=== PATIENT | female | born 1945 | race Caucasian/White ===

== ENCOUNTER 2019-12-22 17:52 | Emergency (ER) | payer MEDICARE, SELFPAY ==
--- NOTE | 2019-12-22 | ECG_ITS ---
Test Reason : SOB Blood Pressure : / mmHG Vent. Rate : 068 BPM Atrial Rate : 068 BPM P-R Int : 146 ms QRS Dur : 086 ms QT Int : 492 ms P-R-T Axes : 029 037 057 degrees QTc Int : 523 ms Sinus rhythm with frequent Premature ventricular complexes in a pattern of bigeminy Moderate voltage criteria for LVH, may be normal variant Prolonged QT Abnormal ECG When compared with ECG of 07-MAY-2019 19:09, Premature ventricular complexes are now Present Non-specific change in ST segment in Inferior leads Nonspecific T wave abnormality, improved in Inferior leads T wave inversion no longer evident in Lateral leads QT has lengthened Referred By: James Marsh Electronically Signed By:MAURICIO DE LA VEGA
--- NOTE | 2019-12-22 | XR_ITS ---
EXAMINATION: XR CHEST CLINICAL INFORMATION: Cough, wheezing, dyspnea, concern for pneumonia. COMPARISON: CTA chest 05/07/2019 TECHNIQUE: Frontal view of the chest was obtained. FINDINGS: Status post median sternotomy. Cardiomediastinal silhouette is normal in size. Status post CABG. Mild bronchial wall thickening without consolidation. No pleural effusion or pneumothorax. IMPRESSION: Mild bronchial wall thickening suggests small airways disease. No consolidation.
[2019-12-22 18:05] VITALS: BP 161/72; PULSE 74; RESP 14; TEMP 37.3; O2SAT 99; BMI 21.9
[2019-12-22] MEDS: Albuterol/Iprat 2.5/0.5MG 3 ML AMPUL.NEB INHALE (18:46)
--- NOTE | 2019-12-22 19:13 | ED.SOB ---
HPI - SOB/Dyspnea General Chief Complaint: Dyspnea <JESS Varma Last Filed: 12/23/19 02:04> Stated Complaint: cough,sob <JESS Varma Last Filed: 12/23/19 02:04> Time Seen by Provider: 12/22/19 18:41 <JESS Varma Last Filed: 12/23/19 02:04> History of Present Illness HPI Narrative: Patient presents to ED for coughing and shortness of breath for the past 2 days. Patient states white phlegm when coughing. Patient states no chest pain. Patient denies any swelling of lower extremities. Patient states no recent long travel or recent surgery. Patient does states history of asthma and no relief with albuterol. Patient denies anyone else at home having COVID like symptoms. Patient denies any chest pain on inspiration, swelling of lower extremity,calf pain, recent long travel, or recent surgery. patient denies coughing up blood <JESS Varma Last Filed: 12/23/19 02:04> MD elicited complaint: shortness of breath and asthma attack <JESS Varma Last Filed: 12/23/19 02:04> Pertinent past history: asthma <JESS Vrama Last Filed: 12/23/19 02:04> Onset (ago): day(s) ( Two days) <JESS Varma Last Filed: 12/23/19 02:04> Exacerbating factors: coughing <JESS Varma Last Filed: 12/23/19 02:04> Known history of: asthma <JESS Varma Last Filed: 12/23/19 02:04> Associated symptoms: cough, wheezing and sputum production (white) <JESS Varma Last Filed: 12/23/19 02:04> Treatment prior to arrival: bronchodilator <JESS Varma Last Filed: 12/23/19 02:04> Related Data Home oxygen amount: none <JESS Varma Last Filed: 12/23/19 02:04> Home Medications: Home Medications Medication Instructions Recorded Confirmed atorvastatin 40 mg tablet mg PO 12/17/19 blood sugar diagnostic #10 ea 12/17/19 calcium carbonate 600 mg (1,500 1 tab PO QAM 12/17/19 mg)-vitamin D3 400 unit tablet carvedilol 3.125 mg tablet 3.125 mg PO BID 12/17/19 donepezil 10 mg tablet 10 mg PO BEDTIME 12/17/19 fluoxetine 10 mg capsule 10 mg PO QAM 12/17/19 fluticasone 500 mcg-salmeterol 50 1 ea INHALATION BID 12/17/19 mcg/dose blistr powdr for inhalation fluticasone propionate 50 2 spray INTRANASAL DAILY 12/17/19 mcg/actuation nasal spray,suspension furosemide 20 mg tablet 20 mg PO QAM 12/17/19 gabapentin 300 mg capsule 300 mg PO BEDTIME 12/17/19 hydralazine 50 mg tablet 50 mg PO BID 12/17/19 insulin glargine 100 unit/mL (3 12 unit SUBCUT BEDTIME 12/17/19 mL) subcutaneous pen lancets 33 gauge #100 ea 12/17/19 losartan 25 mg tablet 25 mg PO DAILY 12/17/19 pen needle, diabetic 31 gauge x #1200 ea 12/17/19 5/16 trazodone 50 mg tablet 25 mg PO BEDTIME 12/17/19 umeclidinium 62.5 mcg/actuation 0 inh INHALATION 12/17/19 blister powder for inhalation Previous Rx's Medication Instructions Recorded albuterol sulfate 2 puff INHALATION Q6H PRN #18 g 12/23/19 benzonatate [Tessalon Perles] 100 mg PO TID #15 cap 12/23/19 prednisone 40 mg PO DAILY #10 tab 12/23/19 <JESS Varma - Last Filed: 12/23/19 02:04> Allergies/Adverse Reactions: Allergies Allergy/AdvReac Type Severity Reaction Status Date / Time No Known Allergies Allergy Unverified 12/04/19 18:29 [No Known Allergies*] <JESS Varma - Last Filed: 12/23/19 02:04> Review of Systems Review of Systems: Negative for any swelling of lower extremities, calf pain, fever, chills, night sweats, or increased use of pill at night. <JESS Varma - Last Filed: 12/23/19 02:04> Yes all other systems are reviewed and are negative <JESS Varma - Last Filed: 12/23/19 02:04> Constitutional: Constitutional: Reports no additional constitutional complaints and Denies snoring <JESS Varma - Last Filed: 12/23/19 02:04> Cardiovascular: Cardiovascular: Denies chest pain, Denies chest pain at rest, Denies chest pain with activity, Denies rapid heart rate, Denies pedal edema, Reports dyspnea, Denies dyspnea on exertion, Denies orthopnea and Denies paroxysmal nocturnal dyspnea <JESS Varma - Last Filed: 12/23/19 02:04> Respiratory: Respiratory: Reports cough, Denies hemoptysis, Denies pain on inspiration, Reports pain with cough, Reports dyspnea, Denies dyspnea on exertion, Denies snoring, Denies stridor and Reports wheezing <JESS Varma - Last Filed: 12/23/19 02:04> Gastrointestinal: Gastrointestinal: Reports no additional gastrointestinal complaints, Denies abdominal pain, Denies melena, Denies hematochezia and Denies change in bowel habits <JESS Varma - Last Filed: 12/23/19 02:04> Allergic/Immunologic: Allergic/Immunologic: Reports wheezing <JESS Varma - Last Filed: 12/23/19 02:04> [facility] Past Medical History Medical History: Medical History (Updated 12/23/19 @ 00:24 by JESS Varma) Asthma Diabetes Hypertension <JESS Varma - Last Filed: 12/23/19 02:04> Social History Social History: Social History Alcohol intake: never Smoking Status: Never smoker Use of substances other than those prescribed or required for medical reasons: No Advance Directives: No Advance Directives Information Provided: Yes <JESS Varma - Last Filed: 12/23/19 02:04> Physical Exam Vital Signs and I&O and Narrative: Vital Signs and I&O: Vital Signs Temp 97.9 F 12/22/19 22:00 Pulse 55 12/22/19 22:00 Resp 18 12/22/19 22:00 BP 166/73 H 12/22/19 22:00 Pulse Ox 99 12/22/19 22:00 Intake & Output 12/22/19 12/22/19 12/23/19 06:59 18:59 06:59 Intake Total 13.333 / 13.333 Balance 13.333 13.333 Weight 54.431 kg Intake: Intake, IV Amoun t 13. / 13.333 Magnesium Sulf ate/H2O 2 gm In 13.333 / 13.333 50 ml @ 50 mls /hr IV ONCE ONE Rx#:[id number] Body Mass Index 21.9 <JESS Varma Last Filed: 12/23/19 02:04> Vital Signs and I&O: Vital Signs Temp 97.9 F 12/22/19 22:00 Pulse 55 12/22/19 22:00 Resp 18 12/22/19 22:00 BP 166/73 H 12/22/19 22:00 Pulse Ox 99 12/22/19 22:00 Intake & Output 12/22/19 12/22/19 12/23/19 06:59 18:59 06:59 Intake Total 13.333 / 13.333 Balance 13. / 13.333 Weight 54.431 kg Intake: Intake, IV Amoun t 13. / .333 Magnesium Sulf ate/H2O 2 gm In 13. / .333 50 ml @ 50 mls /hr IV ONCE ONE Rx#:[id number] Body Mass Index 21.9 <Michael Mcpherson DO - Last Filed: 12/23/19 02:28> Const: General: healthy appearing and comfortable <JESS Varma Last Filed: 12/23/19 02:04> Orientation/consciousness: oriented to person, oriented to place, oriented to time and patient oriented x3 <JESS Varma Last Filed: 12/23/19 02:04> Chest: Chest palpation & inspection: normal inspection of the chest, normal palpation of entire chest wall, no crepitus and no localized rib tenderness <JESS Varma Last Filed: 12/23/19 02:04> Resp: Effort & Inspection: normal respiratory effort, able to speak in complete sentences, no pursed lip breathing, no respiratory distress, no stridor, not tachypneic, no tracheal deviation, no tripod positioning and No prolonged expiratory phase <JESS Varma Last Filed: 12/23/19 02:04> Auscultation: wheezes <JESS Varma Last Filed: 12/23/19 02:04> Cardio: Jugular venous distension: no JVD <JESS Varma Last Filed: 12/23/19 02:04> GI: Inspection: Yes normal to inspection, No Abdominal wall edema, No distended and No visible herniation <JESS Varma Last Filed: 12/23/19 02:04> Palpation (GI): nontender, no guarding and not rigid <JESS Varma Last Filed: 12/23/19 02:04> Neuro: General: oriented to person, oriented to place, oriented to time, patient oriented x3 and gait normal <JESS Varma Last Filed: 12/23/19 02:04> Extrem: General: Yes normal to inspection, Yes full ROM, Yes no pedal edema, Yes no calf tenderness and No edema <JESS Varma Last Filed: 12/23/19 02:04> Course Course Course Narrative: Patient 3 physical exam indicates asthma exacerbation, but due to history of DC patient will at least have a EKG and troponin done. Patient will be given hypertrophic BM, magnesium, and Solu-Medrol. Chest x-ray will also be ordered. History physical exam does not indicate PE <JESS Varma Last Filed: 12/23/19 02:04> Reevaluation(s) Reevaluation #1: history physical exam indicate asthma exacerbation. Patient feeling better. Patient's wheezing improved. 02 Saturation on room air is 99%. Patient's chest x-ray negative for pneumonia. BNP negative. Troponin less than 5 after 2 days of coughing with shortness of breath. History physical exam does not indicate CHF exacerbation, DC, or pneumonia. Patient is swabbed for COVID-19. Patient will be discharged <JESS Varma Last Filed: 12/23/19 02:04> Time: 23:57 <JESS Varma Last Filed: 12/23/19 02:04> MDM - SOB/Dyspnea Lab Data Result diagrams: : 12/22/19 22:20 12/22/19 21:57 <JESS Varma Last Filed: 12/23/19 02:04> Labs: Lab Results 10/05/20 10/05/20 10/05/20 Range/Units 20:58 20:58 20:58 WBC (4.8-10.8) X10*3/uL RBC (4.20-5.50) X10*6/uL Hgb (12.0-16.0) g/dl Hct (37-47) % MCV (80-98) fL MCH (27.0-33.0) pg MCHC (31.0-35.0) g/dl RDW (11.0-16.0) % Plt Count (160-400) X10*3/uL MPV (9.4-12.3) fL Immature Gran % (Auto) (0.0-0.4) % Neut % (Auto) (45-73) % Lymph % (Auto) (20-40) % [place] % (Auto) (2-11) % Eos % (Auto) (0-4) % Baso % (Auto) (0-2) % Neut # (Auto) (2.0-8.3) X10*3/uL Lymph # (Auto) (1.2-4.9) X10*3/uL [place] # (Auto) (0.1-1.2) X10*3/uL Eos # (Auto) (0.0-0.4) X10*3/uL Baso # (Auto) (0.0-0.2) X10*3/uL Abs Immat Gran (auto) (0.00-0.03) X10*3/uL Absolute Nucleated RBC (0.0-0.012) X10*3/uL Nucleated RBC % (auto) (0.0-0.2) /100WBC Smear Tech's Comments PT 12.1 (10.8-13.0) SEC INR 1.0 (0.9-1.1) APTT 30.0 (24.1-38.0) SEC Sodium (135-145) mmol/L Potassium (3.3-5.1) mmol/l Chloride (96-108) mmol/L Carbon Dioxide (22-29) mmol/L Anion Gap (12-20) BUN (9-16) mg/dL Creatinine (0.5-1.4) mg/dL Estim Creat Clear Calc Estimated GFR Random Glucose (60-115) mg/dL Calcium (8.4-10.2) mg/dL Magnesium (1.6-2.6) mg/dL Troponin I High Sens 4.1 (<3.5-17.0) ng/L B-Natriuretic Peptide 124 H (<100) pg/mL 12/22/19 12/22/19 12/22/19 Range/Units 21:57 21:57 22:20 WBC 9.3 (4.8-10.8) X10*3/uL RBC 3.83 L (4.20-5.50) X10*6/uL Hgb 11.3 L (12.0-16.0) g/dl Hct 36.7 L (37-47) % MCV 95.8 (80-98) fL MCH 29.5 (27.0-33.0) pg MCHC 30.8 L (31.0-35.0) g/dl RDW 12.5 (11.0-16.0) % Plt Count 218 (160-400) X10*3/uL MPV 11.3 (9.4-12.3) fL Immature Gran % (Auto) 0.1 (0.0-0.4) % Neut % (Auto) 32.5 L (45-73) % Lymph % (Auto) 41.6 H (20-40) % [place] % (Auto) 17.1 H (2-11) % Eos % (Auto) 8.1 H (0-4) % Baso % (Auto) 0.6 (0-2) % Neut # (Auto) 3.0 (2.0-8.3) X10*3/uL Lymph # (Auto) 3.9 (1.2-4.9) X10*3/uL [place] # (Auto) 1.6 H (0.1-1.2) X10*3/uL Eos # (Auto) 0.8 H (0.0-0.4) X10*3/uL Baso # (Auto) 0.1 (0.0-0.2) X10*3/uL Abs Immat Gran (auto) 0.01 (0.00-0.03) X10*3/uL Absolute Nucleated RBC 0.000 (0.0-0.012) X10*3/uL Nucleated RBC % (auto) 0.0 (0.0-0.2) /100WBC Smear Tech's Comments VERIFIED PT (10.8-13.0) SEC INR (0.9-1.1) APTT (24.1-38.0) SEC Sodium 142 (135-145) mmol/L Potassium 4.3 (3.3-5.1) mmol/l Chloride 107 (96-108) mmol/L Carbon Dioxide 26 (22-29) mmol/L Anion Gap 13 (12-20) BUN 16 (9-16) mg/dL Creatinine 0.98 (0.5-1.4) mg/dL Estim Creat Clear Calc 39.8 Estimated GFR 55 Random Glucose 98 (60-115) mg/dL Calcium 8.7 (8.4-10.2) mg/dL Magnesium 2.1 (1.6-2.6) mg/dL Troponin I High Sens (<3.5-17.0) ng/L B-Natriuretic Peptide (<100) pg/mL <JESS Varma - Last Filed: 12/23/19 02:04> Lab Results 12/22/19 12/22/19 12/22/19 Range/Units 20:58 20:58 20:58 WBC (4.8-10.8) X10*3/uL RBC (4.20-5.50) X10*6/uL Hgb (12.0-16.0) g/dl Hct (37-47) % MCV (80-98) fL MCH (27.0-33.0) pg MCHC (31.0-35.0) g/dl RDW (11.0-16.0) % Plt Count (160-400) X10*3/uL MPV (9.4-12.3) fL Immature Gran % (Auto) (0.0-0.4) % Neut % (Auto) (45-73) % Lymph % (Auto) (20-40) % [place] % (Auto) (2-11) % Eos % (Auto) (0-4) % Baso % (Auto) (0-2) % Neut # (Auto) (2.0-8.3) X10*3/uL Lymph # (Auto) (1.2-4.9) X10*3/uL [place] # (Auto) (0.1-1.2) X10*3/uL Eos # (Auto) (0.0-0.4) X10*3/uL Baso # (Auto) (0.0-0.2) X10*3/uL Abs Immat Gran (auto) (0.00-0.03) X10*3/uL Absolute Nucleated RBC (0.0-0.012) X10*3/uL Nucleated RBC % (auto) (0.0-0.2) /100WBC Smear Tech's Comments PT 12.1 (10.8-13.0) SEC INR 1.0 (0.9-1.1) APTT 30.0 (24.1-38.0) SEC Sodium (135-145) mmol/L Potassium (3.3-5.1) mmol/l Chloride (96-108) mmol/L Carbon Dioxide (22-29) mmol/L Anion Gap (12-20) BUN (9-16) mg/dL Creatinine (0.5-1.4) mg/dL Estim Creat Clear Calc Estimated GFR Random Glucose (60-115) mg/dL Calcium (8.4-10.2) mg/dL Magnesium (1.6-2.6) mg/dL Troponin I High Sens 4.1 (<3.5-17.0) ng/L B-Natriuretic Peptide 124 H (<100) pg/mL 12/22/19 12/22/19 12/22/19 Range/Units 21:57 21:57 22:20 WBC 9.3 (4.8-10.8) X10*3/uL RBC 3.83 L (4.20-5.50) X10*6/uL Hgb 11.3 L (12.0-16.0) g/dl Hct 36.7 L (37-47) % MCV 95.8 (80-98) fL MCH 29.5 (27.0-33.0) pg MCHC 30.8 L (31.0-35.0) g/dl RDW 12.5 (11.0-16.0) % Plt Count 218 (160-400) X10*3/uL MPV 11.3 (9.4-12.3) fL Immature Gran % (Auto) 0.1 (0.0-0.4) % Neut % (Auto) 32.5 L (45-73) % Lymph % (Auto) 41.6 H (20-40) % [place] % (Auto) 17.1 H (2-11) % Eos % (Auto) 8.1 H (0-4) % Baso % (Auto) 0.6 (0-2) % Neut # (Auto) 3.0 (2.0-8.3) X10*3/uL Lymph # (Auto) 3.9 (1.2-4.9) X10*3/uL [place] # (Auto) 1.6 H (0.1-1.2) X10*3/uL Eos # (Auto) 0.8 H (0.0-0.4) X10*3/uL Baso # (Auto) 0.1 (0.0-0.2) X10*3/uL Abs Immat Gran (auto) 0.01 (0.00-0.03) X10*3/uL Absolute Nucleated RBC 0.000 (0.0-0.012) X10*3/uL Nucleated RBC % (auto) 0.0 (0.0-0.2) /100WBC Smear Tech's Comments VERIFIED PT (10.8-13.0) SEC INR (0.9-1.1) APTT (24.1-38.0) SEC Sodium 142 (135-145) mmol/L Potassium 4.3 (3.3-5.1) mmol/l Chloride 107 (96-108) mmol/L Carbon Dioxide 26 (22-29) mmol/L Anion Gap 13 (12-20) BUN 16 (9-16) mg/dL Creatinine 0.98 (0.5-1.4) mg/dL Estim Creat Clear Calc 39.8 Estimated GFR 55 Random Glucose 98 (60-115) mg/dL Calcium 8.7 (8.4-10.2) mg/dL Magnesium 2.1 (1.6-2.6) mg/dL Troponin I High Sens (<3.5-17.0) ng/L B-Natriuretic Peptide (<100) pg/mL <Michael Mcpherson DO - Last Filed: 12/23/19 02:28> ECG Data Interpretation: sinus rhythm with PVCs bigeminy. Ventricular rate 68 beats per minute. Pr interval 146 MS <JESS Varma Last Filed: 12/23/19 02:04> Discharge Plan Discharge Clinical Impression: Asthma with exacerbation Qualifiers: Asthma severity: mild Asthma persistence: unspecified Qualified Code(s): J45.901 - Unspecified asthma with (acute) exacerbation <JESS Varma Last Filed: 12/23/19 02:04> Patient Disposition: Home, Self-Care <JESS Varma Last Filed: 12/23/19 02:04> Instructions: Asthma (ED) <JESS Varma Last Filed: 12/23/19 02:04> Additional Instructions: return to ED for any swelling of lower extremities, shortness of breath, chest pain, coughing up blood, calf pain, fever, chills, weakness, or any other concerning symptoms. If COVID test come back positive recommend 14 days self-isolation. <JESS Varma Last Filed: 12/23/19 02:04> Prescriptions: New albuterol sulfate 90 mcg/actuation HFA aerosol inhaler 2 puff inhalation Q6H PRN (Reason: shortness of breath or wheezing) Qty: 18 RF: 0 prednisone 20 mg tablet 40 mg PO DAILY Qty: 10 RF: 0 benzonatate [Tessalon Perles] 100 mg capsule 100 mg PO TID Qty: 15 RF: 0 <JESS Varma Last Filed: 12/23/19 02:04> Referrals: Physician,Unknown [Primary Care Provider] - 2 days ( please follow-up with the PCP for asthma exacerbation. Patient discharged with steroids, cough medication, and albuterol inhaler. Patient is swabbed for the COVID-19 virus.) <JESS Varma Last Filed: 12/23/19 02:04> Interventions: ED Discharge Assessment Last Done: 12/23/19 00:34 <JESS Varma Last Filed: 12/23/19 02:04> Discharge Date/Time: 12/23/19 00:49 <JESS Varma Last Filed: 12/23/19 02:04> Print Language: Ukrainian <JESS Varma Last Filed: 12/23/19 02:04>
[2019-12-22 20:00] VITALS: BP 168/62; PULSE 56; RESP 22; TEMP 36.6; O2SAT 100
[2019-12-22 21:39] LABS: B Type Natriuretic Peptide 124 pg/mL (<100); Troponin-I High Sensitivity 4.1 ng/L (<3.5-17.0)
[2019-12-22 21:48] LABS: Prothrombin Time 12.1 SEC (10.8-13.0)
[2019-12-22 22:00] VITALS: BP 166/73; PULSE 55; RESP 18; TEMP 36.6; O2SAT 99
[2019-12-22] MEDS: Magnesium Sulfate/H2O 2 GM/50 ML PIGGYBACK IV (22:04)
[2019-12-22] MEDS: methylPREDNISolone Sod Succ/PF 125 MG/2 ML VIAL IVPUSH (22:04)
--- NOTE | 2019-12-22 22:16 | PC.NURSE ---
pt a&ox3, in/wx wheezing, rll fine crackles, pt vss, pt medicated per order, will continue to monitor.
[2019-12-22 22:27] LABS: Basophils Absolute Auto 0.1 X10*3/uL (0.0-0.2); Basophils Percent Auto 0.6 % (0-2); Eosinophils Absolute Auto 0.8 X10*3/uL (0.0-0.4); Eosinophils Percent Auto 8.1 % (0-4); Hematocrit 36.7 % (37-47); Hemoglobin 11.3 g/dl (12.0-16.0); Imm Gran Abs Auto 0.01 X10*3/uL (0.00-0.03); Imm Gran Pct Auto 0.1 % (0.0-0.4); Lymphocytes Absolute Auto 3.9 X10*3/uL (1.2-4.9); Lymphocytes Percent Auto 41.6 % (20-40); MANUAL DIFF FLAG SCAN; Mean Corpuscular HGB Conc 30.8 g/dl (31.0-35.0); Mean Corpuscular Hemoglobin 29.5 pg (27.0-33.0); Mean Corpuscular Volume 95.8 fL (80-98); Mean Platelet Volume 11.3 fL (9.4-12.3); Monocytes Absolute Auto 1.6 X10*3/uL (0.1-1.2); Monocytes Percent Auto 17.1 % (2-11); Neutrophils Percent Auto 32.5 % (45-73); Platelet Count 218 X10*3/uL (160-400); Red Blood Count 3.83 X10*6/uL (4.20-5.50); Red Cell Distribution Width 12.5 % (11.0-16.0); SCAN SMEAR FLAG 1; White Blood Count 9.3 X10*3/uL (4.8-10.8)
[2019-12-22 22:32] LABS: Anion Gap 13 (12-20); Blood Urea Nitrogen 16 mg/dL (9-16); Calcium 8.7 mg/dL (8.4-10.2); Carbon Dioxide 26 mmol/L (22-29); Chloride 107 mmol/L (96-108); Creatinine Clr Calc Pharmacy 39.8; Estimated Glomerular Filt Rate 55; Glucose Random 98 mg/dL (60-115); Potassium 4.3 mmol/l (3.3-5.1); Sodium 142 mmol/L (135-145)
[2019-12-22 22:33] LABS: Magnesium 2.1 mg/dL (1.6-2.6)
--- NOTE | 2019-12-22 22:40 | PC.NURSE ---
PER LESIA ROSALES [phone], CONTACT WITH UPDATES/STATUS CHANGE.
[2019-12-22 22:47] LABS: SLIDE REVIEW VERIFIED
== END 2019-12-23 00:49 | disposition home or self-care (01) ==
PROVIDERS: Physician Assistant; Emergency Provider Emergency Medicine
DX: J45.901 Unspecified asthma with (acute) exacerbation (principal); Z20.828 Contact with and (suspected) exposure to other viral communicable diseases; I10 Essential (primary) hypertension; Z79.899 Other long term (current) drug therapy
CPT/HCPCS: 36415; 71045; 80048; 83735; 83880; 84484; 85025; 85610; 85730; 87635; 93005; 93010; 96365; 96375; 99284

== ENCOUNTER 2020-02-11 12:53 | Outpatient (REF) | payer MEDICARE, SELFPAY ==
--- NOTE | 2020-02-11 13:03 | MM_ITS ---
EXAMINATION: MM SCREENING DIGITAL BREAST TOMOSYNTHESIS, BILATERAL CLINICAL INFORMATION: Screening. Asymptomatic. The lifetime risk of breast cancer based on the Tyrer-Cuzick Model is 2%. COMPARISON: Mammography: 08/27/2018, 07/10/2017 TECHNIQUE: Digital breast tomosynthesis is performed in both the craniocaudal and mediolateral oblique views along with computer-aided detection (CAD). Synthesized 2D images are generated from the tomosynthesis. Additional bilateral MLO views are provided. FINDINGS: There are scattered areas of fibroglandular density (ACR BI-RADS breast composition Category b). There are no significant masses, abnormal calcifications, or other abnormalities. The axilla and skin contours are unremarkable. MM/MM tomosynthesis screening BI IMPRESSION: No mammographic evidence of malignancy. ASSESSMENT: BI-RADS 1: Negative RECOMMENDATION: Routine annual mammography screening. This patient's information was entered into a reminder system with a target due date for their next mammogram.
== END 2020-02-11 12:54 | disposition home or self-care (01) ==
LOC: HO.MAMMO 12:53
PROVIDERS: PCP Internal Medicine; Visit Provider Internal Medicine
DX: Z12.31 Encounter for screening mammogram for malignant neoplasm of breast (principal)
CPT/HCPCS: 77063; 77067

== ENCOUNTER → 2020-03-02 15:48 | Outpatient (BNVA) | payer MEDICARE, SELFPAY | PROVIDERS: PCP Internal Medicine; Visit Provider Internal Medicine | DX: J44.1 Chronic obstructive pulmonary disease with (acute) exacerbation (principal); Z79.899 Other long term (current) drug therapy | CPT/HCPCS: 99212 ==

== ENCOUNTER 2020-04-23 16:39 | Outpatient (REF) | payer MEDICARE, SELFPAY | END 2020-04-23 16:40 | disposition home or self-care (01) | LOC: HO.LAB 16:39 | PROVIDERS: Visit Provider Internal Medicine | DX: Z20.822 Contact with and (suspected) exposure to COVID-19 (principal) | CPT/HCPCS: 36415; C9803; U0003; U0005 ==

== ENCOUNTER → 2020-05-31 11:43 | Outpatient (BNVA) | payer MEDICARE, SELFPAY | PROVIDERS: PCP Internal Medicine; Visit Provider Internal Medicine | DX: J44.1 Chronic obstructive pulmonary disease with (acute) exacerbation (principal); J30.9 Allergic rhinitis, unspecified; Z79.51 Long term (current) use of inhaled steroids | CPT/HCPCS: 99212 ==

== ENCOUNTER 2020-09-15 07:43 | Outpatient (REF) | payer MEDICARE, SELFPAY | END 2020-09-15 07:44 | disposition home or self-care (01) | LOC: HO.HOSX 07:43 | PROVIDERS: Visit Provider Physician Assistant | DX: Z13.89 Encounter for screening for other disorder (principal) ==

== ENCOUNTER 2020-09-30 11:49 | Outpatient (REF) | payer MEDICARE, SELFPAY ==
--- NOTE | ~2020-09-30 | XR_ITS ---
EXAMINATION: XR SHOULDER, RIGHT XR SHOULDER, LEFT CLINICAL INFORMATION: Bilateral shoulder pain. COMPARISON: Right and left shoulder radiographs dated 04/13/2014. TECHNIQUE: AP, Grashey, scapular Y views of the right and left shoulder. FINDINGS: Right Shoulder: No acute fracture or dislocation. Moderate acromioclavicular marginal osteophytes. Small glenohumeral marginal osteophytes. Large subacromial spurs. Minimal supraspinatus calcific tendinitis. No osseous erosion. Left Shoulder: No acute fracture or dislocation. Moderate acromioclavicular marginal osteophytes with prominent subchondral spurring. Small glenohumeral marginal osteophytes. No osseous erosion. 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 New minimal supraspinatus calcific tendinitis. LEFT SHOULDER: Moderate acromioclavicular and mild glenohumeral osteoarthritis, unchanged.
--- NOTE | ~2020-09-30 | XR_ITS ---
EXAMINATION: XR SHOULDER, RIGHT XR SHOULDER, LEFT CLINICAL INFORMATION: Bilateral shoulder pain. COMPARISON: Right and left shoulder radiographs dated 04/13/2014. TECHNIQUE: AP, Grashey, scapular Y views of the right and left shoulder. FINDINGS: Right Shoulder: No acute fracture or dislocation. Moderate acromioclavicular marginal osteophytes. Small glenohumeral marginal osteophytes. Large subacromial spurs. Minimal supraspinatus calcific tendinitis. No osseous erosion. Left Shoulder: No acute fracture or dislocation. Moderate acromioclavicular marginal osteophytes with prominent subchondral spurring. Small glenohumeral marginal osteophytes. No osseous erosion. 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 New minimal supraspinatus calcific tendinitis. LEFT SHOULDER: Moderate acromioclavicular and mild glenohumeral osteoarthritis, unchanged.
[2020-09-30 13:11] LABS: MANUAL DIFF FLAG NO
[2020-09-30 13:19] LABS: Basophils Absolute Auto 0.1 X10*3/uL (0.0-0.2); Basophils Percent Auto 0.7 % (0-2); Eosinophils Absolute Auto 1.4 X10*3/uL (0.0-0.4); Eosinophils Percent Auto 13.9 % (0-4); Hematocrit 37.5 % (37-47); Hemoglobin 11.5 g/dl (12.0-16.0); Imm Gran Abs Auto 0.02 X10*3/uL (0.00-0.03); Imm Gran Pct Auto 0.2 % (0.0-0.4); Lymphocytes Absolute Auto 3.2 X10*3/uL (1.2-4.9); Lymphocytes Percent Auto 32.5 % (20-40); Mean Corpuscular HGB Conc 30.7 g/dl (31.0-35.0); Mean Corpuscular Hemoglobin 28.7 pg (27.0-33.0); Mean Corpuscular Volume 93.5 fL (80-98); Mean Platelet Volume 11.4 fL (9.4-12.3); Monocytes Percent Auto 9.9 % (2-11); Neutrophils Absolute Auto 4.2 X10*3/uL (2.0-8.3); Neutrophils Percent Auto 42.8 % (45-73); Platelet Count 284 X10*3/uL (160-400); Red Blood Count 4.01 X10*6/uL (4.20-5.50); Red Cell Distribution Width 12.5 % (11.0-16.0); White Blood Count 9.8 X10*3/uL (4.8-10.8)
[2020-09-30 13:36] LABS: Alanine Aminotransferase 16 U/L (0-31); Alkaline Phosphatase 100 U/L (39-117); Anion Gap 13 (12-20); Aspartate Amino Transferase 17 U/L (5-31); Bilirubin Total 0.6 mg/dL (0.0-1.0); Blood Urea Nitrogen 16 mg/dL (9-16); Calcium 9.1 mg/dL (8.4-10.2); Carbon Dioxide 27 mmol/L (22-29); Chloride 109 mmol/L (96-108); Cholesterol 144 mg/dL; Estimated Glomerular Filt Rate 54; Glucose Random 167 mg/dL (60-115); HDL Cholesterol 58 mg/dL; LDL Cholesterol Calculated 69 mg/dl; Potassium 4.8 mmol/L (3.3-5.1); Sodium 144 mmol/L (135-145); Total Protein 7.4 g/dL (6.5-8.0); Triglycerides 89 mg/dL
[2020-09-30 13:48] LABS: Vitamin D 25-OH Total 37.7 ng/mL (>30)
[2020-09-30 14:03] LABS: Folate 17.8 ng/mL (> or = 4.0); Vitamin B12 394 pg/mL (200-900)
[2020-09-30 14:08] LABS: Creatinine Urine 207.72 mg/dL; Microalbum/Creatinine Ratio Ur 8.6 ug/mg cr
== END 2020-09-30 11:50 | disposition home or self-care (01) ==
LOC: HO.XRAY 11:49
PROVIDERS: PCP Internal Medicine; Visit Provider Internal Medicine
DX: I10 Essential (primary) hypertension (principal); G30.9 Alzheimer's disease, unspecified; M25.511 Pain in right shoulder; M25.512 Pain in left shoulder
CPT/HCPCS: 36415; 73030; 80053; 80061; 82043; 82306; 82607; 82746; 85025

== ENCOUNTER 2020-12-03 18:20 | Emergency (ER) | payer MEDICARE, SELFPAY ==
--- NOTE | ~2020-12-03 | XR_ITS ---
EXAMINATION: XR CHEST CLINICAL INFORMATION: Shortness of breath COMPARISON: 12/22/2019 TECHNIQUE: Frontal view of the chest was obtained. FINDINGS: Evidence of previous cardiac surgery. Stable changes of likely nonspecific bronchitis or peribronchial thickening and increased perihilar markings. No focal consolidation or pleural disease. Heart size remains mildly enlarged. XR/XR chest 1V IMPRESSION: Changes of nonspecific bronchitis suspected as above.
[2020-12-03 18:27] VITALS: BP 129/58; BP 146/82; PULSE 84; PULSE 86; RESP 20; TEMP 37.2; O2SAT 92; O2SAT 95; BMI 31.3
--- NOTE | 2020-12-03 18:58 | ECG_ITS ---
Test Reason : SOB Blood Pressure : / mmHG Vent. Rate : 077 BPM Atrial Rate : 288 BPM P-R Int : 000 ms QRS Dur : 084 ms QT Int : 316 ms P-R-T Axes : 013 033 101 degrees QTc Int : 357 ms Normal sinus rhythm with Premature ventricular complexes Nonspecific T wave abnormality Abnormal ECG When compared with ECG of 22-DEC-2019 20:26, Nonspecific T wave abnormality, worse in Inferior leads Nonspecific T wave abnormality, worse in Lateral leads QT has shortened Referred By: Ammon Spence Electronically Signed By:MAURICIO DE LA VEGA
--- NOTE | 2020-12-03 19:16 | ED_ITS ---
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 This is a 74-year-old female with history of asthma came in for evaluation of shortness of breath that is been worsening over the past few days, patient is vaccinated for COVID-19, patient ran out of her asthma medication for the past month. Patient declined chest pain. Related Data Home Medications Medication Instructions Recorded Confirmed atorvastatin 40 mg tablet mg PO 12/17/19 blood sugar diagnostic #10 ea 12/17/19 calcium carbonate 600 mg (1,500 1 tab PO QAM 12/17/19 mg)-vitamin D3 400 unit tablet carvedilol 3.125 mg tablet 3.125 mg PO BID 12/17/19 donepezil 10 mg tablet 10 mg PO BEDTIME 12/17/19 fluoxetine 10 mg capsule 10 mg PO QAM 12/17/19 fluticasone 500 mcg-salmeterol 50 1 ea INHALATION BID 12/17/19 mcg/dose blistr powdr for inhalation fluticasone propionate 50 2 spray INTRANASAL DAILY 12/17/19 mcg/actuation nasal spray,suspension furosemide 20 mg tablet 20 mg PO QAM 12/17/19 gabapentin 300 mg capsule 300 mg PO BEDTIME 12/17/19 hydralazine 50 mg tablet 50 mg PO BID 12/17/19 insulin glargine 100 unit/mL (3 12 unit SUBCUT BEDTIME 12/17/19 mL) subcutaneous pen lancets 33 gauge #100 ea 12/17/19 losartan 25 mg tablet 25 mg PO DAILY 12/17/19 pen needle, diabetic 31 gauge x #1200 ea 12/17/19 5/16 trazodone 50 mg tablet 25 mg PO BEDTIME 12/17/19 aspirin 81 mg tablet,delayed 81 mg PO BEDTIME 01/07/20 release docusate sodium 100 mg capsule 100 mg PO BID 01/07/20 ipratropium 0.5 mg-albuterol 3 mg ml INHALATION 01/07/20 (2.5 mg base)/3 mL nebulization soln metformin 500 mg tablet 500 mg PO BEDTIME 01/07/20 quetiapine 25 mg tablet 25 mg PO BEDTIME 01/07/20 sennosides 8.6 mg tablet 17.2 mg PO DAILY 01/07/20 Previous Rx's Medication Instructions Recorded umeclidinium 62.5 mcg/actuation 1 inh INHALATION DAILY #30 cap 11/11/20 blister powder for inhalation (Incruse Ellipta) albuterol sulfate 90 mcg/actuation 1 inh INHALATION QID PRN #8.5 g 12/03/20 aerosol inhaler (ProAir HFA) azithromycin 250 mg tablet See Rx Instructions .ROUTE 12/03/20 (Zithromax Z-Rick) .COMPLEX #6 tab prednisone 20 mg tablet 20 mg PO BID #10 tab 12/03/20 Allergies Allergy/AdvReac Type Severity Reaction Status Date / Time No Known Allergies Allergy Verified 03/02/20 16:07 [No Known Allergies*] Review of Systems Review of Systems: All other systems are reviewed and are negative Constitutional: Reports as per HPI and Reports no additional constitutional complaints Eyes: Reports as per HPI and Reports no additional eye complaints Reports system reviewed and no additional complaints, except as documented Cardiovascular: Reports as per HPI and Reports no additional cardiovascular complaints Respiratory: Reports as per HPI and Reports no additional respiratory complaints Gastrointestinal: Reports as per HPI and Reports no additional gastrointestinal complaints Genitourinary: Reports no additional female genitourinary complaints Musculoskeletal: Reports no additional musculoskeletal complaints Skin/Breast: Reports system reviewed and no additional complaints, except as docu Psychiatric: Reports no additional psychiatric complaints Endocrine: Reports no additional endocrine complaints Hematologic/Lymphatic: Reports no additional hematologic/lymphatic complaints Allergic/Immunologic: Reports no additional allergic/immunologic complaints Reports system reviewed and no additional complaints, except as documented and Reports Abnormal speech present [facility] Past Medical History Medical History Allergic rhinitis Asthma COPD (chronic obstructive pulmonary disease) COPD exacerbation Cough Diabetes Hypertension Social History Social History Alcohol intake: never Smoked in Last 30 Days: No Use of substances other than those prescribed or required for medical reasons: No Advance Directives: No Advance Directives Information Provided: No Physical Exam Vital Signs: Vital Signs: Last Vital Signs Temp 99.0 F 12/03/20 18:27 Pulse 92 12/03/20 21:57 Resp 41 H 12/03/20 21:57 BP 145/69 H 12/03/20 21:57 Pulse Ox 96 12/03/20 21:57 Body Mass Index 31.3 Vital signs have been reviewed as appeared to be correct. Blood pressure normal. Heart rate normal. Respiration rate normal. Temperature normal. Oxygen saturation normal. Appearance: Alert. Oriented X3. No acute distress. Head: Normal external exam. Normocephalic. Atraumatic. No Ken signs noted. No raccoon eyes noted Eyes: PERRLA. EOMI. Conjunctiva and sclera normal. Eyelids normal. ENT: TM's Normal. Pharynx normal. Uvula midline. Moist mucous membranes. No tr ismus noted. No drooling noted. No muffled voice noted. Neck: Normal inspection. Neck supple. FROM. No adenopathy. Thyroid Normal. No meningeal signs. No neck mass noted. CVS: Normal heart rate and rhythm. Heart sound normal. No murmurs noted. Pulses normal throughout. Respiratory: No respiratory distress. Painless inspiration. Breath sounds normal. Diffuse mild expiratory wheezing, with prolonged expiration Chest nontender. No accessory muscle usage noted or decreased air movement noted. Abdomen: Soft and nontender. Bowel sounds normal in all 4 quadrants. No distention noted. No organomegaly noted. No visible injury noted. Back: No CVA tenderness. Full range of motion noted. Skin: Skin warm and dry. Normal skin color. Normal skin turgor. No rashes/lesions/lacerations noted. Extremities: No lower extremity edema. Extremities exhibit normal range of motion. Extremities nontender. Neuro: Oriented X 3. Cranial nerve exam: II-XII are grossly intact No motor deficit. No sensory deficit. Reflexes normal. Course Course Course Narrative: Assessment and plan. 74-year-old female with history of asthma came in with acute asthma exacerbation, patient has unremarkable workup in the emergency room negative for respiratory viral panel including COVID-19, chest x-ray was remarkable for bronchitis. Patient was reassessed symptoms improved no chest pain or shortness of breath. Will discharge the patient on bronchodilator/prednisone. Patient is scheduled to see a market research executive next month patient was instructed to keep the appointment with the market research executive. MDM - SOB/Dyspnea Lab Data Attestation: I reviewed the patient's lab results. Result diagrams: 12/03/20 19:25 12/03/20 19:25 Labs: Lab Results 12/03/20 12/03/20 12/03/20 Range/Units 19:25 19:25 19:25 WBC 14.9 H (4.8-10.8) X10*3/uL RBC 4.04 L (4.20-5.50) X10*6/uL Hgb 11.7 L (12.0-16.0) g/dl Hct 36.4 L (37-47) % MCV 90.1 (80-98) fL MCH 29.0 (27.0-33.0) pg MCHC 32.1 (31.0-35.0) g/dl RDW 12.5 (11.0-16.0) % Plt Count 269 (160-400) X10*3/uL MPV 11.4 (9.4-12.3) fL Immature Gran % (Auto) 0.3 (0.0-0.4) % Neut % (Auto) 87.0 H (45-73) % Lymph % (Auto) 9.8 L (20-40) % Luce % (Auto) 2.7 (2-11) % Eos % (Auto) 0.1 (0-4) % Baso % (Auto) 0.1 (0-2) % Lymph # (Auto) 1.5 (1.2-4.9) X10*3/uL Luce # (Auto) 0.4 (0.1-1.2) X10*3/uL Eos # (Auto) 0.0 (0.0-0.4) X10*3/uL Baso # (Auto) 0.0 (0.0-0.2) X10*3/uL Abs Immat Gran (auto) 0.05 H (0.00-0.03) X10*3/uL Absolute Neuts (auto) 12.9 H (2.0-8.3) X10*3/uL Absolute Nucleated RBC 0.000 (0.0-0.012) X10*3/uL Nucleated RBC % (auto) 0.0 (0.0-0.2) /100WBC Sodium 141 (135-145) mmol/L Potassium 4.6 (3.3-5.1) mmol/L Chloride 107 (96-108) mmol/L Carbon Dioxide 25 (22-29) mmol/L Anion Gap 14 (12-20) BUN 21 H (9-16) mg/dL Creatinine 0.99 (0.5-1.4) mg/dL Estim Creat Clear Calc 42.5 Estimated GFR 55 Random Glucose 210 H (60-115) mg/dL Calcium 9.3 (8.4-10.2) mg/dL Troponin I High Sens 7.3 (<3.5-17.0) ng/L B-Natriuretic Peptide 270 H (<100) pg/mL Lipase 65 (8-78) U/L Urine Color Urine Appearance Urine pH (5.0-8.0) Ur Specific [place] (1.005-1.025) Urine Protein (NEG-TRACE) MG/DL Urine Glucose (UA) (NEG) MG/DL Urine Ketones (NEG) MG/DL Urine Blood (NEG) Urine Nitrite (NEG) Ur Leukocyte Esterase (NEG) Urine RBC (0) /HPF Urine WBC (0-4) /HPF Ur Squamous Epith Cells /LPF Urine Bacteria /LPF Hyaline Casts /LPF Urine Yeast /HPF Coronavirus (PCR) (Negative) Influenza Type A (PCR) (Negative) Influenza Type B (PCR) (Negative) RSV RNA Qual (PCR) (Negative) 12/03/20 12/03/20 Range/Units 20:49 20:49 WBC (4.8-10.8) X10*3/uL RBC (4.20-5.50) X10*6/uL Hgb (12.0-16.0) g/dl Hct (37-47) % MCV (80-98) fL MCH (27.0-33.0) pg MCHC (31.0-35.0) g/dl RDW (11.0-16.0) % Plt Count (160-400) X10*3/uL MPV (9.4-12.3) fL Immature Gran % (Auto) (0.0-0.4) % Neut % (Auto) (45-73) % Lymph % (Auto) (20-40) % Luce % (Auto) (2-11) % Eos % (Auto) (0-4) % Baso % (Auto) (0-2) % Lymph # (Auto) (1.2-4.9) X10*3/uL Luce # (Auto) (0.1-1.2) X10*3/uL Eos # (Auto) (0.0-0.4) X10*3/uL Baso # (Auto) (0.0-0.2) X10*3/uL Abs Immat Gran (auto) (0.00-0.03) X10*3/uL Absolute Neuts (auto) (2.0-8.3) X10*3/uL Absolute Nucleated RBC (0.0-0.012) X10*3/uL Nucleated RBC % (auto) (0.0-0.2) /100WBC Sodium (135-145) mmol/L Potassium (3.3-5.1) mmol/L Chloride (96-108) mmol/L Carbon Dioxide (22-29) mmol/L Anion Gap (12-20) BUN (9-16) mg/dL Creatinine (0.5-1.4) mg/dL Estim Creat Clear Calc Estimated GFR Random Glucose (60-115) mg/dL Calcium (8.4-10.2) mg/dL Troponin I High Sens (<3.5-17.0) ng/L B-Natriuretic Peptide (<100) pg/mL Lipase (8-78) U/L Urine Color YELLOW Urine Appearance CLEAR Urine pH 6.0 (5.0-8.0) Ur Specific [place] 1.015 (1.005-1.025) Urine Protein NEG (NEG-TRACE) MG/DL Urine Glucose (UA) 100 H (NEG) MG/DL Urine Ketones NEG (NEG) MG/DL Urine Blood NEG (NEG) Urine Nitrite NEG (NEG) Ur Leukocyte Esterase TRACE H (NEG) Urine RBC 0-2 (0) /HPF Urine WBC 1-4 (0-4) /HPF Ur Squamous Epith Cells TRACE /LPF Urine Bacteria TRACE /LPF Hyaline Casts 1-4 /LPF Urine Yeast TRACE /HPF Coronavirus (PCR) NEGATIVE (Negative) Influenza Type A (PCR) NEGATIVE (Negative) Influenza Type B (PCR) NEGATIVE (Negative) RSV RNA Qual (PCR) NEGATIVE (Negative) Imaging Data Chest x-ray: Radiologist's impression: Nonspecific change for bronchitis. ECG Data Interpretation: Regular rhythm at 77 beats per minute with artifact likely sinus rhythm, normal axis deviation, PVCs. Discharge Plan Discharge Clinical Impression: Asthma with exacerbation Qualifiers: Asthma severity: mild Asthma persistence: unspecified Qualified Code(s): J45.901 - Unspecified asthma with (acute) exacerbation Patient Disposition: Home, Self-Care Instructions: Acute Bronchitis (ED) Prescriptions: New albuterol sulfate [ProAir HFA] 90 mcg/actuation HFA aerosol inhaler 1 inh inhalation QID PRN (Reason: shortness of breath or wheezing) Qty: 8.5 RF: 0 prednisone 20 mg tablet 20 mg PO BID Qty: 10 RF: 0 azithromycin [Zithromax Z-Rick] 250 mg tablet See Rx Instructions .ROUTE .COMPLEX Qty: 6 RF: 0 No Action Incruse Ellipta 62.5 mcg/actuation blister with device 1 inh inhalation DAILY Qty: 30 RF: 3 (DME) lancets 33 gauge misc See Rx Instructions ea Not Applicable TID Qty: 100 RF: 0 calcium carbonate-vitamin D3 600 mg(1,500mg) -400 unit tablet 1 tab PO QAM RF: 0 fluticasone propionate 50 mcg/actuation spray,suspension 2 spray intranasal DAILY RF: 0 furosemide 20 mg tablet 20 mg PO QAM RF: 0 hydralazine 50 mg tablet 50 mg PO BID RF: 0 gabapentin 300 mg capsule 300 mg PO BEDTIME RF: 0 losartan 25 mg tablet 25 mg PO DAILY RF: 0 fluticasone propion-salmeterol 500-50 mcg/dose blister with device 1 ea inhalation BID RF: 0 carvedilol 3.125 mg tablet 3.125 mg PO BID RF: 0 (DME) FreeStyle Lite Strips Strip See Rx Instructions ea Not Applicable TID Qty: 10 RF: 0 donepezil 10 mg tablet 10 mg PO BEDTIME RF: 0 atorvastatin 40 mg tablet PO RF: 0 Lantus Solostar U-100 Insulin 100 unit/mL (3 mL) insulin pen 12 unit subcut BEDTIME RF: 0 (DME) pen needle, diabetic 31 gauge x 5/16 needle See Rx Instructions ea .ROUTE .MEDSUPPLY Qty: 1200 RF: 0 fluoxetine 10 mg capsule 10 mg PO QAM RF: 0 trazodone 50 mg tablet 25 mg PO BEDTIME RF: 0 ipratropium-albuterol 0.5 mg-3 mg(2.5 mg base)/3 mL solution for nebulization inhalation RF: 0 aspirin 81 mg tablet,delayed release (DR/EC) 81 mg PO BEDTIME RF: 0 metformin 500 mg tablet 500 mg PO BEDTIME RF: 0 sennosides 8.6 mg tablet 17.2 mg PO DAILY RF: 0 quetiapine 25 mg tablet 25 mg PO BEDTIME RF: 0 docusate sodium 100 mg capsule 100 mg PO BID RF: 0 Referrals: Cash Arevalo MD [Primary Care Provider] - 2 days
[2020-12-03 19:27] VITALS: PULSE 83; O2SAT 96
[2020-12-03] MEDS: Albuterol/Iprat 2.5/0.5MG 3 ML AMPUL.NEB INHALE (19:27)
[2020-12-03] MEDS: Albuterol Sulfate (0.083%) 2.5 MG/3 ML VIAL.NEB 5 MG INHALE (19:27)
[2020-12-03 19:31] LABS: MANUAL DIFF FLAG NO
[2020-12-03] MEDS: Magnesium Sulfate/H2O 2 GM/50 ML PIGGYBACK IV (19:34)
[2020-12-03] MEDS: methylPREDNISolone Sod Succ 125 MG/2 ML VIAL IVPUSH (19:35)
[2020-12-03 19:36] LABS: Basophils Percent Auto 0.1 % (0-2); Eosinophils Percent Auto 0.1 % (0-4); Hematocrit 36.4 % (37-47); Hemoglobin 11.7 g/dl (12.0-16.0); Imm Gran Abs Auto 0.05 X10*3/uL (0.00-0.03); Imm Gran Pct Auto 0.3 % (0.0-0.4); Lymphocytes Absolute Auto 1.5 X10*3/uL (1.2-4.9); Lymphocytes Percent Auto 9.8 % (20-40); Mean Corpuscular HGB Conc 32.1 g/dl (31.0-35.0); Mean Corpuscular Volume 90.1 fL (80-98); Mean Platelet Volume 11.4 fL (9.4-12.3); Monocytes Absolute Auto 0.4 X10*3/uL (0.1-1.2); Monocytes Percent Auto 2.7 % (2-11); Neutrophils Absolute Auto 12.9 X10*3/uL (2.0-8.3); Platelet Count 269 X10*3/uL (160-400); Red Blood Count 4.04 X10*6/uL (4.20-5.50); Red Cell Distribution Width 12.5 % (11.0-16.0); White Blood Count 14.9 X10*3/uL (4.8-10.8)
[2020-12-03 19:47] LABS: Anion Gap 14 (12-20); Blood Urea Nitrogen 21 mg/dL (9-16); Calcium 9.3 mg/dL (8.4-10.2); Carbon Dioxide 25 mmol/L (22-29); Chloride 107 mmol/L (96-108); Creatinine Clr Calc Pharmacy 42.5; Estimated Glomerular Filt Rate 55; Glucose Random 210 mg/dL (60-115); Lipase 65 U/L (8-78); Potassium 4.6 mmol/L (3.3-5.1); Sodium 141 mmol/L (135-145)
[2020-12-03 19:54] LABS: B Type Natriuretic Peptide 270 pg/mL (<100); Troponin-I High Sensitivity 7.3 ng/L (<3.5-17.0)
[2020-12-03 20:27] VITALS: BP 130/39; PULSE 92; RESP 21
[2020-12-03 21:01] LABS: Appearance Urine CLEAR; Color Urine YELLOW; Glucose Urine UA 100 MG/DL (NEG); Leukocyte Esterase Urine TRACE (NEG); Nitrite Urine NEG (NEG); Specific Gravity - Urine 1.015 (1.005-1.025); UACC Culture Trigger YES; Urine Blood NEG (NEG); Urine Ketones NEG (NEG); Urine Protein NEG (NEG-TRACE)
[2020-12-03 21:28] LABS: RBC Urine 0-2 /HPF (0); Squamous Epithelial Cell Urine TRACE /LPF
[2020-12-03 21:29] LABS: Bacteria Urine TRACE /LPF
[2020-12-03 21:38] LABS: Influenza A PCR NEGATIVE (Negative); Influenza B PCR NEGATIVE (Negative); Resp Syncy Virus RNA Qual PCR NEGATIVE (Negative); SARS COV2 PCR INHOUSE NEGATIVE (Negative)
[2020-12-03 21:57] VITALS: BP 145/69; PULSE 92; RESP 41; O2SAT 96
== END 2020-12-03 23:39 | disposition home or self-care (01) ==
PROVIDERS: Emergency Provider Emergency Medicine; PCP Internal Medicine
DX: J45.901 Unspecified asthma with (acute) exacerbation (principal); R06.02 Shortness of breath; Z79.899 Other long term (current) drug therapy; Z20.822 Contact with and (suspected) exposure to COVID-19
CPT/HCPCS: 0241U; 36415; 71045; 80048; 81001; 81003; 83690; 83880; 84484; 85025; 87086; 93005; 94640; 94644; 96365; 96366; 96375; 99284; J2930; J3475

== ENCOUNTER → 2020-12-07 11:05 | Outpatient (BNVA) | payer MEDICARE, SELFPAY | PROVIDERS: PCP Internal Medicine; Visit Provider Internal Medicine | DX: J44.1 Chronic obstructive pulmonary disease with (acute) exacerbation (principal); J30.9 Allergic rhinitis, unspecified | CPT/HCPCS: 99212 ==

== ENCOUNTER → 2020-12-20 10:58 | Outpatient (BNVA) | payer MEDICARE, SELFPAY | PROVIDERS: PCP Internal Medicine; Visit Provider Internal Medicine | DX: J30.9 Allergic rhinitis, unspecified (principal); J44.1 Chronic obstructive pulmonary disease with (acute) exacerbation; R05.9 Cough, unspecified | CPT/HCPCS: 99212 ==

== ENCOUNTER → 2021-03-07 13:50 | Outpatient (BNVA) | payer MEDICARE, SELFPAY | PROVIDERS: PCP Internal Medicine; Visit Provider Internal Medicine | DX: J44.9 Chronic obstructive pulmonary disease, unspecified (principal); J45.909 Unspecified asthma, uncomplicated; R05.9 Cough, unspecified | CPT/HCPCS: 99212 ==

== ENCOUNTER 2021-04-18 | Outpatient (REF) | payer MEDICARE, SELFPAY | END 2021-04-18 00:01 | LOC: CF | PROVIDERS: PCP Internal Medicine; Visit Provider Internal Medicine | DX: J44.9 Chronic obstructive pulmonary disease, unspecified (principal); R05.9 Cough, unspecified; J45.909 Unspecified asthma, uncomplicated | CPT/HCPCS: 99212 ==

== ENCOUNTER 2021-07-14 10:39 | Inpatient (IN) | payer MEDICARE, SELFPAY ==
[2021-07-14] VITALS (11 sets, daily range): BP systolic 127–180; BP diastolic 52–84; PULSE 59–84; RESP 14–24; TEMP 36.3–37.1; O2SAT 95–99; BMI 42.7
--- NOTE | ~2021-07-14 | CT_ITS ---
EXAMINATION: CT HEAD WITHOUT CONTRAST (STROKE PROTOCOL) CLINICAL INFORMATION: Stroke protocol. Dizziness and weakness. COMPARISON: None TECHNIQUE: Contiguous axial imaging was performed from the skull base to vertex without intravenous administration of contrast. This CT examination was performed using dose optimization techniques as appropriate, variously including the following: *Automated exposure control *Adjustment of mA and/or kV according to patient size (this includes techniques or standardized protocols for targeted exams where dose is matched to indication/reason for exam; i.e. extremities or head) *Use of iterative reconstruction technique DLP: 525 mGy-cm FINDINGS: There is no intracranial hemorrhage, hematoma, or extra-axial fluid collection. 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 The lateral ventricles are symmetrical but enlarged with mild periventricular hypodensity in both cerebral hemispheres but no mass effect or edema. The garcia-white matter differentiation appears symmetric. There is no acute infarct or mass lesion. The calvarium appears intact. There is no pneumocephalus or orbital emphysema. The visualized sinuses and middle ears and mastoid air cells show no significant mucosal thickening. There are no air-fluid levels. CT/CT head for stroke IMPRESSION: No acute intracranial process seen. No major change from the last CT exam 07/17/2018. This critical result was discussed with Quinn Franks at 11:48 A.M on 07/14/2021. It was ascertained that the content and urgency of the report was understood at the time of direct communication.
--- NOTE | ~2021-07-14 | MR_ITS ---
EXAMINATION: MR BRAIN WITHOUT CONTRAST CLINICAL INFORMATION: Dizziness. Slurred speech. Stroke. COMPARISON: CT head from 07/14/2021. TECHNIQUE: MRI of the brain was obtained using routine sequences without contrast. FINDINGS: No focal restricted diffusion is demonstrated to suggest acute or subacute cerebral ischemia. No evidence of acute hemorrhagic products on heme-sensitive imaging. Chronic cystic encephalomalacia of the parasagittal aspect of the right occipital lobe with mild hemosiderin staining. Scattered periventricular, deep white matter, and brainstem T2 FLAIR hyperintensities consistent with moderate underlying microangiopathy. Proportional prominence of the ventricles and sulcal spaces without evidence of obstructive hydrocephalus. No abnormal mass effect. No midline shift. The sella turcica is mildly expanded with flattening of the pituitary gland. Normal positioning of the cerebellar tonsils. Normal arterial and venous vascular flow voids are present. Normal, homogeneous marrow signal. Mild mucosal thickening of the paranasal sinuses. Atelectasis of the bilateral maxillary sinuses. No signal abnormalities within the mastoids. Bilateral lens extractions. MR/MR head/brain wo con IMPRESSION: 1. No acute intracranial abnormalities. 2. Chronic encephalomalacia of the right occipital lobe. Moderate underlying microangiopathy and generalized cerebral volume loss.
--- NOTE | ~2021-07-14 | XR_ITS ---
EXAMINATION: XR CHEST CLINICAL INFORMATION: Shortness of breath COMPARISON: December 03, 2020 TECHNIQUE: AP portable view of the chest was obtained. FINDINGS: The cardiopericardial silhouette is enlarged. Status post median sternotomy and CABG. No pneumothorax or significant pleural effusion identified. No confluent parenchymal disease is identified. No evidence of pulmonary edema. XR/XR chest 1V IMPRESSION: Cardiomegaly without significant acute disease identified.
--- NOTE | 2021-07-14 10:59 | ED.NAVMDI ---
HPI - Nausea/Vomiting/Diarrhea General Chief complaint: Nausea/Vomiting/Diarrhea Stated complaint: NAUSEA NAD VOMITING ALL MORNING Time Seen by Provider: 07/14/21 10:59 Source: patient and family Mode of arrival: EMS Limitations: no limitations History of Present Illness HPI Narrative: 75-year-old female past medical history significant for obesity, asthma, COPD , diabetes, hypertension presenting to the emergency department with sudden onset dizziness, nausea, vomiting and dizziness equilibrium at approximately 8/830 this morning. According to patient she describes the dizziness as the room spinning, she tells me she is usually able to ambulate with a walker however today she is falling over to the sides. She reports nausea and vomiting that is worse with movement and worse with positional changes. According to family member patient has appeared weak, and she has noticed some changes in speech since this morning. Family member tells me patient is usually able to ambulate steadily with out any difficulties and she is not usually falling over to the side however today patient was falling over to the side. Family also reports that patient's voice appears to be slightly mumbled. According to family members patient was fine last night in all the symptoms started this morning. Patient is Taking 81 mg baby aspirin daily. She denies chest pain, shortness of breath, vision changes, neck pain, abdominal pain , fevers and chills. At this time a stroke alert has been initiated. MD elicited complaint: nausea and vomiting Associated nausea: Yes Associated abdominal pain: No Location of pain: none Pain consistency: constant Associated symptoms: other ( dizziness) Related Data Home Medications Medication Instructions Recorded Confirmed atorvastatin 40 mg tablet mg PO 12/17/19 03/07/21 blood sugar diagnostic #10 ea 12/17/19 03/07/21 calcium carbonate 600 mg-vitamin 1 tab PO QAM 12/17/19 03/07/21 D3 10 mcg (400 unit) tablet carvedilol 3.125 mg tablet 3.125 mg PO BID 12/17/19 03/07/21 donepezil 10 mg tablet 10 mg PO BEDTIME 12/17/19 03/07/21 fluoxetine 10 mg capsule 10 mg PO QAM 12/17/19 03/07/21 fluticasone propionate 50 2 spray INTRANASAL DAILY 12/17/19 03/07/21 mcg/actuation nasal spray,suspension furosemide 20 mg tablet 20 mg PO QAM 12/17/19 03/07/21 gabapentin 300 mg capsule 300 mg PO BEDTIME 12/17/19 03/07/21 hydralazine 50 mg tablet 50 mg PO BID 12/17/19 03/07/21 insulin glargine 100 unit/mL (3 12 unit SUBCUT BEDTIME 12/17/19 03/07/21 mL) subcutaneous pen lancets 33 gauge #100 ea 12/17/19 losartan 25 mg tablet 25 mg PO DAILY 12/17/19 pen needle, diabetic 31 gauge x #1200 ea 12/17/1908/01 trazodone 50 mg tablet 25 mg PO BEDTIME 12/17/19 aspirin 81 mg tablet,delayed 81 mg PO BEDTIME 01/07/20 03/07/21 release docusate sodium 100 mg capsule 100 mg PO BID 01/07/20 03/07/21 ipratropium 0.5 mg-albuterol 3 mg ml INHALATION 01/07/20 03/07/21 (2.5 mg base)/3 mL nebulization soln metformin 500 mg tablet 500 mg PO BEDTIME 01/07/20 quetiapine 25 mg tablet 25 mg PO BEDTIME 01/07/20 sennosides 8.6 mg tablet 17.2 mg PO DAILY 01/07/20 Previous Rx's Medication Instructions Recorded albuterol sulfate 90 mcg/actuation 1 inh INHALATION QID PRN #8.5 g 12/03/20 aerosol inhaler (ProAir HFA) cefuroxime axetil 500 mg tablet 500 mg PO BID 7 Days #14 tab 12/07/20 Incruse Ellipta 62.5 mcg/actuation 1 inh INHALATION DAILY #30 ea NS 05/31/21 powder for inhalation (umeclidinium) fluticasone 500 mcg-salmeterol 50 1 ea PO BID #60 ea 05/31/21 mcg/dose blistr powdr for inhalation Allergies Allergy/AdvReac Type Severity Reaction Status Date / Time No Known Allergies Allergy Verified 04/18/21 14:39 [No Known Allergies*] Review of Systems Review of Systems: Constitutional : No Weight loss, No Fever, No Chills, No Fatigue, No Malaise ENT/Mouth : No sore throat, No Rhinorrhea Eyes: No Eye Pain, No Swelling, No Redness Cardiovascular : No Chest Pain, No SOB, No Dyspnea on Exertion, No Orthopnea, No Edema, No Palpitations Respiratory : No Cough, No Sputum, No Wheezing Gastrointestinal : + Nausea, + Vomiting, No Diarrhea, No Constipation, No abdominal Pain, No Hematochezia, No Melena Genitourinary : No Dysuria, No Urinary Frequency, No Hematuria, Musculoskeletal : No joint pain, No Myalgias, No Joint Swelling Skin : No Skin Lesions, No rash Neuro : + Weakness, No Numbness, + Dizziness, No Headache All other systems reviewed and are negative Yes all other systems are reviewed and are negative Gastrointestinal: Gastrointestinal: Reports nausea PMFSH Past Medical History Attestation statement: The following information was validated with the patient. Source: old records reviewed and nursing notes reviewed Medical History Allergic rhinitis Asthma Asthma COPD (chronic obstructive pulmonary disease) COPD exacerbation Cough Diabetes Hypertension Social History Social History Alcohol intake: never Advance Directives: No Advance Directives Information Provided: Yes Physical Exam Vital Signs: Vital Signs: Last Vital Signs Temp 97.4 F 07/14/21 14:32 Pulse 75 07/14/21 14:32 Resp 24 H 07/14/21 14:32 BP 148/76 H 07/14/21 14:32 Pulse Ox 97 07/14/21 14:32 BMI result Body Mass Index 42.7 VSS Appearance: Alert.? Oriented X3.? No acute distress.? Mild aphasia noted. Head: Normocephalic, atraumatic, no step-offs or deformities Eyes: Pupils equal, round and reactive to light.? ENT: Pharynx normal.? Neck: Normal inspection.? Neck supple.? CVS: Normal heart rate and rhythm.? Pulses normal.? Respiratory: No respiratory distress.? Breath sounds normal.? Abdomen: Soft and nontender.? Skin: Skin warm and dry.? Normal skin color.? Normal skin turgor.? Extremities: No lower extremity edema.? No calf ttp. Global weakness worse on the right side. Back: No midline tenderness, no C-spine tenderness, full range of motion, no CVA tenderness bilaterally Neuro: Oriented X 3.? No motor deficit.? No sensory deficit. CN 2-12 intact . + Slight drift to the right upper extremity. Slightly abnormal [id number]. Patient unable to ambulate due to dizziness at this time. Course Reevaluation(s) Reevaluation #1: Unclear of the time frame last known well last night at midnight. Will wait on MRI as patient is extremely nauseous and unable to tolerate at this time. Neurology will consult this patient as patient will likely be admitted. Time: 12:17 Reevaluation #2: Patient tells me her dizziness has slightly improved at rest. However she is still experiencing it with movement. At this time patient will be admitted to the hospitalist team. Time: 16:10 MDM - Nausea/Vomiting/Diarrhea MDM Narrative Medical decision making narrative: 1104 75-year-old female presents with Sudden onset nausea, vomiting, dizziness, disequilibrium and weakness since 08:00/ 0830this morning. Denies sick contacts. NIH stroke scale of 2, [id number] aphasia and some drift to the right hand. Upon physical examination there is global weakness noted however there is notable weakness to the right upper extremity. Mild aphasia is noted with patient's speech. Face is symmetric. Two point extinction intact. Slightly altered [id number]. Patient unable to ambulate due to dizziness. Patient reports dizziness with positional changes. Regular rate and rhythm. Lungs clear. Abdomen soft nontender nondistended. No meningeal signs. Plan at this time is MRI head and brain without contrast, CT of the head and brain, PT INR, point of care,basic labs, fluids, Zofran, urine. Based off patient history and physical examination I do not suspect acute abdomen, appendicitis, cholecystitis or pancreatitis. Will rule out posterior infarct as patient has cerebellar function appears to be affected and patient is having changes in speech per family and patient. Will also rule out stroke ICH. Immediately upon my examination of patient a stroke protocol was initiated Medical Records Attestation: I reviewed the patient's medical records. Lab Data Attestation: I reviewed the patient's lab results. Result diagrams: 07/14/21 11:25 07/14/21 11:25 Labs: Lab Results 07/14/21 07/14/21 07/14/21 Range/Units 11:25 11:25 11:25 WBC 13.8 H (4.8-10.8) X10*3/uL RBC 3.99 L (4.20-5.50) X10*6/uL Hgb 11.4 L (12.0-16.0) g/dl Hct 35.9 L (37.0-47.0) % MCV 90.0 (80.0-98.0) fL MCH 28.6 (27.0-33.0) pg MCHC 31.8 (31.0-35.0) g/dl RDW 12.8 (11.0-16.0) % Plt Count 292 (160-400) X10*3/uL MPV 11.1 (9.4-12.3) fL Immature Gran % (Auto) 0.3 (0.0-0.4) % Neut % (Auto) 77.9 H (45-73) % Lymph % (Auto) 13.6 L (20-40) % [place] % (Auto) 8.0 (2-11) % Eos % (Auto) 0.0 (0-4) % Baso % (Auto) 0.2 (0-2) % Lymph # (Auto) 1.9 (1.2-4.9) X10*3/uL [place] # (Auto) 1.1 (0.1-1.2) X10*3/uL Eos # (Auto) 0.0 (0.0-0.4) X10*3/uL Baso # (Auto) 0.0 (0.0-0.2) X10*3/uL Abs Immat Gran (auto) 0.04 H (0.00-0.03) X10*3/uL Absolute Neuts (auto) 10.8 H (2.0-8.3) x10*3/uL Absolute Nucleated RBC 0.000 (0.0-0.012) X10*3/uL Nucleated RBC % (auto) 0.0 (0.0-0.2) /100WBC PT (9.9-13.0) SEC INR (0.9-1.1) Sodium 139 (135-145) mmol/L Potassium 4.6 (3.3-5.1) mmol/L Chloride 105 (96-108) mmol/L Carbon Dioxide 25 (22-29) mmol/L Anion Gap 14 (12-20) BUN 19 H (9-16) mg/dL Creatinine 1.04 (0.5-1.4) mg/dL Estim Creat Clear Calc 26.6 Estimated GFR 52 POC Glucose (60-115) mg/dL Random Glucose 334 H (60-115) mg/dL Calcium 9.2 (8.4-10.2) mg/dL Magnesium 2.1 (1.6-2.6) mg/dL Total Bilirubin 0.4 (0.0-1.0) mg/dL AST 16 (5-31) U/L ALT 14 (0-31) U/L Alkaline Phosphatase 94 (39-117) U/L B-Natriuretic Peptide (<100) pg/mL Total Protein 7.2 (6.5-8.0) g/dL Albumin 3.9 (3.5-5.0) g/dL Lipase 34 (8-78) U/L Urine Color Urine Appearance Urine pH (5.0-8.0) Ur Specific [place] (1.005-1.025) Urine Protein (NEG-TRACE) MG/DL Urine Glucose (UA) (NEG) MG/DL Urine Ketones (NEG) MG/DL Urine Blood (NEG) Urine Nitrite (NEG) Ur Leukocyte Esterase (NEG) Urine RBC (0) /HPF Urine WBC (0-4) /HPF Ur Squamous Epith Cells /LPF Urine Bacteria /LPF Hyaline Casts /LPF Urine Mucus /LPF COVID-19 ([facility]) Negative (Negative) COVID-19 Clin Com See Note 07/14/21 07/14/21 07/14/21 Range/Units 11:25 11:25 11:28 WBC (4.8-10.8) X10*3/uL RBC (4.20-5.50) X10*6/uL Hgb (12.0-16.0) g/dl Hct (37.0-47.0) % MCV (80.0-98.0) fL MCH (27.0-33.0) pg MCHC (31.0-35.0) g/dl RDW (11.0-16.0) % Plt Count (160-400) X10*3/uL MPV (9.4-12.3) fL Immature Gran % (Auto) (0.0-0.4) % Neut % (Auto) (45-73) % Lymph % (Auto) (20-40) % [place] % (Auto) (2-11) % Eos % (Auto) (0-4) % Baso % (Auto) (0-2) % Lymph # (Auto) (1.2-4.9) X10*3/uL [place] # (Auto) (0.1-1.2) X10*3/uL Eos # (Auto) (0.0-0.4) X10*3/uL Baso # (Auto) (0.0-0.2) X10*3/uL Abs Immat Gran (auto) (0.00-0.03) X10*3/uL Absolute Neuts (auto) (2.0-8.3) x10*3/uL Absolute Nucleated RBC (0.0-0.012) X10*3/uL Nucleated RBC % (auto) (0.0-0.2) /100WBC PT 11.7 (9.9-13.0) SEC INR 1.0 (0.9-1.1) Sodium (135-145) mmol/L Potassium (3.3-5.1) mmol/L Chloride (96-108) mmol/L Carbon Dioxide (22-29) mmol/L Anion Gap (12-20) BUN (9-16) mg/dL Creatinine (0.5-1.4) mg/dL Estim Creat Clear Calc Estimated GFR POC Glucose 294 H (60-115) mg/dL Random Glucose (60-115) mg/dL Calcium (8.4-10.2) mg/dL Magnesium (1.6-2.6) mg/dL Total Bilirubin (0.0-1.0) mg/dL AST (5-31) U/L ALT (0-31) U/L Alkaline Phosphatase (39-117) U/L B-Natriuretic Peptide 164 H (<100) pg/mL Total Protein (6.5-8.0) g/dL Albumin (3.5-5.0) g/dL Lipase (8-78) U/L Urine Color Urine Appearance Urine pH (5.0-8.0) Ur Specific [place] (1.005-1.025) Urine Protein (NEG-TRACE) MG/DL Urine Glucose (UA) (NEG) MG/DL Urine Ketones (NEG) MG/DL Urine Blood (NEG) Urine Nitrite (NEG) Ur Leukocyte Esterase (NEG) Urine RBC (0) /HPF Urine WBC (0-4) /HPF Ur Squamous Epith Cells /LPF Urine Bacteria /LPF Hyaline Casts /LPF Urine Mucus /LPF COVID-19 ([facility]) (Negative) COVID-19 Clin Com 07/14/21 Range/Units 14:34 WBC (4.8-10.8) X10*3/uL RBC (4.20-5.50) X10*6/uL Hgb (12.0-16.0) g/dl Hct (37.0-47.0) % MCV (80.0-98.0) fL MCH (27.0-33.0) pg MCHC (31.0-35.0) g/dl RDW (11.0-16.0) % Plt Count (160-400) X10*3/uL MPV (9.4-12.3) fL Immature Gran % (Auto) (0.0-0.4) % Neut % (Auto) (45-73) % Lymph % (Auto) (20-40) % [place] % (Auto) (2-11) % Eos % (Auto) (0-4) % Baso % (Auto) (0-2) % Lymph # (Auto) (1.2-4.9) X10*3/uL [place] # (Auto) (0.1-1.2) X10*3/uL Eos # (Auto) (0.0-0.4) X10*3/uL Baso # (Auto) (0.0-0.2) X10*3/uL Abs Immat Gran (auto) (0.00-0.03) X10*3/uL Absolute Neuts (auto) (2.0-8.3) x10*3/uL Absolute Nucleated RBC (0.0-0.012) X10*3/uL Nucleated RBC % (auto) (0.0-0.2) /100WBC PT (9.9-13.0) SEC INR (0.9-1.1) Sodium (135-145) mmol/L Potassium (3.3-5.1) mmol/L Chloride (96-108) mmol/L Carbon Dioxide (22-29) mmol/L Anion Gap (12-20) BUN (9-16) mg/dL Creatinine (0.5-1.4) mg/dL Estim Creat Clear Calc Estimated GFR POC Glucose (60-115) mg/dL Random Glucose (60-115) mg/dL Calcium (8.4-10.2) mg/dL Magnesium (1.6-2.6) mg/dL Total Bilirubin (0.0-1.0) mg/dL AST (5-31) U/L ALT (0-31) U/L Alkaline Phosphatase (39-117) U/L B-Natriuretic Peptide (<100) pg/mL Total Protein (6.5-8.0) g/dL Albumin (3.5-5.0) g/dL Lipase (8-78) U/L Urine Color YELLOW Urine Appearance CLEAR Urine pH 6.5 (5.0-8.0) Ur Specific [place] 1.010 (1.005-1.025) Urine Protein NEG (NEG-TRACE) MG/DL Urine Glucose (UA) >=1000 H (NEG) MG/DL Urine Ketones NEG (NEG) MG/DL Urine Blood NEG (NEG) Urine Nitrite NEG (NEG) Ur Leukocyte Esterase NEG (NEG) Urine RBC 0-2 (0) /HPF Urine WBC 0-2 (0-4) /HPF Ur Squamous Epith Cells TRACE /LPF Urine Bacteria NONE /LPF Hyaline Casts 0-2 /LPF Urine Mucus TRACE /LPF COVID-19 ([facility]) (Negative) COVID-19 Clin Com Critical Care Time Critical Care Time Critical Care Time: No Discharge Plan Discharge Clinical Impression: Nausea & vomiting, Dizziness, Weakness Patient Disposition: Admitted As Inpatient Prescriptions: No Action Incruse Ellipta 62.5 mcg/actuation blister with device 1 inh inhalation DAILY Qty: 30 5RF fluticasone propion-salmeterol 500-50 mcg/dose blister with device 1 ea PO BID Qty: 60 5RF albuterol sulfate [ProAir HFA] 90 mcg/actuation HFA aerosol inhaler 1 inh inhalation QID PRN (Reason: shortness of breath or wheezing) Qty: 8.5 0RF cefuroxime axetil 500 mg tablet 500 mg PO BID 7 Days Qty: 14 0RF (DME) lancets 33 gauge misc See Rx Instructions ea Not Applicable TID Qty: 100 0RF Rx Instructions: As directed calcium carbonate-vitamin D3 600 mg(1,500mg) -400 unit tablet 1 tab PO QAM 0RF fluticasone propionate 50 mcg/actuation spray,suspension 2 spray intranasal DAILY 0RF furosemide 20 mg tablet 20 mg PO QAM 0RF hydralazine 50 mg tablet 50 mg PO BID 0RF gabapentin 300 mg capsule 300 mg PO BEDTIME 0RF losartan 25 mg tablet 25 mg PO DAILY 0RF carvedilol 3.125 mg tablet 3.125 mg PO BID 0RF (DME) FreeStyle Lite Strips Strip See Rx Instructions ea Not Applicable TID Qty: 10 0RF Rx Instructions: As directed donepezil 10 mg tablet 10 mg PO BEDTIME 0RF atorvastatin 40 mg tablet PO 0RF Lantus Solostar U-100 Insulin 100 unit/mL (3 mL) insulin pen 12 unit subcut BEDTIME 0RF (DME) pen needle, diabetic 31 gauge x 5/16 needle See Rx Instructions ea .ROUTE .MEDSUPPLY Qty: 1200 0RF Rx Instructions: As directed fluoxetine 10 mg capsule 10 mg PO QAM 0RF trazodone 50 mg tablet 25 mg PO BEDTIME 0RF ipratropium-albuterol 0.5 mg-3 mg(2.5 mg base)/3 mL solution for nebulization inhalation 0RF aspirin 81 mg tablet,delayed release (DR/EC) 81 mg PO BEDTIME 0RF metformin 500 mg tablet 500 mg PO BEDTIME 0RF sennosides 8.6 mg tablet 17.2 mg PO DAILY 0RF quetiapine 25 mg tablet 25 mg PO BEDTIME 0RF docusate sodium 100 mg capsule 100 mg PO BID 0RF
[2021-07-14 11:31] LABS: Glucose, Whole Blood 294 mg/dL (60-115)
--- NOTE | 2021-07-14 11:34 | PC.NURSE ---
Iv inserted blood and poc obtained. MRI screening form completed with supportability engineer and family member. Pt brought to CT at this time.
[2021-07-14 11:47] LABS: Basophils Percent Auto 0.2 % (0-2); Hematocrit 35.9 % (37.0-47.0); Hemoglobin 11.4 g/dl (12.0-16.0); Imm Gran Abs Auto 0.04 X10*3/uL (0.00-0.03); Imm Gran Pct Auto 0.3 % (0.0-0.4); Lymphocytes Absolute Auto 1.9 X10*3/uL (1.2-4.9); Lymphocytes Percent Auto 13.6 % (20-40); MANUAL DIFF FLAG NO; Mean Corpuscular HGB Conc 31.8 g/dl (31.0-35.0); Mean Corpuscular Hemoglobin 28.6 pg (27.0-33.0); Mean Platelet Volume 11.1 fL (9.4-12.3); Monocytes Absolute Auto 1.1 X10*3/uL (0.1-1.2); Neutrophils Absolute Auto 10.8 x10*3/uL (2.0-8.3); Neutrophils Percent Auto 77.9 % (45-73); Platelet Count 292 X10*3/uL (160-400); Prothrombin Time 11.7 SEC (9.9-13.0); Red Blood Count 3.99 X10*6/uL (4.20-5.50); Red Cell Distribution Width 12.8 % (11.0-16.0); White Blood Count 13.8 X10*3/uL (4.8-10.8)
[2021-07-14 11:55] LABS: COVID-19 Test Negative (Negative)
[2021-07-14] MEDS: 0.9 % Sodium Chloride 1,000 ML 999 ML IV (12:05)
[2021-07-14] MEDS: ondansetron HCL 4 MG/2 ML VIAL IVPUSH (12:06)
[2021-07-14 12:10] LABS: Alanine Aminotransferase 14 U/L (0-31); Albumin Level 3.9 g/dL (3.5-5.0); Alkaline Phosphatase 94 U/L (39-117); Anion Gap 14 (12-20); Aspartate Amino Transferase 16 U/L (5-31); Bilirubin Total 0.4 mg/dL (0.0-1.0); Blood Urea Nitrogen 19 mg/dL (9-16); Calcium 9.2 mg/dL (8.4-10.2); Carbon Dioxide 25 mmol/L (22-29); Chloride 105 mmol/L (96-108); Creatinine Clr Calc Pharmacy 26.6; Estimated Glomerular Filt Rate 52; Glucose Random 334 mg/dL (60-115); Lipase 34 U/L (8-78); Magnesium 2.1 mg/dL (1.6-2.6); Potassium 4.6 mmol/L (3.3-5.1); Sodium 139 mmol/L (135-145); Total Protein 7.2 g/dL (6.5-8.0)
[2021-07-14 12:20] LABS: B Type Natriuretic Peptide 164 pg/mL (<100)
--- NOTE | 2021-07-14 12:31 | MHC.STROKE ---
EMS PRE-NOTIFIED AT 1035 N/V, DIZZY. NO STROKE ALERT. ARRIVED AT 1039. NOTIFIED OF ACTIVATION OF STROKE PROTOCOL BY PA. 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 TODAY SHE PRESENTS WITH N/V, DIZZINESS WHEN SHE CLOSES HER EYES. SHE HAS A HARD TIME LYING FLAT. LKW 07/14/21 0000 MIDNIGHT, WOKE AROUND 0800 AND C/O THESE SYMPTOMS. FINGER TO NOSE OK. OVERALL WEAKNESS AND SHE WAS UNABLE TO HELP HERSELF SIT ON THE EDGE OF THE BED OR AMBULATE. STILL C/O DIZZINESS NIHSS = 0, EXCLUDED FROM TPA-ALTEPLASE BASED ON LKW TIME. SHE IS UNABLE TO LAY FLAT FOR MRI, SPOKE WITH DR. RODRIGUEZ AND I GAVE HIM THE ABOVE FINDINGS AND THE MRI CAN WAIT. SHE DID TOLERATE THE CT HEAD BUT IT WAS DIFFICULT FOR HER TO STAY SUPINE. 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 CAME TO [facility] IN 2012. CAD, CHF, COPD, ASTHMA,JAYY, CPAP AT HOME (FOLLOWED BY DR PARRA), HTN, HLD, DM, DEMENTIA, NEUROPATHY, TARDIVE DYSKINESIA, OBESITY. SHE PASSED BEDSIDE SWALLOW SCREEN AND FOLLOWED INSTRUCTIONS. I PROVIDED STROKE EDUCATION TO HER GRANDDAUGHTER AND THE PATIENT. WE REVIEWED THE PLAN OF CARE. THE GRANDDAUGHTER SAID SHE MAY BE RELUCTANT TO STAY IN THE HOSPITAL AND MAY NEED SOMEONE TO STAY WITH HER. I WILL CONTINUE TO FOLLOW.
[2021-07-14] MEDS: Meclizine HCl 25 MG TABLET PO (13:04)
[2021-07-14] MEDS: Insulin Lispro 100 UNIT/ML 3 ML VIAL SUBCUT ×2 (13:05→21:25)
--- NOTE | 2021-07-14 13:31 | PC.NURSE ---
VSS pt appears comfortable at this time
--- NOTE | 2021-07-14 14:32 | PC.NURSE ---
Straight cath performed for urine sample
[2021-07-14 14:49] LABS: Appearance Urine CLEAR; Color Urine YELLOW; Glucose Urine UA >=1000 MG/DL (NEG); Leukocyte Esterase Urine NEG (NEG); Nitrite Urine NEG (NEG); PH 6.5 (5.0-8.0); Urine Blood NEG (NEG); Urine Ketones NEG (NEG); Urine Protein NEG (NEG-TRACE)
[2021-07-14 15:13] LABS: Hyaline Casts Urine 0-2 /LPF; Mucus Urine TRACE /LPF; RBC Urine 0-2 /HPF (0); Squamous Epithelial Cell Urine TRACE /LPF; WBC Urine 0-2 /HPF (0-4)
--- NOTE | 2021-07-14 15:38 | ECG_ITS ---
Test Reason : NAUSEA/ VOMITING Blood Pressure : / mmHG Vent. Rate : 106 BPM Atrial Rate : 106 BPM P-R Int : 192 ms QRS Dur : 094 ms QT Int : 358 ms P-R-T Axes : 000 041 248 degrees QTc Int : [address] & T wave abnormality, consider inferolateral ischemia Abnormal ECG When compared with ECG of 03-DEC-2020 19:20, Premature ventricular complexes are no longer Present Inverted T waves have replaced nonspecific T wave abnormality in Inferior leads Inverted T waves have replaced nonspecific T wave abnormality in Lateral leads QT has lengthened Referred By: Quinn Franks Electronically Signed By:LAURA BROWN
[2021-07-14] MEDS: Albuterol/Iprat 2.5/0.5MG 3 ML AMPUL.NEB INHALE ×2 (16:43→19:31)
--- NOTE | 2021-07-14 17:05 | P.HPHOSP_ITS ---
History of Present Illness Date of Service: 07/14/21 Attending physician on admission: [facility] Chief Complaint: dizziness this is a 75-year-old Citizen [place]-speaking female who presents to the emergency department with dizziness. History was obtained with the use of a data software engineer. Patient was feeling okay yesterday and denies any dizziness. She went to bed around 02:00 and when she woke up at 08:00 this morning she immediately felt dizzy. Her dizziness felt like the room spinning. It was made worse with movement and improved with rest. She had associated laxmi sea and vomiting x1. She also reported slurred speech which has improved but has not resolved. She was unable to stand up due to the severity of her dizziness as well as weakness in bilateral lower extremities. She was brought to the emergency department for evaluation. Initially she received a dose of meclizine. brain CT was negative for any acute intracranial abnormalities. her dizziness persisted the decision was made to admit her for further management. Given concern for stroke her case was discussed with neurologist but she was out of the window for tPA and she will be admitted for further workup. The patient states that she has had shortness of breath intermittently past 6-7 months. She does report feeling short of breath yesterday, she still has some shortness of breath however she reports that is improved today. She denies any associated fever or chills. She has had some dry cough. Chest x-ray showed no evidence of pneumonia. Review of Systems Review of Systems: Yes all other systems are reviewed and are negative Constitutional: Constitutional: Denies chills and Denies fever(s) Cardiovascular: Cardiovascular: Denies chest pain, Denies palpitations and Reports dyspnea Respiratory: Respiratory: Reports cough and Reports dyspnea Gastrointestinal: Gastrointestinal: Denies abdominal pain, Reports nausea and Reports vomiting Neurologic: Reports Abnormal speech present Endocrine: Endocrine: Denies palpitations [facility] Medical History (Updated 07/14/21 @ 17:10 by JESS Tapia) Allergic rhinitis Asthma Asthma CAD (coronary artery disease) COPD (chronic obstructive pulmonary disease) COPD exacerbation Cough Diabetes Hypertension Functional capacity: uses cane/walker Pertinent family history: + for HTN Surgical History (Updated 07/14/21 @ 17:10 by JESS Tapia) History of hysterectomy Hx of CABG Social History (Updated 07/14/21 @ 17:10 by JESS Tapia) Alcohol intake: never Patient Tobacco Use Status: Never used Tobacco Use of substances other than those prescribed or required for medical reasons: No Advance Directives: No Advance Directives Information Provided: Yes Meds Allergies Allergy/AdvReac Type Severity Reaction Status Date / Time No Known Allergies Allergy Verified 04/18/21 14:39 [No Known Allergies*] Active Medications: Current Medications Acetaminophen (Acetaminophen 325 Mg Tablet) 650 mg PO Q6H PRN PRN Reason: Pain, Mild (Pain Scale 1-3) Albuterol Sulfate (Albuterol Sulfate 90 Mcg 8 Gm Inhaler) 1 puff INHALE QID PRN PRN Reason: shortness of breath or wheezing Albuterol/Ipratropium (Albuterol/Iprat 2.5/0.5mg 3 Ml Ampul.Neb) 3 ml INHALE RQ6H WHILE AWAKE [facility] Last Admin: 07/14/21 16:43 Dose: 3 ml Documented by: Aspirin (Aspirin Enteric Coated 81 Mg Tablet.Dr) 81 mg PO BEDTIME [facility] Atorvastatin Calcium (Atorvastatin Calcium 40 Mg Tablet) 40 mg PO BEDTIME [facility] Calcium Carbonate/Cholecalciferol (Calcium + Vitamin D 250 Mg Tablet) 500 mg PO DAILY [facility] Carvedilol (Carvedilol 3.125 Mg Tablet) 3.125 mg PO BID [facility]; Protocol Docusate Sodium (Docusate Sodium 100 Mg Capsule) 100 mg PO DAILY PRN PRN Reason: Constipation Docusate Sodium (Docusate Sodium 100 Mg Capsule) 100 mg PO BID [facility] Fluoxetine HCl (Fluoxetine Hcl 10 Mg Capsule) 10 mg PO DAILY [facility] Fluticasone Propionate (Fluticasone Propionate Nasal 16 Gm [place]) 2 spray NOSTRIL-B DAILY [facility] Fluticasone/Vilanterol (Fluticasone/Vilanterol 100/25 Blst.W.Dev) 1 puff INHALE RDAILY [facility] Furosemide (Furosemide 20 Mg Tablet) 20 mg PO DAILY [facility]; Protocol Gabapentin (Gabapentin 300 Mg Capsule) 300 mg PO BEDTIME [facility] Heparin Sodium (Porcine) (Heparin Sodium,Porcine 5,000 Unit/Ml Vial) 5,000 unit SUBCUT Q12H [facility] Ondansetron HCl (Ondansetron Hcl 4 Mg/2 Ml Vial) 4 mg IVPUSH Q8H PRN PRN Reason: Nausea and Vomiting Pharmacy Consult (Consult Rx Perform Med Rec) 1 each MISCELLANE ONCE PRN PRN Reason: Consult order Senna (Sennosides 8.6 Mg Tablet) 17.2 mg PO DAILY [facility] Sodium Chloride (0.9 % Sodium Chloride Flush 3 Ml Syringe) 3 ml IVFLUSH QSHIFT [facility] Tiotropium [place] (Tiotropium [place] 18 Mcg Cap.W.Dev) 1 puff INHALE RDAILY [facility] Home Medications Medication Instructions Recorded Confirmed Last Taken Type atorvastatin 40 mg tablet 40 mg PO BEDTIME 12/17/19 07/14/21 Unknown History blood sugar diagnostic #10 ea 12/17/19 03/07/21 Unknown History calcium carbonate 600 mg-vitamin 1 tab PO QAM 12/17/19 07/14/21 Unknown History D3 10 mcg (400 unit) tablet carvedilol 3.125 mg tablet 3.125 mg PO BID 12/17/19 07/14/21 Unknown History fluoxetine 10 mg capsule 10 mg PO QAM 12/17/19 07/14/21 Unknown History fluticasone propionate 50 2 spray INTRANASAL DAILY 12/17/19 07/14/21 Unknown History mcg/actuation nasal spray,suspension furosemide 20 mg tablet 20 mg PO QAM 12/17/19 07/14/21 Unknown History gabapentin 300 mg capsule 300 mg PO BEDTIME 12/17/19 07/14/21 Unknown History hydralazine 50 mg tablet 50 mg PO BID 12/17/19 07/14/21 Unknown History insulin glargine 100 unit/mL (3 10 unit SUBCUT BEDTIME 12/17/19 03/07/21 Unknown History mL) subcutaneous pen lancets 33 gauge #100 12/17/19 Unknown History losartan 25 mg tablet 25 mg PO DAILY 12/17/19 07/14/21 Unknown History pen needle, diabetic 31 gauge x #1200 12/17/19 Unknown History 5/16 aspirin 81 mg tablet,delayed 81 mg PO BEDTIME 01/07/20 07/14/21 Unknown History release docusate sodium 100 mg capsule 100 mg PO BID 01/07/20 07/14/21 Unknown History sennosides 8.6 mg tablet 17.2 mg PO DAILY 01/07/20 07/14/21 Unknown History fluticasone 500 mcg-salmeterol 50 1 inh PO BID 07/14/21 07/14/21 Unknown History mcg/dose blistr powdr for inhalation Physical Exam Vital Signs and Narrative: Vital Signs: Last Vital Signs Temp 97.4 F 07/14/21 14:32 Pulse 65 07/14/21 16:43 Resp 18 07/14/21 16:43 BP 157/84 H 07/14/21 16:11 Pulse Ox 99 07/14/21 16:11 BMI result Body Mass Index 42.7 Const: General: cooperative, alert and awake Nutritional Appearance: overweight Orientation/consciousness: patient oriented x3 HEENT: Other: repetitive tongue movements Eyes: Pupils: Equal, round and reactive pupils present EOM: EOMs intact bilaterally Resp: Other: diminished lung sounds, prolonged expiratory phase, scatterd wheezing Effort & Inspection: able to speak in complete sentences and Actively coughing Auscultation: diminished lung sounds Cardio: Rate: regular rate Heart sounds: S1 normal heart sound present and S2 normal heart sound present GI: Inspection: No distended Palpation (GI): Soft to palpation and nontender Neuro: General: patient oriented x3 and Unable to assess gait Cranial nerves: Yes Equal, round and reactive pupils present, Yes Bilaterally intact EOM present, Yes Nystagmus not present, Yes Normal facial strength present and Yes Midline tongue present Speech: Abnormal speech present slurred Gait exam (Neuro): Unable to assess gait Motor exam (neuro): Pronator motor function not present and no tremor noted Coordination: [id number] test normal and Normal rapid alternating movements of the distal upper extremity present (Neuro) (more clumsy on right side) Extrem: General: Yes no pedal edema Results Labs CBC and Chem 7: 07/14/21 11:25 07/14/21 11:25 Labs: Laboratory Results - last 24 hr 07/14/21 07/14/21 07/14/21 11:25 11:25 11:25 MCV 90.0 MCH 28.6 MCHC 31.8 RDW 12.8 Plt Count 292 MPV 11.1 Immature Gran % (Auto) 0.3 Neut % (Auto) 77.9 H Lymph % (Auto) 13.6 L Petroleum % (Auto) 8.0 Eos % (Auto) 0.0 Baso % (Auto) 0.2 Lymph # (Auto) 1.9 Petroleum # (Auto) 1.1 Eos # (Auto) 0.0 Baso # (Auto) 0.0 Abs Immat Gran (auto) 0.04 H Absolute Neuts (auto) 10.8 H Absolute Nucleated RBC 0.000 Nucleated RBC % (auto) 0.0 PT INR Anion Gap 14 Estim Creat Clear Calc 26.6 Estimated GFR 52 POC Glucose Random Glucose 334 H Calcium 9.2 Magnesium 2.1 Total Bilirubin 0.4 AST 16 ALT 14 Alkaline Phosphatase 94 B-Natriuretic Peptide Total Protein 7.2 Albumin 3.9 Lipase 34 Urine Color Urine Appearance Urine pH Ur Specific [place] Urine Protein Urine Glucose (UA) Urine Ketones Urine Blood Urine Nitrite Ur Leukocyte Esterase Urine RBC Urine WBC Ur Squamous Epith Cells Urine Bacteria Hyaline Casts Urine Mucus COVID-19 ([facility]) Negative COVID-19 Clin Com See Note 07/14/21 07/14/21 07/14/21 11:25 11:25 11:28 MCV MCH MCHC RDW Plt Count MPV Immature Gran % (Auto) Neut % (Auto) Lymph % (Auto) Petroleum % (Auto) Eos % (Auto) Baso % (Auto) Lymph # (Auto) Petroleum # (Auto) Eos # (Auto) Baso # (Auto) Abs Immat Gran (auto) Absolute Neuts (auto) Absolute Nucleated RBC Nucleated RBC % (auto) PT 11.7 INR 1.0 Anion Gap Estim Creat Clear Calc Estimated GFR POC Glucose 294 H Random Glucose Calcium Magnesium Total Bilirubin AST ALT Alkaline Phosphatase B-Natriuretic Peptide 164 H Total Protein Albumin Lipase Urine Color Urine Appearance Urine pH Ur Specific [place] Urine Protein Urine Glucose (UA) Urine Ketones Urine Blood Urine Nitrite Ur Leukocyte Esterase Urine RBC Urine WBC Ur Squamous Epith Cells Urine Bacteria Hyaline Casts Urine Mucus COVID-19 ([facility]) COVID-19 Clin Com 07/14/21 14:34 MCV MCH MCHC RDW Plt Count MPV Immature Gran % (Auto) Neut % (Auto) Lymph % (Auto) Petroleum % (Auto) Eos % (Auto) Baso % (Auto) Lymph # (Auto) Petroleum # (Auto) Eos # (Auto) Baso # (Auto) Abs Immat Gran (auto) Absolute Neuts (auto) Absolute Nucleated RBC Nucleated RBC % (auto) PT INR Anion Gap Estim Creat Clear Calc Estimated GFR POC Glucose Random Glucose Calcium Magnesium Total Bilirubin AST ALT Alkaline Phosphatase B-Natriuretic Peptide Total Protein Albumin Lipase Urine Color YELLOW Urine Appearance CLEAR Urine pH 6.5 Ur Specific [place] 1.010 Urine Protein NEG Urine Glucose (UA) >=1000 H Urine Ketones NEG Urine Blood NEG Urine Nitrite NEG Ur Leukocyte Esterase NEG Urine RBC 0-2 Urine WBC 0-2 Ur Squamous Epith Cells TRACE Urine Bacteria NONE Hyaline Casts 0-2 Urine Mucus TRACE COVID-19 ([facility]) COVID-19 Clin Com Imaging Radiologist's Impressions: Impressions Head CT 07/14/21 11:35 IMPRESSION: No acute intracranial process seen. No major change from the last CT exam 07/17/2018. This critical result was discussed with Quinn Franks at 11:48 A.M on 07/14/2021. It was ascertained that the content and urgency of the report was understood at the time of direct communication. Chest X-Ray 07/14/21 12:02 IMPRESSION: Cardiomegaly without significant acute disease identified. Assessment and Plan (1) Dizziness: Status: Acute Plan This is a 75-year-old Citizen [place]-speaking female with history of CAD s/p CABG, HTN, DM, COPD/asthma who presents to the ED with dizziness Dizziness associated with slurred speech concern for CVA, brain CT negative. Last known well time 2am, out of the window for TPA will admit to tele for close monitoring and neuro checks continue home ASA, statin will hold BP meds to allow for permissive HTN speech eval PT, OT eval neuro consult Asthma/COPD pt reports frequent sob, frequent treatment with steroids scheduled breathing treatments continue home inhalers twave inversions on EKG new compared to previous no chest pain echo will check trop, if elevated will get cardiology consult DM with neuropathy SSI, POCs unclear dose of lantus, will follow up with phamacy continue gabapentin for neuropathy HFpEF continue home dose of lasix HTN continue coreg to prevent tachycardia, but will hold hydralazine, losartan to allow for permissive HTN in setting of possible stroke monitor BP closely HLD continue statin Mood continue fluoxetine CAD s/p CABG 2010, no chest pain DVT ppx - heparin code status - DNR/DNI Attending: dr. Conley due to patient's dizziness and need for workup and to rule out stroke, eval for abnormal EKG patient will likely need 2 midnight stay in the hospital. Quality Stroke Does the patient have a stroke diagnosis?: No VTE Prior VTE?: No VTE Risk Level:: Medical - moderate - high VTE Device Contraindication: N/A - Device Ordered VTE Drug Contraindication: N/A - Med Ordered
[2021-07-14 18:58] LABS: Troponin-I High Sensitivity 5.2 ng/L (<3.5-17.0)
--- NOTE | 2021-07-14 20:58 | PC.NURSE ---
patient came over from the main ed to overflow ,patient vitals and orthostatics vitals was taken ,patient got settle into bed ,patient now resting comfortable in bed .
[2021-07-14] MEDS: Gabapentin 300 MG CAPSULE PO (21:23)
[2021-07-14] MEDS: Aspirin Enteric Coated 81 MG TABLET.DR PO (21:23)
[2021-07-14] MEDS: carvediloL 3.125 MG TABLET PO (21:23)
[2021-07-14] MEDS: Docusate Sodium 100 MG CAPSULE PO (21:24)
[2021-07-14] MEDS: Atorvastatin Calcium 40 MG TABLET PO (21:24)
[2021-07-14] MEDS: Insulin Glargine,Hum.rec.anlog 100 UNIT/ML 10 ML VIAL 10 UNIT SUBCUT (21:25)
[2021-07-14 21:56] LABS: Glucose, Whole Blood 161 mg/dL (60-115)
[2021-07-14] MEDS: 0.9 % Sodium Chloride Flush 3 ML SYRINGE IVFLUSH (23:20)
[2021-07-15] VITALS (10 sets, daily range): BP systolic 119–178; BP diastolic 55–79; PULSE 57–83; RESP 15–18; TEMP 36.1–36.8; O2SAT 93–98
--- NOTE | 2021-07-15 02:47 | PC.NURSE ---
Addendum entered by Myesha Simmons RN 07/15/21 06:11: Pt c/o unable to urinate, no urine all night and said that her last void is yesterday morning, bladder scan done= 525, DComfort Benavidez was made aware, straight cath ordered, pt was informed and compied, straight cath done aseptically and obtained 600ml clear yellow urine. Original Note: Assumed care at 2039, came from main ED on a stretcher, alert and oriented, soft spoken, no c/o pain anddizziness but endorse weakness, VSS, SR in tele, nuero checks done and WNL, needs met, instructed to use callbell.
[2021-07-15] MEDS: Heparin Sodium,Porcine 5,000 UNIT/ML VIAL 5000 UNIT SUBCUT ×2 (05:29→18:07)
[2021-07-15 07:23] LABS: Glucose, Whole Blood 102 mg/dL (60-115)
[2021-07-15 07:52] LABS: Hematocrit 33.3 % (37.0-47.0); Hemoglobin 10.4 g/dl (12.0-16.0); Mean Corpuscular HGB Conc 31.2 g/dl (31.0-35.0); Mean Corpuscular Hemoglobin 28.5 pg (27.0-33.0); Mean Corpuscular Volume 91.2 fL (80.0-98.0); Mean Platelet Volume 11.1 fL (9.4-12.3); Platelet Count 257 X10*3/uL (160-400); Red Blood Count 3.65 X10*6/uL (4.20-5.50); White Blood Count 12.7 X10*3/uL (4.8-10.8)
[2021-07-15] MEDS: Fluticasone/Vilanterol 100/25 BLST.W.DEV 1 PUFF INHALE (07:59)
[2021-07-15] MEDS: Albuterol/Iprat 2.5/0.5MG 3 ML AMPUL.NEB INHALE ×3 (07:59→18:53)
[2021-07-15 08:26] LABS: Anion Gap 8 (12-20); Blood Urea Nitrogen 15 mg/dL (9-16); Carbon Dioxide 30 mmol/L (22-29); Chloride 109 mmol/L (96-108); Cholesterol 126 mg/dL; Creatinine Clr Calc Pharmacy 27.7; Estimated Glomerular Filt Rate 54; Glucose Random 113 mg/dL (60-115); HDL Cholesterol 52 mg/dL; LDL Cholesterol Calculated 60 mg/dl; Potassium 4.9 mmol/L (3.3-5.1); Sodium 142 mmol/L (135-145); Triglycerides 70 mg/dL
[2021-07-15 08:32] LABS: Calcium 8.6 mg/dL (8.4-10.2)
[2021-07-15] MEDS: Fluticasone Propionate Nasal 16 GM SPRAY 2 SPRAY NOSTRIL-B (08:48)
[2021-07-15] MEDS: Calcium + Vitamin D 250 MG TABLET 500 MG PO (08:49)
[2021-07-15] MEDS: Sennosides 8.6 MG TABLET 17.2 MG PO (08:49)
[2021-07-15] MEDS: Docusate Sodium 100 MG CAPSULE PO ×2 (08:50→21:00)
[2021-07-15] MEDS: Furosemide 20 MG TABLET PO (08:50)
[2021-07-15] MEDS: carvediloL 3.125 MG TABLET PO ×2 (08:50→21:00)
[2021-07-15] MEDS: FLUoxetine HCl 10 MG CAPSULE PO (08:50)
--- NOTE | 2021-07-15 09:26 | PC.NURSE ---
Pt is A/O. Family at bedside. Neuros intact. VSS. Pt is resting in hospital bed offering no complaints. PT worked with pt this AM. Medicated per MAY. Callbell and belongings within reach.
--- NOTE | 2021-07-15 09:53 | MHC.SL.SWA ---
Speech Pathologist Impression: Mild oral phase dysphagia Risk of Aspiration Due to: Neurological Condition- Stroke Protocol Dysphasia Diet Status: Downgrade Liquid Consistency and Strategies for Safe Swallow: Liquid Intake Recommendation: Thin Liquid Intake Strategies: Small Sips Solid Food Consistency: Dietary Recommendations: Chopped/Advanced (NDD3) Additional Modifications to Solid Foods: Mild oral phase dysphagia secondary to edentulous state, patient is without dentures. Patient displayed no clinical signs of aspiration with PO trials. Recommend CHOPPED/ADVANCED (NDD3) solids with sauce/gravy for ease of mastication and THIN liquids, pills WHOLE with PUREE. Patient is able to self feed. Recommend intermittent supervision with aspiration precautions. PODIATRY PROFESSOR to f/u 1x time. Oral Medication Intake: Whole with Puree Please contact the pharmacy regarding appropriate crushable or liquid drug formulations that are available whenever modified delivery is recommended. Compensatory Strategies and Precautions to be Taken for Safe Swallow: Sitting Upright (90 deg) Small Bites and Sips Alternate Liquids/Solids Rate of Ingestion Change Avoid Specific Foods Supervision While Eating and Drinking for Safe Swallow: Intermittent Supervision Foods to Avoid: Tough, difficult to chew solids Swallowing Recommended Treatments: Compens. Strategy Educat. Recommendation for Speech: Inpatient Speech Therapy Comment: 1 f/u Doctor Assistant Clinican/Clinical Fellow: No Supervisory Statement: I have reviewed and agree with the student/clinical fellow's documentation: N/A Speech Language Pathologist: Tara Crowley M.A., [facility]PODIATRY PROFESSOR
[2021-07-15] MEDS: methylPREDNISolone Sod Succ 40 MG/ML VIAL IVPUSH ×2 (10:59→20:59)
--- NOTE | 2021-07-15 12:26 | P.CNNE_ITS ---
History of Present Illness Data of Consult Service Date: 07/15/21 Primary Care Provider: Cash Arevalo MD [facility] Reason for consult: Dizziness 75 years old woman came to hospital with new onset of dizziness that was reported as sense of motion or spinning associated with nausea and vomiting. There was no reporting of any recent cold or flu-like illness or fever. Her systolic blood pressure was 145 on admission. No obvious etiology was noted and she was admitted for further evaluation and had an MRI of brain done. Now she was feeling much better without any problems Review of Systems Review of Systems: No recent cold or flu-like illness headache or double vision PMFSH Past Medical History Medical History Allergic rhinitis Asthma Asthma CAD (coronary artery disease) COPD (chronic obstructive pulmonary disease) COPD exacerbation Cough Diabetes Hypertension Functional capacity: uses cane/walker Surgical History Surgical History History of hysterectomy Hx of CABG Social History Social History (Updated 07/14/21 @ 17:10 by JESS Tapia) Alcohol intake: never Patient Tobacco Use Status: Never used Tobacco Use of substances other than those prescribed or required for medical reasons: No Advance Directives: No Advance Directives Information Provided: Yes Meds Allergies Allergy/AdvReac Type Severity Reaction Status Date / Time No Known Allergies Allergy Verified 04/18/21 14:39 [No Known Allergies*] Active Medications: Current Medications Acetaminophen (Acetaminophen 325 Mg Tablet) 650 mg PO Q6H PRN PRN Reason: Pain, Mild (Pain Scale 1-3) Albuterol Sulfate (Albuterol Sulfate 90 Mcg 8 Gm Inhaler) 1 puff INHALE QID PRN PRN Reason: shortness of breath or wheezing Albuterol/Ipratropium (Albuterol/Iprat 2.5/0.5mg 3 Ml Ampul.Neb) 3 ml INHALE RQ6H WHILE AWAKE [facility] Last Admin: 07/15/21 07:59 Dose: 3 ml Documented by: Aspirin (Aspirin Enteric Coated 81 Mg Tablet.) 81 mg PO BEDTIME [facility] Last Admin: 07/14/21 21:23 Dose: 81 mg Documented by: Atorvastatin Calcium (Atorvastatin Calcium 40 Mg Tablet) 40 mg PO BEDTIME [facility] Last Admin: 07/14/21 21:24 Dose: 40 mg Documented by: Calcium Carbonate/Cholecalciferol (Calcium + Vitamin D 250 Mg Tablet) 500 mg PO DAILY [facility] Last Admin: 07/15/21 08:49 Dose: 500 mg Documented by: Carvedilol (Carvedilol 3.125 Mg Tablet) 3.125 mg PO BID [facility]; Protocol Last Admin: 07/15/21 08:50 Dose: 3.125 mg Documented by: Dextrose (Dextrose 50 % 25 Gm/50 Ml Syringe) 25 gm IVPUSH Q15M PRN; Protocol PRN Reason: per Hypoglycemia Standing Ord. Docusate Sodium (Docusate Sodium 100 Mg Capsule) 100 mg PO DAILY PRN PRN Reason: Constipation Docusate Sodium (Docusate Sodium 100 Mg Capsule) 100 mg PO BID [facility] Last Admin: 07/15/21 08:50 Dose: 100 mg Documented by: Fluoxetine HCl (Fluoxetine Hcl 10 Mg Capsule) 10 mg PO DAILY [facility] Last Admin: 07/15/21 08:50 Dose: 10 mg Documented by: Fluticasone Propionate (Fluticasone Propionate Nasal 16 Gm [place]) 2 spray NOSTRIL-B DAILY [facility] Last Admin: 07/15/21 08:48 Dose: 2 spray Documented by: Fluticasone/Vilanterol (Fluticasone/Vilanterol 100/25 Blst.W.Dev) 1 puff INHALE RDAILY [facility] Last Admin: 07/15/21 07:59 Dose: 1 puff Documented by: Furosemide (Furosemide 20 Mg Tablet) 20 mg PO DAILY [facility]; Protocol Last Admin: 07/15/21 08:50 Dose: 20 mg Documented by: Gabapentin (Gabapentin 300 Mg Capsule) 300 mg PO BEDTIME [facility] Last Admin: 07/14/21 21:23 Dose: 300 mg Documented by: Glucose (Glucose Gel 15 Gm Gel..Gram.) 15 gm PO Q15M PRN; Protocol PRN Reason: per Hypoglycemia Standing Ord. Heparin Sodium (Porcine) (Heparin Sodium,Porcine 5,000 Unit/Ml Vial) 5,000 unit SUBCUT Q12H [facility] Last Admin: 07/15/21 07:57 Dose: Not Given Documented by: Insulin Glargine (Insulin Glargine,Hum.Rec.Anlog 100 Unit/Ml 10 Ml Vial) 10 unit SUBCUT BEDTIME [facility] Last Admin: 07/14/21 21:25 Dose: 10 unit Documented by: Insulin Human Lispro (Insulin Lispro 100 Unit/Ml 3 Ml Vial) 0 unit SUBCUT QIDACHS [facility]; Protocol Last Admin: 07/15/21 07:57 Dose: Not Given Documented by: Methylprednisolone Sodium Succinate (Methylprednisolone Sod Succ 40 Mg/Ml Vial) 40 mg IVPUSH Q12H [facility] Last Admin: 07/15/21 10:59 Dose: 40 mg Documented by: Ondansetron HCl (Ondansetron Hcl 4 Mg/2 Ml Vial) 4 mg IVPUSH Q8H PRN PRN Reason: Nausea and Vomiting Pharmacy Consult (Consult Rx Perform Med Rec) 1 each MISCELLANE ONCE PRN PRN Reason: Consult order Senna (Sennosides 8.6 Mg Tablet) 17.2 mg PO DAILY [facility] Last Admin: 07/15/21 08:49 Dose: 17.2 mg Documented by: Sodium Chloride (0.9 % Sodium Chloride Flush 3 Ml Syringe) 3 ml IVFLUSH QSHIFT [facility] Last Admin: 07/15/21 08:57 Dose: Not Given Documented by: Tiotropium [place] (Tiotropium [place] 18 Mcg Cap.W.Dev) 1 puff INHALE RDAILY [facility] Last Admin: 07/15/21 07:59 Dose: 1 puff Documented by: Home Medications Medication Instructions Recorded Confirmed Last Taken Type atorvastatin 40 mg tablet 40 mg PO BEDTIME 12/17/19 07/14/21 Unknown History blood sugar diagnostic #10 ea 12/17/19 03/07/21 Unknown History calcium carbonate 600 mg-vitamin 1 tab PO QA 12/17/19 07/14/21 Unknown History D3 10 mcg (400 unit) tablet carvedilol 3.125 mg tablet 3.125 mg PO BID 12/17/19 07/14/21 Unknown History fluoxetine 10 mg capsule 10 mg [facility] 12/17/19 07/14/21 Unknown History fluticasone propionate 50 2 spray INTRANASAL DAILY 12/17/19 07/14/21 Unknown History mcg/actuation nasal spray,suspension furosemide 20 mg tablet 20 mg PO QAM 12/17/19 07/14/21 Unknown History gabapentin 300 mg capsule 300 mg PO BEDTIME 12/17/19 07/14/21 Unknown History hydralazine 50 mg tablet 50 mg PO BID 12/17/19 07/14/21 Unknown History insulin glargine 100 unit/mL (3 10 unit SUBCUT BEDTIME 12/17/19 07/14/21 Unknown History mL) subcutaneous pen lancets 33 gauge #100 ea 12/17/19 Unknown History losartan 25 mg tablet 25 mg PO DAILY 12/17/19 07/14/21 Unknown History pen needle, diabetic 31 gauge x #1200 ea 12/17/19 Unknown History 5/16 aspirin 81 mg tablet,delayed 81 mg PO BEDTIME 01/07/20 07/14/21 Unknown History release docusate sodium 100 mg capsule 100 mg PO BID 01/07/20 07/14/21 Unknown History sennosides 8.6 mg tablet 17.2 mg PO DAILY 01/07/20 07/14/21 Unknown History fluticasone 500 mcg-salmeterol 50 1 inh PO BID 07/14/21 07/14/21 Unknown History mcg/dose blistr powdr for inhalation Physical Exam Vital Signs: Vital Signs: Last Vital Signs Temp 97.7 F 07/15/21 08:00 Pulse 72 07/15/21 08:42 Resp 18 07/15/21 08:00 BP 132/56 L 07/15/21 08:42 Pulse Ox 97 07/15/21 08:42 BMI result Body Mass Index 42.7 Neuro: Other: He was alert and awake with normal spontaneity of speech fluency comprehension and affect. She mostly spoke in Urdu. She was able to comprehend Armenian commands and follows some. Extraocular muscles were intact. Visual burrell are full. Face was symmetrical. Teeth were missing. Tagipn-kg-qdcy testing was normal. Plantars were flexor. There was no focal weakness. Results Labs CBC & Chem 7: 07/15/21 07:27 07/15/21 07:27 Labs: Short CBC 07/15/21 Range/Units 07:27 WBC 12.7 H (4.8-10.8) X10*3/uL Hgb 10.4 L (12.0-16.0) g/dl Hct 33.3 L (37.0-47.0) % Plt Count 257 (160-400) X10*3/uL BMP 07/15/21 07:27 Sodium 142 Potassium 4.9 Chloride 109 H Carbon Dioxide 30 H BUN 15 Creatinine 1.00 Calcium 8.6 D Urine 07/14/21 Range/Units 14:34 Urine Color YELLOW Urine Appearance CLEAR Urine pH 6.5 (5.0-8.0) Ur Specific [place] 1.010 (1.005-1.025) Urine Protein NEG (NEG-TRACE) MG/DL Urine Glucose (UA) >=1000 H (NEG) MG/DL Noncontrast MRI of brain revealed moderate chronic ischemic lesions. One deep right parietal was probably subacute to chronic. Assessment and Plan (1) Dizziness: Status: Acute 75 years old woman with acute vertigo associated with nausea and vomiting without any other focal brainstem symptom. No symptoms were much better. MRI of brain has not reveal any explanation. There was no obvious metabolic abn ormality. Blood pressure was not too high. All these features were suggestive of a peripheral vestibular disorder. It is treated with p.r.n. meclizine and reassurance and education Procedures Date of Service Date of Service: 07/15/21
[2021-07-15 13:16] LABS: Glucose, Whole Blood 124 mg/dL (60-115)
--- NOTE | 2021-07-15 14:00 | CA_ITS ---
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 The visually estimated ejection fraction is between 55-60%. - No obvious valvular pathology seen on this study. - Mild pulmonary hypertension is present. Findings Left Ventricle Normal left ventricular cavity size. There is normal left ventricular wall thickness. The left ventricular systolic function is normal. The visually estimated ejection fraction is between 55-60%. There is no evidence of regional wall motion abnormalities. Diastolic function is normal for age. Wall motion assessment is suboptimal, but grossly no major abnormality. Right Ventricle Normal right ventricular cavity size and systolic function. Atria Both atria are normal in size. Aortic Valve The aortic valve was not well visualized. There is no aortic valve stenosis. There is no aortic valve regurgitation. Mitral Valve The mitral valve appears normal. There is trace mitral valve regurgitation. There is no mitral valve stenosis. Pulmonic Valve The pulmonic valve was not well visualized. Tricuspid Valve The tricuspid valve was not well visualized. There is trace tricuspid valve regurgitation. The right ventricular systolic pressure is 39 mmHg. Mild pulmonary hypertension is present. Great Vessels The aorta was not well visualized. The sinuses of valsalva and aortic arch are normal in size. Venous The inferior vena cava is mildly dilated and collapses less than 50% with inspiration. Pericardium/Pleural There is no evidence of pericardial effusion. Prior Study Comparison No significant change compared to prior study dated: 09/01/2017. Recommendations, Care & Conclusions No obvious valvular pathology seen on this study. Measurements 2D Linear Measurements IVSd: 0.85 0.6-0.9/0.6-1.0 cm LVIDd: 4.75 3.9-5.3/4.2-5.9 cm LVIDd Index: 2.97 2.4-3.2/2.2-3.1 cm/m2 LVIDs: 3.22 2.0-3.6 cm LVPWd: 0.83 0.7-1.1 cm LA Diam: 3.00 2.7-3.8/3.0-4.0 cm LAIDs Index: 1.88 1.5-2.3 cm/m2 LV Mass: 164.51 67-162/88-224 g LV Mass Index: 102.82 43-95/49-115 g/m2 LVOT Diam: 2.00 3.0+(-)1.3 cm Mitral Valve MV Pk E: 0.59 MV PK A: 0.68 MV Decel Time: 192.00 E/A: 0.90 E'Lateral: 9.57 E'Medial: 7.72 E/E' Med: 7.70 E/E' Lat: 6.20 PHT: 56.00 MVA PHT: 3.93 Decel [place]: 3.09 Aortic Valve AoV Pk Abel: 0.90 AoV Mn Abel: 0.63 AoV VTI: 0.22 AoV Pk Grad: 3.00 Aov Mn Grad: 2.00 OMER Cont.VTI: 1.97 LVOT LVOT Pk Abel: 0.59 LVOT Mn Abel: 0.38 LVOT VTI: 0.14 LVOT Pk Grad: 1.00 LVOT Mn Grad: 1.00 LVOT Diam: 2.00 LVOT Area: 3.14 Diastolic Function MV Pk E: 0.59 MV Pk A: 0.68 E/A: 0.90 E'Medial: 7.72 E/E' Med: 7.70 E' Laterial: 9.57 E/E' Lat: 6.20 Right Ventricle TAPSE (mm): 20.00 TVS' Abel: 12.00 Tricuspid Valve TR Pk Abel: 2.44 TR Pk Grad: 24.00 RA Press: 15.00 RVSP: 39.00 Great Vessels Aorta Sinus of Valsalva: 3.48 2.0-3.5 cm Ao Arch: 2.80 Updated in Other Vendor System with Status of Final Matthew Forrest MD electronically signed on 07/15/2021 5:20:54 PM with status of Final
--- NOTE | 2021-07-15 14:07 | P.PNIM_ITS ---
Subjective Subjective Date of Service: 07/15/21 Interval History: seen and examined this morning follow up for dizziness, sob dizziness resolved, speech has returned to normal still feeling short of breath, no significant cough, fever or chills Review of Systems Review of Systems: Yes all other systems are reviewed and are negative Constitutional Constitutional: Denies chills and Denies fever(s) Cardiovascular Cardiovascular: Denies chest pain and Denies palpitations Gastrointestinal Gastrointestinal: Denies nausea and Denies vomiting Endocrine Endocrine: Denies palpitations Physical Exam Vital Signs: Vital Signs: Last Vital Signs Temp 97.9 F 07/15/21 12:00 Pulse 58 07/15/21 12:00 Resp 15 07/15/21 12:00 BP 153/62 H 07/15/21 12:00 Pulse Ox 97 07/15/21 12:00 BMI result Body Mass Index 42.7 Const: General: cooperative, alert and awake Nutritional Appearance: overweight Orientation/consciousness: patient oriented x3 HEENT: Other: repetitive tongue movements Eyes: Pupils: Equal, round and reactive pupils present EOM: EOMs intact bilaterally Resp: Other: diminished lung sounds, prolonged expiratory phase, scatterd wheezing Effort & Inspection: able to speak in complete sentences Auscultation: diminished lung sounds Cardio: Rate: regular rate Heart sounds: S1 normal heart sound present and S2 normal heart sound present GI: Inspection: No distended Palpation (GI): Soft to palpation and nontender Neuro: General: patient oriented x3 and Unable to assess gait Cranial nerves: Yes Equal, round and reactive pupils present, Yes Bilaterally intact EOM present, Yes Nystagmus not present, Yes Normal facial strength present and Yes Midline tongue present Gait exam (Neuro): Unable to assess gait Motor exam (neuro): no tremor noted Coordination: [id number] test normal Extrem: General: Yes no pedal edema Objective Data Active Medications Acetaminophen (Acetaminophen 325 Mg Tablet) 650 mg PO Q6H PRN PRN Reason: Pain, Mild (Pain Scale 1-3) Albuterol Sulfate (Albuterol Sulfate 90 Mcg 8 Gm Inhaler) 1 puff INHALE QID PRN PRN Reason: shortness of breath or wheezing Albuterol/Ipratropium (Albuterol/Iprat 2.5/0.5mg 3 Ml Ampul.Neb) 3 ml INHALE RQ6H WHILE AWAKE [facility] Last Admin: 07/15/21 07:59 Dose: 3 ml Documented by: KATY Aspirin (Aspirin Enteric Coated 81 Mg Tablet.Dr) 81 mg PO BEDTIME [facility] Last Admin: 07/14/21 21:23 Dose: 81 mg Documented by: NIKO Atorvastatin Calcium (Atorvastatin Calcium 40 Mg Tablet) 40 mg PO BEDTIME [facility] Last Admin: 07/14/21 21:24 Dose: 40 mg Documented by: NIKO Calcium Carbonate/Cholecalciferol (Calcium + Vitamin D 250 Mg Tablet) 500 mg PO DAILY [facility] Last Admin: 07/15/21 08:49 Dose: 500 mg Documented by: NARCISO Carvedilol (Carvedilol 3.125 Mg Tablet) 3.125 mg PO BID [facility]; Protocol Last Admin: 07/15/21 08:50 Dose: 3.125 mg Documented by: NARCISO Dextrose (Dextrose 50 % 25 Gm/50 Ml Syringe) 25 gm IVPUSH Q15M PRN; Protocol PRN Reason: per Hypoglycemia Standing Ord. Docusate Sodium (Docusate Sodium 100 Mg Capsule) 100 mg PO DAILY PRN PRN Reason: Constipation Docusate Sodium (Docusate Sodium 100 Mg Capsule) 100 mg PO BID [facility] Last Admin: 07/15/21 08:50 Dose: 100 mg Documented by: NARCISO Fluoxetine HCl (Fluoxetine Hcl 10 Mg Capsule) 10 mg PO DAILY [facility] Last Admin: 07/15/21 08:50 Dose: 10 mg Documented by: NARCISO Fluticasone Propionate (Fluticasone Propionate Nasal 16 Gm [place]) 2 spray NOSTRIL-B DAILY [facility] Last Admin: 07/15/21 08:48 Dose: 2 spray Documented by: NARCISO Fluticasone/Vilanterol (Fluticasone/Vilanterol 100/25 Blst.W.Dev) 1 puff INHALE RDAILY [facility] Last Admin: 07/15/21 07:59 Dose: 1 puff Documented by: KATY Furosemide (Furosemide 20 Mg Tablet) 20 mg PO DAILY [facility]; Protocol Last Admin: 07/15/21 08:50 Dose: 20 mg Documented by: NARCISO Gabapentin (Gabapentin 300 Mg Capsule) 300 mg PO BEDTIME [facility] Last Admin: 07/14/21 21:23 Dose: 300 mg Documented by: NIKO Glucose (Glucose Gel 15 Gm Gel..Gram.) 15 gm PO Q15M PRN; Protocol PRN Reason: per Hypoglycemia Standing Ord. Heparin Sodium (Porcine) (Heparin Sodium,Porcine 5,000 Unit/Ml Vial) 5,000 unit SUBCUT Q12H [facility] Last Admin: 07/15/21 05:29 Dose: 5,000 unit Documented by: NIKO Insulin Glargine (Insulin Glargine,Hum.Rec.Anlog 100 Unit/Ml 10 Ml Vial) 10 unit SUBCUT BEDTIME [facility] Last Admin: 07/14/21 21:25 Dose: 10 unit Documented by: NIKO Insulin Human Lispro (Insulin Lispro 100 Unit/Ml 3 Ml Vial) 0 unit SUBCUT QIDACHS [facility]; Protocol Last Admin: 07/15/21 13:16 Dose: Not Given Documented by: NARCISO Non-Admin Reason: No Insulin Coverage Comments: POC 124 Methylprednisolone Sodium Succinate (Methylprednisolone Sod Succ 40 Mg/Ml Vial) 40 mg IVPUSH Q12H [facility] Last Admin: 07/15/21 10:59 Dose: 40 mg Documented by: NARCISO Ondansetron HCl (Ondansetron Hcl 4 Mg/2 Ml Vial) 4 mg IVPUSH Q8H PRN PRN Reason: Nausea and Vomiting Pharmacy Consult (Consult Rx Perform Med Rec) 1 each MISCELLANE ONCE PRN PRN Reason: Consult order Senna (Sennosides 8.6 Mg Tablet) 17.2 mg PO DAILY [facility] Last Admin: 07/15/21 08:49 Dose: 17.2 mg Documented by: NARCISO Sodium Chloride (0.9 % Sodium Chloride Flush 3 Ml Syringe) 3 ml IVFLUSH QSHIFT [facility] Last Admin: 07/15/21 08:57 Dose: Not Given Documented by: NARCISO Non-Admin Reason: Med Not Available Tiotropium [place] (Tiotropium [place] 18 Mcg Cap.W.Dev) 1 puff INHALE RDAILY [facility] Last Admin: 07/15/21 07:59 Dose: 1 puff Documented by: KATY Labs CBC & Chem 7: 07/15/21 07:27 07/15/21 07:27 Labs: Laboratory Results - last 24 hr 07/14/21 07/14/21 07/14/21 14:34 18:15 20:57 MCV MCH MCHC RDW Plt Count MPV Absolute Nucleated RBC Nucleated RBC % (auto) Anion Gap Estim Creat Clear Calc Estimated GFR POC Glucose 161 H Random Glucose Calcium Troponin I High Sens 5.2 Triglycerides Cholesterol LDL Cholesterol, Calc HDL Cholesterol Urine Color YELLOW Urine Appearance CLEAR Urine pH 6.5 Ur Specific [place] 1.010 Urine Protein NEG Urine Glucose (UA) >=1000 H Urine Ketones NEG Urine Blood NEG Urine Nitrite NEG Ur Leukocyte Esterase NEG Urine RBC 0-2 Urine WBC 0-2 Ur Squamous Epith Cells TRACE Urine Bacteria NONE Hyaline Casts 0-2 Urine Mucus TRACE 07/15/21 07/15/21 07/15/21 07:19 07:27 07:27 MCV 91.2 MCH 28.5 MCHC 31.2 RDW 13.0 Plt Count 257 MPV 11.1 Absolute Nucleated RBC 0.000 Nucleated RBC % (auto) 0.0 Anion Gap 8 L Estim Creat Clear Calc 27.7 Estimated GFR 54 POC Glucose 102 Random Glucose 113 Calcium 8.6 D Troponin I High Sens Triglycerides 70 Cholesterol 126 LDL Cholesterol, Calc 60 HDL Cholesterol 52 Urine Color Urine Appearance Urine pH Ur Specific [place] Urine Protein Urine Glucose (UA) Urine Ketones Urine Blood Urine Nitrite Ur Leukocyte Esterase Urine RBC Urine WBC Ur Squamous Epith Cells Urine Bacteria Hyaline Casts Urine Mucus 07/15/21 13:07 MCV MCH MCHC RDW Plt Count MPV Absolute Nucleated RBC Nucleated RBC % (auto) Anion Gap Estim Creat Clear Calc Estimated GFR POC Glucose 124 H Random Glucose Calcium Troponin I High Sens Triglycerides Cholesterol LDL Cholesterol, Calc HDL Cholesterol Urine Color Urine Appearance Urine pH Ur Specific [place] Urine Protein Urine Glucose (UA) Urine Ketones Urine Blood Urine Nitrite Ur Leukocyte Esterase Urine RBC Urine WBC Ur Squamous Epith Cells Urine Bacteria Hyaline Casts Urine Mucus Assessment and Plan (1) Dizziness: Status: Acute (2) Asthma with exacerbation: Status: Acute Plan This is a 75-year-old Albanian-speaking female with history of CAD s/p CABG, HTN, DM, COPD/asthma who presents to the ED with dizziness Dizziness Resolved brain MRI showing chronic right occipital lobe infarct continue home ASA, statin seen by neuro - recommend prn meclizine for recurrent dizziness PT rec home with services seen by speech rec NDD3 diet as pt is edentulous/has no dentures Dyspnea seems most likely r/t Acute exacerbation of Asthma/COPD pt reports frequent episodes of sob and frequent treatment with steroids scheduled breathing treatments, systemic steroids continue home inhalers BNP 164, echo to eval for chf h/o CAD s/p CABG in 2010 twave inversions on EKG new compared to previous no chest pain. trop negative echo pending DM with neuropathy SSI, POCs continue lantus continue gabapentin for neuropathy HFpEF continue home dose of lasix HTN resume hydralazine, losartan continue coreg monitor BP closely HLD continue statin Mood continue fluoxetine DVT ppx - heparin code status - DNR/DNI Attending: dr. Conley due to patient's dizziness and need for workup and treatment for dyspnea and to obtain echocardiogram Quality Stroke Does the patient have a stroke diagnosis?: No VTE Prior VTE?: No VTE Risk Level:: Medical - moderate - high VTE Device Contraindication: N/A - Device Ordered VTE Drug Contraindication: N/A - Med Ordered
--- NOTE | 2021-07-15 16:21 | PC.NURSE ---
pts HR dropped to 32. pt offering no complaints. Provider Dulce Eid made aware.
[2021-07-15 17:09] LABS: Glucose, Whole Blood 223 mg/dL (60-115)
[2021-07-15] MEDS: Insulin Lispro 100 UNIT/ML 3 ML VIAL SUBCUT ×2 (18:06→21:00)
[2021-07-15] MEDS: 0.9 % Sodium Chloride Flush 3 ML SYRINGE IVFLUSH ×2 (18:07→20:59)
[2021-07-15 20:18] LABS: Glucose, Whole Blood 327 mg/dL (60-115)
[2021-07-15] MEDS: hydrALAZINE HCl 50 MG TABLET PO (21:00)
[2021-07-15] MEDS: Insulin Glargine,Hum.rec.anlog 100 UNIT/ML 10 ML VIAL 10 UNIT SUBCUT (21:00)
[2021-07-15] MEDS: Atorvastatin Calcium 40 MG TABLET PO (21:00)
[2021-07-15] MEDS: Aspirin Enteric Coated 81 MG TABLET.DR PO (21:00)
[2021-07-15] MEDS: Gabapentin 300 MG CAPSULE PO (21:00)
[2021-07-16 03:16] VITALS: BP 151/66; PULSE 62; RESP 19; TEMP 36.5; O2SAT 95
[2021-07-16] MEDS: Heparin Sodium,Porcine 5,000 UNIT/ML VIAL 5000 UNIT SUBCUT (04:14)
[2021-07-16 07:13] VITALS: BP 161/77; PULSE 60; RESP 20; TEMP 36.6; O2SAT 94
[2021-07-16] MEDS: Fluticasone/Vilanterol 100/25 BLST.W.DEV 1 PUFF INHALE (07:18)
[2021-07-16] MEDS: Albuterol/Iprat 2.5/0.5MG 3 ML AMPUL.NEB INHALE ×2 (07:18→11:10)
[2021-07-16 07:19] VITALS: PULSE 60; RESP 18; O2SAT 96
[2021-07-16 07:41] LABS: Glucose, Whole Blood 127 mg/dL (60-115)
[2021-07-16] MEDS: methylPREDNISolone Sod Succ 40 MG/ML VIAL IVPUSH (09:38)
[2021-07-16] MEDS: FLUoxetine HCl 10 MG CAPSULE PO (09:40)
[2021-07-16] MEDS: Sennosides 8.6 MG TABLET 17.2 MG PO (09:40)
[2021-07-16] MEDS: carvediloL 3.125 MG TABLET PO (09:40)
[2021-07-16] MEDS: 0.9 % Sodium Chloride Flush 3 ML SYRINGE IVFLUSH (09:40)
[2021-07-16] MEDS: Docusate Sodium 100 MG CAPSULE PO (09:40)
[2021-07-16] MEDS: Furosemide 20 MG TABLET PO (09:40)
[2021-07-16] MEDS: Losartan Potassium 25 MG TABLET PO (09:40)
[2021-07-16] MEDS: Calcium + Vitamin D 250 MG TABLET 500 MG PO (09:40)
[2021-07-16] MEDS: hydrALAZINE HCl 50 MG TABLET PO (09:41)
[2021-07-16] MEDS: Fluticasone Propionate Nasal 16 GM SPRAY 2 SPRAY NOSTRIL-B (09:42)
--- NOTE | 2021-07-16 10:16 | P.DS_ITS ---
DS: Providers Provider Date of Service: 07/16/21 Date of admission: 07/14/21 16:23 Primary care physician: Cash Arevalo MD Consults: 07/14/21 16:27 Consult to Neurology Routine Consulting Provider: [facility] Reason for consultation: dizziness Has provider been notified: No Attending physician on discharge: Jose Manuel Juarez Discharging clinician: Michelle Headley DS: Diagnosis Discharge Diagnosis (1) Dizziness: Status: Acute (2) Asthma with exacerbation: Status: Acute DS: Summary Hospital Course Hospital Course: HP as per admitting provider this is a 75-year-old Syriac-speaking female who presents to the emergency department with dizziness.? History was obtained with the use of a head transfer clerk.? Patient was feeling okay yesterday and denies any dizziness.? She went to bed around 02:00 and when she woke up at 08:00 this morning she immediately felt dizzy.? Her dizziness felt like the room spinning.? It was made worse with movement and improved with rest.? She had associated nausea and vomiting x1.? She also reported slurred speech which has improved but has not resolved.? She was unable to stand up due to the severity of her dizziness as well as weakness in bilateral lower extremities.? She was brought to the emergency department for evaluation.? In itially she received a dose of meclizine.? brain CT was negative for any acute intracranial abnormalities.? her dizziness persisted the decision was made to admit her for further management.? Given concern for stroke her case was discussed with neurologist but she was out of the window for tPA and she will be admitted for further workup. ? The patient states that she has had shortness of breath intermittently past 6-7 months.? She does report feeling short of breath yesterday, she still has some shortness of breath however she reports that is improved today.? She denies any associated fever or chills.? She has had some dry cough.? Chest x-ray showed no evidence of pneumonia . Dizziness Resolved brain MRI showing chronic right occipital lobe infarct, nothing acute continue home ASA, statin seen by neuro - recommend prn meclizine for recurrent dizziness if needed May have been related to recent steroid taper and dehydration. Dyspnea seems most likely r/t Acute exacerbation of Asthma/COPD pt reports frequent episodes of sob and frequent treatment with steroids treated with scheduled breathing treatments, systemic steroids continue home inhalers h/o CAD s/p CABG in 2011 twave inversions on EKG new compared to previous no chest pain. trop negative normal echo with EF 55-60% and no rwma DM with neuropathy continue lantus continue gabapentin for neuropathy HFpEF continue home dose of lasix HTN hydralazine, losartan, coreg HLD continue statin Mood continue fluoxetine Time Spent with Patient Time attestation: Total time spent providing and/or coordinating discharge services: Discharge coordination time: Greater than 30 minutes Quality: Safe Use of Opioids Does Pt have an Active Cancer Diagnosis on the Problem List?: No Quality: Stroke Does the patient have a stroke diagnosis?: No Physical Exam Vital Signs: Vital Signs: Last Vital Signs Temp 97.9 F 07/16/21 07:13 Pulse 60 07/16/21 07:19 Resp 18 07/16/21 07:19 BP 161/77 H 07/16/21 07:13 Pulse Ox 94 07/16/21 07:13 BMI result Body Mass Index 42.7 Appearing in no acute distress head is normocephalic atraumatic eyes pupils are PERRLA sclera is anicteric mouth throat mucous membranes are intact and moist neck is supple no lymphadenopathy, no JVD noted lung sounds are clear to auscultation heart regular rate rhythm, clear S1, S2 positive bowel sounds, abdomen is soft, nontender neuro patient is alert x3, no focal deficits DS: Data Data Completed and Pending Labs on day of discharge: Laboratory Results - last 24 hr 07/15/21 07/15/21 07/15/21 13:07 17:05 20:02 POC Glucose 124 H 223 H 327 H 07/16/21 07:13 POC Glucose 127 H Discharge Plan Discharge Anticipated Discharge Date/Time: 07/16/21 10:00 Patient Disposition: Home, Self-Care Discharge Diagnosis: Dizziness Slurred speech Referrals: Cash Arevalo MD [Primary Care Provider] - 1 Week Discharge Medications: Continued Incruse Ellipta 62.5 mcg/actuation blister with device 1 inh inhalation DAILY Qty: 30 5RF albuterol sulfate [ProAir HFA] 90 mcg/actuation HFA aerosol inhaler 1 inh inhalation QID PRN (Reason: shortness of breath or wheezing) Qty: 8.5 0RF fluticasone propion-salmeterol 500-50 mcg/dose blister with device 1 inh PO BID 0RF (DME) lancets 33 gauge misc See Rx Instructions ea Not Applicable TID Qty: 100 0RF Rx Instructions: As directed calcium carbonate-vitamin D3 600 mg(1,500mg) -400 unit tablet 1 tab PO QAM 0RF fluticasone propionate 50 mcg/actuation spray,suspension 2 spray intranasal DAILY 0RF furosemide 20 mg tablet 20 mg PO QAM 0RF hydralazine 50 mg tablet 50 mg PO BID 0RF gabapentin 300 mg capsule 300 mg PO BEDTIME 0RF losartan 25 mg tablet 25 mg PO DAILY 0RF carvedilol 3.125 mg tablet 3.125 mg PO BID 0RF (DME) blood sugar diagnostic Strip See Rx Instructions ea Not Applicable TID Qty: 10 0RF Rx Instructions: As directed atorvastatin 40 mg tablet 40 mg PO BEDTIME 0RF insulin glargine 100 unit/mL (3 mL) insulin pen 10 unit subcut BEDTIME 0RF (DME) pen needle, diabetic 31 gauge x 5/16 needle See Rx Instructions ea .ROUTE .MEDSUPPLY Qty: 1200 0RF Rx Instructions: As directed fluoxetine 10 mg capsule 10 mg PO QAM 0RF aspirin 81 mg tablet,delayed release (DR/EC) 81 mg PO BEDTIME 0RF sennosides 8.6 mg tablet 17.2 mg PO DAILY 0RF docusate sodium 100 mg capsule 100 mg PO BID 0RF Discharge Orders: Discharge Order (Routine); Ordered 07/16/21 Ordered By: Michelle Headley Diet: advance to usual diet Activity on Discharge: As tolerated Stand Alone Forms: Patient Portal Discharge page Care Plan Goals: Resolution of symptoms Health Concerns: Dizziness slurred speech Plan of Treatment: Follow up with primary care provider as needed Take all medications as prescribed Assessment: See discharge summary
[2021-07-16 11:09] LABS: Glucose, Whole Blood 204 mg/dL (60-115)
[2021-07-16 11:13] VITALS: RESP 18; O2SAT 97
[2021-07-16] MEDS: Insulin Lispro 100 UNIT/ML 3 ML VIAL SUBCUT (11:40)
--- NOTE | 2021-07-16 14:47 | MHC.CM.PN ---
CM MET WITH PT AND DAUGHTER WHO WAS AT BEDSIDE PT'S GRAND DAUGHTER LIVES WITH HER AND PT HAS DAILY HOSPICE PATIENT CARE SECRETARY HOURS PT ALSO HAS A [facility] RN CM THAT CHECKS IN PERIODICALLY PT HAS A HCP ON FILE PCP: MONI HENDERSON IMM DELIVERED PT WILL DC HOME TODAY WITH RESUMPTION OF HOSPICE PATIENT CARE SECRETARY SERVICES DAUGHTER WILL TRANSPORT
== END 2021-07-16 12:13 | disposition home or self-care (01) | DRG 202 ==
LOC: HO.ED 16:12 → HO.EDOVER 16:39 → HO.IMC 07-15 14:35
PROVIDERS: Physician Assistant; Admitting Provider Physician Assistant Medical; Emergency Provider Emergency Medicine; PCP Internal Medicine; Visit Provider Nurse Practitioner Acute Care
DX: J45.901 Unspecified asthma with (acute) exacerbation (principal); R47.01 Aphasia; I50.32 Chronic diastolic (congestive) heart failure; J44.1 Chronic obstructive pulmonary disease with (acute) exacerbation; Z66 Do not resuscitate; I25.10 Atherosclerotic heart disease of native coronary artery without angina pectoris; R42 Dizziness and giddiness; E11.40 Type 2 diabetes mellitus with diabetic neuropathy, unspecified; I11.0 Hypertensive heart disease with heart failure; F39 Unspecified mood [affective] disorder; Z20.822 Contact with and (suspected) exposure to COVID-19; Z95.1 Presence of aortocoronary bypass graft; Z79.4 Long term (current) use of insulin; Z79.51 Long term (current) use of inhaled steroids; Z79.82 Long term (current) use of aspirin; Z79.899 Other long term (current) drug therapy
CPT/HCPCS: 36415; 70450; 70551; 71045; 80048; 80053; 80061; 81001; 82947; 83690; 83735; 83880; 84484; 85025; 85027; 85610; 87635; 92610; 93005; 93306; 94640; 96361; 96374; 97162; 97166; 99285; J2405; J2920

== ENCOUNTER 2021-07-29 11:47 | Inpatient (IN) | payer MEDICARE, SELFPAY ==
--- NOTE | ~2021-07-29 | XR_ITS ---
EXAMINATION: XR CHEST CLINICAL INFORMATION: Dyspnea. COMPARISON: None TECHNIQUE: Frontal view of the chest was obtained. FINDINGS: The lungs are well-expanded without any acute pneumonic process. The heart size and pulmonary vascularity is normal. There are median sternotomy sutures and mediastinal ismael from previous intervention. No gross bony abnormality seen. XR/XR chest 1V IMPRESSION: Unremarkable chest exam.
--- NOTE | 2021-07-29 11:56 | ECG_ITS ---
Test Reason : DYSPENA Blood Pressure : / mmHG Vent. Rate : 067 BPM Atrial Rate : 067 BPM P-R Int : 136 ms QRS Dur : 084 ms QT Int : 462 ms P-R-T Axes : 050 033 009 degrees QTc Int : 488 ms Normal sinus rhythm Nonspecific ST and T wave abnormality Abnormal ECG When compared with ECG of 14-JUL-2021 17:07, Vent. rate has decreased BY 39 BPM Nonspecific T wave abnormality has replaced inverted T waves in Inferior leads Nonspecific T wave abnormality has replaced inverted T waves in Lateral leads Referred By: Andreia Ferrari Electronically Signed By:CARLOS GOODE MD
[2021-07-29] MEDS: Albuterol Sulfate (0.083%) 2.5 MG/3 ML VIAL.NEB 10 MG INHALE (12:00)
[2021-07-29 12:01] VITALS: PULSE 68; RESP 20; O2SAT 100
[2021-07-29 12:04] VITALS: BP 135/86; PULSE 90; RESP 25; TEMP 36.6; O2SAT 99; BMI 26.0
--- NOTE | 2021-07-29 12:05 | ED.ASTHMA ---
HPI - Asthma General Chief Complaint: Dyspnea Stated Complaint: breathing difficulty Time Seen by Provider: 07/29/21 11:56 Source: patient and old records reviewed Mode of arrival: EMS Limitations: no limitations History of Present Illness HPI Narrative: c/o asthma exacerbation x 1 day - 88% at clinic placed on 2L NC not on steroids at home, no treatment en route up to 100% on arrival with supplemental O2 MD complaint: asthma attack , shortness of breath and wheezing Onset (ago): day(s) (yesterday ) Severity: moderate Context: recent URI Associated symptoms: dry cough and fever Asthma History: childhood onset Related Data Home Medications Medication Instructions Recorded Confirmed atorvastatin 40 mg tablet 40 mg PO BEDTIME 12/17/19 07/14/21 blood sugar diagnostic #10 ea 12/17/19 03/07/21 calcium carbonate 600 mg-vitamin 1 tab PO QAM 12/17/19 07/14/21 D3 10 mcg (400 unit) tablet carvedilol 3.125 mg tablet 3.125 mg PO BID 12/17/19 07/14/21 fluoxetine 10 mg capsule 10 mg PO QAM 12/17/19 07/14/21 fluticasone propionate 50 2 spray INTRANASAL DAILY 12/17/19 07/14/21 mcg/actuation nasal spray,suspension furosemide 20 mg tablet 20 mg PO QAM 12/17/19 07/14/21 gabapentin 300 mg capsule 300 mg PO BEDTIME 12/17/19 07/14/21 hydralazine 50 mg tablet 50 mg PO BID 12/17/19 07/14/21 insulin glargine 100 unit/mL (3 10 unit SUBCUT BEDTIME 12/17/19 07/14/21 mL) subcutaneous pen lancets 33 gauge #100 12/17/19 losartan 25 mg tablet 25 mg PO DAILY 12/17/19 07/14/21 pen needle, diabetic 31 gauge x #1200 12/17/1908/01 aspirin 81 mg tablet,delayed 81 mg PO BEDTIME 01/07/20 07/14/21 release docusate sodium 100 mg capsule 100 mg PO BID 01/07/20 07/14/21 sennosides 8.6 mg tablet 17.2 mg PO DAILY 01/07/20 07/14/21 fluticasone 500 mcg-salmeterol 50 1 inh PO BID 07/14/21 07/14/21 mcg/dose blistr powdr for inhalation Previous Rx's Medication Instructions Recorded albuterol sulfate 90 mcg/actuation 1 inh INHALATION QID PRN #8.5 g 12/03/20 aerosol inhaler (ProAir HFA) Incruse Ellipta 62.5 mcg/actuation 1 inh INHALATION DAILY #30 ea NS 05/31/21 powder for inhalation (umeclidinium) Allergies Allergy/AdvReac Type Severity Reaction Status Date / Time No Known Allergies Allergy Verified 07/29/21 12:07 [No Known Allergies*] Review of Systems Review of Systems: Constitutional : pos Fever, No Chills ENT/Mouth : No Hoarseness, No sore throat, No Rhinorrhea Eyes: No Redness, No Discharge, No Vision Changes Cardiovascular : No Chest Pain, positive SOB, positive Dyspnea on Exertion, No Edema Respiratory : positive Cough, No Sputum, positive Wheezing, Gastrointestinal : No Nausea, No Vomiting, No Diarrhea, No abdominal Pain Genitourinary : No Dysuria, No Hematuria Musculoskeletal : No joint pain, No Myalgias Skin : No rash Neuro : No Weakness, No Numbness, No Headache Psych : No anxiety, depression Heme/Lymph: No Bruising, No Bleeding Endocrine : No Polyuria, No Polydipsia All other systems reviewed and are negative [facility] Past Medical History Medical History Allergic rhinitis Asthma Asthma CAD (coronary artery disease) COPD (chronic obstructive pulmonary disease) COPD exacerbation Cough Diabetes Hypertension Surgical History History of hysterectomy Hx of CABG Social History Social History Household Members: Family Housing: Assisted Living Facility Do you presently have visiting nurse or other home services: Yes ([facility] and [employer]) Alcohol intake: never Patient Tobacco Use Status: Never used Tobacco Advance Directives: No Advance Directives Information Provided: Yes service: No Current occupational status: unemployed Physical Exam Vital Signs: Vital Signs: Last Vital Signs Temp 97.8 F 07/29/21 12:04 Pulse 90 07/29/21 12:04 Resp 25 H 07/29/21 12:04 BP 135/86 07/29/21 12:04 Pulse Ox 99 07/29/21 12:04 Oxygen Flow Rate 2 07/29/21 12:04 BMI result Body Mass Index 26.0 Appearance: Alert. Oriented X3. Mild acute distress. Eyes: Pupils equal, round and reactive to light. ENT: Pharynx normal. Neck: Normal inspection. Neck supple. CVS: Normal heart rate and rhythm. Pulses normal. Respiratory: Mild respiratory distress tachypnea and retractions. Breath sounds decreased with exp wheezes throughout Abdomen: Soft and nontender. Skin: Skin warm and dry. Normal skin color. Normal skin turgor. Extremities: No lower extremity edema. No calf ttp Neuro: Oriented X 3. No motor deficit. No sensory deficit. Course Course Course Narrative: repeat 5mg neb, still on O2 will need admission given tachypnea and need for O2 MDM - Asthma MDM Narrative Medical decision making narrative: 75 yo female with hx of asthma, COPD, CAD, HTN, DM reports asthma attack and wheezing since yesterday found to be 88% on RA at [facility] - at this time will need hour long neb 10mg albuterol, IV steroids, IV magnesium, labs, CXR - dispo per results clinical improvement suspect asthma exacerbation she does mention some fevers at home - CXR for pneumonia/COVID and flu swab ordered at this time. Lab Data Result diagrams: 07/29/21 12:28 07/29/21 12:28 Labs: Lab Results 07/29/21 07/29/21 07/29/21 Range/Units 12:27 12:28 12:28 WBC 11.3 H (4.8-10.8) X10*3/uL RBC 4.17 L (4.20-5.50) X10*6/uL Hgb 11.8 L (12.0-16.0) g/dl Hct 38.1 (37.0-47.0) % MCV 91.4 (80.0-98.0) fL MCH 28.3 (27.0-33.0) pg MCHC 31.0 (31.0-35.0) g/dl RDW 13.6 (11.0-16.0) % Plt Count 221 (160-400) X10*3/uL MPV 11.7 (9.4-12.3) fL Immature Gran % (Auto) 0.4 (0.0-0.4) % Neut % (Auto) 63.4 (45-73) % Lymph % (Auto) 16.4 L (20-40) % [place] % (Auto) 12.3 H (2-11) % Eos % (Auto) 7.1 H (0-4) % Baso % (Auto) 0.4 (0-2) % Lymph # (Auto) 1.9 (1.2-4.9) X10*3/uL [place] # (Auto) 1.4 H (0.1-1.2) X10*3/uL Eos # (Auto) 0.8 H (0.0-0.4) X10*3/uL Baso # (Auto) 0.0 (0.0-0.2) X10*3/uL Abs Immat Gran (auto) 0.04 H (0.00-0.03) X10*3/uL Absolute Neuts (auto) 7.2 (2.0-8.3) x10*3/uL Absolute Nucleated RBC 0.000 (0.0-0.012) X10*3/uL Nucleated RBC % (auto) 0.0 (0.0-0.2) /100WBC PT (9.9-13.0) SEC INR (0.9-1.1) VBG pH (7.32-7.43) VBG pCO2 mmHg VBG pO2 mmHg VBG HCO3 (22-26) mmol/L VBG O2 Saturation % VBG Base Excess mmol/L Sodium 139 (135-145) mmol/L Potassium 4.6 (3.3-5.1) mmol/L Chloride 103 (96-108) mmol/L Carbon Dioxide 25 (22-29) mmol/L Anion Gap 16 (12-20) BUN 14 (9-16) mg/dL Creatinine 1.06 (0.5-1.4) mg/dL Estim Creat Clear Calc 43.6 Estimated GFR 51 Random Glucose 188 H (60-115) mg/dL Lactic Acid (0.5-2.0) mmol/L Calcium 9.3 D (8.4-10.2) mg/dL Magnesium 1.9 (1.6-2.6) mg/dL Total Bilirubin 0.6 (0.0-1.0) mg/dL Direct Bilirubin 0.2 (0.0-0.5) mg/dL AST 26 D (5-31) U/L ALT 26 (0-31) U/L Alkaline Phosphatase 96 (39-117) U/L Troponin I High Sens 6.9 (<3.5-17.0) ng/L Total Protein 6.9 (6.5-8.0) g/dL Albumin 3.8 (3.5-5.0) g/dL COVID-19 (OLIVIA) (Negative) COVID-19 Clin Com Influenza Type A (JULITA) (Negative) Influenza Type B (JULITA) (Negative) Influenza A & B Note 07/29/21 07/29/21 07/29/21 Range/Units 12:28 12:28 12:29 WBC (4.8-10.8) X10*3/uL RBC (4.20-5.50) X10*6/uL Hgb (12.0-16.0) g/dl Hct (37.0-47.0) % MCV (80.0-98.0) fL MCH (27.0-33.0) pg MCHC (31.0-35.0) g/dl RDW (11.0-16.0) % Plt Count (160-400) X10*3/uL MPV (9.4-12.3) fL Immature Gran % (Auto) (0.0-0.4) % Neut % (Auto) (45-73) % Lymph % (Auto) (20-40) % [place] % (Auto) (2-11) % Eos % (Auto) (0-4) % Baso % (Auto) (0-2) % Lymph # (Auto) (1.2-4.9) X10*3/uL [place] # (Auto) (0.1-1.2) X10*3/uL Eos # (Auto) (0.0-0.4) X10*3/uL Baso # (Auto) (0.0-0.2) X10*3/uL Abs Immat Gran (auto) (0.00-0.03) X10*3/uL Absolute Neuts (auto) (2.0-8.3) x10*3/uL Absolute Nucleated RBC (0.0-0.012) X10*3/uL Nucleated RBC % (auto) (0.0-0.2) /100WBC PT 11.1 (9.9-13.0) SEC INR 1.0 (0.9-1.1) VBG pH 7.43 (7.32-7.43) VBG pCO2 42 mmHg VBG pO2 36 mmHg VBG HCO3 28 H (22-26) mmol/L VBG O2 Saturation 55.0 % VBG Base Excess 3.6 mmol/L Sodium (135-145) mmol/L Potassium (3.3-5.1) mmol/L Chloride (96-108) mmol/L Carbon Dioxide (22-29) mmol/L Anion Gap (12-20) BUN (9-16) mg/dL Creatinine (0.5-1.4) mg/dL Estim Creat Clear Calc Estimated GFR Random Glucose (60-115) mg/dL Lactic Acid 1.0 (0.5-2.0) mmol/L Calcium (8.4-10.2) mg/dL Magnesium (1.6-2.6) mg/dL Total Bilirubin (0.0-1.0) mg/dL Direct Bilirubin (0.0-0.5) mg/dL AST (5-31) U/L ALT (0-31) U/L Alkaline Phosphatase (39-117) U/L Troponin I High Sens (<3.5-17.0) ng/L Total Protein (6.5-8.0) g/dL Albumin (3.5-5.0) g/dL COVID-19 (OLIVIA) (Negative) COVID-19 Clin Com Influenza Type A (JULITA) (Negative) Influenza Type B (JULITA) (Negative) Influenza A & B Note 07/29/21 07/29/21 Range/Units 12:36 12:39 WBC (4.8-10.8) X10*3/uL RBC (4.20-5.50) X10*6/uL Hgb (12.0-16.0) g/dl Hct (37.0-47.0) % MCV (80.0-98.0) fL MCH (27.0-33.0) pg MCHC (31.0-35.0) g/dl RDW (11.0-16.0) % Plt Count (160-400) X10*3/uL MPV (9.4-12.3) fL Immature Gran % (Auto) (0.0-0.4) % Neut % (Auto) (45-73) % Lymph % (Auto) (20-40) % [place] % (Auto) (2-11) % Eos % (Auto) (0-4) % Baso % (Auto) (0-2) % Lymph # (Auto) (1.2-4.9) X10*3/uL [place] # (Auto) (0.1-1.2) X10*3/uL Eos # (Auto) (0.0-0.4) X10*3/uL Baso # (Auto) (0.0-0.2) X10*3/uL Abs Immat Gran (auto) (0.00-0.03) X10*3/uL Absolute Neuts (auto) (2.0-8.3) x10*3/uL Absolute Nucleated RBC (0.0-0.012) X10*3/uL Nucleated RBC % (auto) (0.0-0.2) /100WBC PT (9.9-13.0) SEC INR (0.9-1.1) VBG pH (7.32-7.43) VBG pCO2 mmHg VBG pO2 mmHg VBG HCO3 (22-26) mmol/L VBG O2 Saturation % VBG Base Excess mmol/L Sodium (135-145) mmol/L Potassium (3.3-5.1) mmol/L Chloride (96-108) mmol/L Carbon Dioxide (22-29) mmol/L Anion Gap (12-20) BUN (9-16) mg/dL Creatinine (0.5-1.4) mg/dL Estim Creat Clear Calc Estimated GFR Random Glucose (60-115) mg/dL Lactic Acid (0.5-2.0) mmol/L Calcium (8.4-10.2) mg/dL Magnesium (1.6-2.6) mg/dL Total Bilirubin (0.0-1.0) mg/dL Direct Bilirubin (0.0-0.5) mg/dL AST (5-31) U/L ALT (0-31) U/L Alkaline Phosphatase (39-117) U/L Troponin I High Sens (<3.5-17.0) ng/L Total Protein (6.5-8.0) g/dL Albumin (3.5-5.0) g/dL COVID-19 (OLIVIA) Negative (Negative) COVID-19 Clin Com See Note Influenza Type A (JULITA) Negative (Negative) Influenza Type B (JULITA) Negative (Negative) Influenza A & B Note See Note ECG Data Attestation: I personally reviewed and interpreted this ECG as follows: ECG interpretation date: 07/29/21 ECG interpretation time: 12:17 Interpretation: Rate: 67 Rhythm: NSR Harbert: normal Normal P waves. Normal NANCY. Normal QRS complex. ST T wave : non-specific no [place] qTC: normal prior studies: no acute ischemia The study has been interpreted contemporaneously by me. Critical Care Time Critical Care Time Critical Care Time: Yes Total Critical Care Time: 45 Attestation: repeat hour long neb, IV steroids, IV magnesium I attest to this time spent taking care of the patient Discharge Plan Discharge Clinical Impression: Asthma Patient Disposition: Admitted As Inpatient Prescriptions: No Action Incruse Ellipta 62.5 mcg/actuation blister with device 1 inh inhalation DAILY Qty: 30 5RF albuterol sulfate [ProAir HFA] 90 mcg/actuation HFA aerosol inhaler 1 inh inhalation QID PRN (Reason: shortness of breath or wheezing) Qty: 8.5 0RF fluticasone propion-salmeterol 500-50 mcg/dose blister with device 1 inh PO BID 0RF (DME) lancets 33 gauge misc See Rx Instructions ea Not Applicable TID Qty: 100 0RF Rx Instructions: As directed calcium carbonate-vitamin D3 600 mg(1,500mg) -400 unit tablet 1 tab PO QAM 0RF fluticasone propionate 50 mcg/actuation spray,suspension 2 spray intranasal DAILY 0RF furosemide 20 mg tablet 20 mg PO QAM 0RF hydralazine 50 mg tablet 50 mg PO BID 0RF gabapentin 300 mg capsule 300 mg PO BEDTIME 0RF losartan 25 mg tablet 25 mg PO DAILY 0RF carvedilol 3.125 mg tablet 3.125 mg PO BID 0RF (DME) blood sugar diagnostic Strip See Rx Instructions ea Not Applicable TID Qty: 10 0RF Rx Instructions: As directed atorvastatin 40 mg tablet 40 mg PO BEDTIME 0RF insulin glargine 100 unit/mL (3 mL) insulin pen 10 unit subcut BEDTIME 0RF (DME) pen needle, diabetic 31 gauge x 5/16 needle See Rx Instructions ea .ROUTE .MEDSUPPLY Qty: 1200 0RF Rx Instructions: As directed fluoxetine 10 mg capsule 10 mg PO QAM 0RF aspirin 81 mg tablet,delayed release (DR/EC) 81 mg PO BEDTIME 0RF sennosides 8.6 mg tablet 17.2 mg PO DAILY 0RF docusate sodium 100 mg capsule 100 mg PO BID 0RF
[2021-07-29] MEDS: methylPREDNISolone Sod Succ 125 MG/2 ML VIAL IVPUSH (12:30)
[2021-07-29] MEDS: Magnesium Sulfate/H2O 2 GM/50 ML PIGGYBACK IV (12:30)
[2021-07-29 12:33] LABS: MANUAL DIFF FLAG NO
[2021-07-29 12:35] LABS: Basophils Percent Auto 0.4 % (0-2); Eosinophils Absolute Auto 0.8 X10*3/uL (0.0-0.4); Eosinophils Percent Auto 7.1 % (0-4); Hematocrit 38.1 % (37.0-47.0); Hemoglobin 11.8 g/dl (12.0-16.0); Imm Gran Abs Auto 0.04 X10*3/uL (0.00-0.03); Imm Gran Pct Auto 0.4 % (0.0-0.4); Lymphocytes Absolute Auto 1.9 X10*3/uL (1.2-4.9); Lymphocytes Percent Auto 16.4 % (20-40); Mean Corpuscular Hemoglobin 28.3 pg (27.0-33.0); Mean Corpuscular Volume 91.4 fL (80.0-98.0); Mean Platelet Volume 11.7 fL (9.4-12.3); Monocytes Absolute Auto 1.4 X10*3/uL (0.1-1.2); Monocytes Percent Auto 12.3 % (2-11); Neutrophils Absolute Auto 7.2 x10*3/uL (2.0-8.3); Neutrophils Percent Auto 63.4 % (45-73); Platelet Count 221 X10*3/uL (160-400); Red Blood Count 4.17 X10*6/uL (4.20-5.50); Red Cell Distribution Width 13.6 % (11.0-16.0); White Blood Count 11.3 X10*3/uL (4.8-10.8)
[2021-07-29 12:38] LABS: VBG Base Excess 3.6 mmol/L; VBG HCO3 28 mmol/L (22-26); VBG pCO2 42 mmHg; VBG pH 7.43 (7.32-7.43); VBG pO2 36 mmHg
[2021-07-29 12:40] LABS: Venous Blood Gas Refer to POC result
[2021-07-29 12:46] LABS: Prothrombin Time 11.1 SEC (9.9-13.0)
[2021-07-29 12:59] LABS: Alanine Aminotransferase 26 U/L (0-31); Albumin Level 3.8 g/dL (3.5-5.0); Alkaline Phosphatase 96 U/L (39-117); Anion Gap 16 (12-20); Aspartate Amino Transferase 26 U/L (5-31); Bilirubin Direct 0.2 mg/dL (0.0-0.5); Bilirubin Total 0.6 mg/dL (0.0-1.0); Blood Urea Nitrogen 14 mg/dL (9-16); Calcium 9.3 mg/dL (8.4-10.2); Carbon Dioxide 25 mmol/L (22-29); Chloride 103 mmol/L (96-108); Creatinine Clr Calc Pharmacy 43.6; Estimated Glomerular Filt Rate 51; Glucose Random 188 mg/dL (60-115); Magnesium 1.9 mg/dL (1.6-2.6); Potassium 4.6 mmol/L (3.3-5.1); Sodium 139 mmol/L (135-145); Total Protein 6.9 g/dL (6.5-8.0)
[2021-07-29 13:02] LABS: Troponin-I High Sensitivity 6.9 ng/L (<3.5-17.0)
[2021-07-29 13:08] LABS: IDNOW Serial# 16C4AD1C; Influenza A Negative (Negative); Influenza B2 Negative (Negative)
[2021-07-29 13:08] LABS: COVID-19 Test Negative (Negative)
[2021-07-29 13:19] VITALS: PULSE 72; RESP 18; O2SAT 97
[2021-07-29] MEDS: Albuterol Sulfate (0.083%) 2.5 MG/3 ML VIAL.NEB 5 MG INHALE (13:19)
--- NOTE | 2021-07-29 14:00 | PM.IMHP ---
History of Present Illness Date of Service: 07/29/21 Chief Complaint: sob 75f presented with sob. Patient was recently discharged 07/15/2021 after hospitalization for dizziness complicated by asthma exacerbation. Patient states she was feeling well on day of discharge, but then several days later started having progressive shortness of breath. Worse on exertion, associated with subjective fevers, she states that her daughter has a viral illness. Shortness of breath continued to worsen to the point on day of admission she came to the hospital. In ED patient was very wheezy and found to be hypoxic, 88% on room air. chest x-ray was unremarkable. Review of Systems Review of Systems: Constitutional:subjective fever Eyes: denies blurry vision ENT: denies sore throat CVS: denies chest pain Respiratory: dyspnea GI: no abdominal pain : denies dysuria MSK: denies neck pain Skin: denies rash Neuro: denies specific motor weakness Psych: denies suicidal ideation Endocrine: denies heat/cold intolerance Hematologic: denies easy bleeding Allergy: denies hives [facility] Medical History Allergic rhinitis Asthma Asthma CAD (coronary artery disease) COPD (chronic obstructive pulmonary disease) COPD exacerbation Cough Diabetes Hypertension Surgical History History of hysterectomy Hx of CABG Social History Household Members: Family Housing: Assisted Living Facility Do you presently have visiting nurse or other home services: Yes ([facility] and [facility]) Alcohol intake: never Patient Tobacco Use Status: Never used Tobacco Advance Directives: No Advance Directives Information Provided: Yes service: No Current occupational status: unemployed Meds Allergies Allergy/AdvReac Type Severity Reaction Status Date / Time No Known Allergies Allergy Verified 07/29/21 12:07 [No Known Allergies*] Active Medications: Current Medications Acetaminophen (Acetaminophen 325 Mg Tablet) 650 mg PO Q6H PRN PRN Reason: Pain, Mild (Pain Scale 1-3) Albuterol/Ipratropium (Albuterol/Iprat 2.5/0.5mg 3 Ml Ampul.Neb) 3 ml INHALE RQ4H WHILE AWAKE [facility] Dextrose (Dextrose 50 % 25 Gm/50 Ml Syringe) 25 gm IVPUSH Q15M PRN; Protocol PRN Reason: per Hypoglycemia Standing Ord. Enoxaparin Sodium (Enoxaparin Sodium 40 Mg/0.4 Ml Syringe) 40 mg SUBCUT Q24H [facility] Glucose (Glucose Gel 15 Gm Gel..Gram.) 15 gm PO Q15M PRN; Protocol PRN Reason: per Hypoglycemia Standing Ord. Insulin Human Lispro (Insulin Lispro 100 Unit/Ml 3 Ml Vial) 0 unit SUBCUT QIDACHS [facility]; Protocol Methylprednisolone Sodium Succinate (Methylprednisolone Sod Succ 125 Mg/2 Ml Vial) 60 mg IVPUSH Q12H [facility] Pharmacy Consult (Consult Rx Perform Med Rec) 1 each MISCELLANE ONCE PRN PRN Reason: Consult order Sodium Chloride (0.9 % Sodium Chloride Flush 3 Ml Syringe) 3 ml IVFLUSH QSHIFT [facility] Home Medications Medication Instructions Recorded Confirmed Last Taken Type atorvastatin 40 mg tablet 40 mg PO BEDTIME 12/17/19 07/29/21 07/29/21 History blood sugar diagnostic #10 ea 12/17/19 03/07/21 Unknown History calcium carbonate 600 mg-vitamin 1 tab PO DAILY 12/17/19 07/29/21 07/29/21 History D3 10 mcg (400 unit) tablet carvedilol 3.125 mg tablet 3.125 mg PO BID 12/17/19 07/29/21 07/29/21 History fluoxetine 10 mg capsule 10 mg PO DAILY 12/17/19 07/29/21 07/29/21 History fluticasone propionate 50 2 spray INTRANASAL DAILY 12/17/19 07/29/21 07/29/21 History mcg/actuation nasal spray,suspension furosemide 20 mg tablet 20 mg PO DAILY 12/17/19 07/29/21 07/29/21 History gabapentin 300 mg capsule 300 mg PO BEDTIME 12/17/19 07/29/21 07/29/21 History hydralazine 50 mg tablet 50 mg PO TID 12/17/19 07/29/21 07/29/21 History insulin glargine 100 unit/mL (3 10 unit SUBCUT BEDTIME 12/17/19 07/29/21 07/29/21 History mL) subcutaneous pen lancets 33 gauge #100 ea 12/17/19 07/29/21 History losartan 25 mg tablet 25 mg PO DAILY 12/17/19 07/29/21 07/29/21 History pen needle, diabetic 31 gauge x #1200 ea 12/17/19 07/29/21 History 5/16 aspirin 81 mg tablet,delayed 81 mg PO BEDTIME 01/07/20 07/29/21 07/29/21 History release docusate sodium 100 mg capsule 100 mg PO BID 01/07/20 07/29/21 07/29/21 History sennosides 8.6 mg tablet 17.2 mg PO DAILY PRN 01/07/20 07/29/21 07/29/21 History fluticasone 500 mcg-salmeterol 50 1 inh PO BID 07/14/21 07/29/21 07/29/21 History mcg/dose blistr powdr for inhalation albuterol sulfate 1 amp INHALATION TID PRN 07/29/21 07/29/21 07/29/21 History albuterol sulfate 90 mcg/actuation 2 puff INHALATION Q4H PRN 07/29/21 07/29/21 07/29/21 History aerosol inhaler (Ventolin HFA) Physical Exam Vital Signs and Narrative: Vital Signs: Last Vital Signs Temp 97.8 F 07/29/21 12:04 Pulse 72 07/29/21 13:19 Resp 18 07/29/21 13:19 BP 135/86 07/29/21 12:04 Pulse Ox 99 07/29/21 12:04 Oxygen Flow Rate 2 07/29/21 12:04 BMI result Body Mass Index 26.0 General: Dyspnea, tachypneic, unable to talk full sentences HEENT: atraumatic Neck: normal to visual inspection CVS: S1, S2, RRR Resp: wheezing bilaterally, using accessory muscles Chest: non tender GI: soft, non tender, non distended : no CVA tenderness Skin: no rashes Extremities: no edema Neuro: Oriented X3, grossly intact Psych: cooperative Results Labs CBC and Chem 7: 07/29/21 12:28 07/29/21 12:28 Labs: Laboratory Results - last 24 hr 07/29/21 07/29/21 07/29/21 12:27 12:28 12:28 MCV 91.4 MCH 28.3 MCHC 31.0 RDW 13.6 Plt Count 221 MPV 11.7 Immature Gran % (Auto) 0.4 Neut % (Auto) 63.4 Lymph % (Auto) 16.4 L [place] % (Auto) 12.3 H Eos % (Auto) 7.1 H Baso % (Auto) 0.4 Lymph # (Auto) 1.9 [place] # (Auto) 1.4 H Eos # (Auto) 0.8 H Baso # (Auto) 0.0 Abs Immat Gran (auto) 0.04 H Absolute Neuts (auto) 7.2 Absolute Nucleated RBC 0.000 Nucleated RBC % (auto) 0.0 PT INR VBG pH VBG pCO2 VBG pO2 VBG HCO3 VBG O2 Saturation VBG Base Excess Anion Gap 16 Estim Creat Clear Calc 43.6 Estimated GFR 51 Random Glucose 188 H Lactic Acid Calcium 9.3 D Magnesium 1.9 Total Bilirubin 0.6 Direct Bilirubin 0.2 AST 26 D ALT 26 Alkaline Phosphatase 96 Troponin I High Sens 6.9 Total Protein 6.9 Albumin 3.8 COVID-19 (OLIVIA) COVID-19 Clin Com Influenza Type A (JULITA) Influenza Type B (JULITA) Influenza A & B Note 07/29/21 07/29/21 07/29/21 12:28 12:28 12:29 MCV MCH MCHC RDW Plt Count MPV Immature Gran % (Auto) Neut % (Auto) Lymph % (Auto) [place] % (Auto) Eos % (Auto) Baso % (Auto) Lymph # (Auto) [place] # (Auto) Eos # (Auto) Baso # (Auto) Abs Immat Gran (auto) Absolute Neuts (auto) Absolute Nucleated RBC Nucleated RBC % (auto) PT 11.1 INR 1.0 VBG pH 7.43 VBG pCO2 42 VBG pO2 36 VBG HCO3 28 H VBG O2 Saturation 55.0 VBG Base Excess 3.6 Anion Gap Estim Creat Clear Calc Estimated GFR Random Glucose Lactic Acid 1.0 Calcium Magnesium Total Bilirubin Direct Bilirubin AST ALT Alkaline Phosphatase Troponin I High Sens Total Protein Albumin COVID-19 (OLIVIA) COVID-19 Clin Com Influenza Type A (JULITA) Influenza Type B (JULITA) Influenza A & B Note 07/29/21 07/29/21 12:36 12:39 MCV MCH MCHC RDW Plt Count MPV Immature Gran % (Auto) Neut % (Auto) Lymph % (Auto) [place] % (Auto) Eos % (Auto) Baso % (Auto) Lymph # (Auto) [place] # (Auto) Eos # (Auto) Baso # (Auto) Abs Immat Gran (auto) Absolute Neuts (auto) Absolute Nucleated RBC Nucleated RBC % (auto) PT INR VBG pH VBG pCO2 VBG pO2 VBG HCO3 VBG O2 Saturation VBG Base Excess Anion Gap Estim Creat Clear Calc Estimated GFR Random Glucose Lactic Acid Calcium Magnesium Total Bilirubin Direct Bilirubin AST ALT Alkaline Phosphatase Troponin I High Sens Total Protein Albumin COVID-19 (OLIVIA) Negative COVID-19 Clin Com See Note Influenza Type A (JULITA) Negative Influenza Type B (JULITA) Negative Influenza A & B Note See Note Imaging Radiologist's Impressions: Impressions Chest X-Ray 07/29/21 12:47 IMPRESSION: Unremarkable chest exam. Assessment and Plan (1) Asthma: Qualifiers: Asthma complication type: with acute exacerbation Asthma persistence: persistent Asthma severity: moderate Qualified Code(s): J45.41 - Moderate persistent asthma with (acute) exacerbation Status: Acute Plan 75F presented with sob acute hypoxic respiratory failure secondary to moderate persistent asthma and COPD with acute decompensation wean O2 as tolerated IV Solu-Medrol DuoNebs chronic diastolic CHF/pulmonary hypertension does not appear to be fluid overloaded, continue maintenance Lasix p.o. history of CVA aspirin statin diabetes basal bolus insulin, monitor point of cares hypertension continue losartan, hydralazine, carvedilol mood disorder continue fluoxetine coronary disease status post CABG in 2010 continue aspirin and statin DVT prophylaxis with Lovenox full code patient with hypoxia, visibly dyspneic and risk factors of diabetes, COPD, coronary disease, therefore likely to require at least 2 midnights in the hospital. Quality Stroke Does the patient have a stroke diagnosis?: No VTE Prior VTE?: No VTE Risk Level:: Medical - moderate - high VTE Device Contraindication: Treatment Not Indicated VTE Drug Contraindication: N/A - Med Ordered
[2021-07-29] MEDS: Enoxaparin Sodium 40 MG/0.4 ML SYRINGE SUBCUT (14:39)
[2021-07-29] MEDS: FLUoxetine HCl 10 MG CAPSULE PO (14:39)
[2021-07-29] MEDS: hydrALAZINE HCl 50 MG TABLET PO ×2 (14:39→22:12)
[2021-07-29 15:34] VITALS: BP 119/57; PULSE 80; RESP 16; TEMP 37.2; O2SAT 98
[2021-07-29 16:36] LABS: Glucose, Whole Blood 317 mg/dL (60-115)
[2021-07-29] MEDS: Insulin Lispro 100 UNIT/ML 3 ML VIAL SUBCUT ×2 (16:41→22:13)
[2021-07-29 17:47] LABS: Glucose, Whole Blood 326 mg/dL (60-115)
[2021-07-29 19:50] VITALS: PULSE 84; RESP 16; O2SAT 97
[2021-07-29] MEDS: Albuterol/Iprat 2.5/0.5MG 3 ML AMPUL.NEB INHALE (19:50)
--- NOTE | 2021-07-29 21:18 | PC.NURSE ---
This RN did not see this PT, This RN in RM 4 with Cardiac Arrest.
[2021-07-29 21:41] LABS: Glucose, Whole Blood 398 mg/dL (60-115)
[2021-07-29] MEDS: methylPREDNISolone Sod Succ 125 MG/2 ML VIAL 60 MG IVPUSH (22:10)
[2021-07-29] MEDS: Aspirin Enteric Coated 81 MG TABLET.DR PO (22:12)
[2021-07-29] MEDS: carvediloL 3.125 MG TABLET PO (22:12)
[2021-07-29] MEDS: Gabapentin 300 MG CAPSULE PO (22:12)
[2021-07-29] MEDS: Atorvastatin Calcium 40 MG TABLET PO (22:12)
[2021-07-29] MEDS: Docusate Sodium 100 MG CAPSULE PO (22:12)
[2021-07-29] MEDS: Insulin Glargine,Hum.rec.anlog 100 UNIT/ML 10 ML VIAL 10 UNIT SUBCUT (22:13)
[2021-07-29] MEDS: 0.9 % Sodium Chloride Flush 3 ML SYRINGE IVFLUSH (22:20)
[2021-07-30] VITALS (11 sets, daily range): BP systolic 112–124; BP diastolic 55–65; PULSE 70–84; RESP 16–20; TEMP 35.9–36.8; O2SAT 95–99
[2021-07-30 06:22] LABS: Hematocrit 35.8 % (37.0-47.0); Hemoglobin 11.3 g/dl (12.0-16.0); Mean Corpuscular HGB Conc 31.6 g/dl (31.0-35.0); Mean Corpuscular Hemoglobin 28.3 pg (27.0-33.0); Mean Corpuscular Volume 89.7 fL (80.0-98.0); Mean Platelet Volume 11.7 fL (9.4-12.3); Platelet Count 219 X10*3/uL (160-400); Red Blood Count 3.99 X10*6/uL (4.20-5.50); Red Cell Distribution Width 13.3 % (11.0-16.0); White Blood Count 12.9 X10*3/uL (4.8-10.8)
[2021-07-30 06:39] LABS: Anion Gap 13 (12-20); Blood Urea Nitrogen 23 mg/dL (9-16); Calcium 8.8 mg/dL (8.4-10.2); Carbon Dioxide 25 mmol/L (22-29); Chloride 103 mmol/L (96-108); Estimated Glomerular Filt Rate 47; Glucose Fasting 344 mg/dL (60-99); Sodium 136 mmol/L (135-145)
[2021-07-30 07:35] LABS: Glucose, Whole Blood 299 mg/dL (60-115)
[2021-07-30] MEDS: Insulin Lispro 100 UNIT/ML 3 ML VIAL SUBCUT ×4 (08:07→20:42)
[2021-07-30] MEDS: Docusate Sodium 100 MG CAPSULE PO ×2 (08:07→20:42)
[2021-07-30] MEDS: FLUoxetine HCl 10 MG CAPSULE PO (08:07)
[2021-07-30] MEDS: Furosemide 20 MG TABLET PO (08:07)
[2021-07-30] MEDS: carvediloL 3.125 MG TABLET PO ×2 (08:07→20:42)
[2021-07-30] MEDS: hydrALAZINE HCl 50 MG TABLET PO ×3 (08:07→20:41)
[2021-07-30] MEDS: Calcium + Vitamin D 250 MG TABLET 500 MG PO (08:07)
[2021-07-30] MEDS: Losartan Potassium 25 MG TABLET PO (08:07)
[2021-07-30] MEDS: 0.9 % Sodium Chloride Flush 3 ML SYRINGE IVFLUSH ×2 (08:08→15:13)
[2021-07-30] MEDS: Albuterol/Iprat 2.5/0.5MG 3 ML AMPUL.NEB INHALE ×4 (08:37→19:32)
[2021-07-30] MEDS: Fluticasone/Vilanterol 200/25 BLST.W.DEV 1 PUFF INHALE (08:55)
--- NOTE | 2021-07-30 10:00 | P.PNIM_ITS ---
Subjective Subjective Date of Service: 07/30/21 Interval History: cc: sob interval history: still sob Cardiovascular Cardiovascular: Reports no additional cardiovascular complaints Gastrointestinal Gastrointestinal: Reports no additional gastrointestinal complaints Physical Exam Vital Signs: Vital Signs: Last Vital Signs Temp 97.5 F 07/30/21 07:53 Pulse 76 07/30/21 08:39 Resp 20 07/30/21 08:39 BP 123/58 L 07/30/21 07:53 Pulse Ox 95 07/30/21 07:53 Oxygen Flow Rate 2 07/29/21 12:04 BMI result Body Mass Index 26.0 General: AO X 3, no acute distress Resp: wheezes bilateral, no accessory muscles used CVS: S1,S2,RRR GI: soft, non tender, non distended Neuro: motor grossly intact, alert Psych: appropriate affect, appropriate insight Objective Data Active Medications Acetaminophen (Acetaminophen 325 Mg Tablet) 650 mg PO Q6H PRN PRN Reason: Pain, Mild (Pain Scale 1-3) Albuterol/Ipratropium (Albuterol/Iprat 2.5/0.5mg 3 Ml Ampul.Neb) 3 ml INHALE RQ4H WHILE AWAKE [facility] Last Admin: 07/30/21 08:37 Dose: 3 ml Documented by: KASH Aspirin (Aspirin Enteric Coated 81 Mg Tablet.) 81 mg PO BEDTIME [facility] Last Admin: 07/29/21 22:12 Dose: 81 mg Documented by: JIMENEZ Atorvastatin Calcium (Atorvastatin Calcium 40 Mg Tablet) 40 mg PO BEDTIME [facility] Last Admin: 07/29/21 22:12 Dose: 40 mg Documented by: JIMENEZ Calcium Carbonate/Cholecalciferol (Calcium + Vitamin D 250 Mg Tablet) 500 mg PO DAILY [facility] Last Admin: 07/30/21 08:07 Dose: 500 mg Documented by: ALEXIA Carvedilol (Carvedilol 3.125 Mg Tablet) 3.125 mg PO BID [facility]; Protocol Last Admin: 07/30/21 08:07 Dose: 3.125 mg Documented by: ALEXIA Dextrose (Dextrose 50 % 25 Gm/50 Ml Syringe) 25 gm IVPUSH Q15M PRN; Protocol PRN Reason: per Hypoglycemia Standing Ord. Docusate Sodium (Docusate Sodium 100 Mg Capsule) 100 mg PO BID [facility] Last Admin: 07/30/21 08:07 Dose: 100 mg Documented by: ALEXIA Enoxaparin Sodium (Enoxaparin Sodium 40 Mg/0.4 Ml Syringe) 40 mg SUBCUT Q24H [facility] Last Admin: 07/29/21 14:39 Dose: 40 mg Documented by: LALITHA Fluoxetine HCl (Fluoxetine Hcl 10 Mg Capsule) 10 mg PO DAILY [facility] Last Admin: 07/30/21 08:07 Dose: 10 mg Documented by: ALEXIA Fluticasone Propionate (Fluticasone Propionate Nasal 16 Gm [place]) 2 spray NOSTRIL-B DAILY [facility] Fluticasone/Vilanterol (Fluticasone/Vilanterol 200/25 Blst.W.Dev) 1 puff INHALE RDAILY [facility] Last Admin: 07/30/21 08:55 Dose: 1 puff Documented by: KASH Furosemide (Furosemide 20 Mg Tablet) 20 mg PO DAILY [facility]; Protocol Last Admin: 07/30/21 08:07 Dose: 20 mg Documented by: ALEXIA Gabapentin (Gabapentin 300 Mg Capsule) 300 mg PO BEDTIME [facility] Last Admin: 07/29/21 22:12 Dose: 300 mg Documented by: JIMENEZ Glucose (Glucose Gel 15 Gm Gel..Gram.) 15 gm PO Q15M PRN; Protocol PRN Reason: per Hypoglycemia Standing Ord. Hydralazine HCl (Hydralazine Hcl 50 Mg Tablet) 50 mg PO TID [facility]; Protocol Last Admin: 07/30/21 08:07 Dose: 50 mg Documented by: ALEXIA Insulin Glargine (Insulin Glargine,Hum.Rec.Anlog 100 Unit/Ml 10 Ml Vial) 10 unit SUBCUT BEDTIME [facility] Last Admin: 07/29/21 22:13 Dose: 10 unit Documented by: JIMENEZ Insulin Human Lispro (Insulin Lispro 100 Unit/Ml 3 Ml Vial) 0 unit SUBCUT QIDACHS [facility]; Protocol Last Admin: 07/30/21 08:07 Dose: 6 unit Documented by: ALEXIA Losartan Potassium (Losartan Potassium 25 Mg Tablet) 25 mg PO DAILY [facility]; Protocol Last Admin: 07/30/21 08:07 Dose: 25 mg Documented by: ALEXIA Methylprednisolone Sodium Succinate (Methylprednisolone Sod Succ 125 Mg/2 Ml Vial) 60 mg IVPUSH Q12H [facility] Last Admin: 07/29/21 22:10 Dose: 60 mg Documented by: JIMENEZ Non-Formulary Medication (Umeclidinium [Incruse Ellipta]) 1 inhalation INHALE DAILY [facility] Pharmacy Consult (Consult Rx Perform Med Rec) 1 each MISCELLANE ONCE PRN PRN Reason: Consult order Senna (Sennosides 8.6 Mg Tablet) 17.2 mg PO DAILY PRN PRN Reason: Constipation Sodium Chloride (0.9 % Sodium Chloride Flush 3 Ml Syringe) 3 ml IVFLUSH QSHIFT [facility] Last Admin: 07/30/21 08:08 Dose: 3 ml Documented by: ALEXIA Labs CBC & Chem 7: 07/30/21 05:54 07/30/21 05:54 Labs: Laboratory Results - last 24 hr 07/29/21 07/29/21 07/29/21 12:27 12:28 12:28 MCV 91.4 MCH 28.3 MCHC 31.0 RDW 13.6 Plt Count 221 MPV 11.7 Immature Gran % (Auto) 0.4 Neut % (Auto) 63.4 Lymph % (Auto) 16.4 L [place] % (Auto) 12.3 H Eos % (Auto) 7.1 H Baso % (Auto) 0.4 Lymph # (Auto) 1.9 [place] # (Auto) 1.4 H Eos # (Auto) 0.8 H Baso # (Auto) 0.0 Abs Immat Gran (auto) 0.04 H Absolute Neuts (auto) 7.2 Absolute Nucleated RBC 0.000 Nucleated RBC % (auto) 0.0 PT INR VBG pH VBG pCO2 VBG pO2 VBG HCO3 VBG O2 Saturation VBG Base Excess Anion Gap 16 Estim Creat Clear Calc 43.6 Estimated GFR 51 POC Glucose Random Glucose 188 H Fasting Glucose Lactic Acid Calcium 9.3 D Magnesium 1.9 Total Bilirubin 0.6 Direct Bilirubin 0.2 AST 26 D ALT 26 Alkaline Phosphatase 96 Troponin I High Sens 6.9 Total Protein 6.9 Albumin 3.8 COVID-19 (OLIVIA) COVID-19 Clin Com Influenza Type A (JULITA) Influenza Type B (JULITA) Influenza A & B Note 07/29/21 07/29/21 07/29/21 12:28 12:28 12:29 MCV MCH MCHC RDW Plt Count MPV Immature Gran % (Auto) Neut % (Auto) Lymph % (Auto) [place] % (Auto) Eos % (Auto) Baso % (Auto) Lymph # (Auto) [place] # (Auto) Eos # (Auto) Baso # (Auto) Abs Immat Gran (auto) Absolute Neuts (auto) Absolute Nucleated RBC Nucleated RBC % (auto) PT 11.1 INR 1.0 VBG pH 7.43 VBG pCO2 42 VBG pO2 36 VBG HCO3 28 H VBG O2 Saturation 55.0 VBG Base Excess 3.6 Anion Gap Estim Creat Clear Calc Estimated GFR POC Glucose Random Glucose Fasting Glucose Lactic Acid 1.0 Calcium Magnesium Total Bilirubin Direct Bilirubin AST ALT Alkaline Phosphatase Troponin I High Sens Total Protein Albumin COVID-19 (OLIVIA) COVID-19 Clin Com Influenza Type A (JULITA) Influenza Type B (JULITA) Influenza A & B Note 07/29/21 07/29/21 07/29/21 12:36 12:39 16:32 MCV MCH MCHC RDW Plt Count MPV Immature Gran % (Auto) Neut % (Auto) Lymph % (Auto) [place] % (Auto) Eos % (Auto) Baso % (Auto) Lymph # (Auto) [place] # (Auto) Eos # (Auto) Baso # (Auto) Abs Immat Gran (auto) Absolute Neuts (auto) Absolute Nucleated RBC Nucleated RBC % (auto) PT INR VBG pH VBG pCO2 VBG pO2 VBG HCO3 VBG O2 Saturation VBG Base Excess Anion Gap Estim Creat Clear Calc Estimated GFR POC Glucose 317 H Random Glucose Fasting Glucose Lactic Acid Calcium Magnesium Total Bilirubin Direct Bilirubin AST ALT Alkaline Phosphatase Troponin I High Sens Total Protein Albumin COVID-19 (OLIVIA) Negative COVID-19 Clin Com See Note Influenza Type A (JULITA) Negative Influenza Type B (JULITA) Negative Influenza A & B Note See Note 07/29/21 07/29/21 07/30/21 17:40 21:35 05:54 MCV 89.7 MCH 28.3 MCHC 31.6 RDW 13.3 Plt Count 219 MPV 11.7 Immature Gran % (Auto) Neut % (Auto) Lymph % (Auto) [place] % (Auto) Eos % (Auto) Baso % (Auto) Lymph # (Auto) [place] # (Auto) Eos # (Auto) Baso # (Auto) Abs Immat Gran (auto) Absolute Neuts (auto) Absolute Nucleated RBC 0.000 Nucleated RBC % (auto) 0.0 PT INR VBG pH VBG pCO2 VBG pO2 VBG HCO3 VBG O2 Saturation VBG Base Excess Anion Gap Estim Creat Clear Calc Estimated GFR POC Glucose 326 H 398 H* Random Glucose Fasting Glucose Lactic Acid Calcium Magnesium Total Bilirubin Direct Bilirubin AST ALT Alkaline Phosphatase Troponin I High Sens Total Protein Albumin COVID-19 (OLIVIA) COVID-19 Clin Com Influenza Type A (JULITA) Influenza Type B (JULITA) Influenza A & B Note 07/30/21 07/30/21 05:54 07:27 MCV MCH MCHC RDW Plt Count MPV Immature Gran % (Auto) Neut % (Auto) Lymph % (Auto) [place] % (Auto) Eos % (Auto) Baso % (Auto) Lymph # (Auto) [place] # (Auto) Eos # (Auto) Baso # (Auto) Abs Immat Gran (auto) Absolute Neuts (auto) Absolute Nucleated RBC Nucleated RBC % (auto) PT INR VBG pH VBG pCO2 VBG pO2 VBG HCO3 VBG O2 Saturation VBG Base Excess Anion Gap 13 Estim Creat Clear Calc 41.0 Estimated GFR 47 POC Glucose 299 H Random Glucose Fasting Glucose 344 H Lactic Acid Calcium 8.8 Magnesium Total Bilirubin Direct Bilirubin AST ALT Alkaline Phosphatase Troponin I High Sens Total Protein Albumin COVID-19 (OLIVIA) COVID-19 Clin Com Influenza Type A (JULITA) Influenza Type B (JULITA) Influenza A & B Note Assessment and Plan (1) Dizziness: Status: Resolved (2) Asthma with exacerbation: Status: Resolved Plan 75F presented with sob ?acute hypoxic respiratory failure secondary to moderate persistent asthma and COPD with acute? decompensation ?still sob but improved continue to wean O2 as tolerated ?IV Solu-Medrol ?DuoNebs ?chronic diastolic CHF/pulmonary hypertension ?does not appear to be fluid overloaded, continue maintenance Lasix p.o. ?history of CVA ?aspirin statin ?diabetes ?basal bolus insulin, monitor point of cares ?hypertension ?continue losartan, hydralazine, carvedilol ?mood disorder ?continue fluoxetine ?coronary disease ?status post CABG in 2010 ?continue aspirin and statin ?DVT prophylaxis with Lovenox ?full code reason for continued hospitalization:still sob, still weaning o2 Quality Stroke Does the patient have a stroke diagnosis?: No VTE Prior VTE?: No VTE Risk Level:: Medical - moderate - high VTE Device Contraindication: Treatment Not Indicated VTE Drug Contraindication: N/A - Med Ordered
[2021-07-30] MEDS: methylPREDNISolone Sod Succ 125 MG/2 ML VIAL 60 MG IVPUSH ×2 (11:13→20:45)
[2021-07-30 11:41] LABS: Glucose, Whole Blood 332 mg/dL (60-115)
[2021-07-30] MEDS: Enoxaparin Sodium 40 MG/0.4 ML SYRINGE SUBCUT (15:10)
[2021-07-30 16:23] LABS: Glucose, Whole Blood 161 mg/dL (60-115)
[2021-07-30 20:07] LABS: Glucose, Whole Blood 271 mg/dL (60-115)
[2021-07-30] MEDS: Atorvastatin Calcium 40 MG TABLET PO (20:42)
[2021-07-30] MEDS: Aspirin Enteric Coated 81 MG TABLET.DR PO (20:42)
[2021-07-30] MEDS: Gabapentin 300 MG CAPSULE PO (20:42)
[2021-07-30] MEDS: Insulin Glargine,Hum.rec.anlog 100 UNIT/ML 10 ML VIAL 10 UNIT SUBCUT (20:44)
[2021-07-31] VITALS (11 sets, daily range): BP systolic 109–141; BP diastolic 56–73; PULSE 62–93; RESP 16–24; TEMP 36.1–36.8; O2SAT 94–99
[2021-07-31] MEDS: 0.9 % Sodium Chloride Flush 3 ML SYRINGE IVFLUSH ×3 (01:54→17:57)
[2021-07-31 06:08] LABS: Hematocrit 34.9 % (37.0-47.0); Hemoglobin 11.1 g/dl (12.0-16.0); Mean Corpuscular HGB Conc 31.8 g/dl (31.0-35.0); Mean Corpuscular Hemoglobin 28.7 pg (27.0-33.0); Mean Corpuscular Volume 90.2 fL (80.0-98.0); Mean Platelet Volume 11.9 fL (9.4-12.3); Platelet Count 232 X10*3/uL (160-400); Red Blood Count 3.87 X10*6/uL (4.20-5.50); Red Cell Distribution Width 13.4 % (11.0-16.0); White Blood Count 22.8 X10*3/uL (4.8-10.8)
[2021-07-31 06:23] LABS: Anion Gap 12 (12-20); Blood Urea Nitrogen 30 mg/dL (9-16); Calcium 8.9 mg/dL (8.4-10.2); Carbon Dioxide 30 mmol/L (22-29); Chloride 101 mmol/L (96-108); Creatinine Clr Calc Pharmacy 39.2; Estimated Glomerular Filt Rate 45; Glucose Fasting 274 mg/dL (60-99); Sodium 138 mmol/L (135-145)
[2021-07-31] MEDS: Albuterol/Iprat 2.5/0.5MG 3 ML AMPUL.NEB INHALE ×4 (07:41→20:07)
[2021-07-31] MEDS: Fluticasone/Vilanterol 200/25 BLST.W.DEV 1 PUFF INHALE (07:41)
[2021-07-31 07:48] LABS: Glucose, Whole Blood 251 mg/dL (60-115)
[2021-07-31] MEDS: methylPREDNISolone Sod Succ 125 MG/2 ML VIAL 60 MG IVPUSH ×2 (08:15→21:53)
[2021-07-31] MEDS: Insulin Lispro 100 UNIT/ML 3 ML VIAL SUBCUT ×4 (08:15→21:53)
[2021-07-31] MEDS: FLUoxetine HCl 10 MG CAPSULE PO (08:16)
[2021-07-31] MEDS: Calcium + Vitamin D 250 MG TABLET 500 MG PO (08:16)
[2021-07-31] MEDS: Docusate Sodium 100 MG CAPSULE PO ×2 (08:16→21:54)
[2021-07-31] MEDS: carvediloL 3.125 MG TABLET PO ×2 (08:17→21:54)
[2021-07-31] MEDS: hydrALAZINE HCl 50 MG TABLET PO ×3 (08:17→21:54)
[2021-07-31] MEDS: Furosemide 20 MG TABLET PO (08:17)
[2021-07-31] MEDS: Losartan Potassium 25 MG TABLET PO (08:17)
--- NOTE | 2021-07-31 09:15 | P.PNIM_ITS ---
Subjective Subjective Date of Service: 07/31/21 Interval History: cc: sob interval history: still sob Cardiovascular Cardiovascular: Reports no additional cardiovascular complaints Respiratory Respiratory: Reports no additional respiratory complaints Physical Exam Vital Signs: Vital Signs: Last Vital Signs Temp 97.5 F 07/31/21 08:00 Pulse 73 07/31/21 08:00 Resp 17 07/31/21 08:00 BP 141/73 H 07/31/21 08:00 Pulse Ox 99 07/31/21 08:00 Oxygen Flow Rate 2 07/29/21 12:04 BMI result Body Mass Index 26.0 General: AO X 3, no acute distress Resp:? wheezes bilateral, no accessory muscles used CVS: S1,S2,RRR GI: soft, non tender, non distended Neuro:? motor grossly intact, alert Psych: appropriate affect, appropriate insight? Objective Data Active Medications Acetaminophen (Acetaminophen 325 Mg Tablet) 650 mg PO Q6H PRN PRN Reason: Pain, Mild (Pain Scale 1-3) Albuterol/Ipratropium (Albuterol/Iprat 2.5/0.5mg 3 Ml Ampul.Neb) 3 ml INHALE RQ4H WHILE AWAKE [facility] Last Admin: 07/31/21 07:41 Dose: 3 ml Documented by: KASH Aspirin (Aspirin Enteric Coated 81 Mg Tablet.) 81 mg PO BEDTIME [facility] Last Admin: 07/30/21 20:42 Dose: 81 mg Documented by: SUDEEP Atorvastatin Calcium (Atorvastatin Calcium 40 Mg Tablet) 40 mg PO BEDTIME [facility] Last Admin: 07/30/21 20:42 Dose: 40 mg Documented by: SUDEEP Calcium Carbonate/Cholecalciferol (Calcium + Vitamin D 250 Mg Tablet) 500 mg PO DAILY [facility] Last Admin: 07/31/21 08:16 Dose: 500 mg Documented by: ALEXIA Carvedilol (Carvedilol 3.125 Mg Tablet) 3.125 mg PO BID [facility]; Protocol Last Admin: 07/31/21 08:17 Dose: 3.125 mg Documented by: ALEXIA Dextrose (Dextrose 50 % 25 Gm/50 Ml Syringe) 25 gm IVPUSH Q15M PRN; Protocol PRN Reason: per Hypoglycemia Standing Ord. Docusate Sodium (Docusate Sodium 100 Mg Capsule) 100 mg PO BID [facility] Last Admin: 07/31/21 08:16 Dose: 100 mg Documented by: ALEXIA Enoxaparin Sodium (Enoxaparin Sodium 40 Mg/0.4 Ml Syringe) 40 mg SUBCUT Q24H [facility] Last Admin: 07/30/21 15:10 Dose: 40 mg Documented by: ALEXIA Fluoxetine HCl (Fluoxetine Hcl 10 Mg Capsule) 10 mg PO DAILY [facility] Last Admin: 07/31/21 08:16 Dose: 10 mg Documented by: ALEXIA Fluticasone Propionate (Fluticasone Propionate Nasal 16 Gm [place]) 2 spray NOSTRIL-B DAILY [facility] Last Admin: 07/31/21 08:19 Dose: Not Given Documented by: ALEXIA Non-Admin Reason: Med Not Available Fluticasone/Vilanterol (Fluticasone/Vilanterol 200/25 Blst.W.Dev) 1 puff INHALE RDAILY [facility] Last Admin: 07/31/21 07:41 Dose: 1 puff Documented by: KASH Furosemide (Furosemide 20 Mg Tablet) 20 mg PO DAILY [facility]; Protocol Last Admin: 07/31/21 08:17 Dose: 20 mg Documented by: ALEXIA Gabapentin (Gabapentin 300 Mg Capsule) 300 mg PO BEDTIME [facility] Last Admin: 07/30/21 20:42 Dose: 300 mg Documented by: SUDEEP Glucose (Glucose Gel 15 Gm Gel..Gram.) 15 gm PO Q15M PRN; Protocol PRN Reason: per Hypoglycemia Standing Ord. Hydralazine HCl (Hydralazine Hcl 50 Mg Tablet) 50 mg PO TID [facility]; Protocol Last Admin: 07/31/21 08:17 Dose: 50 mg Documented by: ALEXIA Insulin Glargine (Insulin Glargine,Hum.Rec.Anlog 100 Unit/Ml 10 Ml Vial) 10 unit SUBCUT BEDTIME [facility] Last Admin: 07/30/21 20:44 Dose: 10 unit Documented by: SUDEEP Insulin Human Lispro (Insulin Lispro 100 Unit/Ml 3 Ml Vial) 0 unit SUBCUT QIDACHS [facility]; Protocol Last Admin: 07/31/21 08:15 Dose: 6 unit Documented by: ALEXIA Losartan Potassium (Losartan Potassium 25 Mg Tablet) 25 mg PO DAILY [facility]; Protocol Last Admin: 07/31/21 08:17 Dose: 25 mg Documented by: ALEXIA Methylprednisolone Sodium Succinate (Methylprednisolone Sod Succ 125 Mg/2 Ml Vial) 60 mg IVPUSH Q12H [facility] Last Admin: 07/31/21 08:15 Dose: 60 mg Documented by: ALEXIA Non-Formulary Medication (Umeclidinium [Incruse Ellipta]) 1 inhalation INHALE DAILY [facility] Pharmacy Consult (Consult Rx Perform Med Rec) 1 each MISCELLANE ONCE PRN PRN Reason: Consult order Senna (Sennosides 8.6 Mg Tablet) 17.2 mg PO DAILY PRN PRN Reason: Constipation Sodium Chloride (0.9 % Sodium Chloride Flush 3 Ml Syringe) 3 ml IVFLUSH QSHIFT [facility] Last Admin: 07/31/21 08:16 Dose: 3 ml Documented by: ALEXIA Labs CBC & Chem 7: 07/31/21 05:34 07/31/21 05:34 Labs: Laboratory Results - last 24 hr 07/30/21 07/30/21 07/30/21 11:35 15:16 19:21 MCV MCH MCHC RDW Plt Count MPV Absolute Nucleated RBC Nucleated RBC % (auto) Anion Gap Estim Creat Clear Calc Estimated GFR POC Glucose 332 H 161 H 271 H Fasting Glucose Calcium 07/31/21 07/31/21 07/31/21 05:34 05:34 07:34 MCV 90.2 MCH 28.7 MCHC 31.8 RDW 13.4 Plt Count 232 MPV 11.9 Absolute Nucleated RBC 0.000 Nucleated RBC % (auto) 0.0 Anion Gap 12 Estim Creat Clear Calc 39.2 Estimated GFR 45 POC Glucose 251 H Fasting Glucose 274 H Calcium 8.9 Microbiology Microbiology Results: Microbiology 07/29/21 12:39 Blood Culture - Preliminary Blood - Venous No growth after 24 hours. 07/29/21 12:39 Blood Culture - Preliminary Blood - Venous No growth after 24 hours. Assessment and Plan (1) Dizziness: Status: Resolved (2) Asthma with exacerbation: Status: Resolved Plan 75F presented with sob ?acute hypoxic respiratory failure secondary to moderate persistent asthma and COPD with acute? decompensation ?still sob but improved continue to wean O2 as tolerated, ?IV Solu-Medrol today, will transition to po tomorrow ?DuoNebs ?chronic diastolic CHF/pulmonary hypertension ?does not appear to be fluid overloaded, continue maintenance Lasix p.o. ?history of CVA ?continue aspirin statin ?diabetes ?basal bolus insulin, monitor point of cares ?hypertension ?continue losartan, hydralazine, carvedilol ?mood disorder ?continue fluoxetine ?coronary disease ?status post CABG in 2010 ?continue aspirin and statin ?DVT prophylaxis with Lovenox ?full code reason for continued hospitalization:still sob, still weaning o2 Quality Stroke Does the patient have a stroke diagnosis?: No VTE Prior VTE?: No VTE Risk Level:: Medical - moderate - high VTE Device Contraindication: Treatment Not Indicated VTE Drug Contraindication: N/A - Med Ordered
[2021-07-31] MEDS: Furosemide 40 MG/4 ML VIAL IVPUSH (12:03)
[2021-07-31 12:13] LABS: Glucose, Whole Blood 373 mg/dL (60-115)
[2021-07-31] MEDS: Enoxaparin Sodium 40 MG/0.4 ML SYRINGE SUBCUT (14:28)
--- NOTE | 2021-07-31 16:11 | MHC.CM.PN ---
Addendum entered by Cecilia Addison 07/31/21 16:13: PT IS COVID-19 VACCINATED X 2 WITH PFIZER Original Note: PT LIVES AT HOME WITH HER GRAND DAUGHTER PT HAS DAILY [facility] AND NO OTHER SERVICES PT HAS A HPC ON FILE NAMING HER DAUGHTER, PORTIA [phone] HER PRIMARY AGENT PCP: MONI HENDERSON CURRENT DC PLAN IS HOME WITH RESUMPTION OF [facility] FAMILY TO TRANSPORT
[2021-07-31 17:03] LABS: Glucose, Whole Blood 235 mg/dL (60-115)
[2021-07-31 20:22] LABS: Glucose, Whole Blood 223 mg/dL (60-115)
[2021-07-31] MEDS: Insulin Glargine,Hum.rec.anlog 100 UNIT/ML 10 ML VIAL 10 UNIT SUBCUT (21:53)
[2021-07-31] MEDS: Gabapentin 300 MG CAPSULE PO (21:54)
[2021-07-31] MEDS: Aspirin Enteric Coated 81 MG TABLET.DR PO (21:54)
[2021-07-31] MEDS: Atorvastatin Calcium 40 MG TABLET PO (21:54)
[2021-08-01] VITALS (10 sets, daily range): BP systolic 129–153; BP diastolic 45–69; PULSE 62–87; RESP 16–20; TEMP 36–36.9; O2SAT 91–99
[2021-08-01] MEDS: 0.9 % Sodium Chloride Flush 3 ML SYRINGE IVFLUSH ×3 (00:26→16:48)
[2021-08-01 05:50] LABS: Hematocrit 35.9 % (37.0-47.0); Hemoglobin 11.4 g/dl (12.0-16.0); Mean Corpuscular HGB Conc 31.8 g/dl (31.0-35.0); Mean Corpuscular Hemoglobin 28.4 pg (27.0-33.0); Mean Corpuscular Volume 89.3 fL (80.0-98.0); Mean Platelet Volume 11.8 fL (9.4-12.3); Platelet Count 250 X10*3/uL (160-400); Red Blood Count 4.02 X10*6/uL (4.20-5.50); Red Cell Distribution Width 13.3 % (11.0-16.0); White Blood Count 23.1 X10*3/uL (4.8-10.8)
[2021-08-01 06:07] LABS: Anion Gap 12 (12-20); Blood Urea Nitrogen 35 mg/dL (9-16); Calcium 8.8 mg/dL (8.4-10.2); Carbon Dioxide 33 mmol/L (22-29); Chloride 98 mmol/L (96-108); Creatinine Clr Calc Pharmacy 39.5; Estimated Glomerular Filt Rate 45; Glucose Fasting 196 mg/dL (60-99); Potassium 4.6 mmol/L (3.3-5.1); Sodium 138 mmol/L (135-145)
[2021-08-01] MEDS: Fluticasone/Vilanterol 200/25 BLST.W.DEV 1 PUFF INHALE (07:32)
[2021-08-01] MEDS: Albuterol/Iprat 2.5/0.5MG 3 ML AMPUL.NEB INHALE ×4 (07:32→20:33)
[2021-08-01 07:58] LABS: Glucose, Whole Blood 213 mg/dL (60-115)
[2021-08-01] MEDS: carvediloL 3.125 MG TABLET PO ×2 (08:17→20:47)
[2021-08-01] MEDS: FLUoxetine HCl 10 MG CAPSULE PO (08:18)
[2021-08-01] MEDS: Furosemide 20 MG TABLET PO (08:18)
[2021-08-01] MEDS: Docusate Sodium 100 MG CAPSULE PO ×2 (08:18→20:46)
[2021-08-01] MEDS: Insulin Lispro 100 UNIT/ML 3 ML VIAL SUBCUT ×4 (08:18→20:47)
[2021-08-01] MEDS: hydrALAZINE HCl 50 MG TABLET PO ×3 (08:18→20:47)
[2021-08-01] MEDS: Calcium + Vitamin D 250 MG TABLET 500 MG PO (08:18)
[2021-08-01] MEDS: Losartan Potassium 25 MG TABLET PO (08:26)
[2021-08-01 11:42] LABS: Glucose, Whole Blood 265 mg/dL (60-115)
[2021-08-01] MEDS: methylPREDNISolone Sod Succ 125 MG/2 ML VIAL 60 MG IVPUSH ×2 (11:47→20:45)
--- NOTE | 2021-08-01 12:39 | MHC.CM.PN ---
EMR REVIEWED, PT O2 NEEDS HAVE INCREASED AND PT NOW ON 3L NC, NO PLAN FOR D/C TODAY, PLAN REMAINS HOME W/RESUMP OF [employer] HRS AT THIS TIME. CM WILL CONT TO FOLLOW D/C NEEDS.
[2021-08-01 16:19] LABS: Glucose, Whole Blood 327 mg/dL (60-115)
[2021-08-01] MEDS: Enoxaparin Sodium 40 MG/0.4 ML SYRINGE SUBCUT (16:47)
[2021-08-01 20:26] LABS: Glucose, Whole Blood 262 mg/dL (60-115)
[2021-08-01] MEDS: Atorvastatin Calcium 40 MG TABLET PO (20:46)
[2021-08-01] MEDS: Aspirin Enteric Coated 81 MG TABLET.DR PO (20:46)
[2021-08-01] MEDS: Gabapentin 300 MG CAPSULE PO (20:46)
[2021-08-01] MEDS: Insulin Glargine,Hum.rec.anlog 100 UNIT/ML 10 ML VIAL 10 UNIT SUBCUT (20:48)
[2021-08-02] VITALS (10 sets, daily range): BP systolic 114–157; BP diastolic 57–69; PULSE 62–92; RESP 16–20; TEMP 35.6–37.1; O2SAT 90–100
[2021-08-02] MEDS: 0.9 % Sodium Chloride Flush 3 ML SYRINGE IVFLUSH ×4 (00:40→21:57)
[2021-08-02 05:04] LABS: Hematocrit 36.4 % (37.0-47.0); Hemoglobin 11.5 g/dl (12.0-16.0); Mean Corpuscular HGB Conc 31.6 g/dl (31.0-35.0); Mean Corpuscular Hemoglobin 28.4 pg (27.0-33.0); Mean Corpuscular Volume 89.9 fL (80.0-98.0); Mean Platelet Volume 11.9 fL (9.4-12.3); Platelet Count 223 X10*3/uL (160-400); Red Blood Count 4.05 X10*6/uL (4.20-5.50); Red Cell Distribution Width 13.3 % (11.0-16.0); White Blood Count 17.8 X10*3/uL (4.8-10.8)
[2021-08-02 05:18] LABS: Anion Gap 13 (12-20); Blood Urea Nitrogen 35 mg/dL (9-16); Calcium 8.7 mg/dL (8.4-10.2); Carbon Dioxide 28 mmol/L (22-29); Chloride 100 mmol/L (96-108); Creatinine Clr Calc Pharmacy 43.6; Estimated Glomerular Filt Rate 51; Glucose Fasting 260 mg/dL (60-99); Potassium 4.3 mmol/L (3.3-5.1); Sodium 137 mmol/L (135-145)
[2021-08-02] MEDS: Albuterol/Iprat 2.5/0.5MG 3 ML AMPUL.NEB INHALE ×4 (07:38→19:49)
[2021-08-02] MEDS: Fluticasone/Vilanterol 200/25 BLST.W.DEV 1 PUFF INHALE (07:38)
[2021-08-02 07:41] LABS: Glucose, Whole Blood 235 mg/dL (60-115)
[2021-08-02] MEDS: Fluticasone Propionate Nasal 16 GM SPRAY 2 SPRAY NOSTRIL-B (08:06)
[2021-08-02] MEDS: Calcium + Vitamin D 250 MG TABLET 500 MG PO (08:06)
[2021-08-02] MEDS: Insulin Lispro 100 UNIT/ML 3 ML VIAL SUBCUT ×4 (08:06→21:57)
[2021-08-02] MEDS: FLUoxetine HCl 10 MG CAPSULE PO (08:06)
[2021-08-02] MEDS: Losartan Potassium 25 MG TABLET PO (08:06)
[2021-08-02] MEDS: Docusate Sodium 100 MG CAPSULE PO ×2 (08:06→21:56)
[2021-08-02] MEDS: hydrALAZINE HCl 50 MG TABLET PO ×3 (08:07→21:56)
[2021-08-02] MEDS: Furosemide 20 MG TABLET PO (08:07)
[2021-08-02] MEDS: methylPREDNISolone Sod Succ 125 MG/2 ML VIAL 60 MG IVPUSH (08:07)
[2021-08-02] MEDS: carvediloL 3.125 MG TABLET PO ×2 (08:07→21:56)
--- NOTE | 2021-08-02 08:32 | MHC.CM.PN ---
[facility] REFERRAL PLACED NO PREFERRED SNF'S HAVE OFFERED PT A BED, CM WILL DISCUSS W/FAMILY ONCE BED OFFER IS RECEIVED.
--- NOTE | 2021-08-02 08:50 | HO.PM.IMPN ---
Subjective Subjective Date of Service: 08/02/21 Interval History: cc: sob interval history:improved, but still very wheezy and sob on exertion Cardiovascular Cardiovascular: Reports no additional cardiovascular complaints Respiratory Respiratory: Reports no additional respiratory complaints Physical Exam Vital Signs: Vital Signs: Last Vital Signs Temp 96.8 F 08/02/21 07:15 Pulse 81 08/02/21 07:41 Resp 20 08/02/21 07:41 BP 135/69 08/02/21 07:15 Pulse Ox 94 08/02/21 07:15 Oxygen Flow Rate 2 07/29/21 12:04 BMI result Body Mass Index 26.0 General: AO X 3, no acute distress Resp:? wheezes bilateral, no accessory muscles used CVS: S1,S2,RRR GI: soft, non tender, non distended Neuro:? motor grossly intact, alert Psych: appropriate affect, appropriate insight? Objective Data Active Medications Acetaminophen (Acetaminophen 325 Mg Tablet) 650 mg PO Q6H PRN PRN Reason: Pain, Mild (Pain Scale 1-3) Albuterol/Ipratropium (Albuterol/Iprat 2.5/0.5mg 3 Ml Ampul.Neb) 3 ml INHALE RQ4H WHILE AWAKE [facility] Last Admin: 08/02/21 07:38 Dose: 3 ml Documented by: KASH Aspirin (Aspirin Enteric Coated 81 Mg Tablet.) 81 mg PO BEDTIME [facility] Last Admin: 08/01/21 20:46 Dose: 81 mg Documented by: VARINDER Atorvastatin Calcium (Atorvastatin Calcium 40 Mg Tablet) 40 mg PO BEDTIME [facility] Last Admin: 08/01/21 20:46 Dose: 40 mg Documented by: VARINDER Calcium Carbonate/Cholecalciferol (Calcium + Vitamin D 250 Mg Tablet) 500 mg PO DAILY [facility] Last Admin: 08/02/21 08:06 Dose: 500 mg Documented by: CRISTINA Carvedilol (Carvedilol 3.125 Mg Tablet) 3.125 mg PO BID [facility]; Protocol Last Admin: 08/02/21 08:07 Dose: 3.125 mg Documented by: CRISTINA Dextrose (Dextrose 50 % 25 Gm/50 Ml Syringe) 25 gm IVPUSH Q15M PRN; Protocol PRN Reason: per Hypoglycemia Standing Ord. Docusate Sodium (Docusate Sodium 100 Mg Capsule) 100 mg PO BID [facility] Last Admin: 08/02/21 08:06 Dose: 100 mg Documented by: CRISTINA Enoxaparin Sodium (Enoxaparin Sodium 40 Mg/0.4 Ml Syringe) 40 mg SUBCUT Q24H [facility] Last Admin: 08/01/21 16:47 Dose: 40 mg Documented by: VARINDER Fluoxetine HCl (Fluoxetine Hcl 10 Mg Capsule) 10 mg PO DAILY [facility] Last Admin: 08/02/21 08:06 Dose: 10 mg Documented by: CRISTINA Fluticasone Propionate (Fluticasone Propionate Nasal 16 Gm [place]) 2 spray NOSTRIL-B DAILY [facility] Last Admin: 08/02/21 08:06 Dose: 2 spray Documented by: CRISTINA Fluticasone/Vilanterol (Fluticasone/Vilanterol 200/25 Blst.W.Dev) 1 puff INHALE RDAILY [facility] Last Admin: 08/02/21 07:38 Dose: 1 puff Documented by: KASH Furosemide (Furosemide 20 Mg Tablet) 20 mg PO DAILY [facility]; Protocol Last Admin: 08/02/21 08:07 Dose: 20 mg Documented by: CRISTINA Gabapentin (Gabapentin 300 Mg Capsule) 300 mg PO BEDTIME [facility] Last Admin: 08/01/21 20:46 Dose: 300 mg Documented by: VARINDER Glucose (Glucose Gel 15 Gm Gel..Gram.) 15 gm PO Q15M PRN; Protocol PRN Reason: per Hypoglycemia Standing Ord. Hydralazine HCl (Hydralazine Hcl 50 Mg Tablet) 50 mg PO TID [facility]; Protocol Last Admin: 08/02/21 08:07 Dose: 50 mg Documented by: CRISTINA Insulin Glargine (Insulin Glargine,Hum.Rec.Anlog 100 Unit/Ml 10 Ml Vial) 10 unit SUBCUT BEDTIME [facility] Last Admin: 08/01/21 20:48 Dose: 10 unit Documented by: VARINDER Insulin Human Lispro (Insulin Lispro 100 Unit/Ml 3 Ml Vial) 0 unit SUBCUT QIDACHS [facility]; Protocol Last Admin: 08/02/21 08:06 Dose: 4 unit Documented by: CRISTINA Losartan Potassium (Losartan Potassium 25 Mg Tablet) 25 mg PO DAILY [facility]; Protocol Last Admin: 08/02/21 08:06 Dose: 25 mg Documented by: CRISTINA Methylprednisolone Sodium Succinate (Methylprednisolone Sod Succ 125 Mg/2 Ml Vial) 60 mg IVPUSH Q12H [facility] Last Admin: 08/02/21 08:07 Dose: 60 mg Documented by: CRISTINA Pharmacy Consult (Consult Rx Perform Med Rec) 1 each MISCELLANE ONCE PRN PRN Reason: Consult order Senna (Sennosides 8.6 Mg Tablet) 17.2 mg PO DAILY PRN PRN Reason: Constipation Sodium Chloride (0.9 % Sodium Chloride Flush 3 Ml Syringe) 3 ml IVFLUSH QSHIFT [facility] Last Admin: 08/02/21 08:07 Dose: 3 ml Documented by: CRISTINA Tiotropium [place] (Tiotropium [place] 18 Mcg Cap.W.Dev) 1 puff INHALE RDAILY [facility] Last Admin: 08/02/21 07:38 Dose: 1 puff Documented by: KASH Labs CBC & Chem 7: 08/02/21 04:35 08/02/21 04:35 Labs: Laboratory Results - last 24 hr 08/01/21 08/01/21 08/01/21 11:34 15:52 19:50 MCV MCH MCHC RDW Plt Count MPV Absolute Nucleated RBC Nucleated RBC % (auto) Anion Gap Estim Creat Clear Calc Estimated GFR POC Glucose 265 H 327 H 262 H Fasting Glucose Calcium 08/02/21 08/02/21 08/02/21 04:35 04:35 07:17 MCV 89.9 MCH 28.4 MCHC 31.6 RDW 13.3 Plt Count 223 MPV 11.9 Absolute Nucleated RBC 0.000 Nucleated RBC % (auto) 0.0 Anion Gap 13 Estim Creat Clear Calc 43.6 Estimated GFR 51 POC Glucose 235 H Fasting Glucose 260 H Calcium 8.7 Assessment and Plan (1) Dizziness: Status: Resolved (2) Asthma with exacerbation: Status: Resolved Plan 75F presented with sob ?acute hypoxic respiratory failure secondary to moderate persistent asthma and COPD with acute? decompensation overall improved, now on room air, but still sob on exertion, and very wheezy will transition to po prednisone ?DuoNebs ?chronic diastolic CHF/pulmonary hypertension ?does not appear to be fluid overloaded, continue maintenance Lasix p.o. ?history of CVA ?continue aspirin statin ?diabetes ?basal bolus insulin, monitor point of cares ?hypertension ?continue losartan, hydralazine, carvedilol ?mood disorder ?continue fluoxetine ?coronary disease ?status post CABG in 2011 ?continue aspirin and statin ?DVT prophylaxis with Lovenox ?full code reason for continued hospitalization:still sob, still wheezing Quality Stroke Does the patient have a stroke diagnosis?: No VTE Prior VTE?: No VTE Risk Level:: Medical - moderate - high VTE Device Contraindication: Treatment Not Indicated VTE Drug Contraindication: N/A - Med Ordered
[2021-08-02] MEDS: predniSONE 20 MG TABLET 40 MG PO (10:48)
[2021-08-02 11:44] LABS: Glucose, Whole Blood 272 mg/dL (60-115)
[2021-08-02] MEDS: Enoxaparin Sodium 40 MG/0.4 ML SYRINGE SUBCUT (15:35)
[2021-08-02 16:20] LABS: Glucose, Whole Blood 246 mg/dL (60-115)
[2021-08-02 20:47] LABS: Glucose, Whole Blood 285 mg/dL (60-115)
[2021-08-02] MEDS: Aspirin Enteric Coated 81 MG TABLET.DR PO (21:56)
[2021-08-02] MEDS: Atorvastatin Calcium 40 MG TABLET PO (21:56)
[2021-08-02] MEDS: Gabapentin 300 MG CAPSULE PO (21:56)
[2021-08-02] MEDS: Insulin Glargine,Hum.rec.anlog 100 UNIT/ML 10 ML VIAL 10 UNIT SUBCUT (21:57)
[2021-08-03 03:16] VITALS: BP 122/58; PULSE 84; RESP 16; TEMP 36.1; O2SAT 91
[2021-08-03 06:58] LABS: Hemoglobin 11.9 g/dl (12.0-16.0); Mean Corpuscular HGB Conc 32.2 g/dl (31.0-35.0); Mean Corpuscular Hemoglobin 29.2 pg (27.0-33.0); Mean Corpuscular Volume 90.7 fL (80.0-98.0); Mean Platelet Volume 11.7 fL (9.4-12.3); Platelet Count 254 X10*3/uL (160-400); Red Blood Count 4.08 X10*6/uL (4.20-5.50); Red Cell Distribution Width 13.2 % (11.0-16.0); White Blood Count 16.7 X10*3/uL (4.8-10.8)
[2021-08-03 06:59] VITALS: BP 126/69; PULSE 68; RESP 18; TEMP 37.4; O2SAT 95
[2021-08-03 07:08] LABS: Anion Gap 9 (12-20); Blood Urea Nitrogen 35 mg/dL (9-16); Calcium 8.3 mg/dL (8.4-10.2); Carbon Dioxide 35 mmol/L (22-29); Chloride 100 mmol/L (96-108); Creatinine Clr Calc Pharmacy 36.4; Estimated Glomerular Filt Rate 41; Glucose Fasting 254 mg/dL (60-99); Potassium 4.2 mmol/L (3.3-5.1); Sodium 140 mmol/L (135-145)
[2021-08-03] MEDS: Fluticasone/Vilanterol 200/25 BLST.W.DEV 1 PUFF INHALE (07:41)
[2021-08-03] MEDS: Albuterol/Iprat 2.5/0.5MG 3 ML AMPUL.NEB INHALE ×2 (07:41→11:42)
[2021-08-03 07:45] VITALS: PULSE 69; RESP 22; O2SAT 95
[2021-08-03 07:52] LABS: Glucose, Whole Blood 229 mg/dL (60-115)
[2021-08-03] MEDS: carvediloL 3.125 MG TABLET PO (09:21)
[2021-08-03] MEDS: 0.9 % Sodium Chloride Flush 3 ML SYRINGE IVFLUSH (09:21)
[2021-08-03] MEDS: Calcium + Vitamin D 250 MG TABLET 500 MG PO (09:21)
[2021-08-03] MEDS: predniSONE 20 MG TABLET 40 MG PO (09:21)
[2021-08-03] MEDS: Docusate Sodium 100 MG CAPSULE PO (09:21)
[2021-08-03] MEDS: Insulin Lispro 100 UNIT/ML 3 ML VIAL SUBCUT ×2 (09:22→11:51)
[2021-08-03] MEDS: Losartan Potassium 25 MG TABLET PO (09:22)
[2021-08-03] MEDS: hydrALAZINE HCl 50 MG TABLET PO (09:22)
[2021-08-03] MEDS: FLUoxetine HCl 10 MG CAPSULE PO (09:22)
[2021-08-03] MEDS: Furosemide 20 MG TABLET PO (09:22)
[2021-08-03 11:02] VITALS: BP 125/67; PULSE 70; RESP 18; TEMP 36.3; O2SAT 95
[2021-08-03 11:23] LABS: Glucose, Whole Blood 185 mg/dL (60-115)
[2021-08-03 11:42] VITALS: PULSE 71; RESP 20; O2SAT 96
[2021-08-03] MEDS: Fluticasone Propionate Nasal 16 GM SPRAY 2 SPRAY NOSTRIL-B (11:51)
--- NOTE | 2021-08-03 12:39 | PM.DS ---
DS: Providers Provider Date of Service: 08/03/21 Date of admission: 07/29/21 13:53 Primary care physician: [facility] DS: Diagnosis Discharge Diagnosis (1) Dizziness: Status: Resolved (2) Asthma with exacerbation: Status: Resolved (3) Asthma: Status: Acute (4) COPD exacerbation: Status: Acute (5) Acute respiratory failure with hypoxia: Status: Acute DS: Summary Hospital Course Hospital Course: admission note HPI 75f presented with sob. ? Patient was recently discharged 07/15/2021 after hospitalization for dizziness complicated by asthma exacerbation.? Patient states she was feeling well on day of discharge, but then several days later started having progressive shortness of breath.? Worse on exertion, associated with subjective fevers, she states that her daughter has a viral illness.? Shortness of breath continued to worsen to the point on day of admission she came to the hospital.? In ED patient was very wheezy and found to be hypoxic, 88% on room air.? chest x-ray was unremarkable. Hospital course The patient was admitted to the hospital for treatment of acute hypoxic respiratory failure secondary to asthma and COPD exacerbation. Treated with IV steroids and DuoNebs with good response over the course of hospital stay as she was weaned off the oxygen and her dyspnea and wheezes improved significantly. Other medical problems were fairly controlled. She was able to ambulate on room air with staff. Use duo nebs every 4-6 hours at home while awake For the next 3 days then as needed Continue prednisone for 3 more days continue physical therapy at home Time Spent with Patient Time attestation: Total time spent providing and/or coordinating discharge services: Discharge coordination time: Greater than 30 minutes Quality: Safe Use of Opioids Does Pt have an Active Cancer Diagnosis on the Problem List?: No Quality: Stroke Does the patient have a stroke diagnosis?: No Physical Exam Vital Signs: Vital Signs: Last Vital Signs Temp 97.3 F 08/03/21 11:02 Pulse 71 08/03/21 11:42 Resp 20 08/03/21 11:42 BP 125/67 08/03/21 11:02 Pulse Ox 95 08/03/21 11:02 Oxygen Flow Rate 2 07/29/21 12:04 BMI result Body Mass Index 26.0 Const: Other: Constitutional : Alert, interactive, not in distress Neck : Normal inspection, Supple Cardiovascular : RRR, no JVP, no lower extremity edema Respiratory : fair bilateral air entry, no crackles, Scattered bilateral wheezes , no rhonchi Gastrointestinal: soft, lax, Normal bowel sounds, Non tender Skin : Warm, Dry Neurological : Alert & oriented to self and place, No focal deficit , CN 2-12 within normal DS: Data Data Completed and Pending Labs on day of discharge: Laboratory Results - last 24 hr 08/02/21 08/02/21 08/03/21 16:15 20:00 06:32 WBC 16.7 H RBC 4.08 L Hgb 11.9 L Hct 37.0 MCV 90.7 MCH 29.2 MCHC 32.2 RDW 13.2 Plt Count 254 MPV 11.7 Absolute Nucleated RBC 0.000 Nucleated RBC % (auto) 0.0 Sodium Potassium Chloride Carbon Dioxide Anion Gap BUN Creatinine Estim Creat Clear Calc Estimated GFR POC Glucose 246 H 285 H Fasting Glucose Calcium 08/03/21 08/03/21 08/03/21 06:32 07:03 11:06 WBC RBC Hgb Hct MCV MCH MCHC RDW Plt Count MPV Absolute Nucleated RBC Nucleated RBC % (auto) Sodium 140 Potassium 4.2 Chloride 100 Carbon Dioxide 35 H Anion Gap 9 L BUN 35 H Creatinine 1.27 Estim Creat Clear Calc 36.4 Estimated GFR 41 POC Glucose 229 H 185 H Fasting Glucose 254 H Calcium 8.3 L Preliminary micro results at discharge 07/29/21 12:39 Blood Culture - Preliminary Blood - Venous No growth after 48 hours. 07/29/21 12:39 Blood Culture - Preliminary Blood - Venous No growth after 48 hours. Discharge Plan Discharge Patient Disposition: Home Health Service Discharge Diagnosis: Asthma /COPD exacerbation Referrals: [facility] [Primary Care Provider] - 1 Week Discharge Medications: New prednisone 20 mg Tablet 40 mg PO DAILY 3 Days Qty: 6 0RF Continued Incruse Ellipta 62.5 mcg/actuation blister with device 1 inh inhalation DAILY Qty: 30 5RF fluticasone propion-salmeterol 500-50 mcg/dose blister with device 1 inh PO BID 0RF albuterol sulfate [Ventolin HFA] 90 mcg/actuation HFA aerosol inhaler 2 puff inhalation Q4H PRN (Reason: Shortness Of Breath) 0RF albuterol sulfate 2.5 mg /3 mL (0.083 %) solution for nebulization 1 amp inhalation TID PRN (Reason: Shortness Of Breath) Qty: 90 2RF (DME) lancets 33 gauge misc See Rx Instructions ea Not Applicable TID Qty: 100 0RF Rx Instructions: As directed calcium carbonate-vitamin D3 600 mg(1,500mg) -400 unit tablet 1 tab PO DAILY 0RF fluticasone propionate 50 mcg/actuation spray,suspension 2 spray intranasal DAILY 0RF furosemide 20 mg tablet 20 mg PO DAILY 0RF hydralazine 50 mg tablet 50 mg PO TID 0RF gabapentin 300 mg capsule 300 mg PO BEDTIME 0RF losartan 25 mg tablet 25 mg PO DAILY 0RF carvedilol 3.125 mg tablet 3.125 mg PO BID 0RF (DME) blood sugar diagnostic Strip See Rx Instructions ea Not Applicable TID Qty: 10 0RF Rx Instructions: As directed atorvastatin 40 mg tablet 40 mg PO BEDTIME 0RF insulin glargine 100 unit/mL (3 mL) insulin pen 10 unit subcut BEDTIME 0RF (DME) pen needle, diabetic 31 gauge x 5/16 needle See Rx Instructions ea .ROUTE .MEDSUPPLY Qty: 1200 0RF Rx Instructions: As directed fluoxetine 10 mg capsule 10 mg PO DAILY 0RF aspirin 81 mg tablet,delayed release (DR/EC) 81 mg PO BEDTIME 0RF sennosides 8.6 mg tablet 17.2 mg PO DAILY PRN (Reason: Constipation) 0RF docusate sodium 100 mg capsule 100 mg PO BID 0RF Discharge Orders: Discharge Order (Routine); Ordered 08/03/21 Ordered By: Sadi Carroll Diet: advance to usual diet and low salt diet Activity on Discharge: As tolerated Stand Alone Forms: Patient Portal Discharge page Care Plan Goals: Read below Health Concerns: Read below Plan of Treatment: Read below Assessment: you were admitted to the hospital for treatment of asthma/COPD exacerbation. Received treatment of nebulizers and steroids with good response over the course of hospital stay as you were weaned off the oxygen. Use duo nebs every 4-6 hours at home while awake For the next 3 days then as needed Continue prednisone for 3 more days continue physical therapy at home
--- NOTE | 2021-08-03 13:49 | MHC.CM.PN ---
PATIENT'S GRAND DAUGHTER (IN ROOM) HERE TO PROVIDE TRANSPORT HOME. [facility] RN DAVID ([phone]) AWARE THAT PATIENT COULD BENEFIT FROM HOME P.T. DAVID STATES THAT [facility] WILL PROVIDE THIS SERVICE. PATIENT, GRANDDAUGHTER, AND RN AWARE OF PLAN. IMM 08/03 IN CHART
== END 2021-08-03 14:14 | disposition home health service (06) | DRG 190 ==
LOC: HO.ED 13:13 → HO.EDOVER 14:07 → HO.S3 20:46
PROVIDERS: Admitting Provider Internal Medicine; Emergency Provider Emergency Medicine; Visit Provider Student in an Organized Health Care Education/Training Program
DX: J44.1 Chronic obstructive pulmonary disease with (acute) exacerbation (principal); J96.01 Acute respiratory failure with hypoxia; J45.41 Moderate persistent asthma with (acute) exacerbation; I50.32 Chronic diastolic (congestive) heart failure; I25.10 Atherosclerotic heart disease of native coronary artery without angina pectoris; E11.9 Type 2 diabetes mellitus without complications; I27.20 Pulmonary hypertension, unspecified; F39 Unspecified mood [affective] disorder; Z20.822 Contact with and (suspected) exposure to COVID-19; Z86.73 Personal history of transient ischemic attack (TIA), and cerebral infarction without residual deficits; Z95.1 Presence of aortocoronary bypass graft; Z79.4 Long term (current) use of insulin; Z79.51 Long term (current) use of inhaled steroids; Z79.82 Long term (current) use of aspirin; Z79.899 Other long term (current) drug therapy
CPT/HCPCS: 36415; 71045; 80048; 80076; 82803; 82947; 83605; 83735; 84484; 85025; 85027; 85610; 87040; 87502; 87635; 93005; 94640; 94644; 96365; 96366; 96375; 99285; 99291; J1650; J1940; J2930; J3475

== ENCOUNTER → 2021-09-20 11:30 | Outpatient (BNVA) | payer OTHER, SELFPAY | PROVIDERS: PCP Internal Medicine; Visit Provider Internal Medicine | DX: J44.9 Chronic obstructive pulmonary disease, unspecified (principal); J30.9 Allergic rhinitis, unspecified; R05.9 Cough, unspecified | CPT/HCPCS: 99212 ==

== ENCOUNTER 2021-11-04 09:17 | Outpatient (REF) | payer OTHER, SELFPAY ==
--- NOTE | 2021-11-04 17:32 | PFT_ITS ---
FLOWS: FEV1 63% of predicted at 1.04 L. FVC 60% of predicted at 1.33 L. FEV1 to FVC ratio of 0.78. No bronchodilator response. LUNG VOLUMES: Total lung capacity 63% of predicted at 2.71 L. Residual volume 67% of predicted at 1.40 L. Slow vital capacity 58% of predicted at 1.32 L. Expiratory reserve volume 42% of predicted at 0.17 L. Diffusion capacity is moderately decreased, diffusion capacity corrects to normal after adjustment for alveolar ventilation. IMPRESSION: Moderate restrictive ventilatory defect with no bronchodilator response. Decreased expiratory reserve volume suggests extrathoracic restriction likely secondary to abdominal obesity. Karthik Avitia MD AP/MODL / [id number]
== END 2021-11-04 09:18 | disposition home or self-care (01) ==
LOC: HO.RESP 09:17
PROVIDERS: PCP Internal Medicine; Visit Provider Internal Medicine
DX: J44.9 Chronic obstructive pulmonary disease, unspecified (principal); R05.9 Cough, unspecified
CPT/HCPCS: 94060; 94727; 94729

== ENCOUNTER 2021-12-22 11:18 | Outpatient (REF) | payer OTHER, SELFPAY ==
--- NOTE | ~2021-12-22 | XR_ITS ---
EXAMINATION: XR KNEE, RIGHT XR KNEE, LEFT CLINICAL INFORMATION: Pain bilateral knees COMPARISON: Standing AP knees and left knee 05/27/2014 and right knee 04/13/2014 TECHNIQUE: Right knee is imaged in 5 views and the left knee is imaged in 4 views. There are a total of 9 views. FINDINGS: Right: No fracture, dislocation, destructive process, or suprapatellar effusion. There is no joint narrowing or erosive change or chondrocalcinosis. There is spurring at the quadriceps insertion patella. No lateralization patella. Mild generalized osteopenia is suggested. No periostitis. 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 Left: No fracture, dislocation, destructive process, or suprapatellar effusion. There is no joint narrowing or erosive change or chondrocalcinosis. There is spurring at the quadriceps insertion patella. No lateralization patella. Mild generalized osteopenia is suggested. No periostitis. 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 XR/XR knee LT 4V IMPRESSION: -No focal joint narrowing or erosive change. No suprapatellar effusion. -Spurring at quadriceps insertion, right patella.
--- NOTE | ~2021-12-22 | XR_ITS ---
EXAMINATION: XR HAND, RIGHT XR HAND, LEFT CLINICAL INFORMATION: Pain bilateral hands. COMPARISON: None TECHNIQUE: Each hand is imaged in 3 views. There are a total of 6 views. FINDINGS: Right: There is mild generalized osteopenia. No periarticular demineralization. No acute or healing fracture, dislocation, or destructive process. The ulnar variance is neutral. No focal carpal joint narrowing or erosive change or chondrocalcinosis. The MCP and interphalangeal joints show no focal significant narrowing or erosive change. There are mild degenerative changes DIP joints with minor spurring bases distal phalanges. Left: There is mild generalized osteopenia. No periarticular demineralization. No acute or healing fracture, dislocation, or destructive process. The ulnar variance is neutral. No focal carpal joint narrowing or erosive change or chondrocalcinosis. The MCP and interphalangeal joints show no focal significant narrowing or erosive change. There are mild degenerative changes DIP joints with minor spurring bases distal phalanges. XR/XR hand LT min 3V IMPRESSION: -Mild generalized osteopenia. No fracture, dislocation, destructive process. -Mild degenerative changes bilateral DIP joints. No erosive changes.
--- NOTE | ~2021-12-22 | XR_ITS ---
EXAMINATION: XR HAND, RIGHT XR HAND, LEFT CLINICAL INFORMATION: Pain bilateral hands. COMPARISON: None TECHNIQUE: Each hand is imaged in 3 views. There are a total of 6 views. FINDINGS: Right: There is mild generalized osteopenia. No periarticular demineralization. No acute or healing fracture, dislocation, or destructive process. The ulnar variance is neutral. No focal carpal joint narrowing or erosive change or chondrocalcinosis. The MCP and interphalangeal joints show no focal significant narrowing or erosive change. There are mild degenerative changes DIP joints with minor spurring bases distal phalanges. Left: There is mild generalized osteopenia. No periarticular demineralization. No acute or healing fracture, dislocation, or destructive process. The ulnar variance is neutral. No focal carpal joint narrowing or erosive change or chondrocalcinosis. The MCP and interphalangeal joints show no focal significant narrowing or erosive change. There are mild degenerative changes DIP joints with minor spurring bases distal phalanges. XR/XR hand RT min 3V IMPRESSION: -Mild generalized osteopenia. No fracture, dislocation, destructive process. -Mild degenerative changes bilateral DIP joints. No erosive changes.
--- NOTE | ~2021-12-22 | XR_ITS ---
EXAMINATION: XR KNEE, RIGHT XR KNEE, LEFT CLINICAL INFORMATION: Pain bilateral knees COMPARISON: Standing AP knees and left knee 05/27/2014 and right knee 04/13/2014 TECHNIQUE: Right knee is imaged in 5 views and the left knee is imaged in 4 views. There are a total of 9 views. FINDINGS: Right: No fracture, dislocation, destructive process, or suprapatellar effusion. There is no joint narrowing or erosive change or chondrocalcinosis. There is spurring at the quadriceps insertion patella. No lateralization patella. Mild generalized osteopenia is suggested. No periostitis. 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 Left: No fracture, dislocation, destructive process, or suprapatellar effusion. There is no joint narrowing or erosive change or chondrocalcinosis. There is spurring at the quadriceps insertion patella. No lateralization patella. Mild generalized osteopenia is suggested. No periostitis. 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 XR/XR knee RT 4V IMPRESSION: -No focal joint narrowing or erosive change. No suprapatellar effusion. -Spurring at quadriceps insertion, right patella.
[2021-12-22 11:47] LABS: MANUAL DIFF FLAG NO
[2021-12-22 12:19] LABS: Basophils Absolute Auto 0.1 X10*3/uL (0.0-0.2); Basophils Percent Auto 0.6 % (0-2); Eosinophils Absolute Auto 0.9 X10*3/uL (0.0-0.4); Eosinophils Percent Auto 9.1 % (0-4); Hematocrit 36.9 % (37.0-47.0); Hemoglobin 11.6 g/dl (12.0-16.0); Imm Gran Abs Auto 0.03 X10*3/uL (0.00-0.03); Imm Gran Pct Auto 0.3 % (0.0-0.4); Lymphocytes Absolute Auto 2.7 X10*3/uL (1.2-4.9); Lymphocytes Percent Auto 27.5 % (20-40); Mean Corpuscular HGB Conc 31.4 g/dl (31.0-35.0); Mean Corpuscular Hemoglobin 28.9 pg (27.0-33.0); Mean Corpuscular Volume 91.8 fL (80.0-98.0); Mean Platelet Volume 11.7 fL (9.4-12.3); Monocytes Percent Auto 9.6 % (2-11); Neutrophils Absolute Auto 5.2 x10*3/uL (2.0-8.3); Neutrophils Percent Auto 52.9 % (45-73); Platelet Count 292 X10*3/uL (160-400); Red Blood Count 4.02 X10*6/uL (4.20-5.50); Red Cell Distribution Width 12.8 % (11.0-16.0); White Blood Count 9.9 X10*3/uL (4.8-10.8)
[2021-12-22 12:57] LABS: Alanine Aminotransferase 14 U/L (0-31); Alkaline Phosphatase 87 U/L (39-117); Anion Gap 16 (12-20); Aspartate Amino Transferase 22 U/L (5-31); Bilirubin Total 0.3 mg/dL (0.0-1.0); Blood Urea Nitrogen 15 mg/dL (9-16); C Reactive Protein 0.77 mg/dL (< or = 0.50); Carbon Dioxide 27 mmol/L (22-29); Chloride 104 mmol/L (96-108); Cholesterol 132 mg/dL; Estimated Glomerular Filt Rate 47; Glucose Random 267 mg/dL (60-115); HDL Cholesterol 48 mg/dL; LDL Cholesterol Calculated 56 mg/dl; Potassium 4.3 mmol/L (3.3-5.1); Sodium 143 mmol/L (135-145); Total Protein 7.2 g/dL (6.5-8.0); Triglycerides 140 mg/dL
[2021-12-22 13:03] LABS: Erythrocyte Sedimentation Rate 34 MM/HR (0-20)
[2021-12-22 13:11] LABS: Rheumatoid Factor 392.2 IU/mL (<15.0)
[2021-12-22 13:29] LABS: Vitamin B12 273 pg/mL (200-900)
[2021-12-22 14:21] LABS: Creatinine Urine 167.92 mg/dL; Microalbum/Creatinine Ratio Ur 6.5 ug/mg cr
[2021-12-24 06:52] LABS: LDL Cholesterol Direct 59 mg/dL (<100)
[2021-12-28 13:17] LABS: Anti Nuclear Antibody Screen POSITIVE (NEGATIVE)
== END 2021-12-22 11:19 | disposition home or self-care (01) ==
LOC: HO.LAB 11:18
PROVIDERS: PCP Internal Medicine; Visit Provider Internal Medicine
DX: M25.561 Pain in right knee (principal); M25.562 Pain in left knee; M79.641 Pain in right hand; M79.642 Pain in left hand; I10 Essential (primary) hypertension; I25.10 Atherosclerotic heart disease of native coronary artery without angina pectoris; I73.9 Peripheral vascular disease, unspecified; M06.9 Rheumatoid arthritis, unspecified
CPT/HCPCS: 36415; 73130; 73564; 80053; 80061; 82043; 82607; 83721; 85025; 85652; 86038; 86039; 86140; 86431

== ENCOUNTER → 2021-12-28 09:59 | Outpatient (BNVA) | payer OTHER, SELFPAY | PROVIDERS: PCP Internal Medicine; Visit Provider Internal Medicine | DX: J44.9 Chronic obstructive pulmonary disease, unspecified (principal); J30.9 Allergic rhinitis, unspecified; J98.4 Other disorders of lung | CPT/HCPCS: 99212 ==

== ENCOUNTER 2022-03-21 09:42 | Outpatient (REF) | payer OTHER, SELFPAY ==
[2022-03-21 10:56] LABS: Partial Thromboplastin Time 28.4 SEC (26.0-36.4)
[2022-03-21 11:22] LABS: B Type Natriuretic Peptide 156 pg/mL (<100)
[2022-03-21 11:25] LABS: Anion Gap 13 (12-20); Blood Urea Nitrogen 13 mg/dL (9-16); Carbon Dioxide 26 mmol/L (22-29); Chloride 107 mmol/L (96-108); Cholesterol 126 mg/dL; Estimated Glomerular Filt Rate > 60; Glucose Random 174 mg/dL (60-115); HDL Cholesterol 45 mg/dL; LDL Cholesterol Calculated 63 mg/dl; Potassium 3.9 mmol/L (3.3-5.1); Sodium 142 mmol/L (135-145); Triglycerides 91 mg/dL
== END 2022-03-21 09:43 | disposition home or self-care (01) ==
LOC: HO.LAB 09:42
PROVIDERS: Visit Provider Internal Medicine Cardiovascular Disease
DX: R06.02 Shortness of breath (principal)
CPT/HCPCS: 36415; 80048; 80061; 83880; 85730

== ENCOUNTER 2022-04-21 11:52 | Outpatient (REF) | payer OTHER, SELFPAY ==
[2022-04-21 13:13] LABS: MANUAL DIFF FLAG NO
[2022-04-21 13:47] LABS: Basophils Percent Auto 0.4 % (0-2); Eosinophils Absolute Auto 0.9 X10*3/uL (0.0-0.4); Hematocrit 37.5 % (37.0-47.0); Hemoglobin 11.6 g/dl (12.0-16.0); Imm Gran Abs Auto 0.04 X10*3/uL (0.00-0.03); Imm Gran Pct Auto 0.4 % (0.0-0.4); Lymphocytes Absolute Auto 3.5 X10*3/uL (1.2-4.9); Lymphocytes Percent Auto 31.1 % (20-40); Mean Corpuscular HGB Conc 30.9 g/dl (31.0-35.0); Mean Corpuscular Hemoglobin 28.5 pg (27.0-33.0); Mean Corpuscular Volume 92.1 fL (80.0-98.0); Monocytes Percent Auto 9.1 % (2-11); Neutrophils Absolute Auto 5.7 x10*3/uL (2.0-8.3); Platelet Count 325 X10*3/uL (160-400); Red Blood Count 4.07 X10*6/uL (4.20-5.50); Red Cell Distribution Width 13.2 % (11.0-16.0); White Blood Count 11.1 X10*3/uL (4.8-10.8)
[2022-04-21 14:04] LABS: Appearance Urine Cloudy; Color Urine Yellow; Glucose Urine UA Negative (Negative); Leukocyte Esterase Urine Moderate (2+) (Negative); Nitrite Urine Negative (Negative); Specific Gravity - Urine 1.015 (1.005-1.025); UMIC TRIGGER UA YES; Urine Blood Negative (Negative); Urine Ketones Negative (Negative); Urine Protein Negative (Neg-Trace)
[2022-04-21 14:06] LABS: Bacteria Urine 1+ (None Seen); Hyaline Casts Urine 0-2 /LPF (0-2); RBC Urine 0-2 /HPF (0-2); Squamous Epithelial Cell Urine >20 /HPF (0-2)
[2022-04-21 14:29] LABS: Erythrocyte Sedimentation Rate 17 MM/HR (0-20)
[2022-04-21 14:38] LABS: Creatinine Urine 102.71 mg/dL; Protein/Creatinine Ratio, Ur 0.09 (<0.2); Total Protein Urine Random 9 mg/dL (<12)
[2022-04-21 14:39] LABS: Estimated Average Glucose 186 mg/dL; Hemoglobin A1c % 8.1 %
[2022-04-21 14:40] LABS: Alanine Aminotransferase 21 U/L (0-31); Albumin Level 4.1 g/dL (3.5-5.0); Alkaline Phosphatase 104 U/L (39-117); Anion Gap 14 (12-20); Aspartate Amino Transferase 15 U/L (5-31); Bilirubin Total 0.4 mg/dL (0.0-1.0); Blood Urea Nitrogen 19 mg/dL (9-16); C Reactive Protein 0.25 mg/dL (< or = 0.50); Carbon Dioxide 29 mmol/L (22-29); Chloride 103 mmol/L (96-108); Estimated Glomerular Filt Rate 53; Glucose Random 181 mg/dL (60-115); Potassium 4.4 mmol/L (3.3-5.1); Sodium 142 mmol/L (135-145); Total Protein 7.1 g/dL (6.5-8.0)
[2022-04-24 08:28] LABS: HBS Num1 0.21 mIU/mL (0-7.99); HBc Num1 0.08 S/CO (0.00-0.79); HBsAGNum1 0.27 S/CO (0.00-0.99); Hepatitis B Core Antibody Nonreactive (Nonreactive); Hepatitis B Surface Antigen Negative (Negative); ~HepC Num1 0.08 S/CO (0.00-0.79); ~Hepatitis A Antibody IgM Nonreactive (Nonreactive); ~Hepatitis B Surface Antibody NONREACTIVE (Nonreactive); ~Hepatitis C Antibody Nonreactive (Nonreactive)
[2022-04-24 12:34] LABS: TS Negative Control Passed; TS Panel A 7; TS Panel B 7; TS Positive Control Passed; TSpotTB Borderline (Negative)
[2022-04-24 13:24] LABS: IgA 169 mg/dL (70-320); IgG 1389 mg/dL (600-1540); IgM 150 mg/dL (50-300)
[2022-04-24 18:38] LABS: Complement C3 123 mg/dL (83-193)
[2022-04-24 22:14] LABS: Beta-2 Glycoprotein IgA <2.0 U/mL (<20.0); Beta-2 Glycoprotein IgG <2.0 U/mL (<20.0); Beta-2 Glycoprotein IgM <2.0 U/mL (<20.0)
[2022-04-25 06:14] LABS: Prot Elec - Albumin 3.9 g/dL (3.8-4.8); Prot Elec - Alpha1 0.3 g/dL (0.2-0.3); Prot Elec - Beta 1 0.4 g/dL (0.4-0.6); Prot Elec - Beta 2 0.3 g/dL (0.2-0.5); Prot Elec - Gamma 1.3 g/dL (0.8-1.7); Prot Elec - Total Protein 7.1 g/dL (6.1-8.1)
[2022-04-25 18:53] LABS: Cyclic Citrullinated Peptide >250 UNITS
[2022-04-26 13:24] LABS: Anti DNA DS Antibody 1 IU/mL; Antibody to SS-A Antigen <1.0 NEG AI (<1.0 NEG); Antibody to SS-B Antigen <1.0 NEG AI (<1.0 NEG); SM/Ribonucleoprotein Ab <1.0 NEG AI (<1.0 NEG); Smith Protein <1.0 NEG AI (<1.0 NEG)
[2022-04-26 16:53] LABS: DNAds, Crithidia Antibody Negative (Negative)
[2022-04-27 13:28] LABS: Cardiolipin IgG Ab <2.0 GPL-U/mL; Cardiolipin IgM Ab <2.0 MPL-U/mL
[2022-04-28 16:13] LABS: PTT (LAC) Screen 29 sec (<=40)
== END 2022-04-21 11:53 | disposition home or self-care (01) ==
LOC: HO.LAB 11:52
PROVIDERS: PCP Internal Medicine; Visit Provider Student in an Organized Health Care Education/Training Program
DX: M32.9 Systemic lupus erythematosus, unspecified (principal); D68.61 Antiphospholipid syndrome; M05.79 Rheumatoid arthritis with rheumatoid factor of multiple sites without organ or systems involvement; J98.4 Other disorders of lung; Z79.899 Other long term (current) drug therapy
CPT/HCPCS: 36415; 80053; 81001; 82784; 83036; 84156; 84165; 85025; 85597; 85613; 85652; 85730; 86140; 86146; 86147; 86160; 86200; 86225; 86235; 86255; 86334; 86481; 86704; 86706; 86709; 86803; 87340; 99202

== ENCOUNTER → 2022-05-02 11:09 | Outpatient (BNVA) | payer OTHER, SELFPAY | PROVIDERS: PCP Internal Medicine; Visit Provider Internal Medicine | DX: J98.4 Other disorders of lung (principal); J30.9 Allergic rhinitis, unspecified; J44.9 Chronic obstructive pulmonary disease, unspecified | CPT/HCPCS: 99212 ==

== ENCOUNTER 2022-05-03 10:38 | Outpatient (REF) | payer OTHER, SELFPAY ==
--- NOTE | ~2022-05-03 | MM_ITS ---
EXAMINATION: BONE DENSITOMETRY CLINICAL INDICATION: Long-term (current) use of systemic steroids. COMPARISON: Baseline BD dated 09/24/2012. TECHNIQUE: Using a [employer] DXA System (software version: 13.1) manufactured by [employer], dual-energy x-ray absorptiometry was performed of the lumbar spine and left hip. The images are of good technical quality. Summary results are attached. FINDINGS: AP SPINE L1-L4: Current: BMD 0.938 g/cm2, Z-score -0.6, T-score -2.0, osteopenia, 8.8% decrease from baseline (<5% change is not significant). Baseline: BMD 1.029 g/cm2. LEFT FEMUR, NECK: Current: BMD 0.743 g/cm2, Z-score -0.4, T-score -2.1, osteopenia. Baseline: BMD 0.849 g/cm2. LEFT FEMUR, TOTAL: Current: BMD 0.746 g/cm2, Z-score -0.5, T-score -2.1, osteopenia, 18.0% decrease from baseline (<5% change is not significant). Baseline: BMD 0.910 g/cm2. IDENTIFIED RISK FACTORS: Dementia. Recurrent falls. Secondary osteoporosis (early menopause). Chronic glucocorticoids. Bilateral oophorectomy. HISTORY OF FRACTURE: None listed. MEDICATIONS: Calcium supplement and/or multivitamin. MM/XR DEXA axial skeleton IMPRESSION: 1. DIAGNOSIS: Osteopenia based on the lowest T-score value of -2.1 in the femoral neck and total femur applying World Health Organization criteria. 2. 10-YEAR FRACTURE RISK PREDICTION, FRAX: Major osteoporotic fracture (clinical spine, forearm, hip or shoulder) 12.8%. Hip fracture 3.9%. 3. Treatment Recommendations: NOF guidelines recommend consideration for treatment in postmenopausal women and men age 50 and older presenting with the following: -A hip or vertebral (clinical or morphometric) fracture. -T-score less than or equal to -2.5 at the femoral neck or spine after appropriate evaluation to exclude secondary causes. -Low bone mass at the hip or spine and a 10-year fracture probability by FRAX of greater than or equal to 3% for hip fracture or greater than or equal to 20% for major osteoporotic fracture based on the [place] adapted WHO algorithm. 4. Other Recommendations: All treatment decisions require clinical judgment and consideration of individual patient factors, including patient preferences, comorbidities, previous drug use, risk factors not captured in the FRAX model (e.g. frailty, falls, vitamin D deficiency, increased bone turnover, interval significant decline in bone density) and possible under or overestimation of fracture risk by FRAX. Additional medical evaluation for secondary cause of low bone mineral density may be appropriate. FUTURE SCAN RECOMMENDATION: People with diagnosed cases of osteoporosis or at high risk for fracture should have regular bone mineral density tests. For patients eligible for Medicare, routine testing is allowed once every 2 years. The testing frequency can be increased to one year for patients who have rapidly progressing disease, those who are receiving or discontinuing medical therapy to restore bone mass, or have additional risk factors.
== END 2022-05-03 10:39 | disposition home or self-care (01) ==
LOC: HO.MAMMO 10:38
PROVIDERS: Visit Provider Student in an Organized Health Care Education/Training Program
DX: Z13.820 Encounter for screening for osteoporosis (principal); Z79.52 Long term (current) use of systemic steroids; Z78.0 Asymptomatic menopausal state
CPT/HCPCS: 77080

== ENCOUNTER 2022-05-23 10:25 | Outpatient (REF) | payer OTHER, SELFPAY ==
--- NOTE | ~2022-05-23 | CT_ITS ---
EXAMINATION: CT CHEST WITHOUT CONTRAST CLINICAL INFORMATION: Restrictive lung disease. COMPARISON: Chest x-ray 07/29/2021 and CTA chest 05/07/2019. TECHNIQUE: 5 mm thin axial and reformatted 3 mm thin sagittal and coronal images of the chest were obtained without contrast. This CT examination was performed using dose optimization technique as appropriate, variously including the following: Automated exposure control Adjustment of MA and/or KV according to patient size(this includes techniques or standardized protocols for targeted exams where dose is matched to indication/reason for exam; extremities or head. Use of iterative reconstruction techniques. DLP: 109 mGy-cm FINDINGS: Limited lung exam due to patient's breathing motion. LUNGS: The lungs are well expanded and clear of acute pneumonic process. A 3 mm linear density is seen at the left lung apex (image 46/6), a subpleural linear density is seen at the left upper lobe laterally measuring 1.2 cm (axial image 65/6), nonspecific subpleural linear density in the right upper lobe (image 84/6). There is minimal interstitial prominence in both lung bases. No focal nodules are seen. There is some subpleural disease bilaterally in both lower lobes PLEURA: No pleural thickening, effusion or atelectasis. MEDIASTINUM: The central trachea and the bronchi are widely patent. Heart size and the great vessels are normal caliber. Moderate coronary artery calcification is seen. There is no pericardial effusion. No abnormal-sized mediastinal or hilar lymph nodes are seen. The thyroid lobes are somewhat symmetrical and normal. AXILLA: There are no abnormal-sized axillary lymph nodes seen. The chest wall is unremarkable. UPPER ABDOMEN: The visualized liver, spleen, and pancreas are unremarkable. There is dense linear calcification posterior to the stomach. OSSEOUS STRUCTURES: No aggressive lytic or sclerotic process is seen. There are mediastinal sutures from previous intervention. CT/CT chest wo con - High Res IMPRESSION: Scattered subpleural densities in both lungs, likely old inflammatory residual process. No active inflammatory consolidation or effusion is seen.
== END 2022-05-23 10:26 | disposition home or self-care (01) ==
LOC: HO.CT 10:25
PROVIDERS: Visit Provider Student in an Organized Health Care Education/Training Program
DX: J98.4 Other disorders of lung (principal)
CPT/HCPCS: 71250

== ENCOUNTER 2022-08-02 11:58 | Outpatient (REF) | payer OTHER, SELFPAY ==
[2022-08-02 13:17] LABS: MANUAL DIFF FLAG NO
[2022-08-02 14:28] LABS: Basophils Absolute Auto 0.1 X10*3/uL (0.0-0.2); Basophils Percent Auto 0.7 % (0-2); Eosinophils Absolute Auto 0.6 X10*3/uL (0.0-0.4); Eosinophils Percent Auto 6.6 % (0-4); Hematocrit 37.9 % (37.0-47.0); Hemoglobin 11.8 g/dl (12.0-16.0); Imm Gran Abs Auto 0.03 X10*3/uL (0.00-0.03); Imm Gran Pct Auto 0.3 % (0.0-0.4); Lymphocytes Absolute Auto 2.2 X10*3/uL (1.2-4.9); Lymphocytes Percent Auto 24.4 % (20-40); Mean Corpuscular HGB Conc 31.1 g/dl (31.0-35.0); Mean Corpuscular Hemoglobin 28.3 pg (27.0-33.0); Mean Corpuscular Volume 90.9 fL (80.0-98.0); Mean Platelet Volume 11.2 fL (9.4-12.3); Monocytes Absolute Auto 0.8 X10*3/uL (0.1-1.2); Monocytes Percent Auto 8.5 % (2-11); Neutrophils Absolute Auto 5.3 x10*3/uL (2.0-8.3); Neutrophils Percent Auto 59.5 % (45-73); Platelet Count 324 X10*3/uL (160-400); Red Blood Count 4.17 X10*6/uL (4.20-5.50); Red Cell Distribution Width 12.8 % (11.0-16.0); White Blood Count 8.9 X10*3/uL (4.8-10.8)
[2022-08-02 14:42] LABS: Alanine Aminotransferase 12 U/L (0-31); Albumin Level 3.9 g/dL (3.5-5.0); Alkaline Phosphatase 88 U/L (39-117); Anion Gap 14 (12-20); Aspartate Amino Transferase 17 U/L (5-31); Bilirubin Total 0.7 mg/dL (0.0-1.0); Blood Urea Nitrogen 12 mg/dL (9-16); C Reactive Protein 0.84 mg/dL (< or = 0.50); Calcium 9.1 mg/dL (8.4-10.2); Carbon Dioxide 28 mmol/L (22-29); Chloride 107 mmol/L (96-108); Estimated Glomerular Filt Rate 56; Glucose Random 299 mg/dL (60-115); Potassium 4.6 mmol/L (3.3-5.1); Sodium 144 mmol/L (135-145); Total Protein 7.1 g/dL (6.5-8.0)
[2022-08-02 15:16] LABS: Erythrocyte Sedimentation Rate 32 MM/HR (0-20)
[2022-08-04 14:53] LABS: TS Negative Control Passed; TS Panel A 12; TS Panel B 4; TS Positive Control Passed; TSpotTB Positive (Negative)
== END 2022-08-02 11:59 | disposition home or self-care (01) ==
LOC: HO.LAB 11:58
PROVIDERS: PCP Internal Medicine; Visit Provider Student in an Organized Health Care Education/Training Program
DX: Z11.7 Encounter for testing for latent tuberculosis infection (principal); M05.79 Rheumatoid arthritis with rheumatoid factor of multiple sites without organ or systems involvement; M85.89 Other specified disorders of bone density and structure, multiple sites
CPT/HCPCS: 36415; 80053; 85025; 85652; 86140; 86481; 99212

== ENCOUNTER → 2022-08-18 13:01 | Outpatient (BNVA) | payer OTHER, SELFPAY | PROVIDERS: PCP Internal Medicine; Visit Provider Internal Medicine | DX: Z22.7 Latent tuberculosis (principal) | CPT/HCPCS: 99202 ==

== ENCOUNTER → 2022-08-31 10:31 | Outpatient (BNVA) | payer OTHER, SELFPAY | PROVIDERS: PCP Internal Medicine; Visit Provider Internal Medicine | DX: J44.9 Chronic obstructive pulmonary disease, unspecified (principal); J98.4 Other disorders of lung; J30.9 Allergic rhinitis, unspecified; Z22.7 Latent tuberculosis | CPT/HCPCS: 99212 ==

== ENCOUNTER 2022-09-12 12:21 | Outpatient (REF) | payer OTHER, SELFPAY ==
[2022-09-12 12:32] LABS: MANUAL DIFF FLAG NO
[2022-09-12 13:05] LABS: Basophils Absolute Auto 0.1 X10*3/uL (0.0-0.2); Basophils Percent Auto 0.5 % (0-2); Eosinophils Absolute Auto 0.9 X10*3/uL (0.0-0.4); Eosinophils Percent Auto 7.9 % (0-4); Hematocrit 36.3 % (37.0-47.0); Hemoglobin 11.1 g/dl (12.0-16.0); Imm Gran Abs Auto 0.03 X10*3/uL (0.00-0.03); Imm Gran Pct Auto 0.3 % (0.0-0.4); Lymphocytes Absolute Auto 3.3 X10*3/uL (1.2-4.9); Lymphocytes Percent Auto 29.4 % (20-40); Mean Corpuscular HGB Conc 30.6 g/dl (31.0-35.0); Mean Corpuscular Hemoglobin 27.9 pg (27.0-33.0); Mean Corpuscular Volume 91.2 fL (80.0-98.0); Mean Platelet Volume 10.8 fL (9.4-12.3); Monocytes Percent Auto 8.8 % (2-11); Neutrophils Absolute Auto 5.9 x10*3/uL (2.0-8.3); Neutrophils Percent Auto 53.1 % (45-73); Platelet Count 325 X10*3/uL (160-400); Red Blood Count 3.98 X10*6/uL (4.20-5.50); Red Cell Distribution Width 12.6 % (11.0-16.0); White Blood Count 11.1 X10*3/uL (4.8-10.8)
[2022-09-12 13:45] LABS: Erythrocyte Sedimentation Rate 30 MM/HR (0-20)
[2022-09-12 13:48] LABS: Alanine Aminotransferase 18 U/L (0-31); Albumin Level 3.9 g/dL (3.5-5.0); Alkaline Phosphatase 90 U/L (39-117); Anion Gap 14 (12-20); Aspartate Amino Transferase 23 U/L (5-31); Bilirubin Direct 0.2 mg/dL (0.0-0.5); Bilirubin Total 0.6 mg/dL (0.0-1.0); Blood Urea Nitrogen 8 mg/dL (9-16); C Reactive Protein 0.24 mg/dL (< or = 0.50); Calcium 9.7 mg/dL (8.4-10.2); Carbon Dioxide 28 mmol/L (22-29); Chloride 107 mmol/L (96-108); Estimated Glomerular Filt Rate > 60; Glucose Random 194 mg/dL (60-115); Sodium 145 mmol/L (135-145); Total Protein 7.4 g/dL (6.5-8.0)
== END 2022-09-12 12:22 | disposition home or self-care (01) ==
LOC: HO.LAB 12:21
PROVIDERS: Absent Provider Internal Medicine; Visit Provider Student in an Organized Health Care Education/Training Program
DX: M06.9 Rheumatoid arthritis, unspecified (principal); Z22.7 Latent tuberculosis
CPT/HCPCS: 36415; 80053; 80076; 82248; 85025; 85652; 86140

== ENCOUNTER 2022-11-02 11:27 | Outpatient (AMB) | payer OTHER, SELFPAY ==
[2022-11-02 11:36] VITALS: BP 120/60; PULSE 60; O2SAT 96
--- NOTE | 2022-11-02 11:36 | A.OFFVIS_ITS ---
Intake Vital Signs 11/02/22 11:36 Height 4 ft 11 in BP 120/60 Blood Pressure Location Lt brachial Position Sitting Pulse 60 Pulse Source Pulse Oximeter Pulse Oximetry (%) 96 Oxygen Delivery Method Room Air Intake Visit Reasons: Asthma Intake Note: pt is here for follow up and states she is coughing and short of breath. Plaster Lather Required: No Allergies No Known Allergies [No Known Allergies*] Allergy (Verified 11/02/22 11:45) Medication List - Last Reconciled 11/02/22 by Glen Melendez MD albuterol sulfate 1 amp inhalation TID PRN albuterol sulfate 90 mcg/actuation (Ventolin HFA) 2 puffs inhalation Q4H PRN aspirin 81 mg PO BEDTIME atorvastatin 40 mg PO BEDTIME blood sugar diagnostic As directed calcium carbonate-vitamin D3 600 mg-10 mcg (400 unit) 1 tab PO DAILY carvedilol 3.125 mg PO BID cyanocobalamin (vitamin B-12) 1,000 mcg PO DAILY donepezil 10 mg PO DAILY fluoxetine 10 mg PO DAILY fluticasone propion-salmeterol 500-50 mcg/dose 1 ea PO BID fluticasone propionate 50 mcg/actuation 2 sprays intranasal DAILY furosemide 20 mg PO DAILY gabapentin 300 mg PO BEDTIME Incruse Ellipta 62.5 mcg/actuation (umeclidinium) 1 inh inhalation DAILY NS insulin glargine 10 units subcut BEDTIME lancets As directed losartan 25 mg PO DAILY methimazole 10 mg PO BID pen needle, diabetic As directed pyridoxine (vitamin B6) 50 mg PO DAILY 30 days Do you need a note to return to daycare/school/sports/work: No HPI Asthma HPI Details 76 years old female, with multiple medical problems including chronic obstructive and restrictive pulmonary disorder, is here for her r.outine follow-up Continues to have shortness of breath most of the time, even when she is sitting in the wheelchair, and has mild intermittent cough , also has mild nasal congestion. She is chronically weak and debilitated and comes in wheelchair. She has the memory loss . and is supervised by her daughter who is her EVENT SALES REPRESENTATIVE. There has been no significant change in her condition. claims that she continue to use all her meds, including the inhalers. [facility] Medical History Allergic rhinitis Asthma CAD (coronary artery disease) COPD (chronic obstructive pulmonary disease) COPD exacerbation Cough Diabetes Hypertension Latent tuberculosis Restrictive lung disease Surgical History History of hysterectomy Hx of CABG Family History Mother Acute arthritis Social History Household Members: Family Housing: Apartment Do you presently have visiting nurse or other home services: Yes ([facility] and EVENT SALES REPRESENTATIVE) Alcohol intake: never Patient Tobacco Use Status: Never used Tobacco e-Cigarette/Vaping Use: Never Used Second Hand Smoke Exposure: No service: No Current occupational status: unemployed Review of Systems Const All systems reviewed & are unremarkable except as noted in HPI and below Eyes Reports no additional complaints ENT Reports nasal congestion (Mild off and) Card Denies chest pain and Reports dyspnea on exertion Resp Reports as per HPI and Reports dyspnea on exertion GI Reports no additional complaints Reports no additional complaints Musc Reports back pain Skin/Breast Reports system reviewed and no additional complaints, except as documented Neuro Reports no additional complaints Psych Reports anxiety Endo Reports no additional complaints Uche/Lymph Reports no additional complaints Physical Exam Vital Signs: Last Vital Signs Pulse 60 11/02/22 11:36 BP 120/60 11/02/22 11:36 Pulse Ox 96 11/02/22 11:36 Oxygen Delivery Method Room Air 11/02/22 11:36 Const General: comfortable (But short of breath during conversation), no acute distress, alert and awake Orientation/consciousness: patient oriented x3 HEENT Head: Yes normal to inspection General nose exam: No nasal polyps present and No nasal discharge present Face and sinus: Yes sinuses nontender Mouth: oropharynx normal Throat: Yes posterior oropharynx normal Eyes General: appearance normal, both eyes and all related structures Neck Neck: Yes normal visual inspection, Yes no lymphadenopathy, Yes trachea midline and Yes no JVD Thyroid: Thyroid normal Chest Chest palpation & inspection: abnormal inspection of the chest (Midline sternal scar from previous cardiac surgery), normal palpation of entire chest wall and no tenderness Resp Other: Percussion note is resonant, breath sounds are distant with prolonged, expiratory phase No active wheezes or crepitations are heard today. Cardio Palpation: normal PMI Rate: regular rate Rhythm: regular rhythm Heart sounds: no gallops and no murmurs GI Palpation (GI): Soft to palpation, nontender, No hepatosplenomegaly present and no masses Auscultation: normal bowel sounds Back/Spine/Pelvis Thoracic/Lumbar Spine: thoracic and lumbar spine normal to inspection Skin General skin exam: no rashes or lesions noted Neuro General: patient oriented x3 and no focal motor deficits Cranial nerves: Yes CN's II-XII intact bilaterally Extrem General: Yes normal to inspection, Yes no clubbing, cyanosis or edema and Yes no calf tenderness Psych Appearance: grossly normal Speech and movement: Normal speech and movement present Affect: Anxious affect present Assessment & Plan Assessment & Plan (1) COPD (chronic obstructive pulmonary disease): Comment: This patient has long-standing history of chronic obstructive pulmonary disease. She appears to be fairly stable at this time. Pulmonary function test showed mostly restrictive pulmonary disorder. But the obstructive component cannot be ruled out. She is doing well with the following inhalers. [place] : . ADVAIR 250-50 1 INHALATION B.I.D., INCRUSE ELLIPTA 1 INHALATION DAILY, DUONEB UPDRAFT Q 4-6 HOURS P.R.N../ Ventolin 2 puufs q 6 hrs PRN Code(s): J44.9 - Chronic obstructive pulmonary disease, unspecified (2) Allergic rhinitis: Comment: This is chronic , seems well controlled . Continue to use Flonase 2 sprays in each nostril daily . Code(s): J30.9 - Allergic rhinitis, unspecified (3) Restrictive lung disease: Comment: This patient has had previous chest surgery, has a long mid sternal scar. Pulmonary function test has shown moderately severe restrictive pulmonary disorder. This is mainly the reason for her shortness of breath on exertion. She has been advised to keep on doing deep breathing exercises at least 3 times a day. Code(s): J98.4 - Other disorders of lung (4) Latent tuberculosis: Comment: FOR HER RHEUMATOID ARTHRITIS BEING CONSIDERED FOR BIOLOGIC TREATMENT. SHE HAD SCREENING FOR LATENT TB. T SPOT TEST WAS POSITIVE. PATIENT HAS BEEN SEEN BY Keyanna AVILA, ID SPECIALIST, WHO IS TREATING HER WITH : INH 300 MG A DAY ALONG WITH PYRIDOXINE( B6) FOR 6 MINUTES. Code(s): Z22.7 - Latent tuberculosis Coding Level of Care Code Est Pt Level 4 (72602) Diagnoses COPD (chronic obstructive pulmonary disease) J44.9 Allergic rhinitis J30.9 Restrictive lung disease J98.4 Latent tuberculosis Z22.7
== END 2022-11-02 12:01 | disposition home or self-care (01) ==
PROVIDERS: PCP Internal Medicine; Visit Provider Internal Medicine
DX: J44.9 Chronic obstructive pulmonary disease, unspecified (principal); J30.9 Allergic rhinitis, unspecified; J98.4 Other disorders of lung; Z22.7 Latent tuberculosis
CPT/HCPCS: 99214

== ENCOUNTER → 2022-11-02 11:27 | Outpatient (BNVA) | payer OTHER, SELFPAY | PROVIDERS: PCP Internal Medicine; Visit Provider Internal Medicine | DX: J44.9 Chronic obstructive pulmonary disease, unspecified (principal); J30.9 Allergic rhinitis, unspecified; J98.4 Other disorders of lung; Z22.7 Latent tuberculosis | CPT/HCPCS: 99212 ==

== ENCOUNTER 2022-11-02 14:24 | Outpatient (REF) | payer OTHER, SELFPAY ==
[2022-11-02 16:50] LABS: Alanine Aminotransferase 31 U/L (0-31); Albumin Level 3.7 g/dL (3.5-5.0); Alkaline Phosphatase 118 U/L (39-117); Aspartate Amino Transferase 32 U/L (5-31); Bilirubin Direct 0.2 mg/dL (0.0-0.5); Bilirubin Total 0.4 mg/dL (0.0-1.0); Total Protein 7.6 g/dL (6.5-8.0)
[2022-11-02 17:08] LABS: TSH reflex Free T4 < 0.01 uIU/mL (0.32-4.0)
[2022-11-02 17:52] LABS: Free T4 (Free Thyroxine) 1.72 ng/dL (0.71-1.85)
[2022-11-04 16:34] LABS: TS Negative Control Passed; TS Panel A 16; TS Panel B 23; TS Positive Control Passed; TSpotTB Positive (Negative)
== END 2022-11-02 14:25 | disposition home or self-care (01) ==
LOC: HO.HHCL 14:24
PROVIDERS: Visit Provider Registered Nurse
DX: Z11.1 Encounter for screening for respiratory tuberculosis (principal); E05.90 Thyrotoxicosis, unspecified without thyrotoxic crisis or storm; J44.9 Chronic obstructive pulmonary disease, unspecified; J30.9 Allergic rhinitis, unspecified; J98.4 Other disorders of lung; Z22.7 Latent tuberculosis
CPT/HCPCS: 36415; 80076; 84439; 84443; 86481

== ENCOUNTER 2023-03-20 12:56 | Outpatient (REF) | payer OTHER, SELFPAY ==
[2023-03-20 13:54] LABS: Hematocrit 38.3 % (37.0-47.0); Mean Corpuscular HGB Conc 31.3 g/dl (31.0-35.0); Mean Corpuscular Hemoglobin 28.6 pg (27.0-33.0); Mean Corpuscular Volume 91.4 fL (80.0-98.0); Mean Platelet Volume 11.5 fL (9.4-12.3); Platelet Count 314 X10*3/uL (160-400); Red Blood Count 4.19 X10*6/uL (4.20-5.50)
[2023-03-20 14:02] LABS: Estimated Average Glucose 143 mg/dL; Hemoglobin A1c % 6.6 % (<6.0)
[2023-03-20 14:33] LABS: Alanine Aminotransferase 42 U/L (0-31); Albumin Level 4.2 g/dL (3.5-5.0); Alkaline Phosphatase 151 U/L (39-117); Anion Gap 13 (12-20); Aspartate Amino Transferase 36 U/L (5-31); Bilirubin Total 0.5 mg/dL (0.0-1.0); Blood Urea Nitrogen 16 mg/dL (9-16); Calcium 9.3 mg/dL (8.4-10.2); Carbon Dioxide 28 mmol/L (22-29); Chloride 108 mmol/L (96-108); Cholesterol 153 mg/dL (<200); Estimated Glomerular Filt Rate > 60; Glucose Random 136 mg/dL (60-115); HDL Cholesterol 68 mg/dL (>40); LDL Cholesterol Calculated 71 mg/dL (<100); Potassium 4.1 mmol/L (3.3-5.1); Sodium 145 mmol/L (135-145); Triglycerides 71 mg/dL (<150)
[2023-03-20 14:48] LABS: Free T4 (Free Thyroxine) 0.81 ng/dL (0.71-1.85); Thyroid Stimulating Hormone 1.41 uIU/mL (0.32-4.0)
[2023-03-20 15:01] LABS: Folate 6.5 ng/mL (> or = 4.0); Vitamin B12 > 2000 pg/mL (200-900)
[2023-03-21 04:35] LABS: Syphilis Screen Nonreactive (Nonreactive)
[2023-03-21 05:01] LABS: HBS Num1 0.19 mIU/mL (0-7.99); HBc Num1 0.08 S/CO (0.00-0.79); HBsAGNum1 0.31 S/CO (0.00-0.99); HIV AB/AG Nonreactive (Nonreactive); HIV Num 1 0.08 S/CO (0.00-0.99); Hepatitis B Core Antibody Nonreactive (Nonreactive); Hepatitis B Surface Antigen Negative (Negative); ~HepC Num1 0.11 S/CO (0.00-0.79); ~Hepatitis B Surface Antibody NONREACTIVE (Nonreactive); ~Hepatitis C Antibody Nonreactive (Nonreactive)
[2023-03-21 05:56] LABS: CT PCR NOT DETECTED (Not Detect.); NG PCR NOT DETECTED (Not Detect.)
[2023-03-24 19:08] LABS: Alkaline Phosphatase Bone 19.5 mcg/L (see note)
== END 2023-03-20 12:57 | disposition home or self-care (01) ==
LOC: HO.LAB 12:56
PROVIDERS: PCP Student in an Organized Health Care Education/Training Program; Visit Provider Student in an Organized Health Care Education/Training Program
DX: Z00.00 Encounter for general adult medical examination without abnormal findings (principal); G89.29 Other chronic pain; M25.511 Pain in right shoulder; M25.512 Pain in left shoulder; Z11.59 Encounter for screening for other viral diseases; Z72.89 Other problems related to lifestyle
CPT/HCPCS: 0353U; 36415; 73030; 80053; 80061; 82607; 82746; 83036; 84075; 84439; 84443; 85027; 86704; 86706; 86780; 86803; 87340; 87389

== ENCOUNTER 2023-04-19 10:22 | Outpatient (AMB) | payer OTHER, SELFPAY ==
--- NOTE | 2023-04-19 10:27 | A.OFFVIS_ITS ---
Intake Vital Signs 04/19/23 10:28 Height 4 ft 11 in Weight 126 lb 12.253 oz BMI 25.6 BP 120/58 L Blood Pressure Location Lt brachial Position Sitting Pulse 71 Pulse Source Pulse Oximeter Pulse Oximetry (%) 95 Oxygen Delivery Method Room Air Intake Visit Reasons: asthma Intake Note: pt is here for follow up and states she is doing okay Esol Instructor Required: No Allergies No Known Allergies [No Known Allergies*] Allergy (Verified 04/19/23 10:31) Medication List - Last Reconciled 04/19/23 by Glen Melendez MD albuterol sulfate 1 amp inhalation TID PRN albuterol sulfate 90 mcg/actuation (Ventolin HFA) 2 puffs inhalation Q4H PRN aspirin 81 mg PO BEDTIME atorvastatin 40 mg PO BEDTIME blood sugar diagnostic As directed calcium carbonate-vitamin D3 600 mg-10 mcg (400 unit) 1 tab PO DAILY carvedilol 3.125 mg PO BID cyanocobalamin (vitamin B-12) 1,000 mcg PO DAILY donepezil 10 mg PO DAILY fluoxetine 10 mg PO DAILY fluticasone propion-salmeterol 500-50 mcg/dose 1 ea PO BID fluticasone propionate 50 mcg/actuation 2 sprays intranasal DAILY furosemide 20 mg PO DAILY gabapentin 300 mg PO BEDTIME Incruse Ellipta 62.5 mcg/actuation (umeclidinium) 1 inh inhalation DAILY NS insulin glargine 10 units subcut BEDTIME lancets As directed losartan 25 mg PO DAILY methimazole 10 mg PO BID pen needle, diabetic As directed pyridoxine (vitamin B6) 50 mg PO DAILY 30 days Do you need a note to return to daycare/school/sports/work: No HPI asthma HPI Details 77 YEARS OLD FEMALE IS HERE FOR 6 MONTHS FOLLOW-UP FOR HER COPD. SHE HAS STAYED VERY STABLE DURING THE PAST 6 MONTHS, SHE HAS HAD NO ACUTE EXACERBATION. SHE IS USING HER INHALERS REGULARLY. FOR NASAL CONGESTION SHE USES FLONASE REGULARLY. SHE WAS FOUND TO HAVE LATENT TB. AND HAS BEEN ON INH PLUS PYRIDOXINE FOR THE LAST 6 MONTHS. SHE WILL BE SEEING DR. AVILA NEXT WEEK FOR FOLLOW-UP. FROM RESPIRATORY POINT OF VIEW SHE HAS BEEN HOLDING VERY STABLE. [facility] Medical History Latent tuberculosis Restrictive lung disease CAD (coronary artery disease) Asthma Allergic rhinitis COPD exacerbation COPD (chronic obstructive pulmonary disease) Cough Hypertension Diabetes Surgical History History of hysterectomy Hx of CABG Family History Mother Acute arthritis Social History Household Members: Family Housing: Apartment Do you presently have visiting nurse or other home services: Yes ([facility] and INSURANCE FOLLOW UP REPRESENTATIVE) Alcohol intake: never Patient Tobacco Use Status: Never used Tobacco e-Cigarette/Vaping Use: Never Used Second Hand Smoke Exposure: No service: No Current occupational status: unemployed Review of Systems Const All systems reviewed & are unremarkable except as noted in HPI and below Eyes Reports no additional complaints ENT Reports nasal congestion (Mild off and) Card Denies chest pain and Reports dyspnea on exertion Resp Reports as per HPI and Reports dyspnea on exertion GI Reports no additional complaints Reports no additional complaints Musc Reports back pain Skin/Breast Reports system reviewed and no additional complaints, except as documented Neuro Reports no additional complaints Psych Reports anxiety Endo Reports no additional complaints Uche/Lymph Reports no additional complaints Physical Exam Const General: comfortable (But short of breath during conversation), no acute distress, alert and awake Orientation/consciousness: patient oriented x3 HEENT Head: Yes normal to inspection General nose exam: No nasal polyps present and No nasal discharge present Face and sinus: Yes sinuses nontender Mouth: oropharynx normal Throat: Yes posterior oropharynx normal Eyes General: appearance normal, both eyes and all related structures Neck Neck: Yes normal visual inspection, Yes no lymphadenopathy, Yes trachea midline and Yes no JVD Thyroid: Thyroid normal Chest Chest palpation & inspection: abnormal inspection of the chest (Midline sternal scar from previous cardiac surgery), normal palpation of entire chest wall and no tenderness Resp Other: Percussion note is resonant, breath sounds are distant with prolonged, expiratory phase No active wheezes or crepitations are heard today. Cardio Palpation: normal PMI Rate: regular rate Rhythm: regular rhythm Heart sounds: no gallops and no murmurs GI Palpation (GI): Soft to palpation, nontender, No hepatosplenomegaly present and no masses Auscultation: normal bowel sounds Back/Spine/Pelvis Thoracic/Lumbar Spine: thoracic and lumbar spine normal to inspection Skin General skin exam: no rashes or lesions noted Neuro General: patient oriented x3 and no focal motor deficits Cranial nerves: Yes CN's II-XII intact bilaterally Extrem General: Yes normal to inspection, Yes no clubbing, cyanosis or edema and Yes no calf tenderness Psych Appearance: grossly normal Speech and movement: Normal speech and movement present Affect: Anxious affect present Assessment & Plan Assessment & Plan (1) COPD (chronic obstructive pulmonary disease): Comment: This patient has long-standing history of chronic obstructive pulmonary disease. She appears to be fairly stable at this time. Pulmonary function test showed mostly restrictive pulmonary disorder. But the obstructive component cannot be ruled out. She is doing well with the following inhalers. Code(s): J44.9 - Chronic obstructive pulmonary disease, unspecified Plan: TX : . ADVAIR 250-50 1 INHALATION B.I.D., INCRUSE ELLIPTA 1 INHALATION DAILY, DUONEB UPDRAFT Q 4-6 HOURS P.R.N../ Ventolin 2 puufs q 6 hrs PRN (2) Allergic rhinitis: Comment: This is chronic , seems well controlled . Code(s): J30.9 - Allergic rhinitis, unspecified Plan: Continue to use Flonase 2 sprays in each nostril daily . (3) Restrictive lung disease: Comment: This patient has had previous chest surgery, has a long mid sternal scar. Pulmonary function test has shown moderately severe restrictive pulmonary disorder. This is mainly the reason for her shortness of breath on exertion. Code(s): J98.4 - Other disorders of lung Plan: PATIENT HAS BEEN ADVISED TO DO DEEP BREATHING EXERCISES 2 OR 3 TIMES A DAY, HOWEVER SHE DOES HAVE POOR UNDERSTANDING. (4) Latent tuberculosis: Comment: FOR HER RHEUMATOID ARTHRITIS BEING CONSIDERED FOR BIOLOGIC TREATMENT. SHE HAD SCREENING FOR LATENT TB. T SPOT TEST WAS POSITIVE. PATIENT HAS BEEN SEEN BY E DR. AVILA, ID SPECIALIST, WHO IS TREATING HER WITH : INH 300 MG A DAY ALONG WITH PYRIDOXINE( B6) FOR 6 MINUTES. SHE HAS COMPLETED THAT COURSE, ON EVENT FULLY. Code(s): Z22.7 - Latent tuberculosis Plan: ABOVE Coding Level of Care Code Est Pt Level 3 (80172) Diagnoses COPD (chronic obstructive pulmonary disease) J44.9 Allergic rhinitis J30.9 Restrictive lung disease J98.4 Latent tuberculosis Z22.7
[2023-04-19 10:28] VITALS: BP 120/58; PULSE 71; O2SAT 95; BMI 25.6
== END 2023-04-19 10:39 | disposition home or self-care (01) ==
PROVIDERS: PCP Internal Medicine; Visit Provider Internal Medicine
DX: J44.9 Chronic obstructive pulmonary disease, unspecified (principal); J30.9 Allergic rhinitis, unspecified; J98.4 Other disorders of lung; Z22.7 Latent tuberculosis
CPT/HCPCS: 99213

== ENCOUNTER → 2023-04-19 10:22 | Outpatient (BNVA) | payer OTHER, SELFPAY | PROVIDERS: PCP Internal Medicine; Visit Provider Internal Medicine | DX: J44.9 Chronic obstructive pulmonary disease, unspecified (principal); J30.9 Allergic rhinitis, unspecified; J98.4 Other disorders of lung; Z22.7 Latent tuberculosis | CPT/HCPCS: 99212 ==

== ENCOUNTER 2023-04-23 11:48 | Outpatient (AMB) | payer OTHER, SELFPAY ==
--- NOTE | 2023-04-23 11:46 | MHC.OFFVIS ---
Intake Vital Signs 04/23/23 11:47 Height 4 ft 11 in Weight 128 lb BMI 25.9 BP 149/70 H Blood Pressure Location Lt brachial Position Sitting Pulse 55 Pulse Oximetry (%) 98 Oxygen Delivery Method Room Air Intake Visit Reasons: f/u,tuberculosisi no labs needed per Beverage Manager Required: Yes Beverage Manager Name: Christopher Headley CMA Information Interpreted: clinical only Allergies No Known Allergies [No Known Allergies*] Allergy (Verified 04/23/23 11:55) HPI f/u,tuberculosisi no labs needed per HPI Details She says completed six month course of INH and B6. She has no respiratory complaints and does not appear to be on biologics either. She denies hemoptysis or lymphadenopathy. [facility] Medical History Latent tuberculosis Restrictive lung disease CAD (coronary artery disease) Asthma Allergic rhinitis COPD exacerbation COPD (chronic obstructive pulmonary disease) Cough Hypertension Diabetes Surgical History History of hysterectomy Hx of CABG Family History Mother Acute arthritis Social History Household Members: Family Housing: Apartment Do you presently have visiting nurse or other home services: Yes ([facility] and [facility]) Alcohol intake: never Patient Tobacco Use Status: Never used Tobacco e-Cigarette/Vaping Use: Never Used Second Hand Smoke Exposure: No service: No Current occupational status: unemployed Review of Systems Const All systems reviewed & are unremarkable except as noted in HPI and below Physical Exam Vital Signs: Last Vital Signs Pulse 55 04/23/23 11:47 BP 149/70 H 04/23/23 11:47 Pulse Ox 98 04/23/23 11:47 Oxygen Delivery Method Room Air 04/23/23 11:47 BMI result Body Mass Index 25.9 Const General: cooperative Orientation/consciousness: patient oriented x3 HEENT Head: Yes normal to inspection Mouth: Normal oral and palatal mucosa present Eyes General: appearance normal, both eyes and all related structures Pupils: Equal, round and reactive pupils present Resp Effort & Inspection: normal respiratory effort Cardio Rate: regular rate Rhythm: regular rhythm GI Palpation (GI): Soft to palpation and nontender General: Yes no CVA tenderness Back/Spine/Pelvis Back: no CVA tenderness Skin General skin exam: no rashes or lesions noted Neuro General: patient oriented x3 Cranial nerves: Yes CN's II-XII intact bilaterally and Yes Equal, round and reactive pupils present Extrem General: Yes normal to inspection Psych Appearance: grossly normal Assessment & Plan Assessment & Plan (1) Latent tuberculosis: Comment: She is doing well Code(s): Z22.7 - Latent tuberculosis Plan: No further appointments Can take biologics Coding Level of Care Code Est Pt Level 3 (61479) Diagnoses Latent tuberculosis Z22.7
[2023-04-23 11:47] VITALS: BP 149/70; PULSE 55; O2SAT 98; BMI 25.9
== END 2023-04-23 12:57 | disposition home or self-care (01) ==
PROVIDERS: PCP Student in an Organized Health Care Education/Training Program; Visit Provider Internal Medicine
DX: Z22.7 Latent tuberculosis (principal)
CPT/HCPCS: 99213

== ENCOUNTER → 2023-04-23 11:48 | Outpatient (BNVA) | payer OTHER, SELFPAY | PROVIDERS: PCP Student in an Organized Health Care Education/Training Program; Visit Provider Internal Medicine | DX: Z22.7 Latent tuberculosis (principal) | CPT/HCPCS: 99212 ==

== ENCOUNTER 2023-05-30 11:02 | Outpatient (AMB) | payer OTHER, SELFPAY ==
[2023-05-30 11:04] VITALS: BP 148/62; PULSE 77; O2SAT 99; BMI 25.6
--- NOTE | 2023-05-30 11:04 | MHC.OFFVIS ---
Intake Vital Signs 05/30/23 11:04 Height 4 ft 11 in Weight 126 lb 8.725 oz BMI 25.6 BP 148/62 H Blood Pressure Location Rt brachial Position Sitting Pulse 77 Pulse Source Pulse Oximeter Pulse Oximetry (%) 99 Oxygen Delivery Method Room Air Intake Visit Reasons: RA Intake Note: Patient last seen 08/02/22 presents today for follow up and test results. Freight Brake Operator Required: Yes Freight Brake Operator Language: Center Customer Service Associate Name: [email or web address] Accompanied by: Daughter Allergies No Known Allergies [No Known Allergies*] Allergy (Verified 05/30/23 11:11) Medication List - Last Reconciled 05/30/23 by Sarah Anderson MD alendronate 70 mg PO QWEEK aspirin 81 mg PO BEDTIME atorvastatin 40 mg PO BEDTIME blood sugar diagnostic As directed calcium carbonate-vitamin D3 600 mg-10 mcg (400 unit) 1 tab PO DAILY carvedilol 3.125 mg PO BID celecoxib 200 mg PO DAILY cyanocobalamin (vitamin B-12) 1,000 mcg PO DAILY donepezil 10 mg PO DAILY fluoxetine 10 mg PO DAILY fluticasone propion-salmeterol 500-50 mcg/dose 1 ea PO BID fluticasone propionate 50 mcg/actuation 2 sprays intranasal DAILY furosemide 20 mg PO DAILY gabapentin 300 mg PO BEDTIME lancets As directed losartan 25 mg PO DAILY methimazole 10 mg PO BID pen needle, diabetic As directed pyridoxine (vitamin B6) 50 mg PO DAILY 30 days HPI HPI Comments History of Present Illness Details 77-year-old female with seropositive RA returns for follow-up. She completed 6 months latent TB treatment with INH and pyridoxine. She over the last 1-2 weeks she has been having an upper respiratory tract infection, she has been having increased cough productive of green sputum. She does not recall having any fevers. She continues to have diffuse pain everywhere especially in her hands and feet. She was started on alendronate by her PCP 2 weeks ago Initial history: This is a 76-year-old female with a past medical history of asthma, COPD, rheumatoid arthritis, diabetes mellitus, presents for evaluation of rheumatoid arthritis. Patient apparently has history of dementia and is not a good historian. She is here with her granddaughter. Patient mentions she was diagnosed with rheumatoid arthritis many years ago in [place] and she not specify whether she used to see a cigarette package examiner and whether she was on medications for RA. Patient states she takes Tylenol and sometimes prednisone for her joint pain. She has severe joint pain and swelling in her wrists, knuckles, fingers, knees, ankles. 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) Alcohol intake: never Patient Tobacco Use Status: Never used Tobacco e-Cigarette/Vaping Use: Never Used Second Hand Smoke Exposure: No service: No Current occupational status: unemployed Review of Systems Card Reports dyspnea Resp Reports change in phlegm color, Reports cough, Reports excessive phlegm production and Reports dyspnea Musc Reports deformity, Reports arthralgias and Reports joint swelling Physical Exam Vital Signs: Last Vital Signs Pulse 77 05/30/23 11:04 BP 148/62 H 05/30/23 11:04 Pulse Ox 99 05/30/23 11:04 Oxygen Delivery Method Room Air 05/30/23 11:04 BMI result Body Mass Index 25.6 Const General: cooperative Nutritional Appearance: overweight Limitations: no limitations HEENT Head: Yes normocephalic and Yes atraumatic Mouth: moist mucous membranes Resp Other: Appears short of breath Distant breath sounds Rhonchi Effort & Inspection: prolonged expiratory phase Cardio Rate: regular rate Rhythm: regular rhythm GI Inspection: No distended Palpation (GI): Soft to palpation and nontender Extrem Other: Diffuse synovitis affecting her wrists, MCPs, PIPs Multiple tender MTPs bilaterally Significantly limited range of motion of both shoulders Normal nailfold capillaroscopy Assessment & Plan Assessment & Plan (1) Rheumatoid arthritis: Comment: ++RF+++CCP dx many years ago. Unknown previous DMARDs SSZ started 08/08 stopped due to transaminitis Code(s): M06.9 - Rheumatoid arthritis, unspecified Qualifiers: Rheumatoid arthritis location: multiple sites Rheumatoid factor presence: with rheumatoid factor Qualified Code(s): M05.79 - Rheumatoid arthritis with rheumatoid factor of multiple sites without organ or systems involvement Plan: This is a 77-year-old female with seropositive RA who returns for follow-up. She has not on DMARDs. She continues to have active synovitis. Patient had transaminitis with sulfasalazine (might have been related to INH as well) Patient seems to be having an upper respiratory tract infection. Advised patient to seek evaluation by her PCP or facilities director soon as she can. Would avoid biologic DMARDs at this point. Will consider hydroxychloroquine. Check an EKG to evaluate QTC interval Labs before next visit in 10 weeks Patient has restrictive lung disease, there are no significant signs of RA ILD D on CT chest (2) Osteopenia: Code(s): M85.80 - Other specified disorders of bone density and structure, unspecified site Qualifiers: Osteopenia location: multiple sites Qualified Code(s): M85.89 - Other specified disorders of bone density and structure, multiple sites Plan: DEXA shows osteopenia but with a high FRAX score a, started on liquid alendronate by PCP 2 weeks ago Plan I spent 23 minutes reviewing patient's chart, evaluating patient, ordering diagnostic workup, counseling patient and documenting in the chart Orders: Orders ECG 12 lead EKG Today Z51.81 - Encounter for therapeutic drug level monitoring Comprehensive Met. Panel 10 Weeks M06.9 - Rheumatoid arthritis, unspecified C Reactive Protein 10 Weeks M06.9 - Rheumatoid arthritis, unspecified Erythrocyte Sedimentation Rate 10 Weeks M06.9 - Rheumatoid arthritis, unspecified Complete Blood Count Auto Diff 10 Weeks M06.9 - Rheumatoid arthritis, unspecified Coding Level of Care Code Est Pt Level 4 (28226) Diagnoses Rheumatoid arthritis involving multiple sites with positive rheumatoid factor M05.79 Rheumatoid arthritis location: multiple sites Rheumatoid factor presence: with rheumatoid factor Osteopenia of multiple sites M85.89 Osteopenia location: multiple sites
== END 2023-05-30 11:36 | disposition home or self-care (01) ==
PROVIDERS: PCP Student in an Organized Health Care Education/Training Program; Visit Provider Student in an Organized Health Care Education/Training Program
DX: M05.79 Rheumatoid arthritis with rheumatoid factor of multiple sites without organ or systems involvement (principal); M85.89 Other specified disorders of bone density and structure, multiple sites
CPT/HCPCS: 99214

== ENCOUNTER → 2023-05-30 11:02 | Outpatient (BNVA) | payer OTHER, SELFPAY | PROVIDERS: PCP Student in an Organized Health Care Education/Training Program; Visit Provider Student in an Organized Health Care Education/Training Program | DX: M05.79 Rheumatoid arthritis with rheumatoid factor of multiple sites without organ or systems involvement (principal); M85.89 Other specified disorders of bone density and structure, multiple sites; Z79.899 Other long term (current) drug therapy | CPT/HCPCS: 99212 ==

== ENCOUNTER 2023-06-12 12:35 | Outpatient (REF) | payer OTHER, SELFPAY | END 2023-06-12 12:36 | disposition home or self-care (01) | LOC: HO.MAMMO 12:35 | PROVIDERS: PCP Student in an Organized Health Care Education/Training Program; Visit Provider Student in an Organized Health Care Education/Training Program | DX: Z12.31 Encounter for screening mammogram for malignant neoplasm of breast (principal) | CPT/HCPCS: 77063; 77067 ==

== ENCOUNTER → 2023-06-12 12:45 | Outpatient (BNV) | payer OTHER, SELFPAY | PROVIDERS: PCP Student in an Organized Health Care Education/Training Program; Visit Provider Radiology Diagnostic Radiology | DX: Z12.31 Encounter for screening mammogram for malignant neoplasm of breast (principal) | CPT/HCPCS: 77063; 77067 ==

== ENCOUNTER 2023-06-25 10:00 | Outpatient (RCR) | payer OTHER, SELFPAY ==
[2023-05-31 11:43] VITALS: BP 155/71; PULSE 71; RESP 14; O2SAT 99
== END 2023-06-25 12:31 | disposition home or self-care (01) ==
LOC: HO.PT 10:00
PROVIDERS: PCP Student in an Organized Health Care Education/Training Program; Visit Provider Student in an Organized Health Care Education/Training Program
DX: M19.011 Primary osteoarthritis, right shoulder (principal); M19.012 Primary osteoarthritis, left shoulder
CPT/HCPCS: 97110; 97140; 97161; 97530

== ENCOUNTER 2023-07-31 09:52 | Outpatient (AMB) | payer OTHER, SELFPAY ==
[2023-07-31 10:09] VITALS: BP 187/83; PULSE 60; BMI 25.4
--- NOTE | 2023-07-31 10:09 | MHC.OFFVIS ---
Vital Signs 07/31/23 10:09 Height 4 ft 11 in Weight 125 lb 10.616 oz BMI 25.4 BP 187/83 H Blood Pressure Location Lt brachial Position Sitting Pulse 60 Intake Visit Reasons: Epigastric Pains Intake Note: Hue presents in the office as a new patient for epigastric pains. CC: Pains in the stomach and she has issues with diarrhea. She states that she is not having any blood when she has a BM. Stationary Boiler Fireman Required: Yes Stationary Boiler Fireman Name: Granddaughter Allergies No Known Allergies [No Known Allergies*] Allergy (Verified 07/31/23 10:12) HPI HPI Epigastric Pains: Details: 77-year-old female with past medical history of hypercholesteremia, diabetes, hypertension, GERD, nausea, arthritis, restrictive lung disease, COPD, hyperthyroidism is here today for initial consultation. Patient was sent to us by her PCP. Patient reports to have postprandial epigastric pain any time she is eating. Patient reports severe abdominal bloating all the time not just after eating. Patient denies any nausea or vomiting. Reports that she is not moving her bowels well. Occasional loose stools and constipation. Patient reports postprandial diarrhea. Granddaughter reports that patient has loose stools when coughing. Patient denies melena, hematochezia, unintentional weight loss or ribbon like stools. Patient reports dyspepsia and dysphagia without odynophagia PFSH Medical History Latent tuberculosis Restrictive lung disease CAD (coronary artery disease) Asthma Allergic rhinitis COPD exacerbation COPD (chronic obstructive pulmonary disease) Cough Hypertension Diabetes Surgical History History of hysterectomy Hx of CABG Family History Mother Acute arthritis Social History Household Members: Family Housing: Apartment Do you presently have visiting nurse or other home services: Yes ([facility]NA and PHLEBOTOMIST PRN) Alcohol intake: never Patient Tobacco Use Status: Never used Tobacco e-Cigarette/Vaping Use: Never Used Second Hand Smoke Exposure: No service: No Current occupational status: unemployed Review of Systems Const Denies weight gain and Denies weight loss ENT Reports no additional complaints, Reports dysphagia and Denies odynophagia Card Reports no additional complaints Resp Reports no additional complaints GI Reports abdominal pain (Epigastric), Denies belching, Denies melena, Reports bloating, Reports constipation, Reports dysphagia, Denies excessive flatus, Reports dyspepsia, Reports heartburn, Denies diarrhea, Reports loose stools, Denies nausea, Denies odynophagia and Denies vomiting Reports no additional complaints Musc Reports no additional complaints Neuro Reports no additional complaints Psych Reports no additional complaints Endo Reports no additional complaints Physical Exam Vital Signs: Last Vital Signs Pulse 60 07/31/23 10:09 BP 187/83 H 07/31/23 10:09 BMI result Body Mass Index 25.4 Const General: comfortable and no acute distress Nutritional Appearance: average body habitus Orientation/consciousness: patient oriented x3 Resp Effort & Inspection: normal respiratory effort, able to speak in complete sentences, no tracheal deviation and symmetric chest movement Auscultation: clear to auscultation bilaterally Cardio Rate: regular rate GI Inspection: Yes normal to inspection and No distended Palpation (GI): Soft to palpation, not firm, nontender and No hepatosplenomegaly present Auscultation: normal bowel sounds General: Yes no CVA tenderness Back/Spine/Pelvis Back: no CVA tenderness Skin General skin exam: elasticity normal, turgor normal and dry skin Neuro General: patient oriented x3 Psych Appearance: grossly normal Mental Status: mental status grossly normal Assessment & Plan Assessment & Plan (1) Postprandial epigastric pain: Code(s): R10.13 - Epigastric pain (2) Postprandial diarrhea: Code(s): K52.9 - Noninfective gastroenteritis and colitis, unspecified (3) GERD (gastroesophageal reflux disease): Code(s): K21.9 - Gastro-esophageal reflux disease without esophagitis Qualifiers: Esophagitis presence: esophagitis presence not specified Qualified Code(s): K21.9 - Gastro-esophageal reflux disease without esophagitis (4) Abdominal bloating: Code(s): R14.0 - Abdominal distension (gaseous) (5) Constipation: Code(s): K59.00 - Constipation, unspecified Qualifiers: Constipation type: slow transit constipation Qualified Code(s): K59.01 - Slow transit constipation Plan Will check thyroid study, vitamin B12, folate, vitamin-D level, rule out celiac, pancreatic insufficiency. Will check her lipase to rule out pancreatitis as well as will check her liver enzymes. Diarrhea for the past 4 months or so will check GI panel. Patient reports trouble swallowing, will order barium swallow. Will check for H pylori today in the office and treat empirically if positive. In the meantime patient will start taking pantoprazole in the morning and famotidine at bedtime. Discussed with patient avoiding dietary triggers and late night snacking. Staying upright for minimum 3 hours after meals discussed with patient. Patient will start taking Citrucel in the morning to help her bulk stools. Patient was encouraged to drink plenty fluids throughout the day. Patient will return in the office in 5-6 weeks, sooner on as needed basis. Both patient and her granddaughter are agreeable to plan of care and verbalizes understanding of instructions. They were given the opportunity to ask questions and all questions answered. Thank you for allowing me to participate in her care Orders: Orders TSH reflex Free T4 Today K59.00 - Constipation, unspecified Vitamin B12 and Folate Today R19.7 - Diarrhea, unspecified GI Panel Today R19.7 - Diarrhea, unspecified Vitamin D 25-OH (D2 and D3) Today E55.9 - Vitamin D deficiency, unspecified Liver Panel Today R74.01 - Elevation of levels of liver transaminase levels Pancreatic Elastase-1 Today R10.9 - Unspecified abdominal pain H Pylori Breath Test Today K21.9 - Gastro-esophageal reflux disease without esophagitis Transglutaminase Ab IgG Today R10.9 - Unspecified abdominal pain Transglutaminase IgA Today R10.9 - Unspecified abdominal pain Lipase Today R10.9 - Unspecified abdominal pain FL barium swallow Today R13.10 - Dysphagia, unspecified Medications: New famotidine 40 mg PO BEDTIME 30 tabs 3RF K21.9 - Gastro-esophageal reflux disease without esophagitis methylcellulose (laxative) (Citrucel) 500 mg PO DAILY 30 tabs 2RF K59.00 - Constipation, unspecified pantoprazole take one tablet half an hour before breakfast 40 mg PO DAILY 30 tabs 2RF K21.9 - Gastro-esophageal reflux disease without esophagitis Coding Level of Care Code New Pt Level 4 (08250) Diagnoses Postprandial epigastric pain R10.13 Postprandial diarrhea K52.9 Gastroesophageal reflux disease, unspecified whether esophagitis present K21.9 Esophagitis presence: esophagitis presence not specified Abdominal bloating R14.0 Slow transit constipation K59.01 Constipation type: slow transit constipation Time Spent (min) 45 Comment 30 minutes spent with patient and additional 10 minutes spent reviewing her records
== END 2023-07-31 11:00 | disposition home or self-care (01) ==
PROVIDERS: PCP Student in an Organized Health Care Education/Training Program; Visit Provider Nurse Practitioner Family
DX: R10.13 Epigastric pain (principal); K52.9 Noninfective gastroenteritis and colitis, unspecified; K21.9 Gastro-esophageal reflux disease without esophagitis; R14.0 Abdominal distension (gaseous); K59.01 Slow transit constipation
CPT/HCPCS: 99204

== ENCOUNTER 2023-07-31 09:52 | Outpatient (REF) | payer OTHER, SELFPAY ==
[2023-07-31 11:39] LABS: MANUAL DIFF FLAG NO
[2023-07-31 12:11] LABS: Basophils Absolute Auto 0.1 X10*3/uL (0.0-0.2); Basophils Percent Auto 0.6 % (0-2); Eosinophils Absolute Auto 0.9 X10*3/uL (0.0-0.4); Eosinophils Percent Auto 8.5 % (0-4); Hematocrit 36.9 % (37.0-47.0); Hemoglobin 11.5 g/dl (12.0-16.0); Imm Gran Abs Auto 0.03 X10*3/uL (0.00-0.03); Imm Gran Pct Auto 0.3 % (0.0-0.4); Lymphocytes Absolute Auto 3.1 X10*3/uL (1.2-4.9); Lymphocytes Percent Auto 28.3 % (20-40); Mean Corpuscular HGB Conc 31.2 g/dl (31.0-35.0); Mean Corpuscular Hemoglobin 28.7 pg (27.0-33.0); Mean Platelet Volume 11.2 fL (9.4-12.3); Monocytes Absolute Auto 1.1 X10*3/uL (0.1-1.2); Monocytes Percent Auto 10.1 % (2-11); Neutrophils Absolute Auto 5.7 x10*3/uL (2.0-8.3); Neutrophils Percent Auto 52.2 % (45-73); Platelet Count 299 X10*3/uL (160-400); Red Blood Count 4.01 X10*6/uL (4.20-5.50); Red Cell Distribution Width 13.2 % (11.0-16.0); White Blood Count 10.9 X10*3/uL (4.8-10.8)
[2023-07-31 12:53] LABS: Erythrocyte Sedimentation Rate 25 MM/HR (0-20)
[2023-07-31 12:57] LABS: Alanine Aminotransferase 28 U/L (0-31); Alkaline Phosphatase 119 U/L (39-117); Anion Gap 15 (12-20); Aspartate Amino Transferase 32 U/L (5-31); Bilirubin Direct 0.2 mg/dL (0.0-0.5); Bilirubin Total 0.5 mg/dL (0.0-1.0); Blood Urea Nitrogen 13 mg/dL (9-16); C Reactive Protein 0.54 mg/dL (< or = 0.50); Calcium 8.7 mg/dL (8.4-10.2); Carbon Dioxide 23 mmol/L (22-29); Chloride 109 mmol/L (96-108); Estimated Glomerular Filt Rate > 60; Glucose Random 176 mg/dL (60-115); Lipase 62 U/L (8-78); Sodium 143 mmol/L (135-145)
[2023-07-31 13:16] LABS: TSH reflex Free T4 0.27 uIU/mL (0.32-4.0)
[2023-07-31 13:21] LABS: Folate 8.1 ng/mL (> or = 4.0); Vitamin B12 1496 pg/mL (200-900)
[2023-07-31 14:00] LABS: Free T4 (Free Thyroxine) 1.04 ng/dL (0.71-1.85)
[2023-08-01 14:01] LABS: H Pylori Breath Test Negative (Negative)
[2023-08-02 08:08] LABS: Transglutaminase Ab IgG <1.0 U/mL; Transglutaminase IgA <1.0 U/mL
[2023-08-03 15:57] LABS: Vitamin D 25-OH, D2 <4 ng/mL; Vitamin D 25-OH, D3 39 ng/mL; Vitamin D 25-OH, Total 39 ng/mL (30-100)
== END 2023-07-31 09:53 | disposition home or self-care (01) ==
LOC: HO.LAB 09:52
PROVIDERS: Student in an Organized Health Care Education/Training Program; PCP Student in an Organized Health Care Education/Training Program; Visit Provider Nurse Practitioner Family
DX: K59.00 Constipation, unspecified (principal); R74.01 Elevation of levels of liver transaminase levels; R10.9 Unspecified abdominal pain; E55.9 Vitamin D deficiency, unspecified; M06.9 Rheumatoid arthritis, unspecified; R10.13 Epigastric pain; K52.9 Noninfective gastroenteritis and colitis, unspecified; K21.9 Gastro-esophageal reflux disease without esophagitis; K59.01 Slow transit constipation; R14.0 Abdominal distension (gaseous)
CPT/HCPCS: 36415; 80053; 80076; 82306; 82607; 82746; 83013; 83690; 84439; 84443; 85025; 85652; 86140; 86364; 99202

== ENCOUNTER 2023-08-07 11:38 | Outpatient (AMB) | payer OTHER, SELFPAY ==
[2023-08-07 11:40] VITALS: BP 132/64; BMI 26.0
--- NOTE | 2023-08-07 11:40 | A.OFFVIS_ITS ---
Vital Signs 08/07/23 11:40 Height 4 ft 11 in Weight 128 lb 11.999 oz BMI 26.0 BP 132/64 Blood Pressure Location Rt brachial Position Sitting Intake Visit Reasons: RA/lvm Intake Note: Patient last seen 05/30/23 presents today for follow up and test results. Reports lots of stomach pain, following with GI. Also reports pain and swelling bl hands worse on right; bl shoulders Employee Communications Manager Required: Yes Employee Communications Manager Language: Automotive Service Management Teacher Name: Melisa Andrade Accompanied by: Daughter Allergies No Known Allergies [No Known Allergies*] Allergy (Verified 08/07/23 11:41) Medication List - Last Reconciled 08/07/23 by Sarah Anderson MD alendronate 70 mg PO QWEEK aspirin 81 mg PO BEDTIME atorvastatin 40 mg PO BEDTIME blood sugar diagnostic As directed calcium carbonate-vitamin D3 600 mg-20 mcg (800 unit) tabs PO calcium polycarbophil (Fiber-Lax) mg PO carvedilol 3.125 mg PO BID celecoxib 200 mg PO DAILY cyanocobalamin (vitamin B-12) 1,000 mcg PO DAILY donepezil 10 mg PO DAILY famotidine 40 mg PO BEDTIME famotidine 20 mg PO DAILY fluoxetine 10 mg PO DAILY fluticasone propion-salmeterol 500-50 mcg/dose 1 ea PO BID fluticasone propionate 50 mcg/actuation 2 sprays intranasal DAILY furosemide 20 mg PO DAILY gabapentin 300 mg PO BEDTIME insulin glargine (Lantus Solostar U-100 Insulin) units subcut lancets As directed losartan 25 mg PO DAILY methimazole 10 mg PO BID methylcellulose (laxative) (Citrucel) 500 mg PO DAILY pantoprazole 40 mg PO DAILY pen needle, diabetic As directed pyridoxine (vitamin B6) 50 mg PO DAILY 30 days sitagliptin phosphate (Januvia) 50 mg PO DAILY umeclidinium 62.5 mcg/actuation (Incruse Ellipta) 1 inh inhalation DAILY HPI Comments Details: 77-year-old female with seropositive RA returns for follow-up. She states that she continues to have pain and swelling in her hands, wrists, shoulders. Initial history: This is a 76-year-old female with a past medical history of asthma, COPD, rheumatoid arthritis, diabetes mellitus, presents for evaluation of rheumatoid arthritis. Patient apparently has history of dementia and is not a good historian. She is here with her granddaughter. Patient mentions she was diagnosed with rheumatoid arthritis many years ago in [place] and she not specify whether she used to see a accounts adjustable clerk and whether she was on medications for RA. Patient states she takes Tylenol and sometimes prednisone for her joint pain. She has severe joint pain and swelling in her wrists, knuckles, fingers, knees, ankles. 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) Alcohol intake: never Patient Tobacco Use Status: Never used Tobacco e-Cigarette/Vaping Use: Never Used Second Hand Smoke Exposure: No service: No Current occupational status: unemployed Female Reproductive History Menstrual Total pregnancies: 5 Number of Living Children: 5 Review of Systems Musc Reports deformity, Reports arthralgias and Reports joint swelling Physical Exam Vital Signs: Last Vital Signs BP 132/64 08/07/23 11:40 BMI result Body Mass Index 26.0 Const General: cooperative Nutritional Appearance: overweight Limitations: no limitations HEENT Head: Yes normocephalic and Yes atraumatic Mouth: moist mucous membranes Resp Effort & Inspection: prolonged expiratory phase Cardio Rate: regular rate Rhythm: regular rhythm GI Inspection: No distended Palpation (GI): Soft to palpation and nontender Extrem Other: Diffuse synovitis affecting her wrists, MCPs, PIPs Multiple tender MTPs bilaterally Significantly limited range of motion of both shoulders Normal nailfold capillaroscopy Assessment & Plan Assessment & Plan (1) Rheumatoid arthritis: Comment: ++RF+++CCP dx many years ago. Unknown previous DMARDs SSZ started 08/08 stopped due to transaminitis Code(s): M06.9 - Rheumatoid arthritis, unspecified Category: Medical Qualifiers: Rheumatoid arthritis location: multiple sites Rheumatoid factor presence: with rheumatoid factor Qualified Code(s): M05.79 - Rheumatoid arthritis with rheumatoid factor of multiple sites without organ or systems involvement Plan: This is a 77-year-old female with seropositive RA who returns for follow-up. She has not on DMARDs. She continues to have active synovitis. Patient had transaminitis with sulfasalazine (might have been related to INH as well) Need to restart DMARDs. Discussed risks and benefits of hydroxychloroquine. Patient agreed to proceed. Start hydroxychloroquine 300 mg daily Patient has restrictive lung disease, there are no significant signs of RA ILD D on CT chest Follow-up in 3 months (2) Osteopenia: Code(s): M85.80 - Other specified disorders of bone density and structure, unspecified site Category: Medical Qualifiers: Osteopenia location: multiple sites Qualified Code(s): M85.89 - Other specified disorders of bone density and structure, multiple sites Plan: DEXA shows osteopenia but with a high FRAX score a, started on liquid alendronate by PCP a few months ago (3) Long-term use of hydroxychloroquine: Code(s): Z79.899 - Other assisted (current) drug therapy Category: Medical Plan: Possible prolongation of QTC interval as patient is also on donepezil. Will check baseline EKG today. Launch hydroxychloroquine and repeat EKG 2-3 weeks later Discussed risk of retinopathy associated with hydroxychloroquine. Advised patient to make an appointment with her coining press operator Plan I spent 23 minutes reviewing patient's chart, evaluating patient, ordering diagnostic workup, counseling patient and documenting in the chart Orders: Orders ECG 12 lead EKG Today Z79.899 - Other buttermilk drier operator (current) drug therapy ECG 12 lead EKG 2 Weeks Z79.899 - Other assisted (current) drug therapy Medications: New hydroxychloroquine 300 mg (1.5 x 200 mg) PO DAILY 45 tabs 2RF M05.79 - Rheumatoid arthritis with rheumatoid factor of multiple sites without organ or systems involvement Coding Level of Care Code Est Pt Level 4 (43252) Diagnoses Rheumatoid arthritis involving multiple sites with positive rheumatoid factor M05.79 Rheumatoid arthritis location: multiple sites Rheumatoid factor presence: with rheumatoid factor Osteopenia of multiple sites M85.89 Osteopenia location: multiple sites Long-term use of hydroxychloroquine Z79.899
== END 2023-08-07 12:08 | disposition home or self-care (01) ==
PROVIDERS: PCP Student in an Organized Health Care Education/Training Program; Visit Provider Student in an Organized Health Care Education/Training Program
DX: M05.79 Rheumatoid arthritis with rheumatoid factor of multiple sites without organ or systems involvement (principal); M85.89 Other specified disorders of bone density and structure, multiple sites; Z79.899 Other long term (current) drug therapy
CPT/HCPCS: 99214

== ENCOUNTER → 2023-08-07 11:38 | Outpatient (REF) | payer OTHER, SELFPAY ==
--- NOTE | 2023-08-07 12:32 | ECG_ITS ---
Test Reason : [facility] Blood Pressure : / mmHG Vent. Rate : 064 BPM Atrial Rate : 064 BPM P-R Int : 140 ms QRS Dur : 092 ms QT Int : 432 ms P-R-T Axes : 053 047 038 degrees QTc Int : 445 ms Normal sinus rhythm Minimal voltage criteria for LVH, may be normal variant ( Sokolow-Frias ) Nonspecific T wave abnormality Abnormal ECG When compared with ECG of 29-JUL-2021 12:06, Nonspecific T wave abnormality, improved in Anterior leads Nonspecific T wave abnormality, worse in Lateral leads Referred By: Sarah Anderson Electronically Signed By:CARLOS GOODE MD
== END ==
LOC: HO.CARD 11:38
PROVIDERS: PCP Student in an Organized Health Care Education/Training Program; Visit Provider Student in an Organized Health Care Education/Training Program
DX: M05.79 Rheumatoid arthritis with rheumatoid factor of multiple sites without organ or systems involvement (principal); M85.89 Other specified disorders of bone density and structure, multiple sites; Z79.899 Other long term (current) drug therapy
CPT/HCPCS: 93005; 99212

== ENCOUNTER → 2023-08-07 12:32 | Outpatient (BNV) | payer OTHER, SELFPAY | PROVIDERS: PCP Student in an Organized Health Care Education/Training Program; Visit Provider Internal Medicine Cardiovascular Disease | DX: R94.31 Abnormal electrocardiogram [ECG] [EKG] (principal) | CPT/HCPCS: 93010 ==

== ENCOUNTER 2023-08-16 12:38 | Outpatient (REF) | payer OTHER, SELFPAY ==
--- NOTE | ~2023-08-16 | XR_ITS ---
EXAMINATION: XR CHEST CLINICAL INFORMATION: Chronic cough COMPARISON: 07/29/2021 TECHNIQUE: 2 views of the chest were obtained. FINDINGS: Lungs are grossly clear. No pleural effusions. Heart size normal normal caliber pulmonary vessels. There is spondylitic change in the thoracic spine. There is an old compression deformity at L1. Sternal wires are present. XR/XR chest 2V IMPRESSION: No active disease.
== END 2023-08-16 12:39 | disposition home or self-care (01) ==
LOC: HO.HHCX 12:38
PROVIDERS: Visit Provider Student in an Organized Health Care Education/Training Program
DX: R05.9 Cough, unspecified (principal)
CPT/HCPCS: 71046

== ENCOUNTER 2023-08-20 09:35 | Outpatient (AMB) | payer OTHER, SELFPAY ==
[2023-08-20 09:39] VITALS: BP 120/64; PULSE 75; O2SAT 97; BMI 25.6
--- NOTE | 2023-08-20 09:39 | MHC.OFFVIS ---
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: No Allergies No Known Allergies [No Known Allergies*] Allergy (Verified 08/20/23 09:49) Medication List - Last Reconciled 08/20/23 by Glen Melendez MD alendronate 70 mg PO QWEEK aspirin 81 mg PO BEDTIME atorvastatin 40 mg PO BEDTIME blood sugar diagnostic As directed calcium carbonate-vitamin D3 600 mg-20 mcg (800 unit) tabs PO calcium polycarbophil (Fiber-Lax) mg PO carvedilol 3.125 mg PO BID celecoxib 200 mg PO DAILY cyanocobalamin (vitamin B-12) 1,000 mcg PO DAILY donepezil 10 mg PO DAILY famotidine 40 mg PO BEDTIME famotidine 20 mg PO DAILY fluoxetine 10 mg PO DAILY fluticasone propion-salmeterol 500-50 mcg/dose 1 ea PO BID fluticasone propionate 50 mcg/actuation 2 sprays intranasal DAILY furosemide 20 mg PO DAILY gabapentin 300 mg PO BEDTIME hydroxychloroquine 300 mg (1.5 x 200 mg) PO DAILY insulin glargine (Lantus Solostar U-100 Insulin) units subcut lancets As directed losartan 25 mg PO DAILY methimazole 10 mg PO BID methylcellulose (laxative) (Citrucel) 500 mg PO DAILY pantoprazole 40 mg PO DAILY pen needle, diabetic As directed pyridoxine (vitamin B6) 50 mg PO DAILY 30 days sitagliptin phosphate (Januvia) 50 mg PO DAILY umeclidinium 62.5 mcg/actuation (Incruse Ellipta) 1 inh inhalation DAILY Do you need a note to return to daycare/school/sports/work: No HPI HPI COPD: Details: Hue is 77 years old very pleasant, Nauruan-speaking female, who is here for her 6 months follow-up. In addition to her coronary artery disease and previous CABG surgery, which gives her restrictive pulmonary disorder, she also has advanced chronic obstructive pulmonary disease. She is regularly using Advair and Incruse Ellipta, along with Ventolin only as needed. She has remained very stable in the last 6 months without any acute exacerbation. She has completed treatment for latent tuberculosis. She is being treated for rheumatoid arthritis and is on hydrochloroquine. She has had mild eosinophilia all along, but denies any active allergy symptoms. [facility] Medical History Latent tuberculosis Restrictive lung disease CAD (coronary artery disease) Asthma Allergic rhinitis COPD exacerbation COPD (chronic obstructive pulmonary disease) Cough Hypertension Diabetes Surgical History History of hysterectomy Hx of CABG Family History Mother Acute arthritis Social History Household Members: Family Housing: Apartment Do you presently have visiting nurse or other home services: Yes ([facility] and [employer]) Alcohol intake: never Patient Tobacco Use Status: Never used Tobacco e-Cigarette/Vaping Use: Never Used Second Hand Smoke Exposure: No service: No Current occupational status: unemployed Review of Systems Const All systems reviewed & are unremarkable except as noted in HPI and below Eyes Reports no additional complaints ENT Reports nasal congestion (Mild off and) Card Denies chest pain and Reports dyspnea on exertion Resp Reports as per HPI and Reports dyspnea on exertion GI Reports no additional complaints Reports no additional complaints Musc Reports back pain Skin/Breast Reports system reviewed and no additional complaints, except as documented Neuro Reports no additional complaints Psych Reports anxiety Endo Reports no additional complaints Uche/Lymph Reports no additional complaints Physical Exam Vital Signs: Last Vital Signs Pulse 75 08/20/23 09:39 BP 120/64 08/20/23 09:39 Pulse Ox 97 08/20/23 09:39 Oxygen Delivery Method Room Air 08/20/23 09:39 BMI result Body Mass Index 25.6 Const General: comfortable (But short of breath during conversation), no acute distress, alert and awake Orientation/consciousness: patient oriented x3 HEENT Head: Yes normal to inspection General nose exam: No nasal polyps present and No nasal discharge present Face and sinus: Yes sinuses nontender Mouth: oropharynx normal Throat: Yes posterior oropharynx normal Eyes General: appearance normal, both eyes and all related structures Neck Neck: Yes normal visual inspection, Yes no lymphadenopathy, Yes trachea midline and Yes no JVD Thyroid: Thyroid normal Chest Chest palpation & inspection: abnormal inspection of the chest (Midline sternal scar from previous cardiac surgery), normal palpation of entire chest wall and no tenderness Resp Other: Percussion note is resonant, breath sounds are distant with prolonged, expiratory phase No active wheezes or crepitations are heard today. Cardio Palpation: normal PMI Rate: regular rate Rhythm: regular rhythm Heart sounds: no gallops and no murmurs GI Palpation (GI): Soft to palpation, nontender, No hepatosplenomegaly present and no masses Auscultation: normal bowel sounds Back/Spine/Pelvis Thoracic/Lumbar Spine: thoracic and lumbar spine normal to inspection Skin General skin exam: no rashes or lesions noted Neuro General: patient oriented x3 and no focal motor deficits Cranial nerves: Yes CN's II-XII intact bilaterally Extrem General: Yes normal to inspection, Yes no clubbing, cyanosis or edema and Yes no calf tenderness Psych Appearance: grossly normal Speech and movement: Normal speech and movement present Affect: Anxious affect present Results Reviewed Results Reviewed: SPIROMETRY tried but could not perform , as she starts having cough with any deep breaths. Assessment & Plan Assessment & Plan (1) COPD (chronic obstructive pulmonary disease): Comment: This patient has long-standing history of chronic obstructive pulmonary disease. She appears to be fairly stable at this time. Pulmonary function test in 2021 showed mostly restrictive pulmonary disorder. But the obstructive component cannot be ruled out. She is doing well on her current Regimen . Code(s): J44.9 - Chronic obstructive pulmonary disease, unspecified Category: Medical Plan: Advair 250-51 inhalation b.i.d. ( does adjusted ) Incruse Ellipta. 1 inhalation daily Ventolin HFA 2 puffs Q 6 hours p.r.n.. (2) Allergic rhinitis: Comment: This is chronic , seems well controlled . Code(s): J30.9 - Allergic rhinitis, unspecified Category: Medical Plan: Use fluticasone -50 2 spray each nostril daily (3) Restrictive lung disease: Comment: This patient has had previous chest surgery, has a long mid sternal scar. Pulmonary function test has shown moderately severe restrictive pulmonary disorder. This is mainly the reason for her shortness of breath on exertion. Code(s): J98.4 - Other disorders of lung Category: Medical Plan: as above (4) Cough: Comment: Cough is secondary to her chronic restrictive and obstructive pulmonary disease, and IS DOWN TO MINIMAL AND AT BASELINE AT PRESENT. Code(s): R05 - Cough Category: Medical Plan: Hue has chronic cough especially related to any exertion deep inspiration. This is secondary to combination of restrictive pulmonary disorder, COPD and hypersensitive airways. Plan Talked to her through her daughter and explained about this. Coding Level of Care Code Est Pt Level 3 (45861) Diagnoses COPD (chronic obstructive pulmonary disease) J44.9 Allergic rhinitis J30.9 Restrictive lung disease J98.4 Cough R05
== END 2023-08-20 10:12 | disposition home or self-care (01) ==
PROVIDERS: PCP Student in an Organized Health Care Education/Training Program; Visit Provider Internal Medicine
DX: J44.9 Chronic obstructive pulmonary disease, unspecified (principal); J30.9 Allergic rhinitis, unspecified; J98.4 Other disorders of lung; R05.9 Cough, unspecified
CPT/HCPCS: 99213

== ENCOUNTER → 2023-08-20 09:35 | Outpatient (BNVA) | payer OTHER, SELFPAY | PROVIDERS: PCP Student in an Organized Health Care Education/Training Program; Visit Provider Internal Medicine | DX: J44.9 Chronic obstructive pulmonary disease, unspecified (principal); J98.4 Other disorders of lung; J30.9 Allergic rhinitis, unspecified; R05.9 Cough, unspecified | CPT/HCPCS: 99212 ==

== ENCOUNTER 2023-10-04 08:25 | Outpatient (REF) | payer OTHER, SELFPAY ==
--- NOTE | ~2023-10-04 | FL_ITS ---
EXAMINATION: XR FLUOROSCOPY UPPER GI WITH AIR CLINICAL INFORMATION: Dysphagia COMPARISON: None TECHNIQUE: Fluoroscopic air contrast upper GI examination was performed utilizing standard techniques with thin and thick barium and effervescent granules. Numerous spot images were obtained. FINDINGS: Lateral cine images of the oropharynx and hypopharynx demonstrate normal swallow mechanism with normal epiglottic inversion and soft palate elevation. No tracheal penetration, glottic or subglottic aspiration identified. No nasopharyngeal reflux present. Hypopharyngeal structures appear normal without evidence of mass or diverticulum. There is mild posterior indentation of the cervical esophagus at level C5-C6 due to an anterior bridging osteophyte. There is ballooning of the hypopharynx with mild cricopharyngeal achalasia present. Median sternotomy wires are present. Dual and single contrast images of the esophagus demonstrate mild patulous caliber, normal contour and mucosal pattern. No evidence of stricture, mass, or ulcerations identified. There is to and fro motion of the barium column with nonpropulsive tertiary contractions noted throughout the esophagus. A very small type I hiatal hernia is present. No significant gastroesophageal reflux was seen during the course of the examination and on reflux views. GE junction is grossly otherwise normal. Dual contrast and single contrast images of the stomach demonstrated a normal contour. There are multiple focal areas of contrast pooling in the body and fundus of stomach that may represent small superficial aphthous ulcers. No masses are present. Contrast freely passed into the gastric antrum and duodenal bulb without delay. Single and air-contrast images of the duodenal bulb demonstrate no abnormality. The duodenal sweep has a normal appearance, course, and mucosal fold appearance. There is a small to moderate sized diverticulum noted in the second portion of the duodenum. The imaged proximal jejunum has a normal fold pattern and caliber. FLUOROSCOPY TIME: 4 minutes 51 seconds Number of Spot Images: 12 Number of Cine: 15 DOSE AREA PRODUCT: 2462 uGy-m2 (microgray-meter squared) FL/FL barium swallow IMPRESSION: 1. There is mild posterior indentation of the cervical esophagus at the level C5-C6 due to an anterior bridging osteophyte. This is likely clinically insignificant. 2. There is ballooning of the hypopharynx with associated mild cricopharyngeal achalasia. 3. Mildly patulous esophagus with associated dysmotility. No mucosal abnormalities. 4. Very small type I hiatal hernia. 5. Multiple focal areas of contrast pooling in the body and fundus the stomach that may present small superficial aphthous ulcers. Recommend correlation with EGD. 6. Small to moderate-sized diverticulum in the second portion the duodenum. This procedure was performed by Arjun Pérez PA-C, and supervised by Dr. Galindo
== END 2023-10-04 08:26 | disposition home or self-care (01) ==
LOC: HO.XRAY 08:25
PROVIDERS: Visit Provider Nurse Practitioner Family
DX: R13.10 Dysphagia, unspecified (principal)
CPT/HCPCS: 74220

== ENCOUNTER → 2023-10-04 08:27 | Outpatient (BNV) | payer OTHER, SELFPAY | PROVIDERS: Visit Provider Physician Assistant Surgical | DX: R13.10 Dysphagia, unspecified (principal) | CPT/HCPCS: 74246 ==

== ENCOUNTER 2023-10-29 11:07 | Outpatient (AMB) | payer OTHER, SELFPAY ==
--- NOTE | 2023-10-29 11:10 | MHC.OFFVIS ---
Vital Signs 10/29/23 11:12 Height 4 ft 11 in Weight 125 lb BMI 25.2 BP 134/61 Blood Pressure Location Lt brachial Position Sitting Pulse 70 Intake Visit Reasons: 5 week follow up Intake Note: Patient 5 weeks follow up for abdominal bloating Patient cc: Abdominal pain/bloating, loose stool, difficulty swallowing, and poor appetite. 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 Will check her lipase to rule out pancreatitis as well as will check her liver enzymes. Diarrhea for the past 4 months or so will check GI panel. Patient reports trouble swallowing, will order barium swallow. Will check for H pylori today in the office and treat empirically if positive. In the meantime patient will start taking pantoprazole in the morning and famotidine at bedtime. Discussed with patient avoiding dietary triggers and late night snacking. Staying upright for minimum 3 hours after meals discussed with patient. Patient will start taking Citrucel in the morning to help her bulk stools. Patient was encouraged to drink plenty fluids throughout the day. Patient will return in the office in 5-6 weeks, sooner on as needed basis. Both patient and her granddaughter are agreeable to plan of care and verbalizes understanding of instructions. They were given the opportunity to ask questions and all questions answered. ? Thank you for allowing me to participate in her care Orders Orders TSH reflex Free T4 Today K59.00 Vitamin B12 and Folate Today R19.7 GI Panel Today R19.7 Vitamin D 25-OH (D2 and D3) Today E55.9 Liver Panel Today R74.01 Pancreatic Elastase-1 Today R10.9 H Pylori Breath Test Today K21.9 Transglutaminase Ab IgG Today R10.9 Transglutaminase IgA Today R10.9 Lipase Today R10.9 FL barium swallow Today R13.10 Medications New famotidine 40 mg PO BEDTIME 30 tabs 3RF K21.9 methylcellulose (laxative) (Citrucel) 500 mg PO DAILY 30 tabs 2RF K59.00 pantoprazole take one tablet half an hour before breakfast 40 mg PO DAILY 30 tabs 2RF K21.9 TODAY'S VISIT: Patient is here today for follow-up. Patient is accompanied by her granddaughter. Patient continues to have similar symptoms. She continues to have epigastric pain and difficulty swallowing what has been going on for quite some time. No episodes of choking reported. [facility] [place] used during the whole visit. All lab work done and no adverse findings except for low TSH. Patient's TSH level low, normal free T4. Patient denies any diarrhea or constipation. Patient reports occasional epigastric pain and abdominal bloating postprandially. Patient has no heat and is unable to chew well. Mostly patient eats soft food or shakes. Patient's granddaughter reports that she is not taking pantoprazole or famotidine. Patient states that the pharmacy has never gave it to them. Patient brought her medication list from pharmacy and neither pantoprazole or famotidine was there. No change in patient's diet. No change in her appetite. 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) Alcohol intake: never Patient Tobacco Use Status: Never used Tobacco e-Cigarette/Vaping Use: Never Used Second Hand Smoke Exposure: No service: No Current occupational status: unemployed Review of Systems Const Denies weight gain and Denies weight loss ENT Reports no additional complaints, Reports dysphagia and Denies odynophagia Card Reports no additional complaints Resp Reports no additional complaints GI Reports abdominal pain (Epigastric), Denies belching, Denies melena, Reports bloating, Reports constipation, Reports dysphagia, Denies excessive flatus, Reports dyspepsia, Reports heartburn, Denies diarrhea, Reports loose stools, Denies nausea, Denies odynophagia and Denies vomiting Reports no additional complaints Musc Reports no additional complaints Neuro Reports no additional complaints Psych Reports no additional complaints Endo Reports no additional complaints Physical Exam Vital Signs: Last Vital Signs Pulse 70 10/29/23 11:12 BP 134/61 10/29/23 11:12 BMI result Body Mass Index 25.2 Const General: comfortable and no acute distress Nutritional Appearance: average body habitus Orientation/consciousness: patient oriented x3 Resp Effort & Inspection: normal respiratory effort, able to speak in complete sentences, no tracheal deviation and symmetric chest movement Auscultation: clear to auscultation bilaterally Cardio Rate: regular rate GI Inspection: Yes normal to inspection and No distended Palpation (GI): Soft to palpation, not firm, nontender and No hepatosplenomegaly present Auscultation: normal bowel sounds General: Yes no CVA tenderness Back/Spine/Pelvis Back: no CVA tenderness Skin General skin exam: elasticity normal, turgor normal and dry skin Neuro General: patient oriented x3 Psych Appearance: grossly normal Mental Status: mental status grossly normal Results Reviewed Results Reviewed: Laboratory Tests 07/31/23 07/31/23 10:58 11:37 Hgb 11.5 L Hct 36.9 L Direct Bilirubin 0.2 AST 32 H ALT 28 Alkaline Phosphatase 119 H C-Reactive Protein 0.54 H Albumin 4.0 Lipase 62 Vitamin B12 1496 H 25-OH Vitamin D Total 39 Folate 8.1 TSH 0.27 L Free T4 1.04 Tiss Transglutamin IgG <1.0 Tiss Transglutamin IgA <1.0 H. pylori Breath Test Negative Assessment & Plan Assessment & Plan (1) Postprandial epigastric pain: Code(s): R10.13 - Epigastric pain (2) Postprandial diarrhea: Code(s): K52.9 - Noninfective gastroenteritis and colitis, unspecified (3) GERD (gastroesophageal reflux disease): Code(s): K21.9 - Gastro-esophageal reflux disease without esophagitis Qualifiers: Esophagitis presence: esophagitis presence not specified Qualified Code(s): K21.9 - Gastro-esophageal reflux disease without esophagitis (4) Abdominal bloating: Code(s): R14.0 - Abdominal distension (gaseous) (5) Constipation: Code(s): K59.00 - Constipation, unspecified Qualifiers: Constipation type: slow transit constipation Qualified Code(s): K59.01 - Slow transit constipation Plan Barium swallow report not read yet. Pending results will be sending patient for upper endoscopy. Patient will start taking pantoprazole in the morning and famotidine at bedtime. Patient's granddaughter to inquire with pharmacy and if there is a trouble with refilling due to insurance she is to call the office. Follow-up in 2 months, sooner on as needed basis. Patient is agreeable to this plan and verbalizes understanding of instructions. She was given the opportunity to ask questions and all questions answered. Thank you for allowing me to participate in her care Medications: Refilled famotidine 40 mg PO BEDTIME 30 tabs 3RF K21.9 - Gastro-esophageal reflux disease without esophagitis pantoprazole take one tablet half an hour before breakfast 40 mg PO DAILY 30 tabs 2RF K21.9 - Gastro-esophageal reflux disease without esophagitis Coding Level of Care Code Est Pt Level 4 (29950) Diagnoses Postprandial epigastric pain R10.13 Postprandial diarrhea K52.9 Gastroesophageal reflux disease, unspecified whether esophagitis present K21.9 Esophagitis presence: esophagitis presence not specified Abdominal bloating R14.0 Slow transit constipation K59.01 Constipation type: slow transit constipation Time Spent (min) 45 Comment 20 minutes spent with patient and additional 15 minutes spent reviewing her records
[2023-10-29 11:12] VITALS: BP 134/61; PULSE 70; BMI 25.2
== END 2023-10-29 12:05 | disposition home or self-care (01) ==
PROVIDERS: PCP Student in an Organized Health Care Education/Training Program; Visit Provider Nurse Practitioner Family
DX: R10.13 Epigastric pain (principal); K52.9 Noninfective gastroenteritis and colitis, unspecified; K21.9 Gastro-esophageal reflux disease without esophagitis; R14.0 Abdominal distension (gaseous); K59.01 Slow transit constipation
CPT/HCPCS: 99214

== ENCOUNTER → 2023-10-29 11:07 | Outpatient (BNVA) | payer OTHER, SELFPAY | PROVIDERS: PCP Student in an Organized Health Care Education/Training Program; Visit Provider Nurse Practitioner Family | DX: K59.01 Slow transit constipation (principal); K52.9 Noninfective gastroenteritis and colitis, unspecified; K21.9 Gastro-esophageal reflux disease without esophagitis; R10.13 Epigastric pain; R14.0 Abdominal distension (gaseous) | CPT/HCPCS: 99212 ==

== ENCOUNTER 2023-10-31 10:14 | Outpatient (AMB) | payer OTHER, SELFPAY ==
[2023-10-31 10:35] VITALS: BP 132/78; PULSE 72; O2SAT 99; BMI 25.7
--- NOTE | 2023-10-31 10:35 | MHC.OFFVIS ---
Vital Signs 10/31/23 10:35 Height 4 ft 11 in Weight 127 lb 3.307 oz BMI 25.7 BP 132/78 Blood Pressure Location Rt brachial Position Sitting Pulse 72 Pulse Source Pulse Oximeter Pulse Oximetry (%) 99 Oxygen Delivery Method Room Air Intake Visit Reasons: RA/MELANIA Process Coach Name: Alisha Pacheco Accompanied by: Grand Child Allergies No Known Allergies [No Known Allergies*] Allergy (Verified 10/31/23 10:39) Medication List - Last Reconciled 10/31/23 by Sarah Anderson MD albuterol sulfate 90 mcg/actuation (Ventolin HFA) 2 puffs inhalation Q4-6H PRN 30 days alendronate 70 mg PO QWEEK aspirin 81 mg PO BEDTIME atorvastatin 40 mg PO BEDTIME blood sugar diagnostic As directed calcium carbonate-vitamin D3 600 mg-20 mcg (800 unit) tabs PO calcium polycarbophil (Fiber-Lax) mg PO carvedilol 3.125 mg PO BID celecoxib 200 mg PO DAILY cyanocobalamin (vitamin B-12) 1,000 mcg PO DAILY donepezil 10 mg PO DAILY famotidine 40 mg PO BEDTIME fluoxetine 10 mg PO DAILY fluticasone propion-salmeterol 250-50 mcg/dose (Advair Diskus) 1 inh inhalation BID 30 days fluticasone propion-salmeterol 500-50 mcg/dose 1 ea PO BID fluticasone propionate 50 mcg/actuation 2 sprays intranasal DAILY furosemide 20 mg PO DAILY gabapentin 300 mg PO BEDTIME insulin glargine (Lantus Solostar U-100 Insulin) units subcut lancets As directed lidocaine 5% 1 patch topical DAILY losartan 25 mg PO DAILY methimazole 10 mg PO BID methylcellulose (laxative) (Citrucel) 500 mg PO DAILY pantoprazole 40 mg PO DAILY pen needle, diabetic As directed pyridoxine (vitamin B6) 50 mg PO DAILY 30 days sitagliptin phosphate (Januvia) 50 mg PO DAILY umeclidinium 62.5 mcg/actuation (Incruse Ellipta) 1 inh inhalation DAILY HPI Comments Details: 77-year-old female with seropositive RA returns for follow-up. She states that she continues to have pain and swelling in her hands, wrists, shoulders. She has been taking hydroxychloroquine 200 mg daily for the last 2-3 months without improvement. She has noted some palpitations, but she was reassured by her director of perioperative services Initial history: This is a 76-year-old female with a past medical history of asthma, COPD, rheumatoid arthritis, diabetes mellitus, presents for evaluation of rheumatoid arthritis. Patient apparently has history of dementia and is not a good historian. She is here with her granddaughter. Patient mentions she was diagnosed with rheumatoid arthritis many years ago in [place] and she not specify whether she used to see a waste management engineer and whether she was on medications for RA. Patient states she takes Tylenol and sometimes prednisone for her joint pain. She has severe joint pain and swelling in her wrists, knuckles, fingers, knees, ankles. 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) Alcohol intake: never Patient Tobacco Use Status: Never used Tobacco e-Cigarette/Vaping Use: Never Used Second Hand Smoke Exposure: No service: No Current occupational status: unemployed Female Reproductive History Menstrual Total pregnancies: 5 Number of Living Children: 5 Review of Systems Musc Reports deformity, Reports arthralgias and Reports joint swelling Physical Exam Vital Signs: Last Vital Signs Pulse 72 10/31/23 10:35 BP 132/78 10/31/23 10:35 Pulse Ox 99 10/31/23 10:35 Oxygen Delivery Method Room Air 10/31/23 10:35 BMI result Body Mass Index 25.7 Const General: cooperative Nutritional Appearance: overweight Limitations: no limitations HEENT Head: Yes normocephalic and Yes atraumatic Mouth: moist mucous membranes Resp Effort & Inspection: prolonged expiratory phase Cardio Rate: regular rate Rhythm: regular rhythm GI Inspection: No distended Palpation (GI): Soft to palpation and nontender Extrem Other: Diffuse synovitis affecting her wrists, MCPs, PIPs Multiple tender MTPs bilaterally Significantly limited range of motion of both shoulders Normal nailfold capillaroscopy Assessment & Plan Assessment & Plan (1) Rheumatoid arthritis: Comment: ++RF+++CCP dx many years ago. Unknown previous DMARDs SSZ started 08/08 stopped due to transaminitis HCQ 07/2023 DC 10/2023 ineffective Code(s): M06.9 - Rheumatoid arthritis, unspecified Category: Medical Qualifiers: Rheumatoid arthritis location: multiple sites Rheumatoid factor presence: with rheumatoid factor Qualified Code(s): M05.79 - Rheumatoid arthritis with rheumatoid factor of multiple sites without organ or systems involvement Plan: This is a 77-year-old female with seropositive RA who returns for follow-up. She has been taking hydroxychloroquine 300 mg regularly for the last 3 months without improvement. Continues to have active synovitis. Will need to switch DMARDs. At this time patient can not take methotrexate due to intermittent transaminitis as well as her history of significant COPD. Hydroxychloroquine was ineffective. Sulfasalazine was associated with transaminitis Discussed risks and benefits of TNF inhibitors. I provided patient and her granddaughter with a gout of patient information about Enbrel. They will let me know whether they want to proceed. If they agree I will start prior authorization for Enbrel Patient has restrictive lung disease, there are no significant signs of RA ILD on CT chest Labs before next visit in 3 months (2) Osteopenia: Code(s): M85.80 - Other specified disorders of bone density and structure, unspecified site Category: Medical Qualifiers: Osteopenia location: multiple sites Qualified Code(s): M85.89 - Other specified disorders of bone density and structure, multiple sites Plan: DEXA shows osteopenia but with a high FRAX score a, started on liquid alendronate by PCP in 2022 (3) Latent tuberculosis: Code(s): Z22.7 - Latent tuberculosis Category: Medical Plan: Was evaluated by Infectious Disease and received INH treatment. Is cleared by Infectious Disease to start biologic Plan I spent 23 minutes reviewing patient's chart, evaluating patient, ordering diagnostic workup, counseling patient and documenting in the chart Orders: Orders Comprehensive Met. Panel 3 Months M05.79 - Rheumatoid arthritis with rheumatoid factor of multiple sites without organ or systems involvement, Z22.7 - Latent tuberculosis C Reactive Protein 3 Months M05. - Rheumatoid arthritis with rheumatoid factor of multiple sites without organ or systems involvement, Z22.7 - Latent tuberculosis Complete Blood Count Auto Diff 3 Months M05. - Rheumatoid arthritis with rheumatoid factor of multiple sites without organ or systems involvement, Z22.7 - Latent tuberculosis Erythrocyte Sedimentation Rate 3 Months M0. - Rheumatoid arthritis with rheumatoid factor of multiple sites without organ or systems involvement, Z22.7 - Latent tuberculosis Coding Level of Care Code Est Pt Level 4 (89959) Diagnoses Rheumatoid arthritis involving multiple sites with positive rheumatoid factor M0. Rheumatoid arthritis location: multiple sites Rheumatoid factor presence: with rheumatoid factor Osteopenia of multiple sites M85.89 Osteopenia location: multiple sites Latent tuberculosis Z22.7
== END 2023-10-31 10:58 | disposition home or self-care (01) ==
PROVIDERS: PCP Student in an Organized Health Care Education/Training Program; Visit Provider Student in an Organized Health Care Education/Training Program
DX: M05.79 Rheumatoid arthritis with rheumatoid factor of multiple sites without organ or systems involvement (principal); M85.89 Other specified disorders of bone density and structure, multiple sites; Z22.7 Latent tuberculosis
CPT/HCPCS: 99214

== ENCOUNTER → 2023-10-31 10:14 | Outpatient (BNVA) | payer OTHER, SELFPAY | PROVIDERS: PCP Student in an Organized Health Care Education/Training Program; Visit Provider Student in an Organized Health Care Education/Training Program | DX: M05.79 Rheumatoid arthritis with rheumatoid factor of multiple sites without organ or systems involvement (principal); M85.89 Other specified disorders of bone density and structure, multiple sites; Z22.7 Latent tuberculosis | CPT/HCPCS: 99212 ==

== ENCOUNTER 2023-12-12 09:33 | Outpatient (REF) | payer OTHER, SELFPAY ==
--- NOTE | ~2023-12-12 | US_ITS ---
EXAMINATION: US ABDOMEN COMPLETE CLINICAL INFORMATION: Epigastric pain. Elevated alkaline phosphatase and LFTs. COMPARISON: None available. TECHNIQUE: Real-time imaging of the abdominal viscera. FINDINGS: PANCREAS: The pancreas appears unremarkable, without masses or ductal dilatation, with the exception of the tail which is obscured by bowel gas. ABDOMINAL AORTA: The proximal, mid, and distal segments are normal in caliber. INFERIOR VENA CAVA: Visualized portions are normal. LIVER: Normal. The liver is normal in size. The liver contour is normal. Parenchymal echogenicity is normal. No focal hepatic lesion. There is no intrahepatic biliary duct dilatation seen. GALLBLADDER: The gallbladder is physiologically distended. Small layering mobile gallstones are present. No evidence of gallbladder wall thickening or pericholecystic fluid. COMMON BILE DUCT: Normal in caliber measuring 0.27 cm in diameter. RIGHT KIDNEY: Normal. No hydronephrosis. No renal calculi or focal parenchymal lesions. The kidney measures 9.2 cm in maximum dimension. LEFT KIDNEY: Normal. No hydronephrosis. No renal calculi or focal parenchymal lesions. The kidney measures 8.5 cm in maximum dimension. SPLEEN: Normal. The spleen measures 7.2 cm in maximum dimension. FREE FLUID: None. US/US abdomen complete IMPRESSION: Cholelithiasis without evidence of cholecystitis. Electronically signed by: Twan Burleson MD 01/31/2024 12:43 PM EST
== END 2023-12-12 09:34 | disposition home or self-care (01) ==
LOC: HO.US 09:33
PROVIDERS: PCP Student in an Organized Health Care Education/Training Program; Visit Provider Student in an Organized Health Care Education/Training Program
DX: R10.13 Epigastric pain (principal)
CPT/HCPCS: 76700

== ENCOUNTER 2024-02-05 10:31 | Outpatient (REF) | payer OTHER, SELFPAY ==
[2024-02-05 13:14] LABS: MANUAL DIFF FLAG NO
[2024-02-05 13:50] LABS: Basophils Absolute Auto 0.1 X10*3/uL (0.0-0.2); Basophils Percent Auto 0.4 % (0-2); Eosinophils Absolute Auto 0.8 X10*3/uL (0.0-0.4); Eosinophils Percent Auto 6.9 % (0-4); Hematocrit 36.6 % (37.0-47.0); Hemoglobin 11.6 g/dl (12.0-16.0); Imm Gran Abs Auto 0.05 X10*3/uL (0.00-0.03); Imm Gran Pct Auto 0.4 % (0.0-0.4); Mean Corpuscular HGB Conc 31.7 g/dl (31.0-35.0); Mean Corpuscular Hemoglobin 28.5 pg (27.0-33.0); Mean Corpuscular Volume 89.9 fL (80.0-98.0); Mean Platelet Volume 11.4 fL (9.4-12.3); Monocytes Absolute Auto 1.1 X10*3/uL (0.1-1.2); Monocytes Percent Auto 9.2 % (2-11); Neutrophils Absolute Auto 6.6 x10*3/uL (2.0-8.3); Neutrophils Percent Auto 57.1 % (45-73); Platelet Count 296 X10*3/uL (160-400); Red Blood Count 4.07 X10*6/uL (4.20-5.50); Red Cell Distribution Width 12.9 % (11.0-16.0); White Blood Count 11.6 X10*3/uL (4.8-10.8)
[2024-02-05 14:10] LABS: Estimated Average Glucose 174 mg/dL; Hemoglobin A1C 179.7087 umol/L; Hemoglobin A1c % 7.7 % (<6.0); Total Hemoglobin (HGBA1C) 2957.4058 umol/L
[2024-02-05 14:18] LABS: Creatinine Urine 280.14 mg/dL; Microalbum/Creatinine Ratio Ur 9.9 ug/mg cr (<30)
[2024-02-05 14:42] LABS: Erythrocyte Sedimentation Rate 36 MM/HR (0-20)
[2024-02-05 14:48] LABS: Vitamin B12 1580 pg/mL (200-900)
[2024-02-05 14:50] LABS: Alanine Aminotransferase 69 U/L (0-31); Alkaline Phosphatase 115 U/L (39-117); Anion Gap 12 (12-20); Aspartate Amino Transferase 62 U/L (5-31); Bilirubin Total 0.4 mg/dL (0.0-1.0); Blood Urea Nitrogen 16 mg/dL (9-16); Calcium 9.5 mg/dL (8.4-10.2); Carbon Dioxide 27 mmol/L (22-29); Chloride 106 mmol/L (96-108); Cholesterol 164 mg/dL (<200); Estimated Glomerular Filt Rate 54; Ferritin 78 ng/mL (10-250); Glucose Random 224 mg/dL (60-115); HDL Cholesterol 70 mg/dL (>40); Iron 43 mcg/dL (30-160); LDL Cholesterol Calculated 82 mg/dL (<100); Percent Iron Saturation 17 % (15-50); Potassium 4.1 mmol/L (3.3-5.1); Sodium 141 mmol/L (135-145); Total Iron Binding Capacity 249 mcg/dL (228-428); Total Protein 7.9 g/dL (6.5-8.0); Triglycerides 60 mg/dL (<150); Unsaturated Iron Binding 206 ug/dL
[2024-02-05 15:20] LABS: Gamma Glutamyl Transpeptidase 89 U/L (7-33)
[2024-02-10 17:13] LABS: Strongyloides Antibody IgG NEGATIVE
== END 2024-02-05 10:32 | disposition home or self-care (01) ==
LOC: HO.HHCL 10:31
PROVIDERS: Student in an Organized Health Care Education/Training Program; Visit Provider Student in an Organized Health Care Education/Training Program
DX: E11.69 Type 2 diabetes mellitus with other specified complication (principal); Z79.4 Long term (current) use of insulin; R74.8 Abnormal levels of other serum enzymes; D72.10 Eosinophilia, unspecified; M05.79 Rheumatoid arthritis with rheumatoid factor of multiple sites without organ or systems involvement; Z22.7 Latent tuberculosis
CPT/HCPCS: 36415; 80053; 80061; 82043; 82570; 82607; 82728; 82746; 82977; 83036; 83540; 85025; 85027; 85652; 86140; 86682

== ENCOUNTER 2024-02-06 09:38 | Outpatient (AMB) | payer OTHER, SELFPAY ==
--- NOTE | 2024-02-06 09:40 | MHC.OFFVIS ---
Vital Signs 02/06/24 09:48 Height 4 ft 11 in Weight 130 lb 1.164 oz BMI 26.3 BP 132/70 Blood Pressure Location Rt brachial Position Sitting Respiration 16 Pulse 64 Pulse Source Pulse Oximeter Pulse Oximetry (%) 97 Oxygen Delivery Method Room Air Intake Visit Reasons: RA/CM APT Intake Note: Patient presents for RA. Patient c/o bilateral shoulders and bilateral knee pain. Prison Guard Supervisor Required: Yes Prison Guard Supervisor Language: Customs Import Specialist Services: Prison Guard Supervisor Present Prison Guard Supervisor Name: Bryan [phone] Information Interpreted: non-clinical & clinical Allergies No Known Allergies [No Known Allergies*] Allergy (Verified 02/06/24 09:46) Medication List - Last Reconciled 02/06/24 by Sarah Anderson MD albuterol sulfate 90 mcg/actuation (Ventolin HFA) 2 puffs inhalation Q4-6H PRN 30 days alendronate 70 mg PO QWEEK aspirin 81 mg PO BEDTIME atorvastatin 40 mg PO BEDTIME blood sugar diagnostic As directed calcium carbonate-vitamin D3 600 mg-20 mcg (800 unit) tabs PO calcium polycarbophil (Fiber-Lax) mg PO carvedilol 3.125 mg PO BID celecoxib 200 mg PO DAILY cyanocobalamin (vitamin B-12) 1,000 mcg PO DAILY donepezil 10 mg PO DAILY famotidine 40 mg PO BEDTIME fluoxetine 10 mg PO DAILY fluticasone propion-salmeterol 250-50 mcg/dose (Advair Diskus) 1 inh inhalation BID 30 days fluticasone propion-salmeterol 500-50 mcg/dose 1 ea PO BID fluticasone propionate 50 mcg/actuation 2 sprays intranasal DAILY furosemide 20 mg PO DAILY gabapentin 300 mg PO BEDTIME insulin glargine (Lantus Solostar U-100 Insulin) units subcut lancets As directed lidocaine 5% 1 patch topical DAILY losartan 25 mg PO DAILY methimazole 10 mg PO BID methylcellulose (laxative) (Citrucel) 500 mg PO DAILY pantoprazole 40 mg PO DAILY pen needle, diabetic As directed pyridoxine (vitamin B6) 50 mg PO DAILY 30 days sitagliptin phosphate (Januvia) 50 mg PO DAILY umeclidinium 62.5 mcg/actuation (Incruse Ellipta) 1 inh inhalation DAILY HPI Comments Details: 78-year-old female with seropositive RA returns for follow-up. She states that she continues to have pain and swelling in her hands, wrists, shoulders. She presents with her granddaughter. Granddaughter Erin states that patient has some form of dementia. Granddaughter and mother thought about the risks and benefits of Enbrel and they wish to proceed. Initial history: This is a 76-year-old female with a past medical history of asthma, COPD, rheumatoid arthritis, diabetes mellitus, presents for evaluation of rheumatoid arthritis. Patient apparently has history of dementia and is not a good historian. She is here with her granddaughter. Patient mentions she was diagnosed with rheumatoid arthritis many years ago in [place] and she not specify whether she used to see a record tester and whether she was on medications for RA. Patient states she takes Tylenol and sometimes prednisone for her joint pain. She has severe joint pain and swelling in her wrists, knuckles, fingers, knees, ankles. 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) Alcohol intake: never Patient Tobacco Use Status: Never used Tobacco e-Cigarette/Vaping Use: Never Used Second Hand Smoke Exposure: No service: No Current occupational status: unemployed Female Reproductive History Menstrual Total pregnancies: 5 Number of Living Children: 5 Review of Systems Musc Reports deformity, Reports arthralgias, Reports joint swelling and Reports limited range of motion Physical Exam Vital Signs: Last Vital Signs Pulse 64 02/06/24 09:48 Resp 16 02/06/24 09:48 BP 132/70 02/06/24 09:48 Pulse Ox 97 02/06/24 09:48 Oxygen Delivery Method Room Air 02/06/24 09:48 BMI result Body Mass Index 26.3 Const General: cooperative Nutritional Appearance: overweight Limitations: no limitations HEENT Head: Yes normocephalic and Yes atraumatic Mouth: moist mucous membranes Resp Effort & Inspection: prolonged expiratory phase Cardio Rate: regular rate Rhythm: regular rhythm GI Inspection: No distended Palpation (GI): Soft to palpation and nontender Extrem Other: Diffuse synovitis affecting her wrists, MCPs, PIPs Multiple tender MTPs bilaterally Significantly limited range of motion of both shoulders Normal nailfold capillaroscopy Assessment & Plan Assessment & Plan (1) Rheumatoid arthritis: Comment: ++RF+++CCP dx many years ago. Unknown previous DMARDs SSZ started 08/08 stopped due to transaminitis HCQ 07/2023 DC 10/2023 ineffective Code(s): M06.9 - Rheumatoid arthritis, unspecified Category: Medical Qualifiers: Rheumatoid arthritis location: multiple sites Rheumatoid factor presence: with rheumatoid factor Qualified Code(s): M05.79 - Rheumatoid arthritis with rheumatoid factor of multiple sites without organ or systems involvement Plan: This is a 78-year-old female with seropositive RA who returns for follow-up. Not on DMARDs. Continues to have active synovitis At this time patient can not take methotrexate due to intermittent transaminitis as well as her history of significant COPD. Hydroxychloroquine was ineffective. Sulfasalazine was associated with transaminitis Last visit Discussed risks and benefits of TNF inhibitors. I provided patient and her granddaughter with a printout of patient information about Enbrel. Per granddaughter, patient has some dementia. Per granddaughter, she discussed it with patient's daughter and they wish to proceed. Will start prior authorization for Enbrel Patient has restrictive lung disease, there are no significant signs of RA ILD on CT chest Labs before next visit in 3 months (2) Osteopenia: Code(s): M85.80 - Other specified disorders of bone density and structure, unspecified site Category: Medical Qualifiers: Osteopenia location: multiple sites Qualified Code(s): M85.89 - Other specified disorders of bone density and structure, multiple sites Plan: DEXA shows osteopenia but with a high FRAX score a, started on liquid alendronate by PCP in 2022. Repeat DEXA in 2024 (3) Latent tuberculosis: Code(s): Z22.7 - Latent tuberculosis Category: Medical Plan: Was evaluated by Infectious Disease and received INH treatment. 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 Patient fully aware. Advised patient to seek medical care [facility] if patient has an infection and advised patient to stop the medication until the infection is resolved. Plan I spent 23 minutes reviewing patient's chart, evaluating patient, ordering diagnostic workup, counseling patient and documenting in the chart Orders: Orders Comprehensive Met. Panel 3 Months M05.79 - Rheumatoid arthritis with rheumatoid factor of multiple sites without organ or systems involvement Erythrocyte Sedimentation Rate 3 Months M05.79 - Rheumatoid arthritis with rheumatoid factor of multiple sites without organ or systems involvement Complete Blood Count Auto Diff 3 Months M05.79 - Rheumatoid arthritis with rheumatoid factor of multiple sites without organ or systems involvement C Reactive Protein 3 Months M05.79 - Rheumatoid arthritis with rheumatoid factor of multiple sites without organ or systems involvement Coding Level of Care Code Est Pt Level 4 (79553) Complex EM visit Add On G2211 Diagnoses Rheumatoid arthritis involving multiple sites with positive rheumatoid factor M05.79 Rheumatoid arthritis location: multiple sites Rheumatoid factor presence: with rheumatoid factor Osteopenia of multiple sites M85.89 Osteopenia location: multiple sites Latent tuberculosis Z22.7 High risk medication use Z79.899
[2024-02-06 09:48] VITALS: BP 132/70; PULSE 64; RESP 16; O2SAT 97; BMI 26.3
== END 2024-02-06 10:20 | disposition home or self-care (01) ==
PROVIDERS: PCP Student in an Organized Health Care Education/Training Program; Visit Provider Student in an Organized Health Care Education/Training Program
DX: M05.79 Rheumatoid arthritis with rheumatoid factor of multiple sites without organ or systems involvement (principal); M85.89 Other specified disorders of bone density and structure, multiple sites; Z22.7 Latent tuberculosis; Z79.899 Other long term (current) drug therapy
CPT/HCPCS: 99214; G2211

== ENCOUNTER → 2024-02-06 09:38 | Outpatient (BNVA) | payer OTHER, SELFPAY | PROVIDERS: PCP Student in an Organized Health Care Education/Training Program; Visit Provider Student in an Organized Health Care Education/Training Program | DX: M05.79 Rheumatoid arthritis with rheumatoid factor of multiple sites without organ or systems involvement (principal); M85.89 Other specified disorders of bone density and structure, multiple sites; Z22.7 Latent tuberculosis; Z79.899 Other long term (current) drug therapy | CPT/HCPCS: 99212 ==

== ENCOUNTER 2024-03-04 15:12 | Outpatient (AMB) | payer OTHER, SELFPAY ==
--- NOTE | 2024-03-04 15:14 | A.OFFVIS_ITS ---
Vital Signs 03/04/24 15:35 Height 4 ft 11 in Weight 131 lb BMI 26.5 BP 134/62 Blood Pressure Location Lt brachial Position Sitting Pulse 86 Intake Visit Reasons: gallbladder Intake Note: Patient is seen in office for evaluation and treatment of the gallbladder. Pt c/o: was having swallowing issues, food gets stuck when eating and us was order, denies symptoms nausea, vomit, admits to diarrhea us abd:12/12/23 Home Mission Worker Required: Yes Home Mission Worker Language: Rotary Slicing Machine Operator Services: Home Mission Worker Present Home Mission Worker Name: Astrid Pineda Information Interpreted: non-clinical & clinical Accompanied by: Grand Child Allergies losartan Adverse Reaction (Mild, Verified 03/04/24 15:20) Cough Medication List - Last Reconciled 03/05/24 by Dano Canada MD albuterol sulfate 90 mcg/actuation (Ventolin HFA) 2 puffs inhalation Q4-6H PRN 30 days alendronate 70 mg PO QWEEK amlodipine 5 mg PO DAILY aspirin 81 mg PO BEDTIME atorvastatin 40 mg PO BEDTIME blood sugar diagnostic As directed calcium carbonate-vitamin D3 600 mg-20 mcg (800 unit) tabs PO carvedilol 3.125 mg PO BID cyanocobalamin (vitamin B-12) 1,000 mcg PO DAILY donepezil 10 mg PO DAILY Enbrel SureClick (etanercept) 50 mg subcut QWEEK NS famotidine 40 mg PO BEDTIME fluoxetine 10 mg PO DAILY fluticasone propion-salmeterol 250-50 mcg/dose (Advair Diskus) 1 inh inhalation BID 30 days fluticasone propion-salmeterol 500-50 mcg/dose 1 ea PO BID fluticasone propionate 50 mcg/actuation 2 sprays intranasal DAILY furosemide 20 mg PO DAILY gabapentin 300 mg PO BEDTIME insulin glargine (Lantus Solostar U-100 Insulin) units subcut lancets As directed lidocaine 5% 1 patch topical DAILY methimazole 10 mg PO BID pantoprazole 40 mg PO QAM pen needle, diabetic As directed pyridoxine (vitamin B6) 50 mg PO DAILY 30 days sitagliptin phosphate (Januvia) 50 mg PO DAILY HPI Comments Details: 77-year-old female patient presenting with her granddaughter for evaluation of abdominal pain and gallstones. Her past history is significant for hypercholesterolemia, diabetes, hypertension, GERD, arthritis, restrictive lung disease and COPD, hyperthyroidism with a history of nausea and epigastric pain after eating. The pain is occasionally associated with vomiting as well. There are no particular foods that seem to bother her more. She complains of loose stool as well but denies any bleeding. She was evaluated with an abdominal ultrasound on 12/12/2023 which revealed gallstones within the gallbladder but no secondary evidence of cholecystitis. Upper GI series performed on 10/03/2024 r evealed evidence of dysmotility, hiatal hernia, and gastric ulceration. She presents today to discuss management of her gallstones. 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) Alcohol intake: never Patient Tobacco Use Status: Never used Tobacco e-Cigarette/Vaping Use: Never Used Second Hand Smoke Exposure: No service: No Current occupational status: unemployed Review of Systems Const All systems reviewed & are unremarkable except as noted in HPI and below Denies chills, Denies fever(s), Denies headache(s), Denies poor appetite and Denies weakness ENT Denies headache(s) Card Denies chest pain, Denies irregular heart rhythm, Denies palpitations and Denies dyspnea Resp Denies cough, Denies excessive phlegm production and Denies dyspnea GI Reports abdominal pain, Denies bloating, Denies change in bowel habits, Denies constipation, Denies heartburn, Reports diarrhea, Reports nausea and Reports vomiting Denies urinary frequency Musc Denies back pain, Denies muscle weakness and Denies numbness Skin/Breast Denies changing lesions and Denies unusual bruising Neuro Denies headache(s), Denies numbness, Denies paresthesias and Denies weakness Psych Denies anxiety and Denies depression Endo Denies palpitations Uche/Lymph Denies lymphadenopathy Physical Exam Vital Signs: Last Vital Signs Pulse 86 03/04/24 15:35 BP 134/62 03/04/24 15:35 BMI result Body Mass Index 26.5 Const General: cooperative and no acute distress Nutritional Appearance: well nourished Orientation/consciousness: patient oriented x3 Limitations: no limitations HEENT Head: Yes normocephalic and Yes atraumatic Ears: hearing grossly normal bilaterally Resp Effort & Inspection: normal respiratory effort, no audible wheezes, no cough and no respiratory distress Cardio Jugular venous distension: no JVD GI Inspection: Yes normal to inspection Palpation (GI): Soft to palpation, Tenderness to palpation present (GI) in the RUQ; Trejo's sign negative, no guarding, not rigid and No hepatosplenomegaly present Skin Other: Warm, dry, no rash, normal color Neuro General: patient oriented x3 Extrem General: Yes no clubbing, cyanosis or edema Assessment & Plan Assessment & Plan (1) Abdominal pain, right upper quadrant: Code(s): R10.11 - Right upper quadrant pain Category: Medical Plan 78-year-old female patient with vague abdominal symptoms found to have gallst ones by CT. The patient's symptoms it may be due to her esophageal and gastric issues however some of the symptoms could be related to gallstone. I recommended further evaluation of the gallbladder with a HIDA scan. I have asked her to return following the study to review the results and discuss treatment options. Orders: Orders NM hepatobiliary w pharm 03/04/24 R10.11 - Right upper quadrant pain Coding Level of Care Code New Pt Level 4 (45768) Diagnoses Abdominal pain, right upper quadrant R10.11
[2024-03-04 15:35] VITALS: BP 134/62; PULSE 86; BMI 26.5
== END 2024-03-04 15:40 | disposition home or self-care (01) ==
PROVIDERS: PCP Student in an Organized Health Care Education/Training Program; Visit Provider Surgery
DX: R10.11 Right upper quadrant pain (principal)
CPT/HCPCS: 99204

== ENCOUNTER → 2024-03-04 15:12 | Outpatient (BNVA) | payer OTHER, SELFPAY | PROVIDERS: PCP Student in an Organized Health Care Education/Training Program; Visit Provider Surgery | DX: R10.11 Right upper quadrant pain (principal) | CPT/HCPCS: 99202 ==

== ENCOUNTER → 2024-03-25 09:09 | Outpatient (BNV) | payer OTHER, SELFPAY | PROVIDERS: PCP Student in an Organized Health Care Education/Training Program; Referring Provider Student in an Organized Health Care Education/Training Program; Visit Provider Internal Medicine Medical Oncology | DX: D72.829 Elevated white blood cell count, unspecified (principal) | CPT/HCPCS: 99204 ==

== ENCOUNTER 2024-03-25 10:41 | Outpatient (REF) | payer OTHER, SELFPAY ==
[2024-03-25 10:59] LABS: MANUAL DIFF FLAG NO
[2024-03-25 11:55] LABS: Basophils Absolute Auto 0.1 X10*3/uL (0.0-0.2); Basophils Percent Auto 0.7 % (0-2); Eosinophils Absolute Auto 0.9 X10*3/uL (0.0-0.4); Eosinophils Percent Auto 7.6 % (0-4); Hematocrit 35.1 % (37.0-47.0); Hemoglobin 11.2 g/dl (12.0-16.0); Imm Gran Abs Auto 0.04 X10*3/uL (0.00-0.03); Imm Gran Pct Auto 0.4 % (0.0-0.4); Lymphocytes Percent Auto 26.6 % (20-40); Mean Corpuscular HGB Conc 31.9 g/dl (31.0-35.0); Mean Corpuscular Volume 90.9 fL (80.0-98.0); Mean Platelet Volume 11.1 fL (9.4-12.3); Monocytes Absolute Auto 1.4 X10*3/uL (0.1-1.2); Monocytes Percent Auto 12.6 % (2-11); Neutrophils Absolute Auto 5.9 x10*3/uL (2.0-8.3); Neutrophils Percent Auto 52.1 % (45-73); Platelet Count 253 X10*3/uL (160-400); Red Blood Count 3.86 X10*6/uL (4.20-5.50); Red Cell Distribution Width 13.5 % (11.0-16.0); White Blood Count 11.3 X10*3/uL (4.8-10.8)
[2024-03-25 12:35] LABS: Erythrocyte Sedimentation Rate 39 MM/HR (0-20)
[2024-03-25 12:47] LABS: Alanine Aminotransferase 28 U/L (0-31); Albumin Level 4.1 g/dL (3.5-5.0); Alkaline Phosphatase 92 U/L (39-117); Anion Gap 10 (12-20); Aspartate Amino Transferase 30 U/L (5-31); Bilirubin Total 0.5 mg/dL (0.0-1.0); Blood Urea Nitrogen 20 mg/dL (9-16); C Reactive Protein 3.49 mg/dL (< or = 0.50); Calcium 9.1 mg/dL (8.4-10.2); Carbon Dioxide 26 mmol/L (22-29); Chloride 110 mmol/L (96-108); Estimated Glomerular Filt Rate 46; Glucose Random 169 mg/dL (60-115); Potassium 3.6 mmol/L (3.3-5.1); Sodium 142 mmol/L (135-145); Total Protein 8.1 g/dL (6.5-8.0)
== END 2024-03-25 10:42 | disposition home or self-care (01) ==
LOC: HO.LAB 10:41
PROVIDERS: PCP Student in an Organized Health Care Education/Training Program; Visit Provider Student in an Organized Health Care Education/Training Program
DX: M05.79 Rheumatoid arthritis with rheumatoid factor of multiple sites without organ or systems involvement (principal); Z22.7 Latent tuberculosis
CPT/HCPCS: 36415; 80053; 85025; 85652; 86140

== ENCOUNTER → 2024-04-04 10:22 | Outpatient (REF) | payer OTHER, SELFPAY ==
--- NOTE | ~2024-04-04 | NM_ITS ---
EXAMINATION: NM BILIARY TRACT CLINICAL INFORMATION: Right upper quadrant pain. Gallstones COMPARISON: Abdominal ultrasound 12/12/2023. TECHNIQUE: Following intravenous administration of 5 mCi of technetium 99m mebrofenin, imaging over the right upper quadrant was obtained up to 60 minutes. At 60 minutes 1.2 mcg of CCK was administered 30 minutes and imaging obtained up to 30 minutes. FINDINGS: There is normal hepatic uptake with no focal defects seen. CBD and small bowel is visualized at the same time by 10 minutes. Gallbladder is visualized by 30 minutes. Post-CCK the gallbladder ejection fraction at 10 minutes is 3%, at 20 minutes is 10% and and at 30 minutes is 11%. NM/NM hepatobiliary w pharm IMPRESSION: Dyskinetic gallbladder with the gallbladder ejection fraction of 11% at 30 minutes. Normal hepatic uptake. Patent cystic duct and patent CBD. Electronically signed by: Kojo Dewey MD 04/04/2024 02:14 PM [facility] [place]
== END ==
LOC: HO.NUCMED 10:22
PROVIDERS: PCP Student in an Organized Health Care Education/Training Program; Visit Provider Surgery
DX: R10.11 Right upper quadrant pain (principal)
CPT/HCPCS: 78227; A9537; J2805

== ENCOUNTER → 2024-04-04 10:26 | Outpatient (BNV) | payer OTHER, SELFPAY | PROVIDERS: PCP Student in an Organized Health Care Education/Training Program; Visit Provider Radiology Diagnostic Radiology | DX: K82.8 Other specified diseases of gallbladder (principal); K83.9 Disease of biliary tract, unspecified | CPT/HCPCS: 78227 ==

== ENCOUNTER 2024-04-09 13:38 | Outpatient (AMB) | payer OTHER, SELFPAY ==
[2024-04-09 13:57] VITALS: BP 124/64; PULSE 67; O2SAT 98; BMI 26.7
--- NOTE | 2024-04-09 13:57 | A.OFFVIS_ITS ---
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 Required: No Allergies losartan Adverse Reaction (Mild, Verified 04/09/24 14:14) Cough Medication List - Last Reconciled 04/09/24 by Glen Melendez MD albuterol sulfate 90 mcg/actuation (Ventolin HFA) 2 puffs inhalation Q4-6H PRN 30 days alendronate 70 mg PO QWEEK amlodipine 5 mg PO DAILY aspirin 81 mg PO BEDTIME atorvastatin 40 mg PO BEDTIME blood sugar diagnostic As directed calcium carbonate-vitamin D3 600 mg-20 mcg (800 unit) 600 tabs PO DAILY carvedilol 3.125 mg PO BID cyanocobalamin (vitamin B-12) 1,000 mcg PO DAILY donepezil 10 mg PO DAILY Enbrel SureClick (etanercept) 50 mg subcut QWEEK NS famotidine 40 mg PO BEDTIME fluoxetine 10 mg PO DAILY fluticasone propion-salmeterol 500-50 mcg/dose 1 ea PO BID fluticasone propionate 50 mcg/actuation 2 sprays intranasal DAILY furosemide 20 mg PO DAILY gabapentin 300 mg PO BEDTIME Incruse Ellipta 62.5 mcg/actuation (umeclidinium) 1 inh inhalation DAILY NS insulin glargine (Lantus Solostar U-100 Insulin) 100 units subcut DAILY lancets As directed lidocaine 5% 1 patch topical DAILY methimazole 10 mg PO BID pantoprazole 40 mg PO QAM pen needle, diabetic As directed pyridoxine (vitamin B6) 50 mg PO DAILY 30 days sitagliptin phosphate (Januvia) 50 mg PO DAILY Do you need a note to return to daycare/school/sports/work: No HPI HPI Asthma: Details: Hue is 78 years old female, Who is being followed for chronic obstructive pulmonary disease and restrictive lung disease for long time. She has had latent tuberculosis, but does not need any treatment at this time. She is always short of breath especially when she walks around. But has not needed O2. He is using Advair 500-50 twice a day and Incruse Ellipta once a day. She uses albuterol only once in a while. There has been no respiratory infection recently. She gets intermittent cough which is mostly due to nasal congestion . [facility]LY [facility] Medical History Latent tuberculosis Restrictive lung disease CAD (coronary artery disease) Asthma Allergic rhinitis COPD exacerbation COPD (chronic obstructive pulmonary disease) Cough Hypertension Diabetes Surgical History History of hysterectomy Hx of CABG Family History Mother Acute arthritis Social History Household Members: Family Housing: Apartment Do you presently have visiting nurse or other home services: Yes ([facility] and [employer]) Alcohol intake: never Patient Tobacco Use Status: Never used Tobacco e-Cigarette/Vaping Use: Never Used Second Hand Smoke Exposure: No service: No Current occupational status: unemployed Review of Systems Const All systems reviewed & are unremarkable except as noted in HPI and below Eyes Reports no additional complaints ENT Reports nasal congestion (Mild off and) Card Denies chest pain and Reports dyspnea on exertion Resp Reports as per HPI and Reports dyspnea on exertion GI Reports no additional complaints Reports no additional complaints Musc Reports back pain Skin/Breast Reports system reviewed and no additional complaints, except as documented Neuro Reports no additional complaints Psych Reports anxiety Endo Reports no additional complaints Uche/Lymph Reports no additional complaints Physical Exam Vital Signs: Last Vital Signs Pulse 67 04/09/24 13:57 BP 124/64 04/09/24 13:57 Pulse Ox 98 04/09/24 13:57 Oxygen Delivery Method Room Air 04/09/24 13:57 BMI result Body Mass Index 26.7 Const General: comfortable (But short of breath during conversation), no acute distress, alert and awake Orientation/consciousness: patient oriented x3 HEENT Head: Yes normal to inspection General nose exam: No nasal polyps present and No nasal discharge present Face and sinus: Yes sinuses nontender Mouth: oropharynx normal Throat: Yes posterior oropharynx normal Eyes General: appearance normal, both eyes and all related structures Neck Neck: Yes normal visual inspection, Yes no lymphadenopathy, Yes trachea midline and Yes no JVD Thyroid: Thyroid normal Chest Chest palpation & inspection: abnormal inspection of the chest (Midline sternal scar from previous cardiac surgery), normal palpation of entire chest wall and no tenderness Resp Other: Percussion note is resonant, breath sounds are distant with prolonged, expiratory phase No active wheezes or crepitations are heard today. Cardio Palpation: normal PMI Rate: regular rate Rhythm: regular rhythm Heart sounds: no gallops and no murmurs GI Palpation (GI): Soft to palpation, nontender, No hepatosplenomegaly present and no masses Auscultation: normal bowel sounds Back/Spine/Pelvis Thoracic/Lumbar Spine: thoracic and lumbar spine normal to inspection Skin General skin exam: no rashes or lesions noted Neuro General: patient oriented x3 and no focal motor deficits Cranial nerves: Yes CN's II-XII intact bilaterally Extrem General: Yes normal to inspection, Yes no clubbing, cyanosis or edema and Yes no calf tenderness Psych Appearance: grossly normal Speech and movement: Normal speech and movement present Affect: Anxious affect present Assessment & Plan Assessment & Plan (1) COPD (chronic obstructive pulmonary disease): Comment: This patient has long-standing history of chronic obstructive pulmonary disease. She appears to be fairly stable at this time. Pulmonary function test in 2021 showed mostly restrictive pulmonary disorder. But the obstructive component cannot be ruled out. She is doing well on her current Regimen . Code(s): J44.9 - Chronic obstructive pulmonary disease, unspecified Category: Medical Plan: Advair 500-51 inhalation b.i.d. Incruse Ellipta 1 inhalation daily Albuterol HFA 2 puffs Q 6 hours p.r.n.. (2) Restrictive lung disease: Comment: This patient has had previous chest surgery, has a long mid sternal scar. Pulmonary function test has shown moderately severe restrictive pulmonary disorder. This is mainly the reason for her shortness of breath on exertion. Code(s): J98.4 - Other disorders of lung Category: Medical Plan: Explained to the patient and her daughter. Advised to keep on doing deep breathing exercises as much as she can. (3) Allergic rhinitis: Comment: This is chronic , seems well controlled . Code(s): J30.9 - Allergic rhinitis, unspecified Category: Medical Plan: May use Flonase 2 sprays in each nostril daily but as needed Coding Level of Care Code Est Pt Level 3 (21634) Diagnoses COPD (chronic obstructive pulmonary disease) J44.9 Restrictive lung disease J98.4 Allergic rhinitis J30.9
== END 2024-04-09 14:20 | disposition home or self-care (01) ==
PROVIDERS: PCP Student in an Organized Health Care Education/Training Program; Visit Provider Internal Medicine
DX: J44.9 Chronic obstructive pulmonary disease, unspecified (principal); J98.4 Other disorders of lung; J30.9 Allergic rhinitis, unspecified
CPT/HCPCS: 99213

== ENCOUNTER → 2024-04-09 13:38 | Outpatient (BNVA) | payer OTHER, SELFPAY | PROVIDERS: PCP Student in an Organized Health Care Education/Training Program; Visit Provider Internal Medicine | DX: J44.9 Chronic obstructive pulmonary disease, unspecified (principal); J98.4 Other disorders of lung; J30.9 Allergic rhinitis, unspecified | CPT/HCPCS: 99212 ==

== ENCOUNTER 2024-04-22 10:27 | Outpatient (AMB) | payer OTHER, SELFPAY ==
--- NOTE | 2024-04-22 10:33 | MHC.OFFVIS ---
Vital Signs 04/22/24 10:35 Height 4 ft 11 in Weight 132 lb 4.438 oz BMI 26.7 Pulse 66 Intake Visit Reasons: HIDA scan results, following gallbladder Intake Note: Patient is seen in office for HIDA scan results, following abdominal pain, right upper quadrant. Pt c/o: continued pain, here for results HIDA:04/04/24 Excellence Manager Required: Yes Excellence Manager Language: Tax Expert Services: Excellence Manager Present Excellence Manager Name: Astrid REYNA Information Interpreted: non-clinical & clinical Network Architect: Network Architect Present Accompanied by: Family/Other Allergies losartan Adverse Reaction (Mild, Verified 04/22/24 10:33) Cough HPI Comments Details: 78-year-old female patient presenting with her granddaughter for evaluation of abdominal pain and gallstones. Her past history is significant for hypercholesterolemia, diabetes, hypertension, GERD, arthritis, restrictive lung disease and COPD, hyperthyroidism with a history of nausea and epigastric pain after eating. The pain is occasionally associated with vomiting as well. There are no particular foods that seem to bother her more. She complains of loose stool as well but denies any bleeding. She was evaluated with an abdominal ultrasound on 12/12/2023 which revealed gallstones within the gallbladder but no secondary evidence of cholecystitis. Upper GI series performed on 10/03/2024 revealed evidence of dysmotility, hiatal hernia, and gastric ulceration. She presents today to discuss management of her gallstones. She underwent a HIDA scan on 04/04/2024. This revealed normal hepatic uptake with filling of the gallbladder within 30 minutes. The common bile duct the small bowel was visualized within 10 minutes. Post CCK ejection fraction after 30 minutes was 11% suggestive of biliary dyskinesia/chronic cholecystitis. Patient returns today to discuss results of this testing. FOR[facility]LY [facility], LAT[facility] Medical History Latent tuberculosis Restrictive lung disease CAD (coronary artery disease) Asthma Allergic rhinitis COPD exacerbation COPD (chronic obstructive pulmonary disease) Cough Hypertension Diabetes Surgical History History of hysterectomy Hx of CABG Family History Mother Acute arthritis Social History Household Members: Family Housing: Apartment Do you presently have visiting nurse or other home services: Yes ([facility] and [employer]) Alcohol intake: never Patient Tobacco Use Status: Never used Tobacco e-Cigarette/Vaping Use: Never Used Second Hand Smoke Exposure: No service: No Current occupational status: unemployed Review of Systems Const All systems reviewed & are unremarkable except as noted in HPI and below Denies chills, Denies fever(s), Denies headache(s), Denies poor appetite and Denies weakness ENT Denies headache(s) Card Denies chest pain, Denies irregular heart rhythm, Denies palpitations and Denies dyspnea Resp Denies cough, Denies excessive phlegm production and Denies dyspnea GI Reports abdominal pain, Denies bloating, Denies change in bowel habits, Denies constipation, Denies heartburn, Reports diarrhea, Reports nausea and Reports vomiting Denies urinary frequency Musc Denies back pain, Denies muscle weakness and Denies numbness Skin/Breast Denies changing lesions and Denies unusual bruising Neuro Denies headache(s), Denies numbness, Denies paresthesias and Denies weakness Psych Denies anxiety and Denies depression Endo Denies palpitations Uche/Lymph Denies lymphadenopathy Physical Exam Vital Signs: Last Vital Signs Pulse 66 04/22/24 10:35 BMI result Body Mass Index 26.7 Const General: cooperative and no acute distress Nutritional Appearance: well nourished Orientation/consciousness: patient oriented x3 Limitations: no limitations HEENT Head: Yes normocephalic and Yes atraumatic Ears: hearing grossly normal bilaterally Resp Effort & Inspection: normal respiratory effort, no audible wheezes, no cough and no respiratory distress Cardio Jugular venous distension: no JVD GI Inspection: Yes normal to inspection Palpation (GI): Soft to palpation, Tenderness to palpation present (GI) in the RUQ; Trejo's sign negative, no guarding, not rigid and No hepatosplenomegaly present Skin Other: Warm, dry, no rash, normal color Neuro General: patient oriented x3 Extrem General: Yes no clubbing, cyanosis or edema Assessment & Plan Assessment & Plan (1) Biliary dyskinesia: Code(s): K82.8 - Other specified diseases of gallbladder Category: Medical Plan 78-year-old female patient returning following her recent HIDA scan evaluation. This revealed normal filling of the gallbladder however after CCK stimulation, the ejection fraction was only 11% after 30 minutes (normal 50%). This finding is suggestive of biliary dyskinesia and may indicate a benefit with cholecystectomy. The findings were discussed in detail with the patient and her granddaughter. The patient is not interested in surgery due to her multiple medical problems which is certainly reasonable. No surgical intervention is recommended at this time. She should follow up as needed. Coding Level of Care Code Est Pt Level 3 (47627) Diagnoses Biliary dyskinesia K82.8
[2024-04-22 10:35] VITALS: PULSE 66; BMI 26.7
--- OUTSIDE RECORDS SUMMARY | 2024-04-22 11:17 | XMS_ITS | Encounter Summary ---
Author Organization [employer] Address [address] [place] [address] Care Team Providers Care Body Design Checker Name Role Phone Cecy Gonzalez Primary Care Provider [phone] Hue Meza MD Primary Care Pro vider Encounter Details Date Type Department Care Team (Late st Contact Info) Description 10/31/2022 Telephone [facility] [address] [place] [address] Cecy Gonzalez FNP [address] [facility] Dept [place] [address] Social History Tobacco Use Types Packs/Day Years Used Date Smoking Tobacco: Never Assessed Depression Answer Date Recorded Patient Health Questionnaire-9 Score 12 10/16/2023 Patient Health Questionnaire-9 Score 12 10/16/2023 Last PHQ-9: Questionnaire Data Not on file 0 10/16/2023 Housing Stability Answer Date Recorded What is your housing situation today? I have arron bailey 11/30/[address] you li ve. Do you have problems with any of the following? None of the above 11/30/2023 Food Insecurity Answer Date Recorded Within the past 12 months, y ou worried that your food would run out before you got money to buy more: Never True 11/30/2023 Within the past 12 months,th e food you bought just didn't last and you didn't have enough money to get more: Never True Transportation Answer Date Recorded In the past 12 months, has l ack of transportation kept you from medical appts, meetings, work or from getting things needed for daily living? No 11/30/2023 Utilities Answer Date Recorded In the past 12 months, has t he electric, gas, oil or water company threatened to shut off services in your home? No 11/30/2023 Depression Answer Date Recorded Patient Health Questionnaire-2 Score 2 10/16/2023 Internet Access Answer Date Recorded Internet Access Q1 Yes 11/30/2023 Internet Access Q2 Not on file 11/30/2023 Comments Unknown Sex and Gender Information Value Date Recorded Sex Assigned at Female 01/16/2022 10:22 AM EDT Legal Sex Female 10:22 AM EDT Gender Identity Female 01/16/2022 10:22 AM EDT Sexual Orientation Straight 01/16/2022 10 :22 AM EDT documented as of this encounter Miscellaneous Notes * Telephone Encounter - Katherin Bonilla - 10/31/2022 2:10 PM EDT Tc from pt returning call. Please contact at [phone] Bengali documented in this encounter Plan of Treatment Upcoming Encounters Date Type Department Care Team (Late st Contact Info) Description 05/16/2024 11:00 AM EST Medication Management [facility] [address] [place] [address] Fely Bowens, PharmD [address] [place] [address] documented as of this encounter Goals Goal Patient Goal Type Associated Problems Recent Progress Patient-Stated? Author Blood Pressure < 140/90 Blood Pressure 138/74(2023 11:08 AM EST) No Boby Aannd Hemoglobin A1c < 8 Result Component 7.7( 10:33 AM EST) No Boby Anand documented as of this encounter Visit Diagnoses Not on filedocumented in this encounter Care Teams Body Design Checker Relationship Specialty Start Date End Date Cecy Gonzalez FNP PCP - General Family Medicine 08/22/22 12/21/22 Hue Meza MD [address] [place] [id number] PCP - General Internal Medicine 12/22/22 documented as of this encounter
--- OUTSIDE RECORDS SUMMARY | 2024-04-22 11:17 | XMS_ITS | Data Portability ---
Author Organization [facility], [place] - [facility] Address [address] [place] [id number] Care Team Providers Care Swahili Teacher Name Role Phone [facility] Referring Provider [phone] [facility] Referring Provider Assessment Encounter Date Assessment Date Assessment LastModified by Organization Details LastModified Time 07/13/2021 07/13/2021 I have reviewed and agree with the Assessment and Plan as documented by the Testing Machine Operator. I provided real -time medical direction via phone for this encounter, and was available for additional phone based assistance as needed. Patient given the opportunity to ask questions. [email or web address] Not available 07/13/2021 19:23:03 Plan of Treatment Reminders Order Date Submit Date Provider Last Modified By Organization Details Last Modified Time Details Appointments None recorded. Lab rapid flu (A+B) [email or web address] [facility], [address] [place] [address], [phone], 18:48:47 glucose, fingerstick , blood 2021 022 [email or web address], [phone], 18:48:46 rapid SARS CoV 2 Ag, QL IA, respiratory specimen 2021 022 [email or web address], [phone], 18:48:46 Referral None recorded. Procedures None recorded. Surgeries None recorded. Imaging None recorded. Medication Orders prednisone 20 mg tablet 2021 022 [email or web address] 0 Not available 18:48:46 prednisone [address] mg tablet [address] [facility], [address] [facility], [place], [place], [phone], 19:01:03 Patient TargetsNo targets recorded. Patient InstructionsNo instructions recorded. Reason for Referral None Reported. Results Created Date Observation Date Name Description Value Unit Range Abnormal Flag Note LastModifiedBy Organization Detail LastModifiedTime 07/14/19 22 07/13/2021 gluco se, finge rstic k, blood Blood Glucose: mg/dl 138 Not Available [facility] - [facility] [address] [place] [address], [phone], 07/13/2021 18:41:35 07/14/19 22 07/13/2021 rapid SARS CoV 2 Ag, QL IA, respi rator y speci men rapid SARS CoV 2 Ag, QL IA, respiratory specimen negati ve Not Available [facility] [address] [place] [address], [phone], 07/13/2021 18:41:44 07/14/19 22 07/13/2021 rapid flu (A+B) Flu negati ve Not Available [facility] [address] [place] [address], [phone], 07/13/2021 18:41:29 Result Notes None recorded. Medical Equipment None Reported. Allergies No known drug allergies Medications Name Sig Start Date Stop Date Status Note LastModified by Organization Details LastModified Time atorvastatin 40 mg tablet TAKE 1 TABLET BY MOUTH EVERY EVENING active Not Available Not Available No t Available albuterol sulfate 2.5 mg/3 mL (0.083 %) solution for nebulization INHALE 1 AMPULE USING A NEBULIZER THREE TIMES DAILY (for COPD) / FOR ASTHMA active Not Available Not Available No t Available azithromycin 250 mg tablet TAKE 2 TABLETS BY MOUTH ON DAY 1, THEN TAKE 1 TABLET DAILY ON DAYS 2-5 active Not Available Not Available No t Available donepezil 10 mg tablet TAKE 1 TABLET BY MOUTH AT BEDTIME active Not Available Not Available No t Available prednisone 20 mg tablet TAKE 2 TABLETS BY MOUTH DAILY FOR 3 DAYS active Not Available Not Available N ot Available prednisone 5 mg tablet TAKE 2 TABLETS BY MOUTH DAILY FOR 1 WEEK, THEN TAKE 1 TABLET BY MOUTH ONCE DAILY FOR 1 WEEK. active Not Available Not Available No t Available aspirin 81 mg tablet,delay ed release TAKE 1 TABLET BY MOUTH EVERY EVENING active Not Available Not Available No t Available doxycycline monohydrate 100 mg tablet TAKE 1 TABLET BY MOUTH TWICE DAILY FOR 7 DAYS active Not Available Not Available No t Available carvedilol 3.125 mg tablet TAKE 1 TABLET BY MOUTH TWICE DAILY IN THE MORNING AND IN THE EVENING WITH FOOD active Not Available Not Available No t Available fluticasone 500 mcg-salmeter ol 50 mcg/dose blistr powdr for inhalation INHALE 1 PUFF BY MOUTH TWICE DAILY. RINSE MOUTH AFTER USING.. active Not Available Not Available No t Available losartan 25 mg tablet TAKE 1 TABLET BY MOUTH EVERY MORNING active Not Available Not Available No t Available fluoxetine 10 mg capsule TAKE 1 CAPSULE BY MOUTH EVERY MORNING active Not Available Not Available No t Available gabapentin 300 mg capsule TAKE 1 CAPSULE BY MOUTH AT BEDTIME active Not Available Not Available No t Available hydralazine 50 mg tablet TAKE 1 TABLET BY MOUTH THREE TIMES DAILY IN THE MORNING, AT NOON, AND IN THE EVENING WITH FOOD active Not Available Not Available No t Available furosemide 20 mg tablet TAKE 1 TABLET BY MOUTH EVERY MORNING active Not Available Not Available No t Available cefuroxime axetil 500 mg tablet TAKE 1 TABLET BY MOUTH TWICE DAILY UNTIL FINISHED active Not Available Not Available No t Available fluticasone propionate 50 mcg/actuatio n nasal spray,suspen gricel INHALE 2 SPRAYS IN EACH NOSTRIL ONCE DAILY active Not Available Not Available N ot Available Ventolin HFA 90 mcg/actuatio n aerosol inhaler INHALE 2 PUFFS BY MOUTH EVERY 4 TO 6 HOURS NEEDED active Not Available Not Available No t Available mirtazapine 7.5 mg tablet TAKE 1 TABLET BY MOUTH AT BEDTIME active Not Available Not Available No t Available UltiCare Pen Needle 31 gauge x 16 USE DAILY active Not Available Not Available No t Available calcium 600 mg (as carbonate)-v itamin D3 10 mcg (400 unit) tablet TAKE 1 TABLET BY MOUTH EVERY MORNING active Not Available Not Available No t Available FreeStyle Lite Strips TEST BLOOD SUGAR 3 TIMES A DAY active Not Available Not Available Not Available Lantus Solostar U-100 Insulin 100 unit/mL (3 mL) subcutaneous pen INJECT 10 UNITS SUBCUTANEOU SLY AT BEDTIME DIRECTED active Not Available Not Available No t Available TRUEplus Lancets 33 gauge TEST BLOOD SUGAR THREE TIMES DAILY active Not Available Not Available Not Available Incruse Ellipta 62.5 mcg/actuatio n powder for inhalation INHALE 1 PUFF EVERY DAY AT THE SAME TIME active Not Available Not Available No t Available Vitals Date Recorded Body weight Provider Name an d Address Organization Details Last Updated DateTime 07/13/2021 24399.93 g Jagdish Clinton [address] [place] [address],[address], [place], [phone], [place] - [employer] 07/13/2021 19:21:29 Date Recorded Respiratory rate Heart rate Body temperature Oxygen saturation Oxygen saturation in Arterial blood by Pulse oximetry Body weight Body temperature Respiratory rate Oxygen saturation Oxygen saturation in Arterial blood by Pulse oximetry Heart rate Systolic blood pressure Diastolic blood pressure Systolic blood pressure Diastolic blood pressure Provider Name and Address Organization Details Last Updated DateTime 2 24 /min 72 /min 98.6 [degF] 97 % 97 % 83438.8 8 g 98.6 [degF] 24 /min 97 % 97 % 72 /min 113 mm[Hg] 74 mm[Hg] 113 mm[Hg] 74 mm[Hg] Not Available [facility] - production 19:10:34 Social History None recorded. Functional Status None recorded. Mental Status None recorded. Family History Nothing Reported. Medical History No medical history recorded. Gynecological HistoryNo gynecological history recorded. Obstetrics History GPAL:G 0 P 0 0 0 0 Past Encounters Encounter ID Performer Location Encounter Start Date Encounter Closed Date Diagnosis/Indication Diagnosis SNOMED-CT Code Diagnosis ICD10 Code Diagnosis Note [id number] Larisa Shaver MD Main - [employer] [address] [place] [phone] 07/13/2021 18:37:50 11/24/2021 18:09:23 Acute exacerbation of chronic obstructive pulmonary disease 967027664 J44.1 pat advised can use nebs (albuterol ) q 4 if sob not once daily. Gave herself her own neb when MIH present. BS good 138- takes lantus 10 units sc daily- does not always check BS regularly- Has no sliding scale/awar e prednisone could cause incr BS. W/ help of interprete r from language line expl to check bs ac 3 x per day while on prednisone - keep diary of same and call PCP if BS>299. Will hydrate po. Aware if develops CP/cyanosi s/ severe SOB to call 911. Will f/u with PCP within 48 hrs. Health Concerns Section Related Observation LastModified by Organization Detai ls LastModified Time None Recorded Concern Status LastModified by Organization Details LastModified Time None Recorded Advance Directives Directive None Recorded Payers Encounter Date Sequence Insurance Name Policy Number Policy Clark Covered Member ID Clark Member ID Guarantor Name 07/13/2021 1 [facility] - DOS PRIOR TO 2022 - DUAL ELIGIBLE (MEDICARE REPLACEMENT/ADV ANTAGE - HMO) Hue Russell [id number] Hue Russell Notes Date Note Type Note Provider Name and Address Organization Details Recorded Time 07/13/2021 text/html HPI: Patient reports having SOB on exertion, and wheezing. Using rescue inhaler and nebulizer more frequently. Also having very dry cough. Denies any fever, CP or NAVA. Pt has hx of COPD. Unable to come to our walk in for evaluation. Could hear some expiratory wheezing during call . Pt states SOB is worse than baseline. ..................... ..................... ..................... ..................... ..................... ..................... ............... Testing Machine Operator Note: Evaluated pt with assistance from auger machine offbearer, c/o sob/guillermo. Upon arrival, pt is awake and alert, airway open and patent, breathing tachypneic at 24/min. Pt speaking in nearly full sentences but has some sob. Pt states that she's been having sob/guillermo x several weeks now, has hx of COPD. Last hospitalization was 02/06 and resulted with 2 day admission and course of prednisone. Pt states she doesn't feel sick enough at this point to return to hospital. Skin is warm and dry with good turgor. Breath sounds reveal rhonchi bilaterally. Pt has slight, dry cough which presents as her clearing her throat. No JVD, no pedal edema. Pt's only other complaints are pain in multiple joints from OA which are no worse than normal. BGL 138. Rapid covid and rapid flu both negative, afebrile. Pt has nebulizer at home with albuterol but has not taken treatment since yesterday. Assisted pt with taking her own neb treatment and consulted [facility]. [facility] ordered q4 neb treatments, plenty of fluid intake, 40mg of PO prednisone to be dispensed now with a script to be sent to pharmacy. [facility] detailed treatment plan with request that pt f/u with pcp <48 hours. Went over red flags and no further questions or concerns at this time. ..................... ..................... ..................... ..................... ..................... ..................... ............... Disposition: Fulfilled Larisa Shaver MD [address] [facility],[address], [place], [phone], [employer] [facility] [employer] 07/13/2021 19:26:34 OBGyn Episode No OBEpisode recorded.
--- OUTSIDE RECORDS SUMMARY | 2024-04-22 11:17 | XMS_ITS | Encounter Summary ---
Author Organization [employer] Address [address] [place] [address] [address] [place] [address] Care Team Providers Care Die Maintenance Technician Name Role Phone Cecy Gonzalez Primary Care Provider [phone] Cecy Gonzalez BROOM HANDLE DIPPER Primary Care Provider [phone]- [phone] Hue Meza MD Primary Care Pro vider Encounter Details Date Type Department Care Team (Late st Contact Info) Description 05/15/2022 Orders Only [facility] MED & PEDS [address], [place] [phone] Lindsey Ascencoi LPN Social History Tobacco Use Types Packs/Day Years Used Date Smoking Tobacco: Never Assessed Comments Unknown Sex and Gender Information Value Date Recorded Sex Assigned at Female 01/16/2022 10:22 AM EDT Legal Sex Female 10:22 AM EDT Gender Identity Female 01/16/2022 10:22 AM EDT Sexual Orientation Straight 01/16/2022 10 :22 AM EDT documented as of this encounter Plan of Treatment Upcoming Encounters Date Type Department Care Team (Late st Contact Info) Description 05/16/2024 11:00 AM EST Medication Management [facility] MEDICINE [address] [place] [address] Fely Bowens, PharmD [address] [place] [address] documented as of this encounter Procedures Procedure Name Priority Date/Time Associated Diagnosis Comments T4, FREE Routine 11/02/2022 2:27 PM EDT documented in this encounter Results * T4, Free (11/02/2022 2:27 PM EDT) Free T4 (Free Thyroxine) 1.72 0.71 - 1.85 ng/dL [facility] 11/02/2022 2:27 PM EDT 11/02/2022 4:03 PM EDT Cecy [facility]ARR[facility] BLOOD ORDERABLES Final Result [facility] [address] [place] [address] [phone] documented in this encounter Visit Diagnoses Not on filedocumented in this encounter Care Teams Die Maintenance Technician Relationship Specialty Start Date End Date Cecy Gonzalez FNP PCP - General Family Medicine 03/24/22 08/21/22 Cecy Gonzalez FNP PCP - General Family Medicine 08/22/22 12/21/22 Hue Meza MD [address] [place] [address] PCP - General Internal Medicine 12/22/22 documented as of this encounter
--- OUTSIDE RECORDS SUMMARY | 2024-04-22 11:17 | XMS_ITS | Encounter Summary ---
Author Organization [employer] Address [address] [facility] [address] [place] [address] Care Team Providers Care Poleyard Supervisor Name Role Phone Hue Meza MD Primary Care Pro vider Reason for Visit * Reason Comments Med Refill Encounter Details Date Type Department Care Team (Late st Contact Info) Description 12/28/2022 Refill [facility] [address] [place] [address] Cecy Gonzalez FNP [address] [place] [address] Dept [place] [address] Dementia without behavioral disturbance, psychotic disturbance, mood disturbance, or anxiety, unspecified dementia severity, unspecified dementia type (CMS/HCC) Social History Tobacco Use Types Packs/Day Years Used Date Smoking Tobacco: Unknown Depression Answer Date Recorded Patient Health Questionnaire-9 Score 15 12/05/2022 Housing Stability Answer Date Recorded What is your housing situation today? I have arron bailey 12/26/[address] you li ve. Do you have problems with any of the following? None of the above 12/26/2022 Food Insecurity Answer Date Recorded Within the past 12 months, y ou worried that your food would run out before you got money to buy more: Sometimes True 2022 Within the past 12 months,th e food you bought just didn't last and you didn't have enough money to get more: Sometimes True 12/26/2022 Transportation Answer Date Recorded In the past 12 months, has l ack of transportation kept you from medical appts, meetings, work or from getting things needed for daily living? Yes, it has kept me from medical appointments or getting medications. 12/26/2022 Utilities Answer Date Recorded In the past 12 months, has t he electric, gas, oil or water company threatened to shut off services in your home? No 12/26/2022 Depression Answer Date Recorded Patient Health Questionnaire-2 Score 3 12/05/2022 Comments Unknown Sex and Gender Information Value [...] Description 05/16/2024 11:00 AM EST Medication Management [facility] [address] [place] [phone] Fely Bowens PharmD [address] [place] [phone] documented as of this encounter Goals Goal Patient Goal Type Associated Problems Recent Progress Patient-Stated? Author Blood Pressure < 140/90 Blood Pressure 138/74(2023 11:08 AM EST) No Boby Anand Hemoglobin A1c < 8 Result Component 7.7( 10:33 AM EST) No Boby Anand documented as of this encounter Visit Diagnoses Diagnosis Dementia without behavioral disturbance, psychotic disturbance, mood disturbance, or anxiety, unspecified dementia severity, unspecified dementia type (CMS/HCC) documented in this encounter Additional Health Concerns Assessment Noted Time PHQ-9 Depression Total Score: 15 023 1:49 PM EDT documented as of this encounter Care Teams Poleyard Supervisor Relationship Specialty Start Date End Date Hue Meza MD [address] [place] [address] [phone] PCP - General Internal Medicine 12/22/22 documented as of this encounter
--- OUTSIDE RECORDS SUMMARY | 2024-04-22 11:17 | XMS_ITS | Clinical Summary ---
Author Organization [employer] Address [address] [facility] [address] [place] [address] Care Team Providers Care Director Of Accounts Payable Name Role Phone Hue Meza MD Primary Care Pro vider Allergies Active Allergy Reactions Criticality Noted Date Comments Losartan Cough 10/17/2023 Medications methIMAzole (Tapazole) 10 MG tablet Take 1 tablet by mouth 3 times daily. 10/26/19 23 Active Fluticasone-Sourav meterol 500-50 MCG/ACT aerosol powder Take 1 Inhalation by mouth 2 times daily. 06/06/19 23 Active Incruse Ellipta 62.5 MCG/ACT aerosol powder Take 1 Inhalation by mouth Once daily. 06/06/19 23 Active donepezil (Aricept) 10 MG tabletIndicatio ns:Dementia without behavioral disturbance, psychotic disturbance, mood disturbance, or anxiety, unspecified dementia severity, unspecified dementia type (CMS/HCC) TAKE 1 TABLET BY MOUTH AT BEDTIME 28 tablet 3 12/29/19 23 Active Ventolin HFA 108 (90 Base) MCG/ACT inhaler INHALE 2 PUFFS BY MOUTH EVERY 4 TO 6 HOURS NEEDED 18 g 2 01/10/20 23 Active Blood Pressure Monitor kitIndications: Annual physical exam 1 kit in the morning. 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 08/01/19 24 Active alendronate (Fosamax) 70 MG tablet Take 1 tablet (70 mg) by mouth every 7 (seven) days. Take in the morning with a full glass of water, on an empty stomach, and do not take anything else by mouth or lie down for the next 30 min. 4 tablet 11 08/16/19 24 025 Active celecoxib (CeleBREX) 200 MG capsule Take 1 capsule (200 mg) by mouth if needed in the morning and at bedtime for mild pain. Please put outside box 60 capsule 08/16/19 24 Active Additional Information Patient not taking.Reported on 02/05/2024 glucose blood (FreeStyle Precision Feroz Test) test stripIndication s:Type 2 diabetes mellitus with other specified complication, with long-term current use of insulin ([facility]) Test blood sugar q 8 hours 100 each 12 10/16/19 24 Active Continuous Glucose Flat Polisher (FreeStyle Wilmar 3 [place]) device 1 each Once per day. 1 each 10/22/19 24 Active Calcium Carbonate-Vit D-Min (Calcium-Vitami n D-Minerals) 600-800 MG-UNIT chewable tablet Chew 1 tablet with breakfast and with evening meal. 180 tablet 3 10/29/19 24 Active FLUoxetine (PROzac) 10 MG capsule TAKE 1 CAPSULE BY MOUTH EVERY MORNING 90 capsule 1 11/22/19 24 Active furosemide (Lasix) 20 MG tabletIndicatio ns:Chronic diastolic (congestive) heart failure (CMS/HCC) TAKE 1 TABLET BY MOUTH EVERY MORNING 90 tablet 1 11/22/19 24 Active pyridoxine (Vitamin B-6) 50 MG tablet TAKE 1 TABLET BY MOUTH EVERY MORNING 90 tablet 1 11/22/19 24 Active gabapentin (Neurontin) 300 MG capsuleIndicati ons:Neuropathy TAKE 1 CAPSULE BY MOUTH AT BEDTIME 30 capsule 5 11/30/19 24 Active pantoprazole (ProtoNix) 40 MG EC tablet TAKE 1 TABLET BY MOUTH EVERY MORNING 30 MINUTES BEFORE BREAKFAST 10/29/19 24 Active SITagliptin (Januvia) 100 MG tabletIndicatio ns:Type 2 diabetes mellitus with diabetic polyneuropathy, with long-term current use of insulin ([facility]) Take 1 tablet (100 mg) by mouth Once per day. 90 tablet 3 12/24/19 24 025 Active Aspirin Low Dose 81 MG EC tabletIndicatio ns:Atherosclero sis of coronary artery of [place] heart, unspecified vessel or lesion type, unspecified whether angina present TAKE 1 TABLET BY MOUTH EVERY MORNING 90 tablet 1 01/02/20 24 Active atorvastatin (Lipitor) 40 MG tablet TAKE 1 TABLET BY MOUTH EVERY MORNING 90 tablet 1 01/02/20 24 Active amLODIPine (Norvasc) 5 MG tablet TAKE 1 TABLET BY MOUTH EVERY EVENING 90 tablet 01/29/20 24 Active lidocaine (Lidoderm) 5 % patchIndication s:Closed fracture dislocation of lumbar spine, sequela Apply 1 patch topically Once per day. Remove & discard patch within 12 hours or as directed by MD. 30 patch 2 02/05/20 24 Active Diclofenac Sodium (Voltaren) 1 % gel Apply 2 g topically if needed in the morning and at bedtime (muscle pain). 100 g 3 02/05/20 24 Active cyanocobalamin (Vitamin B-12) 500 MCG tablet Take 1 tablet (500 mcg) by mouth 3 (three) times a week. 90 tablet 02/11/20 24 Active insulin glargine (Lantus SoloStar) 100 UNIT/ML penIndications: Type 2 diabetes mellitus without complication, with long-term current use of insulin ([facility]) Inject 20 Units under the skin at bedtime. 15 mL 5 02/11/20 24 025 Active famotidine (Pepcid) 20 MG tablet TAKE 1 TABLET BY MOUTH EVERY MORNING 90 tablet 02/21/20 24 Active Continuous Glucose Sensor (FreeStyle Wilmar 3 Sensor) miscIndications :Type 2 diabetes mellitus with diabetic polyneuropathy, with long-term current use of insulin (CMS/HCC) USE DIRECTED TO TEST BLOOD SUGAR CHANGE EVERY 14 DAYS 2 each 3 02/25/20 24 Active TRUEplus Lancets 33G misc TEST BLOOD SUGAR THREE TIMES DAILY 100 each 11 02/27/20 24 Active Easy Touch Pen Harrison 31G X 8 MM misc USE ONCE DAILY WITH LANTUS 100 each 11 02/27/20 24 Active melatonin 5 MG tablet TAKE 1 TABLET BY MOUTH AT BEDTIME NEEDED FOR SLEEP 30 tablet 2 03/21/19 25 Active carvedilol (Coreg) 3.125 MG tabletIndicatio ns:Essential hypertension TAKE 1 TABLET BY MOUTH TWICE DAILY IN THE MORNING AND IN THE EVENING WITH FOOD 60 tablet 3 04/16/19 25 Active carvedilol (Coreg) 3.125 MG tabletIndicatio ns:Essential hypertension TAKE 1 TABLET BY MOUTH TWICE DAILY IN THE MORNING AND IN THE EVENING WITH FOOD 60 tablet 3 11/30/19 24 025 Discontinued Active Problems Problem Noted Date Diagnosed Date Chronic diarrhea 08/17/2023 Abdominal pain 08/17/2023 Abnormal EKG 08/17/2023 Elevated alkaline phosphatase level 05/22/2023 Rheumatoid arthritis 03/04/2023 Lumbar vertebral fracture 03/04/2023 Health care maintenance 03/04/2023 Graves disease 12/22/2022 Overview (12/22/2022): Endo appt 12/08/22: Thyrotropin receptor and TSI ab positive indicate Grave's Disease. Noted during hospital admission. Discharged on methimazole 10 mg BID. Thyroid labs still abnormal and pt experiencing tremors, weight loss, low appetite Increase methimazole 10 mg to 3 times a day, check labs in 6 weeks. 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 Reports she was not contacted yet for f/u by TB clinic [facility] Assessment & Plan (12/21/2022 11:17 AM EDT): Provider called [facility] TB during visit requesting status of appt. No answer Also gave family phone number to call [facility] TB directly RTC if cough worsens F/u PRN Mixed stress and urge urinary incontinence 11/16 Difficulty with speech 04/03/2018 Essential hypertension 04/03/2018 Overview (11/05/2023): Pharmacotherapy: Updated 11/05/23 - Amlodipine 5mg daily - Carvedilol 3.125mg BID History: Updated 11/05/23 S/P CABG, CHF, followed by cardiology. Losartan in past, stopped due to cough? And switched to amlodipine. At home BP is WNL less than 140/90. Assessment & Plan (11/05/2023 12:27 PM EDT): Assessment: - BP is at goal of less than 140/90 per JNC8 guidelines Plan/ Recommendations: - Continue with current therapy and monitoring Monitoring: Potassium (mmol/L) Date Value 07/31/2023 4.0 03/20/2023 4.1 BP Readings from Last 2 Encounters: 10/16/23 137/76 08/16/23 (!) 144/54 Assessment & Plan (12/21/2022 11:13 AM EDT): BP WNL today 141/72 Refill Carvedilol for medbox program F/u PRN Memory impairment 04/03/2018 Chronic diastolic heart failure 12/26/2017 Type 2 diabetes mellitus 12/22/2014 Overview (11/05/2023): Pharmacotherapy: Updated 10/29/23 - Lantus Solostar 15 units at bedtime - Januvia 50mg daily History: Updated 10/29/23 New CDTM patient 10/2023. Historically well controlled but jumped up to 7.8% in September 2023. Has other medical conditions that may affect A1c. Patient's at home meter was too old to download data. Interested in CGM, completed PA and approved Nov 09. Metformin in past 2019. Stopped due to suspected secondary lactic acidosis during hospital course? BG range between 80-150 mg/dl between 11/04 and 10/21. - On ASA: Y - On Statin: Y, Atorvastatin 40mg daily - Last Eye Exam: Nov 2022 - Last Dental Exam: N, referral sent to [facility] Dental 07/2023 Assessment & Plan (11/05/2023 12:20 PM EDT): Assessment: - NOT at goal of A1c less than 7% or fasting BG between 70-130 mg/dL per ADA guidelines. Plan/ Recommendations: - START using freestyle wilmar 3 today; demonstrated and applied during today's visit - RETURN in 1 month to monitor progress and adjust therapy as needed based on CGM readings Monitoring: Hemoglobin A1c (%) Date Value 03/20/2023 6.6 (H) Hemoglobin A1C (%) Date Value 10/16/2023 7.8 (A) 03/02/2023 6.9 (A) No results found for: LDLCHOL , HDLCHOL No results found for: B12 Assessment & Plan (10/29/2023 1:32 PM EDT): Assessment: - NOT at goal of A1c less than 7% or fasting BG between 70-130 mg/dL per ADA guidelines. Plan/ Recommendations: - Freestyle wilmar 3 prescribed, prescriber will complete PA; teaching scheduled for 11/04 - Continue with current therapy - Eduction provided on A1c and pre and post prandial glucose Monitoring: Hemoglobin A1c (%) Date Value 03/20/2023 6.6 (H) Hemoglobin A1C (%) Date Value 10/16/2023 7.8 (A) 03/02/2023 6.9 (A) No results found for: LDLCHOL , HDLCHOL No results found for: B12 Moderate chronic obstructive pulmonary disease 0 10/22/2014 Overview (12/05/2022): Cough is worsening Unknown next pulm appt Treating with Advair, Incruse Ellipta and SANTOS PRN per med list, unsure if it is accurate Assessment & Plan (12/21/2022 11:17 AM EDT): Rapid COVID, Flu negative Upcoming med rec 12/11/22 Encouraged pt to call for Pulm f/u Continue inhalers as prescribed 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 Reports she was not contacted yet for f/u by TB clinic [facility] Provider called [facility] TB during visit requesting status of appt. No answer Also gave family phone number to call [facility] TB directly RTC if cough worsens F/u PRN Assessment & Plan (11/02/2022 6:31 PM EDT): Wheezing noted exam Recommended SANTOS use PRN F/u PRN Obstructive sleep apnea syndrome 10/13/2014 Gastroparesis 12/10/2013 Osteopenia 09/24/2012 Hyperlipidemia 06/27/2012 Atherosclerosis of coronary artery of [place] heart with other form of angina pectoris, unspecified vessel or lesion type 06/18/2012 Assessment & Plan (12/21/2022 11:13 AM EDT): Refill aspirin for medbox program F/u PRN Diabetic polyneuropathy 06/18/2012 Resolved Problems Problem Noted Date Diagnosed Date Resolved Date Chronic cough 08/17/2023 10/17/2023 Encounters Date Type Department Care Team Description 04/16/2024 Refill [facility] [address] [place], [place] [id number] Hue Meza MD Essential hypertension 03/25/2024 Orders Only GENERIC EXTERNAL DATA DEPARTMENT Provider, Generic External Data 03/21/2024 Refill [facility] [address] [place] [address] Hue Meza MD 02/29/2024 Telephone [facility] [address] [place] [address] Hue Meza MD 02/27/2024 Refill [facility] [address] [place] [address] Hue Meza MD 02/23/2024 Refill [facility] [address] [place] [address] Racheal Mcclain, BessyD Type 2 diabetes mellitus with diabetic polyneuropathy, with long-term current use of insulin ([facility]) 02/21/2024 Refill [facility] [address] [place] [address] Hue Meza MD 02/11/2024 Orders Only [facility] [address] [place] [address] Hue Meza MD Obstructive sleep apnea syndrome (Primary Dx); Eosinophilia, unspecified type; Leukocytosis, unspecified type; Anemia, unspecified type 02/11/2024 Orders Only [facility] [address] [place] [address] Hue Meza MD Anemia, unspecified type (Primary Dx); Leukocytosis, unspecified type; Type 2 diabetes mellitus without complication, with long-term current use of insulin (CMS/HCC) 02/11/2024 Orders Only [facility] [address] [place] [address] Hue Meza MD Leukocytosis, unspecified type (Primary Dx) 02/06/2024 Telephone [facility] [address] [place] [address] Lorin Herrera RNhome energy inspector 02/05/2024 11:15 AM EST Office Visit [facility] [address] [place] [address] Hue Meza MD Essential hypertension (Primary Dx); Closed fracture dislocation of lumbar spine, sequela; Type 2 diabetes mellitus with other specified complication, with long-term current use of insulin (CMS/HCC); Health care maintenance; Rheumatoid arthritis, involving unspecified site, unspecified whether rheumatoid factor present (CMS/HCC) 02/05/2024 Telephone [facility] [address] [place] [address] Hue Meza MD 02/05/2024 Orders Only GENERIC EXTERNAL DATA DEPARTMENT Provider, Generic External Data 02/05/2024 Refill [facility] [address] [place] [address] Hue Meza MD Type 2 diabetes mellitus with diabetic polyneuropathy, with long-term current use of insulin (CMS/HCC) (Primary Dx) 02/05/2024 Travel 01/31/2024 Orders Only [facility] [address] [place] [address] Hue Meza MD Biliary calculus of other site without obstruction (Primary Dx) 01/29/2024 Refill [facility] [address] [place] [address] Hue Meza MD 01/29/2024 Refill [facility] [address] [place] [address] Hue Meza MD from Last 3 Months Immunizations Name Administration Dates Next Due Hep B, adult 03/15/2017,02/07/2017 Influenza injectable quadriv alent IIV4 with preservative 02/07/2017 Influenza injectable quadriv alent preservative free 03/02/2023 Influenza, High Dose Seasona l, Preservative Free 11/30/2023,11/28/2018 Influenza, IIV3, injectable 11/28/2018, 7,04/13/2014 Influenza, Split (incl. cecil fied surface antigen) 11/20/2012 Pfizer Covid-19 Vaccine 12+ 12/24/2023, Pneumococcal Conjugate PCV 13 08/14/2014 Pneumococcal Conjugate PCV 20 01/29/2023 Pneumococcal Polysaccharide PPSV23 11/20/2012 RSV Bivalent 12/24/2023 Tdap 01/29/2023,08/20/2012 Zoster, Recombinant 12/24/2023 Zoster, live 06/09/2013 Family History Medical History Relation Name Comments DM2, HTN Mother Pulmonary fibrosis Mother Relation Name Status Comments Mother Social History Tobacco Use Types Packs/Day Years Used Date Smoking Tobacco: Never Smokeless Tobacco: Never Tobacco Cessation:Counseling Given: Not Answered Alcohol Use Standard Drinks/Week Comments Never 0 (1 standard drink = 0.6 oz pur e alcohol) Depression Answer Date Recorded Patient Health Questionnaire-9 Score 12 10/16/2023 Patient Health Questionnaire-9 Score 12 10/16/2023 Last PHQ-9: Questionnaire Data Not on file 0 10/16/2023 Housing Stability Answer Date Recorded What is your housing situation today? I have arronjose l bailey 11/30/[address] you [...] Access Q2 Not on file 11/30/2023 Comments No Sex and Gender Information Value Date Recorded Sex Assigned at Female 01/16/2022 10:22 AM EDT Legal Sex Female 10:22 AM EDT Gender Identity Female 01/16/2022 10:22 AM EDT Sexual Orientation Straight 01/16/2022 10 :22 AM EDT Last Filed Vital Signs Vital Sign Reading Time Taken Comments Blood Pressure 138/74 02/05/2024 11:08 AM EST Pulse 94 02/05/2024 11:08 AM EST Temperature 36.3 ??C (97.4 ??F) 02/05/2024 11:[address] Respiratory Rate 24 02/05/2024 11:08 AM EST Oxygen Saturation 94% 02/05/2024 11:08 AM EST Inhaled Oxygen Concentration - - Weight 57.8 kg (127 lb 6.4 oz) 11/30/2023 11:13 AM EDT Height 149.9 cm (4' 11 ) 02/05/2024 11:08 AM EST Body Mass Index 25.73 11/30/2023 11:13 AM EDT Plan of Treatment Upcoming Encounters Date Type Department Care Team (Late st Contact Info) Description 05/16/2024 11:00 AM EST Medication Management [facility] [address] [place] [address] Fely Bowens, PharmD [address] [place] [address] Health Maintenance Due Date Last Done Comments Diabetes: Foot Exam 12/17/1955 Eye Exam 12/17/1955 Alcohol/Substance Use Screening 1957 Hepatitis B Vaccines (3 of 3 - 19+ 3-dose series) 08/07/2017 03/15/2017, 02/07/2017 Zoster Vaccines (3 of 3) 02/18/2024 12/24/2023, 05/18 Depression Monitoring (PHQ-9) 04/17/2024 10/16/2023, 10/16/2023 Diabetes: Hemoglobin A1C 05/07/2024 024, 10/16/2023, 03/20/2023, Additional history exists Depression Screening 10/15/2024 10/16/2023, 10/16/19 24 SDOH Screening 11/29/2024 11/30/2023 Tobacco Screening 12/23/2024 12/24/2023 Diabetes: Urine Protein Screening 02/04/2025 02/05/2024, 12/22/2021, 09/30/2020 Lipid Panel 02/04/2025 02/05/2024, 03/20/2023 DTaP/Tdap/Td Vaccines (3 - Td or Tdap) 01/29/2033 01/29/2023, 08/20/2012 Pneumococcal Vaccine: 50+ Years Completed 01/29/2023, 08/14/2014, 11/20/2012 Hepatitis C Screening Completed 03/20/2023 Influenza Vaccine Completed 11/30/2023, , 11/28/2018, Additional history exists COVID-19 Vaccine Completed 12/24/2023, , 01/31/2021, Additional history exists RSV Patients and Patients Aged 60 years or older Completed 12/24/2023 HIB Vaccines Aged Out No longer eligi ble based on patient's age to complete this topic HPV Vaccines Aged Out No longer eligi ble based on patient's age to complete this topic Hepatitis A Vaccines Aged Out No long er eligible based on patient's age to complete this topic IPV Vaccines Aged Out No longer eligi ble based on patient's age to complete this topic Meningococcal Vaccine Aged Out No michelle jaime eligible based on patient's age to complete this topic RSV under 20 months Aged Out No longe r eligible based on patient's age to complete this topic Rotavirus Vaccines Aged Out No longer eligible based on patient's age to complete this topic Goals Goal Patient Goal Type Associated Problems Recent Progress Patient-Stated? Author Blood Pressure < 140/90 Blood Pressure 138/74(2023 11:08 AM EST) No Sampognaro, Boby Hemoglobin A1c < 8 Result Component 7.7( 10:33 AM EST) No Boby Anand Procedures Procedure Name Priority Date/Time Associated Diagnosis Comments NM HEPATOBILIARY W PHARM Routine 04/04/2024 10:26 AM EST C-REACTIVE PROTEIN Routine 03/25/2024 10 :58 AM EST COMPREHENSIVE METABOLIC PANEL Routine 03/25/2024 10:58 AM EST SED RATE BY MODIFIED WESTERGREN Routine 03/25/2024 10:58 AM EST CBC WITH AUTO DIFFERENTIAL Routine 03/25/2024 10:58 AM EST C-REACTIVE PROTEIN Routine 02/05/2024 10 :33 AM EST SED RATE BY MODIFIED WESTERGREN Routine 02/05/2024 10:33 AM EST CBC WITH AUTO DIFFERENTIAL Routine 02/05/2024 10:33 AM EST STRONGYLOIDES AB IGG Routine 02/05/2024 10:33 AM EST Type 2 diabetes mellitus with other specified complication, with long-term current use of insulin (CMS/HCC) Eosinophilia, unspecified type GGT Routine 02/05/2024 10:33 AM EST Elevated alkaline phosphatase level CBC Routine 02/05/2024 10:33 AM EST Type 2 diabetes mellitus with other specified complication, with long-term current use of insulin (CMS/HCC) FERRITIN Routine 02/05/2024 10:33 AM EST Type 2 diabetes mellitus with other specified complication, with long-term current use of insulin (CMS/HCC) IRON AND TOTAL IRON BINDING CAPACITY Routine 02/05/2024 10:33 AM EST Type 2 diabetes mellitus with other specified complication, with long-term current use of insulin (CMS/HCC) VITAMIN B12/FOLATE, SERUM PANEL Routine 02/05/2024 10:33 AM EST Type 2 diabetes mellitus with other specified complication, with long-term current use of insulin (CMS/HCC) LIPID PANEL, STANDARD Routine 02/05/2024 10:33 AM EST Type 2 diabetes mellitus with other specified complication, with long-term current use of insulin (CMS/HCC) HEMOGLOBIN A1C Routine 02/05/2024 10:33 AM EST Type 2 diabetes mellitus with other specified complication, with long-term current use of insulin (CMS/HCC) COMPREHENSIVE METABOLIC PANEL Routine 02/05/2024 10:33 AM EST Type 2 diabetes mellitus with other specified complication, with long-term current use of insulin (CMS/HCC) ALBUMIN, RANDOM URINE W/CREATININE Routine 02/05/2024 10:33 AM EST Type 2 diabetes mellitus with other specified complication, with long-term current use of insulin (CMS/HCC) HEPATITIS C AB W/REFL TO HCV RNA, QN, PCR Routine 03/20/2023 1:23 PM EST Annual physical exam from Last 3 Months or Most Recently Relevant to Health Maintenance Results * NM Hepatobiliary w Pharm (04/04/2024 10:26 AM EST) Anatomical Region Laterality Modality Body Nuclear Medicine 04/04/2024 10:2 6 AM EST Narrative 04/04/2024 2:19 PM EST ? [facility] ?[address] ?[place] [address] ?Nuclear Medicine Report ? Signed ? Patient: Leigh Ann Russell,Hue Rodriguez ?MR#: ?? [id number] ? : 1945 ?Acct:[id number] ? Age/Sex: 78 / F ?ADM Date: 01/17/25 ? Loc: HO.NUCMED ? Attending Dr: Dano Canada MD ? Ordering Physician: Dano Canada MD ?? Date of Service: 04/04/24 ?? Procedure(s): NM hepatobiliary w pharm ?? Accession Number(s): [id number] ? cc: Dano Canada MD; Hue Meza MD ? EXAMINATION: ?? NM BILIARY TRACT ? CLINICAL INFORMATION: ?? Right upper quadrant pain. Gallstones ? COMPARISON: ?? Abdominal ultrasound 12/12/2023. ? TECHNIQUE: ?? Following intravenous administration of 5 mCi of technetium 99m ?? mebrofenin, imaging over the right upper quadrant was obtained up to 60 ?? minutes. At 60 minutes 1.2 mcg of CCK was administered 30 minutes and ?? imaging obtained up to 30 minutes. ? FINDINGS: ?? There is normal hepatic uptake with no focal defects seen. CBD and ?? small bowel is visualized at the same time by 10 minutes. Gallbladder ?? is visualized by 30 minutes. ? Post-CCK the gallbladder ejection fraction at 10 minutes is 3%, ? at 20 minutes is 10% and ? and at 30 minutes ??is 11%. ? NM/NM hepatobiliary w pharm ?? IMPRESSION: ?? Dyskinetic gallbladder with the gallbladder ejection fraction of 11% at ?? 30 minutes. ? Normal hepatic uptake. ? Patent cystic duct and patent CBD. ? Electronically signed by: ??Kojo Dewey MD ??04/04/2024 02:14 PM EST RP ? Dictated By: ?Kojo Dewey MD ? Signed By: ?<Electronically signed by Kojo Dewey MD in OV> ?04/04/24 1414 ? DD/ 1026 ? TD/TT: 04/04/24 1240 ? Bulb Grower: MSM ? Procedure Note Dorys, Image - 04/04/[address] [address] Nuclear Medicine Report Signed Patient: Hue Murphy DMR#: [id number] : 6Acct:[id number] Age/Sex: 78 / FADM Date: 04/04/24 Loc: [facility] Attending Dr: Dano Canada MD Ordering Physician: Dano Canada MD Date of Service: 04/04/24 Procedure(s): NM hepatobiliary w pharm Accession Number(s): [id number] cc: Dano Canada MD; Hue Meza MD EXAMINATION: FL BILIARY TRACT CLINICAL INFORMATION: Right upper quadrant pain. Gallstones COMPARISON: Abdominal ultrasound 12/12/2023. TECHNIQUE: Following intravenous administration of 5 mCi of technetium 99m mebrofenin, imaging over the right upper quadrant was obtained up to 60 minutes. At 60 minutes 1.2 mcg of CCK was administered 30 minutes and imaging obtained up to 30 minutes. FINDINGS: There is normal hepatic uptake with no focal defects seen. CBD and small bowel is visualized at the same time by 10 minutes. Gallbladder is visualized by 30 minutes. Post-CCK the gallbladder ejection fraction at 10 minutes is 3%, at 20 minutes is 10% and and at 30 minutes is 11%. NM/NM hepatobiliary w pharm IMPRESSION: Dyskinetic gallbladder with the gallbladder ejection fraction of 11% at 30 minutes. Normal hepatic uptake. Patent cystic duct and patent CBD. Electronically signed by: Kojo Dewey MD 04/04/2024 02:14 PM EST Dictated By: Kojo Dewey MD Signed By: <Electronically signed by Kojo Dewey MD in OV> 04/04/24 1414 DD/ 1026 TD/TT: 04/04/24 1240 Bulb Grower: SAEED [facility] External [facility] Edited Result - Final * (ABNORMAL) CBC auto differential (03/25/2024 10:58 AM EST) Only the most recent of2 resultswithin the time period is included. White Blood Count 11.3(H) 4.8 - 10.8 X10*3/uL [facility] Red Blood Count 3.86(L) 4.20 - 5.50 X10*6/uL [facility] Hemoglobin 11.2(L) 12.0 - 16.0 g/dl [facility] Hematocrit 35.1(L) 37.0 - 47.0 % [facility] Mean Corpuscular Volume 90.9 80.0 - 98.0 fL [facility] Mean Corpuscular Hemoglobin 29.0 27.0 - 33.0 pg [facility] Mean Corpuscular HGB Conc 31.9 31.0 - 35.0 g/dl [facility] Red Cell Distribution Width 13.5 11.0 - 16.0 % [facility] Platelet Count 253 160 - 400 X10*3/uL [facility] Mean Platelet Volume 11.1 9.4 - 12.3 fL [facility] Neutrophils Percent Auto 52.1 45 - 73 % [facility] Imm Gran Pct Auto 0.4 0.0 - 0.4 % [facility] Lymphocytes Percent Auto 26.6 20 - 40 % [facility] Monocytes Percent Auto 12.6(H) 2 - 11 % [facility] Eosinophils Percent Auto 7.6(H) 0 - 4 % [facility] Basophils Percent Auto 0.7 0 - 2 % [facility] NRBC Pct Auto 0.0 0.0 - 0.2 /100WBC [facility] Neutrophils Absolute Auto 5.9 2.0 - 8.3 x10*3/uL [facility] Imm Gran Abs Auto 0.04(H) 0.00 - 0.03 X10*3/uL [facility] Lymphocytes Absolute Auto 3.0 1.2 - 4.9 X10*3/uL [facility] Monocytes Absolute Auto 1.4(H) 0.1 - 1.2 X10*3/uL [facility] Eosinophils Absolute Auto 0.9(H) 0.0 - 0.4 X10*3/uL [facility] Basophils Absolute Auto 0.1 0.0 - 0.2 X10*3/uL [facility] NRBC Abs Auto 0.000 0.0 - 0.012 X10*3/uL [facility] 03/25/2024 10:5 8 AM EST 03/25/2024 10:58 AM EST us Generic External Data Provider LAB BLOOD ORDERAB LES Final Result Performing Organization Address [facility] de Phone Number [facility] [address] [place] [address] [phone] * (ABNORMAL) Sed Rate by Modified Daniloergren (03/25/2024 10:58 AM EST) Only the most recent of2 resultswithin the time period is included. Erythrocyte Sedimentation Rate 39(H) 0 - 20 MM/HR [facility] Comment:Patients with polycy themia and many hemoglobin abnormalitiesmay have depressed sed rates whereas patients with anemiamay have elevated sed rates. 03/25/2024 10:5 8 AM EST 03/25/2024 10:58 AM EST Generic External Data Provider LAB BLOOD ORDERAB LES Final Result Performing Organization Address [facility] Phone Number [facility] [address] [place] [phone] * (ABNORMAL) C-reactive Protein (03/25/2024 10:58 AM EST) Only the most recent of2 resultswithin the time period is included. Pathologist [facility] C Reactive Protein 3.49(H) < or = 0.50 mg/dL [facility] 03/25/2024 10:5 8 AM EST 03/25/2024 10:58 AM EST Generic External Data Provider LAB BLOOD ORDERAB LES Final Result Performing Organization Address [facility] de Phone Number [facility] [address] [place] [address] [phone] * (ABNORMAL) Comprehensive Metabolic Panel (03/25/2024 10:58 AM EST) Only the most recent of2 resultswithin the time period is included. Sodium 142 135 - 145 mmol/L [facility] Potassium 3.6 3.3 - 5.1 mmol/L [facility] Chloride 110(H) 96 - 108 mmol/L [facility] Carbon Dioxide 26 22 - 29 mmol/L [facility] Anion Gap 10(L) 12 - 20 [facility] Urea Nitrogen (BUN) 20(H) 9 - 16 mg/dL [facility] Creatinine, Serum 1.15 0.5 - 1.4 mg/dL [facility] Estimated Glomerular Filt Rate 46 [facility] Comment:Chronic Kidney Disea se: Estimated GFR < 60 mL/min/1.88s6Hkfpty Kidney Disease: Estimated GFR < 15 mL/min/1.73m2 Glucose 169(H) 60 - 115 mg/dL [facility] Calcium 9.1 8.4 - 10.2 mg/dL [facility] Bilirubin, Total 0.5 0.0 - 1.0 mg/dL [facility] Aspartate Amino Transferase 30 5 - 31 U/L [facility] Alanine Aminotransferase 28 0 - 31 U/L [facility] Total Protein 8.1(H) 6.5 - 8.0 g/dL [facility] Albumin Level 4.1 3.5 - 5.0 g/dL [facility] Alkaline Phosphatase 92 39 - 117 U/L [facility] 03/25/2024 10:5 8 AM EST 03/25/2024 10:58 AM EST us Generic External Data Provider LAB BLOOD ORDERAB LES Final Result Performing Organization Address City/State/[facility] [[email or web address]] Co de Phone Number [facility] [address] [place] [phone] * (ABNORMAL) Vitamin B12 (Cobalamin) and Folate Panel, Serum (02/05/2024 10:33 AM EST) Vitamin B12 1,580(H) 200 - 900 pg/mL [facility] Comment:NORMAL 200-900 PG/ML INDETERMINATE 160-199 PG/ML DEFICIENT < 160 PG/ML Folate 12.0 > or = 4.0 ng/mL [facility] Comment:Reference Values:> o r = 4.0 ng/mL< 4.0 ng/mL suggests folate deficiency Methotrexate, aminopterin and folinic acid(leucovorin) are chemotherapeutic agents whose molecularstructures are similar to folate; therefore, the Architectfolate assay cannot be used for patients using these drugs. Blood 02/05/2024 10:3 3 AM EST 02/05/2024 1:08 PM EST us Hue Lopez MD LAB BLOOD ORDERAB LES Final Result Performing Organization Address City/[facility]/ZIP Co de Phone Number [facility] [address] [place] [phone] * Strongyloides Antibody (IgG) (02/05/2024 10:33 AM EST) Strongyloides Antibody IgG NEGATIVE [facility] Comment:REFERENCE RANGE: NEG ATIVEStrongyloides stercoralis is a parasiticNematode found in tropical and subtropicalregions. Because of low larval densities infeces, stool examination is a relativelyinsensitive diagnostic test; antibody detectionoffers increased sensitivity. Patients withlatent infections who are immunosuppressed orreceiving immunosuppressive therapy are at riskof life- threatening hyperinfection. Significantcrossreactivity may be observed in otherhelminth infections.THIS TEST WAS PERFORMED AT:[employer] [id number] [facility] [place] [place] [address]FHVVDTHUY TEMPLE MD,PHD,JOCELYN Blood Venous blood specimen / Unknown 02/05/2024 10:33 AM EST 02/05/2024 1:08 PM EST us Hue Lopez MD LAB BLOOD ORDERAB LES Final Result Performing Organization Address [facility]/ZIP Co de Phone Number [facility] [address] [place] [phone] * Albumin, Random Urine W/Creatinine (02/05/2024 10:33 AM EST) Creatinine, Urine 280.14 mg/dL [facility] Microalbumin Urine 28.0 mg/L [facility] Microalbum Creatinine Ratio Ur 9.9 <30 ug/mg cr [facility] Comment:Albumin/Creatinine R atio Reference Ranges: Normal: < 30 ug/mg creatinine Microalbuminuria: 30 - 300 ug/mg creatinineClinical Albuminuria: > 300 ug/mg creatinine Urine (Urine, Random) 02/05/2024 10:33 AM EST 02/05/2024 1:08 PM EST us Hue Lopez MD LAB URINE ORDERAB LES Final Result Performing Organization Address [facility] [[email or web address]] Co de Phone Number [facility] [address] [place] [phone] * Iron And Total Iron Binding Capacity (02/05/2024 10:33 AM EST) Pathologist [facility] Iron 43 30 - 160 mcg/dL [facility] Total Iron Binding Capacity 249 228 - 428 mcg/dL [facility] Percent Iron Saturation 17 15 - 50 % [facility] Unsaturated Iron Binding 206 ug/dL [facility] Blood Venous blood specimen / Unknown 02/05/2024 10:33 AM EST 02/05/2024 1:08 PM EST us Hue Lopez MD LAB BLOOD ORDERAB LES Final Result Performing Organization Address [facility] [[email or web address]] Co de Phone Number [facility] [address] [place] [phone] * (ABNORMAL) CBC (02/05/2024 10:33 AM EST) White Blood Count 11.6(H) 4.8 - 10.8 X10*3/uL [facility] Red Blood Count 4.07(L) 4.20 - 5.50 X10*6/uL [facility] Hemoglobin 11.6(L) 12.0 - 16.0 g/dl [facility] Hematocrit 36.6(L) 37.0 - 47.0 % [facility] Mean Corpuscular Volume 89.9 80.0 - 98.0 fL [facility] Mean Corpuscular Hemoglobin 28.5 27.0 - 33.0 pg [facility] Mean Corpuscular HGB Conc 31.7 31.0 - 35.0 g/dl [facility] Red Cell Distribution Width 12.9 11.0 - 16.0 % [facility] Platelet Count 296 160 - 400 X10*3/uL [facility] Mean Platelet Volume 11.4 9.4 - 12.3 fL [facility] NRBC Pct Auto 0.0 0.0 - 0.2 /100WBC [facility] NRBC Abs Auto 0.000 0.0 - 0.012 X10*3/uL [facility] Blood Venous blood specimen / Unknown 02/05/2024 10:33 AM EST 02/05/2024 1:08 PM EST Hue Lopze MD LAB BLOOD ORDERAB LES Final Result [facility] [address] [place] [phone] * (ABNORMAL) Hemoglobin A1c (02/05/2024 10:33 AM EST) Hemoglobin A1c 7.7(H) <6.0 % [facility] Comment:Hemoglobin A1C Refer ence Range Adults: 4.8 - 6.0 % Non diabetic: < 6.0 % Goal: < 7.0 %Additional Action Suggested: > 8.0 %Note: Hemoglobin A1c results are invalid for patients with abnormal amounts of HbF. Blood transfusions may impact the HbA1c concentration in the patient sample. Estimated Average Glucose 174 mg/dL [facility] Comment:eAG = Estimated ave rage glucose which is %A1C expressed asaverage glucose, using the formula of the U2K-JpuudouCnlthhc Glucose study (ADAG), Diabetes Care, Vol.31,#8,2007 Blood Venous blood specimen / Unknown 02/05/2024 10:33 AM EST 02/05/2024 1:08 PM EST us Hue Lopez MD LAB BLOOD ORDERAB LES Final Result Performing Organization Address [facility]/ZIP Co de Phone Number [facility] [address] [place] [phone] * (ABNORMAL) Gamma Glutamyl Transferase (GGT) (02/05/2024 10:33 AM EST) Gamma Glutamyl Transpeptidase 89(H) 7 - 33 U/L [facility] Blood Venous blood specimen / Unknown 02/05/2024 10:33 AM EST 02/05/2024 1:08 PM EST us Hue Lopez MD LAB BLOOD ORDERAB LES Final Result Performing Organization Address [facility] [[email or web address]] Co de Phone Number [facility] [address] [place] [phone] * Ferritin (02/05/2024 10:33 AM EST) Ferritin 78 10 - 250 ng/mL [facility] Blood Venous blood specimen / Unknown 02/05/2024 10:33 AM EST 02/05/2024 1:08 PM EST us Hue Lopez MD LAB BLOOD ORDERAB LES Final Result Performing Organization Address [facility]/ZIP Co de Phone Number [facility] [address] [place] [phone] * Lipid Panel, Standard (02/05/2024 10:33 AM EST) Triglycerides 60 <150 mg/dL [facility] Comment:Desirable Triglyceri de: less than 150 mg/dLBorderline High Triglyceride 150-199 mg/dLHigh Triglyceride: 200-499 mg/dLVery High Triglyceride: greater than or equal to 5OO mg/dL Cholesterol 164 <200 mg/dL [facility] Comment:Desirable Cholestero l: less than 200 mg/dLBorderline High Cholesterol: 200-239 mg/dLHigh Cholesterol: greater than 239 mg/dL LDL Cholesterol Calculated 82 <100 mg/dL [facility] Comment:Desirable LDL: less than 100 mg/dLNear Optimal/Above Optimal LDL: 110- 129 mg/dLBorderline High LDL: 130-159 mg/dLHigh LDL: 160-189 mg/dLVery High LDL: greater than or equal to 190 mg/dL HDL Cholesterol 70 >40 mg/dL [facility] Comment:Desirable HDL: great er than 40 mg/dL Note: This HDL assay may give artificially low results in patients with liver disease. Blood Venous blood specimen / Unknown 02/05/2024 10:33 AM EST 02/05/2024 1:08 PM EST us Hue Lopez MD LAB BLOOD ORDERAB LES Final Result Performing Organization Address [facility]/ZIP Co de Phone Number [facility] [address] [place] [phone] * Hepatitis C Antibody with Reflex to HCV, RNA, Quantitative, Real-Time PCR (03/20/2023 1:23 PM EST) Hepatitis C Antibody Nonreactive Nonreactive [facility] Comment:Antibodies to HCV no t detected; does not exclude early acuteHCV infection. Blood Venous blood specimen / Unknown 03/20/2023 1:23 PM EST 03/20/2023 1:23 PM EST us Hue Lopez MD LAB BLOOD ORDERAB LES Final Result Performing Organization Address [facility]/ZIP Co de Phone Number [facility] [address] [place] [phone] from Last 3 Months or Most Recently [place] [address] [facility] Care Teams Director Of Accounts Payable Relationship Specialty Start Date End Date Hue Meza MD [address] [place] [phone] PCP - General Internal Medicine 12/22/22
--- OUTSIDE RECORDS SUMMARY | 2024-04-22 11:17 | XMS_ITS | Encounter Summary ---
Author Organization [employer] Address [address] [place] [address] [place] [address] Care Team Providers Care Instructional Systems Design Consultant Name Role Phone Cecy Gonzalez Primary Care Provider +1- [phone] Cecy Gonzalez Primary Care Provider +1- [phone] Hue Meza MD Primary Care Pro vider Reason for Visit * Reason Onset Date Comments Med Refill 05/03/2022 Appointment Request 05/03/2022 Patient has been assigned to Cecy Gonzalez. Needs a TP appt with provider. Placed on a recall list for a TP appt. Encounter Details Date Type Department Care Team ([facility] st Contact Info) Description 05/03/2022 Refill [facility] [address] [place] [address] Cecy Gonzalez FNP [address] [place] [address] Dept [place] [address] Neuropathy (Primary Dx) Social History Tobacco Use Types Packs/Day Years [...] the past 12 months, has t he [employer], gas, oil or water company threatened to [...] * Telephone Encounter - Katherin Bonilla - 05/03/2022 10:06 AM EST Tc from [facility] requesting a med refill on Gabapentin 300 mg documented in this encounter Plan of Treatment Upcoming Encounters Date Type Department Care Team (Late st Contact Info) Description 05/16/2024 11:00 AM EST Medication Management [facility] [address] [place] [address] Fely Bowens, PharmD [address] [place] [address] documented as of this encounter Goals Goal Patient Goal Type Associated Problems Recent Progress Patient-Stated? Author Blood Pressure < 140/90 Blood Pressure 138/74(2023 11:08 AM EST) No Boby Anand Hemoglobin A1c < 8 Result Component 7.7(11/19/202 4 10:33 AM EST) No Boby Anand documented as of this encounter Visit Diagnoses Diagnosis Neuropathy- Primary Mononeuritis of unspecified site documented in this encounter Care Teams Instructional Systems Design Consultant Relationship Specialty Start Date End Date Cecy Gonzalez FNP PCP - General Family Medicine 03/24/22 08/21/22 Cecy Gonzalez FNP PCP - General Family Medicine 08/22/22 12/21/22 Hue Meza MD [address] [place] [phone] PCP - General Internal Medicine 12/22/22 documented as of this encounter
--- OUTSIDE RECORDS SUMMARY | 2024-04-22 11:17 | XMS_ITS | Encounter Summary ---
Author Organization [employer] [facility] Address [address] [place] [address] 7t [place] [address] Care Team Providers Care Aba Therapist Name Role Phone Cash Arevalo MD Primary Care Provider Cecy Stephen [facility] Primary Care Provider +1- [phone] eCcy Gonzalez [facility] Primary Care Provider +1- [phone] Hue Meza MD Primary Care Pro vider Encounter Details Date Type Department Care Team (Late st Contact Info) Description 03/23/2022 Telephone [facility] MED[facility]INE [address] [place] [address] [phone] Cash Arevalo MD Social History Tobacco Use Types Packs/Day Years [...] Description 05/16/2024 11:00 AM EST Medication Management [facility] [address] [place], [place] [phone] Fely Bowens, BessyD [address] [place] [address] documented as of this encounter Visit Diagnoses Not on filedocumented in this encounter Care Teams Aba Therapist Relationship Specialty Start Date End Date Cash Arevalo MD PCP - General Family Medicine 01/29/19 03/23/22 Cecy Gonzalez FNP PCP - General Family Medicine 03/24/22 08/21/22 Cecy Gonzalez FNP PCP - General Family Medicine 08/22/22 12/21/22 Hue Meza MD [address] [place] [phone] PCP - General Internal Medicine 12/22/22 documented as of this encounter
--- OUTSIDE RECORDS SUMMARY | 2024-04-22 11:17 | XMS_ITS | Encounter Summary ---
Author Organization [employer] [facility] Address [address] [place] [address] 7t [place] [address] Care Team Providers Care Manager Night Name Role Phone Cash Arevalo MD Primary Care Provider Cecy Stephen [employer] Primary Care Provider [phone]- [phone] Cecy Gonzalez [facility] Primary Care Provider +1- [phone] Hue eMza MD Primary Care Pro vider Reason for Visit * Reason Onset Date Comments transfer pt appt 03/23/2022 Encounter Details Date Type Department Care Team (Late st Contact Info) Description 03/23/2022 Telephone [facility] MEDICINE [address] [place] [address] Cash Arevalo MD transfer pt appt Social History Tobacco Use Types Packs/Day Years Used Date Smoking Tobacco: Never Assessed Comments Unknown Sex and Gender Information Value Date Recorded Sex Assigned at Female 01/16/2022 10:22 AM EDT Legal Sex Female 10:22 AM EDT Gender Identity Female 01/16/2022 10:22 AM EDT Sexual Orientation Straight 01/16/2022 10 :22 AM EDT documented as of this encounter Miscellaneous Notes * Telephone Encounter - Blanca Vora - 03/23/2022 9:24 AM EST Tc from pt grandchild requesting a transfer pt appt . documented in this encounter Plan of Treatment Upcoming Encounters Date Type Department Care Team (Late st Contact Info) Description 05/16/2024 11:00 AM EST Medication Management [facility] MEDICINE [address] [place] [address] Fely Bowens, Jamie [address] [place] [address] documented as of this encounter Visit Diagnoses Not on filedocumented in this encounter Care Teams Manager Night Relationship Specialty Start Date End Date Cash Arevalo MD PCP - General Family Medicine 01/29/19 03/23/22 Cecy Gonzalez FNP PCP - General Family Medicine 03/24/22 08/21/22 Cecy Gonzalez FNP PCP - General Family Medicine 08/22/22 12/21/22 Hue Meza MD [address] [place] [address] PCP - General Internal Medicine 12/22/22 documented as of this encounter
--- OUTSIDE RECORDS SUMMARY | 2024-04-22 11:17 | XMS_ITS | Encounter Summary ---
Author Organization [employer] Address [address] [facility] 7t [place] [address] Care Team Providers Care Composite Bond Technician Name Role Phone Hue Meza MD Primary Care Pro vider Reason for Visit * Reason Comments Med Refill Encounter Details Date Type Department Care Team (Late st Contact Info) Description 01/24/2023 Refill [facility] [address] [place] [address] Hue Meza MD [address] [place], [place] [phone] Closed fracture dislocation of lumbar spine, sequela Social History Tobacco Use Types Packs/Day Years Used Date Smoking Tobacco: Unknown Depression Answer Date Recorded Patient Health Questionnaire-9 Score 15 12/05/2022 Housing Stability Answer Date Recorded What is your housing situation today? I have arron lynn 01/03/[address] you li ve. Do you have problems with any of the following? None of the above 01/03/2023 Food Insecurity Answer Date Recorded Within the past 12 months, y ou worried that your food would run out before you got money to buy more: Sometimes True 2022 Within the past 12 months,th e food you bought just didn't last and you didn't have enough money to get more: Sometimes True 01/03/2023 Transportation Answer Date Recorded In the past [...] shut off services in your home? No 01/03/2023 Depression Answer Date Recorded Patient Health Questionnaire-2 [...] Description 05/16/2024 11:00 AM EST Medication Management [facility] [address] [place] [address] Fely Bowens, PharmD [address] [place] [address] documented as of this encounter Goals Goal Patient Goal Type Associated Problems Recent Progress Patient-Stated? Author Blood Pressure < 140/90 Blood Pressure 138/74(2023 11:08 AM EST) No Boby Anand Hemoglobin A1c < 8 Result Component 7.7( 10:33 AM EST) No Boby Anand documented as of this encounter Visit Diagnoses Diagnosis Closed fracture dislocation of lumbar spine, sequela documented in this encounter Additional Health Concerns Assessment Noted Time PHQ-9 Depression Total Score: 15 023 1:49 PM EDT documented as of this encounter Care Teams Composite Bond Technician Relationship Specialty Start Date End Date Hue Meza MD [address] [place] [address] PCP - General Internal Medicine 12/22/22 documented as of this encounter
--- OUTSIDE RECORDS SUMMARY | 2024-04-22 11:17 | XMS_ITS | Encounter Summary ---
Author Organization [employer] Address [address] [place] [address] 7 [place] [address] Care Team Providers Care Policy Writer Sales Name Role Phone Cecy Gonzalez Primary Care Provider +1- [phone] Hue Meza MD Primary Care Pro vider Reason for Visit * Reason Onset Date Comments Hospital Follow-up 10/26/2022 Encounter Details Date Type Department Care Team (Late st Contact Info) Description 10/26/2022 Telephone [facility] [address] [place] [address] Cecy Gonzalez FNP [address] [place] [address] Dept [place] [address] Hospital Follow-up Social History Tobacco Use Types Packs/Day Years Used Date Smoking Tobacco: Never Assessed Comments Unknown Sex and Gender Information Value Date Recorded Sex Assigned at Female 01/16/2022 10:22 AM EDT Legal Sex Female 10:22 AM EDT Gender Identity Female 01/16/2022 10:22 AM EDT Sexual Orientation Straight 01/16/2022 10 :22 AM EDT documented as of this encounter Miscellaneous Notes * Telephone Encounter - Christina Van - 10/26/2022 12:16 PM EDT Tc from [facility] at [facility] Tc from pt requesting a [facility] appt. Pt was admitted at [facility] on 10/22/22 and discharged on 10/25/22. Pt wasdiagnosed with small fracture on the spine Please call pts granddaughter Irma at [phone] documented in this encounter Plan of Treatment Upcoming Encounters Date Type Department Care Team (Late st Contact Info) Description 05/16/2024 11:00 AM EST Medication Management [facility] [address] [place] [address] Fely Bowens, BessyD [address] [place], [place] [phone] documented as of this encounter Visit Diagnoses Not on filedocumented in this encounter Care Teams Policy Writer Sales Relationship Specialty Start Date End Date Cecy Gonzalez FNP PCP - General Family Medicine 08/22/22 12/21/22 Hue Meza MD [address] [place], [place] [phone] PCP - General Internal Medicine 12/22/22 documented as of this encounter
--- OUTSIDE RECORDS SUMMARY | 2024-04-22 11:17 | XMS_ITS | Encounter Summary ---
Author Organization [employer] [facility] Address [address] [place] [address] 7 [place] [address] Care Team Providers Care Humidifier Attendant Name Role Phone Cecy Gonzalez Primary Care Provider +1- [phone] Hue Meza MD Primary Care Pro vider Reason for Visit * Reason Comments Med Refill Encounter Details Date Type Department Care Team (Late Contact Info) Description 12/12/2022 Refill [facility] [address] [place] [address] Cecy Gonzalez FNP [address] [place] [address] Dept [place] [address] Primary hypertension Social History Tobacco Use Types Packs/Day Years Used Date Smoking Tobacco: Unknown Depression Answer Date Recorded Patient Health Questionnaire-9 Score 15 12/05/2022 Depression Answer Date Recorded Patient Health Questionnaire-2 [...] Encounters Date Type Department Care Team (Late Contact Info) Description 05/16/2024 11:00 AM EST Medication Management [facility] [address] [place], [place] [phone] Fely Bowens, Jamie [address] [place], [place] [phone] documented as of this encounter Goals Goal Patient Goal Type Associated Problems Recent Progress Patient-Stated? Author Blood Pressure < 140/90 Blood Pressure 138/74(2023 11:08 AM EST) No Boby Anand Hemoglobin A1c < 8 Result Component 7.7( 10:33 AM EST) No Boby Anand documented as of this encounter Visit Diagnoses Diagnosis Primary hypertension Unspecified essential hypertension documented in this encounter Additional Health Concerns Assessment Noted Time PHQ-9 Depression Total Score: 15 023 1:49 PM EDT documented as of this encounter Care Teams Humidifier Attendant Relationship Specialty Start Date End Date Cecy Gonzalez FNP PCP - General Family Medicine 08/22/22 12/21/22 Hue Meza MD [address] [place] [phone] PCP - General Internal Medicine 12/22/22 documented as of this encounter
--- OUTSIDE RECORDS SUMMARY | 2024-04-22 11:17 | XMS_ITS | Encounter Summary ---
Author Organization [employer] Address [address] [facility] 7t [place] [address] Care Team Providers Care Data Management Name Role Phone Hue Meza MD Primary Care Pro vider Reason for Visit * Reason Comments Med Refill Encounter Details Date Type Department Care Team (Late st Contact Info) Description 04/16/2024 Refill [facility] [address] [place], [place] [phone] Hue Meza MD [address] [place], [place] [phone] Essential hypertension Social History Tobacco Use Types Packs/Day Years Used Date Smoking Tobacco: Never Smokeless Tobacco: Never Alcohol Use Standard Drinks/Week Comments Never 0 (1 standard drink = 0.6 oz pur e alcohol) Depression Answer Date Recorded Patient Health Questionnaire-9 Score 12 10/16/2023 Patient Health Questionnaire-9 Score 12 10/16/2023 Last PHQ-9: Questionnaire Data Not on file 0 10/16/2023 Housing Stability Answer Date Recorded What is your housing situation today? I have arron sing 11/30/[address] you li [...] Description 05/16/2024 11:00 AM EST Medication Management [facility] [address] [place] [address] Fely Bowens, PharmD [address] [place] [address] documented as of this encounter Goals Goal Patient Goal Type Associated Problems Recent Progress Patient-Stated? Author Blood Pressure < 140/90 Blood Pressure 138/74(2023 11:08 AM EST) No Boby Anand Hemoglobin A1c < 8 Result Component 7.7( 10:33 AM EST) No Boby Anand documented as of this encounter Visit Diagnoses Diagnosis Essential hypertension Unspecified essential hypertension documented in this encounter Additional Health Concerns Assessment Noted Time PHQ-9 Depression Total Score: 12 024 11:37 AM EDT documented as of this encounter Care Teams Data Management Relationship Specialty Start Date End Date Hue Meza MD [address] [place] [address] PCP - General Internal Medicine 12/22/22 documented as of this encounter
--- OUTSIDE RECORDS SUMMARY | 2024-04-22 11:17 | XMS_ITS | Encounter Summary ---
Author Organization [employer] Address [address] 7[address] [place] [address] Care Team Providers Care Mission Assessment Specialist Name Role Phone Hue Meza MD Primary Care Pro vider Encounter Details Date Type Department Care Team (Late st Contact Info) Description 03/25/2024 Orders Only GENERIC EXTERNAL DATA DEPARTMENT Provider, Generic External Data Social History Tobacco Use Types Packs/Day Years [...] Description 05/16/2024 11:00 AM EST Medication Management [facility] [address] [place], [place] [phone] Fely Bowens, PharmD 230 [place] [address] documented as of this encounter Goals Goal Patient Goal Type Associated Problems Recent Progress Patient-Stated? Author Blood Pressure < 140/90 Blood Pressure 138/74(2023 11:08 AM EST) No Boby Anand Hemoglobin A1c < 8 Result Component 7.7( 10:33 AM EST) No Boby Anand documented as of this encounter Procedures Procedure Name Priority Date/Time Associated Diagnosis Comments NM HEPATOBILIARY W PHARM Routine 04/04/2024 10:26 AM EST CBC WITH AUTO DIFFERENTIAL Routine 03/25/2024 10:58 AM EST SED RATE BY MODIFIED WESTERGREN Routine 03/25/2024 10:58 AM EST C-REACTIVE PROTEIN Routine 03/25/2024 10 :58 AM EST COMPREHENSIVE METABOLIC PANEL Routine 03/25/2024 10:58 AM EST documented in this encounter Results * NM Hepatobiliary w Pharm (04/04/2024 10:26 AM EST) Anatomical Region Laterality Modality Body Nuclear Medicine 04/04/2024 10:2 6 AM EST Narrative 04/04/2024 2:19 PM EST ? [facility] ?[address] ?[place], [place] [address] ?Nuclear Medicine Report ? Signed ? Patient: Leigh Ann Russell,Gisell ?MR#: ?? [id number] ? : 1945 ?Acct:[id number] ? Age/Sex: 78 / F ?ADM Date: 04/04/24 ? Loc: HO.NUCMED ? Attending Dr: Dano Canada MD ? Ordering Physician: Dano Canada MD ?? Date of Service: 04/04/24 ?? Procedure(s): NM hepatobiliary w pharm ?? Accession Number(s): [id number] ? cc: Dano Canada MD; uHe Meza MD ? EXAMINATION: ?? NM BILIARY [...] 02:14 PM EST RP ? Dictated By: ?Zuleima,Kojo S MD ? Signed By: ?<Electronically signed by Kojo S MD Zuleima in OV> ?04/04/24 1414 ? DD/ 1026 ? TD/TT: 04/04/24 1240 ? Apartment Rental Clerk: MSM ? Procedure Note Donotuseinterpreter, Image - 04/04/[address] [address] Nuclear Medicine Report Signed Patient: Hue Murphy DMR#: [id number] : 6Acct:[id number] Age/Sex: 78 / FADM Date: 04/04/24 Loc: [facility] Attending Dr: Dano Canada MD Ordering Physician: Dano Canada MD Date of Service: 04/04/24 Procedure(s): NM hepatobiliary w pharm Accession Number(s): [id number] cc: Dano Canada MD; Hue Meza MD EXAMINATION: CO BILIARY TRACT CLINICAL INFORMATION: Right upper quadrant [...] by: Kojo Dewey MD 04/04/2024 02:14 PM [facility] Dictated By: Kojo Dewey MD Signed By: <Electronically signed by Kojo Dewey MD in OV> 04/04/24 1414 DD/ 1026 TD/TT: 04/04/24 1240 Apartment Rental Clerk: SAEED [facility] External Provider IMG NM PROCEDURES Edited Result - Final * (ABNORMAL) C-reactive Protein (03/25/2024 10:58 AM EST) C Reactive Protein 3.49(H) < or = 0.50 mg/dL [facility] 03/25/2024 10:5 8 AM EST 03/25/2024 10:58 AM EST us Generic External Data Provider LAB BLOOD ORDERAB LES Final Result [facility] [address] [place] [address] [phone] * (ABNORMAL) Comprehensive Metabolic Panel (03/25/2024 10:58 AM EST) Sodium 142 135 - 145 mmol/L [facility] Potassium 3.6 3.3 - 5.1 mmol/L [facility] Chloride 110(H) 96 - 108 mmol/L [facility] Carbon Dioxide 26 22 - 29 mmol/L [facility] Anion Gap 10(L) 12 - 20 [facility] Urea Nitrogen (BUN) 20(H) 9 - 16 mg/dL [facility] Creatinine, Serum 1.15 0.5 - 1.4 mg/dL [facility] Estimated Glomerular Filt Rate 46 [facility] Comment:Chronic Kidney Disea se: Estimated GFR < 60 mL/min/[id number] Kidney Disease: Estimated GFR < 15 mL/min/1.73m2 Glucose 169(H) 60 - 115 mg/dL [facility] Calcium 9.1 8.4 - 10.2 mg/dL [facility] Bilirubin, Total 0.5 0.0 - 1.0 mg/dL [facility] Aspartate Amino Transferase 30 5 - 31 U/L [facility] Alanine Aminotransferase 28 0 - 31 U/L [facility] Total Protein 8.1(H) 6.5 - 8.0 g/dL [facility] Albumin Level 4.1 3.5 - 5.0 g/dL [facility] Alkaline Phosphatase 92 39 - 117 U/L [facility] 03/25/2024 10:5 8 AM EST 03/25/2024 10:58 AM EST Generic External Data Provider LAB BLOOD ORDERAB LES Final Result Performing Organization Address [facility] Hospital/ZIP Co de Phone Number [facility] [address] [place] [address] [phone] * (ABNORMAL) Sed Rate by Modified Westergren (03/25/2024 10:58 AM EST) Erythrocyte Sedimentation Rate 39(H) 0 - 20 MM/HR [facility] Comment:Patients with polycy themia and many hemoglobin abnormalitiesmay have depressed sed rates whereas patients with anemiamay have elevated sed rates. 03/25/2024 10:5 8 AM EST 03/25/2024 10:58 AM EST Generic External Data Provider LAB BLOOD ORDERAB LES Final Result Performing Organization Address City/[facility] Hospital/ZIP Co de Phone Number [facility] [address] [place] [address] [phone] * (ABNORMAL) CBC auto differential (03/25/2024 10:58 AM EST) White Blood Count 11.3(H) 4.8 - 10.8 X10*3/uL [facility] Red Blood Count 3.86(L) 4.20 - 5.50 X10*6/uL [facility] Hemoglobin 11.2(L) 12.0 - 16.0 g/dl [facility] Hematocrit 35.1(L) 37.0 - 47.0 % [facility] Mean Corpuscular Volume 90.9 80.0 - 98.0 fL [facility] Mean Corpuscular Hemoglobin 29.0 27.0 - 33.0 pg [facility] Mean Corpuscular HGB Conc 31.9 31.0 - 35.0 g/dl [facility] Red Cell Distribution Width 13.5 11.0 - 16.0 % [facility] Platelet Count 253 160 - 400 X10*3/uL [facility] Mean Platelet Volume 11.1 9.4 - 12.3 fL [facility] Neutrophils Percent Auto 52.1 45 - 73 % [facility] Imm Gran Pct Auto 0.4 0.0 - 0.4 % [facility] Lymphocytes Percent Auto 26.6 20 - 40 % [facility] Monocytes Percent Auto 12.6(H) 2 - 11 % [facility] Eosinophils Percent Auto 7.6(H) 0 - 4 % [facility] Basophils Percent Auto 0.7 0 - 2 % [facility] NRBC Pct Auto 0.0 0.0 - 0.2 /100WBC [facility] Neutrophils Absolute Auto 5.9 2.0 - 8.3 x10*3/uL [facility] Imm Gran Abs Auto 0.04(H) 0.00 - 0.03 X10*3/uL [facility] Lymphocytes Absolute Auto 3.0 1.2 - 4.9 X10*3/uL [facility] Monocytes Absolute Auto 1.4(H) 0.1 - 1.2 X10*3/uL [facility] Eosinophils Absolute Auto 0.9(H) 0.0 - 0.4 X10*3/uL [facility] Basophils Absolute Auto 0.1 0.0 - 0.2 X10*3/uL [facility] NRBC Abs Auto 0.000 0.0 - 0.012 X10*3/uL [facility] 03/25/2024 10:5 8 AM EST 03/25/2024 10:58 AM EST us Generic External Data Provider LAB BLOOD ORDERAB LES Final Result [facility] [address] [place] [address] [phone] documented in this encounter Visit Diagnoses Not on filedocumented in this encounter Additional Health Concerns Assessment Noted Time PHQ-9 Depression Total Score: 12 024 11:37 AM EDT documented as of this encounter Care Teams Mission Assessment Specialist Relationship Specialty Start Date End Date Hue Meza MD [address] [place] [phone] PCP - General Internal Medicine 12/22/22 documented as of this encounter
--- OUTSIDE RECORDS SUMMARY | 2024-04-22 11:17 | XMS_ITS | Encounter Summary ---
Author Organization [employer] Address [address] [facility] 7t [place] [address] Care Team Providers Care Elevator Service Technician Name Role Phone Hue Meza MD Primary Care Pro vider Reason for Visit * Reason Comments Med Refill Encounter Details Date Type Department Care Team (Late st Contact Info) Description 12/06/2023 Refill [facility] [address] [place] [address] Racheal Mcclain, PharmD [address] [place] [address] Social History Tobacco Use Types Packs/Day Years [...] Description 05/16/2024 11:00 AM EST Medication Management [facility] [address] [place] [address] Fely Bowens, PharmD [address] [place] [address] documented as of this encounter Goals Goal [...] documented as of this encounter Care Teams Elevator Service Technician Relationship Specialty Start Date End Date Hue Meza MD [address] [place] [address] PCP - General Internal Medicine 12/22/22 documented as of this encounter
== END 2024-04-22 10:49 | disposition home or self-care (01) ==
PROVIDERS: PCP Student in an Organized Health Care Education/Training Program; Visit Provider Surgery
DX: K82.8 Other specified diseases of gallbladder (principal)
CPT/HCPCS: 99213

== ENCOUNTER → 2024-04-22 10:27 | Outpatient (BNVA) | payer OTHER, SELFPAY | PROVIDERS: PCP Student in an Organized Health Care Education/Training Program; Visit Provider Surgery | DX: K82.8 Other specified diseases of gallbladder (principal) | CPT/HCPCS: 99212 ==

== ENCOUNTER 2024-05-08 09:59 | Outpatient (AMB) | payer OTHER, SELFPAY ==
--- NOTE | 2024-05-08 10:04 | MHC.OFFVIS ---
Vital Signs 05/08/24 10:09 Height 4 ft 11 in Weight 134 lb 4.184 oz BMI 27.1 BP 124/64 Blood Pressure Location Rt brachial Position Sitting Pulse 72 Pulse Source Pulse Oximeter Pulse Oximetry (%) 98 Oxygen Delivery Method Room Air Intake Visit Reasons: RA Intake Note: Patient presents for RA. Emergency Room Registered Nurse Required: Yes Emergency Room Registered Nurse Language: Casing Worker Services: Emergency Room Registered Nurse Present Emergency Room Registered Nurse Name: Liliana [id number] Information Interpreted: non-clinical & clinical Allergies losartan Adverse Reaction (Mild, Verified 05/08/24 10:09) Cough Medication List - Last Reconciled 05/08/24 by Mima Black MD albuterol sulfate 90 mcg/actuation (Ventolin HFA) 2 puffs inhalation Q4-6H PRN 30 days alendronate 70 mg PO QWEEK amlodipine 5 mg PO DAILY aspirin 81 mg PO BEDTIME atorvastatin 40 mg PO BEDTIME blood sugar diagnostic As directed calcium carbonate-vitamin D3 600 mg-20 mcg (800 unit) 600 tabs PO DAILY carvedilol 3.125 mg PO BID cyanocobalamin (vitamin B-12) 1,000 mcg PO DAILY donepezil 10 mg PO DAILY Enbrel SureClick (etanercept) 50 mg subcut QWEEK NS famotidine 40 mg PO BEDTIME fluoxetine 10 mg PO DAILY fluticasone propion-salmeterol 500-50 mcg/dose 1 ea PO BID fluticasone propionate 50 mcg/actuation 2 sprays intranasal DAILY furosemide 20 mg PO DAILY gabapentin 300 mg PO BEDTIME Incruse Ellipta 62.5 mcg/actuation (umeclidinium) 1 inh inhalation DAILY NS insulin glargine (Lantus Solostar U-100 Insulin) 100 units subcut DAILY lancets As directed lidocaine 5% 1 patch topical DAILY methimazole 10 mg PO BID pantoprazole 40 mg PO QAM pen needle, diabetic As directed pyridoxine (vitamin B6) 50 mg PO DAILY 30 days sitagliptin phosphate (Januvia) 50 mg PO DAILY HPI Comments Details: Patient is a 78-year-old female with COPD, hypertension, hyperlipidemia, diabetes, osteopenia with a high FRAX score, and rheumatoid arthritis here today for follow up Interval History: Patient last seen 02/06/[address] Anderson. At that time she continued to have pain and swelling in her hands, wrists, shoulders. She was not on any DMARDs and based on the examination she had continued active synovitis. Risks and benefits of Enbrel was discussed with the daughter and granddaughter they opted to proceed. Since that visit she was able to start the medication 02/2024. This has been associated with improvement in the swelling of her hands. Today she complains of bilateral shoulder pain and neck pain Rheumatologic History: ++RF+++CCP dx many years ago. Unknown previous DMARDs SSZ started 08/08 stopped due to transaminitis HCQ 07/2023 DC 10/2023 ineffective Enbrel 01/2024 Current Rheumatology Medication(s): Enbrel 50mg SC weekly [facility] Medical History (Updated 05/08/24 @ 10:51 by Mima Black MD) Encounter for monitoring of adalimumab therapy Osteoarthritis of acromioclavicular joints, bilateral Latent tuberculosis Restrictive lung disease CAD (coronary artery disease) Asthma Allergic rhinitis COPD exacerbation COPD (chronic obstructive pulmonary disease) Cough Hypertension Diabetes Surgical History History of hysterectomy Hx of CABG Family History Mother Acute arthritis Social History Household Members: Family Housing: Apartment Do you presently have visiting nurse or other home services: Yes ([employer] and [employer]) Alcohol intake: never Patient Tobacco Use Status: Never used Tobacco e-Cigarette/Vaping Use: Never Used Second Hand Smoke Exposure: No service: No Current occupational status: unemployed Review of Systems Const Details: Review of Systems Constitutional: Denies fever, chills, weight loss ENT: Denies vision changes, eye pain or eye redness, dental caries, dry mouth GI: Denies nausea, vomiting, diarrhea, abdominal pain, change in BM Pulm: Denies SOB, JOYA, hemoptysis, wheezing Cards: Denies chest pain, palpitations Skin: Denies Raynaud's, rash, nail changes, photosensitivity, MATERIAL HANDLER LOADER: Denies headaches, weakness, paresthesias, recurrent falls MSK: as per HPI All other systems reviewed and are unremarkable except noted above Physical Exam Vital Signs: Last Vital Signs Pulse 72 05/08/24 10:09 BP 124/64 05/08/24 10:09 Pulse Ox 98 05/08/24 10:09 Oxygen Delivery Method Room Air 05/08/24 10:09 BMI result Body Mass Index 27.1 Vital signs reviewed Physical Examination CONSTITUITIONAL Elderly frail woman HEENT Conjunctiva and sclera clear. ?Pupils equal round and reactive to light. ?No lymphadenopathy. ? CHEST/RESPIRATORY SYSTEM Clear to auscultation bilaterally. ?End expiratory wheezes heard CARDIAC SYSTEM Regular rate and rhythm. ?S1 and S2 heard no murmurs. ?Radial pulses intact bilaterally MSK Hands: Able to make a fist. Tenderness to palpation of MCPs bilaterally 2nd-5th Wrists: ?Full range of motion however tenderness to palpation of bilateral wrists. Elbows: Full range of motion without pain. No tenderness, weakness, swelling, increased warmth or erythema. Shoulders: Decreased range of motion. Tenderness to palpation of the AC joints bilaterally. Knees: ?Full range of motion. ?No tenderness, swelling, increased warmth or erythema.?No effusion or crepitations SKIN Skin intact without rashes. Office Procedures AMB Joint Injection/Aspiration Joint Injection/Aspiration Details: Procedure was explained to the patient and consent was obtained. ? The area of interest was identified and confirmed with patient. ?This was subsequently cleaned with chlorhexidine x3. ? The area was then anesthetized using ethyl chloride spray. 40 mg Kenalog with 1 cc 1% lidocaine was injected without issue. ?Minimal to no bleeding. ?Patient tolerated procedure. Primary Site: right shoulder Prep: site was prepped using aseptic technique and ethochloride spray was applied Injected: 40 mg of, Kenalog, with 1 mL of and 1% plain lidocaine Approach Used: anterior Procedure: The patient tolerated the procedure well Coding 24976 - Medium joint Procedure code (CPT) selection complete AMB Joint Injection/Aspiration Joint Injection/Aspiration Details: Procedure was explained to the patient and consent was obtained. ? The area of interest was identified and confirmed with patient. ?This was subsequently cleaned with chlorhexidine x3. ? The area was then anesthetized using ethyl chloride spray. 40 mg Kenalog with 1 cc 1% lidocaine was injected without issue. ?Minimal to no bleeding. ?Patient tolerated procedure. Primary Site: left shoulder Prep: site was prepped using aseptic technique and ethochloride spray was applied Injected: 40 mg of, Kenalog, with 1 mL of and 1% plain lidocaine Approach Used: anterior Procedure: The patient tolerated the procedure well Coding 53166 - Medium joint Procedure code (CPT) selection complete Office Meds lidocaine (PF) 10 mg/mL (1 %) injection solution Performing Provider: Mima Black MD [place] [facility] [place] [facility] Administered by: Mima Black MD on 05/08/24 10:52 Dose Route Admin Location Dispensed Lot Number Expiration Date [facility] Flamer After Lasting 1 mL Infiltration right AC joint 2 mL [id number] 06/17/26 35018-023-68 [employer] Kenalog 40 mg/mL suspension for injection Performing Provider: Mima Black MD [place] [facility] [place] [facility] Administered by: Mima Black MD on 05/08/24 10:52 Dose Route Admin Location Dispensed Lot Number Expiration Date [facility] Flamer After Lasting 40 mg intra-articular right AC joint 1 mL [id number] 09/16/26 [address]-7 [employer] lidocaine (PF) 10 mg/mL (1 %) injection solution Performing Provider: Mima Black MD [place] [facility] [place] [facility] Administered by: Mima Black MD on 05/08/24 10:52 Dose Route Admin Location Dispensed Lot Number Expiration Date [facility] Flamer After Lasting 1 mL Infiltration left AC joint 2 mL [id number] 06/17/26 50925-764-71 [employer] Kenalog 40 mg/mL suspension for injection Performing Provider: Mima Black MD [place] [facility] [place] [facility] Administered by: Mima Black MD on 05/08/24 10:52 Dose Route Admin Location Dispensed Lot Number Expiration Date [facility] Flamer After Lasting 40 mg intra-articular left AC joint 1 mL [id number] 09/16/25 [address]-5 [employer] Results Reviewed Results Reviewed: Laboratory Tests 03/25/24 04/09/24 10:58 14:53 WBC 11.4 H RBC 4.04 L Hgb 11.6 L Hct 36.7 L Plt Count 347 D ESR 39 H Sodium 144 Potassium 4.2 Chloride 110 H Carbon Dioxide 29 BUN 17 H Creatinine 1.08 AST 30 35 H ALT 28 34 H C-Reactive Protein 3.49 H Total Protein 8.2 H Laboratory Tests 12/22/21 04/21/22 11:45 13:11 Rheumatoid Factor 392.2 H Cycl Citrul Peptide IgG >250 H DEXA 04/2022 FINDINGS: AP SPINE L1-L4: Current: BMD 0.938 g/cm2, Z-score -0.6, T-score -2.0, osteopenia, 8.8% decrease from baseline (<5% change is not significant). Baseline: BMD 1.029 g/cm2. LEFT FEMUR, NECK: Current: BMD 0.743 g/cm2, Z-score -0.4, T-score -2.1, osteopenia. Baseline: BMD 0.849 g/cm2. LEFT FEMUR, TOTAL: Current: BMD 0.746 g/cm2, Z-score -0.5, T-score -2.1, osteopenia, 18.0% decrease from baseline (<5% change is not significant). Baseline: BMD 0.910 g/cm2. FRAX: Major osteoporotic fracture (clinical spine, forearm, hip or shoulder) 12.8%. Hip fracture 3.9%. XR Bilateral Shoulders 03/2023 FINDINGS: Right Shoulder: [id number]-[id number] degenerative changes in the acromioclavicular joint with joint space narrowing and hypertrophic change. Degenerative changes with hypertrophic change along the glenoid. Bones are diffusely demineralized. Moderate soft tissue calcifications adjacent to the humeral head and acromion. Large spur along the inferior aspect of the acromion. Degenerative changes in the partially imaged upper thoracic spine with median sternotomy wires. Left Shoulder: Hhtnhshf-oo-ivhtze degenerative changes in the acromioclavicular joint with joint space narrowing and hypertrophic change. Degenerative changes with hypertrophic change along the glenoid. Bones are diffusely demineralized. Soft tissue calcifications along the inferior aspect of the glenohumeral space. Large spur along the inferior aspect of the acromion. Degenerative changes in the partially imaged upper thoracic spine with median sternotomy wires. IMPRESSION: [id number]-[id number] degenerative changes bilateral acromioclavicular joints. Soft tissue calcifications adjacent to the bilateral humeral heads and acromion, right greater than left. Assessment & Plan Assessment & Plan (1) Rheumatoid arthritis: Comment: ++RF+++CCP dx many years ago. Unknown previous DMARDs SSZ started 08/08 stopped due to transaminitis HCQ 07/2023 DC 10/2023 ineffective Code(s): M06.9 - Rheumatoid arthritis, unspecified Category: Medical Qualifiers: Rheumatoid arthritis location: multiple sites Rheumatoid factor presence: with rheumatoid factor Qualified Code(s): M05.79 - Rheumatoid arthritis with rheumatoid factor of multiple sites without organ or systems involvement Plan: #Seropositive RA Patient is a 78-year-old female with seropositive rheumatoid arthritis recently started on Enbrel. Enbrel is ineffective as evidenced by persistent tenderness to palpation of the MCPs and wrists. This is also supported by persistently elevated CRP. We will switch to Humira Plan - Stop Enbrel - Start Humira 40mg SC every other week - RTC 4 months - Labs before visit: CBC, CMP, ESR, CRP, hepatitis panel, T spot (2) Restrictive lung disease: Comment: This patient has had previous chest surgery, has a long mid sternal scar. Pulmonary function test has shown moderately severe restrictive pulmonary disorder. This is mainly the reason for her shortness of breath on exertion. Code(s): J98.4 - Other disorders of lung Category: Medical Plan: #Restrictive lung disease Patient with severe restrictive lung disease. CT scan with no evidence of ILD. Unlikely to be related to her rheumatoid arthritis (3) Osteopenia: Code(s): M85.80 - Other specified disorders of bone density and structure, unspecified site Category: Medical Qualifiers: Osteopenia location: multiple sites Qualified Code(s): M85.89 - Other specified disorders of bone density and structure, multiple sites Plan: #Osteopenia with high FRAX score On alendronate Check DEXA at next visit (4) Osteoarthritis of acromioclavicular joints, bilateral: Code(s): M19.011 - Primary osteoarthritis, right shoulder; M19.012 - Primary osteoarthritis, left shoulder Category: Medical Plan: #Bilateral AC joint OA Bilateral AC joint OA with pain to shoulders today. Status post bilateral steroid injection (5) Encounter for monitoring of adalimumab therapy: Code(s): Z51.81 - Encounter for therapeutic drug level monitoring; Z79.620 - moth exterminator (current) use of immunosuppressive biologic Category: Medical Plan: #Long-term Use of TNF Inhibitors: Humira Discussed with the patient the benefits and risks of TNF inhibitors for the management of the rheumatic condition Benefits include reduce pain, maintenance of remission and reduction of flares as well as ?progression of the disease Risks include injection sites/infusion reactions, serious infections (such as bacterial infections, opportunistic infections), malignancy, delaminating syndromes, autoimmune phenomena, CHF exacerbations, palmar plantar psoriasis and cytopenias Recommended rotating injection sites, and holding medication during and for up to 1 week after resolution of a febrile illness or open skin wound Plan I spent 35 minutes reviewing the record and labs, taking a history, examining the patient, discussing the treatment plan and documenting in the medical record Orders: Orders AMB Joint Injection/Aspiration Today M19.011 - Primary osteoarthritis, right shoulder, M19.012 - Primary osteoarthritis, left shoulder Vitamin D 25-OH Total 4 Months E55.9 - Vitamin D deficiency, unspecified AMB Joint Injection/Aspiration Today M19.011 - Primary osteoarthritis, right shoulder, M19.012 - Primary osteoarthritis, left shoulder Medications: New adalimumab (Humira(CF) Pen) 40 mg (0.4 mL) subcut Q2W 2 ea 5RF M05.79 - Rheumatoid arthritis with rheumatoid factor of multiple sites without organ or systems involvement Discontinued Enbrel SureClick (etanercept) Discontinued Reason: Doctor's Order 50 mg subcut QWEEK 4 mL 2RF NS M05.79 - Rheumatoid arthritis with rheumatoid factor of multiple sites without organ or systems involvement Coding Level of Care Code Est Pt Level 4 (35690) Complex EM visit Add On G2211 Diagnoses Rheumatoid arthritis involving multiple sites with positive rheumatoid factor M05.79 Rheumatoid arthritis location: multiple sites Rheumatoid factor presence: with rheumatoid factor Restrictive lung disease J98.4 Osteopenia of multiple sites M85.89 Osteopenia location: multiple sites Osteoarthritis of acromioclavicular joints, bilateral M19.011; M19.012 Encounter for monitoring of adalimumab therapy Z51.81; Z79.620 CPT Codes Coding - 15022 Medium joint: 39565 - Medium joint ([id number]) Coding - 72735 Medium joint: 49232 - Medium joint ([id number])
[2024-05-08 10:09] VITALS: BP 124/64; PULSE 72; O2SAT 98; BMI 27.1
--- OUTSIDE RECORDS SUMMARY | 2024-05-08 10:57 | XMS_ITS | Data Portability ---
Author Organization [facility] [place] [facility] Address [address] [place] [id number] Care Team Providers Care Tie Binder Name Role Phone [facility] Referring Provider [phone] [facility] Referring Provider Assessment Encounter Date Assessment Date Assessment LastModified by Organization Details LastModified Time 07/13/2021 07/13/2021 I have reviewed and agree with the Assessment and Plan as documented by the Aircraft Tool Maker. I provided real -time medical direction via phone for this encounter, and was available for additional phone based assistance as needed. Patient given the opportunity to ask questions. [email or web address] Not available 07/13/2021 19:23:03 Plan of Treatment Reminders Order Date Submit Date Provider Last Modified By Organization Details Last Modified Time Details Appointments None recorded. Lab rapid flu (A+B) 2021 022 [email or web address] 0 [facility], [address] [place] [address], [phone], 18:48:47 glucose, fingerstick , blood 2021 022 [email or web address] [address], [phone], 18:48:46 rapid SARS CoV 2 Ag, QL IA, respiratory specimen 2021 022 [email or web address] [address], [phone], 18:48:46 Referral None recorded. Procedures None recorded. Surgeries None recorded. Imaging None recorded. Medication Orders prednisone 20 mg tablet 2021 022 [email or web address] 0 Not available 18:48:46 prednisone 20 mg tablet 2021 022 [facility], [address] [facility], [place], [place], [phone], 19:01:03 Patient TargetsNo targets recorded. Patient InstructionsNo instructions recorded. Reason for Referral None Reported. Results Created Date Observation Date Name Description Value Unit Range Abnormal Flag Note LastModifiedBy Organization Detail LastModifiedTime 07/14/19 22 07/13/2021 gluco se, finge rstic k, blood Blood Glucose: mg/dl 138 Not Available [facility] - [facility] [address] [place] [address], [phone], 07/13/2021 18:41:35 07/14/19 22 07/13/2021 rapid SARS CoV 2 Ag, QL IA, respi rator y speci men rapid SARS CoV 2 Ag, QL IA, respiratory specimen negati ve Not Available [facility] - [facility] [address] [place] [address], [phone], 07/13/2021 18:41:44 07/14/19 22 07/13/2021 rapid flu (A+B) Flu negati ve Not Available [facility] - [facility] [address] [place] [address], [phone], 07/13/2021 18:41:29 Result Notes None recorded. Medical [...] Address Organization Details Last Updated DateTime 07/13/2021 77077.93 g Jagdish Clinton [address] [place] [address],[address], [place], [phone], [place] - [email or web address] 07/13/2021 19:21:29 Date Recorded Respiratory rate Heart [...] /min 98.6 [degF] 97 % 97 % 53070.8 8 g 98.6 [degF] 24 /min 97 [...] Note 1225 Larisa Shaver MD Main - [address] [place] [phone] 07/13/2021 18:37:50 11/24/2021 18:09:23 Acute exacerbation of chronic obstructive pulmonary disease [id number] J44.1 pat advised can use nebs (albuterol [...] Clark Member ID Guarantor Name 07/13/2021 1 [facility] - DOS PRIOR TO 2022 - DUAL ELIGIBLE (MEDICARE REPLACEMENT/ADV ANTAGE - HMO) Hue Russell [id number] Hue Russell Notes Date Note Type Note [...] ..................... ..................... ..................... ..................... ..................... ..................... ............... Aircraft Tool Maker Note: Evaluated pt with assistance from cloth baler, c/o sob/guillermo. Upon arrival, pt is awake [...] taking her own neb treatment and consulted [facility] ordered q4 neb treatments, plenty of fluid intake, 40mg of PO prednisone to be dispensed now with a script to be sent to pharmacy. [facility] detailed treatment plan with request that pt f/u with pcp <48 hours. Went over red flags and no further questions or concerns at this time. ..................... ..................... ..................... ..................... ..................... ..................... ............... Disposition: Fulfilled Larisa Shaver MD [address] [facility],[address], [place], [phone], [employer] - [email or web address] 07/13/2021 19:26:34 OBGyn Episode No OBEpisode recorded.
== END 2024-05-08 10:52 | disposition home or self-care (01) ==
PROVIDERS: PCP Student in an Organized Health Care Education/Training Program; Visit Provider Student in an Organized Health Care Education/Training Program
DX: M05.79 Rheumatoid arthritis with rheumatoid factor of multiple sites without organ or systems involvement (principal); J98.4 Other disorders of lung; M85.89 Other specified disorders of bone density and structure, multiple sites; M19.011 Primary osteoarthritis, right shoulder; M19.012 Primary osteoarthritis, left shoulder; Z51.81 Encounter for therapeutic drug level monitoring; Z79.620 Long term (current) use of immunosuppressive biologic
CPT/HCPCS: 20605; 99214

== ENCOUNTER → 2024-05-08 09:59 | Outpatient (BNVA) | payer OTHER, SELFPAY | PROVIDERS: PCP Student in an Organized Health Care Education/Training Program; Visit Provider Student in an Organized Health Care Education/Training Program | DX: M05.79 Rheumatoid arthritis with rheumatoid factor of multiple sites without organ or systems involvement (principal); M85.89 Other specified disorders of bone density and structure, multiple sites; M19.011 Primary osteoarthritis, right shoulder; M19.012 Primary osteoarthritis, left shoulder; J98.4 Other disorders of lung; Z51.81 Encounter for therapeutic drug level monitoring; Z79.620 Long term (current) use of immunosuppressive biologic | CPT/HCPCS: 20605; 20610; 99212; J3300 ==

== ENCOUNTER 2024-05-16 11:35 | Outpatient (AMB) | payer OTHER, SELFPAY ==
--- NOTE | 2024-05-16 11:39 | MHC.OFFVIS ---
Vital Signs 05/16/24 11:43 Height 4 ft 11 in Weight 132 lb 4.438 oz BMI 26.7 BP 136/66 Blood Pressure Location Rt brachial Position Sitting Pulse 62 Pulse Source Pulse Oximeter Pulse Oximetry (%) 99 Oxygen Delivery Method Room Air Intake Visit Reasons: 2 month follow up Intake Note: ESTABLISHED PATIENT for mgmt of reflux + abd bloating. [facility] Chief Complaint; C/O reflux w/o dysphagia. Pt states that she is still taking her medications as instructed w/o significant improvement. Pt also reporting epigastric pain w/o N+V. Constipation reported w/o concern for hemorrhoid per pt. Pt denies any other concern. Career Developer Required: Yes Career Developer Services: Career Developer Offered & Declined Career Developer Name: Granddaughter Information Interpreted: non-clinical & clinical Accompanied by: Grand Child Allergies losartan Adverse Reaction (Mild, Verified 05/16/24 11:41) Cough HPI HPI 2 month follow up: Details: LAST VISIT: Postprandial epigastric pain Postprandial diarrhea GERD (gastroesophageal reflux disease) Abdominal bloating Constipation Plan Barium swallow report not read yet. Pending results will be sending patient for upper endoscopy. Patient will start taking pantoprazole in the morning and famotidine at bedtime. Patient's granddaughter to inquire with pharmacy and if there is a trouble with refilling due to insurance she is to call the office. Follow-up in 2 months, sooner on as needed basis. Patient is agreeable to this plan and verbalizes understanding of instructions. She was given the opportunity to ask questions and all questions answered. ? Thank you for allowing me to participate in her care Medications Refilled famotidine 40 mg PO BEDTIME 30 tabs 3RF K21.9 pantoprazole take one tablet half an hour before breakfast 40 mg PO DAILY 30 tabs 2RF K21.9 TODAY'S VISIT Patient is here today for follow-up. Patient reports that she has been feeling better, however she still continues to have reflux. Patient reports that she she is not eating late at night. States that for the most part her symptoms are controlled. Patient had HIDA scan done by general surgeon and was found to have a biliary dyskinesia. EF 11% and normal should be 35-85%. Patient decided not to go for surgery. She rarely has any pain after eating. Patient denies any dyspepsia, dysphagia or odynophagia. Patient reports trouble with hemorrhoids, constipation and has to push she to have a bowel movement. Occasional blood after bowel movement when wiping. Patient denies any other GI concerning symptoms [facility] Medical History Encounter for monitoring of adalimumab therapy Osteoarthritis of acromioclavicular joints, bilateral Latent tuberculosis Restrictive lung disease CAD (coronary artery disease) Asthma Allergic rhinitis COPD exacerbation COPD (chronic obstructive pulmonary disease) Cough Hypertension Diabetes Surgical History History of hysterectomy Hx of CABG Family History Mother Acute arthritis Social History Household Members: Family Housing: Apartment Do you presently have visiting nurse or other home services: Yes ([facility] and NURSE EMERGENCY ROOM) Alcohol intake: never Patient Tobacco Use Status: Never used Tobacco e-Cigarette/Vaping Use: Never Used Second Hand Smoke Exposure: No Use of substances other than those prescribed or required for medical reasons: No Have you been hit, kicked, punched, or otherwise hurt by someone within the past year? If so, by whom?: No Do you feel safe in your current relationship?: Yes Do you have thoughts of harming others: None Do you have a plan to hurt others: No Plan Patient : No service: No Current occupational status: unemployed Review of Systems Const Denies weight gain and Denies weight loss ENT Reports no additional complaints, Denies dysphagia and Denies odynophagia Card Reports no additional complaints Resp Reports no additional complaints GI Reports abdominal pain (Epigastric, occasional), Denies belching, Denies melena, Reports bloating, Reports constipation, Denies dysphagia, Denies excessive flatus, Denies dyspepsia, Reports heartburn (Occasional), Denies diarrhea, Reports loose stools, Denies nausea, Denies odynophagia and Denies vomiting Reports no additional complaints Musc Reports no additional complaints Neuro Reports no additional complaints Psych Reports no additional complaints Endo Reports no additional complaints Physical Exam Vital Signs: Last Vital Signs Pulse 62 05/16/24 11:43 BP 136/66 05/16/24 11:43 Pulse Ox 99 05/16/24 11:43 Oxygen Delivery Method Room Air 05/16/24 11:43 BMI result Body Mass Index 26.7 Const General: comfortable and no acute distress Nutritional Appearance: average body habitus Orientation/consciousness: patient oriented x3 Resp Effort & Inspection: normal respiratory effort, able to speak in complete sentences, no tracheal deviation and symmetric chest movement Auscultation: clear to auscultation bilaterally Cardio Rate: regular rate GI Inspection: Yes normal to inspection and No distended Palpation (GI): Soft to palpation, not firm, nontender and No hepatosplenomegaly present Auscultation: normal bowel sounds General: Yes no CVA tenderness Back/Spine/Pelvis Back: no CVA tenderness Skin General skin exam: elasticity normal, turgor normal and dry skin Neuro General: patient oriented x3 Psych Appearance: grossly normal Mental Status: mental status grossly normal Results Reviewed Results Reviewed: HIDA SCAN FINDINGS: There is normal hepatic uptake with no focal defects seen. CBD and small bowel is visualized at the same time by 10 minutes. Gallbladder is visualized by 30 minutes. Post-CCK the gallbladder ejection fraction at 10 minutes is 3%, at 20 minutes is 10% and and at 30 minutes is 11%. NM/NM hepatobiliary w pharm IMPRESSION: Dyskinetic gallbladder with the gallbladder ejection fraction of 11% at 30 minutes. Normal hepatic uptake. Patent cystic duct and patent CBD. Assessment & Plan Assessment & Plan (1) Biliary dyskinesia: Code(s): K82.8 - Other specified diseases of gallbladder Category: Medical (2) Postprandial epigastric pain: Code(s): R10.13 - Epigastric pain (3) Postprandial diarrhea: Code(s): K52.9 - Noninfective gastroenteritis and colitis, unspecified (4) GERD (gastroesophageal reflux disease): Code(s): K21.9 - Gastro-esophageal reflux disease without esophagitis Qualifiers: Esophagitis presence: esophagitis presence not specified Qualified Code(s): K21.9 - Gastro-esophageal reflux disease without esophagitis (5) Abdominal bloating: Code(s): R14.0 - Abdominal distension (gaseous) (6) Constipation: Code(s): K59.00 - Constipation, unspecified Qualifiers: Constipation type: slow transit constipation Qualified Code(s): K59.01 - Slow transit constipation Plan Patient will continue taking pantoprazole in the morning half an hour before breakfast, famotidine at bedtime. Avoid dietary triggers in late night snacking. Staying upright for minimum 3 hours after meals discussed with patient. Patient was encouraged to avoid foods high in fat. Currently patient has no right upper quadrant pain postprandially. Patient decided to hold off on surgery. Right now she is feeling well and does not want to go under anesthesia to go for endoscopy. Patient reports that her symptoms of dysphagia went away. Feels like things are pretty well controlled for now. Patient however reports occasional constipation. Patient can start taking Senokot daily. Increase fluid intake and activity to promote better bowel motility. Follow-up in 3 months, sooner on as needed basis. She is agreeable to this plan and verbalizes understanding of instructions. Both patient and her granddaughter were given the opportunity to ask questions and all questions answered. Thank you for allowing me to participate in her care Medications: New sennosides (Natural Senna Laxative) 8.6 mg PO BEDTIME 90 tabs 3RF constipation K59.00 - Constipation, unspecified Coding Level of Care Code Est Pt Level 4 (74638) Complex EM visit Add On G2211 Diagnoses Biliary dyskinesia K82.8 Postprandial epigastric pain R10.13 Postprandial diarrhea K52.9 Gastroesophageal reflux disease, unspecified whether esophagitis present K21.9 Esophagitis presence: esophagitis presence not specified Abdominal bloating R14.0 Slow transit constipation K59.01 Constipation type: slow transit constipation Time Spent (min) 40 Comment 25 minutes spent with patient and additional 15 minutes spent reviewing her records
[2024-05-16 11:43] VITALS: BP 136/66; PULSE 62; O2SAT 99; BMI 26.7
--- OUTSIDE RECORDS SUMMARY | 2024-05-16 13:55 | XMS_ITS | Encounter Summary ---
Author Organization [employer] Address [address] [facility] [address] [place] [address] Care Team Providers Care Binding Machine Operator Name Role Phone Hue Meza MD Primary Care Pro vider Reason for Visit * Reason Comments Med Refill Encounter Details Date Type Department Care Team (Late st Contact Info) Description 12/28/2022 Refill [facility] [address] [place] [address] Cecy Gonzalez FNP [address] [place] [address] Dept [place] [address] Dementia without behavioral disturbance, psychotic disturbance, mood [...] Care Team (Late st Contact Info) Description 06/02/2024 11:00 AM EDT Medication Management [facility] [address] [place] [address] [phone] Fely Bowens PharmD [address] [place] [address] [phone] documented as of this encounter Goals Goal Patient Goal Type Associated Problems Recent Progress Patient-Stated? Author Blood Pressure < 140/90 Blood Pressure 138/74(2023 11:08 AM EST) No Bboy Anand Hemoglobin A1c < 8 Result Component [...] documented as of this encounter Care Teams Binding Machine Operator Relationship Specialty Start Date End Date Hue Meza MD [address] [place] [address] [phone] PCP - General Internal Medicine 12/22/22 documented as of this encounter
--- OUTSIDE RECORDS SUMMARY | 2024-05-16 13:55 | XMS_ITS | Encounter Summary ---
Author Organization [employer] Address [address] [facility] [address] [place] [address] Care Team Providers Care Store Person Name Role Phone Hue Meza MD Primary Care Pro vider Reason for Visit * Reason Comments Med Refill Encounter Details Date Type Department Care Team (Late st Contact Info) Description 01/24/2023 Refill [facility] [address] [place] [address] Hue Meza MD [address] [place], [place] [phone] Closed fracture dislocation of lumbar spine, sequela [...] Description 06/02/2024 11:00 AM EDT Medication Management [facility] [address] [place] [address] Fely Bowens, BessyD [address] [place] [address] documented as of this encounter Goals Goal [...] documented as of this encounter Care Teams Store Person Relationship Specialty Start Date End Date Hue Meza MD [address] [place] [address] PCP - General Internal Medicine 12/22/22 documented as of this encounter
--- OUTSIDE RECORDS SUMMARY | 2024-05-16 13:55 | XMS_ITS | Encounter Summary ---
Author Organization [facility] Address [address] [place] [address] [address] [place] [address] Care Team Providers Care Retoucher Name Role Phone Cash Arevalo MD Primary Care Provider Cecy Stephen [facility] Primary Care Provider [phone]- [phone] Cecy Gonzalez [facility] Primary Care Provider [phone]- [phone] Hue Meza MD Primary Care Pro vider Encounter Details Date Type Department Care Team (Late st Contact Info) Description 03/23/2022 Telephone [facility] [address] [place] [address] [phone] Cash Arevalo MD Social History Tobacco Use [...] Description 06/02/2024 11:00 AM EDT Medication Management [facility] [address] [place], [place] [phone] Fely Bowens, Jamie [address] [place] [address] documented as of this encounter Visit Diagnoses Not on filedocumented in this encounter Care Teams Retoucher Relationship Specialty Start Date End Date Cash Arevalo MD PCP - General Family Medicine 01/29/19 03/23/22 Cecy Gonzalez FNP PCP - General Family Medicine 03/24/22 08/21/22 Cecy Gonzalez FNP PCP - General Family Medicine 08/22/22 12/21/22 Hue Meza MD [address] [place] [id number] PCP - General Internal Medicine 12/22/22 documented as of this encounter
--- OUTSIDE RECORDS SUMMARY | 2024-05-16 13:55 | XMS_ITS | Clinical Summary ---
Author Organization [employer] Address [address] [facility] 7[address] [place] [address] Care Team Providers Care Barrel Washer Name Role Phone Hue Meza MD Primary Care Pro vider Allergies Active Allergy Reactions Criticality Noted Date Comments Losartan Cough 10/17/2023 Medications methIMAzole (Tapazole) 10 MG tablet Take 1 tablet by mouth 3 times daily. 3 Active Fluticasone-Salm eterol 500-50 MCG/ACT aerosol powder Take 1 Inhalation by mouth 2 times daily. 3 Active Incruse Ellipta 62.5 MCG/ACT aerosol powder Take 1 Inhalation by mouth Once daily. 3 Active donepezil (Aricept) 10 MG tabletIndication s:Dementia without behavioral disturbance, psychotic disturbance, mood disturbance, or anxiety, unspecified dementia severity, unspecified dementia type ([facility]) TAKE 1 TABLET BY MOUTH AT BEDTIME 28 tablet 3 3 Active Ventolin HFA 108 (90 Base) MCG/ACT inhaler INHALE 2 PUFFS BY MOUTH EVERY 4 TO 6 HOURS NEEDED 18 g 2 3 Active Blood Pressure Monitor kitIndications:A nnual physical exam 1 kit in the morning. 1 kit 3 Active glucose blood (FREESTYLE LITE) test stripIndications :Type 2 diabetes mellitus with other specified complication, unspecified whether chcf insulin use (CMS/HCC) TEST BLOOD SUGAR 3 TIMES A DAY 100 strip 11 4 Active Fiber-Lax 625 MG tablet Take 625 mg by mouth Once per day. 4 Active alendronate (Fosamax) 70 MG tablet Take 1 tablet (70 mg) by mouth every 7 (seven) days. Take in the morning with a full glass of water, on an empty stomach, and do not take anything else by mouth or lie down for the next 30 min. 4 tablet 11 4 08/16/19 25 Active celecoxib (CeleBREX) 200 MG capsule Take 1 capsule (200 mg) by mouth if needed in the morning and at bedtime for mild pain. Please put outside box 60 capsule 4 Active Additional Information Patient not taking.Reported on 02/05/2024 glucose blood (FreeStyle Precision Feroz Test) test stripIndications :Type 2 diabetes mellitus with other specified complication, with long-term current use of insulin ([facility]) Test blood sugar q 8 hours 100 each 12 4 Active Continuous Glucose Hand Box Coverer (FreeStyle Wilmar 3 Edroy) device 1 each Once per day. 1 each 4 Active Calcium Carbonate-Vit D-Min (Calcium-Vitamin D-Minerals) 600-800 MG-UNIT chewable tablet Chew 1 tablet with breakfast and with evening meal. 180 tablet 3 4 Active FLUoxetine (PROzac) 10 MG capsule TAKE 1 CAPSULE BY MOUTH EVERY MORNING 90 capsule 1 4 Active furosemide (Lasix) 20 MG tabletIndication s:Chronic diastolic (congestive) heart failure (CMS/HCC) TAKE 1 TABLET BY MOUTH EVERY MORNING 90 tablet 1 4 Active pyridoxine (Vitamin B-6) 50 MG tablet TAKE 1 TABLET BY MOUTH EVERY MORNING 90 tablet 1 4 Active gabapentin (Neurontin) 300 MG capsuleIndicatio ns:Neuropathy TAKE 1 CAPSULE BY MOUTH AT BEDTIME 30 capsule 5 4 Active pantoprazole (ProtoNix) 40 MG EC tablet TAKE 1 TABLET BY MOUTH EVERY MORNING 30 MINUTES BEFORE BREAKFAST 4 Active SITagliptin (Januvia) 100 MG tabletIndication s:Type 2 diabetes mellitus with diabetic polyneuropathy, with long-term current use of insulin ([facility]) Take 1 tablet (100 mg) by mouth Once per day. 90 tablet 3 4 12/24/19 25 Active Aspirin Low Dose 81 MG EC tabletIndication s:Atherosclerosi s of coronary artery of [place] heart, unspecified vessel or lesion type, unspecified whether angina present TAKE 1 TABLET BY MOUTH EVERY MORNING 90 tablet 1 4 Active atorvastatin (Lipitor) 40 MG tablet TAKE 1 TABLET BY MOUTH EVERY MORNING 90 tablet 1 4 Active amLODIPine (Norvasc) 5 MG tablet TAKE 1 TABLET BY MOUTH EVERY EVENING 90 tablet 4 Active lidocaine (Lidoderm) 5 % patchIndications :Closed fracture dislocation of lumbar spine, sequela Apply 1 patch topically Once per day. Remove & discard patch within 12 hours or as directed by MD. 30 patch 2 4 Active Diclofenac Sodium (Voltaren) 1 % gel Apply 2 g topically if needed in the morning and at bedtime (muscle pain). 100 g 3 4 Active cyanocobalamin (Vitamin B-12) 500 MCG tablet Take 1 tablet (500 mcg) by mouth 3 (three) times a week. 90 tablet 4 Active insulin glargine (Lantus SoloStar) 100 UNIT/ML penIndications:T ype 2 diabetes mellitus without complication, with long-term current use of insulin ([facility]) Inject 20 Units under the skin at bedtime. 15 mL 5 4 02/11/20 25 Active famotidine (Pepcid) 20 MG tablet TAKE 1 TABLET BY MOUTH EVERY MORNING 90 tablet 4 Active Continuous Glucose Sensor (FreeStyle Wilmar 3 Sensor) miscIndications: Type 2 diabetes mellitus with diabetic polyneuropathy, with long-term current use of insulin ([facility]) USE DIRECTED TO TEST BLOOD SUGAR CHANGE EVERY 14 DAYS 2 each 3 4 Active TRUEplus Lancets 33G misc TEST BLOOD SUGAR THREE TIMES DAILY 100 each 11 4 Active Easy Touch Pen [place] 31G X 8 MM misc USE ONCE DAILY WITH LANTUS 100 each 11 4 Active melatonin 5 MG tablet TAKE 1 TABLET BY MOUTH AT BEDTIME NEEDED FOR SLEEP 30 tablet 2 5 Active carvedilol (Coreg) 3.125 MG tabletIndication s:Essential hypertension TAKE 1 TABLET BY MOUTH TWICE DAILY IN THE MORNING AND IN THE EVENING WITH FOOD 60 tablet 3 5 Active Active Problems Problem Noted Date Diagnosed Date Biliary dyskinesia 04/22/2024 Overview (04/22/2024): S/p HIDA scan w/ gen surg. Diagnosed by general surgery Dr. Canada. May benefit from cholecystectomy, however per note from general surgery 04/22/2024 The patient is not interested in surgery due to her multiple medical problems which is certainly reasonable. No surgical intervention is recommended at this time. She should follow up as needed. Chronic diarrhea 08/17/2023 Abdominal pain 08/17/2023 Abnormal [...] contacted yet for f/u by TB clinic [facility] Assessment & Plan (12/21/2022 11:17 AM EDT): Provider called [facility] TB during visit requesting status of appt. No answer Also gave family phone number to call [facility] TB directly RTC if cough worsens F/u [...] Last Dental Exam: N, referral sent to [facility] Dental 07/2023 Assessment & Plan (11/05/2023 12:20 [...] contacted yet for f/u by TB clinic [facility] Provider called [facility] TB during visit requesting status of appt. No answer Also gave family phone number to call [facility] TB directly RTC if cough worsens F/u PRN Assessment & Plan (11/02/2022 6:31 PM EDT): Wheezing noted exam Recommended SANTOS use PRN F/u PRN Obstructive sleep apnea syndrome 10/13/2014 Gastroparesis 12/10/2013 Osteopenia 09/24/2012 Hyperlipidemia 06/27/2012 Atherosclerosis of coronary artery of [place] heart with other form of angina pectoris, unspecified vessel or lesion type 06/18/2012 Assessment & Plan (12/21/2022 11:13 AM EDT): Refill aspirin for medbox program F/u PRN Diabetic polyneuropathy 06/18/2012 Resolved Problems Problem Noted Date Diagnosed Date Resolved Date Chronic cough 08/17/2023 10/17/2023 Encounters Date Type Department Care Team Description 04/16/2024 Refill [facility] MED & PEDS [address] [place], [place] [phone] Hue Meza MD Essential hypertension 03/25/2024 Orders Only GENERIC EXTERNAL DATA DEPARTMENT Provider, Generic External Data 03/21/2024 Refill [facility] MEDICINE [address] [place] [address] Hue Meza MD 02/29/2024 Telephone [facility] [address] [place] [address] Hue Meza MD 02/27/2024 Refill [facility] [address] [place] [address] Hue Meza MD 02/23/2024 Refill [facility] [address] [place], [place] [phone] Racheal Mcclain, PharmD Type 2 diabetes mellitus with diabetic polyneuropathy, with long-term current use of insulin ([facility]) 02/21/2024 Refill [facility] [address] [place] [address] Hue Meza MD from Last 3 Months [...] Description 06/02/2024 11:00 AM EDT Medication Management [facility] [address] [place] [address] Fely Bowens, PharmD [address] [place] [address] Health Maintenance Due Date Last Done Comments [...] AUTO DIFFERENTIAL Routine 03/25/2024 10:58 AM EST ALBUMIN, RANDOM URINE W/CREATININE Routine 02/05/2024 10:33 [...] EST Narrative 04/04/2024 2:19 PM EST ? [facility] ?[address] ?[place] [address] ?Nuclear Medicine Report ? Signed ? Patient: Leigh Ann Russell,Gisell ?MR#: ?? [id number] ? : 1945 ?Acct:[id number] ? Age/Sex: 78 / F ?ADM Date: 01/17/25 ? Loc: HO.NUCMED ? Attending Dr: Dano Canada MD ? Ordering Physician: Dano Canada MD ?? Date of Service: 04/04/24 ?? Procedure(s): NM hepatobiliary w pharm ?? Accession Number(s): [id number] ? cc: Dano Canada MD; Hue Meza [...] DD/ 1026 ? TD/TT: 04/04/24 1240 ? Assistant Press Operator: MSM ? Procedure Note Byron Saul - 04/04/[address] [address] Nuclear Medicine Report Signed Patient: Hue Murphy DMR#: [id number] : 6Acct:[id number] Age/Sex: 78 / FADM Date: 04/04/24 Loc: [facility] Attending Dr: Dano Canada MD Ordering Physician: Dano Canada MD Date of Service: 04/04/24 Procedure(s): NM hepatobiliary w pharm Accession Number(s): [id number] cc: Dano Canada MD; Hue Meza MD EXAMINATION: ID BILIARY TRACT CLINICAL INFORMATION: Right upper quadrant [...] and and at 30 minutes is 11%. ID/ID hepatobiliary w pharm IMPRESSION: Dyskinetic gallbladder with the gallbladder ejection fraction of 11% at 30 minutes. Normal hepatic uptake. Patent cystic duct and patent CBD. Electronically signed by: Kojo Dewey MD 04/04/2024 02:14 PM EST Dictated By: Kojo Dewey MD Signed By: <Electronically signed by Kojo Dewey MD in OV> 04/04/24 1414 DD/ 1026 TD/TT: 04/04/24 1240 Assistant Press Operator: SAEED [facility] External Provider IMG NM PROCEDURES Edited Result - Final * (ABNORMAL) CBC auto differential (03/25/2024 10:58 AM EST) White Blood Count 11.3(H) 4.8 - 10.8 X10*3/uL [facility] Red Blood Count 3.86(L) 4.20 - 5.50 X10*6/uL [facility] Hemoglobin 11.2(L) 12.0 - 16.0 g/dl [facility] Hematocrit 35.1(L) 37.0 - 47.0 % [facility] Mean Corpuscular Volume 90.9 80.0 - 98.0 fL [facility] Mean Corpuscular Hemoglobin 29.0 27.0 - 33.0 pg [facility] Mean Corpuscular HGB Conc 31.9 31.0 - 35.0 g/dl [facility] Red Cell Distribution Width 13.5 11.0 - 16.0 % [facility] Platelet Count 253 160 - 400 X10*3/uL [facility] Mean Platelet Volume 11.1 9.4 - 12.3 fL [facility] Neutrophils Percent Auto 52.1 45 - 73 % [facility] Imm Gran Pct Auto 0.4 0.0 - 0.4 % [facility] Lymphocytes Percent Auto 26.6 20 - 40 % [facility] Monocytes Percent Auto 12.6(H) 2 - 11 % [facility] Eosinophils Percent Auto 7.6(H) 0 - 4 % [facility] Basophils Percent Auto 0.7 0 - 2 % [facility] NRBC Pct Auto 0.0 0.0 - 0.2 /100WBC [facility] Neutrophils Absolute Auto 5.9 2.0 - 8.3 x10*3/uL [facility] Imm Gran Abs Auto 0.04(H) 0.00 - 0.03 X10*3/uL [facility] Lymphocytes Absolute Auto 3.0 1.2 - 4.9 X10*3/uL [facility] Monocytes Absolute Auto 1.4(H) 0.1 - 1.2 X10*3/uL [facility] Eosinophils Absolute Auto 0.9(H) 0.0 - 0.4 X10*3/uL [facility] Basophils Absolute Auto 0.1 0.0 - 0.2 X10*3/uL [facility] NRBC Abs Auto 0.000 0.0 - 0.012 X10*3/uL [facility] 03/25/2024 10:5 8 AM EST 03/25/2024 10:58 AM EST Generic External Data Provider LAB BLOOD ORDERAB LES Final Result Performing Organization Address [facility] de Phone Number [facility] [address] [place] [phone] * (ABNORMAL) Sed Rate by Modified Daniloergren (03/25/2024 10:58 AM EST) Pathologist [facility] Erythrocyte Sedimentation Rate 39(H) 0 - 20 MM/HR [facility] Comment:Patients with polycy themia and many hemoglobin abnormalitiesmay have depressed sed rates whereas patients with anemiamay have elevated sed rates. 03/25/2024 10:5 8 AM EST 03/25/2024 10:58 AM EST Generic External Data Provider LAB BLOOD ORDERAB LES Final Result Performing Organization Address [facility] Phone Number [facility] [address] [place] [phone] * (ABNORMAL) C-reactive Protein (03/25/2024 10:58 AM EST) [facility] C Reactive Protein 3.49(H) < or = 0.50 mg/dL [facility] 03/25/2024 10:5 8 AM EST 03/25/2024 10:58 AM EST Generic External Data Provider LAB BLOOD ORDERAB LES Final Result Performing Organization Address [facility] de Phone Number [facility] [address] [place] [phone] * (ABNORMAL) Comprehensive Metabolic Panel (03/25/2024 10:58 AM EST) Pathologist [facility] Sodium 142 135 - 145 mmol/L [facility] Potassium 3.6 3.3 - 5.1 mmol/L [facility] Chloride 110(H) 96 - 108 mmol/L [facility] Carbon Dioxide 26 22 - 29 mmol/L [facility] Anion Gap 10(L) 12 - 20 [facility] Urea Nitrogen (BUN) 20(H) 9 - 16 mg/dL [facility] Creatinine, Serum 1.15 0.5 - 1.4 mg/dL [facility] Estimated Glomerular Filt Rate 46 [facility] Comment:Chronic Kidney Disea se: Estimated GFR < 60 mL/min/[id number] Kidney Disease: Estimated GFR < 15 mL/min/1.73m2 Glucose 169(H) 60 - 115 mg/dL [facility] Calcium 9.1 8.4 - 10.2 mg/dL [facility] Bilirubin, Total 0.5 0.0 - 1.0 mg/dL [facility] Aspartate Amino Transferase 30 5 - 31 U/L [facility] Alanine Aminotransferase 28 0 - 31 U/L [facility] Total Protein 8.1(H) 6.5 - 8.0 g/dL [facility] Albumin Level 4.1 3.5 - 5.0 g/dL [facility] Alkaline Phosphatase 92 39 - 117 U/L [facility] 03/25/2024 10:5 8 AM EST 03/25/2024 10:58 AM EST us Generic External Data Provider LAB BLOOD ORDERAB LES Final Result [facility] [address] [place] [phone] * Albumin, Random Urine W/Creatinine (02/05/2024 10:33 AM EST) Creatinine, Urine 280.14 mg/dL [facility] Microalbumin Urine 28.0 mg/L [facility] Microalbum Creatinine Ratio Ur 9.9 <30 ug/mg cr [facility] Comment:Albumin/Creatinine R atio Reference Ranges: Normal: < 30 ug/mg creatinine Microalbuminuria: 30 - 300 ug/mg creatinineClinical Albuminuria: > 300 ug/mg creatinine Urine (Urine, Random) 02/05/2024 10:33 AM EST 02/05/2024 1:08 PM EST us Hue Lopez MD LAB URINE ORDERAB LES Final Result Performing Organization Address [facility] Co de Phone Number [facility] [address] [place] [phone] * (ABNORMAL) Hemoglobin A1c (02/05/2024 10:33 AM EST) Hemoglobin A1c 7.7(H) <6.0 % [facility] Comment:Hemoglobin A1C Refer ence Range Adults: 4.8 - 6.0 % Non diabetic: < 6.0 % Goal: < 7.0 %Additional Action Suggested: > 8.0 %Note: Hemoglobin A1c results are invalid for patients with abnormal amounts of HbF. Blood transfusions may impact the HbA1c concentration in the patient sample. Estimated Average Glucose 174 mg/dL [facility] Comment:eAG = Estimated ave rage glucose which is %A1C expressed asaverage glucose, using the formula of the [id number]-NwlxkjeUkisnxd Glucose study (ADAG), Diabetes Care, Vol.31,#8,Oct. 2007 Blood Venous blood specimen / Unknown 02/05/2024 10:33 AM EST 02/05/2024 1:08 PM EST us Hue Lpoez MD LAB BLOOD ORDERAB LES Final Result Performing Organization Address City/[facility]/ZIP Co de Phone Number [facility] [address] [place] [phone] * Lipid Panel, Standard (02/05/2024 10:33 AM EST) Triglycerides 60 <150 mg/dL [facility] Comment:Desirable Triglyceri de: less than 150 mg/dLBorderline High Triglyceride 150-199 mg/dLHigh Triglyceride: 200-499 mg/dLVery High Triglyceride: greater than or equal to 5OO mg/dL Cholesterol 164 <200 mg/dL [facility] Comment:Desirable Cholestero l: less than 200 mg/dLBorderline High Cholesterol: 200-239 mg/dLHigh Cholesterol: greater than 239 mg/dL LDL Cholesterol Calculated 82 <100 mg/dL [facility] Comment:Desirable LDL: less than 100 mg/dLNear Optimal/Above Optimal LDL: 110- 129 mg/dLBorderline High LDL: 130-159 mg/dLHigh LDL: 160-189 mg/dLVery High LDL: greater than or equal to 190 mg/dL HDL Cholesterol 70 >40 mg/dL [facility] Comment:Desirable HDL: great er than 40 mg/dL Note: This HDL assay may give artificially low results in patients with liver disease. Blood Venous blood specimen / Unknown 02/05/2024 10:33 AM EST 02/05/2024 1:08 PM EST us Hue Lopez MD LAB BLOOD ORDERAB LES Final Result Performing Organization Address [facility] Co de Phone Number [facility] [address] [place] [phone] * Hepatitis C Antibody with Reflex to HCV, RNA, Quantitative, Real-Time PCR (03/20/2023 1:23 PM EST) Hepatitis C Antibody Nonreactive Nonreactive [facility] Comment:Antibodies to HCV no t detected; does not exclude early acuteHCV infection. Blood Venous blood specimen / Unknown 03/20/2023 1:23 PM EST 03/20/2023 1:23 PM EST us Hue Lopez MD LAB BLOOD ORDERAB LES Final Result Performing Organization Address [facility] Co de Phone Number [facility] [address] [place], [place] [phone] from Last 3 Months or Most Recently Relevant to Health Maintenance Insurance [facility] Care Teams Barrel Washer Relationship Specialty Start Date End Date Hue Meza MD [address] [place] [phone] PCP - General Internal Medicine 12/22/22
--- OUTSIDE RECORDS SUMMARY | 2024-05-16 13:55 | XMS_ITS | Encounter Summary ---
Author Organization [employer] Address [address] [facility] 7t [place] [address] Care Team Providers Care Electric Cutter Operator Name Role Phone Hue Meza MD Primary Care Pro vider Reason for Visit * Reason Comments Med Refill Encounter Details Date Type Department Care Team (Late st Contact Info) Description 12/06/2023 Refill [facility] MED[facility] [address] [place] [address] Racheal Mcclain, PharmD [address] [place] [address] Social History Tobacco Use Types Packs/Day Years [...] Description 06/02/2024 11:00 AM EDT Medication Management [facility] [address] [place] [address] Fely Bowens, PharmD [address] [place] [address] documented as of this encounter Goals Goal [...] documented as of this encounter Care Teams Electric Cutter Operator Relationship Specialty Start Date End Date Hue Meza MD [address] [place] [address] PCP - General Internal Medicine 12/22/22 documented as of this encounter
--- OUTSIDE RECORDS SUMMARY | 2024-05-16 13:55 | XMS_ITS | Encounter Summary ---
Author Organization [employer] Address [address] [place] [address] [address] [place] [address] Care Team Providers Care Professional Fighter Name Role Phone Cecy Gonzalez Primary Care Provider [phone] Cecy Gonzalez [employer] Primary Care Provider [phone] Hue Meza MD Primary Care Pro vider Encounter Details Date Type Department Care Team (Late st Contact Info) Description 05/15/2022 Orders Only [facility] MED & PEDS [address] [place], [place] [phone] Lindsey Ascencio LPN Social History Tobacco Use Types Packs/Day [...] Description 06/02/2024 11:00 AM EDT Medication Management [facility] MEDICINE [address] [place] [address] Fely Bowens, PharmD [address] [place] [address] documented as of this encounter Procedures Procedure Name Priority Date/Time Associated Diagnosis Comments T4, FREE Routine 11/02/2022 2:27 PM EDT documented in this encounter Results * T4, Free (11/02/2022 2:27 PM EDT) Free T4 (Free Thyroxine) 1.72 0.71 - 1.85 ng/dL [facility] 11/02/2022 2:27 PM EDT 11/02/2022 4:03 PM EDT Cecy ALBARRAN LAB BLOOD ORDERABLES Final Result [facility] [address] [place] [address] [phone] documented in this encounter Visit Diagnoses Not on filedocumented in this encounter Care Teams Professional Fighter Relationship Specialty Start Date End Date Cecy Gonzalez FNP PCP - General Family Medicine 03/24/22 08/21/22 Cecy Gonzalez FNP PCP - General Family Medicine 08/22/22 12/21/22 Hue Meza MD [address] [place] [address] PCP - General Internal Medicine 12/22/22 documented as of this encounter
--- OUTSIDE RECORDS SUMMARY | 2024-05-16 13:55 | XMS_ITS | Encounter Summary ---
Author Organization [employer] Address [address] [facility] 7t [place] [address] Care Team Providers Care Assembler 1St Shift Name Role Phone Hue Meza MD Primary Care Pro vider Reason for Visit * Reason Comments Med Refill Encounter Details Date Type Department Care Team (Late st Contact Info) Description 04/16/2024 Refill [facility] [address] [place], [place] [phone] Hue Meza MD [address] [place], [place] [phone] Essential hypertension Social History Tobacco Use Types [...] Description 06/02/2024 11:00 AM EDT Medication Management [facility] [address] [place] [address] Fely Bowens, PharmD [address] [place] [address] documented as of this encounter Goals Goal [...] documented as of this encounter Care Teams Assembler 1St Shift Relationship Specialty Start Date End Date Hue Meza MD [address] [place] [address] PCP - General Internal Medicine 12/22/22 documented as of this encounter
--- OUTSIDE RECORDS SUMMARY | 2024-05-16 13:55 | XMS_ITS | Data Portability ---
Author Organization [employer] [facility], [place] - [facility] Address [address] [place] [id number] Care Team Providers Care Trimming Department Blocker Name Role Phone [facility] Referring Provider [phone] [facility] Referring Provider Assessment Encounter Date Assessment Date Assessment LastModified by Organization Details LastModified Time 07/13/2021 07/13/2021 I have reviewed and agree with the Assessment and Plan as documented by the Clothing Room Supervisor. I provided real -time medical direction via phone for this encounter, and was available for additional phone based assistance as needed. Patient given the opportunity to ask questions. [email or web address] Not available 07/13/2021 19:23:03 Plan of Treatment Reminders Order Date Submit Date Provider Last Modified By Organization Details Last Modified Time Details Appointments None recorded. Lab rapid flu (A+B) 2021 022 [email or web address] 0 [facility], [address] [place] [address], [phone], 18:48:47 glucose, fingerstick , blood 2021 022 [email or web address], [phone], 18:48:46 rapid SARS CoV 2 Ag, QL [place], respiratory specimen 2021 022 [email or web address] [address], [phone], 18:48:46 Referral None recorded. Procedures None recorded. Surgeries None recorded. Imaging None recorded. Medication Orders prednisone 20 mg tablet 2021 022 [email or web address] 0 Not available 18:48:46 prednisone 20 mg tablet 2021 022 [facility], [address] [facility], [place], [place], [id number], 19:01:03 Patient TargetsNo targets recorded. Patient InstructionsNo instructions recorded. Reason for Referral None Reported. Results Created Date Observation Date Name Description Value Unit Range Abnormal Flag Note LastModifiedBy Organization Detail LastModifiedTime 07/14/19 22 07/13/2021 gluco se, finge rstic k, blood Blood Glucose: mg/dl 138 Not Available Main - [facility] [address] [place] [address], [id number], 07/13/2021 18:41:35 07/14/19 22 07/13/2021 rapid SARS CoV 2 Ag, QL IA, respi rator y speci men rapid SARS CoV 2 Ag, QL [place], respiratory specimen negati ve Not Available Main - [facility] [address] [place] [address], [phone], 07/13/2021 18:41:44 07/14/19 22 07/13/2021 rapid flu (A+B) Flu negati ve Not Available Main - [facility] [address] [place] [address], [phone], 07/13/2021 18:41:29 Result Notes None recorded. Medical [...] Address Organization Details Last Updated DateTime 07/13/2021 31623.93 g Jagdish Clinton [address] [place] [address],[address], [place], [address], [place] - [employer] 07/13/2021 19:21:29 Date Recorded Respiratory rate Heart [...] /min 98.6 [degF] 97 % 97 % 37240.8 8 g 98.6 [degF] 24 /min 97 [...] Note 1225 Larisa Shaver MD Main - [employer] [address] [place] [phone] 07/13/2021 18:37:50 11/24/2021 18:09:23 Acute exacerbation of chronic obstructive pulmonary disease [id number] J44.1 pat advised can use nebs (albuterol [...] Clark Member ID Guarantor Name 07/13/2021 1 [facility] - DOS PRIOR TO 2022 - DUAL ELIGIBLE (MEDICARE REPLACEMENT/ADV ANTAGE - HMO) Hue Russell [id number] Hue Russell Notes Date Note Type Note [...] ..................... ..................... ..................... ..................... ..................... ..................... ............... Clothing Room Supervisor Note: Evaluated pt with assistance from liner machine operator, c/o sob/guillermo. Upon arrival, pt is awake [...] taking her own neb treatment and consulted [facility]. [facility] ordered q4 neb treatments, plenty of fluid intake, 40mg of PO prednisone to be dispensed now with a script to be sent to pharmacy. [facility] detailed treatment plan with request that pt f/u with pcp <48 hours. Went over red flags and no further questions or concerns at this time. ..................... ..................... ..................... ..................... ..................... ..................... ............... Disposition: Fulfilled Larisa Shaver MD [address] [facility],[address], [place], [address], [place] - [employer] 07/13/2021 19:26:34 OBGyn Episode No OBEpisode recorded.
--- OUTSIDE RECORDS SUMMARY | 2024-05-16 13:55 | XMS_ITS | Encounter Summary ---
Author Organization [employer] Address [address] [place] [address] 7 [place] [address] Care Team Providers Care Movie Projectionist Name Role Phone Cecy Gonzalez Primary Care Provider +1- [phone] Hue Meza MD Primary Care Pro vider Reason for Visit * Reason Onset Date Comments Hospital Follow-up 10/26/2022 Encounter Details Date Type Department Care Team (Late st Contact Info) Description 10/26/2022 Telephone [facility] [address] [place] [address] Cecy Gonzalez FNP [address] [place] [address] Dept [place] [address] Hospital Follow-up Social History Tobacco Use Types [...] 12:16 PM EDT Tc from Hue at [facility] Tc from pt requesting a [facility] appt. Pt was admitted at [facility] on 10/22/22 and discharged on 10/25/22. Pt wasdiagnosed with small fracture on the spine Please call pts granddaughter Irma at [phone] documented in this encounter Plan of Treatment Upcoming Encounters Date Type Department Care Team (Late st Contact Info) Description 06/02/2024 11:00 AM EDT Medication Management [facility] [address] [place], [place] [phone] Fely Bowens, Jamie [address] [place], [place] [phone] documented as of this encounter Visit Diagnoses Not on filedocumented in this encounter Care Teams Movie Projectionist Relationship Specialty Start Date End Date Cecy Gonzalez FNP PCP - General Family Medicine 08/22/22 12/21/22 Hue Meza MD [address] [place], [place] [phone] PCP - General Internal Medicine 12/22/22 documented as of this encounter
--- OUTSIDE RECORDS SUMMARY | 2024-05-16 13:55 | XMS_ITS | Encounter Summary ---
Author Organization [employer] [facility] Address [address] [place] [address] 7 [place] [address] Care Team Providers Care Tear Down Man Name Role Phone Ceyc Gonzalez Primary Care Provider +1- [phone] Hue Meza MD Primary Care Pro vider Reason for Visit * Reason Comments Med Refill Encounter Details Date Type Department Care Team (Late Contact Info) Description 12/12/2022 Refill [facility] [address] [place] [address] Cecy Gonzalez FNP [address] [place] [address] Dept [place] [address] Primary hypertension Social History Tobacco Use Types [...] Department Care Team (Late Contact Info) Description 06/02/2024 11:00 AM EDT Medication Management [facility] [address] [place], [place] [phone] Fely Bowens, Jamie [address] [place], [place] [phone] documented as of this encounter Goals Goal [...] documented as of this encounter Care Teams Tear Down Man Relationship Specialty Start Date End Date Cecy Gonzalez FNP PCP - General Family Medicine 08/22/22 12/21/22 Hue Meza MD [address] [place] [address] PCP - General Internal Medicine 12/22/22 documented as of this encounter
--- OUTSIDE RECORDS SUMMARY | 2024-05-16 13:55 | XMS_ITS | Encounter Summary ---
Author Organization [employer] [facility] Address [address] [place] [address] 7t [place] [address] Care Team Providers Care Histopath Tech Name Role Phone Cash Arevalo MD Primary Care Provider Cecy Stephen [facility] Primary Care Provider +1- [phone] Cecy Gonzalez [facility] Primary Care Provider +1- [phone] Hue Meza MD Primary Care Pro vider Reason for Visit * Reason Onset Date Comments transfer pt appt 03/23/2022 Encounter Details Date Type Department Care Team (Late st Contact Info) Description 03/23/2022 Telephone [facility] [address] [place] [address] Cash Arevlao MD transfer pt appt Social History Tobacco [...] Description 06/02/2024 11:00 AM EDT Medication Management [facility] [address] [place] [address] Fely Bowens, Jamie [address] [place], [place] [phone] documented as of this encounter Visit Diagnoses Not on filedocumented in this encounter Care Teams Histopath Tech Relationship Specialty Start Date End Date Cash Arevalo MD PCP - General Family Medicine 01/29/19 03/23/22 Cecy Gonzalez FNP PCP - General Family Medicine 03/24/22 08/21/22 Cecy Gonzalez FNP PCP - General Family Medicine 08/22/22 12/21/22 Hue Meza MD [address] [place] [address] PCP - General Internal Medicine 12/22/22 documented as of this encounter
== END 2024-05-16 12:25 | disposition home or self-care (01) ==
PROVIDERS: PCP Student in an Organized Health Care Education/Training Program; Visit Provider Nurse Practitioner Family
DX: K82.8 Other specified diseases of gallbladder (principal); R10.13 Epigastric pain; K52.9 Noninfective gastroenteritis and colitis, unspecified; K21.9 Gastro-esophageal reflux disease without esophagitis; R14.0 Abdominal distension (gaseous); K59.01 Slow transit constipation
CPT/HCPCS: 99214; G2211

== ENCOUNTER → 2024-05-16 11:35 | Outpatient (BNVA) | payer OTHER, SELFPAY | PROVIDERS: PCP Student in an Organized Health Care Education/Training Program; Visit Provider Nurse Practitioner Family | DX: R14.0 Abdominal distension (gaseous) (principal); K21.9 Gastro-esophageal reflux disease without esophagitis; K82.8 Other specified diseases of gallbladder; R10.13 Epigastric pain; K52.9 Noninfective gastroenteritis and colitis, unspecified; K59.01 Slow transit constipation; Z79.899 Other long term (current) drug therapy | CPT/HCPCS: 99212 ==

== ENCOUNTER 2024-07-17 11:51 | Outpatient (AMB) | payer OTHER, SELFPAY ==
[2024-07-17 11:54] VITALS: BP 142/82; PULSE 72; O2SAT 100; BMI 27.4
--- NOTE | 2024-07-17 11:54 | MHC.OFFVIS ---
Vital Signs 07/17/24 11:54 Height 4 ft 11 in Weight 135 lb 9.349 oz BMI 27.4 BP 142/82 H Pulse 72 Pulse Source Pulse Oximeter Pulse Oximetry (%) 100 Oxygen Delivery Method Room Air Intake Visit Reasons: follow up Intake Note: Patient presents for follow up on RA today. Patient does not feel like Humira is working for her. Club Manager Name: [id number] D. Allergies losartan Adverse Reaction (Mild, Verified 07/17/24 12:02) Cough Medication List - Last Reconciled 07/17/24 by Mima Black MD adalimumab (Humira(CF) Pen) 40 mg (0.4 mL) subcut Q2W albuterol sulfate 90 mcg/actuation (Ventolin HFA) 2 puffs inhalation Q4-6H PRN 30 days alendronate mg PO amlodipine 5 mg PO DAILY aspirin 81 mg PO BEDTIME atorvastatin 40 mg PO BEDTIME blood sugar diagnostic As directed blood-glucose sensor ([employer] [place] 3 Sensor device) As directed calcium carbonate-vitamin D3 600 mg-20 mcg (800 unit) 600 tabs PO DAILY carvedilol 3.125 mg PO BID cyanocobalamin (vitamin B-12) 1,000 mcg PO DAILY donepezil 10 mg PO DAILY famotidine mg PO DAILY fluoxetine 10 mg PO DAILY fluticasone propion-salmeterol 500-50 mcg/dose 1 ea PO BID fluticasone propionate 50 mcg/actuation 2 sprays intranasal DAILY furosemide 20 mg PO DAILY gabapentin 300 mg PO BEDTIME Incruse Ellipta 62.5 mcg/actuation (umeclidinium) 1 inh inhalation DAILY NS insulin glargine (Lantus Solostar U-100 Insulin) 100 units subcut DAILY lancets As directed lidocaine 5% 1 patch topical DAILY melatonin 5 mg PO BEDTIME PRN methimazole 10 mg PO BID pantoprazole 40 mg PO QAM pen needle, diabetic As directed pyridoxine (vitamin B6) 50 mg PO DAILY 30 days sennosides (Natural Senna Laxative) 8.6 mg PO BEDTIME sitagliptin phosphate (Januvia) 50 mg PO DAILY HPI Comments Details: Patient is a 78-year-old female with COPD, latent Tb, hypertension, hyperlipidemia, diabetes, osteopenia with a high FRAX score, and rheumatoid arthritis here today for follow up Interval History: Patient last seen 05/08/2024 with me. Time she was following up for her rheumatoid arthritis. She had recently started Enbrel with improvement in her joints but still had persistent swelling and synovitis on exam. Complained of bilateral shoulder pain and neck pain and received bilateral AC joint injections. Enbrel change to Humira Today patient is here with her granddaughter The shoulder injection only helped for a few days Changing to the humira did not help her joint much Rheumatologic History: ++RF+++CCP dx many years ago. Unknown previous DMARDs SSZ started 08/08 stopped due to transaminitis HCQ 07/2023 DC 10/2023 ineffective Enbrel 01/2024-04/2024 ineffective Humira 04/2024 Current Rheumatology Medication(s): Humira 40mg SC every other week [facility] Medical History Encounter for monitoring of adalimumab therapy Osteoarthritis of acromioclavicular joints, bilateral Latent tuberculosis Restrictive lung disease CAD (coronary artery disease) Asthma Allergic rhinitis COPD exacerbation COPD (chronic obstructive pulmonary disease) Cough Hypertension Diabetes Surgical History History of hysterectomy Hx of CABG Family History Mother Acute arthritis Social History Household Members: Family Housing: Apartment Do you presently have visiting nurse or other home services: Yes ([facility] and LOGISTICS LEAD) Alcohol intake: never Patient Tobacco Use Status: Never used Tobacco e-Cigarette/Vaping Use: Never Used Second Hand Smoke Exposure: No service: No Current occupational status: unemployed Review of Systems Const Details: Review of Systems Constitutional: Denies fever, chills, weight loss ENT: Denies vision changes, eye pain or eye redness, dental caries, dry mouth GI: Denies nausea, vomiting, diarrhea, abdominal pain, change in BM Pulm: Denies SOB, JOYA, hemoptysis, wheezing Cards: Denies chest pain, palpitations Skin: Denies Raynaud's, rash, nail changes, photosensitivity, HOMEBOUND TEACHER: Denies headaches, weakness, paresthesias, recurrent falls MSK: as per HPI All other systems reviewed and are unremarkable except noted above Physical Exam Vital Signs: Last Vital Signs Pulse 72 07/17/24 11:54 BP 142/82 H 07/17/24 11:54 Pulse Ox 100 07/17/24 11:54 Oxygen Delivery Method Room Air 07/17/24 11:54 BMI result Body Mass Index 27.4 Vital signs reviewed Physical Examination CONSTITUITIONAL Elderly female, frail in a wheel chair No communicative Granddaughter communicates for her using diplomatic interpreter MSK Hands: ?Not able to make a fist. Hands swollen and tender to touch MCPs and PIPs Wrists: ?Decreased ROM 2/2 pain Shoulders: TTP of bilateral shoulders, swelling noted to the supraclavicular recess bilaterally with TTP Knees: TTP bilaterally Patient is sitting in the wheel chair groaning in pain Results Reviewed Results Reviewed: Laboratory Tests 03/25/24 05/26/24 10:58 11:38 WBC 12.4 H RBC 4.23 Hgb 12.3 Hct 38.7 Plt Count 278 Sodium 145 Potassium 5.6 H D Chloride 111 H Carbon Dioxide 29 BUN 16 Creatinine 1.05 Total Bilirubin 0.5 AST 29 ALT 34 H Alkaline Phosphatase 109 C-Reactive Protein 3.49 H Total Protein 7.9 Laboratory Tests 03/20/23 13:23 Hep Bs Antigen Negative Hep Bs Antibody NONREACTIVE Hep B Core Total Ab Nonreactive Hepatitis C Ab (EIA) Nonreactive HIV 1&2 Ab/P24 Ag 4thGn Nonreactive Assessment & Plan Assessment & Plan (1) Rheumatoid arthritis: Comment: ++RF+++CCP dx many years ago. Unknown previous DMARDs SSZ started 08/08 stopped due to transaminitis HCQ 07/2023 DC 10/2023 ineffective Code(s): M06.9 - Rheumatoid arthritis, unspecified Category: Medical Qualifiers: Rheumatoid arthritis location: multiple sites Rheumatoid factor presence: with rheumatoid factor Qualified Code(s): M05.79 - Rheumatoid arthritis with rheumatoid factor of multiple sites without organ or systems involvement Plan: #Seropositive RA Patient is a 78-year-old female with seropositive rheumatoid arthritis. Currently in a flare of her disease despite Humira. We will transitioned to Actemra. No history of diverticulitis. Plan - Stop Humira - Prednisone: 20 mg for 14 days then 15 mg for 14 days then 10 mg for 14 days then 5 mg for 14 days and stop - Start Actemra 162mg SC every other week - Labs today: CBC, CMP, ESR, CRP, hepatitis panel - RTC 4 months (2) Restrictive lung disease: Comment: This patient has had previous chest surgery, has a long mid sternal scar. Pulmonary function test has shown moderately severe restrictive pulmonary disorder. This is mainly the reason for her shortness of breath on exertion. Code(s): J98.4 - Other disorders of lung Category: Medical Plan: #Restrictive lung disease Patient with severe restrictive lung disease. CT scan with no evidence of ILD. Unlikely to be related to her rheumatoid arthritis (3) Osteopenia: Code(s): M85.80 - Other specified disorders of bone density and structure, unspecified site Category: Medical Qualifiers: Osteopenia location: multiple sites Qualified Code(s): M85.89 - Other specified disorders of bone density and structure, multiple sites Plan: #Osteopenia with high FRAX score On alendronate We will hold off on DEXA until we can get her RA under control (4) Encounter for monitoring tocilizumab therapy: Code(s): Z51.81 - Encounter for therapeutic drug level monitoring; Z79.620 - termination clerk (current) use of immunosuppressive biologic Plan: #Long-term Use of Tocilizumab Discussed the risks and benefits of tocilizumab with the management of this patient's rheumatic condition. ? Benefits include decreased pain, improved mortality, improved quality of life Risks include LFT abnormalities, elevated triglycerides, GI perforations Contraindicated in a patient with history of diverticulitis Monitoring: ?CBC, CMP, triglycerides Plan I spent 42 minutes reviewing the record and labs, taking a history, examining the patient, discussing the treatment plan and documenting in the medical record Orders: Orders Lipid Panel Today M05.79 - Rheumatoid arthritis with rheumatoid factor of multiple sites without organ or systems involvement Erythrocyte Sedimentation Rate Today M05.79 - Rheumatoid arthritis with rheumatoid factor of multiple sites without organ or systems involvement Complete Blood Count Auto Diff Today M05.79 - Rheumatoid arthritis with rheumatoid factor of multiple sites without organ or systems involvement Comprehensive Met. Panel Today M05.79 - Rheumatoid arthritis with rheumatoid factor of multiple sites without organ or systems involvement C Reactive Protein Today M05.79 - Rheumatoid arthritis with rheumatoid factor of multiple sites without organ or systems involvement Hepatitis A,B,C Profile Today M05.79 - Rheumatoid arthritis with rheumatoid factor of multiple sites without organ or systems involvement Medications: New prednisone Take 4 pills for 2 weeks then 3 pills for 2 weeks then 2 pills for 2 weeks then 1 pill for 2 weeks then stop 5 mg PO DIRECTED 140 tabs 0RF M05.79 - Rheumatoid arthritis with rheumatoid factor of multiple sites without organ or systems involvement, M06.9 - Rheumatoid arthritis, unspecified tocilizumab 162 mg (0.9 mL) subcut Q2W 1.8 mL 5RF M05.79 - Rheumatoid arthritis with rheumatoid factor of multiple sites without organ or systems involvement tocilizumab 162 mg (0.9 mL) subcut Q2W 1.8 mL 5RF M05.79 - Rheumatoid arthritis with rheumatoid factor of multiple sites without organ or systems involvement Discontinued adalimumab (Humira(CF) Pen) Discontinued Reason: Doctor's Order 40 mg (0.4 mL) subcut Q2W 2 ea 5RF M05.79 - Rheumatoid arthritis with rheumatoid factor of multiple sites without organ or systems involvement Coding Level of Care Code Est Pt Level 5 (77617) Complex EM visit Add On G2211 Diagnoses Rheumatoid arthritis involving multiple sites with positive rheumatoid factor M05.79 Rheumatoid arthritis location: multiple sites Rheumatoid factor presence: with rheumatoid factor Restrictive lung disease J98.4 Osteopenia of multiple sites M85.89 Osteopenia location: multiple sites Encounter for monitoring tocilizumab therapy Z51.81; Z79.620
== END 2024-07-17 12:29 | disposition home or self-care (01) ==
LOC: HO.RHE 11:52
PROVIDERS: PCP Student in an Organized Health Care Education/Training Program; Visit Provider Student in an Organized Health Care Education/Training Program
DX: M05.79 Rheumatoid arthritis with rheumatoid factor of multiple sites without organ or systems involvement (principal); J98.4 Other disorders of lung; M85.89 Other specified disorders of bone density and structure, multiple sites; Z51.81 Encounter for therapeutic drug level monitoring; Z79.620 Long term (current) use of immunosuppressive biologic
CPT/HCPCS: 99215; G2211

== ENCOUNTER 2024-07-17 12:32 | Outpatient (REF) | payer OTHER, SELFPAY ==
[2024-07-17 14:03] LABS: MANUAL DIFF FLAG NO
[2024-07-17 14:18] LABS: Basophils Absolute Auto 0.1 X10*3/uL (0.0-0.2); Basophils Percent Auto 0.6 % (0-2); Eosinophils Absolute Auto 0.6 X10*3/uL (0.0-0.4); Eosinophils Percent Auto 4.9 % (0-4); Hemoglobin 12.3 g/dl (12.0-16.0); Imm Gran Abs Auto 0.04 X10*3/uL (0.00-0.03); Imm Gran Pct Auto 0.3 % (0.0-0.4); Lymphocytes Absolute Auto 2.3 X10*3/uL (1.2-4.9); Lymphocytes Percent Auto 19.7 % (20-40); Mean Corpuscular HGB Conc 31.5 g/dl (31.0-35.0); Mean Corpuscular Hemoglobin 29.2 pg (27.0-33.0); Mean Corpuscular Volume 92.6 fL (80.0-98.0); Mean Platelet Volume 10.8 fL (9.4-12.3); Monocytes Absolute Auto 1.3 X10*3/uL (0.1-1.2); Monocytes Percent Auto 11.1 % (2-11); Neutrophils Absolute Auto 7.3 x10*3/uL (2.0-8.3); Neutrophils Percent Auto 63.4 % (45-73); Platelet Count 340 X10*3/uL (160-400); Red Blood Count 4.21 X10*6/uL (4.20-5.50); Red Cell Distribution Width 13.4 % (11.0-16.0); White Blood Count 11.5 X10*3/uL (4.8-10.8)
[2024-07-17 14:26] LABS: Alanine Aminotransferase 42 U/L (0-31); Albumin Level 3.8 g/dL (3.5-5.0); Alkaline Phosphatase 124 U/L (39-117); Anion Gap 12 (12-20); Aspartate Amino Transferase 33 U/L (5-31); Bilirubin Total 0.5 mg/dL (0.0-1.0); Blood Urea Nitrogen 17 mg/dL (9-16); C Reactive Protein 1.66 mg/dL (< or = 0.50); Carbon Dioxide 26 mmol/L (22-29); Chloride 106 mmol/L (96-108); Cholesterol 145 mg/dL (<200); Estimated Glomerular Filt Rate 58; Glucose Random 222 mg/dL (60-115); HDL Cholesterol 71 mg/dL (>40); LDL Cholesterol Calculated 60 mg/dL (<100); Potassium 3.9 mmol/L (3.3-5.1); Sodium 140 mmol/L (135-145); Total Protein 7.6 g/dL (6.5-8.0); Triglycerides 71 mg/dL (<150)
--- OUTSIDE RECORDS SUMMARY | 2024-07-17 14:44 | XMS_ITS | Encounter Summary ---
Author Organization [employer] [facility] Address [address] [place] [address] 7 [place] [address] Care Team Providers Care Metal Filer Name Role Phone Cash Arevalo MD Primary Care Provider Cecy Stephen [facility] Primary Care Provider +1- [phone] Cecy Gonzalez [facility] Primary Care Provider +1- [phone] Hue Meza MD Primary Care Pro vider Fely Bowens PharmD Unavailable [phone] Encounter Details Date Type Department Care Team (Late st Contact Info) Description 03/23/2022 Telephone [facility] [address] [place] [phone] Cash Arevalo MD Social History Tobacco Use [...] Department Care Team (Late Contact Info) Description 08/12/2024 10:15 AM EDT Office Visit [facility] [address] [place] [phone] Hue Meza MD [address] [place], [place] [phone] 10/02/2024 10:00 AM EDT Medication Management [facility] [address] [place] [address] Fely Bowens PharmD [address] [place] [address] documented as of this encounter Visit Diagnoses Not on filedocumented in this encounter Care Teams Metal Filer Relationship Specialty Start Date End Date Cash Arevalo MD PCP - General Family Medicine 01/29/19 03/23/22 Cecy Gonzalez FNP PCP - General Family Medicine 03/24/22 08/21/22 Cecy Gonzalez FNP PCP - General Family Medicine 08/22/22 12/21/22 Hue Meza MD [address] [place] [address] PCP - General Internal Medicine 12/22/22 Fely Bowens PharmD [address] [place] [address] Pharmacist Internal Medicine 06/02/24 documented as of this encounter
--- OUTSIDE RECORDS SUMMARY | 2024-07-17 14:44 | XMS_ITS | Encounter Summary ---
Author Organization [employer] Address [address] [facility] 7 [place] [address] Care Team Providers Care Guest Services Agent Name Role Phone Cecy Gonzalez Primary Care Provider +1- [phone] Hue Meza MD Primary Care Pro vider Fely Bowens PharmD Unavailable [phone] Reason for Visit * Reason Onset Date Comments Hospital Follow-up 10/26/2022 Encounter Details Date Type Department Care Team (Late st Contact Info) Description 10/26/2022 Telephone [facility] [address] [place] [address] Cecy Gonzalez FNP [address] [place] [address] Dept [place] [address] Hospital Follow-up Social History Tobacco Use Types [...] Miscellaneous Notes * Telephone Encounter - Christina Carrenonez - 10/26/2022 12:16 PM EDT Tc from Hue at [facility] Tc from pt requesting a [facility] appt. Pt was admitted at [facility] on 10/22/22 and discharged on 10/25/22. Pt wasdiagnosed with small fracture on the spine Please call pts granddaughter Irma at [phone] documented in this encounter Plan of Treatment Upcoming Encounters Date Type Department Care Team (Late st Contact Info) Description 08/12/2024 10:15 AM EDT Office Visit [facility] [address] [place] [address] Hue Meza MD [address] [place] [address] 10/02/2024 10:00 AM EDT Medication Management [address] [address] Fely Bowens PharmD [address] [place] [address] documented as of this encounter Visit Diagnoses Not on filedocumented in this encounter Care Teams Guest Services Agent Relationship Specialty Start Date End Date Cecy Gonzalez FNP PCP - General Family Medicine 08/22/22 12/21/22 Hue Meza MD [address] [place] [id number] PCP - General Internal Medicine 12/22/22 Fely Bowens PharmD [address] [place] [address] Pharmacist Internal Medicine 06/02/24 documented as of this encounter
--- OUTSIDE RECORDS SUMMARY | 2024-07-17 14:46 | XMS_ITS | Encounter Summary ---
Author Organization [employer] Address 75 [facility] 7t [place] [address] Care Team Providers Care Biochemistry Technician Name Role Phone Hue Meza MD Primary Care Pro vider Fely Bowens PharmD Unavailable [phone] Reason for Visit * Reason Comments Med Refill Encounter Details Date Type Department Care Team (Late st Contact Info) Description 12/28/2022 Refill [facility] [address] [place] [address] Cecy Gonzalez, AVIS [facility] Dept [place] [address] Dementia without behavioral disturbance, psychotic disturbance, mood [...] Description 08/12/2024 10:15 AM EDT Office Visit [facility] [address] [place] [phone] Hue Meza MD [address] [place] [phone] 10/02/2024 10:00 AM EDT Medication Management [facility] [address] [place] [address] Fely Bowens, PharmD [address] [place] [phone] documented as of this encounter Goals Goal Patient Goal Type Associated Problems Recent Progress Patient-Stated? Author Blood Pressure < 140/90 Blood Pressure 138/74(2023 11:08 AM EST) No Boby Anand Hemoglobin A1c < 8 Result Component 7.6( 12:12 PM EDT) No Boby Anand documented as of this encounter Visit Diagnoses Diagnosis Dementia without behavioral disturbance, psychotic disturbance, mood disturbance, or anxiety, unspecified dementia severity, unspecified dementia type (CMS/HCC) documented in this encounter Additional Health Concerns Assessment Noted Time PHQ-9 Depression Total Score: 15 023 1:49 PM EDT documented as of this encounter Care Teams Biochemistry Technician Relationship Specialty Start Date End Date Hue Meza MD [address] [place] [address] [phone] PCP - General Internal Medicine 12/22/22 Fely Bowens PharmD [address] [place] [address] [phone] Pharmacist Internal Medicine 06/02/24 documented as of this encounter
--- OUTSIDE RECORDS SUMMARY | 2024-07-17 14:46 | XMS_ITS | Clinical Summary ---
Author Organization [employer] Address 75 [facility] 7t [place] [address] Care Team Providers Care Clubhouse Manager Name Role Phone Hue Meza MD Primary Care Pro vider Fely Bowens PharmD Unavailable [phone] Allergies Active Allergy Reactions Criticality Noted Date Comments Losartan Cough 10/17/2023 Medications methIMAzole (Tapazole) 10 MG tablet Take 1 tablet by mouth 3 times daily. 023 Active Fluticasone-Sourav meterol 500-50 MCG/ACT aerosol powder Take 1 Inhalation by mouth 2 times daily. 023 Active Incruse Ellipta 62.5 MCG/ACT aerosol powder Take 1 Inhalation by mouth Once daily. 023 Active donepezil (Aricept) 10 MG tabletIndicatio ns:Dementia without behavioral disturbance, psychotic disturbance, mood disturbance, or anxiety, unspecified dementia severity, unspecified dementia type (CMS/HCC) TAKE 1 TABLET BY MOUTH AT BEDTIME 28 tablet 3 023 Active Ventolin HFA 108 (90 Base) MCG/ACT inhaler INHALE 2 PUFFS BY MOUTH EVERY 4 TO 6 HOURS NEEDED 18 g 2 023 Active Blood Pressure Monitor kitIndications: Annual physical exam 1 kit in the morning. 1 kit 023 Active glucose blood (FREESTYLE LITE) test stripIndication s:Type 2 diabetes mellitus with other specified complication, unspecified whether prison insulin use (CMS/HCC) TEST BLOOD SUGAR 3 TIMES A DAY 100 strip 11 01/29/2 024 Active Fiber-Lax 625 MG tablet Take 625 mg by mouth Once per day. Active alendronate (Fosamax) 70 MG tablet Take 1 tablet (70 mg) by mouth every 7 (seven) days. Take in the morning with a full glass of water, on an empty stomach, and do not take anything else by mouth or lie down for the next 30 min. 4 tablet 11 2024 Active celecoxib (CeleBREX) 200 MG capsule Take 1 capsule (200 mg) by mouth if needed in the morning and at bedtime for mild pain. Please put outside box 60 capsule Active Additional Information Patient not taking.Reported on 02/05/2024 glucose blood (FreeStyle Precision Feroz Test) test stripIndication s:Type 2 diabetes mellitus with other specified complication, with long-term current use of insulin ([facility]) Test blood sugar q 8 hours 100 each 12 Active Continuous Glucose Clinical Resource Director (FreeStyle [place] 3 [place]) device 1 each Once per day. 1 each Active Calcium Carbonate-Vit D-Min (Calcium-Vitami n D-Minerals) 600-800 MG-UNIT chewable tablet Chew 1 tablet with breakfast and with evening meal. 180 tablet 3 Active pantoprazole (ProtoNix) 40 MG EC tablet TAKE 1 TABLET BY MOUTH EVERY MORNING 30 MINUTES BEFORE BREAKFAST Active Aspirin Low Dose 81 MG EC tabletIndicatio ns:Atherosclero sis of coronary artery of [place] heart, unspecified vessel or lesion type, unspecified whether angina present TAKE 1 TABLET BY MOUTH EVERY MORNING 90 tablet 1 Active atorvastatin (Lipitor) 40 MG tablet TAKE 1 TABLET BY MOUTH EVERY MORNING 90 tablet 1 Active lidocaine (Lidoderm) 5 % patchIndication s:Closed fracture dislocation of lumbar spine, sequela Apply 1 patch topically Once per day. Remove & discard patch within 12 hours or as directed by MD. 30 patch 2 Active Diclofenac Sodium (Voltaren) 1 % gel Apply 2 g topically if needed in the morning and at bedtime (muscle pain). 100 g 3 Active insulin glargine (Lantus SoloStar) 100 UNIT/ML penIndications: Type 2 diabetes mellitus without complication, with long-term current use of insulin ([facility]) Inject 20 Units under the skin at bedtime. 15 mL 5 024 2024 Active TRUEplus Lancets 33G misc TEST BLOOD SUGAR THREE TIMES DAILY 100 each Active Easy Touch Pen [place] 31G X 8 MM misc USE ONCE DAILY WITH LANTUS 100 each Active melatonin 5 MG tablet TAKE 1 TABLET BY MOUTH AT BEDTIME NEEDED FOR SLEEP 30 tablet 2 Active carvedilol (Coreg) 3.125 MG tabletIndicatio ns:Essential hypertension TAKE 1 TABLET BY MOUTH TWICE DAILY IN THE MORNING AND IN THE EVENING WITH FOOD 60 tablet 3 Active cyanocobalamin (Vitamin B-12) 500 MCG tablet TAKE 1 TABLET BY MOUTH EVERY EVENING (SUNDAY, SUNDAY, SUNDAY) 90 tablet Active amLODIPine (Norvasc) 5 MG tablet TAKE 1 TABLET BY MOUTH EVERY EVENING 90 tablet 025 Active Acetaminophen Extra Strength 500 MG tablet Active Humira, 2 Pen, 40 MG/0.4ML Auto-injector Kit INJECT 0.4 ML SUBCUTANEOUSLY EVERY 2 WEEKS Active senna (Senokot) 8.6 MG tablet TAKE 1 TABLET BY MOUTH AT BEDTIME FOR CONSTIPATION 025 Active linaGLIPtin (Tradjenta) 5 MG tablet Take 1 tablet (5 mg) by mouth Once per day. 30 tablet 11 025 2025 Active FLUoxetine (PROzac) 10 MG capsule TAKE 1 CAPSULE BY MOUTH EVERY MORNING 90 capsule 025 Active furosemide (Lasix) 20 MG tabletIndicatio ns:Chronic diastolic (congestive) heart failure (CMS/[facility]) TAKE 1 TABLET BY MOUTH EVERY MORNING 90 tablet 025 Active pyridoxine (Vitamin B-6) 50 MG tablet TAKE 1 TABLET BY MOUTH EVERY MORNING 90 tablet 1 025 Active Continuous Glucose Sensor (FreeStyle Wilmar 3 Sensor) miscIndications :Type 2 diabetes mellitus with other specified complication, with long-term current use of insulin ([facility]) USE DIRECTED 2 each 3 025 Active gabapentin (Neurontin) 300 MG capsuleIndicati ons:Neuropathy TAKE 1 CAPSULE BY MOUTH AT BEDTIME 30 capsule 5 025 Active famotidine (Pepcid) 20 MG tablet TAKE 1 TABLET BY MOUTH EVERY MORNING 90 tablet 025 Active gabapentin (Neurontin) 300 MG capsuleIndicati ons:Neuropathy TAKE 1 CAPSULE BY MOUTH AT BEDTIME 30 capsule 5 024 2024 Discontinued famotidine (Pepcid) 20 MG tablet TAKE 1 TABLET BY MOUTH EVERY MORNING 90 tablet 024 2024 Discontinued Continuous Glucose Sensor (FreeStyle Wilmar 3 Plus Sensor) miscIndications :Type 2 diabetes mellitus with other specified complication, with long-term current use of insulin ([facility]) Apply 1 every 15 days as directed for CGM 2 each 11 025 2024 Discontinued Active Problems Problem Noted Date Diagnosed [...] contacted yet for f/u by TB clinic [facility] Assessment & Plan (12/21/2022 11:17 AM EDT): Provider called [facility] TB during visit requesting status of appt. No answer Also gave family phone number to call [facility] TB directly RTC if cough worsens [...] Last Dental Exam: N, referral sent to [facility] 07/2023 Assessment & Plan (11/05/2023 12:20 [...] contacted yet for f/u by TB clinic [facility] Provider called [facility] TB during visit requesting status of appt. No answer Also gave family phone number to call [facility] TB directly RTC if cough worsens F/u PRN Assessment & Plan (11/02/2022 6:31 PM EDT): Wheezing noted exam Recommended SANTOS use PRN F/u PRN Obstructive sleep apnea syndrome 10/13/2014 Gastroparesis 12/10/2013 Osteopenia 09/24/2012 Hyperlipidemia 06/27/2012 Atherosclerosis of coronary artery of [place] heart with other form of angina pectoris, unspecified vessel or lesion type 06/18/2012 Assessment & Plan (12/21/2022 11:13 AM EDT): Refill aspirin for medbox program F/u PRN Diabetic polyneuropathy 06/18/2012 Resolved Problems Problem Noted Date Diagnosed Date Resolved Date Chronic cough 08/17/2023 10/17/2023 Encounters Date Type Department Care Team Description 07/02/2024 Refill [facility] [address] [place] [address] Hue Meza MD Neuropathy 06/21/2024 Refill [facility] [address] [place] [address] Hue Meza MD Neuropathy 06/19/2024 Refill [facility] [address] [place] [address] Zoila Romero MD Type 2 diabetes mellitus with other specified complication, with long-term current use of insulin ([facility]) 06/15/2024 Refill [facility] [address] [place] [address] Hue Meza MD Chronic diastolic (congestive) heart failure ([facility]) 06/02/2024 Travel 05/29/2024 Refill [facility] [address] [place] [address] Hue Meza MD 05/20/2024 Refill [facility] [address] [place], [place] [phone] Hue Meza MD from Last 3 Months Immunizations Name Administration Dates Next Due Hep B, adult 06/02/2024,03/15/2017,02/07/2017 Influenza injectable quadriv alent IIV4 with preservative 02/07/2017 Influenza injectable quadriv alent preservative free 03/02/2023 Influenza, High Dose Seasona l, Preservative Free 11/30/2023,11/28/2018 Influenza, IIV3, injectable 11/28/2018, 7,04/13/2014 Influenza, Split (incl. cecil fied surface antigen) 11/20/2012 Pfizer Covid-19 Vaccine 12+ 12/24/2023, Pneumococcal Conjugate PCV 13 08/14/2014 Pneumococcal Conjugate PCV 20 01/29/2023 Pneumococcal Polysaccharide PPSV23 11/20/2012 RSV Bivalent 12/24/2023 Tdap 01/29/2023,08/20/2012 Zoster, Recombinant 06/02/2024,12/24/2023 Zoster, live 06/09/2013 Family History Medical History [...] Description 08/12/2024 10:15 AM EDT Office Visit [facility] [address] [place] [address] Hue Meza MD [address] [place], [place] [phone] 10/02/2024 10:00 AM EDT Medication Management [facility] [address] [place] [phone] Fely Bowens, PharmD [address] [place], [place] [phone] Health Maintenance Due Date Last Done Comments Diabetes: Foot Exam 12/17/1955 Eye Exam 12/17/1955 Alcohol/Substance Use Screening 1957 Depression Monitoring 04/17/2024 10/16/2023, 024 Diabetes: Hemoglobin A1C 09/02/2024 025, 02/05/2024, 10/16/2023, Additional history exists Depression Screening 10/15/2024 10/16/2023, [...] Aged 60 years or older Completed 12/24/2023 Hepatitis B Vaccines Completed 06/02/2024, 03/15/2017, 02/07/2017 Zoster Vaccines Completed 06/02/2024, 09/2023, 06/09/2013 HIB Vaccines Aged Out No longer eligi [...] 7.6( 12:12 PM EDT) No Boby Anand Procedures Procedure Name Priority Date/Time Associated Diagnosis Comments POCT GLYCATED HEMOGLOBIN, TOTAL Routine 06/02/2024 12:12 PM EDT Type 2 diabetes mellitus with other specified [...] Recently Relevant to Health Maintenance Results * (ABNORMAL) POCT A1C (06/02/2024 12:12 PM EDT) Hemoglobin A1C 7.6(A) 4.0 - 6.0 % QC Media Lot # [id number] Lot# Expiration Date Blood 06/02/2024 12:1 2 PM EDT us Malika Frey MD POINT OF CARE TEST ENTER/ED IT ORDERABLES Final Result * Albumin, Random Urine W/Creatinine (02/05/2024 10:33 AM EST) Creatinine, Urine 280.14 mg/dL [facility] Microalbumin Urine 28.0 mg/L [facility] Microalbum Creatinine Ratio Ur 9.9 <30 ug/mg cr [facility] Comment:Albumin/Creatinine R atio Reference Ranges: Normal: < 30 ug/mg creatinine Microalbuminuria: 30 - 300 ug/mg creatinineClinical Albuminuria: > 300 ug/mg creatinine Urine (Urine, Random) 02/05/2024 10:33 AM EST 02/05/2024 1:08 PM EST us Hue Lopez MD LAB URINE ORDERAB LES Final Result [facility] [address] [place] [address] [phone] * Lipid Panel, Standard (02/05/2024 10:33 AM EST) Triglycerides 60 <150 mg/dL [facility] Comment:Desirable Triglyceri de: less than 150 mg/dLBorderline High Triglyceride 150-199 mg/dLHigh Triglyceride: 200-499 mg/dLVery High Triglyceride: greater than or equal to 5OO mg/dL Cholesterol 164 <200 mg/dL [facility] Comment:Desirable Cholestero l: less than 200 mg/dLBorderline High Cholesterol: 200-239 mg/dLHigh Cholesterol: greater than 239 mg/dL LDL Cholesterol Calculated 82 <100 mg/dL [facility] Comment:Desirable LDL: less than 100 mg/dLNear Optimal/Above Optimal LDL: 110- 129 mg/dLBorderline High LDL: 130-159 mg/dLHigh LDL: 160-189 mg/dLVery High LDL: greater than or equal to 190 mg/dL HDL Cholesterol 70 >40 mg/dL [facility] Comment:Desirable HDL: great er than 40 mg/dL Note: This HDL assay may give artificially low results in patients with liver disease. Blood Venous blood specimen / Unknown 02/05/2024 10:33 AM EST 02/05/2024 1:08 PM EST us Hue Lopez MD LAB BLOOD ORDERAB LES Final Result Performing Organization Address [facility] Co de Phone Number [facility] [address] [place] [address] [phone] * Hepatitis C Antibody with Reflex to HCV, RNA, Quantitative, Real-Time PCR (03/20/2023 1:23 PM EST) Hepatitis C Antibody Nonreactive Nonreactive [facility] Comment:Antibodies to HCV no t detected; does not exclude early acuteHCV infection. Blood Venous blood specimen / Unknown 03/20/2023 1:23 PM EST 03/20/2023 1:23 PM EST us Hue Lopez MD LAB BLOOD ORDERAB LES Final Result [facility] [address] [place] [address] [phone] from Last 3 Months or Most Recently Relevant to Health Maintenance Insurance [employer] (HMO D-SNP) JESS SORENSEN [id number] Care Teams Clubhouse Manager Relationship Specialty Start Date End Date Hue Meza MD [address] [place] [address] PCP - General Internal Medicine 12/22/22 Fely Bowens PharmD [address] [place] [address] Pharmacist Internal Medicine 06/02/24
--- OUTSIDE RECORDS SUMMARY | 2024-07-17 14:46 | XMS_ITS | Encounter Summary ---
Author Organization [employer] Address [address] [place] [address] 7t [place] [address] Care Team Providers Care Asbestos Abatement Worker Name Role Phone Cash Arevalo MD Primary Care Provider Cecy Stephen BARREL LATHE OPERATOR Primary Care Provider [phone] Cecy Gonzalez BARREL LATHE OPERATOR Primary Care Provider [phone] Hue Meza MD Primary Care Pro vider Fely Bowens PharmD Unavailable [phone] Reason for Visit * Reason Onset Date Comments transfer pt appt 03/23/2022 Encounter Details Date Type Department Care Team (Late st Contact Info) Description 03/23/2022 Telephone [facility] [address] [place] [address] Cash Arevalo MD transfer pt appt Social [...] Description 08/12/2024 10:15 AM EDT Office Visit [address] [address] Hue Meza MD [address] [place] [address] 10/02/2024 10:00 AM EDT Medication Management [address] [phone] Fely Bowens PharmD [address] [place] [address] [phone] documented as of this encounter Visit Diagnoses Not on filedocumented in this encounter Care Teams Asbestos Abatement Worker Relationship Specialty Start Date End Date Cash Arevalo MD PCP - General Family Medicine 01/29/19 03/23/22 Cecy Gonzalez FNP PCP - General Family Medicine 03/24/22 08/21/22 Cecy Gonzalez FNP PCP - General Family Medicine 08/22/22 12/21/22 Hue Meza MD [address] [place] [address] [phone] PCP - General Internal Medicine 12/22/22 Fely Bowens PharmD [address] [place] [address] [phone] Pharmacist Internal Medicine 06/02/24 documented as of this encounter
--- OUTSIDE RECORDS SUMMARY | 2024-07-17 14:46 | XMS_ITS | Encounter Summary ---
Author Organization [employer] [facility] Address [address] [place] [address] [place] [address] Care Team Providers Care Supervisor Water Treatment Plant Name Role Phone Cecy Gonzalez Primary Care Provider [phone] Hue Meza MD Primary Care Pro vider Fely Bowens PharmD Unavailable [phone] Reason for Visit * Reason Comments Med Refill Encounter Details Date Type Department Care Team (Late st Contact Info) Description 12/12/[address] [facility] MEDICINE [address] [place] [address] Cecy Gonzalez FNP [address] [place] [address] Dept [place] [address] Primary hypertension Social History Tobacco Use Types [...] Description 08/12/2024 10:15 AM EDT Office Visit [facility]INE [address] [place] [address] Hue Meza MD [address] [place] [address] 10/02/2024 10:00 AM EDT Medication Management [facility] MED[facility] [address] [place], [place] [phone] Fely Bowens PharmD [address] [place] [address] documented as of this encounter Goals Goal [...] documented as of this encounter Care Teams Supervisor Water Treatment Plant Relationship Specialty Start Date End Date Cecy Gonzalez FNP PCP - General Family Medicine 08/22/22 12/21/22 Hue Meza MD [address] [place] [phone] PCP - General Internal Medicine 12/22/22 Fely Bowens PharmD [address] [place] [address] [phone] Pharmacist Internal Medicine 06/02/24 documented as of this encounter
--- OUTSIDE RECORDS SUMMARY | 2024-07-17 14:46 | XMS_ITS | Encounter Summary ---
Author Organization [employer] Address [address] [place] [address] 7t [place] [address] Care Team Providers Care Finish Production Manager Name Role Phone Cecy Gonzalez Primary Care Provider [phone] Cecy Gonzalez Primary Care Provider [phone] Hue Meza MD Primary Care Pro vider Fely Bowens PharmD Unavailable [phone] Encounter Details Date Type Department Care Team (Late st Contact Info) Description 05/15/2022 Orders Only [facility] [address] [place] [address] Lindsey Ascencio LPN Social History Tobacco Use [...] Description 08/12/2024 10:15 AM EDT Office Visit [facility] [address] [place] [address] [phone] Hue Meza MD [address] [place], [place] [phone] 10/02/2024 10:00 AM EDT Medication Management [facility] [address] [place] [address] Fely Bowens PharmD [address] [place] [address] documented as of this encounter Procedures Procedure Name Priority Date/Time Associated Diagnosis Comments T4, FREE Routine 11/02/2022 2:27 PM EDT documented in this encounter Results * T4, Free (11/02/2022 2:27 PM EDT) Free T4 (Free Thyroxine) 1.72 0.71 - 1.85 ng/dL [facility] 11/02/2022 2:27 PM EDT 11/02/2022 4:03 PM EDT Cecy ALBARRAN LAB BLOOD ORDERABLES Final Result [facility] [address] [place] [address] [phone] documented in this encounter Visit Diagnoses Not on filedocumented in this encounter Care Teams Finish Production Manager Relationship Specialty Start Date End Date Cecy Gonzalez FNP PCP - General Family Medicine 03/24/22 08/21/22 Cecy Gonzalez FNP PCP - General Family Medicine 08/22/22 12/21/22 Hue Meza MD [address] [place] [address] PCP - General Internal Medicine 12/22/22 Fely Bowens PharmD [address] [place] [phone] Pharmacist Internal Medicine 06/02/24 documented as of this encounter
--- OUTSIDE RECORDS SUMMARY | 2024-07-17 14:46 | XMS_ITS | Encounter Summary ---
Author Organization [employer] Address [address] [facility] 7t [place] [address] Care Team Providers Care Backshoe Person Name Role Phone Hue Meza MD Primary Care Pro vider Fely Bowens PharmD Unavailable [phone] Reason for Visit * Reason Comments Med Refill Encounter Details Date Type Department Care Team (Late st Contact Info) Description 06/21/2024 Refill [facility] [address] [place], [place] [phone] Hue Meza MD [address] [place], [place] [phone] Neuropathy Social History Tobacco Use Types Packs/Day Years [...] Description 08/12/2024 10:15 AM EDT Office Visit [facility] [address] [place] [address] Hue Meza MD [address] [place] [phone] 10/02/2024 10:00 AM EDT Medication Management [address] [address] Fely Bowens, Jamie [address] [place] [address] documented as of this encounter Goals Goal Patient Goal Type Associated Problems Recent Progress Patient-Stated? Author Blood Pressure < 140/90 Blood Pressure 138/74(2023 11:08 AM EST) No Boby Anand Hemoglobin A1c < 8 Result Component 7.6( 12:12 PM EDT) No Boby Anand documented as of this encounter Visit Diagnoses Diagnosis Neuropathy Mononeuritis of unspecified site documented in this encounter Additional Health Concerns Assessment Noted Time PHQ-9 Depression Total Score: 12 07/30/2 024 11:37 AM EDT documented as of this encounter Care Teams Backshoe Person Relationship Specialty Start Date End Date Hue Meza MD [address] [place] [address] [phone] PCP - General Internal Medicine 12/22/22 Fely Bowens PharmD [address] [place] [phone] Pharmacist Internal Medicine 06/02/24 documented as of this encounter
[2024-07-17 14:47] LABS: HBc Num1 0.06 S/CO (0.00-0.79); HBsAGNum1 0.23 S/CO (0.00-0.99); Hepatitis A Antibody IgM 0.27 Index (0-0.79); Hepatitis B Core Antibody Nonreactive (Nonreactive); Hepatitis B Surface Antigen Negative (Negative); ~HepC Num1 0.11 S/CO (0.00-0.79); ~Hepatitis A Antibody IgM Nonreactive (Nonreactive); ~Hepatitis B Surface Antibody NONREACTIVE (Nonreactive); ~Hepatitis C Antibody Nonreactive (Nonreactive)
--- OUTSIDE RECORDS SUMMARY | 2024-07-17 14:48 | XMS_ITS | Data Portability ---
Author Organization [employer] [facility], [place] in - [facility] Address [address] [place] [id number] Care Team Providers Care Information Operator Name Role Phone [facility] Referring Provider [facility] Referring Provider Assessment Encounter Date Assessment Date Assessment LastModified by Organization Details LastModified Time 07/13/2021 07/13/2021 I have reviewed and agree with the Assessment and Plan as documented by the Retail Key Holder. I provided real -time medical direction via phone for this encounter, and was available for additional phone based assistance as needed. Patient given the opportunity to ask questions. [email or web address] Not available 07/13/2021 19:23:03 Plan of Treatment Reminders Order Date Submit Date Provider Last Modified By Organization Details Last Modified Time Details Appointments None recorded. Lab rapid flu (A+B) 2021 [email or web address] 0 [facility], [address] [place] [address], [id number] 18:48:47 glucose, fingerstick , blood 2021 [email or web address] 0 [facility], [address] [place] [address], [id number] 18:48:46 rapid SARS CoV 2 Ag, QL IA, respiratory specimen 2021 [email or web address] 0 [facility], [address] [place] [address], [id number] 18:48:46 Referral None recorded. Procedures None recorded. Surgeries None recorded. Imaging None recorded. Medication Orders prednisone 20 mg tablet 2021 [email or web address] 0 Not available 18:48:46 prednisone 20 mg tablet 2021 [facility], [address] [place] [address], [id number], 19:01:03 Patient TargetsNo targets recorded. Patient InstructionsNo instructions recorded. Reason for Referral None Reported. Results Created Date Observation Date Name Description Value Unit Range Abnormal Flag Note LastModifiedBy Organization Detail LastModifiedTime 07/14/19 22 07/13/2021 gluco se, finge rstic k, blood Blood Glucose: mg/dl 138 Not Available [facility] [address] [place] [address], [id number] 07/13/2021 18:41:35 07/14/19 22 07/13/2021 rapid SARS CoV 2 Ag, QL IA, respi rator y speci men rapid SARS CoV 2 Ag, QL IA, respiratory specimen negati ve Not Available [facility] ed [address] [place] [address], [id number] 07/13/2021 18:41:44 07/14/19 22 07/13/2021 rapid flu (A+B) Flu negati ve Not Available [facility] ed [address] [place] [address], [id number] 07/13/2021 18:41:29 Result Notes None recorded. Medical [...] Available UltiCare Pen Needle 31 gauge x 5/16 USE DAILY active Not Available Not Available [...] Address Organization Details Last Updated DateTime 07/13/2021 11746.93 g Jagdish Clinton [address] [place] [address],[address], [place], [address], [place] - [employer] 07/13/2021 19:21:29 Date Recorded Respiratory rate Heart [...] /min 98.6 [degF] 97 % 97 % 94586.8 8 g 98.6 [degF] 24 /min 97 [...] Note 1225 [facility]isa [facility]aver [facility] [address] [place] [phone] 07/13/2021 18:37:50 11/24/2021 18:09:23 Acute exacerbation of chronic obstructive pulmonary disease [id number] J44.1 pat advised can use nebs (albuterol [...] Concerns Section Related Observation LastModified by Organization Chiki rowley LastModified Time None Recorded Concern Status LastModified by Organization Details LastModified Time None Recorded Advance Directives Directive None Recorded Payers Encounter Date Sequence Insurance Name Policy Number Policy Clark Covered Member ID Clark Member ID Guarantor Name 07/13/[address] [facility] - DOS PRIOR TO 2022 - DUAL ELIGIBLE (MEDICARE REPLACEMENT/ADV ANTAGE - HMO) Hue Russell [id number] Hue Russell Notes Date Note Type Note [...] ..................... ..................... ..................... ..................... ..................... ..................... ............... Retail Key Holder Note: Evaluated pt with assistance from beading machine operator, c/o sob/guillermo. Upon arrival, pt [...] taking her own neb treatment and consulted [facility]. [facility] ordered q4 neb treatments, plenty of fluid intake, 40mg of PO prednisone to be dispensed now with a script to be sent to pharmacy. [facility] detailed treatment plan with request that pt f/u with pcp <48 hours. Went over red flags and no further questions or concerns at this time. ..................... ..................... ..................... ..................... ..................... ..................... ............... Disposition: Fulfilled Larisa Shaver MD [address] [facility],[address], [place], [address], [employer] [facility] [employer] 07/13/2021 19:26:34 OBGyn Episode No OBEpisode recorded.
[2024-07-17 14:51] LABS: Erythrocyte Sedimentation Rate 44 MM/HR (0-20)
== END 2024-07-17 12:33 | disposition home or self-care (01) ==
LOC: HO.10HDL 12:32
PROVIDERS: Visit Provider Student in an Organized Health Care Education/Training Program
DX: M05.79 Rheumatoid arthritis with rheumatoid factor of multiple sites without organ or systems involvement (principal); J98.4 Other disorders of lung; M85.89 Other specified disorders of bone density and structure, multiple sites; Z51.81 Encounter for therapeutic drug level monitoring; Z79.620 Long term (current) use of immunosuppressive biologic; Z13.6 Encounter for screening for cardiovascular disorders
CPT/HCPCS: 36415; 80053; 80061; 85025; 85652; 86140; 86704; 86706; 86709; 86803; 87340; 99212

== ENCOUNTER 2024-08-12 12:40 | Outpatient (REF) | payer OTHER, SELFPAY ==
--- NOTE | ~2024-08-12 | XR_ITS ---
EXAMINATION: XR CHEST CLINICAL INFORMATION: pt with chronic dyspnea, crakles on lungs COMPARISON: 08/16/2023. TECHNIQUE: 2 views of the chest were obtained. FINDINGS: Prior median sternotomy. Probable CABG. The cardiac, hilar, and mediastinal contours are normal. Aortic mural calcification. The lungs are clear bilaterally. Mild pulmonary hyperaeration. There is no pneumothorax or pleural effusion. There is no focal osseous or soft tissue abnormality. There are mild spinal degenerative changes. XR/XR chest 2V IMPRESSION: 1. No active pulmonary disease. 2. Sternotomy and probable CABG. Electronically signed by: Nikita Galindo MD 08/12/2024 12:58 PM EDT
--- OUTSIDE RECORDS SUMMARY | 2024-08-12 12:43 | XMS_ITS | Encounter Summary ---
Author Organization [employer] Address [address] [place] [id number] Care Team Providers Care Authorization Nurse Name Role Phone Cecy Gonzalez Primary Care Provider [phone] Hue Meza MD Primary Care Pro vider Fely Bowens PharmD Unavailable [phone] Reason for Visit * Reason Onset Date Comments Hospital Follow-up 10/26/2022 Encounter Details Date Type Department Care Team (Late st Contact Info) Description 10/26/2022 Telephone [facility] MEDICINE [address] [place] [address] Cecy Gonzalez FNP [address] [place] [address] Dept [place] [address] Hospital Follow-up Social History Tobacco Use Types [...] 12:16 PM EDT Tc from Hue at [facility] Tc from pt requesting a [facility] appt. Pt was admitted at [facility] on 10/22/22 and discharged on 10/25/22. Pt wasdiagnosed with small fracture on the spine Please call pts granddaандрей Solis at [phone] documented in this encounter Plan of Treatment Upcoming Encounters Date Type Department Care Team (Late st Contact Info) Description 09/01/2024 11:00 AM EDT Clinical Support [address] [address] 10/02/2024 10:00 AM EDT Medication Management [address] [address] Fely Bowens PharmD [address] [place] [phone] 10/10/2024 9:30 AM EDT Office Visit [address] [phone] Hue Meza MD [address] [place] [phone] documented as of this encounter Visit Diagnoses Not on filedocumented in this encounter Care Teams Authorization Nurse Relationship Specialty Start Date End Date Cecy Gonzalez FNP PCP - General Family Medicine 08/22/22 12/21/22 Hue Meza MD [address] [place] [address] [phone] PCP - General Internal Medicine 12/22/22 Fely Bowens, Jamie [address] [place] [address] [phone] Pharmacist Internal Medicine 06/02/24 documented as of this encounter
== END 2024-08-12 12:41 | disposition home or self-care (01) ==
LOC: HO.HHCX 12:40
PROVIDERS: PCP Student in an Organized Health Care Education/Training Program; Visit Provider Student in an Organized Health Care Education/Training Program
DX: R06.00 Dyspnea, unspecified (principal)
CPT/HCPCS: 71046

== ENCOUNTER → 2024-08-12 12:42 | Outpatient (BNV) | payer OTHER, SELFPAY | PROVIDERS: PCP Student in an Organized Health Care Education/Training Program; Visit Provider Radiology Diagnostic Radiology | DX: R06.00 Dyspnea, unspecified (principal) | CPT/HCPCS: 71046 ==

== ENCOUNTER 2024-08-29 12:27 | Outpatient (REF) | payer OTHER, SELFPAY ==
--- OUTSIDE RECORDS SUMMARY | 2024-08-29 13:03 | XMS_ITS | Encounter Summary ---
Author Organization [employer] Address [address] [place] [address] [place] [address] Care Team Providers Care Senior Private Client Advisor Name Role Phone Cecy Gonzalez Primary Care Provider [phone] Hue Meza MD Primary Care Pro vider Fely Bowens PharmD Unavailable [phone] Reason for Visit * Reason Onset Date Comments Hospital Follow-up 10/26/2022 Encounter Details Date Type Department Care Team (Late st Contact Info) Description 10/26/2022 Telephone [facility] MEDICINE [address] [place] [address] Cecy Gonzalez FNP [address] [place] [address] Dept [place] [address] Hospital Follow-up Social History Tobacco Use Types [...] 12:16 PM EDT Tc from Hue at [facility] Tc from pt requesting a [facility] appt. Pt was admitted at [facility] on 10/22/22 and discharged on 10/25/22. Pt wasdiagnosed with small fracture on the spine Please call pts granddaughter Irma at [phone] documented in this encounter Plan of Treatment Upcoming Encounters Date Type Department Care Team (Late st Contact Info) Description 09/01/2024 11:00 AM EDT Clinical Support [address] [address] 09/01/2024 11:00 AM EDT Office Visit [address] [address] 10/02/2024 10:00 AM EDT Medication Management [address] [address] Fely Bowens PharmD [address] [place] [phone] 10/10/2024 9:30 AM EDT Office Visit [address] [address] Hue Meza MD [address] [place] [phone] documented as of this encounter Visit Diagnoses Not on filedocumented in this encounter Care Teams Senior Private Client Advisor Relationship Specialty Start Date End Date Cecy Gonzalez FNP PCP - General Family Medicine 08/22/22 12/21/22 Hue Meza MD [address] [place] [phone] PCP - General Internal Medicine 12/22/22 Fely Bowens PharmD [address] [place] [phone] Pharmacist Internal Medicine 06/02/24 documented as of this encounter
[2024-08-29 13:23] LABS: Hematocrit 38.6 % (37.0-47.0); Hemoglobin 12.4 g/dl (12.0-16.0); Mean Corpuscular HGB Conc 32.1 g/dl (31.0-35.0); Mean Corpuscular Hemoglobin 29.8 pg (27.0-33.0); Mean Corpuscular Volume 92.8 fL (80.0-98.0); Platelet Count 279 X10*3/uL (160-400); Red Blood Count 4.16 X10*6/uL (4.20-5.50); Red Cell Distribution Width 13.1 % (11.0-16.0); White Blood Count 14.5 X10*3/uL (4.8-10.8)
[2024-08-29 13:33] LABS: Estimated Average Glucose 223 mg/dL; Hemoglobin A1c % 9.4 % (<6.0)
[2024-08-29 13:44] LABS: B Type Natriuretic Peptide 97 pg/mL (<100)
[2024-08-29 14:17] LABS: Alanine Aminotransferase 38 U/L (0-31); Albumin Level 4.2 g/dL (3.5-5.0); Alkaline Phosphatase 121 U/L (39-117); Anion Gap 13 (12-20); Aspartate Amino Transferase 26 U/L (5-31); Bilirubin Total 0.5 mg/dL (0.0-1.0); Blood Urea Nitrogen 14 mg/dL (9-16); Calcium 9.8 mg/dL (8.4-10.2); Carbon Dioxide 32 mmol/L (22-29); Chloride 102 mmol/L (96-108); Cholesterol 226 mg/dL (<200); Estimated Glomerular Filt Rate 54; Gamma Glutamyl Transpeptidase 50 U/L (7-33); Glucose Random 176 mg/dL (60-115); HDL Cholesterol 130 mg/dL (>40); LDL Cholesterol Calculated 78 mg/dL (<100); Potassium 3.7 mmol/L (3.3-5.1); Sodium 143 mmol/L (135-145); Total Protein 7.1 g/dL (6.5-8.0); Triglycerides 92 mg/dL (<150)
[2024-08-29 14:18] LABS: Thyroid Stimulating Hormone 1.15 uIU/mL (0.32-4.0); Vitamin D 25-OH Total 39.1 ng/mL (>30)
[2024-08-29 14:28] LABS: Folate 7.4 ng/mL (> or = 4.0); Vitamin B12 1017 pg/mL (200-900)
[2024-09-01 04:38] LABS: HBsAGNum1 0.23 S/CO (0.00-0.99); Hepatitis B Surface Antigen Negative (Negative); ~HepC Num1 0.13 S/CO (0.00-0.79); ~Hepatitis C Antibody Nonreactive (Nonreactive)
== END 2024-08-29 12:28 | disposition home or self-care (01) ==
LOC: HO.HHCL 12:27
PROVIDERS: Visit Provider Student in an Organized Health Care Education/Training Program
DX: Z00.00 Encounter for general adult medical examination without abnormal findings (principal); R06.00 Dyspnea, unspecified; R74.8 Abnormal levels of other serum enzymes; Z13.1 Encounter for screening for diabetes mellitus
CPT/HCPCS: 36415; 80053; 80061; 82306; 82607; 82746; 82977; 83036; 83880; 84439; 84443; 85027; 86803; 87340

== ENCOUNTER 2024-09-02 11:43 | Outpatient (AMB) | payer OTHER, SELFPAY ==
--- NOTE | 2024-09-02 11:44 | MHC.OFFVIS ---
Vital Signs 09/02/24 11:51 Height 4 ft 11 in Weight 141 lb 8.588 oz BMI 28.6 BP 115/60 Blood Pressure Location Lt brachial Position Sitting Pulse 76 Pulse Source Pulse Oximeter Pulse Oximetry (%) 98 Oxygen Delivery Method Room Air Intake Visit Reasons: RA Intake Note: Patient present for RA follow up. Patient never took Tyenne injection and does not want to continue treatment. Patient c/o of lower back pain and would like an X-ray. Agricultural Aircraft Pilot Required: Yes Agricultural Aircraft Pilot Language: [employer] Services: Agricultural Aircraft Pilot Present Agricultural Aircraft Pilot Name: Chelita [id number] Information Interpreted: non-clinical & clinical Allergies losartan Adverse Reaction (Mild, Verified 09/02/24 11:51) Cough Medication List - Last Reconciled 09/02/24 by Mima Black MD albuterol sulfate 90 mcg/actuation (Ventolin HFA) 2 puffs inhalation Q4-6H PRN 30 days alendronate mg PO amlodipine 5 mg PO DAILY aspirin 81 mg PO BEDTIME atorvastatin 40 mg PO BEDTIME blood sugar diagnostic As directed blood-glucose sensor (Funsherpa Wilmar 3 Sensor device) As directed calcium carbonate-vitamin D3 600 mg-20 mcg (800 unit) 600 tabs PO DAILY carvedilol 3.125 mg PO BID cyanocobalamin (vitamin B-12) 1,000 mcg PO DAILY donepezil 10 mg PO DAILY famotidine mg PO DAILY fluoxetine 10 mg PO DAILY fluticasone propion-salmeterol 500-50 mcg/dose 1 ea PO BID fluticasone propionate 50 mcg/actuation 2 sprays intranasal DAILY furosemide 20 mg PO DAILY gabapentin 300 mg PO BEDTIME Incruse Ellipta 62.5 mcg/actuation (umeclidinium) 1 inh inhalation DAILY NS insulin glargine (Lantus Solostar U-100 Insulin) 100 units subcut DAILY lancets As directed lidocaine 5% 1 patch topical DAILY melatonin 5 mg PO BEDTIME PRN methimazole 10 mg PO BID pantoprazole 40 mg PO QAM pen needle, diabetic As directed prednisone 5 mg PO DIRECTED pyridoxine (vitamin B6) 50 mg PO DAILY 30 days sennosides (Natural Senna Laxative) 8.6 mg PO BEDTIME sitagliptin phosphate (Januvia) 50 mg PO DAILY tocilizumab-aazg (Tyenne Autoinjector) 162 mg (0.9 mL) subcut Q2W HPI Comments Details: Patient is a 78-year-old female with COPD, latent Tb, hypertension c/b stroke with residual aphasia, hyperlipidemia, diabetes, osteopenia with a high FRAX score, and rheumatoid arthritis here today for follow up Interval History: Patient last seen 07/17/24 with me. At that time she reported that the shoulder injection did not help for very long and the Humira did not help her joint pain. There was evidence of synovitis on examination with swelling and tender MCPs and PIPs. She was given prednisone and her medication was changed to Actemra Insurance denied Actemra Tyenne ordered Patient did not start the Tyenne, stating she does not want any further medications Joints improved on prednisone taper, currently on prednisone 5mg Complaining of low back pain Rheumatologic History: ++RF+++CCP dx many years ago. Unknown previous DMARDs SSZ started 08/08 stopped due to transaminitis HCQ 07/2023 DC 10/2023 ineffective Enbrel 01/2024-04/2024 ineffective Humira 04/2024 - 07/2024 Actemra 07/2024 (insurance denied) Tyenne 07/2024 - Current Rheumatology Medication(s): Tyenne 162mg SC every 2 weeks [facility] Medical History (Updated 09/02/24 @ 15:07 by Mima Black MD) Osteoarthritis of acromioclavicular joints, bilateral Latent tuberculosis Restrictive lung disease CAD (coronary artery disease) Asthma Allergic rhinitis COPD exacerbation COPD (chronic obstructive pulmonary disease) Cough Hypertension Diabetes Surgical History History of hysterectomy Hx of CABG Family History Mother Acute arthritis Social History Household Members: Family Housing: Apartment Do you presently have visiting nurse or other home services: Yes ([facility] and [employer]) Alcohol intake: never Patient Tobacco Use Status: Never used Tobacco e-Cigarette/Vaping Use: Never Used Second Hand Smoke Exposure: No service: No Current occupational status: unemployed Review of Systems Const Details: Review of Systems Constitutional: Denies fever, chills, weight loss ENT: Denies vision changes, eye pain or eye redness, dental caries, dry mouth GI: Denies nausea, vomiting, diarrhea, abdominal pain, change in BM Pulm: Denies SOB, JOYA, hemoptysis, wheezing Cards: Denies chest pain, palpitations Skin: Denies Raynaud's, rash, nail changes, photosensitivity, HYDRAULIC BILLET MAKER: Denies headaches, weakness, paresthesias, recurrent falls MSK: as per HPI All other systems reviewed and are unremarkable except noted above Physical Exam Vital Signs: Last Vital Signs Pulse 76 09/02/24 11:51 BP 115/60 09/02/24 11:51 Pulse Ox 98 09/02/24 11:51 Oxygen Delivery Method Room Air 09/02/24 11:51 BMI result Body Mass Index 28.6 Vital signs reviewed Physical Examination CONSTITUITIONAL Elderly female, frail. Examined in chair. Minimally communicative Granddaughter communicates for her using aerial photograph interpreter MSK Hands: ?Able to make a fist. Improved swelling to hands and no TTP of the MCPs and PIPs Wrists: ?Decreased ROM but no TTP of the pain Shoulders: TTP of bilateral shoulders with decreased passive ROM Knees: No TTP Results Reviewed Results Reviewed: Laboratory Tests 03/25/24 07/17/24 08/29/24 10:58 12:40 12:30 WBC 14.5 H RBC 4.16 L Hgb 12.4 Hct 38.6 Plt Count 279 ESR 39 H 44 H Sodium 143 Potassium 3.7 Chloride 102 Carbon Dioxide 32 H BUN 14 Creatinine 1.00 AST 26 ALT 38 H C-Reactive Protein 1.66 H Triglycerides 92 Cholesterol 226 H LDL Cholesterol, Calc 78 HDL Cholesterol 130 25-OH Vitamin D Total 39.1 Rheumatology labs 12/22/21 04/21/22 07/31/23 11:45 13:11 11:37 Rheumatoid Factor 392.2 H Cycl Citrul Peptide IgG >250 H ENMA Screen POSITIVE A ENMA Titer 1:320 H SS-A/Ro Antibody <1.0 NEG SS-B/La Antibody <1.0 NEG Sm (Denise) Antibody <1.0 NEG SM/HOOP MAKER HELPER MACHINE IgG Antibody <1.0 NEG Double Strand DNA Ab 1 Beta-2-GPI IgG Ab <2.0 Beta-2-GPI IgA Ab <2.0 Beta-2-GPI IgM Ab <2.0 Tiss Transglutamin IgG <1.0 Tiss Transglutamin IgA <1.0 Anti-Cardiolipin IgG Ab <2.0 Anti-Cardiolipin IgM Ab <2.0 Complement C3 123 Complement C4 17 Infectious serologies 07/17/24 12:40 Hepatitis A IgM Ab Nonreactive Hep Bs Antigen Negative Hep Bs Antibody NONREACTIVE Hep B Core Total Ab Nonreactive Hepatitis C Ab (EIA) Nonreactive XR L spine 08/2024 FINDINGS: Mild atherosclerotic ossification is visible in the abdominal aorta and common iliac arteries. Mild degenerative changes are present in the SI joints. Faint curvilinear calcification in the suprafoveal right femoral head articular cartilage is likely chondrocalcinosis. There is moderate wedging of the L2 vertebral body with sclerosis of the inferior endplate. L2-3: There is grade 1 retrolisthesis. There are endplate osteophytes. L3-4: There is subtle retrolisthesis, loss disc height, and anterior osteophytes. L4-5: There is mild disc space narrowing and facet sclerosis. L5-S1: There is facet sclerosis and osteophytes. There are anterior osteophytes. IMPRESSION: Age-indeterminate L2 vertebral body compression fracture with moderate loss of height, acute versus chronic. Correlate clinically. Multilevel degenerative disc disease and facet arthropathy. Atherosclerotic disease Suspected chondrocalcinosis involving the right femoral head. Assessment & Plan Assessment & Plan (1) Rheumatoid arthritis: Comment: ++RF+++CCP dx many years ago. Unknown previous DMARDs SSZ started 08/08 stopped due to transaminitis HCQ 07/2023 DC 10/2023 ineffective Enbrel 01/2024-04/2024 ineffective Humira 04/2024 - 07/2024 Actemra 07/2024 (insurance denied) [facility] 07/2024 - Code(s): M06.9 - Rheumatoid arthritis, unspecified Category: Medical Qualifiers: Rheumatoid arthritis location: multiple sites Rheumatoid factor presence: with rheumatoid factor Qualified Code(s): M05.79 - Rheumatoid arthritis with rheumatoid factor of multiple sites without organ or systems involvement Plan: #Seropositive RA Patient is a 78-year-old female with seropositive rheumatoid arthritis. Flare is resolved but patient not on DMARDs. Discussed with patient and daughter, using the aerial photograph interpreter, that she needs to be on a DMARD to control her RA. If she does not want any further medication then she will be discharged from my clinic. Daughter and patient understand and will start the Tyenne. Complete prednisone taper Plan - Tyenne 162mg SC every 2 weeks - Complete prednisone taper - RTC 4 months - Labs before visit: CBC, CMP, ESR, CRP (2) Back pain: Code(s): M54.9 - Dorsalgia, unspecified Qualifiers: Back pain location: low back pain Chronicity: chronic Back pain laterality: midline Sciatica presence: unspecified whether sciatica present Qualified Code(s): M54.50 - Low back pain, unspecified; G89.29 - Other chronic pain Plan: #Low back pain Patient complaining of low back pain XR L spine ordered and resulted showing compression fracture of undetermined age Will follow up with CT Plan - CT L spine (3) Restrictive lung disease: Comment: This patient has had previous chest surgery, has a long mid sternal scar. Pulmonary function test has shown moderately severe restrictive pulmonary disorder. This is mainly the reason for her shortness of breath on exertion. Code(s): J98.4 - Other disorders of lung Category: Medical Plan: #Restrictive lung disease Patient with severe restrictive lung disease. CT scan with no evidence of ILD. Unlikely to be related to her rheumatoid arthritis (4) Osteopenia: Comment: DEXA 04/2022: AP spine -2.0, Left femur neck -2.1, Left femur total -2.1. FRAX 12.8/3.9 Code(s): M85.80 - Other specified disorders of bone density and structure, unspecified site Category: Medical Qualifiers: Osteopenia location: multiple sites Qualified Code(s): M85.89 - Other specified disorders of bone density and structure, multiple sites Plan: #Osteopenia with elevated FRAX score On alendronate Given this new L spine compression fracture, we need to get an updated DEXA scan Vit D at goal (5) Encounter for monitoring tocilizumab therapy: Code(s): Z51.81 - Encounter for therapeutic drug level monitoring; Z79.620 - long-term (current) use of immunosuppressive biologic Plan: #Long-term Use of Tocilizumab Discussed the risks and benefits of tocilizumab with the management of this patient's rheumatic condition. ? Benefits include decreased pain, improved mortality, improved quality of life Risks include LFT abnormalities, elevated triglycerides, GI perforations Contraindicated in a patient with history of diverticulitis Monitoring: ?CBC, CMP, triglycerides (6) Encounter for ongoing osteoporosis therapy, bisphosphonates: Code(s): M81.0 - Age-related osteoporosis without current pathological fracture; Z79.83 - ocean transportation intermediary (current) use of bisphosphonates Plan: #Long-term Use of Bisphosphonates Risks and benefits of bisphosphonates in the management of osteoporosis Benefits include improved bone density, decreased fracture risk Risks include atypical femoral fractures, GI upset, esophageal strictures Contraindicated in patients with a creatinine clearance < 30 to 35 ml/min Keep vitamin-D at least 35 ng/mL Plan I spent 42 minutes reviewing the record and labs, taking a history, examining the patient, discussing the treatment plan and documenting in the medical record Orders: Orders XR lumbar spine 2-3V Today M54.50 - Low back pain, unspecified PT Evaluation and Treatment Today M54.50 - Low back pain, unspecified Comprehensive Met. Panel 4 Months .79 - Rheumatoid arthritis with rheumatoid factor of multiple sites without organ or systems involvement C Reactive Protein 4 Months .79 - Rheumatoid arthritis with rheumatoid factor of multiple sites without organ or systems involvement Erythrocyte Sedimentation Rate 4 Months M05.79 - Rheumatoid arthritis with rheumatoid factor of multiple sites without organ or systems involvement Lipid Panel 4 Months M05.79 - Rheumatoid arthritis with rheumatoid factor of multiple sites without organ or systems involvement XR DEXA axial skeleton Today M81.0 - Age-related osteoporosis without current pathological fracture Complete Blood Count Auto Diff 4 Months .79 - Rheumatoid arthritis with rheumatoid factor of multiple sites without organ or systems involvement Medications: Refilled tocilizumab-aazg (Tyenne Autoinjector) 162 mg (0.9 mL) subcut Q2W 1.8 mL 5RF 5.79 - Rheumatoid arthritis with rheumatoid factor of multiple sites without organ or systems involvement Discontinued prednisone Take 4 pills for 2 weeks then 3 pills for 2 weeks then 2 pills for 2 weeks then 1 pill for 2 weeks then stop Discontinued Reason: Patient Completed Course 5 mg PO DIRECTED 140 tabs 0RF 5.79 - Rheumatoid arthritis with rheumatoid factor of multiple sites without organ or systems involvement, M06.9 - Rheumatoid arthritis, unspecified Coding Level of Care Code Est Pt Level 4 (76533) Complex EM visit Add On G2211 Diagnoses Rheumatoid arthritis involving multiple sites with positive rheumatoid factor . Rheumatoid arthritis location: multiple sites Rheumatoid factor presence: with rheumatoid factor Chronic midline low back pain, unspecified whether sciatica present M54.50; G89.29 Back pain location: low back pain Chronicity: chronic Back pain laterality: midline Sciatica presence: unspecified whether sciatica present Restrictive lung disease J98.4 Osteopenia of multiple sites M85.89 Osteopenia location: multiple sites Encounter for monitoring tocilizumab therapy Z51.81; Z79.620 Encounter for ongoing osteoporosis therapy, bisphosphonates M81.0; Z79.83
[2024-09-02 11:51] VITALS: BP 115/60; PULSE 76; O2SAT 98; BMI 28.6
--- OUTSIDE RECORDS SUMMARY | 2024-09-02 13:23 | XMS_ITS | Encounter Summary ---
Author Organization [employer] Address [address] [place] [address] [place] [address] Care Team Providers Care Event Planning Manager Name Role Phone Cecy Gonzalez Primary Care Provider [phone] Hue Meza MD Primary Care Pro vider Fely Bowens PharmD Unavailable [phone] Reason for Visit * Reason Onset Date Comments Hospital Follow-up 10/26/2022 Encounter Details Date Type Department Care Team (Late st Contact Info) Description 10/26/2022 Telephone [facility] [address] [place] [address] Cecy Gonzalez FNP [address] [place] [address] Dept [place] [address] Hospital Follow-up Social History Tobacco Use Types [...] 12:16 PM EDT Tc from Hue at [facility] Tc from pt requesting a [facility] appt. Pt was admitted at [facility] on 10/22/22 and discharged on 10/25/22. Pt wasdiagnosed with small fracture on the spine Please call pts granddaандрей Solis at [phone] documented in this encounter Plan of Treatment Upcoming Encounters Date Type Department Care Team (Late st Contact Info) Description 09/02/2024 3:30 PM EDT Clinical Support [address] [address] 10/02/2024 10:00 AM EDT Medication Management [address] [address] Fely Bowens PharmD [address] [place] [phone] 10/10/2024 9:30 AM EDT Office Visit [address] [address] Hue Meza MD [address] [place] [phone] documented as of this encounter Visit Diagnoses Not on filedocumented in this encounter Care Teams Event Planning Manager Relationship Specialty Start Date End Date Cecy Gonzalez FNP PCP - General Family Medicine 08/22/22 12/21/22 Hue Meza MD [address] [place] [address] [phone] PCP - General Internal Medicine 12/22/22 Fely Bowens, Jamie [address] [place] [address] [phone] Pharmacist Internal Medicine 06/02/24 documented as of this encounter
== END 2024-09-02 12:16 | disposition home or self-care (01) ==
LOC: HO.RHE 11:43
PROVIDERS: PCP Student in an Organized Health Care Education/Training Program; Visit Provider Student in an Organized Health Care Education/Training Program
DX: M05.79 Rheumatoid arthritis with rheumatoid factor of multiple sites without organ or systems involvement (principal); M54.50 Low back pain, unspecified; G89.29 Other chronic pain; J98.4 Other disorders of lung; M85.89 Other specified disorders of bone density and structure, multiple sites; Z51.81 Encounter for therapeutic drug level monitoring; Z79.620 Long term (current) use of immunosuppressive biologic; M81.0 Age-related osteoporosis without current pathological fracture; Z79.83 Long term (current) use of bisphosphonates
CPT/HCPCS: 99214; G2211

== ENCOUNTER 2024-09-02 11:43 | Outpatient (REF) | payer OTHER, SELFPAY ==
--- NOTE | ~2024-09-02 | XR_ITS ---
EXAMINATION: XR LUMBOSACRAL SPINE CLINICAL INFORMATION: M54.50 - Low back pain, unspecified COMPARISON: None available. TECHNIQUE: Three views of the lumbosacral spine. FINDINGS: Mild atherosclerotic ossification is visible in the abdominal aorta and common iliac arteries. Mild degenerative changes are present in the SI joints. Faint curvilinear calcification in the suprafoveal right femoral head articular cartilage is likely chondrocalcinosis. There is moderate wedging of the L2 vertebral body with sclerosis of the inferior endplate. L2-3: There is grade 1 retrolisthesis. There are endplate osteophytes. L3-4: There is subtle retrolisthesis, loss disc height, and anterior osteophytes. L4-5: There is mild disc space narrowing and facet sclerosis. L5-S1: There is facet sclerosis and osteophytes. There are anterior osteophytes. XR/XR lumbar spine 2-3V IMPRESSION: Age-indeterminate L2 vertebral body compression fracture with moderate loss of height, acute versus chronic. Correlate clinically. Multilevel degenerative disc disease and facet arthropathy. Atherosclerotic disease Suspected chondrocalcinosis involving the right femoral head. Electronically signed by: Jon Miner MD 09/02/2024 01:20 PM EDT
[2024-09-02 17:48] LABS: Creatinine Urine 38.57 mg/dL; Microalbum/Creatinine Ratio Ur 12.9 ug/mg cr (<30)
== END 2024-09-02 11:44 | disposition home or self-care (01) ==
LOC: HO.XRAY 11:43
PROVIDERS: PCP Student in an Organized Health Care Education/Training Program; Visit Provider Student in an Organized Health Care Education/Training Program
DX: Z00.00 Encounter for general adult medical examination without abnormal findings (principal); M54.50 Low back pain, unspecified; M19.011 Primary osteoarthritis, right shoulder; M05.79 Rheumatoid arthritis with rheumatoid factor of multiple sites without organ or systems involvement; M19.012 Primary osteoarthritis, left shoulder; M81.0 Age-related osteoporosis without current pathological fracture; Z79.83 Long term (current) use of bisphosphonates; Z51.81 Encounter for therapeutic drug level monitoring; Z79.620 Long term (current) use of immunosuppressive biologic; M85.89 Other specified disorders of bone density and structure, multiple sites; J98.4 Other disorders of lung; G89.29 Other chronic pain
CPT/HCPCS: 72100; 82043; 82570; 99212

== ENCOUNTER → 2024-09-02 12:34 | Outpatient (BNV) | payer OTHER, SELFPAY | PROVIDERS: PCP Student in an Organized Health Care Education/Training Program; Visit Provider Radiology Diagnostic Radiology | DX: M43.16 Spondylolisthesis, lumbar region (principal) | CPT/HCPCS: 72100 ==

== ENCOUNTER 2024-10-07 10:10 | Outpatient (AMB) | payer OTHER, SELFPAY ==
--- NOTE | 2024-10-07 10:16 | A.OFFVIS_ITS ---
Vital Signs 10/07/24 10:17 Height 4 ft 11 in Weight 141 lb 1.533 oz BMI 28.5 BP 196/81 H Blood Pressure Location Lt brachial Position Sitting Pulse 40 L Pulse Source Pulse Oximeter Pulse Oximetry (%) 95 Oxygen Delivery Method Room Air Intake Visit Reasons: Asthma Intake Note: pt is here for follow up and has a lot of coughing with no production. cough is all day and all night. pt has only been on incruse and albuterol, for some reason Wixela is not at the pharmacy Panel Monitor Required: No Allergies losartan Adverse Reaction (Mild, Verified 10/07/24 10:40) Cough Medication List - Last Reconciled 10/07/24 by Glen Melendez MD albuterol sulfate 90 mcg/actuation (Ventolin HFA) 2 puffs inhalation Q4-6H PRN 30 days alendronate mg PO amlodipine 5 mg PO DAILY aspirin 81 mg PO BEDTIME atorvastatin 40 mg PO BEDTIME blood sugar diagnostic As directed blood-glucose sensor (Onavo Wilmar 3 Sensor device) As directed calcium carbonate-vitamin D3 600 mg-20 mcg (800 unit) 600 tabs PO DAILY carvedilol 3.125 mg PO BID cyanocobalamin (vitamin B-12) 1,000 mcg PO DAILY cyanocobalamin (vitamin B-12) 1,000 mcg PO DAILY donepezil 10 mg PO DAILY famotidine mg PO DAILY fluoxetine 10 mg PO DAILY fluticasone propion-salmeterol 250-50 mcg/dose (Advair Diskus) 1 inh inhalation BID 30 days fluticasone propionate 50 mcg/actuation 2 sprays intranasal DAILY furosemide 20 mg PO DAILY gabapentin 300 mg PO BEDTIME Incruse Ellipta 62.5 mcg/actuation (umeclidinium) 1 inh inhalation DAILY NS insulin glargine (Lantus Solostar U-100 Insulin) 100 units subcut DAILY lancets As directed lidocaine 5% 1 patch topical DAILY melatonin 5 mg PO BEDTIME PRN methimazole 10 mg PO BID pantoprazole 40 mg PO QAM pen needle, diabetic As directed pyridoxine (vitamin B6) 50 mg PO DAILY 30 days sennosides (Natural Senna Laxative) 8.6 mg PO BEDTIME sitagliptin phosphate (Januvia) 50 mg PO DAILY tocilizumab-aazg (Tyenne Autoinjector) 162 mg (0.9 mL) subcut Q2W HPI HPI Asthma: Details: This 78 years old female comes for her 6 months follow-up, accompanied by her granddaughter. She complains of increased shortness of breath on minimal walking and also increased amount of cough. Her cough is daily and worse in the morning and evening, she is using Delsym syrup . With only temporary relief According to the granddaughter cough is worse since she has been out of Advair, which she was using along with Incruse Ellipta. She has had no recent respiratory infections. She is nonsmoker. [facility] Medical History Insomnia Gout Osteoarthritis of acromioclavicular joints, bilateral Latent tuberculosis Restrictive lung disease CAD (coronary artery disease) Asthma Allergic rhinitis COPD exacerbation COPD (chronic obstructive pulmonary disease) Cough Hypertension Diabetes Surgical History History of hysterectomy Hx of CABG Family History Mother Acute arthritis Social History Household Members: Family Housing: Apartment Do you presently have visiting nurse or other home services: Yes ([facility] and [employer]) Alcohol intake: never Patient Tobacco Use Status: Never used Tobacco e-Cigarette/Vaping Use: Never Used Second Hand Smoke Exposure: No service: No Current occupational status: unemployed Review of Systems Const All systems reviewed & are unremarkable except as noted in HPI and below Eyes Reports no additional complaints ENT Reports nasal congestion (Mild off and) Card Denies chest pain and Reports dyspnea on exertion Resp Reports as per HPI and Reports dyspnea on exertion GI Reports no additional complaints Reports no additional complaints Musc Reports back pain Skin/Breast Reports system reviewed and no additional complaints, except as documented Neuro Reports no additional complaints Psych Reports anxiety Endo Reports no additional complaints Uche/Lymph Reports no additional complaints Physical Exam Vital Signs: Last Vital Signs Pulse 40 L 10/07/24 10:17 BP 196/81 H 10/07/24 10:17 Pulse Ox 95 10/07/24 10:17 Oxygen Delivery Method Room Air 10/07/24 10:17 BMI result Body Mass Index 28.5 Const General: comfortable (But short of breath during conversation), no acute distress, alert and awake Orientation/consciousness: patient oriented x3 HEENT Head: Yes normal to inspection General nose exam: No nasal polyps present and No nasal discharge present Face and sinus: Yes sinuses nontender Mouth: oropharynx normal Throat: Yes posterior oropharynx normal Eyes General: appearance normal, both eyes and all related structures Neck Neck: Yes normal visual inspection, Yes no lymphadenopathy, Yes trachea midline and Yes no JVD Thyroid: Thyroid normal Chest Chest palpation & inspection: abnormal inspection of the chest (Midline sternal scar from previous cardiac surgery), normal palpation of entire chest wall and no tenderness Resp Other: Percussion note is resonant, breath sounds are distant with prolonged, expiratory phase No active wheezes or crepitations are heard today. Cardio Palpation: normal PMI Rate: regular rate Rhythm: regular rhythm Heart sounds: no gallops and no murmurs GI Palpation (GI): Soft to palpation, nontender, No hepatosplenomegaly present and no masses Auscultation: normal bowel sounds Back/Spine/Pelvis Thoracic/Lumbar Spine: thoracic and lumbar spine normal to inspection Skin General skin exam: no rashes or lesions noted Neuro General: patient oriented x3 and no focal motor deficits Cranial nerves: Yes CN's II-XII intact bilaterally Extrem General: Yes normal to inspection, Yes no clubbing, cyanosis or edema and Yes no calf tenderness Psych Appearance: grossly normal Speech and movement: Normal speech and movement present Affect: Anxious affect present Assessment & Plan Assessment & Plan (1) COPD (chronic obstructive pulmonary disease): Comment: This patient has long-standing history of chronic obstructive pulmonary disease. She appears to be fairly stable at this time. Pulmonary function test in 2021 showed mostly restrictive pulmonary disorder. But the obstructive component cannot be ruled out. She is doing well on her current Regimen . Code(s): J44.9 - Chronic obstructive pulmonary disease, unspecified Category: Medical Plan: Continue Incruse Ellipta 1 inhalation daily. Also use Advair 250-51 inhalation b.i.d.. Albuterol HFA 2 puffs Q 4-6 hours only p.r.n. (2) Restrictive lung disease: Comment: This patient has had previous chest surgery, has a long mid sternal scar. Pulmonary function test has shown moderately severe restrictive pulmonary disorder. This is mainly the reason for her shortness of breath on exertion. Code(s): J98.4 - Other disorders of lung Category: Medical Plan: She is advised to do deep breathing exercises but she really does not have understanding of how to do it (3) Cough: Comment: Cough is secondary to her chronic restrictive and obstructive pulmonary disease, and reactive airways. The cough seems to have increased since she is not using Advair Code(s): R05 - Cough Category: Medical Plan: She will continue Incruse Ellipta once a day and restart on Advair with the doze reduced to 250-51 inhalation b.i.d. For cough medicine she can continue to use Delsym 1 tsp t.i.d. during the daytime and may use 2 tsp at night. Medications: New fluticasone propion-salmeterol 250-50 mcg/dose (Advair Diskus) 1 inh inhalation BID 60 ea 5RF copd 30 days Coding Level of Care Code Est Pt Level 3 (87265) Diagnoses COPD (chronic obstructive pulmonary disease) J44.9 Restrictive lung disease J98.4 Cough R05
[2024-10-07 10:17] VITALS: BP 196/81; PULSE 40; O2SAT 95; BMI 28.5
--- OUTSIDE RECORDS SUMMARY | 2024-10-07 11:14 | XMS_ITS | Data Portability ---
Author Organization [place] [employer] [facility], [facility] [employer] Address [address] [place] [id number] Care Team Providers Care Executive Sous Chef Name Role Phone [facility] Referring Provider [facility] Referring Provider Assessment Encounter Date Assessment Date Assessment LastModified by Organization Details LastModified Time 07/13/2021 07/13/2021 I have reviewed and agree with the Assessment and Plan as documented by the Ice Guard Inspector. I provided real -time medical direction via phone for this encounter, and was available for additional phone based assistance as needed. Patient given the opportunity to ask questions. [email or web address] Not available 07/13/2021 19:23:03 Plan of Treatment Reminders Order Date Submit Date Provider Last Modified By Organization Details Last Modified Time Details Appointments None recorded. Lab rapid flu (A+B) 2021 [email or web address] 0 [facility], [address] [place] [address], [id number] 18:48:47 glucose, fingerstick , blood 2021 [email or web address], [phone] 18:48:46 rapid SARS CoV 2 Ag, QL IA, respiratory specimen 2021 [email or web address], [phone] 18:48:46 Referral None recorded. Procedures None recorded. Surgeries None recorded. Imaging None recorded. Medication Orders prednisone 20 mg tablet 2021 [email or web address] 0 Not available 18:48:46 prednisone 20 mg tablet 2021 [facility], [address] [place] [address], [id number], 19:01:03 Patient TargetsNo targets recorded. Patient InstructionsNo instructions recorded. Reason for Referral None Reported. Results Created Date Observation Date Name Description Value Unit Range Abnormal Flag Note LastModifiedBy Organization Detail LastModifiedTime 07/14/19 22 07/13/2021 gluco se, finge rstic k, blood Blood Glucose: mg/dl 138 Not Available Main - [facility] [address] [place] [address], [phone] 07/13/2021 18:41:35 07/14/19 22 07/13/2021 rapid SARS CoV 2 Ag, QL IA, respi rator y speci men rapid SARS CoV 2 Ag, QL IA, respiratory specimen negati ve Not Available [facility] ed [address] [place] [address], [phone] 07/13/2021 18:41:44 07/14/19 22 07/13/2021 rapid flu (A+B) Flu negati ve Not Available [facility] ed [address] [place] [address], [phone] 07/13/2021 18:41:29 Result Notes None recorded. Medical [...] Address Organization Details Last Updated DateTime 07/13/2021 40051.93 g Jagdish Clinton [address] [place] [address],[address], [place], [phone], [place] - [employer] 07/13/2021 19:21:29 Date Recorded Respiratory rate Heart rate Body temperature Oxygen saturation Oxygen saturation in Arterial blood by Pulse oximetry Body weight Body temperature Respiratory rate Oxygen saturation Oxygen saturation in Arterial blood by Pulse oximetry Heart rate Systolic And Diastolic Systolic And Diastolic Provider Name and Address Organization Details Last Updated DateTime 2 24 /min 72 /min 98.6 [degF] 97 % 97 % 03646.8 8 g 98.6 [degF] 24 /min 97 % 97 % 72 /min 113/74 mm[Hg] 113/74 mm[Hg] Not Available [employer] - production 19:10:34 [...] Note 1225 Larisa Shaver MD Main - [facility] [address] [place] [phone] 07/13/2021 18:37:50 11/24/2021 18:09:23 Acute exacerbation of chronic obstructive pulmonary disease [id number] J44.1 pat advised can use nebs (albuterol [...] Recorded Advance Directives Directive None Recorded Payers Insurance Date Sequence Insurance Name Policy Number Policy Clark Covered Member ID Clark Member ID Guarantor Name 05/13/2023 1 [facility] - DOS PRIOR TO 2022 - DUAL ELIGIBLE (MEDICARE REPLACEMENT/ADV ANTAGE - HMO) Hue Russell [id number] Hue Russell 05/13/2023 1 [facility] - DOS ON OR AFTER 2022 - DUAL ELIGIBLE - SHELTER OPTIONS AND ONE CARE (MEDICARE REPLACEMENT/ADV ANTAGE - HMO) Hue Russell [id number] Hue Russell Notes Date Note Type Note [...] ..................... ..................... ..................... ..................... ..................... ..................... ............... Ice Guard Inspector Note: Evaluated pt with assistance from supervisor quality control, c/o sob/guillermo. Upon arrival, pt is awake [...] taking her own neb treatment and consulted [facility]. [facility] ordered q4 neb treatments, plenty of fluid intake, 40mg of PO prednisone to be dispensed now with a script to be sent to pharmacy. [facility] detailed treatment plan with request that pt f/u with pcp <48 hours. Went over red flags and no further questions or concerns at this time. ..................... ..................... ..................... ..................... ..................... ..................... ............... Disposition: Fulfilled Larisa Shaver MD [address] [facility],[address], [place], [phone], [employer] 07/13/2021 19:26:34 OBGyn Episode No OBEpisode recorded.
--- OUTSIDE RECORDS SUMMARY | 2024-10-07 11:14 | XMS_ITS | Encounter Summary ---
Author Organization [employer] Address [address] [place] [address] [place] [address] Care Team Providers Care Hydrogen Braze Furnace Operator Name Role Phone Cecy Gonzalez Primary Care Provider [phone] Hue Meza MD Primary Care Pro vider Fely Bowens PharmD Unavailable [phone] Reason for Visit * Reason Onset Date Comments Hospital Follow-up 10/26/2022 Encounter Details Date Type Department Care Team (Late st Contact Info) Description 10/26/2022 Telephone [facility] [address] [place] [address] Cecy Gonzalez FNP [address] [place] [address] Dept [place] [address] Hospital Follow-up Social History Tobacco Use Types [...] 12:16 PM EDT Tc from Hue at [facility] Tc from pt requesting a [facility] appt. Pt was admitted at [facility] on 10/22/22 and discharged on 10/25/22. Pt wasdiagnosed with small fracture on the spine Please call pts granddaандрей Solis at [phone] documented in this encounter Plan of Treatment Upcoming Encounters Date Type Department Care Team (Late st Contact Info) Description 10/10/2024 9:30 AM EDT Office Visit [facility] [address] [place] [address] Hue Meza MD [address] [place] [phone] 11/03/2024 1:00 PM EDT Medication Management [address] [address] Fely Bowens PharmD [address] [place] [phone] documented as of this encounter Visit Diagnoses Not on filedocumented in this encounter Care Teams Hydrogen Braze Furnace Operator Relationship Specialty Start Date End Date Cecy Gonzalez FNP PCP - General Family Medicine 08/22/22 12/21/22 Hue Meza MD [address] [place] [address] PCP - General Internal Medicine 12/22/22 Fely Bowens PharmD [address] [place] [phone] Pharmacist Internal Medicine 06/02/24 documented as of this encounter
== END 2024-10-07 10:38 | disposition home or self-care (01) ==
LOC: HO.HPS 10:11
PROVIDERS: PCP Student in an Organized Health Care Education/Training Program; Visit Provider Internal Medicine
DX: J44.9 Chronic obstructive pulmonary disease, unspecified (principal); J98.4 Other disorders of lung; R05.9 Cough, unspecified
CPT/HCPCS: 99213

== ENCOUNTER → 2024-10-07 10:10 | Outpatient (BNVA) | payer OTHER, SELFPAY | PROVIDERS: PCP Student in an Organized Health Care Education/Training Program; Visit Provider Internal Medicine | DX: R05.3 Chronic cough (principal); J44.9 Chronic obstructive pulmonary disease, unspecified; J98.4 Other disorders of lung | CPT/HCPCS: 99212 ==

== ENCOUNTER 2024-10-10 10:57 | Outpatient (REF) | payer OTHER, SELFPAY ==
--- NOTE | ~2024-10-10 | XR_ITS ---
EXAMINATION: XR CHEST CLINICAL INFORMATION: worsening dry cough and dyspnea COMPARISON: 08/12/2024. 08/16/2023. TECHNIQUE: 2 views of the chest were obtained. FINDINGS: Prior median sternotomy. Probable CABG. The cardiac, hilar, and mediastinal contours are normal. Aortic mural calcification. The lungs are clear bilaterally. Mild pulmonary hyperaeration. There is no pneumothorax or pleural effusion. There is no focal osseous or soft tissue abnormality. There are mild spinal degenerative changes. XR/XR chest 2V IMPRESSION: 1. No active pulmonary disease. No change from 08/12/2024. 2. Sternotomy and probable CABG. Electronically signed by: Nikita Galindo MD 10/10/2024 11:25 AM EDT
--- OUTSIDE RECORDS SUMMARY | 2024-10-10 11:08 | XMS_ITS | Encounter Summary ---
Author Organization [employer] Address [address] [place] [address] [place] [address] Care Team Providers Care Fitter Welder Name Role Phone Cecy Gonzalez Primary Care Provider [phone] Hue Mzea MD Primary Care Pro vider Fely Bowens PharmD Unavailable [phone] Reason for Visit * Reason Onset Date Comments Hospital Follow-up 10/26/2022 Encounter Details Date Type Department Care Team (Late st Contact Info) Description 10/26/2022 Telephone [facility] [address] [place] [address] Cecy Gonzalez FNP [address] [place] [address] Dept [place] [address] Hospital Follow-up Social History Tobacco Use Types [...] 12:16 PM EDT Tc from Hue at [facility] Tc from pt requesting a [facility] appt. Pt was admitted at [facility] on 10/22/22 and discharged on 10/25/22. Pt wasdiagnosed with small fracture on the spine Please call pts granddaughter Irma at [phone] documented in this encounter Plan of Treatment Upcoming Encounters Date Type Department Care Team (Late st Contact Info) Description 11/03/2024 1:00 PM EDT Medication Management [facility] [address] [place] [address] Fely Bowens PharmD [address] [place] [address] documented as of this encounter Visit Diagnoses Not on filedocumented in this encounter Care Teams Fitter Welder Relationship Specialty Start Date End Date Cecy Gonzalez FNP PCP - General Family Medicine 08/22/22 12/21/22 Hue Meza MD [address] [place] [address] [phone] PCP - General Internal Medicine 12/22/22 Fely Bowens PharmD [address] [place] [address] [phone] Pharmacist Internal Medicine 06/02/24 documented as of this encounter
--- OUTSIDE RECORDS SUMMARY | 2024-10-10 11:08 | XMS_ITS | Data Portability ---
Author Organization [place] [employer] [facility] Address [address] [place] [id number] Care Team Providers Care Hotel Office Manager Name Role Phone [facility] Referring Provider [facility] Referring Provider Assessment Encounter Date Assessment Date Assessment LastModified by Organization Details LastModified Time 07/13/2021 07/13/2021 I have reviewed and agree with the Assessment and Plan as documented by the Electric Container Tester. I provided real -time medical direction via phone for this encounter, and was available for additional phone based assistance as needed. Patient given the opportunity to ask questions. [email or web address] Not available 07/13/2021 19:23:03 Plan of Treatment Reminders Order Date Submit Date Provider Last Modified By Organization Details Last Modified Time Details Appointments None recorded. Lab rapid flu (A+B) 2021 [email or web address] 0 [facility], [address] [place] [address], [phone] 18:48:47 glucose, fingerstick , blood 2021 [email or web address], [phone] 18:48:46 rapid SARS CoV 2 Ag, QL IA, respiratory specimen 2021 [email or web address], [phone] 18:48:46 Referral None recorded. Procedures None recorded. Surgeries None recorded. Imaging None recorded. Medication Orders prednisone 20 mg tablet 2021 [email or web address] 0 Not available 18:48:46 prednisone 20 mg tablet 2021 [facility], [address] [place] [address], [id number], 19:01:03 Patient TargetsNo targets recorded. Patient InstructionsNo instructions recorded. Reason for Referral None Reported. Results Created Date Observation Date Name Description Value Unit Range Abnormal Flag Note LastModifiedBy Organization Detail LastModifiedTime 07/14/19 22 07/13/2021 gluco se, finge rstic k, blood Blood Glucose: mg/dl 138 Not Available [facility] [address] [place] [address], [phone] 07/13/2021 18:41:35 07/14/19 22 07/13/2021 rapid SARS CoV 2 Ag, QL IA, respi rator y speci men rapid SARS CoV 2 Ag, QL IA, respiratory specimen negati ve Not Available [facility] ed [address] [place] [address], [phone] 07/13/2021 18:41:44 07/14/19 22 07/13/2021 rapid flu (A+B) Flu negati ve Not Available [facility] ed [address] [place] [address], [phone] 07/13/2021 18:41:29 Result Notes None recorded. Medical [...] Address Organization Details Last Updated DateTime 07/13/2021 74029.93 g Jagdish Clinton [address] [place] [address],[address], [place], [address], [place] [facility] [place] 07/13/2021 19:21:29 Date Recorded Respiratory rate Heart [...] /min 98.6 [degF] 97 % 97 % 61498.8 8 g 98.6 [degF] 24 /min 97 [...] Note 1225 [facility]aver [facility] [address] [place] [phone] 07/13/2021 18:37:50 11/24/2021 18:09:23 Acute exacerbation of chronic obstructive pulmonary disease [id number] J44.1 pat advised can use nebs (albuterol [...] (MEDICARE REPLACEMENT/ADV ANTAGE - HMO) Hue Russell [phone] Hue Russell 05/13/2023 1 [facility] - DOS ON OR AFTER 2022 - DUAL ELIGIBLE - LONG-TERM OPTIONS AND ONE CARE (MEDICARE REPLACEMENT/ADV ANTAGE - HMO) Hue Russell [phone] Hue Russell Notes Date Note Type Note Provider Name and Address Organization Details Recorded Time 07/13/2021 text/html ROS as noted in the HPI HPI: Patient reports having SOB on exertion, and wheezing. Using rescue inhaler and nebulizer more frequently. Also having very dry cough. Denies any fever, CP or NAVA. Pt has hx of COPD. Unable to come to our walk in for evaluation. Could hear some expiratory wheezing during call . Pt states SOB is worse than baseline. ..................... ..................... ..................... ..................... ..................... ..................... ............... Electric Container Tester Note: Evaluated pt with assistance from agricultural real estate agent, c/o sob/guillermo. Upon arrival, pt is awake [...] taking her own neb treatment and consulted [facility] ordered q4 neb treatments, plenty of fluid intake, 40mg of PO prednisone to be dispensed now with a script to be sent to pharmacy. [facility] detailed treatment plan with request that pt f/u with pcp <48 hours. Went over red flags and no further questions or concerns at this time. ..................... ..................... ..................... ..................... ..................... ..................... ............... Disposition: Fulfilled Larisa Shaver MD [address] [facility],[address], [place], [address], [facility] [place] 07/13/2021 19:26:34 OBGyn Episode No OBEpisode recorded.
== END 2024-10-10 10:58 | disposition home or self-care (01) ==
LOC: HO.HHCX 10:57
PROVIDERS: Visit Provider Student in an Organized Health Care Education/Training Program
DX: J44.1 Chronic obstructive pulmonary disease with (acute) exacerbation (principal)
CPT/HCPCS: 71046

== ENCOUNTER → 2024-10-10 10:58 | Outpatient (BNV) | payer OTHER, SELFPAY | PROVIDERS: Visit Provider Radiology Diagnostic Radiology | DX: R06.00 Dyspnea, unspecified (principal) | CPT/HCPCS: 71046 ==

== ENCOUNTER 2024-10-23 13:56 | Outpatient (AMB) | payer OTHER, SELFPAY ==
--- OUTSIDE RECORDS SUMMARY | 2024-10-23 14:06 | XMS_ITS | Encounter Summary ---
Author Organization [employer] Address [address] [facility] [address] [place] [address] Care Team Providers Care Audience Coordinator Name Role Phone Cecy Gonzalez [facility] Primary Care Provider Hue Fish MD Primary Care Pro vider Fely Bowens PharmD Unavailable [phone] Reason for Visit * Reason Onset Date Comments Hospital Follow-up 10/26/2022 Encounter Details Date Type Department Care Team (Late st Contact Info) Description 10/26/2022 Telephone [facility] MEDICINE [address] [place] [address] Cecy Gonzalez FNP Hospital Follow-up Social History Tobacco Use Types [...] 12:16 PM EDT Tc from [facility] at [facility] Tc from pt requesting a [facility] appt. Pt was admitted at [facility] on 10/22/22 and discharged on 10/25/22. Pt wasdiagnosed with small fracture on the spine Please call pts granddaughter Irma at [phone] documented in this encounter Plan of Treatment Upcoming Encounters Date Type Department Care Team (Late st Contact Info) Description 11/03/2024 1:00 PM EDT Medication Management [facility] MEDICINE [address] [place] [address] [phone] Fely Bowens PharmD [address] [place] [address] [phone] documented as of this encounter Visit Diagnoses Not on filedocumented in this encounter Care Teams Audience Coordinator Relationship Specialty Start Date End Date Cecy Gonzalez FNP PCP - General Family Medicine 08/22/22 12/21/22 Hue Meza MD [address] [place] [address] [phone] PCP - General Internal Medicine 12/22/22 Fely Bowens PharmD [address] [place] [address] [phone] Pharmacist Internal Medicine 06/02/24 documented as of this encounter
--- NOTE | 2024-10-23 14:19 | MHC.OFFVIS ---
Vital Signs 10/23/24 14:20 Height 4 ft 11 in Intake Visit Reasons: AD/ Med refill Veterinary X Ray Operator Services: Veterinary X Ray Operator Offered & Declined (Granddaughter will translate) Accompanied by: Grand Child Allergies losartan Adverse Reaction (Mild, Verified 10/23/24 14:25) Cough Medication List - Last Reconciled 10/23/24 by Klaudia Marion CNP albuterol sulfate 90 mcg/actuation (Ventolin HFA) 2 puffs inhalation Q4-6H PRN 30 days alendronate mg PO amlodipine 5 mg PO DAILY aspirin 81 mg PO BEDTIME atorvastatin 40 mg PO BEDTIME blood sugar diagnostic As directed blood-glucose sensor (ioSemanticsStyle Wilmar 3 Sensor device) As directed calcium carbonate-vitamin D3 600 mg-20 mcg (800 unit) 600 tabs PO DAILY carvedilol 3.125 mg PO BID cyanocobalamin (vitamin B-12) 1,000 mcg PO DAILY cyanocobalamin (vitamin B-12) 1,000 mcg PO DAILY donepezil 10 mg PO DAILY famotidine mg PO DAILY fluoxetine 10 mg PO DAILY fluticasone propion-salmeterol 250-50 mcg/dose (Advair Diskus) 1 inh inhalation BID 30 days fluticasone propionate 50 mcg/actuation 2 sprays intranasal DAILY furosemide 20 mg PO DAILY gabapentin 300 mg PO BEDTIME Incruse Ellipta 62.5 mcg/actuation (umeclidinium) 1 inh inhalation DAILY NS insulin glargine (Lantus Solostar U-100 Insulin) 100 units subcut DAILY lancets As directed lidocaine 5% 1 patch topical DAILY melatonin 5 mg PO BEDTIME PRN methimazole 10 mg PO BID pantoprazole 40 mg PO QAM pen needle, diabetic As directed pyridoxine (vitamin B6) 50 mg PO DAILY 30 days sennosides (Natural Senna Laxative) 8.6 mg PO BEDTIME sitagliptin phosphate (Januvia) 50 mg PO DAILY tocilizumab-aazg (Tyenne Autoinjector) 162 mg (0.9 mL) subcut Q2W HPI Comments Details: 78-year-old woman with IDDM, COPD, HTN, tardive dyskinesia, and Alzheimer dementia. She was doing okay. Memory was about the same. She needed refill of donepezil. No medication side effects. No falls. Mood was so-so. Sleep was not so good. [facility] Medical History (Updated 10/23/24 @ 14:35 by Klaudia Marion CNP) Insomnia Gout Osteoarthritis of acromioclavicular joints, bilateral Latent tuberculosis Restrictive lung disease CAD (coronary artery disease) Asthma Allergic rhinitis COPD exacerbation COPD (chronic obstructive pulmonary disease) Cough Hypertension Diabetes Surgical History History of hysterectomy Hx of CABG Family History Mother Acute arthritis Social History Household Members: Family Housing: Apartment Do you presently have visiting nurse or other home services: Yes ([facility] and [facility]) Alcohol intake: never Patient Tobacco Use Status: Never used Tobacco e-Cigarette/Vaping Use: Never Used Second Hand Smoke Exposure: No service: No Current occupational status: unemployed Review of Systems Const Denies chills, Denies daytime sleepiness, Reports difficulty sleeping, Denies fatigue, Denies fever(s), Denies frequent falls, Denies headache(s), Denies increased appetite, Reports poor appetite, Denies snoring, Denies weakness, Denies weight gain and Denies weight loss Eyes Denies loss of vision ENT Denies vertigo, Denies dizziness and Denies headache(s) Card Denies chest pain at rest, Denies chest pain with activity, Denies syncope, Denies leg edema and Denies palpitations Resp Denies snoring GI Denies constipation, Denies heartburn, Denies diarrhea and Denies nausea Denies urinary frequency, Denies urinary incontinence and Denies urinary urgency Musc Denies abnormal gait, Denies numbness and Denies tingling Skin/Breast Denies dry skin and Denies rash Neuro Denies abnormal gait, Denies vertigo, Denies dizziness, Denies syncope, Denies frequent falls, Denies headache(s), Denies lack of coordination, Denies loss of vision, Reports memory loss, Denies numbness, Denies restless legs, Denies seizure-like activity, Denies tingling, Denies paresthesias, Denies tremor(s) and Denies weakness Psych Denies anxiety, Denies depression, Denies auditory hallucinations, Reports memory loss, Denies visual hallucinations and Denies suicidal ideation Endo Denies fatigue and Denies palpitations Physical Exam Const Other: General Appearance:? normal, in no acute distress. Skin:? no rashes, no significant birthmarks. Heart:? S1, S2 normal, no murmurs. Lungs:? clear anteriorly and posteriorly. Extremities:? no edema. Psych:? alert, cooperative with exam. Neuro Other: Mental Status:?Alert and awake with no signs of distress. She was able to tell me her age, date, and that she was here with her granddaughter. Follows commands. Cranial Nerves:?Pupils are equal, round and reactive to light. External occular muscles are intact. Visual burrell are full. Face is symmetrical. Facial sensations are normal. Tongue is midline. Palate elevates symmetrically. Shoulder shrugging is normal. Hearing to bedside conversation is normal. Motor Examination:?DTRs are trace in knees, absent in ankles, with withdrawing plantars..? Coordination:?No ataxia,?no titubation.? Gait Exam: Cautious. Extrapyramidal System:?Mild orobuccal dyskinesia ? Pronator Drift:?Not present.? Involuntary Movements:?No tremors seen.? Speech:?Normal.? Results Reviewed Results Reviewed: CT brain [place] [facility] [place]: mild diff atrophy. Assessment & Plan Assessment & Plan (1) Alzheimer disease: Code(s): G30.9 - Alzheimer's disease, unspecified; F02.80 - Dementia in other diseases classified elsewhere, unspecified severity, without behavioral disturbance, psychotic disturbance, mood disturbance, and anxiety Category: Medical Plan: Continue donepezil 10mg 1 tablet at bedtime. (2) Tardive dyskinesia: Code(s): G24.01 - Drug induced subacute dyskinesia Category: Medical (3) Insomnia: Code(s): G47.00 - Insomnia, unspecified Category: Medical Qualifiers: Insomnia type: unspecified Qualified Code(s): G47.00 - Insomnia, unspecified Plan . Medications: Changed From donepezil 10 mg PO DAILY To donepezil 10 mg PO DAILY 90 tabs 1RF 90 days Coding Level of Care Code Est Pt Level 3 (29058) Diagnoses Alzheimer disease G30.9; F02.80 Tardive dyskinesia G24.01 Insomnia, unspecified type G47.00 Insomnia type: unspecified
== END 2024-10-23 14:37 | disposition home or self-care (01) ==
LOC: HO.HSM 13:57
PROVIDERS: Visit Provider Registered Nurse
DX: G30.9 Alzheimer's disease, unspecified (principal); F02.80 Dementia in other diseases classified elsewhere, unspecified severity, without behavioral disturbance, psychotic disturbance, mood disturbance, and anxiety; G24.01 Drug induced subacute dyskinesia; G47.00 Insomnia, unspecified
CPT/HCPCS: 99213

== ENCOUNTER → 2024-10-23 13:56 | Outpatient (BNVA) | payer OTHER, SELFPAY | PROVIDERS: Visit Provider Registered Nurse | DX: E11.9 Type 2 diabetes mellitus without complications (principal); Z79.4 Long term (current) use of insulin; I10 Essential (primary) hypertension; J44.9 Chronic obstructive pulmonary disease, unspecified; G30.9 Alzheimer's disease, unspecified; F02.80 Dementia in other diseases classified elsewhere, unspecified severity, without behavioral disturbance, psychotic disturbance, mood disturbance, and anxiety; G24.01 Drug induced subacute dyskinesia; G47.00 Insomnia, unspecified | CPT/HCPCS: 99212 ==

== ENCOUNTER 2024-11-27 10:56 | Outpatient (REF) | payer OTHER, SELFPAY ==
--- NOTE | ~2024-11-27 | MM_ITS ---
EXAMINATION: DXA BONE DENSITY AXIAL HISTORY: M81.0 - Age-related osteoporosis without current pathological fracture TECHNIQUE: amprice Dual energy absorptiometry (DEXA) of the lumbar spine, total left hip, and femoral neck was performed. COMPARISON: Comparison is made with the prior examination dated 05/03/2022. FINDINGS: The bone mineral density of the lumbar spine is 0.998 g/cm2, corresponding to a T-score of -1.4, and a Z-score of 0.5. This is indicative of osteopenia. This represents a BMD change of 10.8% compared to the prior exam. This is statistically significant. The bone mineral density of the left total hip is 0.713 g/cm2, corresponding to a T-score of -2.3, and a Z-score of -0.3. This is indicative of osteopenia. This represents a BMD change of -4.4% compared to the prior exam. This is not statistically significant. The bone mineral density of the left femoral neck is 0.674 g/cm2, corresponding to a T-score of -2.6, and a Z-score of -0.4. This is indicative of osteoporosis. This represents a BMD change of -9.3% compared to the prior exam. MM/XR DEXA axial skeleton IMPRESSION: Based on bone mineral density, and according to World Health Organization (WHO) criteria, the diagnosis is consistent with osteoporosis. Statistically, 68% of repeat scans fall within 1 SD (+/- 0.010 g/cm2 for AP spine L1-L4) and 1 SD (+/- 0.012 g/cm2 for femur total) FRAX is a trademark of the [employer]'s [employer] Met[employer], a World Health Organization (WHO) Collaborating Center. Electronically signed by: Theron Nelson MD 11/27/2024 11:53 AM EDT
--- OUTSIDE RECORDS SUMMARY | 2024-11-27 15:05 | XMS_ITS | Encounter Summary ---
Author Organization [employer] Address [address] [place] [address] Care Team Providers Care Third Steel Pourer Name Role Phone Cecy Gonzalez [facility] Primary Care Provider Hue Fish MD Primary Care Pro vider Fely Bowens PharmD Unavailable [phone] Reason for Visit * Reason Onset Date Comments Hospital Follow-up 10/26/2022 Encounter Details Date Type Department Care Team (Late st Contact Info) Description 10/26/2022 Telephone [facility] [address] [place] [address] Cecy Gonzalez FNP Hospital Follow-up Social History [...] 12:16 PM EDT Tc from Hue at [facility] Tc from pt requesting a [facility] appt. Pt was admitted at [facility] [place] [place] on 10/22/22 and discharged on 10/25/22. Pt wasdiagnosed with small fracture on the spine Please call pts granddaughter Irma at [phone] documented in this encounter Plan of Treatment Upcoming Encounters Date Type Department Care Team (Late st Contact Info) Description 01/05/2025 10:30 AM EDT Medication Management [facility] [address] [place] [id number] [phone] Fely Bowens PharmD [address] [place] [address] [phone] documented as of this encounter Visit Diagnoses Not on filedocumented in this encounter Care Teams Third Steel Pourer Relationship Specialty Start Date End Date Cecy Gonzalez FNP PCP - General Family Medicine 08/22/22 12/21/22 Hue Meza MD [address] [place] [address] [phone] PCP - General Internal Medicine 12/22/22 Fely Bowens PharmD [address] [place] [address] [phone] Pharmacist Internal Medicine 06/02/24 documented as of this encounter
--- OUTSIDE RECORDS SUMMARY | 2024-11-27 15:05 | XMS_ITS | Encounter Summary ---
Author Organization [employer] Address [address] [facility] 7t [place] [address] Care Team Providers Care Environmental Sciences Professor Name Role Phone Hue Meza MD Primary Care Pro vider Fely Bowens PharmD Unavailable [phone] Encounter Details Date Type Department Care Team (Late st Contact Info) Description 11/27/2024 Orders Only [facility] External Provider, [facility] Social History Tobacco Use Types Packs/Day Years Used Date Smoking Tobacco: Never Smokeless Tobacco: Never Alcohol Use Standard Drinks/Week Comments Never 0 (1 standard drink = 0.6 oz pur e alcohol) Depression Answer Date Recorded Patient Health Questionnaire-9 Score 10 08/12/2024 Patient Health Questionnaire-9 Score 10 08/12/2024 Last PHQ-9: Questionnaire Data Not on file 0 08/12/2024 Housing Stability Answer Date Recorded What is your housing situation today? I have arron lynn 11/30/[address] you li [...] Answer Date Recorded Patient Health Questionnaire-2 Score 4 08/12/2024 Internet Access Answer Date Recorded Internet Access [...] Upcoming Encounters Date Type Department Care Team ([facility] st Contact Info) Description 01/05/2025 10:30 AM EDT Medication Management [facility] [address] [place], [place] [phone] Fely Bowens, BessyD [address] [place], [place] [phone] documented as of this encounter Goals Goal Patient Goal Type Associated Problems Recent Progress Patient-Stated? Author Blood Pressure < 140/90 Blood Pressure 138/52(2024 9:36 AM EDT) No Boby Anand Hemoglobin A1c < 8 Result Component 9.4( 12:30 PM EDT) No Boby Anand documented as of this encounter Procedures Procedure Name Priority Date/Time Associated Diagnosis Comments HIGH SENSITIVITY TROPONIN I Routine 11/27/2024 2:14 PM EDT CBC WITH AUTO DIFFERENTIAL Routine 11/27/2024 2:14 PM EDT TSH Routine 11/27/2024 2:14 PM EDT MAGNESIUM Routine 11/27/2024 2:14 PM EDT COMPREHENSIVE METABOLIC PANEL Routine 11/27/2024 2:14 PM EDT BD DEXA AXIAL Routine 11/27/2024 11:15 AM EDT documented in this encounter Results * TSH (11/27/2024 2:14 PM EDT) Thyroid Stimulating Hormone 1.20 0.32 - 4.0 uIU/mL [facility] Comment:TSH 3rd Generation ( [facility]) 11/27/2024 2:14 PM EDT 11/27/2024 2:16 PM EDT Generic External Data Provider LAB BLOOD ORDERAB LES Final Result Performing Organization Address [facility] Co de Phone Number [facility] [address] [place] [phone] * Magnesium (11/27/2024 2:14 PM EDT) Pathologist [facility] Magnesium 2.3 1.6 - 2.6 mg/dL [facility] 11/27/2024 2:14 PM EDT 11/27/2024 2:16 PM EDT Generic External Data Provider LAB BLOOD ORDERAB LES Final Result Performing Organization Address [facility] de Phone Number [facility] [address] [place] [phone] * (ABNORMAL) Comprehensive Metabolic Panel (11/27/2024 2:14 PM EDT) Pathologist [facility] Sodium 144 135 - 145 mmol/L [facility] Potassium 4.3 3.3 - 5.1 mmol/L [facility] Comment:Slight Hemolysis.Int erpret result with caution. Chloride 107 96 - 108 mmol/L [facility] Carbon Dioxide 30(H) 22 - 29 mmol/L [facility] Anion Gap 11(L) 12 - 20 [facility] Urea Nitrogen (BUN) 15 9 - 16 mg/dL [facility] Creatinine, Serum 1.02 0.5 - 1.4 mg/dL [facility] Creatinine Clr Calc Pharmacy 37.3 [facility] Comment:Provided height and weight: 149.86 cm,65.3 kg.eGFR (calculated from the MDRD study equation) and eCrCl(calculated from the Cockcroft-Gault equation) are based ondifferent parameters and may not yield comparable results.If eCrCl result is absurd, please check patient'sheight/weight. Estimated Glomerular Filt Rate 52 [facility] Comment:Chronic Kidney Disea se: Estimated GFR < 60 mL/min/1.33q7Eogmjz Kidney Disease: Estimated GFR < 15 mL/min/1.73m2 Glucose 138(H) 60 - 115 mg/dL [facility] Calcium 8.8 8.4 - 10.2 mg/dL [facility] Bilirubin, Total 0.4 0.0 - 1.0 mg/dL [facility] Aspartate Amino Transferase 47(H) 5 - 31 U/L [facility] Comment:Slight Hemolysis.Int erpret result with caution. Alanine Aminotransferase 29 0 - 31 U/L [facility] Total Protein 7.3 6.5 - 8.0 g/dL [facility] Albumin Level 4.2 3.5 - 5.0 g/dL [facility] Alkaline Phosphatase 106 39 - 117 U/L [facility] 11/27/2024 2:14 PM EDT 11/27/2024 2:16 PM EDT us Generic External Data Provider LAB BLOOD ORDERAB LES Final Result [facility] [address] [place] [phone] * High Sensitivity Troponin I (11/27/2024 2:14 PM EDT) TROPONIN I HIGH SENSITIVITY 7.5 <3.5 - 17.0 ng/L [facility] Comment:The [employer] high sens itivity Troponin-I results should beused in conjunction with other diagnostic information suchas ECG, clinical observations and information, and patientsymptoms to aid in the diagnosis of ID. 11/27/2024 2:14 PM EDT 11/27/2024 2:16 PM EDT us Generic External Data Provider LAB BLOOD ORDERAB LES Final Result [facility] [address] [place] [phone] * (ABNORMAL) CBC auto differential (11/27/2024 2:14 PM EDT) White Blood Count 8.2 4.8 - 10.8 X10*3/uL [facility] Red Blood Count 4.26 4.20 - 5.50 X10*6/uL [facility] Hemoglobin 12.9 12.0 - 16.0 g/dl [facility] Hematocrit 39.5 37.0 - 47.0 % [facility] Mean Corpuscular Volume 92.7 80.0 - 98.0 fL [facility] Mean Corpuscular Hemoglobin 30.3 27.0 - 33.0 pg [facility] Mean Corpuscular HGB Conc 32.7 31.0 - 35.0 g/dl [facility] Red Cell Distribution Width 13.5 11.0 - 16.0 % [facility] Platelet Count 238 160 - 400 X10*3/uL [facility] Mean Platelet Volume 11.0 9.4 - 12.3 fL [facility] Neutrophils Percent Auto 45.4 45 - 73 % [facility] Imm Gran Pct Auto 0.2 0.0 - 0.4 % [facility] Lymphocytes Percent Auto 34.3 20 - 40 % [facility] Monocytes Percent Auto 13.8(H) 2 - 11 % [facility] Eosinophils Percent Auto 5.6(H) 0 - 4 % [facility] Basophils Percent Auto 0.7 0 - 2 % [facility] NRBC Pct Auto 0.0 0.0 - 0.2 /100WBC [facility] Neutrophils Absolute Auto 3.7 2.0 - 8.3 x10*3/uL [facility] Imm Gran Abs Auto 0.02 0.00 - 0.03 X10*3/uL [facility] Lymphocytes Absolute Auto 2.8 1.2 - 4.9 X10*3/uL [facility] Monocytes Absolute Auto 1.1 0.1 - 1.2 X10*3/uL [facility] Eosinophils Absolute Auto 0.5(H) 0.0 - 0.4 X10*3/uL [facility] Basophils Absolute Auto 0.1 0.0 - 0.2 X10*3/uL [facility] NRBC Abs Auto 0.000 0.0 - 0.012 X10*3/uL [facility] 11/27/2024 2:14 PM EDT 11/27/2024 2:16 PM EDT us Generic External Data Provider LAB BLOOD ORDERAB LES Final Result [facility] [address] [place] [phone] * BD DEXA Axial (11/27/2024 11:15 AM EDT) Anatomical Region Laterality Modality Body Radiographic Azul ging 11/27/2024 11:1 5 AM EDT Narrative 11/27/2024 11:55 AM EDT [facility] [address] [place] [address] Mammography Report Signed Patient: Hue Murphy MR#: [id number] : 1945 Acct:[id number] Age/Sex: 78 / F ADM Date: 11/27/24 Loc: HO.MAMMO Attending Dr: Mima Black MD Ordering Physician: Mima Black MD Results: Date of Service: 11/27/24 Follow Up: Procedure(s): XR DEXA axial skeleton Accession Number(s): [id number] cc: Mima Black MD; Hue Meza MD EXAMINATION: DXA BONE DENSITY AXIAL HISTORY: M81.0 - Age-related osteoporosis without current pathological fracture TECHNIQUE: [employer] Dual energy absorptiometry (DEXA) of the lumbar spine, total left hip, and femoral neck was performed. COMPARISON: Comparison is made with the prior examination dated 05/03/2022. FINDINGS: The bone mineral density of the lumbar spine is 0.998 g/cm2, corresponding to a T-score of -1.4, and a Z-score of 0.5. This is indicative of osteopenia. This represents a BMD change of 10.8% compared to the prior exam. This is statistically significant. The bone mineral density of the left total hip is 0.713 g/cm2, corresponding to a T-score of -2.3, and a Z-score of -0.3. This is indicative of osteopenia. This represents a BMD change of -4.4% compared to the prior exam. This is not statistically significant. The bone mineral density of the left femoral neck is 0.674 g/cm2, corresponding to a T-score of -2.6, and a Z-score of -0.4. This is indicative of osteoporosis. This represents a BMD change of -9.3% compared to the prior exam. MM/XR DEXA axial skeleton IMPRESSION: Based on bone mineral density, and according to World Health Organization (WHO) criteria, the diagnosis is consistent with osteoporosis. Statistically, 68% of repeat scans fall within 1 SD (+/- 0.010 g/cm2 for AP spine L1-L4) and 1 SD (+/- 0.012 g/cm2 for femur total) FRAX is a trademark of the [employer] Metabolic Bone Disease, a World Health Organization (WHO) Collaborating Center. Electronically signed by: Theron Nelson MD 11/27/2024 11:53 AM EDT Dictated By: Theron Nelson MD Signed By: <Electronically signed by Theron Nelson MD in OV> 11/27/24 1153 DD/ 1115 TD/TT: 11/27/24 1149 Bottom Precipitator Operator: Procedure Note Donotuseinterpreter, Image - 09/11/2025 [facility] [address] [place] [address] Mammography Report Signed Patient: Hue Murphy [facility]#: [id number] : 6Acct:[id number] Age/Sex: 78 / FADM Date: 11/27/24 Loc: HO.MAMMO Attending Dr: Mima Black MD Ordering Physician: Mima Blackesults: Date of Service: 11/27/24Follow Up: Procedure(s): XR DEXA axial skeleton Accession Number(s): [id number] cc: Mima Black MD; Hue Meza MD EXAMINATION: DXA BONE DENSITY AXIAL HISTORY: M81.0 - Age-related osteoporosis without current pathological fracture TECHNIQUE: [employer] Dual energy absorptiometry (DEXA) of the lumbar spine, total left hip, and femoral neck was performed. COMPARISON: Comparison is made with the prior examination dated 05/03/2022. FINDINGS: The bone mineral density of the lumbar spine is 0.998 g/cm2, corresponding to a T-score of -1.4, and a Z-score of 0.5. This is indicative of osteopenia. This represents a BMD change of 10.8% compared to the prior exam. This is statistically significant. The bone mineral density of the left total hip is 0.713 g/cm2, corresponding to a T-score of -2.3, and a Z-score of -0.3. This is indicative of osteopenia. This represents a BMD change of -4.4% compared to the prior exam. This is not statistically significant. The bone mineral density of the left femoral neck is 0.674 g/cm2, corresponding to a T-score of -2.6, and a Z-score of -0.4. This is indicative of osteoporosis. This represents a BMD change of -9.3% compared to the prior exam. MM/XR DEXA axial skeleton IMPRESSION: Based on bone mineral density, and according to World Health Organization (WHO) criteria, the diagnosis is consistent with osteoporosis. Statistically, 68% of repeat scans fall within 1 SD (+/- 0.010 g/cm2 for AP spine L1-L4) and 1 SD (+/- 0.012 g/cm2 for femur total) [employer] is a trademark of the [employer] Metabolic Bone Disease, a World Health Organization (WHO) Collaborating Center. Electronically signed by: Theron Nelson MD 11/27/2024 11:53 AM EDT RP Dictated By: Theron Nelson MD Signed By: <Electronically signed by Theron Nelson MD in OV> 11/27/24 1153 DD/ 1115 TD/TT: 11/27/24 1149 Bottom Precipitator Operator: [facility] External Provider IMG DXA PROCEDURES Final Result documented in this encounter Visit Diagnoses Not on filedocumented in this encounter Additional Health Concerns Assessment Noted Time PHQ-9 Depression Total Score: 10 08/12/ 025 11:07 AM EDT documented as of this encounter Care Teams Environmental Sciences Professor Relationship Specialty Start Date End Date Hue Meza MD [address] [place] [phone] PCP - General Internal Medicine 12/22/22 Fely Bowens PharmD [address] [place] [phone] Pharmacist Internal Medicine 06/02/24 documented as of this encounter
--- OUTSIDE RECORDS SUMMARY | 2024-11-27 15:05 | XMS_ITS | Encounter Summary ---
Author Organization [email or web address] Address [address] [facility] 7t [place] [address] Care Team Providers Care Rehabilitation Director Name Role Phone Hue Meza MD Primary Care Pro vider Fely Bowens PharmD Unavailable [phone] Encounter Details Date Type Department Care Team (Late st Contact Info) Description 11/27/2024 Results Follow-Up [facility] [address] [place], [place] [phone] Hue Meza MD [address] [place], [place] [phone] BD DEXA Axial Social History Tobacco Use Types Packs/Day Years [...] as of this encounter Miscellaneous Notes * Result Encounter Note - Hue Lopez MD - 11/27/2024 12:19 PM EDT Ordered by her data acquisition technician documented in this encounter Plan of Treatment Upcoming Encounters Date Type Department Care Team (Late st Contact Info) Description 01/05/2025 10:30 AM EDT Medication Management [facility] [address] [place] [address] Fely Bowens, PharmD [address] [place] [address] documented as of this encounter Goals Goal Patient Goal Type Associated Problems Recent Progress Patient-Stated? Author Blood Pressure < 140/90 Blood Pressure 138/52(2024 9:36 AM EDT) Boby Connelly Hemoglobin A1c < 8 Result Component 9.4( 12:30 PM EDT) No Boby Anand documented as of this encounter Visit Diagnoses Not on filedocumented in this encounter Additional Health Concerns Assessment Noted Time PHQ-9 Depression Total Score: 10 025 11:07 AM EDT documented as of this encounter Care Teams Rehabilitation Director Relationship Specialty Start Date End Date Hue Meza MD [address] [place], [place] [phone] PCP - General Internal Medicine 12/22/22 Fely Bowens PharmD [address] [place] [phone] Pharmacist Internal Medicine 06/02/24 documented as of this encounter
--- OUTSIDE RECORDS SUMMARY | 2024-11-27 15:05 | XMS_ITS | Encounter Summary ---
Author Organization [email or web address] Address 75 [facility] 7t [place] [address] Care Team Providers Care Skate Maker Name Role Phone Hue Meza MD Primary Care Pro vider Fely Bowens PharmD Unavailable [phone] Reason for Visit * Reason Comments Med Refill Encounter Details Date Type Department Care Team (Late st Contact Info) Description 11/25/2024 Refill [facility] [address] [place], [place] [phone] Zoila Romero MD [address] [place], [place] [phone] Essential hypertension Social History Tobacco Use Types [...] Description 01/05/2025 10:30 AM EDT Medication Management [facility] [address] [place] [address] Fely Bowens PharmD [address] [place], [place] [phone] documented as of this encounter Goals Goal [...] documented as of this encounter Care Teams Skate Maker Relationship Specialty Start Date End Date Hue Meza MD 230 [place] [address] PCP - General Internal Medicine 12/22/22 Fely Bowens, BessyD [address] [place] [phone] Pharmacist Internal Medicine 06/02/24 documented as of this encounter
--- OUTSIDE RECORDS SUMMARY | 2024-11-27 15:05 | XMS_ITS | Encounter Summary ---
Author Organization [employer] Address [address] [facility] 7t [place] [address] Care Team Providers Care Milking Machine Operator Name Role Phone Hue Meza MD Primary Care Pro vider Fely Bowens PharmD Unavailable [phone] Reason for Visit * Reason Comments Med Refill Encounter Details Date Type Department Care Team (Late st Contact Info) Description 12/06/2023 Refill [facility] [address] [place], [place] [phone] Racheal Mcclain, PharmD 230 [place], [place] [phone] Social History Tobacco Use Types Packs/Day Years [...] Description 01/05/2025 10:30 AM EDT Medication Management [facility] [address] [place], [place] [phone] Fely Bowens PharmD [address] [place], [place] [phone] documented as of this encounter Goals Goal [...] documented as of this encounter Care Teams Milking Machine Operator Relationship Specialty Start Date End Date Hue Meza MD 230 [place] [address] PCP - General Internal Medicine 12/22/22 Fely Bowens BessyD [address] [place] [phone] Pharmacist Internal Medicine 06/02/24 documented as of this encounter
--- OUTSIDE RECORDS SUMMARY | 2024-11-27 15:05 | XMS_ITS | Encounter Summary ---
Author Organization [employer] Address [address] [facility] 7t [place] [address] Care Team Providers Care Framing Manager Name Role Phone Hue Meza MD Primary Care Pro vider Fely Bowens PharmD Unavailable [phone] Reason for Visit * Reason Comments Med Refill Encounter Details Date Type Department Care Team (Late st Contact Info) Description 12/28/2022 Refill [facility] [address] [place] [address] Cecy Gonzalez, AVIS Dementia without behavioral disturbance, psychotic disturbance, mood [...] Description 01/05/2025 10:30 AM EDT Medication Management [facility] [address] [place] [phone] Fely Bowens PharmD 230 [place], [place] [phone] documented as of this encounter Goals Goal [...] documented as of this encounter Care Teams Framing Manager Relationship Specialty Start Date End Date Hue Meza MD [address] [place] [address] [phone] PCP - General Internal Medicine 12/22/22 Fely Bowens PharmD [address] [place] [address] [phone] Pharmacist Internal Medicine 06/02/24 documented as of this encounter
--- OUTSIDE RECORDS SUMMARY | 2024-11-27 15:05 | XMS_ITS | Encounter Summary ---
Author Organization [facility] Address [address] [facility] 7t [place] [address] Care Team Providers Care Court Manager Name Role Phone Cecy Gonzalez PAYROLL AUDITOR Primary Care Provider Hue Fish MD Primary Care Pro vider Fely Bowens PharmD Unavailable [phone] Reason for Visit * Reason Comments Med Refill Encounter Details Date Type Department Care Team (Late st Contact Info) Description 12/12/2022 Refill [facility] 230 [place] [address] Cecy Gonzalez FNP Primary hypertension Social History Tobacco Use Types [...] Description 01/05/2025 10:30 AM EDT Medication Management [facility] 230 [place], [place] [phone] Fely Bowens, PharmD [address] [place], [place] [phone] documented as of this encounter Goals Goal [...] documented as of this encounter Care Teams Court Manager Relationship Specialty Start Date End Date Cecy Gonzalez FNP PCP - General Family Medicine 08/22/22 12/21/22 Hue Meza MD [address] [place] [phone] PCP - General Internal Medicine 12/22/22 Fely Bowens PharmD [address] [place] [phone] Pharmacist Internal Medicine 06/02/24 documented as of this encounter
--- OUTSIDE RECORDS SUMMARY | 2024-11-27 15:05 | XMS_ITS | Encounter Summary ---
Author Organization [employer] Address 75 [facility] 7t [place] [address] Care Team Providers Care Exhibitions Curator Name Role Phone Hue Meza MD Primary Care Pro vider Fely Bowens PharmD Unavailable [phone] Encounter Details Date Type Department Care Team (Late st Contact Info) Description 10/10/2024 Results Follow-Up [facility] [address] [place] [address] Hue Meza MD 230 [place] [address] XR Chest 2 Views Social History Tobacco Use Types Packs/Day Years [...] Encounter Note - Hue Lopez MD - 10/10/2024 1:33 PM EDT Please inform pt of CXR done today showing No active pulmonary disease. No change from 08/12/2024. Thanks documented in this encounter Plan of Treatment Upcoming Encounters Date Type Department Care Team (Late st Contact Info) Description 01/05/2025 10:30 AM EDT Medication Management [facility] [address] [place] [address] Fely Bowens, PharmD [address] [place] [address] documented as of this encounter Goals Goal [...] documented as of this encounter Care Teams Exhibitions Curator Relationship Specialty Start Date End Date Hue Meza MD [address] [place] [address] PCP - General Internal Medicine 12/22/22 Fely Bowens PharmD [address] [place] [phone] Pharmacist Internal Medicine 06/02/24 documented as of this encounter
--- OUTSIDE RECORDS SUMMARY | 2024-11-27 15:05 | XMS_ITS | Encounter Summary ---
Author Organization [employer] Address 75 [facility] 7t [place] [address] Care Team Providers Care Lunchroom Monitor Name Role Phone Hue Meza MD Primary Care Pro vider Fely Bowens PharmD Unavailable [phone] Reason for Visit * Reason Comments Med Refill Encounter Details Date Type Department Care Team (Late st Contact Info) Description 01/24/2023 Refill [facility] 230 [place], [place] [phone] Hue Meza MD [address] [place], [place] [phone] Closed fracture dislocation of lumbar spine, sequela Social History Tobacco Use Types Packs/Day Years Used Date Smoking Tobacco: Unknown Depression Answer Date Recorded Patient Health Questionnaire-9 Score 15 12/05/2022 Housing Stability Answer Date Recorded What is your housing situation today? I have arron bailey 01/03/[address] you li [...] Description 01/05/2025 10:30 AM EDT Medication Management [facility] [address] [place], [place] [phone] Fely Bowens PharmD [address] [place], [place] [phone] documented as of this encounter Goals Goal [...] documented as of this encounter Care Teams Lunchroom Monitor Relationship Specialty Start Date End Date Hue Meza MD [address] [place] [address] [phone] PCP - General Internal Medicine 12/22/22 Fely Bowens PharmD [address] [place] [address] [phone] Pharmacist Internal Medicine 06/02/24 documented as of this encounter
--- OUTSIDE RECORDS SUMMARY | 2024-11-27 15:05 | XMS_ITS | Encounter Summary ---
Author Organization [employer] Address 75 [facility] 7t [place] [address] Care Team Providers Care Viticulture Teacher Name Role Phone Hue Meza MD Primary Care Pro vider Fely Bowens PharmD Unavailable [phone] Reason for Visit * Reason Comments Med Refill Encounter Details Date Type Department Care Team (Late st Contact Info) Description 10/10/2024 Refill [facility] 230 [place], [place] [phone] Hue Meza MD 230 [place], [place] [phone] Social History Tobacco Use Types Packs/Day Years [...] Description 01/05/2025 10:30 AM EDT Medication Management [facility] 230 [place], [place] [phone] Fely Bowens PharmD 230 [place], [place] [phone] documented as of this encounter Goals Goal [...] documented as of this encounter Care Teams Viticulture Teacher Relationship Specialty Start Date End Date Hue Meza MD [address] [place] [address] PCP - General Internal Medicine 12/22/22 Fely Bowens, PharmD [address] [place] [phone] Pharmacist Internal Medicine 06/02/24 documented as of this encounter
--- OUTSIDE RECORDS SUMMARY | 2024-11-27 15:05 | XMS_ITS | Encounter Summary ---
Author Organization [facility] Address [address] [facility] [address] [place] [address] Care Team Providers Care Sustainability Purchasing Agent Name Role Phone Cash Arevalo MD Primary Care Provider Unava Cecy Moralez Primary Care Provider Debra vailaCecy Brown Primary Care Provider Debra vailable Hue Meza MD Primary Care Pro vider Fely Bowens PharmD Unavailable [phone] Encounter Details Date Type Department Care Team (Late st Contact Info) Description 03/23/2022 Telephone [facility] [address] [place] [address] [phone] Cash Arevalo MD Social History Tobacco Use [...] Description 01/05/2025 10:30 AM EDT Medication Management [facility] [address] [place], [place] [phone] Fely Bowens, PharmD [address] [place] [address] documented as of this encounter Visit Diagnoses Not on filedocumented in this encounter Care Teams Sustainability Purchasing Agent Relationship Specialty Start Date End Date Cash Arevalo MD PCP - General Family Medicine 01/29/19 03/23/22 Cecy Gonzalez FNP PCP - General Family Medicine 03/24/22 08/21/22 Cecy Gonzalez FNP PCP - General Family Medicine 08/22/22 12/21/22 Hue Meza MD [address] [place] [id number] PCP - General Internal Medicine 12/22/22 Fely Bowens PharmD [address] [place] [phone] Pharmacist Internal Medicine 06/02/24 documented as of this encounter
--- OUTSIDE RECORDS SUMMARY | 2024-11-27 15:05 | XMS_ITS | Encounter Summary ---
Author Organization [facility] Address [address] [facility] 7[address] [place] [address] Care Team Providers Care Car Storer Name Role Phone Cecy Gonzalez RADIOLOGIC ELECTRONIC SPECIALIST Primary Care Provider Debra vailable Cecy Gonzalez RADIOLOGIC ELECTRONIC SPECIALIST Primary Care Provider Debra vailable Hue Meza MD Primary Care Pro vider Fely Bowens PharmD Unavailable [phone] Encounter Details Date Type Department Care Team (Late st Contact Info) Description 05/15/2022 Orders Only [facility] [address] [place] [address] Lindsey Ascencio LPN Social History Tobacco Use [...] Department Care Team (Late Contact Info) Description 01/05/2025 10:30 AM EDT Medication Management [facility] [address] [place], [place] [phone] Fely Bowens, PharmD [address] [place], [place] [phone] documented as of this encounter Procedures Procedure Name Priority Date/Time Associated Diagnosis Comments T4, FREE Routine 11/02/2022 2:27 PM EDT documented in this encounter Results * T4, Free (11/02/2022 2:27 PM EDT) Free T4 (Free Thyroxine) 1.72 0.71 - 1.85 ng/dL [facility] 11/02/2022 2:27 PM EDT 11/02/2022 4:03 PM EDT us Cecy [facility] BLOOD ORDERABLES Final Result [facility] [address] [place] [address] [phone] documented in this encounter Visit Diagnoses Not on filedocumented in this encounter Care Teams Car Storer Relationship Specialty Start Date End Date Cecy Gonzalez FNP PCP - General Family Medicine 03/24/22 08/21/22 Cecy Gonzalez FNP PCP - General Family Medicine 08/22/22 12/21/22 Hue Meza MD [address] [place] [address] PCP - General Internal Medicine 12/22/22 Fely Bowens PharmD [address] [place] [phone] Pharmacist Internal Medicine 06/02/24 documented as of this encounter
--- OUTSIDE RECORDS SUMMARY | 2024-11-27 15:05 | XMS_ITS | Encounter Summary ---
Author Organization [employer] Address [address] [facility] 7[address] [place] [address] Care Team Providers Care Television Script Writer Name Role Phone Cash Arevalo MD Primary Care Provider Debrava Cecy Moralez Primary Care Provider Debra vailaCecy Brown Primary Care Provider Debra vailable Hue Meza MD Primary Care Pro vider Fely Bowens PharmD Unavailable [phone] Reason for Visit * Reason Onset Date Comments transfer pt appt 03/23/2022 Encounter Details Date Type Department Care Team (Late st Contact Info) Description 03/23/2022 Telephone [facility] [address] [place] [address] Cash Arevalo MD transfer pt appt Social [...] Description 01/05/2025 10:30 AM EDT Medication Management [facility] [address] [place] [address] Fely Bowens PharmD [address] [place] [address] documented as of this encounter Visit Diagnoses Not on filedocumented in this encounter Care Teams Television Script Writer Relationship Specialty Start Date End Date Cash Arevalo MD PCP - General Family Medicine 01/29/19 03/23/22 Cecy Gonzalez FNP PCP - General Family Medicine 03/24/22 08/21/22 eCcy Gonzalez FNP PCP - General Family Medicine 08/22/22 12/21/22 Hue Meza MD [address] [place], [place] [phone] PCP - General Internal Medicine 12/22/22 Fely Bowens PharmD [address] [place] [address] [phone] Pharmacist Internal Medicine 06/02/24 documented as of this encounter
--- OUTSIDE RECORDS SUMMARY | 2024-11-27 15:05 | XMS_ITS | Clinical Summary ---
Author Organization [employer] Address [address] [place] [address] Care Team Providers Care Lead Simulation Modeling Engineer Name Role Phone Hue Meza MD Primary Care Pro vider Fely Bowens PharmD Unavailable [phone] Allergies Active Allergy Reactions Criticality Noted Date Comments Losartan Cough 10/17/2023 Medications methIMAzole (Tapazole) 10 MG tablet Take 1 tablet by mouth in the morning and 1 tablet at noon and 1 tablet in the evening. Per granddaughter once a day . 023 Active donepezil (Aricept) 10 MG tabletIndicatio ns:Dementia without behavioral disturbance, psychotic disturbance, mood disturbance, or anxiety, unspecified dementia severity, unspecified dementia type (CMS/HCC) TAKE 1 TABLET BY MOUTH AT BEDTIME 28 tablet 3 023 Active Blood Pressure Monitor kitIndications: Annual physical exam 1 kit in the morning. 1 kit 023 Active glucose blood (FREESTYLE LITE) test stripIndication s:Type 2 diabetes mellitus with other specified complication, unspecified whether fdc insulin use (CMS/HCC) TEST BLOOD SUGAR 3 TIMES A DAY 100 strip 11 024 Active glucose blood (FreeStyle Precision Feroz Test) test stripIndication s:Type 2 diabetes mellitus with other specified complication, with long-term current use of insulin (CMS/HCC) Test blood sugar q 8 hours 100 each 12 024 Active Continuous Glucose Telemarketing Sales Representative (FreeStyle [place] 3 [place]) device 1 each Once per day. 1 each 024 Active Calcium Carbonate-Vit D-Min (Calcium-Vitami n D-Minerals) 600-800 MG-UNIT chewable tablet Chew 1 tablet with breakfast and with evening meal. 180 tablet 3 024 Active pantoprazole (ProtoNix) 40 MG EC tablet TAKE 1 TABLET BY MOUTH EVERY MORNING 30 MINUTES BEFORE BREAKFAST 024 Active insulin glargine (Lantus SoloStar) 100 UNIT/ML penIndications: Type 2 diabetes mellitus without complication, with long-term current use of insulin ([facility]) Inject 20 Units under the skin at bedtime. 15 mL 5 024 2024 Active TRUEplus Lancets 33G misc TEST BLOOD SUGAR THREE TIMES DAILY 100 each 024 Active Easy Touch Pen [place] 31G X 8 MM misc USE ONCE DAILY WITH LANTUS 100 each 024 Active Acetaminophen Extra Strength 500 MG tablet 024 Active senna (Senokot) 8.6 MG tablet TAKE 1 TABLET BY MOUTH AT BEDTIME FOR CONSTIPATION 025 Active pyridoxine (Vitamin B-6) 50 MG tablet TAKE 1 TABLET BY MOUTH EVERY MORNING 90 tablet 1 025 Active Continuous Glucose Sensor (FreeStyle Wilmar 3 Sensor) miscIndications :Type 2 diabetes mellitus with other specified complication, with long-term current use of insulin ([facility]) USE DIRECTED 2 each 3 025 Active gabapentin (Neurontin) 300 MG capsuleIndicati ons:Neuropathy TAKE 1 CAPSULE BY MOUTH AT BEDTIME 30 capsule 5 025 Active Aspirin Low Dose 81 MG EC tabletIndicatio ns:Atherosclero sis of coronary artery of [place] heart, unspecified vessel or lesion type, unspecified whether angina present TAKE 1 TABLET BY MOUTH EVERY MORNING 90 tablet 1 025 Active Enbrel SureClick 50 MG/ML injection 025 Active insulin lispro (HumaLOG) 200 UNIT/ML solution pen-injector penIndications: Type 2 diabetes mellitus with other specified complication, with long-term current use of insulin ([facility]) Sliding scale, to use insuline with meals 150 to 200 2 units, 201 to 250 3 units, 251 to 300 4 units , > 300 5 units 1 each 2 Active atorvastatin (Lipitor) 40 MG tablet TAKE 1 TABLET BY MOUTH EVERY MORNING 90 tablet 1 Active glucose 4 g chewable tablet Chew 4 tablets (16 g) if needed for low blood sugar. 50 tablet 12 025 2025 Active Tyenne 162 MG/0.9ML solution auto-injector Active furosemide (Lasix) 20 MG tabletIndicatio ns:Chronic diastolic (congestive) heart failure (CMS/HCC) TAKE 1 TABLET BY MOUTH EVERY MORNING 90 tablet Active FLUoxetine (PROzac) 10 MG capsule TAKE 1 CAPSULE BY MOUTH EVERY MORNING 90 capsule Active famotidine (Pepcid) 20 MG tablet TAKE 1 TABLET BY MOUTH EVERY MORNING 90 tablet Active Diclofenac Sodium (Voltaren) 1 % gel Apply 2 g topically if needed in the morning and at bedtime (muscle pain). 100 g 2 Active albuterol (Ventolin HFA) 108 (90 Base) MCG/ACT inhaler Inhale 2 puffs every 4 (four) hours if needed for shortness of breath. 18 g 11 Active empagliflozin-l inagliptin (Glyxambi) 10-5 MG Take 1 tablet by mouth Once per day. 90 tablet 2025 Active predniSONE (Deltasone) 20 MG tablet 2 tabs po daily for 5 days 10 tablet Active alendronate (Fosamax) 70 MG tablet Take 1 tablet (70 mg) by mouth every 7 (seven) days. Take in the morning with a full glass of water, on an empty stomach, and do not take anything else by mouth or lie down for the next 30 min. 4 tablet 11 2025 Active cyanocobalamin (Vitamin B-12) 500 MCG tablet Take 1 tablet (500 mcg) by mouth 1 (one) time per week. TAKE 1 TABLET weekly 90 tablet 1 Active albuterol (2.5 MG/3ML) 0.083% nebulizer solution Active Trelegy Ellipta 200-62.5-25 MCG/ACT aerosol powder INHALE 1 PUFF BY MOUTH EVERY DAY AT THE SAME TIME RINSE MOUTH AFTER USING 025 Active Continuous Glucose Sensor (FreeStyle Wil[place] 3 Plus Sensor) misc 1 each every 15 days. Apply 1 every 15 days as directed for CGM 2 each Active carvedilol (Coreg) 3.125 MG tabletIndicatio ns:Essential hypertension TAKE 1 TABLET BY MOUTH TWICE DAILY IN THE MORNING AND IN THE EVENING WITH FOOD 180 tablet 025 Active amLODIPine (Norvasc) 5 MG tablet TAKE 1 TABLET BY MOUTH EVERY EVENING 90 tablet 025 Active Incruse Ellipta 62.5 MCG/ACT aerosol powder Take 1 Inhalation by mouth Once daily. 023 2024 Discontinued(M ed list cleanup (will not trigger notification to Pharmacy)) amLODIPine (Norvasc) 5 MG tablet TAKE 1 TABLET BY MOUTH EVERY EVENING 90 tablet 025 2024 Discontinued carvedilol (Coreg) 3.125 MG tabletIndicatio ns:Essential hypertension TAKE 1 TABLET BY MOUTH TWICE DAILY IN THE MORNING AND IN THE EVENING WITH FOOD 180 tablet 025 2024 Discontinued Fluticasone-Sourav meterol 250-50 MCG/ACT aerosol powder 025 2024 Discontinued(M ed list cleanup (will not trigger notification to Pharmacy)) Active Problems Problem Noted Date Diagnosed Date Acute exacerbation of chroni c obstructive pulmonary disease (COPD) 10/10/2024 Senile purpura 10/10/2024 Dizziness 08/12/2024 Eye lesion 08/12/2024 Diabetic retinopathy 08/12/2024 Leukocytosis 08/12/2024 Eosinophilia 08/12/2024 Anemia 08/12/2024 Hyperthyroidism 08/07/2024 Biliary dyskinesia 04/22/2024 Overview (04/22/2024): S/p HIDA [...] Rheumatoid arthritis 03/04/2023 Lumbar vertebral fracture 03/04/2023 Assessment & Plan (09/02/2024 2:28 PM EDT): Pt attended and participated in chronic pain group today - good engagement with group model of care - continue to use combination of non-pharmacological modalities to address pain - followup in three weeks for chronic pain group Health care maintenance 03/04/2023 Graves disease 12/22/2022 [...] contacted yet for f/u by TB clinic [facility] Assessment & Plan (12/21/2022 11:17 AM EDT): Provider called [facility] TB during visit requesting status of appt. No answer Also gave family phone number to call [facility] TB directly RTC if cough worsens F/u [...] Last Dental Exam: N, referral sent to [facility] 07/2023 Assessment & Plan (11/05/2023 [...] contacted yet for f/u by TB clinic [facility] Provider called [facility] TB during visit requesting status of appt. No answer Also gave family phone number to call [facility] TB directly RTC if cough worsens F/u PRN Assessment & Plan (11/02/2022 6:31 PM EDT): Wheezing noted exam Recommended SANTOS use PRN F/u PRN Obstructive sleep apnea syndrome 10/13/2014 Gastroparesis 12/10/2013 Osteopenia 09/24/2012 Hyperlipidemia 06/27/2012 Atherosclerosis of coronary artery of [place] heart with other form of angina pectoris, unspecified vessel or lesion type 06/18/2012 Assessment & Plan (12/21/2022 11:13 AM EDT): Refill aspirin for medbox program F/u PRN Diabetic polyneuropathy 06/18/2012 Resolved Problems Problem Noted Date Diagnosed Date Resolved Date Chronic cough 08/17/2023 10/17/2023 Encounters Date Type Department Care Team Description 11/27/2024 Results Follow-Up [facility] [address] [place] [address] Hue Meza MD BD DEXA Axial 11/27/2024 Orders Only [facility] External Provider, [facility] 11/25/2024 Refill [facility] [address] [place] [address] Zoila Romero MD Essential hypertension 11/18/2024 Telephone [facility] [address] [place] [address] Hue Meza MD Appointment 11/10/2024 Refill [facility] [address] [place] [address] Hue Meza MD 10/29/2024 Telephone [facility] [address] [place] [address] Hue Meza MD oct recall 10/20/2024 Telephone [facility] [address] [place] [address] Hue Meza MD Durable Medical Equipment 10/10/2024 9:30 AM EDT Office Visit [facility] [address] [place] [address] Hue Meza MD COPD exacerbation ([facility]) (Primary Dx); Essential hypertension; Type 2 diabetes mellitus with other specified complication, with long-term current use of insulin (CMS/[facility]); Health care maintenance; Acute exacerbation of chronic obstructive pulmonary disease (COPD) (CMS/[facility]); Senile purpura (CMS/HCC) 10/10/2024 Telephone [facility] [place] [address] Hue Meza MD Error (VOID this visit) 10/10/2024 Results Follow-Up [facility] [place] [address] Hue Meza MD XR Chest 2 Views 10/10/2024 Refill [facility] [place] [address] Hue Meza MD 10/10/2024 Travel 10/09/2024 Telephone [facility] [place] [address] Hue Meza MD chartprep 10/01/2024 Orders Only [facility] [place] [address] Hue Meza MD Type 2 diabetes mellitus with diabetic polyneuropathy, with long-term current use of insulin ([facility]) (Primary Dx) 10/01/2024 Telephone [facility] [place] [address] Hue Meza MD 09/25/2024 Refill [facility] [address] [place], [place] [phone] Hue Meaz MD Chronic diastolic (congestive) heart failure ([facility]) 09/25/2024 Refill [facility] [address] [place] [address] Zoila Romero MD 09/16/2024 11:00 AM EDT Clinical Support [facility] [place] [address] Juanis Gustafson RN Essential hypertension; Type 2 diabetes mellitus with other specified complication, with long-term current use of insulin (CMS/HCC) 09/16/2024 Travel 09/02/2024 3:30 PM EDT Clinical Support [facility] [place] [address] Wing Solano RN Essential hypertension 09/02/2024 Results Follow-Up [facility] [address] [place] [address] Hue Meza MD XR Lumbar Spine 2-3 Views 09/02/2024 Travel 09/01/2024 11:00 AM EDT Office Visit [facility] [address] [place] [address] Sarah Moya MD Closed fracture of lumbar vertebra, unspecified fracture morphology, unspecified lumbar vertebral level, sequela (Primary Dx); Abdominal pain, unspecified abdominal location; Rheumatoid arthritis, involving unspecified site, unspecified whether rheumatoid factor present (CMS/HCC); Diabetic polyneuropathy associated with type 2 diabetes mellitus (CMS/HCC) 09/01/2024 Travel 08/30/2024 Travel 08/29/2024 Orders Only [facility] [address] [place] [address] Hue Meza MD from Last 3 Months Immunizations Immunization Administration Dates Next Due Hep B, adult [...] Sign Reading Time Taken Comments Blood Pressure 138/52 10/10/2024 9:36 AM EDT Pulse 69 10/10/2024 9:36 AM EDT Temperature 36.2 C (97.1 F) 10/10/2024 9:36 AM EDT Respiratory Rate 20 10/10/2024 9:36 AM EDT Oxygen Saturation 99% 10/10/2024 9:36 AM EDT Inhaled Oxygen Concentration - - Weight 64.8 kg (142 lb 12.8 oz) 10/10/2024 9:36 AM EDT Height 152.4 cm (5') 10/10/2024 9:36 AM EDT Body Mass Index 27.89 10/10/2024 9:36 AM EDT Plan of Treatment Upcoming Encounters Date Type Department Care Team (Late st Contact Info) Description 01/05/2025 10:30 AM EDT Medication Management [facility] [address] [place], [place] [phone] Fely Bowens, PharmD [address] [place] [address] Health Maintenance Due Date Last Done Comments Diabetes: Foot Exam 12[birth year]17/1955 Eye Exam 12/17/1955 COVID-19 Vaccine ( season) 2024 12/24/2023, 03/02/2023, 01/31/2021, Additional history exists Influenza Vaccine (#1) 2024 , 03/02/2023, 11/28/2018, Additional history exists Diabetes: Hemoglobin A1C 11/29/2024 025, 06/02/2024, 02/05/2024, Additional history exists SDOH Screening 11/29/2024 11/30/2023 Depression Monitoring 02/12/2025 08/12/2024, 025 Alcohol/Substance Use Screening 08/12/2025 08/12/2024 Lipid Panel 08/29/2025 08/29/2024, 01/17, 03/20/2023 Diabetes: Urine Protein Screening 09/02/2025 09/02/2024, 02/05/2024, 12/22/2021, Additional history exists Tobacco Screening 10/10/2025 10/10/2024 DTaP/Tdap/Td Vaccines (3 - Td or Tdap) 01/29/2033 01/29/2023, 08/20/2012 Pneumococcal Vaccine: 50+ Years Completed 01/29/2023, 08/14/2014, 11/20/2012 RSV Patients and Patients Aged 60 years or older Completed 12/24/2023 Hepatitis B Vaccines Completed 06/02/2024, 03/15/2017, 02/07/2017 Zoster Vaccines Completed 06/02/2024, 09/2023, 06/09/2013 Hepatitis C Screening Completed 08/29/2024, 024 HIB Vaccines Aged Out No longer eligi [...] patient's age to complete this topic Meningococcal B Vaccine Aged Out No l onger eligible based on patient's age to complete [...] 9.4( 12:30 PM EDT) No Boby Anand Procedures Procedure Name Priority Date/Time Associated Diagnosis Comments TSH Routine 11/27/2024 2:14 PM EDT MAGNESIUM Routine 11/27/2024 2:14 PM EDT COMPREHENSIVE METABOLIC PANEL Routine 11/27/2024 2:14 PM EDT HIGH SENSITIVITY TROPONIN I Routine 11/27/2024 2:14 PM EDT CBC WITH AUTO DIFFERENTIAL Routine 11/27/2024 2:14 PM EDT BD DEXA AXIAL Routine 11/27/2024 11:15 AM EDT XR CHEST 2 VIEWS Routine 10/10/2024 10:2 0 AM EDT COPD exacerbation (CMS/HCC) ALBUMIN, RANDOM URINE W/CREATININE Routine 09/02/2024 2:28 PM EDT Health care maintenance XR LUMBAR SPINE 2-3 VIEWS Routine 09/02/2024 12:40 PM EDT GGT Routine 08/29/2024 12:30 PM EDT Elevated alkaline phosphatase level B TYPE NATRIURETIC PEPTIDE (BNP) Routine 08/29/2024 12:30 PM EDT Dyspnea, unspecified type VITAMIN D,25-OH,TOTAL,IA Routine 08/29/2024 12:30 PM EDT Health care maintenance VITAMIN B12/FOLATE, SERUM PANEL Routine 08/29/2024 12:30 PM EDT Health care maintenance T4, FREE Routine 08/29/2024 12:30 PM EDT Health care maintenance TSH Routine 08/29/2024 12:30 PM EDT Health care maintenance LIPID PANEL, STANDARD Routine 08/29/2024 12:30 PM EDT Health care maintenance HEPATITIS C AB W/REFL TO HCV RNA, QN, PCR Routine 08/29/2024 12:30 PM EDT Health care maintenance HEPATITIS B SURFACE ANTIGEN, EIA Routine 08/29/2024 12:30 PM EDT Health care maintenance HEMOGLOBIN A1C Routine 08/29/2024 12:30 PM EDT Health care maintenance COMPREHENSIVE METABOLIC PANEL Routine 08/29/2024 12:30 PM EDT Health care maintenance CBC Routine 08/29/2024 12:30 PM EDT Health care maintenance from Last 3 Months Results * High Sensitivity Troponin I (11/27/2024 2:14 PM EDT) Pathologist [facility] TROPONIN I HIGH SENSITIVITY 7.5 <3.5 - 17.0 ng/L [facility] Comment:The [facility] high sens itivity Troponin-I results should beused in conjunction with other diagnostic information suchas ECG, clinical observations and information, and patientsymptoms to aid in the diagnosis of OR. 11/27/2024 2:14 PM EDT 11/27/2024 2:16 PM EDT us Generic External Data Provider LAB BLOOD ORDERAB LES Final Result [facility] [address] [place] [address] [phone] * (ABNORMAL) CBC auto differential (11/27/2024 2:14 PM EDT) [facility] White Blood Count 8.2 4.8 - 10.8 X10*3/uL [facility] Red Blood Count 4.26 4.20 - 5.50 X10*6/uL [facility] Hemoglobin 12.9 12.0 - 16.0 g/dl [facility] Hematocrit 39.5 37.0 - 47.0 % [facility] Mean Corpuscular Volume 92.7 80.0 - 98.0 fL [facility] Mean Corpuscular Hemoglobin 30.3 27.0 - 33.0 pg [facility] Mean Corpuscular HGB Conc 32.7 31.0 - 35.0 g/dl [facility] Red Cell Distribution Width 13.5 11.0 - 16.0 % [facility] Platelet Count 238 160 - 400 X10*3/uL [facility] Mean Platelet Volume 11.0 9.4 - 12.3 fL [facility] Neutrophils Percent Auto 45.4 45 - 73 % [facility] Imm Gran Pct Auto 0.2 0.0 - 0.4 % [facility] Lymphocytes Percent Auto 34.3 20 - 40 % [facility] Monocytes Percent Auto 13.8(H) 2 - 11 % [facility] Eosinophils Percent Auto 5.6(H) 0 - 4 % [facility] Basophils Percent Auto 0.7 0 - 2 % [facility] NRBC Pct Auto 0.0 0.0 - 0.2 /100WBC [facility] Neutrophils Absolute Auto 3.7 2.0 - 8.3 x10*3/uL [facility] Imm Gran Abs Auto 0.02 0.00 - 0.03 X10*3/uL [facility] Lymphocytes Absolute Auto 2.8 1.2 - 4.9 X10*3/uL [facility] Monocytes Absolute Auto 1.1 0.1 - 1.2 X10*3/uL [facility] Eosinophils Absolute Auto 0.5(H) 0.0 - 0.4 X10*3/uL [facility] Basophils Absolute Auto 0.1 0.0 - 0.2 X10*3/uL [facility] NRBC Abs Auto 0.000 0.0 - 0.012 X10*3/uL [facility] 11/27/2024 2:14 PM EDT 11/27/2024 2:16 PM EDT us Generic External Data Provider LAB BLOOD ORDERAB LES Final Result Performing Organization Address [facility]/ZIP Co de Phone Number [facility] [address] [place] [phone] * TSH (11/27/2024 2:14 PM EDT) Only the most recent of2 resultswithin the time period is included. Thyroid Stimulating Hormone 1.20 0.32 - 4.0 uIU/mL [facility] Comment:TSH 3rd Generation ( [facility]) 11/27/2024 2:14 PM EDT 11/27/2024 2:16 PM EDT us Generic External Data Provider LAB BLOOD ORDERAB LES Final Result Performing Organization Address City/[facility]/ZIP Co de Phone Number [facility] [address] [place] [phone] * Magnesium (11/27/2024 2:14 PM EDT) Magnesium 2.3 1.6 - 2.6 mg/dL [facility] 11/27/2024 2:14 PM EDT 11/27/2024 2:16 PM EDT us Generic External Data Provider LAB BLOOD ORDERAB LES Final Result [facility] [address] [place] [phone] [phone] * (ABNORMAL) Comprehensive Metabolic Panel (11/27/2024 2:14 PM EDT) Only the most recent of2 resultswithin the time period is included. Sodium 144 135 - 145 mmol/L [facility] Potassium 4.3 3.3 - 5.1 mmol/L [facility] Comment:Slight Hemolysis.Int erpret result with caution. Chloride 107 96 - 108 mmol/L [facility] Carbon Dioxide 30(H) 22 - 29 mmol/L [facility] Anion Gap 11(L) 12 - 20 [facility] Urea Nitrogen (BUN) 15 9 - 16 mg/dL [facility] Creatinine, Serum 1.02 0.5 - 1.4 mg/dL [facility] Creatinine Clr Calc Pharmacy 37.3 [facility] Comment:Provided height and weight: 149.86 cm,65.3 kg.eGFR (calculated from the MDRD study equation) and eCrCl(calculated from the Cockcroft-Gault equation) are based ondifferent parameters and may not yield comparable results.If eCrCl result is absurd, please check patient'sheight/weight. Estimated Glomerular Filt Rate 52 [facility] Comment:Chronic Kidney Disea se: Estimated GFR < 60 mL/min/[id number] Kidney Disease: Estimated GFR < 15 mL/min/1.73m2 Glucose 138(H) 60 - 115 mg/dL [facility] Calcium 8.8 8.4 - 10.2 mg/dL [facility] Bilirubin, Total 0.4 0.0 - 1.0 mg/dL [facility] Aspartate Amino Transferase 47(H) 5 - 31 U/L [facility] Comment:Slight Hemolysis.Int erpret result with caution. Alanine Aminotransferase 29 0 - 31 U/L [facility] Total Protein 7.3 6.5 - 8.0 g/dL [facility] Albumin Level 4.2 3.5 - 5.0 g/dL [facility] Alkaline Phosphatase 106 39 - 117 U/L [facility] 11/27/2024 2:14 PM EDT 11/27/2024 2:16 PM EDT us Generic External Data Provider LAB BLOOD ORDERAB LES Final Result Performing Organization Address City/State/[facility] Co de Phone Number [facility] [address] [place] [phone] * BD DEXA Axial (11/27/2024 11:15 AM EDT) Anatomical Region Laterality Modality Body Radiographic Azul ging 11/27/2024 11:1 5 AM EDT Narrative 11/27/2024 11:55 AM EDT [facility] [address] [place] [address] Mammography Report Signed Patient: Hue Murphy MR#: [id number] : 1945 Acct:[id number] Age/Sex: 78 / F ADM Date: 11/27/24 Loc: HO.MAMMO Attending Dr: Mima Black MD Ordering Physician: Mima Black MD Results: Date of Service: 11/27/24 Follow Up: Procedure(s): XR DEXA axial skeleton Accession Number(s): [id number] cc: Mima Black MD; Hue Meza MD EXAMINATION: DXA BONE DENSITY AXIAL HISTORY: M81.0 - Age-related osteoporosis without current pathological fracture TECHNIQUE: MIOX Dual energy absorptiometry (DEXA) of the lumbar [...] of the [employer] [employer] [facility] Metabolic Bone Disease, a World Health Organization (WHO) Collaborating Center. Electronically signed by: Theron Nelson MD 11/27/2024 11:53 AM EDT Dictated By: Theron Nelson MD Signed By: <Electronically signed by Theron Nelson MD in OV> 11/27/24 1153 DD/ 1115 TD/TT: 11/27/24 1149 Night Warehouse Manager: Procedure Note Donotuseinterpreter, Image - 11/27/2024 [facility] [address] [place], [place] [address] Mammography Report Signed Patient: Hue Murphy [facility]#: [id number] : 6Acct:[id number] Age/Sex: 78 / FADM Date: 11/27/24 Loc: HO.MAMMO Attending Dr: Mima Black MD Ordering Physician: Mima Black MDResults: Date of Service: 11/27/24Follow Up: Procedure(s): XR DEXA axial skeleton Accession Number(s): [id number] cc: Mima Black MD; Hue Meza MD EXAMINATION: DXA BONE DENSITY AXIAL HISTORY: M81.0 - Age-related osteoporosis without current pathological fracture TECHNIQUE: MIOX Dual energy absorptiometry (DEXA) of the lumbar [...] is a trademark of the [employer] [employer] [facility] Disease, a World Health Organization (WHO) Collaborating Center. Electronically signed by: Theron Nelson MD 11/27/2024 11:53 AM EDT RP Dictated By: Theron Nelson MD Signed By: <Electronically signed by Theron Nelson MD in OV> 11/27/24 1153 DD/ 1115 TD/TT: 11/27/24 1149 Night Warehouse Manager: [facility] External Provider IMG DXA PROCEDURES Final Result * XR Chest 2 Views (10/10/2024 10:20 AM EDT) Anatomical Region Laterality Modality Chest Radiographic Azul ging 10/10/2024 10:2 0 AM EDT Narrative 10/10/2024 11:28 AM EDT [address] [address] XRay Report Signed Patient: Hue Murphy MR#: [id number] : 1945 Acct:[id number] Age/Sex: 78 / F ADM Date: 10/10/24 Loc: HO.HHCX Attending Dr: Hue Lopez MD Ordering Physician: Hue Meza MD Date of Service: 10/10/24 Procedure(s): XR chest 2V Accession Number(s): [id number] cc: Hue Meza MD EXAMINATION: XR CHEST CLINICAL INFORMATION: worsening dry cough and dyspnea COMPARISON: 08/12/2024. 08/16/2023. TECHNIQUE: 2 views of the chest were obtained. FINDINGS: Prior median sternotomy. Probable CABG. The cardiac, hilar, and mediastinal contours are normal. Aortic mural calcification. The lungs are clear bilaterally. Mild pulmonary hyperaeration. There is no pneumothorax or pleural effusion. There is no focal osseous or soft tissue abnormality. There are mild spinal degenerative changes. XR/XR chest 2V IMPRESSION: 1. No active pulmonary disease. No change from 08/12/2024. 2. Sternotomy and probable CABG. Electronically signed by: Nikita Galindo MD 10/10/2024 11:25 AM EDT RP Dictated By: Nikita Galindo MD Signed By: <Electronically signed by Nikita Galindo MD in OV> 10/10/24 1125 DD/ 1020 TD/TT: 10/10/24 1100 Night Warehouse Manager: Procedure Note Donotuseinterpreter, Image - 10/10/[address] [address] XRay Report Signed Patient: Hue Murphy DMR#: [id number] : 6Acct:[id number] Age/Sex: 78 / FADM Date: 10/10/24 [facility]: Hue Lopez MD Ordering Physician: Hue Meza MD Date of Service: 10/10/24 Procedure(s): XR chest 2V Accession Number(s): [id number] cc: Hue Meza MD EXAMINATION: XR CHEST CLINICAL INFORMATION: worsening dry cough and dyspnea COMPARISON: 08/12/2024. 08/16/2023. TECHNIQUE: 2 views of the chest were obtained. FINDINGS: Prior median sternotomy. Probable CABG. The cardiac, hilar, and mediastinal contours are normal. Aortic mural calcification. The lungs are clear bilaterally. Mild pulmonary hyperaeration. There is no pneumothorax or pleural effusion. There is no focal osseous or soft tissue abnormality. There are mild spinal degenerative changes. XR/XR chest 2V IMPRESSION: 1. No active pulmonary disease. No change from 08/12/2024. 2. Sternotomy and probable CABG. Electronically signed by: Nikita Galindo MD 10/10/2024 11:25 AM EDT RP Dictated By: Nikita Galindo MD Signed By: <Electronically signed by Nikita Galindo MD in OV> 10/10/24 1125 DD/ 1020 TD/TT: 10/10/24 1100 Night Warehouse Manager: us Hue Lopez MD IMG XR PROCEDURES Edited Result - Final * Albumin, Random Urine W/Creatinine (09/02/2024 2:28 PM EDT) Creatinine, Urine 38.57 mg/dL [facility] Microalbumin Urine 5.0 mg/L [facility] Microalbum Creatinine Ratio Ur 12.9 <30 ug/mg cr [facility] Comment:Albumin/Creatinine R atio Reference Ranges: Normal: < 30 ug/mg creatinine Microalbuminuria: 30 - 300 ug/mg creatinineClinical Albuminuria: > 300 ug/mg creatinine Urine (Urine, Random) 09/02/2024 2:28 PM EDT 09/02/2024 4:05 PM EDT us Hue Lopez MD LAB URINE ORDERAB LES Final Result Performing Organization Address City/State/[facility] Co de Phone Number [facility] [address] [place] [address] [phone] * XR Lumbar Spine 2-3 Views (09/02/2024 12:40 PM EDT) Anatomical Region Laterality Modality Spine, L-spine Radiographic Azul ging 09/02/2024 12:4 0 PM EDT Narrative 09/02/2024 1:23 PM EDT [address] [address] XRay Report Signed Patient: Hue Murphy MR#: [id number] : 1945 Acct:[id number] Age/Sex: 78 / F ADM Date: 09/02/24 Loc: HO.LINDENAY Attending Dr: Mima Black MD Ordering Physician: Mima Black MD Date of Service: 09/02/24 Procedure(s): XR lumbar spine 2-3V Accession Number(s): [id number] cc: Mima Black MD; Hue Meza MD EXAMINATION: XR LUMBOSACRAL SPINE CLINICAL INFORMATION: M54.50 - Low back pain, unspecified COMPARISON: None available. TECHNIQUE: Three views of the lumbosacral spine. FINDINGS: Mild atherosclerotic ossification is visible in the abdominal aorta and common iliac arteries. Mild degenerative changes are present in the SI joints. Faint curvilinear calcification in the suprafoveal right femoral head articular cartilage is likely chondrocalcinosis. There is moderate wedging of the L2 vertebral body with sclerosis of the inferior endplate. L2-3: There is grade 1 retrolisthesis. There are endplate osteophytes. L3-4: There is subtle retrolisthesis, loss disc height, and anterior osteophytes. L4-5: There is mild disc space narrowing and facet sclerosis. L5-S1: There is facet sclerosis and osteophytes. There are anterior osteophytes. XR/XR lumbar spine 2-3V IMPRESSION: Age-indeterminate L2 vertebral body compression fracture with moderate loss of height, acute versus chronic. Correlate clinically. Multilevel degenerative disc disease and facet arthropathy. Atherosclerotic disease Suspected chondrocalcinosis involving the right femoral head. Electronically signed by: Jon Miner MD 09/02/2024 01:20 PM EDT Dictated By: Jon Miner MD Signed By: <Electronically signed by Jon Miner MD in OV> 09/02/24 1320 DD/ 1240 TD/TT: 09/02/24 1250 Night Warehouse Manager: Procedure Note Donotuseinterpreter, Image - 09/02/[address] [address] XRay Report Signed Patient: Hue Murphy [facility]#: [id number] : 1945cct:[id number] Age/Sex: 78 / FADM Date: 09/02/24 Loc: HO.XRAY Attending Dr: Mima Black MD Ordering Physician: Mima Black MD Date of Service: 09/02/24 Procedure(s): XR lumbar spine 2-3V Accession Number(s): [id number] cc: Mima Black MD; Hue Mzea MD EXAMINATION: XR LUMBOSACRAL SPINE CLINICAL INFORMATION: M54.50 - Low back pain, unspecified COMPARISON: None available. TECHNIQUE: Three views of the lumbosacral spine. FINDINGS: Mild atherosclerotic ossification is visible in the abdominal aorta and common iliac arteries. Mild degenerative changes are present in the SI joints. Faint curvilinear calcification in the suprafoveal right femoral head articular cartilage is likely chondrocalcinosis. There is moderate wedging of the L2 vertebral body with sclerosis of the inferior endplate. L2-3: There is grade 1 retrolisthesis. There are endplate osteophytes. L3-4: There is subtle retrolisthesis, loss disc height, and anterior osteophytes. L4-5: There is mild disc space narrowing and facet sclerosis. L5-S1: There is facet sclerosis and osteophytes. There are anterior osteophytes. XR/XR lumbar spine 2-3V IMPRESSION: Age-indeterminate L2 vertebral body compression fracture with moderate loss of height, acute versus chronic. Correlate clinically. Multilevel degenerative disc disease and facet arthropathy. Atherosclerotic disease Suspected chondrocalcinosis involving the right femoral head. Electronically signed by: Jon Miner MD 09/02/2024 01:20 PM EDT Dictated By: Jon Miner MD Signed By: <Electronically signed by Jon Miner MD in OV> 09/02/24 1320 DD/ 1240 TD/TT: 09/02/24 1250 Night Warehouse Manager: us [facility] External Provider IMG XR PROCEDURES Final Result * Vitamin D, 25-Hydroxy, Total, Immunoassay (08/29/2024 12:30 PM EDT) Vitamin D 25-OH Total 39.1 >30 ng/mL [facility] Comment: Health Based Reference Values*< 20 ng/mL Eyzbodgau83-86 ng/mL Insufficient> 30 ng/mL Sufficient*Tristian PERALTA. N Engl J Med. 2007;357:266-280There is no well-established upper level of normal vitamin Dlevels. Some laboratories use 50 ng/mL as an upper limit ofnormal. However, toxicity is patient-dependent and may occurat any level. Careful correlation with the patient'spresentation is necessary and, if there is concern forvitamin D toxicity, treatment should be consideredirrespective of the serum level.Care must be taken in interpreting Vitamin D results fromdifferent laboratories and methodologies. Published datademonstrated that results from patients undergoinghemodialysis may show a negative bias when tested withvarious automated 25-OH vitamin D assays when compared toLC-MS/MS.When testing samples from patients whose predominant form ofVitamin D is Vitamin D2, such as patients receiving VitaminD2 supplementation, results that are subtherapeutic shouldbe confirmed with another method such as LC-MS/MS. Blood Venous blood specimen / Unknown 08/29/2024 12:30 PM EDT 08/29/2024 1:01 PM EDT Hue Lopez MD LAB BLOOD ORDERAB LES Final Result [facility] [address] [place] [address] [phone] * (ABNORMAL) Vitamin B12 (Cobalamin) and Folate Panel, Serum (08/29/2024 12:30 PM EDT) Vitamin B12 1,017(H) 200 - 900 pg/mL [facility] Comment:NORMAL 200-900 PG/ML INDETERMINATE 160-199 PG/ML DEFICIENT < 160 PG/ML Folate 7.4 > or = 4.0 ng/mL [facility] Comment:Reference Values:> o r = 4.0 ng/mL< 4.0 ng/mL suggests folate deficiency Methotrexate, aminopterin and folinic acid(leucovorin) are chemotherapeutic agents whose molecularstructures are similar to folate; therefore, the Architectfolate assay cannot be used for patients using these drugs. Blood 08/29/2024 12:3 0 PM EDT 08/29/2024 1:01 PM EDT us Hue Lopez MD LAB BLOOD ORDERAB LES Final Result Performing Organization Address [facility] Co de Phone Number [facility] [address] [place] [phone] * Hepatitis C Antibody with Reflex to HCV, RNA, Quantitative, Real-Time PCR (08/29/2024 12:30 PM EDT) Pathologist [facility] Hepatitis C Antibody Nonreactive Nonreactive [facility] Comment:Antibodies to HCV no t detected; does not exclude early acuteHCV infection. Blood Venous blood specimen / Unknown 08/29/2024 12:30 PM EDT 08/29/2024 1:01 PM EDT Hue Lopez MD LAB BLOOD ORDERAB LES Final Result Performing Organization Address [facility] Co de Phone Number [facility] [address] [place] [phone] * Hepatitis B surface antigen, EIA (08/29/2024 12:30 PM EDT) [facility] Hepatitis B Surface Ag Negative Negative [facility] Blood Venous blood specimen / Unknown 08/29/2024 12:30 PM EDT 08/29/2024 1:01 PM EDT Hue Lopez MD LAB BLOOD ORDERAB LES Final Result Performing Organization Address City/[facility] Co de Phone Number [facility] [address] [place] [phone] * (ABNORMAL) CBC (08/29/2024 12:30 PM EDT) Pathologist [facility] White Blood Count 14.5(H) 4.8 - 10.8 X10*3/uL [facility] Red Blood Count 4.16(L) 4.20 - 5.50 X10*6/uL [facility] Hemoglobin 12.4 12.0 - 16.0 g/dl [facility] Hematocrit 38.6 37.0 - 47.0 % [facility] Mean Corpuscular Volume 92.8 80.0 - 98.0 fL [facility] Mean Corpuscular Hemoglobin 29.8 27.0 - 33.0 pg [facility] Mean Corpuscular HGB Conc 32.1 31.0 - 35.0 g/dl [facility] Red Cell Distribution Width 13.1 11.0 - 16.0 % [facility] Platelet Count 279 160 - 400 X10*3/uL [facility] Mean Platelet Volume 11.0 9.4 - 12.3 fL [facility] NRBC Pct Auto 0.0 0.0 - 0.2 /100WBC [facility] NRBC Abs Auto 0.000 0.0 - 0.012 X10*3/uL [facility] Blood Venous blood specimen / Unknown 08/29/2024 12:30 PM EDT 08/29/2024 1:01 PM EDT us Hue Lopez MD LAB BLOOD ORDERAB LES Final Result [facility] [address] [place] [phone] * T4, Free (08/29/2024 12:30 PM EDT) Free T4 (Free Thyroxine) 1.20 0.71 - 1.85 ng/dL [facility] Blood Venous blood specimen / Unknown 08/29/2024 12:30 PM EDT 08/29/2024 1:01 PM EDT us Hue Lopez MD LAB BLOOD ORDERAB LES Final Result Performing Organization Address City/[facility]/ZIP Co de Phone Number [facility] [address] [place] [phone] * B Type Natriuretic Peptide (BNP) (08/29/2024 12:30 PM EDT) B Type Natriuretic Peptide 97 <100 pg/mL [facility] Blood Venous blood specimen / Unknown 08/29/2024 12:30 PM EDT 08/29/2024 1:02 PM EDT us Hue Lopez MD LAB BLOOD ORDERAB LES Final Result Performing Organization Address City/[facility]/ZIP Co de Phone Number [facility] [address] [place] [phone] * (ABNORMAL) Hemoglobin A1c (08/29/2024 12:30 PM EDT) Pathologist [facility] Hemoglobin A1c 9.4(H) <6.0 % [facility] Comment:Hemoglobin A1C Refer ence Range Adults: 4.8 - 6.0 % Non diabetic: < 6.0 % Goal: < 7.0 %Additional Action Suggested: > 8.0 %Note: Hemoglobin A1c results are invalid for patients with abnormal amounts of HbF. Blood transfusions may impact the HbA1c concentration in the patient sample. Estimated Average Glucose 223 mg/dL [facility] Comment:eAG = Estimated ave rage glucose which is %A1C expressed asaverage glucose, using the formula of the F3D-ZmjchqxSmaeimi Glucose study (ADAG), Diabetes Care, Vol.31,#8,Oct. 2007 Blood Venous blood specimen / Unknown 08/29/2024 12:30 PM EDT 08/29/2024 1:01 PM EDT us Hue Lopez MD LAB BLOOD ORDERAB LES Final Result Performing Organization Address City/[facility]/ZIP Co de Phone Number [facility] [address] [place] [phone] * (ABNORMAL) Gamma Glutamyl Transferase (GGT) (08/29/2024 12:30 PM EDT) Gamma Glutamyl Transpeptidase 50(H) 7 - 33 U/L [facility] Blood Venous blood specimen / Unknown 08/29/2024 12:30 PM EDT 08/29/2024 1:01 PM EDT us Hue Lopez MD LAB BLOOD ORDERAB LES Final Result Performing Organization Address [facility]/ZIP Co de Phone Number [facility] [address] [place] [phone] * (ABNORMAL) Lipid Panel, Standard (08/29/2024 12:30 PM EDT) Triglycerides 92 <150 mg/dL [facility] Comment:Desirable Triglyceri de: less than 150 mg/dLBorderline High Triglyceride 150-199 mg/dLHigh Triglyceride: 200-499 mg/dLVery High Triglyceride: greater than or equal to 5OO mg/dL Cholesterol 226(H) <200 mg/dL [facility] Comment:Desirable Cholestero l: less than 200 mg/dLBorderline High Cholesterol: 200-239 mg/dLHigh Cholesterol: greater than 239 mg/dL LDL Cholesterol Calculated 78 <100 mg/dL [facility] Comment:Desirable LDL: less than 100 mg/dLNear Optimal/Above Optimal LDL: 110- 129 mg/dLBorderline High LDL: 130-159 mg/dLHigh LDL: 160-189 mg/dLVery High LDL: greater than or equal to 190 mg/dL HDL Cholesterol 130 >40 mg/dL [facility] Comment:Desirable HDL: great er than 40 mg/dL Note: This HDL assay may give artificially low results in patients with liver disease. Blood Venous blood specimen / Unknown 08/29/2024 12:30 PM EDT 08/29/2024 1:01 PM EDT us Hue Lopez MD LAB BLOOD ORDERAB LES Final Result Performing Organization Address City/[facility]/ZIP Co de Phone Number [facility] [address] [place] [phone] from Last 3 Months Insurance [facility] [employer] (HMO D-SNP) JESS SORENSEN [id number] Care Teams Lead Simulation Modeling Engineer Relationship Specialty Start Date End Date Hue Meza MD [address] [place] [address] PCP - General Internal Medicine 12/22/22 Fely Bowens PharmD [address] [place] [address] Pharmacist Internal Medicine 06/02/24
--- OUTSIDE RECORDS SUMMARY | 2024-11-27 15:05 | XMS_ITS | Encounter Summary ---
Author Organization [employer] Address [address] [facility] [address] [place] [address] Care Team Providers Care Customs Broker Name Role Phone Hue Meza MD Primary Care Pro vider Fely Bowens PharmD Unavailable [phone] Reason for Visit * Reason Comments Med Refill Encounter Details Date Type Department Care Team (Late st Contact Info) Description 06/21/2024 Refill [facility] [address] [place], [place] [phone] Hue Meza MD [address] [place] [address] Neuropathy Social History Tobacco Use Types Packs/Day [...] Description 01/05/2025 10:30 AM EDT Medication Management [facility] MEDICINE [address] [place] [address] Fely Bowens, BessyD [address] [place] [address] documented as of this encounter Goals Goal [...] documented as of this encounter Care Teams Customs Broker Relationship Specialty Start Date End Date Hue Meza MD [address] [place] [address] PCP - General Internal Medicine 12/22/22 Fely Bowens, Jamie [address] [place] [phone] Pharmacist Internal Medicine 06/02/24 documented as of this encounter
== END 2024-11-27 10:57 | disposition home or self-care (01) ==
LOC: HO.MAMMO 10:56
PROVIDERS: PCP Student in an Organized Health Care Education/Training Program; Visit Provider Student in an Organized Health Care Education/Training Program
DX: M81.0 Age-related osteoporosis without current pathological fracture (principal)
CPT/HCPCS: 77080

== ENCOUNTER → 2024-11-27 11:00 | Outpatient (BNV) | payer OTHER, SELFPAY | PROVIDERS: PCP Student in an Organized Health Care Education/Training Program; Visit Provider Radiology Diagnostic Radiology | DX: E28.39 Other primary ovarian failure (principal) | CPT/HCPCS: 77080 ==

== ENCOUNTER → 2024-11-27 12:14 | Outpatient (BNV) | payer OTHER, SELFPAY | PROVIDERS: PCP Student in an Organized Health Care Education/Training Program; Referring Provider Student in an Organized Health Care Education/Training Program; Visit Provider Internal Medicine Cardiovascular Disease | DX: I49.3 Ventricular premature depolarization (principal); R94.31 Abnormal electrocardiogram [ECG] [EKG]; R00.1 Bradycardia, unspecified | CPT/HCPCS: 93010 ==

== ENCOUNTER 2024-11-27 12:48 | Emergency (ER) | payer OTHER, SELFPAY ==
--- OUTSIDE RECORDS SUMMARY | 2007-12-19 08:32 | XMS_ITS | Continuity of Care Document ---
Author Organization [facility] Address [address] [place] [id number] Phone Care Team Providers Care Guard Entrance Registrar Name Role Phone Unavailable Unavailable Unavailable Procedures Procedure Date LOUISE, Cesar Pt, Level III Diagnostic Fiberoptic Laryngoscopy Removal Of Impacted Cerumen Comp Audiometry Threshold Eval 08 Tympanometry Acoustic Reflex Testing Evoked Otoacoustic Emissions Consult, Level III / Office Diagnostic Nasal Endoscopy Advance Directives Directive Yes / No Effective Date File Name No Information Encounters Encounter Description Practice Location Reason(s) For Visit Diagnoses Date Provider Providers Copied on Encounter Cesar GIL Pt, Level III [facility], [address] [place] [address], [id number] , tel: [phone] [facility] Chronic RhinitisReflux EsophagitisSensorn eur Hear Loss NosImpacted CerumenSENSONEUR HEAR LOSS ASYM 8 No Information Referring Provider: Emeli Lucia, [address] [place] [address], [id number]. tel:[phone] Consult, Level III / Office [facility], [address] [place] [address], [id number] , tel: [phone] [facility] Hypertrph Nasal TurbinatRhinitis Due To Pollen 8 No Information Referring Provider: Emeli Lucia [address] [place] [address], [id number]. tel:[phone] Family History Family Member Type Diagnosis Age At Onset No Information Payers Payer name Insurance type Covered republican ID Corinne yousif(s) [employer] [place] CI [id number] Social History Type Description Quantity Date Captured Comments Sex Female Smoking Status No Information Chief Complaint And Reason For Visit No Information Reason For Referral Reason For Referral No Information History Of Present Illness Encounter Date Complaint History Of Prese nt Illness No Information Functional Status Date Functional Assessmen t No Information Instructions Date Instruction Additional Infor mation No Information Assessments Type Assessment Date No Information Patient Care Teams Name Effective Dates (start - stop) Status Members No Information
[2024-11-27 12:51] VITALS: BP 143/46; PULSE 68; RESP 18; TEMP 36.5; O2SAT 99; BMI 29.1
--- NOTE | 2024-11-27 13:21 | ED.GENADULT ---
HPI - General Adult General Chief complaint: Arrhythmia/Palpitations Stated complaint: low hr Time Seen by Provider: 11/27/24 13:21 Source: patient Mode of arrival: ambulatory Limitations: language barrier History of Present Illness ED Provider: Dr. Alexander HPI narrative: This is a 78-year-old female history of CAD status post CABG, Alzheimer, tardive dyskinesia, COPD presented hospital today for evaluation of bradycardia. Patient was at the doctor's office where they noticed that her heart rate did drop into the 30s. Patient does not have any shortness of breath no dizziness no lightheadedness. No chest pain. Daughters at bedside stated that this is the patient's baseline at this time. She does not appear to be in acute distress. Patient denies any recent illness Related Data Home Medications ?Medication ?Instructions ?Recorded ?Confirmed atorvastatin 40 mg tablet 40 mg PO BEDTIME 12/17/19 11/27/24 blood sugar diagnostic #10 12/17/19 11/27/24 carvedilol 3.125 mg tablet 3.125 mg PO BID 12/17/19 11/27/24 fluoxetine 10 mg capsule 10 mg PO DAILY 12/17/19 11/27/24 fluticasone propionate 50 2 spray intranasal DAILY 12/17/19 11/27/24 mcg/actuation nasal spray,suspension furosemide 20 mg tablet 20 mg PO DAILY 12/17/19 11/27/24 gabapentin 300 mg capsule 300 mg PO BEDTIME 12/17/19 11/27/24 lancets 33 gauge #100 12/17/19 11/27/24 pen needle, diabetic 31 gauge x #1,200 12/17/19 11/27/24 5/16 aspirin 81 mg tablet,delayed 81 mg PO BEDTIME 01/07/20 11/27/24 release cyanocobalamin (vitamin B-12) 1,000 mcg PO DAILY 04/21/22 11/27/24 1,000 mcg tablet methimazole 10 mg tablet 10 mg PO BID 11/02/22 11/27/24 calcium 600 mg (as 600 tab PO DAILY 07/31/23 11/27/24 carbonate)-vitamin D3 20 mcg (800 unit) tablet insulin glargine 100 unit/mL (3 100 unit subcut DAILY 07/31/23 11/27/24 mL) subcutaneous pen (Lantus Solostar U-100 Insulin) sitagliptin phosphate 50 mg tablet 50 mg PO DAILY 07/31/23 11/27/24 (Januvia) amlodipine 5 mg tablet 5 mg PO DAILY 03/04/24 11/27/24 alendronate 70 mg tablet 70 mg PO DAILY 05/16/24 11/27/24 blood-glucose sensor (FreeStyle #1 ea 05/16/24 11/27/24 Wilmar 3 Sensor device) famotidine 20 mg tablet 20 mg PO DAILY 05/16/24 11/27/24 melatonin 5 mg tablet 5 mg PO BEDTIME PRN insomnia 05/16/24 11/27/24 cyanocobalamin (vitamin B-12) 1,000 mcg PO DAILY 09/29/24 11/27/24 1,000 mcg capsule Previous Rx's ?Medication ?Instructions ?Recorded pyridoxine (vitamin B6) 50 mg 50 mg PO DAILY 30 days #30 tabs 08/18/22 tablet albuterol sulfate 90 mcg/actuation 2 puff inhalation Q4-6H PRN 08/20/23 aerosol inhaler (Ventolin HFA) shortness of breath or wheezing 30 days #8.5 grams sennosides 8.6 mg tablet (Natural 8.6 mg PO BEDTIME constipation #90 05/16/24 Senna Laxative) tabs tocilizumab-aazg 162 mg/0.9 mL 162 mg (0.9 mL) subcut Q2W #1.8 mL 09/02/24 subcutaneous pen injector (Amanda Autoinjector) Incruse Ellipta 62.5 mcg/actuation 1 inh inhalation DAILY #30 ea 09/17/24 powder for inhalation (umeclidinium) fluticasone 250 mcg-salmeterol 50 1 inh inhalation BID copd 30 days 10/07/24 mcg/dose blistr powdr for #60 ea inhalation (Advair Diskus) pantoprazole 40 mg tablet,delayed 40 mg PO QAM #30 tabs 10/20/24 release donepezil 10 mg tablet 10 mg PO DAILY 90 days #90 tabs 10/23/24 Allergies Allergy/AdvReac Type Severity Reaction Status Date / Time losartan AdvReac Mild Cough Verified 11/27/24 12:53 Review of Systems Review of Systems: Pertinent review of systems as mentioned in HPI. All other system otherwise negative. PMFSH Past Medical History PMFSH Narrative: Medical history as mentioned in HPI Medical History (Updated 11/27/24 @ 17:36 by Bela Alexander DO) Insomnia Gout Osteoarthritis of acromioclavicular joints, bilateral Latent tuberculosis Restrictive lung disease CAD (coronary artery disease) Asthma Allergic rhinitis COPD exacerbation COPD (chronic obstructive pulmonary disease) Cough Hypertension Diabetes Surgical History History of hysterectomy Hx of CABG Family History Family History Mother Acute arthritis Social History Social History Household Members: Family Housing: Apartment Do you presently have visiting nurse or other home services: Yes ([facility] and [employer]) Alcohol intake: never Patient Tobacco Use Status: Never used Tobacco e-Cigarette/Vaping Use: Never Used Second Hand Smoke Exposure: No Advance Directives: No Advance Directives Information Provided: Yes service: No Current occupational status: unemployed Physical Exam ED Exam Exam: General: Pleasant, no distress, interacting appropriately Head: Normacephalic, atraumatic ENT: oral mucosa dry, neck supple, no tracheal deviation Cardiovascular: Bradycardic rate, regular rhythm, no murmurs, rubbing, gallops Respiratory: CTAB, no wheeze, rales, rhonchi Gastrointestinal: Soft, non distended, non tender, non guarding Extremities: No limb pain or swelling, no calf tenderness Neurological: Awake and alert, no facial droop noted Skin: Warm and dry Psychiatric: Appropriate mood and thoughts Vital Signs: Vital Signs - 24 hr 11/27/24 12:51 11/27/24 13:47 11/27/24 13:47 Temperature 97.7 F Pulse Rate 68 63 72 Respiratory Rate 18 Blood Pressure 143/46 H 127/68 135/79 Pulse Oximetry 99 Oxygen Delivery Method Room Air 11/27/24 13:49 Temperature Pulse Rate 70 Respiratory Rate Blood Pressure 128/69 Pulse Oximetry Oxygen Delivery Method BMI result Body Mass Index 29.1 Medications Administered Discontinued Medications Generic Name Dose Route Start Last Admin Trade Name Freq PRN Reason Stop Dose Admin Magnesium Sulfate 2 gm in 50 mls @ 50 mls/hr 11/27/24 13:59 11/27/24 15:52 Magnesium Sulfate/H2o IV 11/27/24 14:58 Infused ONCE ONE Infusion Sodium Chloride 500 mls @ 500 mls/hr 11/27/24 14:00 11/27/24 15:52 Ns IV 11/27/24 14:59 Infused .Q1H MISTI Infusion Medical Decision Making Medical Decision Making [facility] Narrative: 78-year-old female history of CAD status post CABG, COPD, tardive dyskinesia presented hospital today for evaluation of bradycardia heart rates in the 30s. At the time of my examination patient's heart rates remains in the 50s. Patient's blood pressure is stable. Patient appears to be well does not appear to be in acute distress. We will pursue a cardiac workup for the patient's showing EKG, CBC chemistry troponin. Magnesium level will be added and TSH level will be added as well. Patient is asymptomatic. Blood pressure stable. This encounter was performed with a stroboscope operator. Patient's initial EKG did show prolonged QT. Does look a bit prolonged on my examination of the EKG. We will plan to give patient 2 g of IV magnesium. 500 cc IV fluid will be given to the patient as well. No sign of STEMI on patient's EKG, patient's CBC is unremarkable, patient chemistries unremarkable, magnesium level is normal. Troponins negative here. Patient's heart rate did not drop into the 30s while on a monitor here. TSH level is normal. We will plan to discharge patient at this time. Encouraged family to see where loop recorder or a Holter monitor may be appropriate for patient for further monitoring of her heart rate. Patient is asymptomatic from this is bradycardia. Differential Diagnosis Differential Diagnoses: The differential diagnosis associated with the presentation includes Electrolyte abnormality, hypothyroidism, bradycardia, heart block Lab Data [facility] Lab Attestation statement: I reviewed the patient's lab results. 11/27/24 14:14 11/27/24 14:14 Labs: Lab Results 11/27/24 Range/Units 14:14 WBC 8.2 (4.8-10.8) X10*3/uL RBC 4.26 (4.20-5.50) X10*6/uL Hgb 12.9 (12.0-16.0) g/dl Hct 39.5 (37.0-47.0) % MCV 92.7 (80.0-98.0) fL MCH 30.3 (27.0-33.0) pg MCHC 32.7 (31.0-35.0) g/dl RDW 13.5 (11.0-16.0) % Plt Count 238 (160-400) X10*3/uL MPV 11.0 (9.4-12.3) fL Immature Gran % (Auto) 0.2 (0.0-0.4) % Neut % (Auto) 45.4 (45-73) % Lymph % (Auto) 34.3 (20-40) % Hardee % (Auto) 13.8 H (2-11) % Eos % (Auto) 5.6 H (0-4) % Baso % (Auto) 0.7 (0-2) % Lymph # (Auto) 2.8 (1.2-4.9) X10*3/uL Hardee # (Auto) 1.1 (0.1-1.2) X10*3/uL Eos # (Auto) 0.5 H (0.0-0.4) X10*3/uL Baso # (Auto) 0.1 (0.0-0.2) X10*3/uL Abs Immat Gran (auto) 0.02 (0.00-0.03) X10*3/uL Absolute Neuts (auto) 3.7 (2.0-8.3) x10*3/uL Absolute Nucleated RBC 0.000 (0.0-0.012) X10*3/uL Nucleated RBC % (auto) 0.0 (0.0-0.2) /100WBC Sodium 144 (135-145) mmol/L Potassium 4.3 (3.3-5.1) mmol/L Chloride 107 (96-108) mmol/L Carbon Dioxide 30 H (22-29) mmol/L Anion Gap 11 L (12-20) BUN 15 (9-16) mg/dL Creatinine 1.02 (0.5-1.4) mg/dL Estim Creat Clear Calc 37.3 Estimated GFR 52 Random Glucose 138 H (60-115) mg/dL Calcium 8.8 (8.4-10.2) mg/dL Magnesium 2.3 (1.6-2.6) mg/dL Total Bilirubin 0.4 (0.0-1.0) mg/dL AST 47 H (5-31) U/L ALT 29 (0-31) U/L Alkaline Phosphatase 106 (39-117) U/L Troponin I High Sens 7.5 (<3.5-17.0) ng/L Total Protein 7.3 (6.5-8.0) g/dL Albumin 4.2 (3.5-5.0) g/dL TSH 1.20 (0.32-4.0) uIU/mL Independent Interpretation I performed an independent interpretation of an: EKG and Rhythm Strip Discharge Plan Discharge Clinical Impression: Bradycardia Patient Disposition: Home, Self-Care Instructions: Bradycardia (ED) Additional Instructions: Follow up with primary care doctor for a possible holter monitor or a loop recorder. Prescriptions: No Action Incruse Ellipta 62.5 mcg/actuation blister with device 1 inh inhalation DAILY Qty: 30 5RF pantoprazole 40 mg tablet,delayed release (DR/EC) 40 mg PO QAM Qty: 30 2RF (DME) lancets 33 gauge misc See Rx Instructions Not Applicable TID Qty: 100 Rx Instructions: As directed fluticasone propionate 50 mcg/actuation spray,suspension 2 spray intranasal DAILY furosemide 20 mg tablet 20 mg PO DAILY gabapentin 300 mg capsule 300 mg PO BEDTIME carvedilol 3.125 mg tablet 3.125 mg PO BID (DME) blood sugar diagnostic Strip See Rx Instructions Not Applicable TID Qty: 10 Rx Instructions: As directed atorvastatin 40 mg tablet 40 mg PO BEDTIME (DME) pen needle, diabetic 31 gauge x 5/16 needle See Rx Instructions .ROUTE .MEDSUPPLY Qty: 1200 Rx Instructions: As directed fluoxetine 10 mg capsule 10 mg PO DAILY aspirin 81 mg tablet,delayed release (DR/EC) 81 mg PO BEDTIME cyanocobalamin (vitamin B-12) 1,000 mcg tablet 1,000 mcg PO DAILY pyridoxine (vitamin B6) 50 mg tablet 50 mg PO DAILY 30 Days Qty: 30 7RF methimazole 10 mg tablet 10 mg PO BID Januvia 50 mg tablet 50 mg PO DAILY insulin glargine [Lantus Solostar U-100 Insulin] 100 unit/mL (3 mL) insulin pen 100 unit subcut DAILY calcium carbonate-vitamin D3 600 mg-20 mcg (800 unit) tablet 600 tab PO DAILY albuterol sulfate [Ventolin HFA] 90 mcg/actuation HFA aerosol inhaler 2 puff inhalation Q4-6H PRN (Reason: shortness of breath or wheezing) 30 Days Qty: 8.5 4RF amlodipine 5 mg tablet 5 mg PO DAILY fluticasone propion-salmeterol [Advair Diskus] 250-50 mcg/dose blister with device 1 inh inhalation BID 30 Days Qty: 60 5RF Tyenne Autoinjector 162 mg/0.9 mL pen injector 162 mg subcut Q2W Qty: 1.8 5RF cyanocobalamin (vitamin B-12) 1,000 mcg capsule 1,000 mcg PO DAILY donepezil 10 mg tablet 10 mg PO DAILY 90 Days Qty: 90 1RF (DME) Gadget[employer] Wilmar 3 Sensor Device See Rx Instructions .ROUTE .MEDSUPPLY Qty: 1 Rx Instructions: As directed famotidine 20 mg tablet 20 mg PO DAILY alendronate 70 mg tablet 70 mg PO DAILY melatonin 5 mg tablet 5 mg PO BEDTIME PRN (Reason: insomnia) sennosides [Natural Senna Laxative] 8.6 mg tablet 8.6 mg PO BEDTIME Qty: 90 3RF Referrals: [facility] [Provider Group] Clinical Impression: Bradycardia Print Language: Welsh
[2024-11-27 13:47] VITALS: BP 127/68; BP 135/79; PULSE 63; PULSE 72
[2024-11-27 13:49] VITALS: BP 128/69; PULSE 70
[2024-11-27 14:18] LABS: MANUAL DIFF FLAG NO
[2024-11-27 14:19] LABS: Hematocrit 39.5 % (37.0-47.0); Hemoglobin 12.9 g/dl (12.0-16.0); Imm Gran Abs Auto 0.02 X10*3/uL (0.00-0.03); Imm Gran Pct Auto 0.2 % (0.0-0.4); Lymphocytes Absolute Auto 2.8 X10*3/uL (1.2-4.9); Mean Corpuscular HGB Conc 32.7 g/dl (31.0-35.0); Mean Corpuscular Hemoglobin 30.3 pg (27.0-33.0); Mean Corpuscular Volume 92.7 fL (80.0-98.0); NRBC Abs Auto 0.000 X10*3/uL (0.0-0.012); NRBC Pct Auto 0.0 /100WBC (0.0-0.2); Platelet Count 238 X10*3/uL (160-400); Red Blood Count 4.26 X10*6/uL (4.20-5.50); White Blood Count 8.2 X10*3/uL (4.8-10.8)
[2024-11-27 14:41] LABS: Alanine Aminotransferase 29 U/L (0-31); Albumin Level 4.2 g/dL (3.5-5.0); Alkaline Phosphatase 106 U/L (39-117); Anion Gap 11 (12-20); Aspartate Amino Transferase 47 U/L (5-31); Blood Urea Nitrogen 15 mg/dL (9-16); Calcium 8.8 mg/dL (8.4-10.2); Carbon Dioxide 30 mmol/L (22-29); Chloride 107 mmol/L (96-108); Creatinine Clr Calc Pharmacy 37.3; Estimated Glomerular Filt Rate 52; Magnesium 2.3 mg/dL (1.6-2.6); Potassium 4.3 mmol/L (3.3-5.1); Sodium 144 mmol/L (135-145); Total Protein 7.3 g/dL (6.5-8.0); Troponin-I High Sensitivity 7.5 ng/L (<3.5-17.0)
[2024-11-27 14:56] LABS: Thyroid Stimulating Hormone 1.20 uIU/mL (0.32-4.0)
[2024-11-27] MEDS: Magnesium Sulfate/H2O 2 GM/50 ML PIGGYBACK IV (14:58)
[2024-11-27 17:44] VITALS: BP 133/61; PULSE 58; RESP 18; TEMP 36.8; O2SAT 99
[2024-11-27 18:07] VITALS: BP 133/61; PULSE 58; RESP 18; TEMP 36.8; O2SAT 99
== END 2024-11-27 18:08 | disposition home or self-care (01) ==
PROVIDERS: Emergency Provider Student in an Organized Health Care Education/Training Program; PCP Student in an Organized Health Care Education/Training Program
DX: R00.1 Bradycardia, unspecified (principal); I10 Essential (primary) hypertension; J44.9 Chronic obstructive pulmonary disease, unspecified; E11.9 Type 2 diabetes mellitus without complications; G30.9 Alzheimer's disease, unspecified; F02.80 Dementia in other diseases classified elsewhere, unspecified severity, without behavioral disturbance, psychotic disturbance, mood disturbance, and anxiety; Z79.899 Other long term (current) drug therapy
CPT/HCPCS: 36415; 80053; 83735; 84443; 84484; 85025; 96361; 96374; 99284; J3475

== ENCOUNTER 2024-12-25 09:45 | Outpatient (AMB) | payer OTHER, SELFPAY ==
--- NOTE | 2024-12-25 09:59 | A.OFFVIS_ITS ---
Vital Signs 12/25/24 10:07 Height 4 ft 11 in Weight 142 lb 6.698 oz BMI 28.8 BP 118/64 Blood Pressure Location Lt brachial Position Sitting Pulse 78 Pulse Oximetry (%) 98 Oxygen Delivery Method Room Air Intake Visit Reasons: RA Intake Note: Patient presents for RA follow up. Grooming Salon Manager Required: Yes Grooming Salon Manager Language: Bail Attacher Services: Grooming Salon Manager Present Grooming Salon Manager Name: Larisa [id number] Information Interpreted: non-clinical & clinical Allergies losartan Adverse Reaction (Mild, Verified 12/25/24 10:06) Cough Medication List - Last Reconciled 12/25/24 by Mima Black MD albuterol sulfate 90 mcg/actuation (Ventolin HFA) 2 puffs inhalation Q4-6H PRN 30 days alendronate 70 mg PO DAILY amlodipine 5 mg PO DAILY aspirin 81 mg PO BEDTIME atorvastatin 40 mg PO BEDTIME blood sugar diagnostic As directed blood-glucose sensor (beneSolStyle Wilmar 3 Sensor device) As directed calcium carbonate-vitamin D3 600 mg-20 mcg (800 unit) 600 tabs PO DAILY carvedilol 3.125 mg PO BID cyanocobalamin (vitamin B-12) 1,000 mcg PO DAILY cyanocobalamin (vitamin B-12) 1,000 mcg PO DAILY donepezil 10 mg PO DAILY 90 days famotidine 20 mg PO DAILY fluoxetine 10 mg PO DAILY fluticasone propion-salmeterol 250-50 mcg/dose (Advair Diskus) 1 inh inhalation BID 30 days fluticasone propionate 50 mcg/actuation 2 sprays intranasal DAILY furosemide 20 mg PO DAILY gabapentin 300 mg PO BEDTIME Incruse Ellipta 62.5 mcg/actuation (umeclidinium) 1 inh inhalation DAILY NS insulin glargine (Lantus Solostar U-100 Insulin) 100 units subcut DAILY lancets As directed melatonin 5 mg PO BEDTIME PRN methimazole 10 mg PO BID pantoprazole 40 mg PO QAM pen needle, diabetic As directed pyridoxine (vitamin B6) 50 mg PO DAILY 30 days sennosides (Natural Senna Laxative) 8.6 mg PO BEDTIME sitagliptin phosphate (Januvia) 50 mg PO DAILY tocilizumab-aazg (Tyenne Autoinjector) 162 mg (0.9 mL) subcut Q2W HPI Comments Details: Patient is a 79-year-old female with COPD, latent Tb, hypertension c/b stroke with residual aphasia, hyperlipidemia, diabetes, osteopenia with a high FRAX score, and rheumatoid arthritis here today for follow up Interval History: Patient last seen 09/02/24 with me. - On Tyenne every 2 weeks 162mg SC - Patient did not start the Tyenne, stating she does not want any further medications - Joints improved on prednisone taper, currently on prednisone 5mg - Complaining of low back pain - discussed with patient and daughter that she needs to be on a DMARD to control her RA. They were agreeable to restart Tyenne - CT L Spine ordered Today - Tyenne 162mg SC every 2 weeks - CT not done, did not get a call - Still complaining of back pain, currently 11/26 in pain Rheumatologic History: ++RF+++CCP dx many years ago. Unknown previous DMARDs SSZ started 08/08 stopped due to transaminitis HCQ 07/2023 DC 10/2023 ineffective Enbrel 01/2024-04/2024 ineffective Humira 04/2024 - 07/2024 Actemra 07/2024 (insurance denied) Tyenne 07/2024 - Current Rheumatology Medication(s): Tyenne 162mg SC every 2 weeks Alendronate 70mg weekly PO [facility] Medical History (Updated 12/25/24 @ 10:17 by Mima Black MD) Osteoporosis Insomnia Gout Osteoarthritis of acromioclavicular joints, bilateral Latent tuberculosis Restrictive lung disease CAD (coronary artery disease) Asthma Allergic rhinitis COPD exacerbation COPD (chronic obstructive pulmonary disease) Cough Hypertension Diabetes Surgical History History of hysterectomy Hx of CABG Family History Mother Acute arthritis Social History Household Members: Family Housing: Apartment Do you presently have visiting nurse or other home services: Yes ([facility] and OIL DELIVERER) Alcohol intake: never Patient Tobacco Use Status: Never used Tobacco e-Cigarette/Vaping Use: Never Used Second Hand Smoke Exposure: No service: No Current occupational status: unemployed Review of Systems Const Details: Review of Systems Constitutional: Denies fever, chills, weight loss ENT: Denies vision changes, eye pain or eye redness, dental caries, dry mouth GI: Denies nausea, vomiting, diarrhea, abdominal pain, change in BM Pulm: Denies SOB, JOYA, hemoptysis, wheezing Cards: Denies chest pain, palpitations Skin: Denies Raynaud's, rash, nail changes, photosensitivity, RAILROAD CRANE OPERATOR: Denies headaches, weakness, paresthesias, recurrent falls MSK: as per HPI All other systems reviewed and are unremarkable except noted above Physical Exam Exam Exam: Vital signs reviewed Physical Examination CONSTITUITIONAL Patient alert and cooperative. Well appearing and in no apparent painful distress MSK Hands * Right Hand: Able to make a fist. No swelling. TTP of the 2nd and 3rd MCPs * Left Hand: Able to make a fist. No swelling. TTP of the 5th PIP and DIP, 4th CMP * Herbedens nodes noted bilaterally Wrists * Right Wrist: Full ROM to flexion and extension. No swelling or TTP * Left Wrist: Full ROM to flexion and extension. No swelling or TTP Elbows * Right Elbow: Full ROM. No swelling or TTP. No TTP of the medial epicondyle. No TTP of the lateral epicondyle * Left Elbow: Full ROM. No swelling or TTP. No TTP of the medial epicondyle. No TTP of the lateral epicondyle Shoulders * Right shoulder: Decreased ROM. No swelling noted. TTP of the AC joint. TTP of the subacromial bursa. No TTP of the posterior shoulder * Left shoulder: Decreased ROM. No swelling noted. TTP of the AC joint. TTP of the subacromial bursa. No TTP of the posterior shoulder Knees * Right knee: Full ROM. No swelling noted. No TTP of the knee joint line. No TTP of pes anserine bursa * Left knee: Full ROM. No swelling noted. TTP of the knee joint line. No TTP of pes anserine bursa. * Crepitations felt bilaterally Ankles * Right ankle: Good ankle dorsiflexion and plantar flexion. No swelling. No TTP of the ankle joint * Left ankle: Good ankle dorsiflexion and plantar flexion. No swelling. No TTP of the ankle joint Feet * Right foot: Negative squeeze test * Left foot: Negative squeeze test Tender points? * No tenderness to palpation of the bilateral trapezius, supraspinatus, anterior costochondral junctions, bilateral suboccipital muscle insertions SKIN No rashes Vital Signs: Last Vital Signs Pulse 78 12/25/24 10:07 BP 118/64 12/25/24 10:07 Pulse Ox 98 12/25/24 10:07 Oxygen Delivery Method Room Air 12/25/24 10:07 BMI result Body Mass Index 28.8 Results Reviewed Results Reviewed: Laboratory Tests 07/17/24 11/27/24 12:40 14:14 WBC 8.2 RBC 4.26 Hgb 12.9 Hct 39.5 Plt Count 238 ESR 44 H Sodium 144 Potassium 4.3 Chloride 107 Carbon Dioxide 30 H BUN 15 Creatinine 1.02 AST 47 H ALT 29 Rheumatology labs 12/22/21 04/21/22 07/31/23 11:45 13:11 11:37 Rheumatoid Factor 392.2 H Cycl Citrul Peptide IgG >250 H ENMA Screen POSITIVE A ENMA Titer 1:320 H SS-A/Ro Antibody <1.0 NEG SS-B/La Antibody <1.0 NEG Sm (Denise) Antibody <1.0 NEG SM/TEMPERATURE LOGGING OPERATOR IgG Antibody <1.0 NEG Double Strand DNA Ab 1 Beta-2-GPI IgG Ab <2.0 Beta-2-GPI IgA Ab <2.0 Beta-2-GPI IgM Ab <2.0 Tiss Transglutamin IgG <1.0 Tiss Transglutamin IgA <1.0 Anti-Cardiolipin IgG Ab <2.0 Anti-Cardiolipin IgM Ab <2.0 Complement C3 123 Complement C4 17 Infectious serologies 07/17/24 12:40 Hepatitis A IgM Ab Nonreactive Hep Bs Antigen Negative Hep Bs Antibody NONREACTIVE Hep B Core Total Ab Nonreactive Hepatitis C Ab (EIA) Nonreactive XR L spine 08/2024 FINDINGS: Mild atherosclerotic ossification is visible in the abdominal aorta and common iliac arteries. Mild degenerative changes are present in the SI joints. Faint curvilinear calcification in the suprafoveal right femoral head articular cartilage is likely chondrocalcinosis. There is moderate wedging of the L2 vertebral body with sclerosis of the inferior endplate. L2-3: There is grade 1 retrolisthesis. There are endplate osteophytes. L3-4: There is subtle retrolisthesis, loss disc height, and anterior osteophytes. L4-5: There is mild disc space narrowing and facet sclerosis. L5-S1: There is facet sclerosis and osteophytes. There are anterior osteophytes. IMPRESSION: Age-indeterminate L2 vertebral body compression fracture with moderate loss of height, acute versus chronic. Correlate clinically. Multilevel degenerative disc disease and facet arthropathy. Atherosclerotic disease Suspected chondrocalcinosis involving the right femoral head. DEXA 11/2024 FINDINGS: The bone mineral density of the lumbar spine is 0.998 g/cm2, corresponding to a T-score of -1.4, and a Z-score of 0.5. This is indicative of osteopenia. This represents a BMD change of 10.8% compared to the prior exam. This is statistically significant. The bone mineral density of the left total hip is 0.713 g/cm2, corresponding to a T-score of -2.3, and a Z-score of -0.3. This is indicative of osteopenia. This represents a BMD change of -4.4% compared to the prior exam. This is not statistically significant. The bone mineral density of the left femoral neck is 0.674 g/cm2, corresponding to a T-score of -2.6, and a Z-score of -0.4. This is indicative of osteoporosis. This represents a BMD change of -9.3% compared to the prior exam. Assessment & Plan Assessment & Plan (1) Rheumatoid arthritis: Comment: ++RF+++CCP dx many years ago. Unknown previous DMARDs SSZ started 08/08 stopped due to transaminitis HCQ 07/2023 DC 10/2023 ineffective Enbrel 01/2024-04/2024 ineffective Humira 04/2024 - 07/2024 Actemra 07/2024 (insurance denied) Tyenne 07/2024 - Code(s): M06.9 - Rheumatoid arthritis, unspecified Category: Medical Qualifiers: Rheumatoid arthritis location: multiple sites Rheumatoid factor presence: with rheumatoid factor Qualified Code(s): M05.79 - Rheumatoid arthritis with rheumatoid factor of multiple sites without organ or systems involvement Plan: #Seropositive RA Patient is a 79-year-old female with seropositive rheumatoid arthritis. Currently on Tyenne every 2 weeks Last dose 1 week ago Still with Tender joints today Since she is off her prednisone it seems that the Tyenne monotherapy is not sufficient to suppress her immune system Will add Methotrexate to see if there is additional benefit Plan - Tyenne 162mg SC every 2 weeks - Start Methotrexate 15mg every week and folic acid 1mg daily - RTC 4 months - Labs before visit: CBC, CMP, ESR, CRP (2) Back pain: Code(s): M54.9 - Dorsalgia, unspecified Qualifiers: Back pain laterality: unspecified Back pain location: low back pain Chronicity: chronic Sciatica presence: without sciatica Qualified Code(s): M54.50 - Low back pain, unspecified; G89.29 - Other chronic pain Plan: #Low back pain Patient still complaining of low back pain. 11/26 XR L spine ordered and resulted showing compression fracture of undetermined age Ensure CT Plan - CT L spine - Send to pain management (3) Osteoporosis: Comment: DEXA 04/2022: AP spine -2.0, Left femur neck -2.1, Left femur total -2.1. FRAX 12.8/3.9 DEXA 11/2024: AP Spine -1.4, Left femur neck -2.3, Left femur total -2.6. Code(s): M81.0 - Age-related osteoporosis without current pathological fracture Category: Medical Qualifiers: Osteoporosis type: age-related Presence of current pathological fracture: without current pathological fracture Qualified Code(s): M81.0 - Age- related osteoporosis without current pathological fracture Plan: #Osteoporosis Patient most recent DEXA 11/2024 showing worsening bone density of her left femur and now new osteoporosis of her left femur total. On alendronate but despite this has had worsening of her bone density. Will change to Prolia Plan - Prolia 60mg SC every 6 months - Stop alendronate (4) Restrictive lung disease: Comment: This patient has had previous chest surgery, has a long mid sternal scar. Pulmonary function test has shown moderately severe restrictive pulmonary disorder. This is mainly the reason for her shortness of breath on exertion. Code(s): J98.4 - Other disorders of lung Category: Medical Plan: #Restrictive lung disease Patient with severe restrictive lung disease. CT scan with no evidence of ILD. Unlikely to be related to her rheumatoid arthritis (5) Encounter for monitoring tocilizumab therapy: Code(s): Z51.81 - Encounter for therapeutic drug level monitoring; Z79.620 - shelter (current) use of immunosuppressive biologic Plan: #Long-term Use of Tocilizumab Discussed the risks and benefits of tocilizumab with the management of this patient's rheumatic condition. ? Benefits include decreased pain, improved mortality, improved quality of life Risks include LFT abnormalities, elevated triglycerides, GI perforations Contraindicated in a patient with history of diverticulitis Monitoring: ?CBC, CMP, triglycerides (6) Encounter for ongoing osteoporosis therapy, bisphosphonates: Code(s): M81.0 - Age-related osteoporosis without current pathological fracture; Z79.83 - terminal supervisor (current) use of bisphosphonates Plan: #Long-term Use of Bisphosphonates Risks and benefits of bisphosphonates in the management of osteoporosis Benefits include improved bone density, decreased fracture risk Risks include atypical femoral fractures, GI upset, esophageal strictures Contraindicated in patients with a creatinine clearance < 30 to 35 ml/min Keep vitamin-D at least 35 ng/mL (7) Encounter for methotrexate monitoring: Code(s): Z51.81 - Encounter for therapeutic drug level monitoring; Z79.631 - terminal supervisor (current) use of antimetabolite agent Plan: #Long-term Current Use of Methotrexate Discussed with patient the benefits and risks of methotrexate for managing their rheumatic condition Benefits include reduced pain, reduced mortality, maintenance of remission and reduction of flares Risks include oral ulcers, photosensitivity, hepatotoxicity, hematologic toxicity, pneumonitis, flu-like symptoms (especially day after administration), nodulosis, lymphomas ? Limit alcohol and avoid Bactrim ? Monitoring: CBC, BMP, LFTs every 3-4 months and hepatitis serologies as needed ? Methotrexate is teratogenic. If planning need to discontinue 3 months prior to conception Plan I spent 40 minutes reviewing the record and labs, taking a history using mill oiler, examining the patient, discussing the treatment plan using mill oiler and documenting in the medical record Orders: Orders Complete Blood Count Auto Diff 4 Months Z79.899 - Other local company intermodal truck driver (current) drug therapy Comprehensive Met. Panel 4 Months Z79.899 - Other fdc (current) drug therapy Lipid Panel 4 Months Z79.899 - Other fdc (current) drug therapy C Reactive Protein 4 Months Z79.899 - Other local company intermodal truck driver (current) drug therapy Erythrocyte Sedimentation Rate 4 Months Z79.899 - Other local company intermodal truck driver (current) drug therapy Referrals Pain Management Referral M54.50 - Low back pain, unspecified Medications: New methotrexate sodium 15 mg (6 x 2.5 mg) PO QWEEK 78 tabs 1RF 90 days M05.79 - Rheumatoid arthritis with rheumatoid factor of multiple sites without organ or systems involvement folic acid 1 mg PO DAILY 90 tabs 1RF M05.79 - Rheumatoid arthritis with rheumatoid factor of multiple sites without organ or systems involvement Refilled tocilizumab-aazg (Tyenne Autoinjector) 162 mg (0.9 mL) subcut Q2W 1.8 mL 5RF M05.79 - Rheumatoid arthritis with rheumatoid factor of multiple sites without organ or systems involvement Coding Level of Care Code Est Pt Level 5 (34527) Complex EM visit Add On G2211 Diagnoses Rheumatoid arthritis involving multiple sites with positive rheumatoid factor M05.79 Rheumatoid arthritis location: multiple sites Rheumatoid factor presence: with rheumatoid factor Chronic low back pain without sciatica, unspecified back pain laterality M54.50; G89.29 Back pain laterality: unspecified Back pain location: low back pain Chronicity: chronic Sciatica presence: without sciatica Age-related osteoporosis without current pathological fracture M81.0 Osteoporosis type: age-related Presence of current pathological fracture: without current pathological fracture Restrictive lung disease J98.4 Encounter for monitoring tocilizumab therapy Z51.81; Z79.620 Encounter for ongoing osteoporosis therapy, bisphosphonates M81.0; Z79.83 Encounter for methotrexate monitoring Z51.81; Z79.631
[2024-12-25 10:07] VITALS: BP 118/64; PULSE 78; O2SAT 98; BMI 28.8
== END 2024-12-25 10:34 | disposition home or self-care (01) ==
LOC: HO.RHES 09:46
PROVIDERS: PCP Student in an Organized Health Care Education/Training Program; Visit Provider Student in an Organized Health Care Education/Training Program
DX: M05.79 Rheumatoid arthritis with rheumatoid factor of multiple sites without organ or systems involvement (principal); M54.50 Low back pain, unspecified; G89.29 Other chronic pain; M81.0 Age-related osteoporosis without current pathological fracture; J98.4 Other disorders of lung; Z51.81 Encounter for therapeutic drug level monitoring; Z79.620 Long term (current) use of immunosuppressive biologic; Z79.83 Long term (current) use of bisphosphonates; Z79.631 Long term (current) use of antimetabolite agent
CPT/HCPCS: 99215; G2211

== ENCOUNTER → 2024-12-25 09:45 | Outpatient (BNVA) | payer OTHER, SELFPAY | PROVIDERS: PCP Student in an Organized Health Care Education/Training Program; Visit Provider Student in an Organized Health Care Education/Training Program | DX: M05.79 Rheumatoid arthritis with rheumatoid factor of multiple sites without organ or systems involvement (principal); M54.50 Low back pain, unspecified; M81.0 Age-related osteoporosis without current pathological fracture; J98.4 Other disorders of lung; G89.29 Other chronic pain; Z51.81 Encounter for therapeutic drug level monitoring; Z79.620 Long term (current) use of immunosuppressive biologic; Z79.83 Long term (current) use of bisphosphonates; Z79.631 Long term (current) use of antimetabolite agent | CPT/HCPCS: 99212 ==

== ENCOUNTER 2025-01-12 11:03 | Outpatient (REF) | payer OTHER, SELFPAY ==
--- OUTSIDE RECORDS SUMMARY | 2025-01-12 13:57 | XMS_ITS | Encounter Summary ---
Author Organization [employer] Address [address] [facility] 7[address] [place] [address] Care Team Providers Care Salvage Determiner Name Role Phone Cecy Gonzalez [facility] Primary Care Provider Hue Fish MD Primary Care Pro vider Fely Bowens PharmD Unavailable [phone] Reason for Visit * Reason Onset Date Comments Hospital Follow-up 10/26/2022 Encounter Details Date Type Department Care Team (Late st Contact Info) Description 10/26/2022 Telephone [facility] MEDICINE [address] [place] [address] Cecy Gonzalez FNP Hospital Follow-up Social History [...] 12:16 PM EDT Tc from Hue at [facility] Tc from pt requesting a [facility] appt. Pt was admitted at [facility] on 10/22/22 and discharged on 10/25/22. Pt wasdiagnosed with small fracture on the spine Please call pts granddaughter Irma at [phone] documented in this encounter Plan of Treatment Upcoming Encounters Date Type Department Care Team (Late st Contact Info) Description 02/20/2025 9:45 AM EST Office Visit [address] [address] Hue Meza MD [address] [place] [address] [phone] 04/20/2025 11:30 AM EST Medication Management [address] [phone] Taylor Chan PharmD [address] [place] [address] [phone] documented as of this encounter Visit Diagnoses Not on filedocumented in this encounter Care Teams Salvage Determiner Relationship Specialty Start Date End Date Cecy Gonzalez FNP PCP - General Family Medicine 08/22/22 12/21/22 Hue Meza MD [address] [place] [address] [phone] PCP - General Internal Medicine 12/22/22 Fely Bowens PharmD [address] [place] [address] [phone] Pharmacist Internal Medicine 06/02/24 documented as of this encounter
--- OUTSIDE RECORDS SUMMARY | 2025-01-12 13:57 | XMS_ITS | Encounter Summary ---
Author Organization [employer] Address [address] [place] [address] 7 [place] [address] Care Team Providers Care Forklift Picker Name Role Phone Cash Arevalo MD Primary Care Provider Cecy Stephen Primary Care Provider Debra vaCecy Moralez Primary Care Provider Debra vaHue Dunne MD Primary Care Pro vider Fely Bowens PharmD Unavailable [phone] Encounter Details Date Type Department Care Team (Late st Contact Info) Description 03/23/2022 Telephone [facility] MEDICINE [address] [place] [address] [phone] Cash Arevalo MD Social History Tobacco Use [...] Upcoming Encounters Date Type Department Care Team ([facility] Contact Info) Description 02/20/2025 9:45 AM EST Office Visit [facility] MEDICINE [address] [place] [phone] Hue Meza MD [address] [place] [address] 04/20/2025 11:30 AM EST Medication Management [facility] MEDICINE [address] [place] [address] Taylor Chan, BessyD [address] [place] [address] documented as of this encounter Visit Diagnoses Not on filedocumented in this encounter Care Teams Forklift Picker Relationship Specialty Start Date End Date Cash Arevalo MD PCP - General Family Medicine 01/29/19 03/23/22 Cecy Gonzalez FNP PCP - General Family Medicine 03/24/22 08/21/22 Cecy Gonzalez FNP PCP - General Family Medicine 08/22/22 12/21/22 Hue Meza MD [address] [place] [phone] PCP - General Internal Medicine 12/22/22 Fely Bowens, BessyD [address] [place] [phone] Pharmacist Internal Medicine 06/02/24 documented as of this encounter
--- OUTSIDE RECORDS SUMMARY | 2025-01-12 13:57 | XMS_ITS | Encounter Summary ---
Author Organization [employer] Address [address] [facility] [address] [place] [address] Care Team Providers Care Locomotive Electrician Name Role Phone Hue Meza MD Primary Care Pro vider Fely Bowens PharmD Unavailable [phone] Encounter Details Date Type Department Care Team (Late st Contact Info) Description 11/27/2024 Results Follow-Up [facility] MEDICINE [address] [place], [place] [phone] Hue Meza MD [address] [place], [place] [phone] BD DEXA Axial Social History Tobacco Use [...] 11/27/2024 12:19 PM EDT Ordered by her network control operator documented in this encounter Plan of Treatment Upcoming Encounters Date Type Department Care Team (Late st Contact Info) Description 02/20/2025 9:45 AM EST Office Visit [facility] MEDICINE [address] [place] [phone] Hue Meza MD [address] [place] [phone] 04/20/2025 11:30 AM EST Medication Management [facility] MEDICINE [address] [place] [phone] Taylor Chan, BessyD [address] [place] [phone] documented as of this encounter Goals Goal Patient Goal Type Associated Problems Recent Progress Patient-Stated? Author Blood Pressure < 140/90 Blood Pressure 124/60(2024 11:06 AM EDT) No Boby Anand Hemoglobin A1c < 8 Result Component 8.2( 5 11:04 AM EDT) No Boby Anand documented as of this encounter Visit Diagnoses Not on filedocumented in this encounter Additional Health Concerns Assessment Noted Time PHQ-9 Depression Total Score: 10 025 11:07 AM EDT documented as of this encounter Care Teams Locomotive Electrician Relationship Specialty Start Date End Date Hue Meza MD [address] [place] [phone] PCP - General Internal Medicine 12/22/22 Fely Bowens PharmD [address] [place] [phone] Pharmacist Internal Medicine 06/02/24 documented as of this encounter
--- OUTSIDE RECORDS SUMMARY | 2025-01-12 13:58 | XMS_ITS | Encounter Summary ---
Author Organization [employer] Address [address] [facility] [address] [place] [address] Care Team Providers Care Supervisor Central Supply Name Role Phone Hue Meza MD Primary Care Pro vider Fely Bowens PharmD Unavailable [phone] Reason for Visit * Reason Comments Med Refill Encounter Details Date Type Department Care Team (Late st Contact Info) Description 01/24/[address] [facility] MEDICINE [address] [place], [place] [phone] Hue Meza MD [address] [place], [place] [phone] Closed fracture dislocation of lumbar spine, sequela [...] Description 02/20/2025 9:45 AM EST Office Visit [address] [address] Hue Meza MD [address] [place] [phone] 04/20/2025 11:30 AM EST Medication Management [address] [address] Taylor Chan, PharmD [address] [place] [phone] documented as of this encounter Goals Goal Patient Goal Type Associated Problems Recent Progress Patient-Stated? Author Blood Pressure < 140/90 Blood Pressure 124/60(2024 11:06 AM EDT) No Boby Anand Hemoglobin A1c < 8 Result Component 8.2( 11:04 AM EDT) No Boby Anand documented as of this encounter Visit Diagnoses Diagnosis Closed fracture dislocation of lumbar spine, sequela documented in this encounter Additional Health Concerns Assessment Noted Time PHQ-9 Depression Total Score: 15 023 1:49 PM EDT documented as of this encounter Care Teams Supervisor Central Supply Relationship Specialty Start Date End Date Hue Meza MD [address] [place] [phone] PCP - General Internal Medicine 12/22/22 Fely Bowens, Jamie [address] [place] [phone] Pharmacist Internal Medicine 06/02/24 documented as of this encounter
--- OUTSIDE RECORDS SUMMARY | 2025-01-12 13:58 | XMS_ITS | Encounter Summary ---
Author Organization [employer] Address [address] [place] [address] [address] [place] [address] Care Team Providers Care Seed Production Field Supervisor Name Role Phone Cecy Gonzalez SEL[employer] SEALING [employer]ILDER Primary Care Provider Debra vailaCecy Brown SELF SEALING [employer] T[employer] BUILDER Primary Care Provider Debra vailable Hue Meza MD Primary Care Pro vider Fely Bowens PharmD Unavailable [phone] Encounter Details Date Type Department Care Team (Late st Contact Info) Description 05/15/2022 Orders Only [facility] [address] [place], [place] [phone] Lindsey Ascencio LPN Social History Tobacco Use [...] Department Care Team (Late Contact Info) Description 02/20/2025 9:45 AM EST Office Visit [address] [phone] Hue Meza MD [address] [place] [address] [phone] 04/20/2025 11:30 AM EST Medication Management [address] [phone] Taylor Chan, PharmD [address] [place] [address] documented as of this encounter Procedures Procedure Name Priority Date/Time Associated Diagnosis Comments T4, FREE Routine 11/02/2022 2:27 PM EDT documented in this encounter Results * T4, Free (11/02/2022 2:27 PM EDT) Free T4 (Free Thyroxine) 1.72 0.71 - 1.85 ng/dL [facility] 11/02/2022 2:27 PM EDT 11/02/2022 4:03 PM EDT Cecy [facility] BLOOD ORDERABLES Final Result [facility] [address] [place] [phone] [phone] documented in this encounter Visit Diagnoses Not on filedocumented in this encounter Care Teams Seed Production Field Supervisor Relationship Specialty Start Date End Date Cecy Gonzalez FNP PCP - General Family Medicine 03/24/22 08/21/22 Cecy Gonzalez FNP PCP - General Family Medicine 08/22/22 12/21/22 Hue Meza MD [address] [place] [address] PCP - General Internal Medicine 12/22/22 Fely Bowens PharmD [address] [place], [place] [phone] Pharmacist Internal Medicine 06/02/24 documented as of this encounter
--- OUTSIDE RECORDS SUMMARY | 2025-01-12 13:58 | XMS_ITS | Clinical Summary ---
Author Organization [facility] Address [address] [place] [address] Care Team Providers Care Veneer Gluer Name Role Phone Hue Meza MD Primary Care Pro vider Fely Bowens PharmD Unavailable [phone] Allergies Active Allergy Reactions Criticality Noted Date [...] anxiety, unspecified dementia severity, unspecified dementia type ([facility]/HCC) ([facility]) TAKE 1 TABLET BY MOUTH AT BEDTIME 28 tablet 3 023 Active glucose blood (FREESTYLE LITE) test stripIndication s:Type 2 diabetes mellitus with other specified complication, unspecified whether 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 180 tablet 3 024 Active pantoprazole (ProtoNix) 40 MG EC tablet TAKE 1 TABLET BY MOUTH EVERY MORNING 30 MINUTES BEFORE BREAKFAST Active TRUEplus Lancets 33G misc TEST BLOOD SUGAR THREE TIMES DAILY 100 each Active Easy Touch Pen Berea 31G X 8 MM misc USE ONCE DAILY WITH LANTUS 100 each 024 Active Acetaminophen Extra Strength 500 MG tablet Active senna (Senokot) 8.6 MG tablet TAKE 1 TABLET BY MOUTH AT BEDTIME FOR CONSTIPATION 025 Active Aspirin Low Dose 81 MG EC tabletIndicatio ns:Atherosclero sis of coronary artery of [place] heart, unspecified vessel or lesion type, unspecified whether angina present TAKE 1 TABLET BY MOUTH EVERY MORNING 90 tablet 1 025 Active insulin lispro (HumaLOG) 200 UNIT/ML solution pen-injector penIndications: Type 2 diabetes mellitus with other specified complication, with long-term current use of insulin ([facility]) Sliding scale, to use insuline with meals 150 to 200 2 units, 201 to 250 3 units, 251 to 300 4 units , > 300 5 units 1 each 2 025 Active atorvastatin (Lipitor) 40 MG tablet TAKE 1 TABLET BY MOUTH EVERY MORNING 90 tablet 025 Active glucose 4 g chewable tablet Chew 4 tablets (16 g) if needed for low blood sugar. 50 tablet 12 025 2025 Active Tyenne 162 MG/0.9ML solution auto-injector 025 Active famotidine (Pepcid) 20 MG tablet TAKE 1 TABLET BY MOUTH EVERY MORNING 90 tablet 025 Active Diclofenac Sodium (Voltaren) 1 % gel Apply 2 g topically if needed in the morning and at bedtime (muscle pain). 100 g Active albuterol (Ventolin HFA) 108 (90 Base) MCG/ACT inhaler Inhale 2 puffs every 4 (four) hours if needed for shortness of breath. 18 g 025 Active cyanocobalamin (Vitamin B-12) 500 MCG tablet Take 1 tablet (500 mcg) by mouth 1 (one) time per week. TAKE 1 TABLET weekly 90 tablet 025 Active albuterol (2.5 MG/3ML) 0.083% nebulizer solution [...] IN THE EVENING WITH FOOD 180 tablet Active amLODIPine (Norvasc) 5 MG tablet TAKE 1 TABLET BY MOUTH EVERY EVENING 90 tablet Active Blood Pressure kit 1 Device Once per day. 1 kit Active pyridoxine (Vitamin B-6) 50 MG tablet TAKE 1 TABLET BY MOUTH EVERY MORNING 90 tablet 1 Active FLUoxetine (PROzac) 10 MG capsule TAKE 1 CAPSULE BY MOUTH EVERY MORNING 90 capsule 025 Active furosemide (Lasix) 20 MG tabletIndicatio ns:Chronic diastolic (congestive) heart failure (HCC) TAKE 1 TABLET BY MOUTH EVERY MORNING 90 tablet 025 Active gabapentin (Neurontin) 300 MG capsuleIndicati ons:Neuropathy TAKE 1 CAPSULE BY MOUTH AT BEDTIME 30 capsule 5 Active Glyxambi 10-5 MG TAKE 1 TABLET BY MOUTH EVERY MORNING 30 tablet 5 Active fluticasone (Flonase) 50 MCG/ACT nasal spray INSTILL 1-2 SPRAYS IN EACH NOSTRIL ONCE DAILY NEEDED FOR ALLERGIES Active folic acid (Folvite) 1 MG tablet Take 1,000 mcg by mouth in the morning. Active methotrexate 2.5 MG tablet Take 6 tablets by mouth every 7 (seven) days. Active denosumab (Prolia) 60 MG/ML solution prefilled syringe Inject 60 mg under the skin every 6 (six) months. Active insulin glargine (Lantus SoloStar) 100 UNIT/ML penIndications: Type 2 diabetes mellitus without complication, with long-term current use of insulin (HCC) Inject 22 Units under the skin at bedtime. 15 mL 5 025 2025 Active Blood Pressure Monitor kitIndications: Annual physical exam 1 kit in the morning. 1 kit 023 2024 Discontinued(M ed list cleanup (will not trigger notification to Pharmacy)) Continuous Glucose Crown [employer] Machine [employer] (FreeStyle Wil[place] 3 [place]) device 1 each Once per day. 1 each 024 2024 Discontinued(M ed list cleanup (will not trigger notification to Pharmacy)) insulin glargine (Lantus SoloStar) 100 UNIT/ML penIndications: Type 2 diabetes mellitus without complication, with long-term current use of insulin ([facility]) Inject 20 Units under the skin at bedtime. 15 mL 5 024 2024 Discontinued(R eorder (will not trigger notification to Pharmacy)) pyridoxine (Vitamin B-6) 50 MG tablet TAKE 1 TABLET BY MOUTH EVERY MORNING 90 tablet 1 2024 Discontinued Continuous Glucose Sensor (FreeStyle Wilmar 3 Sensor) miscIndications :Type 2 diabetes mellitus with other specified complication, with long-term current use of insulin ([facility]) USE DIRECTED 2 each 3 025 2024 Discontinued(M ed list cleanup (will not trigger notification to Pharmacy)) gabapentin (Neurontin) 300 MG capsuleIndicati ons:Neuropathy TAKE 1 CAPSULE BY MOUTH AT BEDTIME 30 capsule 5 025 2024 Discontinued Enbrel SureClick 50 MG/ML injection 2024 Discontinued(M ed list cleanup (will not trigger notification to Pharmacy)) furosemide (Lasix) 20 MG tabletIndicatio ns:Chronic diastolic (congestive) heart failure (HCC) TAKE 1 TABLET BY MOUTH EVERY MORNING 90 tablet 2024 Discontinued FLUoxetine (PROzac) 10 MG capsule TAKE 1 CAPSULE BY MOUTH EVERY MORNING 90 capsule 025 2024 Discontinued empagliflozin-l inagliptin (Glyxambi) 10-5 MG Take 1 tablet by mouth Once per day. 90 tablet 025 2024 Discontinued predniSONE (Deltasone) 20 MG tablet 2 tabs po daily for 5 days 10 tablet 2024 Discontinued(M ed list cleanup (will not trigger notification to Pharmacy)) alendronate (Fosamax) 70 MG tablet Take 1 tablet (70 mg) by mouth every 7 (seven) days. Take in the morning with a full glass of water, on an empty stomach, and do not take anything else by mouth or lie down for the next 30 min. 4 tablet 11 2024 Discontinued(A lternate therapy) Active Problems Problem Noted Date Diagnosed Date Acute exacerbation of chroni c obstructive pulmonary disease (COPD) ([facility]) 10/10/2024 Senile purpura 10/10/2024 Dizziness 08/12/2024 Eye [...] Elevated alkaline phosphatase level 05/22/2023 Rheumatoid arthritis ([facility]) 03/04/2023 Lumbar vertebral fracture ([facility]) 03/04/2023 Assessment & Plan (09/02/2024 2:28 PM [...] weeks. 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 Reports she was not contacted yet for f/u by TB clinic [facility] Assessment & Plan (12/21/2022 11:17 AM EDT): Provider called [facility] TB during visit requesting status of appt. No answer Also gave family phone number to call [facility] TB directly RTC if cough worsens [...] Last Dental Exam: N, referral sent to [facility] Dental 07/2023 Assessment & Plan (11/05/2023 12:20 PM EDT): Assessment: - NOT at goal of A1c less than 7% or fasting BG between 70-130 mg/dL per ADA guidelines. Plan/ Recommendations: - START using [employer] wilmar 3 today; demonstrated and applied during [...] for: B12 Moderate chronic obstructive pulmonary disease ( CMS/HCC) 10/22/2014 Overview (12/05/2022): Cough is worsening Unknown [...] contacted yet for f/u by TB clinic [facility] Provider called [facility] TB during visit requesting status of appt. No answer Also gave family phone number to call [facility] TB directly RTC if cough worsens F/u PRN Assessment & Plan (11/02/2022 6:31 PM EDT): Wheezing noted exam Recommended SANTOS use PRN F/u PRN Obstructive sleep apnea syndrome 10/13/2014 Gastroparesis 12/10/2013 Osteopenia 09/24/2012 Hyperlipidemia 06/27/2012 Atherosclerosis of coronary artery of [place] heart with other form of angina pectoris, unspecified vessel or lesion type 06/18/2012 Assessment & Plan (12/21/2022 11:13 AM EDT): Refill aspirin for medbox program F/u PRN Diabetic polyneuropathy 06/18/2012 Resolved Problems Problem Noted Date Diagnosed Date Resolved Date Chronic cough 08/17/2023 10/17/2023 Encounters Date Type Department Care Team Description 01/06/2025 Travel 12/25/2024 Refill [facility] [address] [place] [address] Hue Meza MD Neuropathy 12/18/2024 Refill [facility] [address] [place] [address] Hue Meza MD Neuropathy 12/17/2024 Refill [facility] [address] [place] [address] Hue Meza MD Chronic diastolic (congestive) heart failure (HCC) 12/01/2024 Orders Only [facility] [address] [place] [address] Hue Meza MD 11/28/2024 Telephone [facility] [address] [place] [address] Hue Meza MD dec recall 11/27/2024 Results Follow-Up [facility] [address] [place] [address] Hue Meza MD BD DEXA Axial 11/27/2024 Orders Only [facility] External Provider, [facility] 11/25/2024 Refill [facility] [address] [place] [address] Zoila Romero MD Essential hypertension 11/18/2024 Telephone [facility] [address] [place] [address] Hue Meza MD Appointment 11/10/2024 Refill [facility] [address] [place] [address] Hue Meza MD 10/29/2024 Telephone [facility] [address] [place] [address] Hue Meza MD oct recall 10/20/2024 Telephone [facility] [address] [place] [address] Hue Meza MD Durable Medical Equipment from Last 3 Months Immunizations Immunization Administration Dates Next Due Hep B, adult 06/02/2024,03/15/2017,02/07/2017 Influenza injectable quadriv alent IIV4 with preservative 02/07/2017 Influenza injectable quadriv alent preservative free 03/02/2023 Influenza, High Dose Seasona l, Preservative Free 01/06/2025,11/30/2023,11/28/2018 Influenza, IIV3, injectable 11/28/2018, 7,04/13/2014 Influenza, Split [...] Sign Reading Time Taken Comments Blood Pressure 124/60 01/06/2025 11:06 AM EDT Pulse 65 01/06/2025 11:06 AM EDT Temperature 36.2 C (97.1 F) [...] Description 02/20/2025 9:45 AM EST Office Visit [facility] [address] [place] [phone] Hue Meza MD [address] [place] [phone] 04/20/2025 11:30 AM EST Medication Management [facility] [address] [place] [phone] Taylor Chan, PharmD [address] [place] [phone] Health Maintenance Due Date Last Done Comments Diabetes: Foot Exam 12[birth year]17/1955 Eye Exam 12/17/1955 COVID-19 Vaccine ( season) 2024 12/24/2023, 03/02/2023, 01/31/2021, Additional history exists SDOH Screening 11/29/2024 11/30/2023 Depression Monitoring 02/12/2025 08/12/2024, 025 Diabetes: Hemoglobin A1C 04/08/2025 025, 08/29/2024, 06/02/2024, Additional history exists Alcohol/Substance Use Screening 08/12/2025 08/12/2024 Lipid Panel [...] 06/09/2013 Hepatitis C Screening Completed 08/29/2024, 024 Influenza Vaccine Completed 01/06/2025, , 03/02/2023, Additional history exists HIB Vaccines Aged Out No longer eligi [...] 140/90 Blood Pressure 124/60(2024 11:06 AM EDT) Boby Connelly Hemoglobin A1c < 8 Result Component 8.2( 11:04 AM EDT) No Boby Anand Procedures Procedure Name Priority Date/Time Associated Diagnosis Comments POCT GLYCATED HEMOGLOBIN, TOTAL Routine 01/06/2025 11:04 AM EDT Type 2 diabetes mellitus without complication, with long-term current use of insulin (HCC) TSH Routine 11/27/2024 2:14 PM EDT MAGNESIUM Routine 11/27/2024 2:14 PM EDT COMPREHENSIVE METABOLIC PANEL Routine 11/27/2024 2:14 PM EDT HIGH SENSITIVITY TROPONIN I Routine 11/27/2024 2:14 PM EDT CBC WITH AUTO DIFFERENTIAL Routine 11/27/2024 2:14 PM EDT BD DEXA AXIAL Routine 11/27/2024 11:15 AM EDT ALBUMIN, RANDOM URINE W/CREATININE Routine 09/02/2024 2:28 PM EDT Health care maintenance HEPATITIS C AB W/REFL TO HCV RNA, QN, PCR Routine 08/29/2024 12:30 PM EDT Health care maintenance LIPID PANEL, STANDARD Routine 08/29/2024 12:30 PM EDT Health care maintenance from Last 3 Months or Most Recently Relevant to Health Maintenance Results * (ABNORMAL) POCT A1c (01/06/2025 11:04 AM EDT) Pathologist [facility] Hemoglobin A1C 8.2(A) 4.0 - 5.7 % QC Media Lot # [id number] Lot# Expiration Date [id number] Blood 01/06/2025 11:0 4 AM EDT us Hue Lopez MD POINT OF CARE VELMA T ENTER/EDIT ORDERABLES Final Result * High Sensitivity Troponin I (11/27/2024 2:14 PM EDT) Pathologist [facility] TROPONIN I HIGH SENSITIVITY 7.5 <3.5 - 17.0 ng/L [facility] Comment:The [facility] high sens itivity Troponin-I results should beused in conjunction with other diagnostic information suchas ECG, clinical observations and information, and patientsymptoms to aid in the diagnosis of ME. 11/27/2024 2:14 PM EDT 11/27/2024 2:16 PM EDT us Generic External Data Provider LAB BLOOD ORDERAB LES Final Result [facility] [address] [place] [phone] * (ABNORMAL) CBC auto differential (11/27/2024 2:14 PM EDT) Pathologist [facility] White Blood Count 8.2 4.8 - 10.8 X10*3/uL [facility] Red Blood Count 4.26 4.20 - 5.50 X10*6/uL [facility] Hemoglobin 12.9 12.0 - 16.0 g/dl [facility] Hematocrit 39.5 37.0 - 47.0 % [facility] Mean Corpuscular Volume 92.7 80.0 - 98.0 fL [facility] Mean Corpuscular Hemoglobin 30.3 27.0 - 33.0 pg [facility] Mean Corpuscular HGB Conc 32.7 31.0 - 35.0 g/dl [facility] Red Cell Distribution Width 13.5 11.0 - 16.0 % [facility] Platelet Count 238 160 - 400 X10*3/uL [facility] Mean Platelet Volume 11.0 9.4 - 12.3 fL [facility] Neutrophils Percent Auto 45.4 45 - 73 % [facility] Imm Gran Pct Auto 0.2 0.0 - 0.4 % [facility] Lymphocytes Percent Auto 34.3 20 - 40 % [facility] Monocytes Percent Auto 13.8(H) 2 - 11 % [facility] Eosinophils Percent Auto 5.6(H) 0 - 4 % [facility] Basophils Percent Auto 0.7 0 - 2 % [facility] NRBC Pct Auto 0.0 0.0 - 0.2 /100WBC [facility] Neutrophils Absolute Auto 3.7 2.0 - 8.3 x10*3/uL [facility] Imm Gran Abs Auto 0.02 0.00 - 0.03 X10*3/uL [facility] Lymphocytes Absolute Auto 2.8 1.2 - 4.9 X10*3/uL [facility] Monocytes Absolute Auto 1.1 0.1 - 1.2 X10*3/uL [facility] Eosinophils Absolute Auto 0.5(H) 0.0 - 0.4 X10*3/uL [facility] Basophils Absolute Auto 0.1 0.0 - 0.2 X10*3/uL [facility] NRBC Abs Auto 0.000 0.0 - 0.012 X10*3/uL [facility] 11/27/2024 2:14 PM EDT 11/27/2024 2:16 PM EDT us Generic External Data Provider LAB BLOOD ORDERAB LES Final Result [facility] [address] [place] [address] [phone] * TSH (11/27/2024 2:14 PM EDT) Thyroid Stimulating Hormone 1.20 0.32 - 4.0 uIU/mL [facility] Comment:TSH 3rd Generation ( [facility]) 11/27/2024 2:14 PM EDT 11/27/2024 2:16 PM EDT us Generic External Data Provider LAB BLOOD ORDERAB LES Final Result Performing Organization Address [facility] Co de Phone Number [facility] [address] [place] [phone] * Magnesium (11/27/2024 2:14 PM EDT) [facility] Magnesium 2.3 1.6 - 2.6 mg/dL [facility] 11/27/2024 2:14 PM EDT 11/27/2024 2:16 PM EDT Generic External Data Provider LAB BLOOD ORDERAB LES Final Result Performing Organization Address [facility] Phone Number [facility] [address] [place] [phone] * (ABNORMAL) Comprehensive Metabolic Panel (11/27/2024 2:14 PM EDT) [facility] Sodium 144 135 - 145 mmol/L [facility] Potassium 4.3 3.3 - 5.1 mmol/L [facility] Comment:Slight Hemolysis.Int erpret result with caution. Chloride 107 96 - 108 mmol/L [facility] Carbon Dioxide 30(H) 22 - 29 mmol/L [facility] Anion Gap 11(L) 12 - 20 [facility] Urea Nitrogen (BUN) 15 9 - 16 mg/dL [facility] Creatinine, Serum 1.02 0.5 - 1.4 mg/dL [facility] Creatinine Clr Calc Pharmacy 37.3 [facility] Comment:Provided height and weight: 149.86 cm,65.3 kg.eGFR (calculated from the MDRD study equation) and eCrCl(calculated from the Cockcroft-Gault equation) are based ondifferent parameters and may not yield comparable results.If eCrCl result is absurd, please check patient'sheight/weight. Estimated Glomerular Filt Rate 52 [facility] Comment:Chronic Kidney Disea se: Estimated GFR < 60 mL/min/[id number] Kidney Disease: Estimated GFR < 15 mL/min/1.73m2 Glucose 138(H) 60 - 115 mg/dL [facility] Calcium 8.8 8.4 - 10.2 mg/dL [facility] Bilirubin, Total 0.4 0.0 - 1.0 mg/dL [facility] Aspartate Amino Transferase 47(H) 5 - 31 U/L [facility] Comment:Slight Hemolysis.Int erpret result with caution. Alanine Aminotransferase 29 0 - 31 U/L [facility] Total Protein 7.3 6.5 - 8.0 g/dL [facility] Albumin Level 4.2 3.5 - 5.0 g/dL [facility] Alkaline Phosphatase 106 39 - 117 U/L [facility] 11/27/2024 2:14 PM EDT 11/27/2024 2:16 PM EDT us Generic External Data Provider LAB BLOOD ORDERAB LES Final Result Performing Organization Address City/State/[facility] Co de Phone Number [facility] [address] [place] [address] [phone] * BD DEXA Axial (11/27/2024 11:15 AM EDT) Anatomical Region Laterality Modality Body Radiographic Azul ging 11/27/2024 11:1 5 AM EDT Narrative 11/27/2024 11:55 AM EDT [facility] [address] [place] [address] Mammography Report Signed Patient: Hue Murphy MR#: [id number] : 1945 Acct:[id number] Age/Sex: 78 / F ADM Date: 11/27/24 Loc: HO.MAMMO Attending Dr: Mima Black MD Ordering Physician: Mima Black MD Results: Date of Service: 11/27/24 Follow Up: Procedure(s): XR DEXA axial skeleton Accession Number(s): [id number] cc: Mima Black MD; Hue Meza MD EXAMINATION: DXA BONE DENSITY AXIAL HISTORY: M81.0 - Age-related osteoporosis without current pathological fracture TECHNIQUE: Laguo Dual energy absorptiometry (DEXA) of the lumbar [...] is a trademark of the [employer] [place] for Metabolic Bone Disease, a World Health Organization (WHO) Collaborating Center. Electronically signed by: Theron Nelson MD 11/27/2024 11:53 AM EDT RP Dictated By: Theron Nelson MD Signed By: <Electronically signed by Theron Nelson MD in OV> 11/27/24 1153 DD/ 1115 TD/TT: 11/27/24 1149 Tool Clerk: Procedure Note Donotuseinterpreter, Image - 11/27/[facility] [address] [place], [place] [address] Mammography Report Signed Patient: Hue Murphy [facility]#: [id number] : 1945cct:[id number] Age/Sex: 78 / FADM Date: 11/27/24 Loc: HOComfortMAMMO Attending Dr: Mima Black MD Ordering Physician: Mima Blackesults: Date of Service: 11/27/24Follow Up: Procedure(s): XR DEXA axial skeleton Accession Number(s): [id number] cc: Mima Black MD; Hue Meza MD EXAMINATION: DXA BONE DENSITY AXIAL HISTORY: M81.0 - Age-related osteoporosis without current pathological fracture TECHNIQUE: Laguo Dual energy absorptiometry (DEXA) of the lumbar [...] of the [employer] [place] for Metabolic Bone Disease, a World Health Organization (WHO) Collaborating Center. Electronically signed by: Theron Nelson MD 11/27/2024 11:53 AM EDT RP Dictated By: Theron Nelson MD Signed By: <Electronically signed by Theron Nelson MD in OV> 11/27/24 1153 DD/ 1115 TD/TT: 11/27/24 1149 Tool Clerk: us [facility] External Provider IMG DXA PROCEDURES Final Result * Albumin, Random Urine W/Creatinine (09/02/2024 2:28 PM EDT) Creatinine, Urine 38.57 mg/dL [facility] Microalbumin Urine 5.0 mg/L [facility] Microalbum Creatinine Ratio Ur 12.9 <30 ug/mg cr [facility] Comment:Albumin/Creatinine R atio Reference Ranges: Normal: < 30 ug/mg creatinine Microalbuminuria: 30 - 300 ug/mg creatinineClinical Albuminuria: > 300 ug/mg creatinine Urine (Urine, Random) 09/02/2024 2:28 PM EDT 09/02/2024 4:05 PM EDT Hue Lopez MD LAB URINE ORDERAB LES Final Result [facility] [address] [place] [phone] * Hepatitis C Antibody with Reflex to HCV, RNA, Quantitative, Real-Time PCR (08/29/2024 12:30 PM EDT) Hepatitis C Antibody Nonreactive Nonreactive [facility] Comment:Antibodies to HCV no t detected; does not exclude early acuteHCV infection. Blood Venous blood specimen / Unknown 08/29/2024 12:30 PM EDT 08/29/2024 1:01 PM EDT us Hue Lopez MD LAB BLOOD ORDERAB LES Final Result [facility] [address] [place] [address] [phone] * (ABNORMAL) Lipid Panel, Standard (08/29/2024 12:30 PM EDT) Triglycerides 92 <150 mg/dL [facility] Comment:Desirable Triglyceri de: less than 150 mg/dLBorderline High Triglyceride 150-199 mg/dLHigh Triglyceride: 200-499 mg/dLVery High Triglyceride: greater than or equal to 5OO mg/dL Cholesterol 226(H) <200 mg/dL [facility] Comment:Desirable Cholestero l: less than 200 mg/dLBorderline High Cholesterol: 200-239 mg/dLHigh Cholesterol: greater than 239 mg/dL LDL Cholesterol Calculated 78 <100 mg/dL [facility] Comment:Desirable LDL: less than 100 mg/dLNear Optimal/Above Optimal LDL: 110- 129 mg/dLBorderline High LDL: 130-159 mg/dLHigh LDL: 160-189 mg/dLVery High LDL: greater than or equal to 190 mg/dL HDL Cholesterol 130 >40 mg/dL [facility] Comment:Desirable HDL: great er than 40 mg/dL Note: This HDL assay may give artificially low results in patients with liver disease. Blood Venous blood specimen / Unknown 08/29/2024 12:30 PM EDT 08/29/2024 1:01 PM EDT Hue Lopez MD LAB BLOOD ORDERAB LES Final Result [facility] [address] [place] [address] [phone] from Last 3 Months or Most Recently Relevant to Health Maintenance Insurance [facility] [employer] OPT[employer] (O D-SNP) JESS SORENSEN [id number] Care Teams Veneer Gluer Relationship Specialty Start Date End Date Hue Meza MD [address] [place] [address] PCP - General Internal Medicine 12/22/22 Fely Bowens PharmD [address] [place] [address] Pharmacist Internal Medicine 06/02/24
--- OUTSIDE RECORDS SUMMARY | 2025-01-12 13:58 | XMS_ITS | Encounter Summary ---
Author Organization [employer] Address [address] [facility] 7t [place] [address] Care Team Providers Care Sulky Driver Name Role Phone Cash Arevalo MD Primary Care Provider Debrava Cecy Moralez Primary Care Provider Debra vailaCecy Brown Primary Care Provider Debra vailable Hue Meza MD Primary Care Pro vider Fely Bowens PharmD Unavailable [phone] Reason for Visit * Reason Onset Date Comments transfer pt appt 03/23/2022 Encounter Details Date Type Department Care Team (Late st Contact Info) Description 03/23/2022 Telephone [facility] [address] [place] [address] Cash Arevalo MD transfer pt appt Social [...] Description 02/20/2025 9:45 AM EST Office Visit [address] [phone] Hue Meza MD [address] [place] [address] [phone] 04/20/2025 11:30 AM EST Medication Management [address] [address] Taylor Chan, PharmD [address] [place] [address] [phone] documented as of this encounter Visit Diagnoses Not on filedocumented in this encounter Care Teams Sulky Driver Relationship Specialty Start Date End Date Cash Arevalo MD PCP - General Family Medicine 01/29/19 03/23/22 Cecy Gonzalez FNP PCP - General Family Medicine 03/24/22 08/21/22 Cecy Gonzalez FNP PCP - General Family Medicine 08/22/22 12/21/22 Hue Meza MD [address] [place] [address] [phone] PCP - General Internal Medicine 12/22/22 Fely Bowens, BessyD [address] [place] [address] [phone] Pharmacist Internal Medicine 06/02/24 documented as of this encounter
--- OUTSIDE RECORDS SUMMARY | 2025-01-12 13:58 | XMS_ITS | Encounter Summary ---
Author Organization [employer] Address [address] [facility] 7t [place] [address] Care Team Providers Care Cosmetics Machine Operator Name Role Phone Hue Meza MD Primary Care Pro vider Fely Bowens PharmD Unavailable [phone] Reason for Visit * Reason Comments Med Refill Encounter Details Date Type Department Care Team (Late st Contact Info) Description 12/06/2023 Refill [facility] MEDICINE [address] [place], [place] [phone] Racheal Mcclain, PharmD [address] [place], [place] [phone] Social History Tobacco Use Types Packs/Day Years [...] Description 02/20/2025 9:45 AM EST Office Visit [address] [address] Hue Meza MD [address] [place] [phone] 04/20/2025 11:30 AM EST Medication Management [address] [address] Taylor Chan, PharmD [address] [place] [address] documented as of this encounter Goals Goal Patient Goal Type Associated Problems Recent Progress Patient-Stated? Author Blood Pressure < 140/90 Blood Pressure 124/60(2024 11:06 AM EDT) Boby Connelly Hemoglobin A1c < 8 Result Component 8.2( 11:04 AM EDT) Boby Connelly documented as of this encounter Visit Diagnoses Not on filedocumented in this encounter Additional Health Concerns Assessment Noted Time PHQ-9 Depression Total Score: 12 024 11:37 AM EDT documented as of this encounter Care Teams Cosmetics Machine Operator Relationship Specialty Start Date End Date Hue Meza MD [address] [place], [place] [phone] PCP - General Internal Medicine 12/22/22 Fely Bowens PharmD [address] [place] [address] Pharmacist Internal Medicine 06/02/24 documented as of this encounter
--- OUTSIDE RECORDS SUMMARY | 2025-01-12 13:58 | XMS_ITS | Encounter Summary ---
Author Organization [employer] Address 75 [facility] 7t [place] [address] Care Team Providers Care Crew Boat Operator Name Role Phone Hue Meza MD Primary Care Pro vider Fely Bowens PharmD Unavailable [phone] Reason for Visit * Reason Comments Med Refill Encounter Details Date Type Department Care Team (Late st Contact Info) Description 12/18/2024 Refill [facility] [address] [place], [place] [phone] Hue Meza MD [address] [place] [address] Neuropathy Social History Tobacco Use Types Packs/Day [...] Description 02/20/2025 9:45 AM EST Office Visit [address] [address] Hue Meza MD [address] [place] [address] 04/20/2025 11:30 AM EST Medication Management [address] [address] Taylor Chan, PharmD [address] [place] [address] documented as of this encounter Goals Goal [...] Assessment Noted Time PHQ-9 Depression Total Score: 08/12/2 025 11:07 AM EDT documented as of this encounter Care Teams Crew Boat Operator Relationship Specialty Start Date End Date Hue Meza MD [address] [place], [place] [phone] PCP - General Internal Medicine 12/22/22 Fely Bowens PharmD [address] [place] [address] [phone] Pharmacist Internal Medicine 06/02/24 documented as of this encounter
--- OUTSIDE RECORDS SUMMARY | 2025-01-12 13:58 | XMS_ITS | Encounter Summary ---
Author Organization [employer] Address 75 [facility] 7t [place] [address] Care Team Providers Care Senior Android Software Engineer Name Role Phone Hue Meza MD Primary Care Pro vider Fely Bowens PharmD Unavailable [phone] Reason for Visit * Reason Comments Med Refill Encounter Details Date Type Department Care Team (Late st Contact Info) Description 06/21/2024 Refill [facility] [address] [place], [place] [phone] Hue Meza MD [address] [place] [address] Neuropathy Social History Tobacco Use Types Packs/Day [...] Description 02/20/2025 9:45 AM EST Office Visit [address] [address] Hue Meza MD [address] [place] [phone] 04/20/2025 11:30 AM EST Medication Management [address] [address] Taylor Chan, PharmD [address] [place] [address] documented as of this encounter Goals Goal [...] documented as of this encounter Care Teams Senior Android Software Engineer Relationship Specialty Start Date End Date Hue Meza MD [address] [place] [address] [phone] PCP - General Internal Medicine 12/22/22 Fely Bowens PharmD [address] [place] [address] [phone] Pharmacist Internal Medicine 06/02/24 documented as of this encounter
--- OUTSIDE RECORDS SUMMARY | 2025-01-12 13:58 | XMS_ITS | Encounter Summary ---
Author Organization [employer] Address 75 [facility] 7t [place] [address] Care Team Providers Care Pasteurizer Helper Name Role Phone Hue Meza MD Primary Care Pro vider Fely Bowens PharmD Unavailable [phone] Reason for Visit * Reason Comments Med Refill Encounter Details Date Type Department Care Team (Late st Contact Info) Description 12/28/2022 Refill [facility] [address] [place] [address] Cecy Gonzalez, AVIS Dementia without behavioral disturbance, [...] Description 02/20/2025 9:45 AM EST Office Visit [address] [address] Hue Meza MD [address] [place] [address] 04/20/2025 11:30 AM EST Medication Management [address] [address] Taylor Chan, PharmD [address] [place] [phone] documented as of this encounter Goals Goal [...] unspecified dementia severity, unspecified dementia type (CMS/HCC) (HCC) documented in this encounter Additional Health Concerns Assessment Noted Time PHQ-9 Depression Total Score: 15 023 1:49 PM EDT documented as of this encounter Care Teams Pasteurizer Helper Relationship Specialty Start Date End Date Hue Meza MD [address] [place] [phone] PCP - General Internal Medicine 12/22/22 Fely Bowens, Jamie [address] [place] [phone] Pharmacist Internal Medicine 06/02/24 documented as of this encounter
--- OUTSIDE RECORDS SUMMARY | 2025-01-12 13:59 | XMS_ITS | Encounter Summary ---
Author Organization [employer] [facility] Address [address] [place] [address] 7 [place] [address] Care Team Providers Care Feed Manager Name Role Phone Cecy Gonzalez Primary Care Provider Hue Fish MD Primary Care Pro vider Fely Bowens PharmD Unavailable [phone] Reason for Visit * Reason Comments Med Refill Encounter Details Date Type Department Care Team (Late st Contact Info) Description 12/12/2022 Refill [facility] MEDICINE [address] [place] [address] [phone] Cecy Gonzalez FNP Primary hypertension Social History [...] Description 02/20/2025 9:45 AM EST Office Visit [facility] MEDICINE [address] [place] [address] [phone] Hue Meza MD [address] [place], [place] [phone] 04/20/2025 11:30 AM EST Medication Management [facility]INE [address] [place] [address] Taylor Chan, Jamie [address] [place] [address] documented as of this encounter Goals Goal [...] documented as of this encounter Care Teams Feed Manager Relationship Specialty Start Date End Date Cecy Gonzalez FNP PCP - General Family Medicine 08/22/22 12/21/22 Hue Meza MD [address] [place] [phone] PCP - General Internal Medicine 12/22/22 Fely Bowens PharmD [address] [place] [phone] Pharmacist Internal Medicine 06/02/24 documented as of this encounter
--- OUTSIDE RECORDS SUMMARY | 2025-01-12 13:59 | XMS_ITS | Encounter Summary ---
Author Organization [employer] Address 75 [facility] 7t [place] [address] Care Team Providers Care Formal Service Waiter Name Role Phone Hue Meza MD Primary Care Pro vider Fely Bowens PharmD Unavailable [phone] Reason for Visit * Reason Comments Med Refill Encounter Details Date Type Department Care Team (Late st Contact Info) Description 10/10/2024 Refill [facility] MED[facility]INE [address] [place], [place] [phone] Hue Meza MD [address] [place], [place] [phone] Social History Tobacco Use Types Packs/Day Years [...] Description 02/20/2025 9:45 AM EST Office Visit [address] [address] Hue Meza MD [address] [place] [phone] 04/20/2025 11:30 AM EST Medication Management [address] [address] Taylor Chan, PharmD [address] [place] [phone] documented as of this encounter Goals Goal [...] documented as of this encounter Care Teams Formal Service Waiter Relationship Specialty Start Date End Date Hue Meza MD [address] [place], [place] [phone] PCP - General Internal Medicine 12/22/22 Fely Bowens PharmD [address] [place], [place] [phone] Pharmacist Internal Medicine 06/02/24 documented as of this encounter
[2025-01-12 14:16] LABS: Alanine Aminotransferase 36 U/L (0-31); Albumin Level 4.3 g/dL (3.5-5.0); Alkaline Phosphatase 129 U/L (39-117); Anion Gap 10 (12-20); Aspartate Amino Transferase 43 U/L (5-31); Blood Urea Nitrogen 14 mg/dL (9-16); Calcium 8.9 mg/dL (8.4-10.2); Carbon Dioxide 31 mmol/L (22-29); Chloride 108 mmol/L (96-108); Estimated Glomerular Filt Rate 49; Potassium 4.5 mmol/L (3.3-5.1); Sodium 144 mmol/L (135-145); Total Protein 7.4 g/dL (6.5-8.0)
== END 2025-01-12 11:04 | disposition home or self-care (01) ==
LOC: HO.HKASLDS 11:03
PROVIDERS: PCP Student in an Organized Health Care Education/Training Program; Visit Provider Student in an Organized Health Care Education/Training Program
DX: Z79.899 Other long term (current) drug therapy (principal)
CPT/HCPCS: 36415; 80053; 82306

== ENCOUNTER 2025-02-19 11:07 | Outpatient (AMB) | payer OTHER, SELFPAY ==
--- NOTE | 2025-02-19 11:09 | A.OFFVIS_ITS ---
Vital Signs 02/19/25 11:15 Height 4 ft 11 in Weight 143 lb 11.862 oz BMI 29.0 BP 100/64 Blood Pressure Location Rt brachial Position Sitting Pulse 74 Pulse Source Pulse Oximeter Pulse Oximetry (%) 96 Oxygen Delivery Method Room Air Intake Visit Reasons: T2DM A1C 9.4 Intake Note: New patient present today for T2DM. Patient does not have a back up glucometer to finger stick, only using Wilmar 3 sensor. Last Diabetic Eye exam: March 2024 Last Podiatry Visit: No longer is seeing the Pensionholder Information Clerk Random Glucose: 197 mg/dl Hgb A1C: 7.8% 02/19/2025 Named Account Executive Required: Yes Named Account Executive Language: Rpg Programmer Services: Named Account Executive Present Named Account Executive Name: [facility] Ghulam Margaret Information Interpreted: non-clinical & clinical Accompanied by: Niece Allergies losartan Adverse Reaction (Mild, Verified 02/19/25 11:16) Cough Medication List - Last Reconciled 02/19/25 by Theron Rachel MD albuterol sulfate 90 mcg/actuation (Ventolin HFA) 2 puffs inhalation Q4-6H PRN 30 days amlodipine 5 mg PO DAILY aspirin 81 mg PO BEDTIME atorvastatin 40 mg PO BEDTIME blood sugar diagnostic As directed blood-glucose sensor (FreeStyle Wilmar 3 Sensor device) As directed calcium carbonate-vitamin D3 600 mg-20 mcg (800 unit) 600 tabs PO DAILY carvedilol 3.125 mg PO BID cyanocobalamin (vitamin B-12) 1,000 mcg PO DAILY cyanocobalamin (vitamin B-12) 1,000 mcg PO DAILY donepezil 10 mg PO DAILY 90 days famotidine 20 mg PO DAILY fluoxetine 10 mg PO DAILY fluticasone propion-salmeterol 250-50 mcg/dose (Advair Diskus) 1 inh inhalation BID 30 days fluticasone propionate 50 mcg/actuation 2 sprays intranasal DAILY folic acid 1 mg PO DAILY furosemide 20 mg PO DAILY gabapentin 300 mg PO BEDTIME Incruse Ellipta 62.5 mcg/actuation (umeclidinium) 1 inh inhalation DAILY NS insulin glargine (Lantus Solostar U-100 Insulin) 100 units subcut DAILY lancets As directed melatonin 5 mg PO BEDTIME PRN methimazole 10 mg PO BID methotrexate sodium 15 mg (6 x 2.5 mg) PO QWEEK 90 days pantoprazole 40 mg PO QAM pen needle, diabetic As directed pyridoxine (vitamin B6) 50 mg PO DAILY 30 days sennosides (Natural Senna Laxative) 8.6 mg PO BEDTIME sitagliptin phosphate (Januvia) 50 mg PO DAILY tocilizumab-aazg (Tyenne Autoinjector) 162 mg (0.9 mL) subcut Q2W HPI Comments Details: 79 YO F who is seen in consultation for T2DM at the request of PCP. Initially diagnosed with T2DM in age 26 . Was initially started on treatment with insulin and metformin . Current regimen Januvia 50 mg QD. Lantus 22 units, Humalog 1-5 units premeals Has Wilmar sensor Unfortunately, patient did not bring log book, glucometer or sensor to visit Not Reports low sugars . Most recent A1C 7.8 , down from prior 9.4 on []. Family history of T2DM in mother and father ? Type 2. Has eyes checked yearly, last eye exam 03/2024 , Has retinopathy in right eye. Has neuropathy, last foot exam [], sees podiatry. Denies nephropathy, Not on SADE/ARB. UAC [] as measured on []. Has HLD, on statin. Last LDL [] as measured on []. Has CAD. CABG ?? 2011 Not Had diabetes education. [facility] Medical History (Updated 02/19/25 @ 11:20 by Theron Rachel MD) Uncontrolled type 2 diabetes mellitus with hyperglycemia Osteoporosis Insomnia Gout Osteoarthritis of acromioclavicular joints, bilateral Latent tuberculosis Restrictive lung disease CAD (coronary artery disease) Asthma Allergic rhinitis COPD exacerbation COPD (chronic obstructive pulmonary disease) Cough Hypertension Diabetes Surgical History History of hysterectomy Hx of CABG Family History Mother Acute arthritis Social History Household Members: Family Housing: Apartment Do you presently have visiting nurse or other home services: Yes ([facility] and [facility] [employer]) Alcohol intake: never Patient Tobacco Use Status: Never used Tobacco e-Cigarette/Vaping Use: Never Used Second Hand Smoke Exposure: No service: No Current occupational status: unemployed Physical Exam Absence of Cushingoid features. Absence of acromegalic features. Neck exam reveals nl size thyroid about 15 gms. No thyroid nodules palpable. No carotid bruits present. Lungs CTA. Heart S1 S2, Reg R/R. No M/R/ G. Skin exam reveals absence of vitiligo or acanthosis nigricans. Abdominal exam reveals Soft NT/ND with NA BS. No organomegaly present. Neck Other: . Extrem Other: Visual exam of foot performed. No ulcerations or open lesions. No onchomycosis, no callouses.Pulses 2 + distally Sensation intact to monofilament exam. Vibratory sensation sensed is decreased with 128 Hz tuning fork Results AMB Hemoglobin A1c AMB Hemoglobin A1c 7.8 % Last Edit by AXEL Silverio on 02/19/25 11:33 Assessment & Plan Assessment & Plan (1) Uncontrolled type 2 diabetes mellitus with hyperglycemia: Code(s): E11.65 - Type 2 diabetes mellitus with hyperglycemia Category: Medical Plan: This is a 79-year-old female with a history of type 2 diabetes being treated with Januvia and basal insulin with fair but improving glycemic control and no known microvascular or macrovascular complications Plan is to have the patient's self monitor and to talk to the patient about going on a sensor namely Wilmar 3+. Can not make any changes with the patient's regimen because of lack of data today. We will have patient see certified adaptive physical educator and compliance representative. Considering patient's comorbidities, goal HGB A1c should be <8% and at goal . Went over with the patient through belt turner the correlation of poor glycemic control to development and progression of complications . We will have patient follow up with primary care diabetes team Orders: Orders AMB Hemoglobin A1c Today E11.65 - Type 2 diabetes mellitus with hyperglycemia Referrals Diabetes Education Referral E11.65 - Type 2 diabetes mellitus with hy perglycemia Nutrition/Dietitian Referral E11.65 - Type 2 diabetes mellitus with hyperglycemia Coding Level of Care Code New Pt Level 5 (18455) Diagnoses Uncontrolled type 2 diabetes mellitus with hyperglycemia E11.65
[2025-02-19 11:15] VITALS: BP 100/64; PULSE 74; O2SAT 96; BMI 29.0
[2025-02-19 11:29] LABS: Glucose, Whole Blood 197 mg/dL (60-115)
== END 2025-02-19 11:50 | disposition home or self-care (01) ==
LOC: HO.ENCR 11:07
PROVIDERS: PCP Student in an Organized Health Care Education/Training Program; Visit Provider Internal Medicine Endocrinology, Diabetes & Metabolism
DX: E11.65 Type 2 diabetes mellitus with hyperglycemia (principal); Z79.4 Long term (current) use of insulin
CPT/HCPCS: 99204

== ENCOUNTER → 2025-02-19 11:07 | Outpatient (BNVA) | payer OTHER, SELFPAY | PROVIDERS: PCP Student in an Organized Health Care Education/Training Program; Visit Provider Internal Medicine Endocrinology, Diabetes & Metabolism | DX: E11.65 Type 2 diabetes mellitus with hyperglycemia (principal); Z79.4 Long term (current) use of insulin | CPT/HCPCS: 82947; 83036; 99202 ==

== ENCOUNTER 2025-02-20 12:39 | Outpatient (REF) | payer OTHER, SELFPAY ==
--- NOTE | ~2025-02-20 | XR_ITS ---
EXAMINATION: XR CHEST CLINICAL INFORMATION: worsening SOB ,cough COMPARISON: Previous chest x-rays most recent September 2024 TECHNIQUE: 2 views of the chest were obtained. FINDINGS: The lungs are clear. No consolidation or pulmonary edema. No pleural effusion or pneumothorax. Cardiac and mediastinal contours are stable. Mediastinal clips probably from CABG. Calcified thoracic aorta. Degenerative changes of the spine and shoulders. Median sternotomy wires. XR/XR chest 2V IMPRESSION: No evidence for acute disease in the chest. Electronically signed by: Angelica Blel MD 02/20/2025 01:26 PM MARIA LUISA
== END 2025-02-20 12:40 | disposition home or self-care (01) ==
LOC: HO.HHCX 12:39
PROVIDERS: Visit Provider Student in an Organized Health Care Education/Training Program
DX: J44.9 Chronic obstructive pulmonary disease, unspecified (principal)
CPT/HCPCS: 71046

== ENCOUNTER → 2025-02-20 12:39 | Outpatient (BNV) | payer OTHER, SELFPAY | PROVIDERS: Visit Provider Radiology Diagnostic Radiology | DX: R05.9 Cough, unspecified (principal); R06.02 Shortness of breath | CPT/HCPCS: 71046 ==

== ENCOUNTER 2025-02-23 | Outpatient (REF) | payer OTHER, SELFPAY ==
--- OUTSIDE RECORDS SUMMARY | 2025-04-09 11:36 | XMS_ITS | Clinical Summary ---
Author Organization [employer] Address [address] [facility] [address] [place] [address] Care Team Providers Care Entertainer & Comic Name Role Phone Hue Meza MD Primary Care Pro vider Fely Bowens PharmD Unavailable [phone] Allergies Active Allergy Reactions Criticality Noted Date [...] anxiety, unspecified dementia severity, unspecified dementia type ([facility]) ([facility]) TAKE 1 TABLET BY MOUTH AT BEDTIME 28 tablet 3 023 Active glucose blood (FREESTYLE LITE) test stripIndication s:Type 2 diabetes mellitus with other specified complication, unspecified whether termite control technician insulin use ([facility]) TEST BLOOD SUGAR 3 TIMES A DAY 100 strip 11 024 Active Calcium Carbonate-Vit D-Min (Calcium-Vitami n D-Minerals) 600-800 MG-UNIT chewable tablet Chew 1 tablet with breakfast and with evening meal. 180 tablet 3 024 Active pantoprazole (ProtoNix) 40 MG EC tablet TAKE 1 TABLET BY MOUTH EVERY MORNING 30 MINUTES BEFORE BREAKFAST 024 Active Acetaminophen Extra Strength 500 MG tablet 024 Active senna (Senokot) 8.6 MG tablet TAKE 1 TABLET BY MOUTH AT BEDTIME FOR CONSTIPATION Active glucose 4 g chewable tablet Chew 4 tablets (16 g) if needed for low blood sugar. 50 tablet 12 025 2025 Active Tyenne 162 MG/0.9ML solution auto-injector Active cyanocobalamin (Vitamin B-12) 500 MCG tablet [...] days as directed for CGM 2 each 03/27/19 1:55 PM EST Active Blood Pressure kit 1 Device Once per day. 1 kit Active pyridoxine (Vitamin B-6) 50 MG tablet TAKE 1 TABLET BY MOUTH EVERY MORNING 90 tablet 1 Active gabapentin (Neurontin) 300 MG capsuleIndicati ons:Neuropathy TAKE 1 CAPSULE BY MOUTH AT BEDTIME 30 capsule 5 03/10/20 3:57 PM EST Active Glyxambi 10-5 MG TAKE 1 [...] tabletIndicatio ns:Atherosclero sis of coronary artery of [place] tribe heart, unspecified vessel or lesion type, unspecified whether angina present TAKE 1 TABLET BY MOUTH EVERY MORNING 90 tablet 1 02/05/20 11:34 AM EST 025 Active famotidine (Pepcid) 20 MG tablet TAKE 1 TABLET BY MOUTH EVERY MORNING 90 tablet 02/05/20 11:34 AM EST 025 Active atorvastatin (Lipitor) 40 MG tablet TAKE 1 TABLET BY MOUTH EVERY MORNING 90 tablet 1 03/10/20 25 3:57 PM EST 025 Active carvedilol (Coreg) 3.125 MG tabletIndicatio ns:Essential hypertension TAKE 1 TABLET BY MOUTH TWICE DAILY IN THE MORNING AND IN THE EVENING WITH FOOD 180 tablet 03/10/20 3:57 PM EST 025 Active verapamil SR (Calan SR) 120 MG ER tablet Take 120 mg by mouth at bedtime. Do not crush or chew. Active albuterol (Ventolin HFA) 108 (90 Base) MCG/ACT inhaler Inhale 2 puffs every 4 (four) hours if needed for shortness of breath. 18 g 11 03/26/19 26 4:56 PM EST Active ipratropium-alb uterol (Duo-Neb) 0.5-2.5 mg/3 mL nebulizer solutionIndicat ions:Chronic obstructive pulmonary disease, unspecified COPD type (CMS/HCC) (HCC) Take 3 mL by nebulization every 6 (six) hours. 180 mL 2 03/26/19 26 4:56 PM EST 025 2025 Active predniSONE (Deltasone) 20 MG tabletIndicatio ns:Chronic obstructive pulmonary disease, unspecified COPD type (CMS/HCC) (HCC) 2 tabs po daily for 5 days 10 tablet 02/21/20 25 2:13 PM EST 025 Active insulin lispro (HumaLOG KWIKPEN) 200 UNIT/ML solution pen-injector penIndications: Type 2 diabetes mellitus with other specified complication, with long-term current use of insulin (HCC) INJECT THREE TIMES DAILY WITH MEALS PER SLIDING SCALE 150 TO 200= 2 UNITS, 201 TO 250= 3 UNITS, 251 TO 300 = 4 UNITS, > 300 = 5 UNITS 6 mL 2 03/26/19 26 4:56 PM EST 025 Active Diclofenac Sodium 1 % gel APPLY 2 GRAMS TOPICALLY TO TWICE DAILY IN THE MORNING AND AT BEDTIME NEEDED FOR MUSCLE PAIN 100 g 2 026 Active TRUEplus Lancets 33G miscIndications :Type 2 diabetes mellitus without complication, with long-term current use of insulin ([facility]) USE DIRECTED TO TEST BLOOD SUGAR THREE TIMES DAILY 100 each 026 Active Embecta Pen Needle Ultrafine 31G X 8 MM miscIndications :Type 2 diabetes mellitus without complication, with long-term current use of insulin ([facility]) USE DIRECTED EVERY DAY WITH lantus 100 each 11 Active FLUoxetine (PROzac) 10 MG capsule TAKE 1 CAPSULE BY MOUTH EVERY MORNING 90 capsule Active furosemide (Lasix) 20 MG tabletIndicatio ns:Chronic diastolic (congestive) heart failure (HCC) TAKE 1 TABLET BY MOUTH EVERY MORNING 90 tablet Active glucose blood (FreeStyle Precision Feroz Test) test stripIndication s:Type 2 diabetes mellitus with other specified complication, with long-term current use of insulin ([facility]) USE TO TEST BLOOD SUGAR EVERY 8 HOURS 100 each 11 026 Active glucose blood (FreeStyle Precision Feroz Test) test stripIndication s:Type 2 diabetes mellitus with other specified complication, with long-term current use of insulin ([facility]) Test blood sugar q 8 hours 100 each 12 024 2025 Discontinued(R eorder (will not trigger notification to Pharmacy)) TRUEplus Lancets 33G misc TEST BLOOD SUGAR THREE TIMES DAILY 100 each 11 024 2025 Discontinued Easy Touch Pen [place] 31G X 8 MM misc USE ONCE DAILY WITH LANTUS 100 each 11 02/05/20 25 11:34 AM EST 024 2025 Discontinued insulin lispro (HumaLOG) 200 UNIT/ML solution pen-injector penIndications: Type 2 diabetes mellitus with other specified complication, with long-term current use of insulin ([facility]) Sliding scale, to use insuline with meals 150 to 200 2 units, 201 to 250 3 units, 251 to 300 4 units , > 300 5 units 1 each 2 02/05/20 25 11:34 AM EST 025 2024 Discontinued Diclofenac Sodium (Voltaren) 1 % gel Apply 2 g topically if needed in the morning and at bedtime (muscle pain). 100 g 2 03/26/19 26 4:56 PM EST 025 2025 Discontinued FLUoxetine (PROzac) 10 MG capsule TAKE 1 CAPSULE BY MOUTH EVERY MORNING 90 capsule 025 2025 Discontinued(R eorder (will not trigger notification to Pharmacy)) furosemide (Lasix) 20 MG tabletIndicatio ns:Chronic diastolic (congestive) heart failure (HCC) TAKE 1 TABLET BY MOUTH EVERY MORNING 90 tablet 025 2025 Discontinued(R eorder (will not trigger notification to Pharmacy)) Active Problems Problem Noted Date Diagnosed Date Osteoporosis 02/20/2025 Acute exacerbation of chroni c obstructive pulmonary disease (COPD) ([facility]) 10/10/2024 Eye lesion 08/12/2024 Diabetic retinopathy 08/12/2024 [...] Elevated alkaline phosphatase level 05/22/2023 Rheumatoid arthritis ([facility]) 03/04/2023 Lumbar vertebral fracture ([facility]) 03/04/2023 Assessment & Plan (09/02/2024 2:28 PM [...] episode of recurren t major depressive disorder ([facility]/HCC) 12/21/2022 Overview (12/21/2022): PHQ 9 positive on 12/05/22 Assessment & Plan (12/21/2022 11:15 AM EDT): Pt declines therapy referral Continue aricept for insomnia and behavior Continue Fluoxetine 10 mg daily for depression Continue melatonin 5 mg F/u PRN 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 Reports she was not contacted yet for f/u by TB clinic [facility] Assessment & Plan (12/21/2022 11:17 AM EDT): Provider called [facility] TB during visit requesting status of appt. No answer Also gave family phone number to call [facility] TB directly RTC if cough [...] Last Dental Exam: N, referral sent to [facility] 07/2023 Assessment & Plan (11/05/2023 12:20 PM EDT): Assessment: - NOT at goal of A1c less than 7% or fasting BG between 70-130 mg/dL per ADA guidelines. Plan/ Recommendations: - START using [employer] wilmar 3 today; demonstrated and applied during [...] B12 Moderate chronic obstructive pulmonary disease ( [facility]/HCC) 10/22/2014 Overview (12/05/2022): Cough is worsening Unknown [...] contacted yet for f/u by TB clinic [facility] Provider called [facility] TB during visit requesting status of appt. No answer Also gave family phone number to call [facility] TB directly RTC if cough worsens F/u PRN Assessment & Plan (11/02/2022 6:31 PM EDT): Wheezing noted exam Recommended SANTOS use PRN F/u PRN Obstructive sleep apnea syndrome 10/13/2014 Gastroparesis 12/10/2013 Hyperlipidemia 06/27/2012 Atherosclerosis of coronary artery of [place] tribe heart with other form of angina pectoris, unspecified vessel or lesion type 06/18/2012 Assessment & Plan (12/21/2022 11:13 AM EDT): Refill aspirin for medbox program F/u PRN Diabetic polyneuropathy 06/18/2012 Resolved Problems Problem Noted Date Diagnosed Date Resolved Date Senile purpura 10/10/2024 02/20/2025 Chronic cough 08/17/2023 10/17/2023 Encounters Date Type Department Care Team Description 04/01/2025 Refill [facility] [address] [facility] [place] [address] Pippa Boyle ANP Type 2 diabetes mellitus without complication, with long-term current use of insulin (HCC); Chronic diastolic (congestive) heart failure (HCC); Type 2 diabetes mellitus with other specified complication, with long-term current use of insulin ([facility]) 04/01/2025 Refill [facility] [address] [facility] [address] [place] [address] Hue Meza MD Type 2 diabetes mellitus with other specified complication, with long-term current use of insulin ([facility]); Chronic diastolic (congestive) heart failure (HCC) 03/28/2025 Refill [facility] [address] [facility] [address] Hue Meza MD 03/12/2025 Refill [facility] [address] [facility] [address] Hue Meza MD Type 2 diabetes mellitus with other specified complication, with long-term current use of insulin ([facility]) 02/20/2025 9:45 AM EST Office Visit [facility] [address] [facility] [address] [place] [address] Hue Meza MD Chronic obstructive pulmonary disease, unspecified COPD type (CMS/HCC) ([facility]) (Primary Dx); Type 2 diabetes mellitus without complication, with long-term current use of insulin (HCC); Essential hypertension; Osteoporosis, unspecified osteoporosis type, unspecified pathological fracture presence; Abnormal EKG; Atherosclerosis of coronary artery of [place] tribe heart with other form of angina pectoris, unspecified vessel or lesion type; Health care maintenance; Anemia, unspecified type; Rheumatoid arthritis, involving unspecified site, unspecified whether rheumatoid factor present (CMS/HCC) (HCC); Acute exacerbation of chronic obstructive pulmonary disease (COPD) (CMS/HCC) (HCC); Moderate chronic obstructive pulmonary disease (CMS/HCC) (HCC); Obstructive sleep apnea syndrome 02/20/2025 Results Follow-Up [facility] [address] [facility] [place] [address] Hue Meza MD XR Chest 2 Views 02/20/2025 Travel 02/19/2025 Telephone [facility] [address] [place], [place] [address] Hue Meza MD chartprep 02/19/2025 Orders Only GENERIC EXTERNAL DATA DEPARTMENT Provider, Generic External Data 02/16/2025 Refill [facility] [address] [place] [address] Hue Meza MD 01/21/2025 Refill [facility] [address] [place] [address] Hue Meza MD 01/15/2025 Refill [facility] [address] [place] [address] Hue Meza MD Atherosclerosis of coronary artery of s[place] tribe heart, unspecified vessel or lesion type, unspecified whether angina present 01/12/2025 Orders Only GENERIC EXTERNAL DATA DEPARTMENT Provider, Generic External Data from Last 3 Months Immunizations Immunization Administration [...] Description 04/20/2025 11:30 AM EST Medication Management [facility] [address] [place] [phone] Taylor Chan, BessyD [address] [place] [phone] 06/04/2025 10:15 AM EDT Office Visit [facility] [address] [place] [phone] Hue Meza MD [address] [place] [address] [phone] Health Maintenance Due Date Last Done Comments [...] Help patients manage their type 2 diabetes Britt Carrillo MA Weekly blood pressure task Care Plan Weekly blood pressure task Britt Carrillo MA Help patients manage their type 2 diabetes Care Plan Help patients manage their type 2 diabetes Britt Carrillo MA Patient has diabetic eye disease Care [...] has diabetic neuropathy No Hue Meza MD Weekly blood pressure task Care Plan Weekly blood pressure task No Chery Ascencionifer, CERTIFIED TRAVEL COUNSELOR Weekly blood pressure task Care Plan Weekly blood pressure task No Chery Ascencionifer, CERTIFIED TRAVEL COUNSELOR Weekly blood pressure task Care Plan Weekly blood pressure task No Josey AscencioferJEREMIAHN Weekly blood pressure task Care Plan Weekly blood pressure task No Silva, Lindsey, CERTIFIED TRAVEL COUNSELOR Patient has diabetic eye disease Care Plan Patient has diabetic eye disease No Silva, Lindsey, CERTIFIED TRAVEL COUNSELOR Patient has diabetic eye disease Care Plan Patient has diabetic eye disease No Silva, Lindsey, CERTIFIED TRAVEL COUNSELOR Patient has diabetic eye disease Care Plan Patient has diabetic eye disease No Silva, Lindsey, CERTIFIED TRAVEL COUNSELOR Patient has diabetic eye disease Care Plan Patient has diabetic eye disease No Silva, Lindsey, CERTIFIED TRAVEL COUNSELOR Patient has chronic kidney disease Care Plan Patient has chronic kidney disease No Silva, Lindsey, CERTIFIED TRAVEL COUNSELOR Patient has chronic kidney disease Care Plan Patient has chronic kidney disease No Silva, Lindsey, CERTIFIED TRAVEL COUNSELOR Patient has chronic kidney disease Care Plan Patient has chronic kidney disease No Silva, Lindsey, CERTIFIED TRAVEL COUNSELOR Patient has chronic kidney disease Care Plan Patient has chronic kidney disease No Silva, Lindsey, CERTIFIED TRAVEL COUNSELOR Patient has diabetic neuropathy Care Plan Patient has diabetic neuropathy No Silva, Lindsey, CERTIFIED TRAVEL COUNSELOR Patient has diabetic neuropathy Care Plan Patient has diabetic neuropathy No Silva, Lindsey, CERTIFIED TRAVEL COUNSELOR Patient has diabetic neuropathy Care Plan Patient has diabetic neuropathy No Silva, Lindsey, CERTIFIED TRAVEL COUNSELOR Patient has diabetic neuropathy Care Plan Patient has diabetic neuropathy No Silva, Lindsey, CERTIFIED TRAVEL COUNSELOR Procedures Procedure Name Priority Date/Time Associated Diagnosis Comments ECG 12-LEAD Routine 03/09/2025 8:41 PM EST Essential hypertension AMB REFERRAL TO ENDOCRINOLOGY Routine 02/26/2025 Diabetes mellitus, labile (HCC) CT LUMBAR SPINE WO CONTRAST Routine 02/24/2025 1:15 PM EST XR CHEST 2 VIEWS Routine 02/20/2025 1:03 PM EST Chronic obstructive pulmonary disease, unspecified COPD type ([facility]/HCC) (HCC) POCT GLYCATED HEMOGLOBIN, TOTAL Routine 02/20/2025 9:52 AM EST Type 2 diabetes mellitus without complication, with long-term current use of insulin ([facility]) POCT GLUCOSE (CPT-14173) Routine 02/20/2025 9:51 AM EST Type 2 diabetes mellitus without complication, with long-term current use of insulin ([facility]) GLUCOSE, WHOLE BLOOD Routine 02/19/2025 11:24 AM EST VITAMIN D,25-OH,TOTAL,IA Routine 01/12/2025 11:11 AM EDT COMPREHENSIVE METABOLIC PANEL Routine 01/12/2025 11:11 AM EDT ALBUMIN, RANDOM URINE W/CREATININE Routine 09/02/2024 2:28 PM EDT Health care maintenance HEPATITIS C AB W/REFL TO HCV RNA, QN, PCR Routine 08/29/2024 12:30 PM EDT Health care maintenance LIPID PANEL, STANDARD Routine 08/29/2024 12:30 PM EDT Health care maintenance from Last 3 Months or Most Recently Relevant to Health Maintenance Results * ECG 12 lead (03/09/2025 8:41 PM EST) Narrative Hue Meza MD - 03/09/2025 8:41 PM EST EKG : V4-V5 TWI ,NSR , HR 68x' QTC 402 --> when compared w EKG from 11/2024 I Can see TWI in V5 us Hue Lopez MD ECG ORDERABLES F inal Result * Referral to Endocrinology (02/26/2025) us Hue Lopez MD OUTPATIENT REFERR AL ORDERABLES Final Result * CT Lumbar Spine w/o Contrast (02/24/2025 1:15 PM EST) Anatomical Region Laterality Modality Spine, L-spine Computed Tomogra phy 02/24/2025 1:15 PM EST Narrative 02/24/2025 2:31 PM EST [address] [address] [address] Scan Report Signed Patient: Hue Murphy MR#: [id number] : 1945 Acct:[id number] Age/Sex: 79 / F ADM Date: 02/24/25 Loc: HO.CT Attending Dr: Mima Black MD Ordering Physician: Mima Black MD Date of Service: 02/24/25 Procedure(s): CT lumbar spine wo IV con Accession Number(s): [id number] cc: Mima Black MD; Hue Meza MD Report Number: [id number]: Total DLP = 496.00 mGy-cm Reason for [...] by: Douglas Martínez MD 02/24/2025 02:28 PM [facility] Dictated By: Douglas Roberts MD Signed By: <Electronically signed by Douglas Herrera MD in OV> 02/24/25 1428 DD/ 1315 TD/TT: 02/24/25 1416 Appeals Manager: Procedure Note Donotuseinterpreter, Image - 02/24/[address] [address] [address] Scan Report Signed Patient: Hue Murphy DMR#: [id number] : 1945cct:[id number] Age/Sex: 79 / FADM Date: 02/24/25 Loc: HO.CT Attending Dr: Mima Black MD Ordering Physician: Mima Black MD Date of Service: 02/24/25 Procedure(s): CT lumbar spine wo IV con Accession Number(s): [id number] cc: Mima Black MD; Hue Meza MD Report Number: [id number]: Total DLP = 496.00 mGy-cm Reason for [...] by: Douglas Martínez MD 02/24/2025 02:28 PM [facility] Dictated By: Douglas Roberts MD Signed By: <Electronically signed by Douglas Herrera MDin OV> 02/24/25 1428 DD/ 1315 TD/TT: 02/24/25 1416 Appeals Manager: [facility] External Provider IMG CT PROCEDURES Final Result * XR Chest 2 Views (02/20/2025 1:03 PM EST) Anatomical Region Laterality Modality Chest Radiographic Azul ging 02/20/2025 1:03 PM EST Narrative 02/20/2025 1:29 PM EST [facility] [address] [place] [address] XRay Report Signed Patient: Hue uMrphy MR#: [id number] : 1945 Acct:[id number] Age/Sex: 79 / F ADM Date: 02/20/25 [facility] Dr: Hue Lopez MD Ordering Physician: Hue Meza MD Date of Service: 02/20/25 Procedure(s): XR chest 2V Accession Number(s): [id number] cc: Hue Meza MD Reason for Exam: [...] 02/20/25 1326 DD/ 1303 TD/TT: 02/20/25 1312 Appeals Manager: HERACLIO Procedure Note Donotuseinterpreter, Image - 02/20/2025 [facility] [address] [place] [address] XRay Report Signed Patient: Hue Murphy DMR#: [id number] : 6Acct:[id number] Age/Sex: 79 / FADM Date: 02/20/25 Loc: HO.[facility] Attending Dr: Hue Lopez MD Ordering Physician: Hue Meza MD Date of Service: 02/20/25 Procedure(s): XR chest 2V Accession Number(s): [id number] cc: Hue Meza MD Reason for Exam: [...] 02/20/25 1326 DD/ 1303 TD/TT: 02/20/25 1312 Appeals Manager: HERACLIO Hue Lopez MD IMG XR PROCEDURES Final Result * (ABNORMAL) POCT Hgb A1c (02/20/2025 9:52 AM EST) Hemoglobin A1C 8.6(A) 4.0 - 5.7 % QC Media Lot # [id number] Lot# Expiration Date Blood 02/20/2025 9:52 AM EST Hue Lopez MD POINT OF CARE VELMA T ENTER/EDIT ORDERABLES Final Result * (ABNORMAL) POCT Glucose (02/20/2025 9:51 AM EST) Glucose Blood, POC 207(A) 60 - 200 mg/dL QC Media Lot # [id number] Lot# Expiration Date Blood Capillary blood specimen / Unknown 02/20/2025 9:51 AM EST us Hue Lopez MD POINT OF CARE VELMA T ENTER/EDIT ORDERABLES Final Result * (ABNORMAL) Glucose, Whole Blood (02/19/2025 11:24 AM EST) Glucose, Whole Blood 197(H) 60 - 115 mg/dL [facility] Comment:METER #: [id number] Testing performed in the Endocrinology Department [address] , [address], [facility]. 02/19/2025 11:2 4 AM EST 02/19/2025 11:28 AM EST us Generic External Data Provider LAB BLOOD ORDERAB LES Final Result [facility] [address] [place] [phone] * Vitamin D, 25-Hydroxy, Total, Immunoassay (01/12/2025 11:11 AM EDT) Vitamin D 25-OH Total 64.9 >30 ng/mL [facility] Comment: Health Based Reference Values*< 20 ng/mL [id number] ng/mL Insufficient> 30 ng/mL Sufficient*Tristian PERALTA. N [...] Provider LAB BLOOD ORDERAB LES Final Result [facility] [address] [place] [phone] * (ABNORMAL) Comprehensive Metabolic Panel (01/12/2025 11:11 AM EDT) Sodium 144 135 - 145 mmol/L [facility] Potassium 4.5 3.3 - 5.1 mmol/L [facility] Chloride 108 96 - 108 mmol/L [facility] Carbon Dioxide 31(H) 22 - 29 mmol/L [facility] Anion Gap 10(L) 12 - 20 [facility] Urea Nitrogen (BUN) 14 9 - 16 mg/dL [facility] Creatinine, Serum 1.08 0.5 - 1.4 mg/dL [facility] Estimated Glomerular Filt Rate 49 [facility] Comment:Chronic Kidney Disea se: Estimated GFR < 60 mL/min/1.06e2Moukrx Kidney Disease: Estimated GFR < 15 mL/min/1.73m2 Glucose 124(H) 60 - 115 mg/dL [facility] Calcium 8.9 8.4 - 10.2 mg/dL [facility] Bilirubin, Total 0.4 0.0 - 1.0 mg/dL [facility] Aspartate Amino Transferase 43(H) 5 - 31 U/L [facility] Alanine Aminotransferase 36(H) 0 - 31 U/L [facility] Total Protein 7.4 6.5 - 8.0 g/dL [facility] Albumin Level 4.3 3.5 - 5.0 g/dL [facility] Alkaline Phosphatase 129(H) 39 - 117 U/L [facility] 01/12/2025 11:1 1 AM EDT 01/12/2025 1:14 PM EDT Generic External Data Provider LAB BLOOD ORDERAB LES Final Result Performing Organization Address [facility] Co de Phone Number [facility] [address] [place] [phone] * Albumin, Random Urine W/Creatinine (09/02/2024 2:28 PM EDT) Creatinine, Urine 38.57 mg/dL [facility] Microalbumin Urine 5.0 mg/L [facility] Microalbum Creatinine Ratio Ur 12.9 <30 ug/mg cr [facility] Comment:Albumin/Creatinine R atio Reference Ranges: Normal: < 30 ug/mg creatinine Microalbuminuria: 30 - 300 ug/mg creatinineClinical Albuminuria: > 300 ug/mg creatinine Urine (Urine, Random) 09/02/2024 2:28 PM EDT 09/02/2024 4:05 PM EDT us Hue Lopez MD LAB URINE ORDERAB LES Final Result Performing Organization Address [facility] Co de Phone Number [facility] [address] [place] [phone] * Hepatitis C Antibody with Reflex to HCV, RNA, Quantitative, Real-Time PCR (08/29/2024 12:30 PM EDT) Hepatitis C Antibody Nonreactive Nonreactive [facility] Comment:Antibodies to HCV no t detected; does not exclude early acuteHCV infection. Blood Venous blood specimen / Unknown 08/29/2024 12:30 PM EDT 08/29/2024 1:01 PM EDT us Hue Lopez MD LAB BLOOD ORDERAB LES Final Result Performing Organization Address City/[facility]/ZIP Co de Phone Number [facility] [address] [place] [phone] [phone] * (ABNORMAL) Lipid Panel, Standard (08/29/2024 12:30 PM EDT) Triglycerides 92 <150 mg/dL [facility] Comment:Desirable Triglyceri de: less than 150 mg/dLBorderline High Triglyceride 150-199 mg/dLHigh Triglyceride: 200-499 mg/dLVery High Triglyceride: greater than or equal to 5OO mg/dL Cholesterol 226(H) <200 mg/dL [facility] Comment:Desirable Cholestero l: less than 200 mg/dLBorderline High Cholesterol: 200-239 mg/dLHigh Cholesterol: greater than 239 mg/dL LDL Cholesterol Calculated 78 <100 mg/dL [facility] Comment:Desirable LDL: less than 100 mg/dLNear Optimal/Above Optimal LDL: 110- 129 mg/dLBorderline High LDL: 130-159 mg/dLHigh LDL: 160-189 mg/dLVery High LDL: greater than or equal to 190 mg/dL HDL Cholesterol 130 >40 mg/dL [facility] Comment:Desirable HDL: great er than 40 mg/dL Note: This HDL assay may give artificially low results in patients with liver disease. Blood Venous blood specimen / Unknown 08/29/2024 12:30 PM EDT 08/29/2024 1:01 PM EDT us Hue Lopez MD LAB BLOOD ORDERAB LES Final Result Performing Organization Address City/[facility]/ZIP Co de Phone Number [facility] [address] [place] [address] [phone] from Last 3 Months or Most [...] neuropathy 02/20/2025 Patient has diabetic neuropathy 02/20/2025 Weekly blood pressure task 04/01/2025 Weekly blood pressure task 04/01/2025 Weekly blood pressure task 04/01/2025 Weekly blood pressure task 04/01/2025 Patient has diabetic eye disease 04/01/2025 Patient has diabetic eye disease 04/01/2025 Patient has diabetic eye disease 04/01/2025 Patient has diabetic eye disease 04/01/2025 Patient has chronic kidney disease 04/01/2025 Patient has chronic kidney disease 04/01/2025 Patient has chronic kidney disease 04/01/2025 Patient has chronic kidney disease 04/01/2025 Patient has diabetic neuropathy 04/01/2025 Patient has diabetic neuropathy 04/01/2025 Patient has diabetic neuropathy 04/01/2025 Patient has diabetic neuropathy 04/01/2025 Insurance [facility] OPTIONS (O D-SNP) JESS SORENSEN [id number] Care Teams Entertainer & Comic Relationship Specialty Start Date End Date Hue Meza MD [address] [place], [place] [phone] PCP - General Internal Medicine 12/22/22 Fely Bowens PharmD [address] [place] [address] [phone] Pharmacist Internal Medicine 06/02/24
--- OUTSIDE RECORDS SUMMARY | 2025-04-09 11:36 | XMS_ITS | Encounter Summary ---
Author Organization [employer] Address 75 [facility] 7t [place] [address] Care Team Providers Care Director Of Property Management Name Role Phone Hue Meza MD Primary Care Pro vider Fely Bowens PharmD Unavailable [phone] Reason for Visit * Reason Comments Med Refill Encounter Details Date Type Department Care Team (Late st Contact Info) Description 01/24/2023 Refill [facility] [address] [place], [place] [phone] Hue Meza MD 230 [place], [place] [phone] Closed fracture dislocation of lumbar spine, sequela [...] Description 04/20/2025 11:30 AM EST Medication Management [address] [address] Taylor Chan PharmD [address] [place] [address] 06/04/2025 10:15 AM EDT Office Visit [facility] [address] [place] [address] Hue Meza MD [address] [place] [address] documented as of this encounter Goals Goal [...] documented as of this encounter Care Teams Director Of Property Management Relationship Specialty Start Date End Date Hue Meza MD [address] [place] [address] [phone] PCP - General Internal Medicine 12/22/22 Fely Bowens, Jamie [address] [place] [address] Pharmacist Internal Medicine 06/02/24 documented as of this encounter
--- OUTSIDE RECORDS SUMMARY | 2025-04-09 11:36 | XMS_ITS | Encounter Summary ---
Author Organization [employer] Address 75 [facility] 7t [place] [address] Care Team Providers Care Bindery Supervisor Name Role Phone Cash Arevalo MD Primary Care Provider Debrava Cecy Moralez Primary Care Provider Debra vailaCecy Brown Primary Care Provider Debra vailable Hue Meza MD Primary Care Pro vider Fely Bowens PharmD Unavailable [phone] Reason for Visit * Reason Onset Date Comments transfer pt appt 03/23/2022 Encounter Details Date Type Department Care Team (Late st Contact Info) Description 03/23/2022 Telephone [facility] MEDICINE 230 [place] [address] Cash Arevalo MD transfer pt appt Social [...] Description 04/20/2025 11:30 AM EST Medication Management [facility] [address] [place] [phone] Taylor Chan, BessyD 230 [place] [address] 06/04/2025 10:15 AM EDT Office Visit [facility] [address] [place] [address] Hue Meza MD [address] [place] [address] documented as of this encounter Visit Diagnoses Not on filedocumented in this encounter Care Teams Bindery Supervisor Relationship Specialty Start Date End Date Cash Arevalo MD PCP - General Family Medicine 01/29/19 03/23/22 Cecy Gonzalez FNP PCP - General Family Medicine 03/24/22 08/21/22 Cecy Gonzalez FNP PCP - General Family Medicine 08/22/22 12/21/22 Hue Meza MD [address] [place] [address] [phone] PCP - General Internal Medicine 12/22/22 Fely Bowens PharmD [address] [place] [address] [phone] Pharmacist Internal Medicine 06/02/24 documented as of this encounter
--- OUTSIDE RECORDS SUMMARY | 2025-04-09 11:36 | XMS_ITS | Encounter Summary ---
Author Organization [employer] Address 75 [facility] 7t [place] [address] Care Team Providers Care Manager Division Name Role Phone Hue Meza MD Primary Care Pro vider Fely Bowens PharmD Unavailable [phone] Reason for Visit * Reason Comments Med Refill Encounter Details Date Type Department Care Team (Late st Contact Info) Description 12/06/2023 Refill [facility] MED[facility]INE 230 [place], [place] [phone] Racheal Mcclain, PharmD 230 [place], [place] [phone] Social History Tobacco Use Types Packs/Day Years [...] Description 04/20/2025 11:30 AM EST Medication Management [facility] [address] [place] [phone] Taylor Chan, PharmD [address] [place] [address] 06/04/2025 10:15 AM EDT Office Visit [facility] [address] [place] [address] Hue Meza MD [address] [place] [address] [phone] documented as of this encounter Goals Goal Patient Goal Type Associated Problems Recent Progress Patient-Stated? Author Blood Pressure < 140/90 Blood Pressure 126/62(2024 9:49 AM EST) Boby Connelly Hemoglobin A1c < 8 Result Component 8.6( 9:52 AM EST) Boby Connelly documented as of this encounter Visit Diagnoses Not on filedocumented in this encounter Additional Health Concerns Assessment Noted Time PHQ-9 Depression Total Score: 12 024 11:37 AM EDT documented as of this encounter Care Teams Manager Division Relationship Specialty Start Date End Date Hue Meza MD 230 [place], [place] [phone] PCP - General Internal Medicine 12/22/22 Fely Bowens PharmD 230 [place], [place] [phone] Pharmacist Internal Medicine 06/02/24 documented as of this encounter
--- OUTSIDE RECORDS SUMMARY | 2025-04-09 11:36 | XMS_ITS | Encounter Summary ---
Author Organization [employer] Address 75 [facility] 7t [place] [address] Care Team Providers Care End User Support Specialist Name Role Phone Hue Meza MD Primary Care Pro vider Fely Bowens PharmD Unavailable [phone] Reason for Visit * Reason Comments Med Refill Encounter Details Date Type Department Care Team (Late st Contact Info) Description 12/28/2022 Refill [facility]INE 230 [place] [address] Cecy Gonzalez, AVIS Dementia without behavioral disturbance, [...] Description 04/20/2025 11:30 AM EST Medication Management [facility]INE [address] [place] [address] Taylor Chan, PharmD [address] [place] [address] 06/04/2025 10:15 AM EDT Office Visit [facility] [address] [place] [address] Hue Meza MD [address] [place] [address] [phone] documented as of this encounter Goals Goal [...] documented as of this encounter Care Teams End User Support Specialist Relationship Specialty Start Date End Date Hue Meza MD [address] [place] [phone] PCP - General Internal Medicine 12/22/22 Fely Bowens, Jamie [address] [place] [address] Pharmacist Internal Medicine 06/02/24 documented as of this encounter
--- OUTSIDE RECORDS SUMMARY | 2025-04-09 11:36 | XMS_ITS | Encounter Summary ---
Author Organization [employer] Address 75 [facility] 7t [place] [address] Care Team Providers Care Turret Punch Operator Name Role Phone Cecy Gonzalez PROPERTY MANAGEMENT ASSISTANT Primary Care Provider Debra vailaCecy Brown PROPERTY MANAGEMENT ASSISTANT Primary Care Provider Debra vailable Hue Meza MD Primary Care Pro vider Fely Bowens PharmD Unavailable [phone] Encounter Details Date Type Department Care Team (Late st Contact Info) Description 05/15/2022 Orders Only [facility] MED & PEDS [address] [place] [address] Lindsey Ascencio LPN Social History Tobacco Use [...] 11:30 AM EST Medication Management [facility] MEDICINE [address] [place] [address] [phone] Taylor Chan, PharmD 230 [place] [address] 06/04/2025 10:15 AM EDT Office Visit [facility] MEDICINE 230 [place] [address] Hue Meza MD 230 [place] [address] documented as of this encounter Procedures Procedure Name Priority Date/Time Associated Diagnosis Comments T4, FREE Routine 11/02/2022 2:27 PM EDT documented in this encounter Results * T4, Free (11/02/2022 2:27 PM EDT) Free T4 (Free Thyroxine) 1.72 0.71 - 1.85 ng/dL [facility] 11/02/2022 2:27 PM EDT 11/02/2022 4:03 PM EDT Cecy ALBARRAN LAB BLOOD ORDERABLES Final Result [facility] [address] [place] [address] [phone] documented in this encounter Visit Diagnoses Not on filedocumented in this encounter Care Teams Turret Punch Operator Relationship Specialty Start Date End Date Cecy Gonzalez FNP PCP - General Family Medicine 03/24/22 08/21/22 Cecy Gonzalez FNP PCP - General Family Medicine 08/22/22 12/21/22 Hue Meza MD 230 [place] [address] PCP - General Internal Medicine 12/22/22 Fely Bowens PharmD 230 [place] [address] Pharmacist Internal Medicine 06/02/24 documented as of this encounter
--- OUTSIDE RECORDS SUMMARY | 2025-04-09 11:36 | XMS_ITS | Encounter Summary ---
Author Organization [employer] Address 75 [facility] 7t [place] [address] Care Team Providers Care Landscape Horticulture Instructor Name Role Phone Cash Arevalo MD Primary Care Provider Debrava Cecy Moralez Primary Care Provider Debra vailaCecy Brown Primary Care Provider Debra vailaHue Elias MD Primary Care Pro vider Fely Bowens PharmD Unavailable [phone] Encounter Details Date Type Department Care Team (Late st Contact Info) Description 03/23/2022 Telephone [facility] [address] [place] [address] [phone] Cash Arevalo MD Social History Tobacco Use [...] Description 04/20/2025 11:30 AM EST Medication Management [facility] [address] [place] [phone] Taylor Chan PharmD 230 [place] [address] 06/04/2025 10:15 AM EDT Office Visit [facility] 230 [place] [address] Hue Meza MD 230 [place], [place] [phone] documented as of this encounter Visit Diagnoses Not on filedocumented in this encounter Care Teams Landscape Horticulture Instructor Relationship Specialty Start Date End Date Cash Arevalo MD PCP - General Family Medicine 01/29/19 03/23/22 Cecy Gonzalez FNP PCP - General Family Medicine 03/24/22 08/21/22 Cecy Gonzalez FNP PCP - General Family Medicine 08/22/22 12/21/22 Hue Meza MD [address] [place] [phone] PCP - General Internal Medicine 12/22/22 Fely Bowens PharmD [address] [place] [phone] Pharmacist Internal Medicine 06/02/24 documented as of this encounter
--- OUTSIDE RECORDS SUMMARY | 2025-04-09 11:36 | XMS_ITS | Encounter Summary ---
Author Organization [employer] Address 75 [facility] 7t [place] [address] Care Team Providers Care Teacher Of The Hearing Impaired Name Role Phone Hue Meza MD Primary Care Pro vider Fely Bowens PharmD Unavailable [phone] Reason for Visit * Reason Comments Med Refill Encounter Details Date Type Department Care Team (Late st Contact Info) Description 12/18/[address] [facility] MED & PEDS [address] [place], [place] [phone] Hue Meza MD 230 [place] [address] Neuropathy Social History Tobacco Use Types Packs/Day [...] EST Medication Management [facility] [address] [place] [phone] Taylor Chan, PharmD [address] [place] [address] 06/04/2025 10:15 AM EDT Office Visit [facility] [address] [place] [address] Hue Meza MD [address] [place] [phone] documented as of this encounter Goals Goal [...] Noted Time PHQ-9 Depression Total Score: 10 05/27/2 025 11:07 AM EDT documented as of this encounter Care Teams Teacher Of The Hearing Impaired Relationship Specialty Start Date End Date Hue Meza MD [address] [place] [address] [phone] PCP - General Internal Medicine 12/22/22 Fely Bowens PharmD [address] [place] [address] Pharmacist Internal Medicine 06/02/24 documented as of this encounter
--- OUTSIDE RECORDS SUMMARY | 2025-04-09 11:36 | XMS_ITS | Encounter Summary ---
Author Organization [employer] Address 75 [facility] 7t [place] [address] Care Team Providers Care Sonographer Name Role Phone Cecy Gonzalez [facility] Primary Care Provider Hue Fish MD Primary Care Pro vider Fely Bowens PharmD Unavailable [phone] Reason for Visit * Reason Onset Date Comments Hospital Follow-up 10/26/2022 Encounter Details Date Type Department Care Team (Late st Contact Info) Description 10/26/2022 Telephone [facility] MEDICINE 230 [place] [address] Cecy Gonzalez FNP Hospital Follow-up Social History [...] 12:16 PM EDT Tc from [facility] at [facility] Tc from pt requesting a [facility] appt. Pt was admitted at [facility] on 10/22/22 and discharged on 10/25/22. Pt wasdiagnosed with small fracture on the spine Please call pts granddaughter Irma at [phone] documented in this encounter Plan of Treatment Upcoming Encounters Date Type Department Care Team (Late st Contact Info) Description 04/20/2025 11:30 AM EST Medication Management [address] [address] Taylor Chan PharmD [address] [place] [address] [phone] 06/04/2025 10:15 AM EDT Office Visit [address] [phone] Hue Meza MD [address] [place] [address] [phone] documented as of this encounter Visit Diagnoses Not on filedocumented in this encounter Care Teams Sonographer Relationship Specialty Start Date End Date Cecy Gonzalez FNP PCP - General Family Medicine 08/22/22 12/21/22 Hue Meza MD [address] [place] [address] [phone] PCP - General Internal Medicine 12/22/22 Fely Bowens PharmD [address] [place] [address] [phone] Pharmacist Internal Medicine 06/02/24 documented as of this encounter
--- OUTSIDE RECORDS SUMMARY | 2025-04-09 11:36 | XMS_ITS | Encounter Summary ---
Author Organization [employer] Address 75 [facility] 7t [place] [address] Care Team Providers Care Porter Marina Name Role Phone Hue Meza MD Primary Care Pro vider Fely Bowens PharmD Unavailable [phone] Reason for Visit * Reason Comments Med Refill Encounter Details Date Type Department Care Team (Late st Contact Info) Description 10/10/2024 Refill [facility] MEDICINE 230 [place], [place] [phone] Hue Meza MD 230 [place], [place] [phone] Social History Tobacco Use Types Packs/Day Years [...] 11:30 AM EST Medication Management [facility] MED[facility]INE [address] [place] [phone] Taylor Chan, PharmD [address] [place] [address] 06/04/2025 10:15 AM EDT Office Visit [facility] [address] [place] [phone] Hue Meza MD [address] [place] [phone] documented as of this encounter Goals Goal [...] documented as of this encounter Care Teams Porter Marina Relationship Specialty Start Date End Date Hue Meza MD 230 [place], [place] [phone] PCP - General Internal Medicine 12/22/22 Fely Bowens PharmD 230 [place] [address] Pharmacist Internal Medicine 06/02/24 documented as of this encounter
--- OUTSIDE RECORDS SUMMARY | 2025-04-09 11:36 | XMS_ITS | Encounter Summary ---
Author Organization [facility] Address [address] [place] [address] 7t [place] [address] Care Team Providers Care Corduroy Cutter Operator Name Role Phone Cecy Gonzalez HAND EDGER Primary Care Provider Hue Fish MD Primary Care Pro vider Fely Bowens PharmD Unavailable [phone] Reason for Visit * Reason Comments Med Refill Encounter Details Date Type Department Care Team (Late st Contact Info) Description 12/12/[address] [facility] MEDICINE [address] [place] [address] Cecy Gonzalez FNP Primary hypertension Social History [...] Description 04/20/2025 11:30 AM EST Medication Management [facility] MEDICINE [address] [place] [address] Taylor Chan, PharmD 230 [place] [address] 06/04/2025 10:15 AM EDT Office Visit [facility] MEDICINE [address] [place] [address] Hue Meza MD 230 [place] [address] documented as of this encounter Goals Goal [...] documented as of this encounter Care Teams Corduroy Cutter Operator Relationship Specialty Start Date End Date Cecy Gonzalez FNP PCP - General Family Medicine 08/22/22 12/21/22 Hue Meza MD [address] [place] [address] PCP - General Internal Medicine 12/22/22 Fely Bowens PharmD [address] [place] [phone] Pharmacist Internal Medicine 06/02/24 documented as of this encounter
--- OUTSIDE RECORDS SUMMARY | 2025-04-09 11:36 | XMS_ITS | Encounter Summary ---
Author Organization [employer] Address 75 [facility] 7t [place] [address] Care Team Providers Care Ore Tester Name Role Phone Hue Meza MD Primary Care Pro vider Fely Bowens PharmD Unavailable [phone] Reason for Visit * Reason Comments Med Refill Encounter Details Date Type Department Care Team (Late st Contact Info) Description 06/21/2024 Refill [facility] CH[facility] MED & PEDS [address] [place], [place] [phone] Hue Meza MD 230 [place] [address] Neuropathy Social History Tobacco Use Types Packs/Day [...] Description 04/20/2025 11:30 AM EST Medication Management [facility] MEDICINE [address] [place] [address] Taylor Chan, PharmD [address] [place] [phone] 06/04/2025 10:15 AM EDT Office Visit [facility] MEDICINE [address] [place] [address] Hue Meza MD [address] [place] [address] documented as of this encounter Goals Goal [...] documented as of this encounter Care Teams Ore Tester Relationship Specialty Start Date End Date Hue Meza MD [address] [place] [address] [phone] PCP - General Internal Medicine 12/22/22 Fely Bowens PharmD [address] [place] [phone] Pharmacist Internal Medicine 06/02/24 documented as of this encounter
== END 2025-02-23 00:01 ==
LOC: CF
PROVIDERS: Visit Provider Internal Medicine
DX: S32.000A Wedge compression fracture of unspecified lumbar vertebra, initial encounter for closed fracture (principal); J44.9 Chronic obstructive pulmonary disease, unspecified; J98.4 Other disorders of lung; R05.3 Chronic cough; Z79.899 Other long term (current) drug therapy
CPT/HCPCS: 99212

== ENCOUNTER 2025-02-23 11:13 | Outpatient (AMB) | payer OTHER, SELFPAY ==
[2025-02-23 11:19] VITALS: BP 122/60; PULSE 62; O2SAT 97; BMI 28.9
--- NOTE | 2025-02-23 11:19 | A.OFFVIS_ITS ---
Vital Signs 02/23/25 11:19 Height 4 ft 11 in Weight 143 lb 4.807 oz BMI 28.9 BP 122/60 Blood Pressure Location Lt brachial Position Sitting Pulse 62 Pulse Source Pulse Oximeter Pulse Oximetry (%) 97 Oxygen Delivery Method Room Air Intake Visit Reasons: COPD Intake Note: pt is here for clarification of inhalers. Funeral Pre Need Consultant Required: Yes Funeral Pre Need Consultant Services: Funeral Pre Need Consultant Present Allergies losartan Adverse Reaction (Mild, Verified 02/23/25 11:53) Cough Medication List - Last Reconciled 02/23/25 by Glen Melendez MD albuterol sulfate 90 mcg/actuation (Ventolin HFA) 2 puffs inhalation Q4-6H PRN 30 days amlodipine 5 mg PO DAILY aspirin 81 mg PO BEDTIME atorvastatin 40 mg PO BEDTIME blood sugar diagnostic As directed blood-glucose sensor (Geomagicyle Wilmar 3 Sensor device) As directed calcium carbonate-vitamin D3 600 mg-20 mcg (800 unit) 600 tabs PO DAILY carvedilol 3.125 mg PO BID cyanocobalamin (vitamin B-12) 1,000 mcg PO DAILY cyanocobalamin (vitamin B-12) 1,000 mcg PO DAILY donepezil 10 mg PO DAILY 90 days famotidine 20 mg PO DAILY fluoxetine 10 mg PO DAILY fluticasone propionate 50 mcg/actuation 2 sprays intranasal DAILY jgkvyqlglwt-jxxyhffkr-axkozinx 200-62.5-25 mcg (Trelegy Ellipta) 1 ea inhalation DAILY folic acid 1 mg PO DAILY furosemide 20 mg PO DAILY gabapentin 300 mg PO BEDTIME insulin glargine (Lantus Solostar U-100 Insulin) 100 units subcut DAILY lancets As directed melatonin 5 mg PO BEDTIME PRN methimazole 10 mg PO BID methotrexate sodium 15 mg (6 x 2.5 mg) PO QWEEK 90 days pantoprazole 40 mg PO QAM pen needle, diabetic As directed pyridoxine (vitamin B6) 50 mg PO DAILY 30 days sennosides (Natural Senna Laxative) 8.6 mg PO BEDTIME sitagliptin phosphate (Januvia) 50 mg PO DAILY tocilizumab-aazg (Tyenne Autoinjector) 162 mg (0.9 mL) subcut Q2W Do you need a note to return to daycare/school/sports/work: No HPI HPI COPD: Details: This 79 years old female , is a case of chronic obstructive pulmonary disease as well as moderate lease severe restrictive pulmonary disease. Restrictive disorder is secondary to her previous CABG surgery and a long mid sternal scar. She also has comorbid conditions including coronary artery disease,, previous history of CVA, chronic dysarthria, hypertension, diabetes mellitus, rheumatoid arthritis, depression , Graves disease, Alzheimer dementia, in She has been under my care for pulmonary issues for many years but since September of this year, she has been going to [facility]. In November of this year she was admitted at [facility] for treatment of acute exacerbation of COPD, and post discharge follow-up was on 12/15/2024. Patient is inhalers have been changed to TRELEGY ELLIPTA 1 INHALATION DAILY , AND ALBUTEROL HFA 2 PUFFS Q.6 HOURS PRN, BUT SHE ALSO HAS A NEBULIZER AT HOME AND IS SUPPOSED TO USE ALBUTEROL SOLUTION Q.6 HOURS PRN. She say is that she is not using the albuterol. She was seen by her primary care physician last week, with increased respiratory symptoms. She was treated with prednisone 20 mg b.i.d. for 5 days and course of azithromycin. As per her PCP, she was given an appointment to come and see me on an urgent basis to clarify about her pulmonary regimen. Patient comes today with her granddaughter, who is not the one who usually comes in the past. When I , asked Luisana she claims that she is feeling better, and and cough as well as shortness of breath at baseline. Her granddaughter feels that she is not doing well. She also told me that she has appointment with her gamb cutter at [facility] early next week. [facility] Medical History Uncontrolled type 2 diabetes mellitus with hyperglycemia Osteoporosis Insomnia Gout Osteoarthritis of acromioclavicular joints, bilateral Latent tuberculosis Restrictive lung disease CAD (coronary artery disease) Asthma Allergic rhinitis COPD exacerbation COPD (chronic obstructive pulmonary disease) Cough Hypertension Diabetes Surgical History History of hysterectomy Hx of CABG Family History Mother Acute arthritis Social History Household Members: Family Housing: Apartment Do you presently have visiting nurse or other home services: Yes ([facility] and [employer]) Alcohol intake: never Patient Tobacco Use Status: Never used Tobacco e-Cigarette/Vaping Use: Never Used Second Hand Smoke Exposure: No service: No Current occupational status: unemployed Review of Systems Const All systems reviewed & are unremarkable except as noted in HPI and below Eyes Reports no additional complaints ENT Reports nasal congestion (Mild off and) Card Denies chest pain and Reports dyspnea on exertion Resp Reports as per HPI and Reports dyspnea on exertion GI Reports no additional complaints Reports no additional complaints Musc Reports back pain Skin/Breast Reports system reviewed and no additional complaints, except as documented Neuro Reports no additional complaints Psych Reports anxiety Endo Reports no additional complaints Uche/Lymph Reports no additional complaints Physical Exam Vital Signs: Last Vital Signs Pulse 62 02/23/25 11:19 BP 122/60 02/23/25 11:19 Pulse Ox 97 02/23/25 11:19 Oxygen Delivery Method Room Air 02/23/25 11:19 BMI result Body Mass Index 28.9 Const General: comfortable (But short of breath during conversation), no acute distress, alert and awake Orientation/consciousness: patient oriented x3 HEENT Head: Yes normal to inspection General nose exam: No nasal polyps present and No nasal discharge present Face and sinus: Yes sinuses nontender Mouth: oropharynx normal Throat: Yes posterior oropharynx normal Eyes General: appearance normal, both eyes and all related structures Neck Neck: Yes normal visual inspection, Yes no lymphadenopathy, Yes trachea midline and Yes no JVD Thyroid: Thyroid normal Chest Chest palpation & inspection: abnormal inspection of the chest (Midline sternal scar from previous cardiac surgery), normal palpation of entire chest wall and no tenderness Resp Other: Percussion note is resonant, breath sounds are distant with prolonged, expiratory phase No active wheezes or crepitations are heard today. She is not able to take deeper breaths as she starts having cough. Cardio Palpation: normal PMI Rate: regular rate Rhythm: regular rhythm Heart sounds: no gallops and no murmurs GI Palpation (GI): Soft to palpation, nontender, No hepatosplenomegaly present and no masses Auscultation: normal bowel sounds Back/Spine/Pelvis Thoracic/Lumbar Spine: thoracic and lumbar spine normal to inspection Skin General skin exam: no rashes or lesions noted Neuro General: patient oriented x3 and no focal motor deficits Cranial nerves: Yes CN's II-XII intact bilaterally Extrem General: Yes normal to inspection, Yes no clubbing, cyanosis or edema and Yes no calf tenderness Psych Appearance: grossly normal Speech and movement: Normal speech and movement present Affect: Anxious affect present Assessment & Plan Assessment & Plan (1) COPD (chronic obstructive pulmonary disease): Comment: This patient has long-standing history of chronic obstructive pulmonary disease. She appears to be fairly stable at this time. Pulmonary function test in 2021 showed mostly restrictive pulmonary disorder. But the obstructive component cannot be ruled out. Recently patient has been hospitalized at [facility], treated for acute exacerbation of COPD, And then has been followed up by [facility] gamb cutter. For her convenience, the inhalers have been changed. SHE IS CURRENTLY USING TRELEGY ELLIPTA 1 INHALATION DAILY. AND ALBUTEROL IN THE NEBULIZER OR ALBUTEROL HFA Q 6 HOURS P.R.N.. IN THE PAST SHE HAS BEEN ON FLUTICASONE-SALMETEROL 250-51 INHALATION B.I.D., INCRUSE ELLIPTA 1 INHALATION DAILY, AND ALBUTEROL P.R.N. SINCE LAST WEEK SHE HAS BEEN TREATED WITH A COURSE OF AZITHROMYCIN AND PREDNISONE FOR AN ACUTE EXACERBATION. TODAY I THINK SHE IS AT HER BASELINE. I THINK HER GRANDDAUGHTERS HAVE EXPECTATION THAT SHE SHOULD GET BETTER, BUT KNOWING HER FOR MANY YEARS I THINK SHE IS GOING TO CONTINUE TO HAVE BOUTS OF COUGH AND SHORTNESS OF BREATH ON MINIMAL EXERTION. Code(s): J44.9 - Chronic obstructive pulmonary disease, unspecified Category: Medical Plan: I EXPLAINED TO THE PATIENT THROUGH THE MACHINIST OUTSIDE AND ALSO TO THE GRANDDAUGHTER THAT SHE IS AT HER BASELINE AT THIS TIME. I CLARIFIED THAT SHE SHOULD CONTINUE USING TRELEGY ELLIPTA 1 INHALATION DAILY, AND ALBUTEROL HFA 2 PUFFS Q 6 HOURS PRN/ OR ALBUTEROL SOLUTION IN THE NEBULIZER P.R.N. *I CLARIFIED THAT WHILE SHE IS USING TRELEGY SHE SHOULD NOT USE FLUTICASONE- SALMETEROL INHALER OR INCRUSE ELLIPTA . ALSO EXPLAINED THAT IF SHE HAS FOLLOW- UP APPOINTMENT AT [facility] FOR HER PULMONARY ISSUES, SHE REALLY DOES NOT NEED TO COME TO SEE ME, BECAUSE THAT IS A DUPLICATION. LUISANA SAID SHE WILL LIKE TO COME HERE FOR FOLLOW-UP, BUT HER GRANDDAUGHTER INSISTS THAT SHE SHOULD BE FOLLOWED UP AT [facility]. (2) Restrictive lung disease: Comment: This patient has had previous chest surgery, has a long mid sternal scar. Pulmonary function test has shown moderately severe restrictive pulmonary disorder. This is mainly the reason for her shortness of breath on exertion. Code(s): J98.4 - Other disorders of lung Category: Medical Plan: THIS IS NOT GOING TO CHANGE BUT SHE IS ENCOURAGED TO DO DEEP BREATHING EXERCISES 2 OR 3 TIMES A DAY. (3) Cough: Comment: Cough is secondary to her chronic restrictive and obstructive pulmonary disease, and reactive airways. The cough seems to be at her baseline . Code(s): R05 - Cough Category: Medical Plan: Explained to the patient and her granddaughter that the cough, is chronic , not expected, to clear completely and she can continue to use symptomatic treatment. Coding Level of Care Code Est Pt Level 3 (23326) Diagnoses COPD (chronic obstructive pulmonary disease) J44.9 Restrictive lung disease J98.4 Cough R05
== END 2025-02-23 11:46 | disposition home or self-care (01) ==
LOC: HO.HPS 11:14
PROVIDERS: PCP Student in an Organized Health Care Education/Training Program; Visit Provider Internal Medicine
DX: J44.9 Chronic obstructive pulmonary disease, unspecified (principal); J98.4 Other disorders of lung; R05.9 Cough, unspecified
CPT/HCPCS: 99213

== ENCOUNTER 2025-02-24 13:08 | Outpatient (REF) | payer OTHER, SELFPAY ==
--- OUTSIDE RECORDS SUMMARY | 2025-02-20 09:45 | XMS_ITS | Encounter Summary ---
Author Organization [employer] Address [address] [facility] [facility] [address] [place] [address] Care Team Providers Care Bulb Assembler Name Role Phone Hue Meza MD Primary Care Pro vider Fely Bowens PharmD Unavailable [phone] Encounter Details Date Type Department Care Team (Late st Contact Info) Description 02/20/2025 9:45 AM EST Office Visit [facility] [address] [place], [place] [phone] Hue Meza MD [address] [place], [place] [id number] Chronic obstructive pulmonary disease, unspecified COPD type (CMS/HCC) ([facility]) (Primary Dx); Type 2 diabetes mellitus without complication, with long-term current use of insulin ([facility]); Essential hypertension; Osteoporosis, unspecified osteoporosis type, unspecified pathological fracture presence; Abnormal EKG; Atherosclerosis of coronary artery of lummi heart with other form of angina pectoris, unspecified vessel or lesion type; Health care maintenance; Anemia, unspecified type; Rheumatoid arthritis, involving unspecified site, unspecified whether rheumatoid factor present (CMS/HCC) (HCC); Acute exacerbation of chronic obstructive pulmonary disease (COPD) (CMS/HCC) (HCC); Moderate chronic obstructive pulmonary disease (CMS/HCC) ([facility]); Obstructive sleep apnea syndrome Social History Tobacco Use Types Packs/Day Years [...] AM EDT documented as of this encounter Last Filed Vital Signs Vital Sign Reading Time Taken Comments Blood Pressure 126/62 02/20/2025 9:49 AM EST Pulse 76 02/20/2025 9:49 AM EST Temperature 36.2 C (97.1 F) 02/20/2025 9:49 AM EST Respiratory Rate 20 02/20/2025 9:49 AM EST Oxygen Saturation 99% 02/20/2025 9:49 AM EST Inhaled Oxygen Concentration - - Weight 64.4 kg (142 lb) 02/20/2025 9:49 AM EST Height 152.4 cm (5') 02/20/2025 9:49 AM EST Body Mass Index 27.73 02/20/2025 9:49 AM EST documented in this encounter Progress Notes * Hue Lopez MD - 02/20/2025 9:45 AM EST Subjective Patient ID: Hue Borjas is a 79 y.o. female who presents for f up apt .Comes toapt w Grandchild HPI [employer],CUSTOMER SUPPORT AGENT[facility] e 6 mo , RW ,wheelchair for imbalance CDTM for hypertension 79 yo F with PMX of Alzheimer dementia,Grave's dx, hx of CVA - dysarthria,HLD,DM2, CAD s/p CABG ,CHF, HTN,COPD/restrictive lung disease,JAYY, hx of RA ,LTBI s/p tx ,depression,urinary incontinence,gastroparesis,Hx back fracture -L2 fx .Osteoporosis Comes for f up apt Reports > 1 week of more freq cough ,dry ,no fever no chills, more fatigue with breathing,wheezing ,denies CP currently but states 7 days ago had pressure substernal pain that last for 2 days , did not look for medical attention at the time Pt seems very confused with her inhalers ,so in our med list pt is on Trelegy ,denies having albuterol at home From pulp grinder feeder last apt in 09/2024 pt has listed Advair and Incruse ellipta ,then pharmacy confirms pt getting from pharmacy is Trelegy. Pt does brings to apt today Bridget? . Initially states donthave Trelegy at home but later states she is using it. Assessment and Plan: Health care maintenance -Annual exam done 07/2024 -menopause: 27 Y of age ?? -pap smear: last at her 60s -stopped w normal testing per pt -MM 05/2023 BI-RADS 1 - Negative -wants to stop screening -colonoscopy: > 5 y ago neg per pt -no records available---per [facility] has apt for 11/2024 ?? -will check w pt at next apt if was seen by GI for it -DEXA 11/27/24 by hardwood sawyer: Osteoporosis. -vaccines: Hep B x3 , COVID 19 -last booster 12/2023 ,P20 01/2023, Tdap 01/2023 ,Shingrix vaccine X2, RSV 12/2023 ,Flu vaccine in 12/2024 -advised for COVID 19 vaccine at pharmacy for next week when feeling better Alzheimer dementia -CT head 2018 There is mild patchy low attenuation change in the periventricular white matter spaces, commonly associated with chronic microangiopathy.There is mild bilateral ethmoid sinusitis -03/2023 TSH ,T4 wnl , vit B 12 > 2000 -08/2024 vit B 1.017 -Vit B12 3 times a week --repeat vit B12 level at annual exam -f w neurologist -seen 09/2024 to in 6 mo per gabrielacharly -continue donepezil -pt reports poor apettite chronically -gets Glucerna -covered by insurance [employer] dx -08/29/2024 TSH ,T4 wnl -Saw Senior Project Manager 07/2024 no changes and to f in 2 mo to monitor thyroid -takes methimazole 10 mg hx of CVA-dysarthria hx of CVA -CT head 2018 There is mild patchy low attenuation change in the periventricular white matter spaces, commonly associated with chronic microangiopathy.There is mild bilateral ethmoid sinusitis -f w neurologist -continue ASA,statins DM2 w neuropathy ,retinopathy,macular edema,HLD Today capillary hb1AC 8.6, CBG 207 -08/29/2024 Hb1AC 9.4 , LDL 78, total ch 226 , microalb neg DM likely uncontrolled in setting of steroids use -saw finisher accordion 06/2024, mild non proliferative retinopathy, diabetic macular,edema, 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, homonomous hemianopsia , To f in1 y w opthalmologist and w glucoma sp in 4 mo -dude wrangler--seen 03/2023--advised to scheduled f up apt -normal skin of feet 07/2024 -atorvastatin 40 mg daily -empagliflozin-linagliptin (Glyxambi) 10-5 MG -continue lantus 22 u -Lispro SS BID -eats twice a day w meals ( explained to use SS : Glucose from 150 to 200- 2 units, 201 to 250 -3 units, 251 to 300 -4 units , > 300 -5 units ( discussed to call clinic if having hypoglycemia events) -saw Endo 02/19/25 Plan is to have the patient's self monitor and to talk to the patient about going on a sensor namely Wilmar 3+ no plan for med changes then because pt was not checking Glucose consistently -advised pt and Grandchild to follow w Endo for uncontrolled DM2 CAD s/p CABG -TTE 2017 The visually estimated ejection fraction is between 55-60%. -EKG 2019 Normal sinus rhythm.Left ventricular hypertrophy with repolarization abnormality.AbnormalECG -stress test 2019: Nondiagnostic , EKG for ischemia -ASA,BB,statins -EKG today V4-V5 TWI ,NSR , HR 68x' QTC 402 --> when compared w EKG from 11/2024 I Can see TWI inV5 -called today Dr Ortega at [phone] and request a call back to discuss BB in setting of uncontrol COPD, also in regards amlodipine w verapamil plan and in regards abnormal EKG from today ---- Addendum Received a call back from cancer registry manager 'office Was told they reviewed today EKG done today here w their most recent one and they can not new findings from baseline Also they stated per them ok to use amlodipine and verapamil - I explained that given concern w using same family of med and polypharmacy I did removed amlodipine today . Pt has apt w cards on 03/04/2025 and and advised pt to take daily BP readings to apt ,if BP elevated they can increase verapamil Also request cancer registry manager staff to talk w Dr Ortega about carvedilol if consider definitely needto continue given uncontrolled COPD I called pt today and informed my conversation w cards ,reinforce about alarm signs and symptoms and to go to coming cards apt CHF ? -TTE 2018 The visually estimated ejection fraction is between 55-60%. 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, homonomous hemianopsia , To f in1 y w opthalmologist and w glucoma sp in 4 mo -01/2024 microalb neg -stopped losartan for cough --w improvement of symptoms -from Cards note in 01/2025 per report having PAC and PVCs 2-6% burden so was started on verapamil 120 mg and f w cards 1 month --confirm w pharmacy they never start verapamil given cards never clarify to them about amlodipine -I am stopping amlodipine today and spoke w [employer] to start instead verapamil that was started for PVCs and no for BP control -continue carvedilol for now given relevant CAD history -left message to cards office to f w pt at upcoming apt in regards BB to discuss if can be dc in setting of COPD , it is not as problematic as in asthma but given w ongoing COPD exacerbations will need to further evaluation -Advised to bring home BP readings at next apt-states all < 140/90 -CDTM 04/2025 JAYY -from sleep med pt w severe JAYY and needs to start CPAP --- gave today information to pt's GC to call and check status pf CPAP machine w Sleep med office hx of RA Bl shoulder pain + RF and CCP -previously on sulfasalazine -BL shoulder XR 03/2023 :[id number] degenerative changes bilateral acromioclavicular joints.Soft tissue calcifications adjacent to the bilateral humeral heads and acromion, right greater thanleft. -from [facility] sawyer last seen 01/2025 -Started on methotrexate and folic acid , tocilizumab -referred to PT for bl shoulder pain/OA- --refuse -diclofenac gel and lidoder patched -pt states used in the past marijuana topical cream that helped -ok to try LTBI s/p tx S/p tx by ID w INH 300 mg day x 6 months started tx in 2022-completed tx per ID note Depression PHQ9:10, RUI 7 ,no insomnia, no hallucinations , no tereza -refuse BH -advised for acupuncture trial -referred for chronic pain Group ---follows already -fluoxetine 10 mg daily urinary incontinence -wears diapers Gastroparesis/chronic diarrhea-abd discomfort -hx of gastroparesis w abnormal gastric emptying study -07/31/23 H pylori Neg -Fl bariumd swallow 09/2023 Mild cricopharyngeal achalasia ,mild esophageal dismotility,small type Ihiatal hernia,possible ulcers in stomach rec for EGD.small to mod size diverticulum in dudodenum -GI 10/29/23 [place] start pantoprazole in the morning and famotidine at bedtime. Plan for EGD Hx back fracture -L2 fx Osteoporosis -DEXA 11/27/24 by hardwood sawyer: Osteoporosis. -DEXA scan 04/2022 osteopenia, -2.1 w high FRAX score( major osteoporotic fx 12.8% and hip fx 3.9% -XR lumbar spine 08/2024 Age-indeterminate L2 vertebral body compression fracture with moderate lossof height, acute versus chronic. -12/2024 vit D wnl -ca/vit 600/20 BID -pt on Prolia e 6 mo by hardwood sawyer -referred by her hardwood sawyer for CT scan of lumbar spine planned for next month to eval fracture?? -will check w pt at next apt -continue lidoderm patch -continue gabapentin 300 mg daily Transaminitis Elevated Alk phos -Biliary Dyskinesia Epigastric abd pain ---cholelithiasis -12/2024 AST 43,ALT 36 .alk phos 129 -08/29/2024 ALT 38, AST 26 ,alk phos 121<-- 92 GGT 50<--89 -01/2024 AST 62,ALT 69, GGT 89,alk phos wnl -07/31/2023 chem: AST 32<---36,ALT 28<--42 Alk phos 119 -03/2023 AST 36<---32 . ALT 42 ,alk phos 151 <---118 ,alk phos bone wnl -US abdomen complete 12/12/23 Cholelithiasis without evidence of cholecystitis. -NM hepatobiliary 03/2024 :Dyskinetic gallbladder with the gallbladder ejection fraction of 11% at 30 minutes. Normal hepatic uptake. Patent cystic duct and patent CBD. -GI seen 04/2024 will continue taking pantoprazole and famotidine at bedtime.sennosides (Natural Senna Laxative) 8.6 mg -saw Surgeon 04/2024 for abn HIDA scan evaluation. suggestive of biliary dyskinesia and may indicatea benefit with cholecystectomy. patient is not interested in surgery due to her multiple medical problems which is certainly reasonable. No surgical intervention is recommended at this time. She should follow up as needed. -monitor chem in 3 mo,if worsening Alk phos and LFTs will repeat liver image Leukocytosis, anemia , eosinophilia -08/29/2024 WBC 14.5 ( while on steroids) , hb 12.4,platelets wnl, -01/2024 strongy serology is neg,folic acid,iron and ferritin wnl -07/31/23 Hb 11.5 <--12, wbc 10.9 <---11 ,AEC 900 -Saw director search 05/2024 for leukocytosis,anemia,eosinophilia pt to return in a couple of months for a follow-up visit. For f up -Follows w Dr Mason's office --has apt w hem 04/2025 -will eval if can stop famotidine at next apt as this may cause eosinophilia -will do in 3 mo CBC w diff Senile purpura Noted in her arms-explained pt from vascular fragility Benign condition COPD/restrictive lung disease -CT chest w/wo contrast 2019 Mild centrilobular emphysematous changes of lungs. No infiltrate.No interstitial lung disease. There is no bronchiectasis Lungs chronic rales on exam -PFT 10/2021 : mod to severe restrictive dx w no bronchodilator response -XR chest 07/2024 No active pulmonary disease. -Saw pulm 09/2024 She will continue Incruse Ellipta once a day and restart on Advair with the doze reduced to 250-51 inhalation b.i.d. to f in 6 mo -continue for now Trelegy daily and refilled today albuterol pump and Duoneb NBZ until clarifies w pulp grinder feeder at upcoming apt COPD exacerbation Reports > 1 week of more freq cough ,dry ,no fever no chills, more fatigue with breathing,wheezing ,denies CP currently but states 7 days ago had pressure substernal pain that last for 2 days , did not look for medical attention at the time Pt seems very confused with her inhalers ,so in our med list pt is on Trelegy ,denies having albuterol at home From pulp grinder feeder last apt in 09/2024 pt has listed Advair and Incruse ellipta ,then pharmacy confirms pt getting from pharmacy is Trelegy. Pt does brings to apt today Wixela? . Initially states donthave Trelegy at home but later states she is using it. I called today Her pulp grinder feeder- Dr Melendez's office [place] and informed my concern with ongoing uncontrol COPD and non clarity on which inhalers she is using or planned to use. Was able to get an apt for pt in 3 days for 02/23/2025 for f up and advised pt to bring to apt all her inhalers so she can clarify which one to use and to request refills to provider. Also discuss with medical staff to discuss w pulp grinder feeder to evaluation possibility for biologicals -pt has eosinophilia last AEC 500 <-- 900 , may qualify for this but she has RA on treatment and unsure if this can avoid pt getting other options for treatment. HR 68 Osat 98-100% On exam Bl expiratory wheezing -chest x-ray ordered today -Duoneb x1 in office-improved symptoms after NBZ -prednisone 40 mg x 5 days -continue for now Trelegy daily and refilled today albuterol pump and Duoneb NBZ -advised Grandchild to go to apt w Pulm in 3 days or 02/23/2025 and take all inh to calrify plan anddiscussed for biologicals option? -pt to f w Dr Ortega about BB use -I called office and discussed w staff -pt to f w [id number]/17/2025 -Grandchild is not happy w current pulm care w [place] [facility] and request referral to [facility] --referral done today before---gave [facility] # in case planning to do change -alarm signs and symptoms discussed today in case needs to go to ED if ongoing SOB or again CP Review of Systems -SOB ,wheezing Objective BP 126/62 (BP Location: Right arm, Patient Position: Sitting, BP Cuff Size: Adult) Pulse 76 Temp 97.1 ??F (36.2 ??C) (Temporal) Resp 20 Ht 5' (1.524 m) Wt 142 lb (64.4 kg) SpO2 99% BMI 27.73 kg/m?? Rechecked HR 68 Osat 98-100% Physical Exam Constitutional: General: She is not in acute distress. Appearance: Normal appearance. HENT: Head: Normocephalic. Mouth/Throat: Mouth: Mucous membranes are moist. Eyes: Pupils: Pupils are equal, round, and reactive to light. Cardiovascular: Rate and Rhythm: Normal rate and regular rhythm. Pulmonary: Effort: Pulmonary effort is normal. Breath sounds: Wheezing present. Comments: On exam Bl expiratory wheezing Abdominal: Palpations: Abdomen is soft. Musculoskeletal: Cervical back: Neck supple. Right lower leg: No edema. Left lower leg: No edema. Neurological: Mental Status: She is alert. Assessment/Plan Problem List Items Addressed This Visit Atherosclerosis of coronary artery of lummi heart with other form of angina pectoris, unspecified vessel or lesion type Relevant Medications carvedilol (Coreg) 3.125 MG tablet verapamil SR (Calan SR) 120 MG ER tablet Essential hypertension Relevant Medications carvedilol (Coreg) 3.125 MG tablet verapamil SR (Calan SR) 120 MG ER tablet Moderate chronic obstructive pulmonary disease ([facility]) ([facility]) Relevant Medications albuterol (Ventolin HFA) 108 (90 Base) MCG/ACT inhaler ipratropium-albuterol (Duo-Neb) 0.5-2.5 mg/3 mL nebulizer solution predniSONE (Deltasone) 20 MG tablet ipratropium-albuterol (Duo-Neb) 0.5-2.5 mg/3 mL nebulizer solution 3 mL (Completed) Obstructive sleep apnea syndrome Type 2 diabetes mellitus ([facility]) Relevant Orders POCT Glucose (Completed) POCT Hgb A1c (Completed) Rheumatoid arthritis ([facility]) ([facility]) Relevant Medications predniSONE (Deltasone) 20 MG tablet Health care maintenance Abnormal EKG Relevant Medications carvedilol (Coreg) 3.125 MG tablet verapamil SR (Calan SR) 120 MG ER tablet Anemia Relevant Medications predniSONE (Deltasone) 20 MG tablet Acute exacerbation of chronic obstructive pulmonary disease (COPD) ([facility]) ([facility]) Relevant Medications albuterol (Ventolin HFA) 108 (90 Base) MCG/ACT inhaler ipratropium-albuterol (Duo-Neb) 0.5-2.5 mg/3 mL nebulizer solution predniSONE (Deltasone) 20 MG tablet ipratropium-albuterol (Duo-Neb) 0.5-2.5 mg/3 mL nebulizer solution 3 mL (Completed) Osteoporosis Relevant Medications predniSONE (Deltasone) 20 MG tablet Other Visit Diagnoses Chronic obstructive pulmonary disease, unspecified COPD type ([facility]) ([facility]) - Primary Relevant Medications albuterol (Ventolin HFA) 108 (90 Base) MCG/ACT inhaler ipratropium-albuterol (Duo-Neb) 0.5-2.5 mg/3 mL nebulizer solution predniSONE (Deltasone) 20 MG tablet ipratropium-albuterol (Duo-Neb) 0.5-2.5 mg/3 mL nebulizer solution 3 mL (Completed) Other Relevant Orders XR Chest 2 Views (Completed) documented in this encounter Plan of Treatment Upcoming Encounters Date Type Department Care Team (Late st Contact Info) Description 04/20/2025 11:30 AM EST Medication Management [facility] [address] [place] [address] Taylor Chan, PharmD [address] [place] [address] documented as of this encounter Goals Goal Patient Goal Type Associated Problems Recent Progress Patient-Stated? Author Blood Pressure < 140/90 Blood Pressure 126/62(2024 9:49 AM EST) Boby Connelly Hemoglobin A1c < 8 Result Component 8.6( 9:52 AM EST) Boby Connelly Help patients manage their type 2 diabetes Care Plan Help patients manage their type 2 diabetes No Britt Varghese MA Weekly blood pressure task Care Plan Weekly blood pressure task No Britt Varghese [place] Help patients manage their type 2 diabetes Care Plan Help patients manage their type 2 diabetes No Britt Varghese [place] Patient has diabetic eye disease Care Plan Patient has diabetic eye disease No Britt Varghese [place] Help patients manage their type 2 diabetes Care Plan Help patients manage their type 2 diabetes No Britt Varghese [place] Patient has chronic kidney disease Care Plan Patient has chronic kidney disease No Britt Varghese [place] Help patients manage their type 2 diabetes Care Plan Help patients manage their type 2 diabetes No Britt Varghese [place] Patient has diabetic neuropathy Care Plan Patient has diabetic neuropathy No Britt Varghese [place] Weekly blood pressure task Care Plan Weekly blood pressure task No Britt Varghese MA Weekly blood pressure task Care Plan Weekly blood pressure task No Britt Varghese MA Weekly blood pressure task Care Plan Weekly blood pressure task No Britt Varghese [place] Patient has diabetic eye disease Care Plan Patient has diabetic eye disease No Britt Varghese [place] Patient has diabetic eye disease Care Plan Patient has diabetic eye disease No Britt Varghese [place] Patient has diabetic eye disease Care Plan Patient has diabetic eye disease No Britt Varghese [place] Patient has chronic kidney disease Care Plan Patient has chronic kidney disease No Britt Varghese [place] Patient has chronic kidney disease Care Plan Patient has chronic kidney disease No Britt Varghese [place] Patient has chronic kidney disease Care Plan Patient has chronic kidney disease No Britt Varghese [place] Patient has diabetic neuropathy Care Plan Patient has diabetic neuropathy No Britt Varghese [place] Patient has diabetic neuropathy Care Plan Patient has diabetic neuropathy No Britt Varghese [place] Patient has diabetic neuropathy Care Plan Patient has diabetic neuropathy No Britt Varghese [place] Weekly blood pressure task Care Plan Weekly blood pressure task No Britt Varghese MA Weekly blood pressure task Care Plan Weekly blood pressure task No Britt Varghese MA Weekly blood pressure task Care Plan Weekly blood pressure task No Britt Varghese MA Weekly blood pressure task Care Plan Weekly blood pressure task No Britt Varghese [place] Patient has diabetic eye disease Care Plan Patient has diabetic eye disease No Britt Varghese [place] Patient has diabetic eye disease Care Plan Patient has diabetic eye disease No Britt Varghese [place] Patient has diabetic eye disease Care Plan Patient has diabetic eye disease No Britt Varghese [place] Patient has diabetic eye disease Care Plan Patient has diabetic eye disease No Britt Varghese [place] Patient has chronic kidney disease Care Plan Patient has chronic kidney disease No Britt Varghese [place] Patient has chronic kidney disease Care Plan Patient has chronic kidney disease No Britt Varghese [place] Patient has chronic kidney disease Care Plan Patient has chronic kidney disease No Britt Varghese [place] Patient has chronic kidney disease Care Plan Patient has chronic kidney disease No Britt Varghese [place] Patient has diabetic neuropathy Care Plan Patient has diabetic neuropathy No Britt Varghese [place] Patient has diabetic neuropathy Care Plan Patient has diabetic neuropathy No Britt Varghese [place] Patient has diabetic neuropathy Care Plan Patient has diabetic neuropathy No Britt Varghese [place] Patient has diabetic neuropathy Care Plan Patient has diabetic neuropathy No Britt Varghese [place] Weekly blood pressure task Care Plan Weekly blood pressure task No Hue Meza MD Weekly blood pressure task Care Plan Weekly blood pressure task No Hue Meza MD Weekly blood pressure task Care Plan Weekly blood pressure task No Hue Meza MD Weekly blood pressure task Care Plan Weekly blood pressure task No Hue Meza MD Patient has diabetic eye disease Care Plan Patient has diabetic eye disease No Hue Meza MD Patient has diabetic eye disease Care Plan Patient has diabetic eye disease No Hue Meza MD Patient has diabetic eye disease Care Plan Patient has diabetic eye disease No Hue Meza MD Patient has diabetic eye disease Care Plan Patient has diabetic eye disease No Hue Meza MD Patient has chronic kidney disease Care Plan Patient has chronic kidney disease No Hue Meza MD Patient has chronic kidney disease Care Plan Patient has chronic kidney disease No Hue Meza MD Patient has chronic kidney disease Care Plan Patient has chronic kidney disease No Hue Meza MD Patient has chronic kidney disease Care Plan Patient has chronic kidney disease No Hue Meza MD Patient has diabetic neuropathy Care Plan Patient has diabetic neuropathy No Hue Meza MD Patient has diabetic neuropathy Care Plan Patient has diabetic neuropathy No Hue Meza MD Patient has diabetic neuropathy Care Plan Patient has diabetic neuropathy No Hue Meza MD Patient has diabetic neuropathy Care Plan Patient has diabetic neuropathy No Hue Meza MD documented as of this encounter Procedures Procedure Name Priority Date/Time Associated Diagnosis Comments XR CHEST 2 VIEWS Routine 02/20/2025 1:03 PM EST Chronic obstructive pulmonary disease, unspecified COPD type ([facility]) ([facility]) POCT GLYCATED HEMOGLOBIN, TOTAL Routine 02/20/2025 9:52 AM EST Type 2 diabetes mellitus without complication, with long-term current use of insulin ([facility] [facility]) POCT GLUCOSE Routine 02/20/2025 9:51 AM EST Type 2 diabetes mellitus without complication, with long-term current use of insulin ([facility]) documented in this encounter Results * XR Chest 2 Views (02/20/2025 1:03 PM EST) Anatomical Region Laterality Modality Chest Radiographic Azul ging 02/20/2025 1:03 PM EST Narrative 02/20/2025 1:29 PM EST [facility] [address] [place] [address] XRay Report Signed Patient: Hue Murphy MR#: [id number] : 1945 Acct:[id number] Age/Sex: 79 / F ADM Date: 02/20/25 Loc: HO.CX Attending Dr: Hue Lopez MD Ordering Physician: Hue Meza MD Date of Service: 02/20/25 Procedure(s): XR chest 2V Accession Number(s): [id number] cc: Hue Meza MD Reason for Exam: worsening SOB ,cough EXAMINATION: XR CHEST CLINICAL INFORMATION: worsening SOB ,cough COMPARISON: Previous chest x-rays most recent September 2024 TECHNIQUE: 2 views of the chest were obtained. FINDINGS: The lungs are clear. No consolidation or pulmonary edema. No pleural effusion or pneumothorax. Cardiac and mediastinal contours are stable. Mediastinal clips probably from CABG. Calcified thoracic aorta. Degenerative changes of the spine and shoulders. Median sternotomy wires. XR/XR chest 2V IMPRESSION: No evidence for acute disease in the chest. Electronically signed by: Angelica Bell MD 02/20/2025 01:26 PM EST Dictated By: Angelica Bell MD Signed By: <Electronically signed by Angelica Bell MD in OV> 02/20/25 1326 DD/ 1303 TD/TT: 02/20/25 1312 Splash Line Operator: HERACLIO Procedure Note Donotuseinterpreter, Image - 02/20/2025 [facility] [address] [place] [address] XRay Report Signed Patient: Hue Murphy DMR#: [id number] : 1945cct:[id number] Age/Sex: 79 / FADM Date: 02/20/25 Loc: HO.CX Attending Dr: Hue Lopez MD Ordering Physician: Hue Meza MD Date of Service: 02/20/25 Procedure(s): XR chest 2V Accession Number(s): [id number] cc: Hue Meza MD Reason for Exam: worsening SOB ,cough EXAMINATION: XR CHEST CLINICAL INFORMATION: worsening SOB ,cough COMPARISON: Previous chest x-rays most recent September 2024 TECHNIQUE: 2 views of the chest were obtained. FINDINGS: The lungs are clear. No consolidation or pulmonary edema. No pleural effusion or pneumothorax. Cardiac and mediastinal contours are stable. Mediastinal clips probably from CABG. Calcified thoracic aorta. Degenerative changes of the spine and shoulders. Median sternotomy wires. XR/XR chest 2V IMPRESSION: No evidence for acute disease in the chest. Electronically signed by: Angelica Bell MD 02/20/2025 01:26 PM EST RP Dictated By: Angelica Bell MD Signed By: <Electronically signed by Angelica Bell MD in OV> 02/20/25 1326 DD/ 1303 TD/TT: 02/20/25 1312 Splash Line Operator: HERACLIO Hue Lopez MD IMG XR PROCEDURES Final Result * (ABNORMAL) POCT Hgb A1c (02/20/2025 9:52 AM EST) Pathologist [facility] Hemoglobin A1C 8.6(A) 4.0 - 5.7 % QC Media Lot # [id number] Lot# Expiration Date , Blood 02/20/2025 9:52 AM EST Hue Lopez MD POINT OF CARE VELMA T ENTER/EDIT ORDERABLES Final Result * (ABNORMAL) POCT Glucose (02/20/2025 9:51 AM EST) Glucose Blood, POC 207(A) 60 - 200 mg/dL QC Media Lot # [id number] Lot# Expiration Date , Blood Capillary blood specimen / Unknown 02/20/2025 9:51 AM EST Hue Lopez MD POINT OF CARE VELMA T ENTER/EDIT ORDERABLES Final Result documented in this encounter Visit Diagnoses Diagnosis Chronic obstructive pulmonary disease, unspecified COPD type ([facility]) ([facility])- Primary Type 2 diabetes mellitus without complication, with long-term current use of insulin ([facility]) Essential hypertension Unspecified essential hypertension Osteoporosis, unspecified osteoporosis type, unspecified pathological fracture presence Abnormal EKG Nonspecific abnormal electrocardiogram (ECG) (EKG) Atherosclerosis of coronary artery of lummi heart with other form of angina pectoris, unspecified vessel or lesion type Health care maintenance Anemia, unspecified type Rheumatoid arthritis, involving unspecified site, unspecified whether rheumatoid factor present ([facility]) ([facility]) Acute exacerbation of chronic obstructive pulmonary disease (COPD) ([facility]) ([facility]) Obstructive chronic bronchitis with exacerbation Moderate chronic obstructive pulmonary disease ([facility]) ([facility]) Chronic airway obstruction, not elsewhere classified Obstructive sleep apnea syndrome Obstructive sleep apnea (adult) (pediatric) documented in this encounter Administered Medications Inactive Administered Medications - up to 3 most recent administrations Medication Order MAR Action Action Date Dose Rate Site ipratropium-albuterol (Duo-Neb) 0.5-2.5 mg/3 mL nebulizer solution 3 mL 3 mL, Nebulization, Once, On Sun02/20/25 at 1115, For 1 doseIndications:Chronic obstructive pulmonary disease, unspecified COPD type ([facility]) ([facility]) Given 02/20/2025 11:15 AM EST 3 mL documented in this encounter Additional Health Concerns Active Problems Noted Date Diagnosed Date Help patients manage their type 2 diabetes 02/19 Weekly blood pressure task 02/19/2025 Help patients manage their type 2 diabetes 02/19 Patient has diabetic eye disease 02/19/2025 Help patients manage their type 2 diabetes 02/19 Patient has chronic kidney disease 02/19/2025 Help patients manage their type 2 diabetes 02/19 Patient has diabetic neuropathy 02/19/2025 Weekly blood pressure task 02/19/2025 Weekly blood pressure task 02/19/2025 Weekly blood pressure task 02/19/2025 Patient has diabetic eye disease 02/19/2025 Patient has diabetic eye disease 02/19/2025 Patient has diabetic eye disease 02/19/2025 Patient has chronic kidney disease 02/19/2025 Patient has chronic kidney disease 02/19/2025 Patient has chronic kidney disease 02/19/2025 Patient has diabetic neuropathy 02/19/2025 Patient has diabetic neuropathy 02/19/2025 Patient has diabetic neuropathy 02/19/2025 Weekly blood pressure task 02/19/2025 Weekly blood pressure task 02/19/2025 Weekly blood pressure task 02/19/2025 Weekly blood pressure task 02/19/2025 Patient has diabetic eye disease 02/19/2025 Patient has diabetic eye disease 02/19/2025 Patient has diabetic eye disease 02/19/2025 Patient has diabetic eye disease 02/19/2025 Patient has chronic kidney disease 02/19/2025 Patient has chronic kidney disease 02/19/2025 Patient has chronic kidney disease 02/19/2025 Patient has chronic kidney disease 02/19/2025 Patient has diabetic neuropathy 02/19/2025 Patient has diabetic neuropathy 02/19/2025 Patient has diabetic neuropathy 02/19/2025 Patient has diabetic neuropathy 02/19/2025 Weekly blood pressure task 02/20/2025 Weekly blood pressure task 02/20/2025 Weekly blood pressure task 02/20/2025 Weekly blood pressure task 02/20/2025 Patient has diabetic eye disease 02/20/2025 Patient has diabetic eye disease 02/20/2025 Patient has diabetic eye disease 02/20/2025 Patient has diabetic eye disease 02/20/2025 Patient has chronic kidney disease 02/20/2025 Patient has chronic kidney disease 02/20/2025 Patient has chronic kidney disease 02/20/2025 Patient has chronic kidney disease 02/20/2025 Patient has diabetic neuropathy 02/20/2025 Patient has diabetic neuropathy 02/20/2025 Patient has diabetic neuropathy 02/20/2025 Patient has diabetic neuropathy 02/20/2025 Assessment Noted Time PHQ-9 Depression Total Score: 10 025 11:07 AM EDT documented as of this encounter Care Teams Bulb Assembler Relationship Specialty Start Date End Date Hue Meza MD [address] [place] [id number] PCP - General Internal Medicine 10/6/23 Fely Bowens, Jamie [address] [place] [id number] Pharmacist Internal Medicine 06/02/24 documented as of this encounter
--- NOTE | ~2025-02-24 | CT_ITS ---
EXAMINATION: CT LUMBAR SPINE WITHOUT CONTRAST CLINICAL INFORMATION: S 32.000A. Wedge compression fracture of unspecified vertebra. COMPARISON: Correlated to x-ray dated September 02, [address] chest dated May 23, 2022. TECHNIQUE: Contiguous axial images through the lumbar spine using 2 mm collimation with bone and soft tissue algorithm. Sagittal and coronal reformatted images acquired with soft tissue algorithm. This CT examination was performed using dose optimization techniques as appropriate, variously including the following: *Automated exposure control *Adjustment of mA and/or kV according to patient size (this includes techniques or standardized protocols for targeted exams where dose is matched to indication/reason for exam; i.e. extremities or head) *Use of iterative reconstruction technique DLP: 496 mGy-cm FINDINGS: Last rib-bearing vertebra labeled T12. There is sclerotic inferior endplate compression deformity representing 40-50% volume loss involving the vertebral body of L2. There is a 6.5 mm retropulsion upon the central spinal canal of the posterior inferior endplate. There is a grade 1 retrolisthesis at L3-4. Decreased intervertebral disc height at L4-5 L5-S1 and to a lesser extent L3-4. Small marginal osteophyte formation at multiple levels from T11 to L5 S1. Chondrocalcinosis in the intervertebral disc height at L4-5 and L5-S1. Decreased intervertebral disc spinous processes ligamentous of L3-4, L4-5 and to a lesser extent L5-S1 with mild subchondral cyst formation. There is sclerosis and vacuum phenomenon at the sacroiliac joints. There is facet joint hypertrophy at L3-4, L4-5 and L5-S1 levels. No prevertebral compartment hematoma. T12-L1: Decreased AP dimension of the central spinal canal. No gross neuroforamina stenosis. L1-2: Broad-based disc bulging. Facet joint hypertrophy. Decreased AP diameter of the central spinal canal. No gross neuroforamina stenosis. L2-3: Retropulsion of the posterior inferior endplate. Facet joint and ligamentum flavum hypertrophy. Central spinal canal and bilateral neuroforamina stenosis likely compressing the neural elements of the thecal sac. L3-4: Broad-based disc bulging. Facet joint hypertrophy. Central spinal canal and bilateral neuroforamina stenosis likely encroaching the neural elements. L4-5: Broad-based disc bulging. Facet joint hypertrophy. Central spinal canal and bilateral neuroforamina stenosis likely compressing the neural elements. L5-S1: Broad-based disc bulging. Facet joint hypertrophy. Reduced AP diameter of thecal sac. Bilateral neuroforamina narrowing. Fatty atrophy of the lower lumbar muscles from L4 to sacrum. Numerous diverticula in the sigmoid colon. Residual contrast within the rectosigmoid colon. Calcified plaques throughout the abdominal aorta wall and iliac arteries without gross aneurysm. Calcified plaques in the splenic artery. Calcified plaque at the origin of the celiac trunk, superior mesenteric artery and main renal arteries. No gross hydronephrosis or nephrolithiasis in either kidney. CT/CT lumbar spine wo IV con IMPRESSION: Sclerotic inferior endplate compression deformity representing 40-50% volume loss at L2 vertebra likely old, with retropulsion upon central canal causing central spinal canal and bilateral neuroforamina stenosis at L2-3. Grade 1 retrolisthesis L3-4 on a degenerative basis. Multilevel central spinal canal and bilateral neuroforamina stenosis from L3-4 to L5-S1 pronounced at L4-5 and L3-4 levels. 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 Electronically signed by: Douglas Martínez MD 02/24/2025 02:28 PM EST
--- OUTSIDE RECORDS SUMMARY | 2025-02-24 17:27 | XMS_ITS | Encounter Summary ---
Author Organization [employer] Address [address] [facility] 7t [place] [address] Care Team Providers Care Steam Shovel Operator Name Role Phone Cecy Gonzalez [facility] Primary Care Provider Hue Fish MD Primary Care Pro vider Fely Bowens PharmD Unavailable [phone] Reason for Visit * Reason Onset Date Comments Hospital Follow-up 10/26/2022 Encounter Details Date Type Department Care Team (Late st Contact Info) Description 10/26/2022 Telephone [facility] MEDICINE [address] [place] [address] Cecy Gonzalez FNP Hospital Follow-up Social History [...] 12:16 PM EDT Tc from [facility] at [facility] Tc from pt requesting a [facility] appt. Pt was admitted at [facility] on 10/22/22 and discharged on 10/25/22. Pt wasdiagnosed with small fracture on the spine Please call pts granddaughter Irma at [phone] documented in this encounter Plan of Treatment Upcoming Encounters Date Type Department Care Team (Late st Contact Info) Description 04/20/2025 11:30 AM EST Medication Management [facility] MEDICINE [address] [place] [address] [phone] Taylor Chan PharmD [address] [place] [address] [phone] documented as of this encounter Visit Diagnoses Not on filedocumented in this encounter Care Teams Steam Shovel Operator Relationship Specialty Start Date End Date Cecy Gonzalez FNP PCP - General Family Medicine 08/22/22 12/21/22 Hue Meza MD [address] [place] [address] [phone] PCP - General Internal Medicine 12/22/22 Fely Bowens PharmD [address] [place] [address] [phone] Pharmacist Internal Medicine 06/02/24 documented as of this encounter
--- OUTSIDE RECORDS SUMMARY | 2025-02-24 17:28 | XMS_ITS | Encounter Summary ---
Author Organization [facility] Address [address] [facility] 7t [place] [address] Care Team Providers Care Tool Room Attendant Name Role Phone Cash Arevalo MD Primary Care Provider Unava Cecy Moralez Primary Care Provider Debra vailaCecy Brown Primary Care Provider Debra vailable Hue Meza MD Primary Care Pro vider Fely Bowens PharmD Unavailable [phone] Encounter Details Date Type Department Care Team (Late st Contact Info) Description 03/23/2022 Telephone [facility] MEDICINE [address] [place], [place] [phone] Cash Arevalo MD Social History Tobacco Use [...] Description 04/20/2025 11:30 AM EST Medication Management [facility] MED[facility] [address] [place], [place] [phone] Taylor Chan PharmD [address] [place] [address] documented as of this encounter Visit Diagnoses Not on filedocumented in this encounter Care Teams Tool Room Attendant Relationship Specialty Start Date End Date Cash Arevalo MD PCP - General Family Medicine 01/29/19 03/23/22 Cecy Gonzalez FNP PCP - General Family Medicine 03/24/22 08/21/22 Cecy Gonzalez FNP PCP - General Family Medicine 08/22/22 12/21/22 Hue Meza MD [address] [place] [phone] PCP - General Internal Medicine 12/22/22 Fely Bowens PharmD [address] [place] [phone] Pharmacist Internal Medicine 06/02/24 documented as of this encounter
--- OUTSIDE RECORDS SUMMARY | 2025-02-24 17:28 | XMS_ITS | Encounter Summary ---
Author Organization [employer] [facility] Address [address] [facility] 7t [place] [address] Care Team Providers Care Electrical Engineering Drafting Officer Name Role Phone Cecy Gonzalez HOSPITALITY COORDINATOR Primary Care Provider Debra vailaCecy Brown HOSPITALITY COORDINATOR Primary Care Provider Debra vailable Hue Meza MD Primary Care Pro vider Fely Bowens PharmD Unavailable [phone] Encounter Details Date Type Department Care Team (Late st Contact Info) Description 05/15/2022 Orders Only [facility]S [address], [place] [phone] Lindsey Ascencio LPN Social History Tobacco Use [...] Department Care Team (Late Contact Info) Description 04/20/2025 11:30 AM EST Medication Management [facility] MEDICINE [address] [place], [place] [phone] Taylor Chan, PharmD [address] [place], [place] [phone] documented as of this encounter Procedures Procedure Name Priority Date/Time Associated Diagnosis Comments T4, FREE Routine 11/02/2022 2:27 PM EDT documented in this encounter Results * T4, Free (11/02/2022 2:27 PM EDT) Free T4 (Free Thyroxine) 1.72 0.71 - 1.85 ng/dL [facility] 11/02/2022 2:27 PM EDT 11/02/2022 4:03 PM EDT us Cecy [facility] LAB BLOOD ORDERABLES Final Result [facility] [address] [place] [address] [phone] documented in this encounter Visit Diagnoses Not on filedocumented in this encounter Care Teams Electrical Engineering Drafting Officer Relationship Specialty Start Date End Date Cecy Gonzalez FNP PCP - General Family Medicine 03/24/22 08/21/22 Cecy oGnzalez FNP PCP - General Family Medicine 08/22/22 12/21/22 Hue Meza MD [address] [place] [address] PCP - General Internal Medicine 12/22/22 Fely Bowens PharmD [address] [place] [address] Pharmacist Internal Medicine 06/02/24 documented as of this encounter
--- OUTSIDE RECORDS SUMMARY | 2025-02-24 17:28 | XMS_ITS | Encounter Summary ---
Author Organization [employer] Address [address] [facility] 7t [place] [address] Care Team Providers Care Felt Hat Inspector And Packer Name Role Phone Hue Meza MD Primary Care Pro vider Fely Bowens PharmD Unavailable [phone] Encounter Details Date Type Department Care Team (Late st Contact Info) Description 02/19/2025 Orders Only GENERIC EXTERNAL DATA DEPARTMENT Provider, [...] Description 04/20/2025 11:30 AM EST Medication Management [facility] [address] [place] [address] Taylor Chan, PharmD [address] [place] [address] documented as of this encounter Goals Goal [...] has diabetic neuropathy No Britt Varghese [place] documented as of this encounter Procedures Procedure Name Priority Date/Time Associated Diagnosis Comments CT LUMBAR SPINE WO CONTRAST Routine 02/24/2025 1:15 PM EST GLUCOSE, WHOLE BLOOD Routine 02/19/2025 11:24 AM EST documented in this encounter Results * CT Lumbar Spine w/o Contrast (02/24/2025 1:15 PM EST) Anatomical Region Laterality Modality Spine, L-spine Computed Tomogra phy 02/24/2025 1:15 PM EST Narrative 02/24/2025 2:31 PM EST [place] [address] CT Scan Report Signed Patient: Hue Murphy MR#: [id number] : 1945 Acct:[id number] Age/Sex: 79 / F ADM Date: 02/24/25 Loc: HO.CT Attending Dr: Mima Black MD Ordering Physician: Mima Black MD Date of Service: 02/24/25 Procedure(s): CT lumbar spine wo IV con Accession Number(s): [id number] cc: Mima Black MD; Hue Meza MD Report Number: [id number]: Total DLP = 496.00 mGy-cm Reason for Exam: S32.000A - Wedge compression fracture of unspecified lumbar vertebra, in... EXAMINATION: CT LUMBAR SPINE WITHOUT CONTRAST CLINICAL INFORMATION: S 32.000A. Wedge compression fracture of unspecified vertebra. COMPARISON: Correlated to x-ray dated September 02, [address] chest dated May 23, 2022. TECHNIQUE: Contiguous axial images through the lumbar spine using 2 mm collimation with bone and soft tissue algorithm. Sagittal and coronal reformatted images acquired with soft tissue algorithm. This CT examination was performed using dose optimization techniques as appropriate, variously including the following: *Automated exposure control *Adjustment of mA and/or kV according to patient size (this includes techniques or standardized protocols for targeted exams where dose is matched to indication/reason for exam; i.e. extremities or head) *Use of iterative reconstruction technique DLP: 496 mGy-cm FINDINGS: Last rib-bearing vertebra labeled T12. There is sclerotic inferior endplate compression deformity representing 40-50% volume loss involving the vertebral body of L2. There is a 6.5 mm retropulsion upon the central spinal canal of the posterior inferior endplate. There is a grade 1 retrolisthesis at L3-4. Decreased intervertebral disc height at L4-5 L5-S1 and to a lesser extent L3-4. Small marginal osteophyte formation at multiple levels from T11 to L5 S1. Chondrocalcinosis in the intervertebral disc height at L4-5 and L5-S1. Decreased intervertebral disc spinous processes ligamentous of L3-4, L4-5 and to a lesser extent L5-S1 with mild subchondral cyst formation. There is sclerosis and vacuum phenomenon at the sacroiliac joints. There is facet joint hypertrophy at L3-4, L4-5 and L5-S1 levels. No prevertebral compartment hematoma. T12-L1: Decreased AP dimension of the central spinal canal. No gross neuroforamina stenosis. L1-2: Broad-based disc bulging. Facet joint hypertrophy. Decreased AP diameter of the central spinal canal. No gross neuroforamina stenosis. L2-3: Retropulsion of the posterior inferior endplate. Facet joint and ligamentum flavum hypertrophy. Central spinal canal and bilateral neuroforamina stenosis likely compressing the neural elements of the thecal sac. L3-4: Broad-based disc bulging. Facet joint hypertrophy. Central spinal canal and bilateral neuroforamina stenosis likely encroaching the neural elements. L4-5: Broad-based disc bulging. Facet joint hypertrophy. Central spinal canal and bilateral neuroforamina stenosis likely compressing the neural elements. L5-S1: Broad-based disc bulging. Facet joint hypertrophy. Reduced AP diameter of thecal sac. Bilateral neuroforamina narrowing. Fatty atrophy of the lower lumbar muscles from L4 to sacrum. Numerous diverticula in the sigmoid colon. Residual contrast within the rectosigmoid colon. Calcified plaques throughout the abdominal aorta wall and iliac arteries without gross aneurysm. Calcified plaques in the splenic artery. Calcified plaque at the origin of the celiac trunk, superior mesenteric artery and main renal arteries. No gross hydronephrosis or nephrolithiasis in either kidney. CT/CT lumbar spine wo IV con IMPRESSION: Sclerotic inferior endplate compression deformity representing 40-50% volume loss at L2 vertebra likely old, with retropulsion upon central canal causing central spinal canal and bilateral neuroforamina stenosis at L2-3. Grade 1 retrolisthesis L3-4 on a degenerative basis. Multilevel central spinal canal and bilateral neuroforamina stenosis from L3-4 to L5-S1 pronounced at L4-5 and L3-4 levels. 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 Electronically signed by: Douglas Martínez MD 02/24/2025 02:28 PM EST Dictated By: Douglas Roberts MD Signed By: <Electronically signed by Douglas Herrera MD in OV> 02/24/25 1428 DD/ 1315 TD/TT: 02/24/25 1416 Rn Icu: Procedure Note Donotuseinterpreter, Image - 02/24/[address] [place] [address] [address] Scan Report Signed Patient: Hue Murphy [facility]#: [id number] : 6Acct:[id number] Age/Sex: 79 / FADM Date: 02/24/25 Loc: HO.CT Attending Dr: Mima Black MD Ordering Physician: Mima Black MD Date of Service: 02/24/25 Procedure(s): CT lumbar spine wo IV con Accession Number(s): [id number] cc: Mima Black MD; Hue Meza MD Report Number: [id number]: Total DLP = 496.00 mGy-cm Reason for Exam: S32.000A - Wedge compression fracture of unspecifiedlumbar vertebra, in... EXAMINATION: CT LUMBAR SPINE WITHOUT CONTRAST CLINICAL INFORMATION: S 32.000A. Wedge compression fracture of unspecified vertebra. COMPARISON: Correlated to x-ray dated September 02, [address] chest dated May 23, 2022. TECHNIQUE: Contiguous axial images through the lumbar spine using 2 mm collimation with bone and soft tissue algorithm. Sagittal and coronal reformatted images acquired with soft tissue algorithm. This CT examination was performed using dose optimization techniques as appropriate, variously including the following: *Automated exposure control *Adjustment of mA and/or kV according to patient size (this includes techniques or standardized protocols for targeted exams where dose is matched to indication/reason for exam; i.e. extremities or head) *Use of iterative reconstruction technique DLP: 496 mGy-cm FINDINGS: Last rib-bearing vertebra labeled T12. There is sclerotic inferior endplate compression deformity representing 40-50% volume loss involving the vertebral body of L2. There is a 6.5 mm retropulsion upon the central spinal canal of the posterior inferior endplate. There is a grade 1 retrolisthesis at L3-4. Decreased intervertebral disc height at L4-5 L5-S1 and to a lesser extent L3-4. Small marginal osteophyte formation at multiple levels from T11 to L5 S1. Chondrocalcinosis in the intervertebral disc height at L4-5 and L5-S1. Decreased intervertebral disc spinous processes ligamentous of L3-4, L4-5 and to a lesser extent L5-S1 with mild subchondral cyst formation. There is sclerosis and vacuum phenomenon at the sacroiliac joints. There is facet joint hypertrophy at L3-4, L4-5 and L5-S1 levels. No prevertebral compartment hematoma. T12-L1: Decreased AP dimension of the central spinal canal. No gross neuroforamina stenosis. L1-2: Broad-based disc bulging. Facet joint hypertrophy. Decreased AP diameter of the central spinal canal. No gross neuroforamina stenosis. L2-3: Retropulsion of the posterior inferior endplate. Facet joint and ligamentum flavum hypertrophy. Central spinal canal and bilateral neuroforamina stenosis likely compressing the neural elements of the thecal sac. L3-4: Broad-based disc bulging. Facet joint hypertrophy. Central spinal canal and bilateral neuroforamina stenosis likely encroaching the neural elements. L4-5: Broad-based disc bulging. Facet joint hypertrophy. Central spinal canal and bilateral neuroforamina stenosis likely compressing the neural elements. L5-S1: Broad-based disc bulging. Facet joint hypertrophy. Reduced AP diameter of thecal sac. Bilateral neuroforamina narrowing. Fatty atrophy of the lower lumbar muscles from L4 to sacrum. Numerous diverticula in the sigmoid colon. Residual contrast within the rectosigmoid colon. Calcified plaques throughout the abdominal aorta wall and iliac arteries without gross aneurysm. Calcified plaques in the splenic artery. Calcified plaque at the origin of the celiac trunk, superior mesenteric artery and main renal arteries. No gross hydronephrosis or nephrolithiasis in either kidney. CT/CT lumbar spine wo IV con IMPRESSION: Sclerotic inferior endplate compression deformity representing 40-50% volume loss at L2 vertebra likely old, with retropulsion upon central canal causing central spinal canal and bilateral neuroforamina stenosis at L2-3. Grade 1 retrolisthesis L3-4 on a degenerative basis. Multilevel central spinal canal and bilateral neuroforamina stenosis from L3-4 to L5-S1 pronounced at L4-5 and L3-4 levels. 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 Electronically signed by: Douglas Martínez MD 02/24/2025 02:28 PM EST RP Dictated By: Douglas Roberts MD Signed By: <Electronically signed by Douglas Herrera MDin OV> 02/24/25 1428 DD/ 1315 TD/TT: 02/24/25 1416 Rn Icu: us [facility] External Provider IMG CT PROCEDURES Final Result * (ABNORMAL) Glucose, Whole Blood (02/19/2025 11:24 AM EST) Glucose, Whole Blood 197(H) 60 - 115 mg/dL [facility] Comment:METER #: [id number] Testing performed in the Endocrinology Department [address] , [address], [facility]. 02/19/2025 11:2 4 AM EST 02/19/2025 11:28 AM EST Generic External Data Provider LAB BLOOD ORDERAB LES Final Result [facility] [address] [place] [phone] documented in this encounter Visit Diagnoses Not on filedocumented in this encounter Additional Health Concerns Active [...] neuropathy 02/19/2025 Patient has diabetic neuropathy 02/19/2025 Assessment Noted Time PHQ-9 Depression Total Score: 10 08/12/ 025 11:07 AM EDT documented as of this encounter Care Teams Felt Hat Inspector And Packer Relationship Specialty Start Date End Date Hue Meza MD [address] [place] [address] PCP - General Internal Medicine 12/22/22 Fely Bowens PharmD [address] [place] [address] Pharmacist Internal Medicine 06/02/24 documented as of this encounter
--- OUTSIDE RECORDS SUMMARY | 2025-02-24 17:28 | XMS_ITS | Encounter Summary ---
Author Organization [employer] Address 75 [facility] 7t [place] [address] Care Team Providers Care Labor Specialist Name Role Phone Hue Meza MD Primary Care Pro vider Fely Bowens PharmD Unavailable [phone] Encounter Details Date Type Department Care Team (Latest Contact Info) Description 02/20/2025 Travel Social History Tobacco Use Types Packs/Day Years [...] Description 04/20/2025 11:30 AM EST Medication Management [facility] MED[facility] [address] [place] [address] Taylor Chan, PharmD [address] [place] [address] documented as of this encounter Goals Goal Patient Goal Type Associated Problems Recent Progress Patient-Stated? Author Blood Pressure < 140/90 Blood Pressure 126/62(2024 9:49 AM EST) Boby Connelly Hemoglobin A1c < 8 Result Component 8.6( 9:52 AM EST) No Boby Anand Help patients manage their type 2 diabetes [...] Meza MD documented as of this encounter Visit Diagnoses [...] documented as of this encounter Care Teams Labor Specialist Relationship Specialty Start Date End Date Hue Meza MD [address] [place] [phone] PCP - General Internal Medicine 10/6/23 Fely Bowens, Jamie [address] [place] [phone] Pharmacist Internal Medicine 06/02/24 documented as of this encounter
--- OUTSIDE RECORDS SUMMARY | 2025-02-24 17:28 | XMS_ITS | Encounter Summary ---
Author Organization [employer] Address [address] [facility] 7t [place] [address] Care Team Providers Care Assistant County Attorney Name Role Phone Hue Meza MD Primary Care Pro vider Fely Bowens PharmD Unavailable [phone] Reason for Visit * Reason Onset Date Comments chartprep 02/19/2025 Encounter Details Date Type Department Care Team (Late st Contact Info) Description 02/19/2025 Telephone [facility] MEDICINE [address] [place], [place] [phone] Hue Meza MD [address] [place], [place] [phone] chartprep Social History Tobacco Use Types Packs/Day Years [...] encounter Miscellaneous Notes * Telephone Encounter - Britt Varghese [place] - 02/19/2025 1:35 PM EST ..Chart Prep Labs: done Images: done Vaccines due: Covid Due Referrals: Not Applicable Screenings: Eye Exam and Foot Exam Overdue care gaps: A1C, Glucose, SDOH, PHQ9, and GAD7 documented in this encounter Plan of Treatment Upcoming Encounters Date Type Department Care Team (Late st Contact Info) Description 04/20/2025 11:30 AM EST Medication Management [facility] MEDICINE [address] [place] [address] Taylor Chan, PharmD [address] [place] [address] documented as of this encounter Goals Goal Patient Goal Type Associated Problems Recent Progress Patient-Stated? Author Blood Pressure < 140/90 Blood Pressure 126/62(2024 9:49 AM EST) No Boby Anand Hemoglobin A1c < 8 Result Component 8.6( [...] Care Plan Patient has diabetic neuropathy No Brtit Varghese [place] Patient has diabetic neuropathy Care Plan Patient has diabetic neuropathy Britt Carrillo [place] documented as of this encounter Visit Diagnoses [...] documented as of this encounter Care Teams Assistant County Attorney Relationship Specialty Start Date End Date Hue Meza MD [address] [place], [place] [phone] PCP - General Internal Medicine 12/22/22 Fely Bowens PharmD [address] [place] [address] Pharmacist Internal Medicine 06/02/24 documented as of this encounter
--- OUTSIDE RECORDS SUMMARY | 2025-02-24 17:28 | XMS_ITS | Encounter Summary ---
Author Organization [employer] Address 75 [facility] 7t [place] [address] Care Team Providers Care Electric Motor Assembler Name Role Phone Hue Meza MD Primary Care Pro vider Fely Bowens PharmD Unavailable [phone] Reason for Visit * Reason Onset Date Comments Results 02/20/2025 Encounter Details Date Type Department Care Team ([facility] st Contact Info) Description 02/20/2025 Results Follow-Up [facility] [address] [place], [place] [phone] Hue Meza MD [address] [place] [address] XR Chest 2 Views Social History Tobacco [...] encounter Miscellaneous Notes * Telephone Encounter - Tracy Sheikh MA - 02/23/2025 9:10 AM EST Called pt and informed her of X-ray results per Provider. * Result Encounter Note - Hue Lopez MD - 02/20/2025 1:56 PM EST Please inform pt of normal CXR Thanks documented in this encounter Plan of Treatment Upcoming Encounters Date Type Department Care Team (Late st Contact Info) Description 04/20/2025 11:30 AM EST Medication Management [facility] [address] [place] [address] Taylor Chan, PharmD [address] [place] [address] documented as of this encounter Goals Goal [...] Plan Weekly blood pressure task No Britt Varhgese MA Weekly blood pressure task Care Plan [...] as of this encounter Care Teams Electric Motor Assembler Relationship Specialty Start Date End Date Hue Meza MD [address] [place] [address] PCP - General Internal Medicine 12/22/22 Fely Bowens PharmD [address] [place] [address] Pharmacist Internal Medicine 06/02/24 documented as of this encounter
--- OUTSIDE RECORDS SUMMARY | 2025-02-24 17:28 | XMS_ITS | Encounter Summary ---
Author Organization [employer] Address [address] [facility] 7t [place] [address] Care Team Providers Care Helicopter Pilot Instructor Name Role Phone Cash Arevalo MD Primary Care Provider Debrava Cecy Moralez Primary Care Provider Debra vailaCecy Brown Primary Care Provider Debra vailable Hue Meza MD Primary Care Pro vider Fely Bowens PharmD Unavailable [phone] Reason for Visit * Reason Onset Date Comments transfer pt appt 03/23/2022 Encounter Details Date Type Department Care Team (Late st Contact Info) Description 03/23/2022 Telephone [facility] MEDICINE [address] [place] [address] Cash Arevalo MD transfer pt appt Social [...] Description 04/20/2025 11:30 AM EST Medication Management [facility] MEDICINE [address] [place] [address] Taylor Chan, Jamie [address] [place] [address] documented as of this encounter Visit Diagnoses Not on filedocumented in this encounter Care Teams Helicopter Pilot Instructor Relationship Specialty Start Date End Date Cash Arevalo MD PCP - General Family Medicine 01/29/19 03/23/22 Cecy Gonzalez FNP PCP - General Family Medicine 03/24/22 08/21/22 Cecy Gonzalez FNP PCP - General Family Medicine 08/22/22 12/21/22 Hue Meza MD [address] [place], [place] [phone] PCP - General Internal Medicine 12/22/22 Fely Bowens, BessyD [address] [place], [place] [phone] Pharmacist Internal Medicine 06/02/24 documented as of this encounter
--- OUTSIDE RECORDS SUMMARY | 2025-02-24 17:29 | XMS_ITS | Clinical Summary ---
Author Organization [employer] Address [address] [facility] [address] [place] [address] Care Team Providers Care Protective Signal Operations Supervisor Name Role Phone Hue Meza MD Primary Care Pro vider Fely Bowens PharmD Unavailable [phone] Allergies Active Allergy Reactions Criticality Noted Date [...] anxiety, unspecified dementia severity, unspecified dementia type ([facility]/HCC) ([facility]) TAKE 1 TABLET BY MOUTH AT BEDTIME 28 tablet 3 023 Active glucose blood (FREESTYLE LITE) test stripIndication s:Type 2 diabetes mellitus with other specified complication, unspecified whether ferry terminal agent insulin use ([facility]) TEST BLOOD SUGAR 3 TIMES A DAY 100 strip 11 024 Active glucose blood (FreeStyle Precision Feroz Test) test stripIndication s:Type 2 diabetes mellitus with other specified complication, with long-term current use of insulin ([facility]) Test blood sugar q 8 [...] DAILY 100 each Active Easy Touch Pen [place] 31G X 8 MM misc USE ONCE DAILY WITH LANTUS 100 each 02/05/20 11:34 AM EST Active Acetaminophen Extra Strength 500 MG tablet Active senna (Senokot) 8.6 MG tablet TAKE 1 TABLET BY MOUTH AT BEDTIME FOR CONSTIPATION Active insulin lispro (HumaLOG) 200 UNIT/ML solution pen-injector penIndications: Type 2 diabetes mellitus with other specified complication, with long-term current use of insulin (HCC) Sliding scale, to use insuline with meals 150 to 200 2 units, 201 to 250 3 units, 251 to 300 4 units , > 300 5 units 1 each 2 02/05/20 11:34 AM EST 025 Active glucose 4 g chewable tablet Chew 4 tablets (16 g) if needed for low blood sugar. 50 tablet 12 025 2025 Active Tyenne 162 MG/0.9ML solution auto-injector Active Diclofenac Sodium (Voltaren) 1 % gel Apply 2 g topically if needed in the morning and at bedtime (muscle pain). 100 g 2 Active cyanocobalamin (Vitamin B-12) 500 MCG tablet Take 1 tablet (500 mcg) by mouth 1 (one) time per week. TAKE 1 TABLET weekly 90 tablet 1 02/05/20 11:34 AM EST Active Trelegy Ellipta 200-62.5-25 MCG/ACT aerosol powder INHALE 1 PUFF BY MOUTH EVERY DAY AT THE SAME TIME RINSE MOUTH AFTER USING Active Continuous Glucose Sensor (FreeStyle Wilmar 3 Plus Sensor) misc 1 each every 15 days. Apply 1 every 15 days as directed for CGM 2 each 02/24/20 12:31 PM EST 025 Active Blood Pressure kit 1 Device Once per day. 1 kit 025 Active pyridoxine (Vitamin B-6) 50 MG tablet TAKE 1 TABLET BY MOUTH EVERY MORNING 90 tablet 1 Active FLUoxetine (PROzac) 10 MG capsule TAKE 1 CAPSULE BY MOUTH EVERY MORNING 90 capsule Active furosemide (Lasix) 20 MG tabletIndicatio ns:Chronic diastolic (congestive) heart failure (HCC) TAKE 1 TABLET BY MOUTH EVERY MORNING 90 tablet Active gabapentin (Neurontin) 300 MG capsuleIndicati ons:Neuropathy TAKE 1 CAPSULE BY MOUTH AT BEDTIME 30 capsule 5 02/05/20 25 11:34 AM EST Active Glyxambi 10-5 MG TAKE 1 TABLET BY MOUTH EVERY MORNING 30 tablet 5 Active folic acid (Folvite) 1 MG tablet [...] complication, with long-term current use of insulin ([facility]) Inject 22 Units under the skin at bedtime. 15 mL 5 02/05/20 25 11:34 AM EST 025 2025 Active Aspirin Low Dose 81 MG EC tabletIndicatio ns:Atherosclero sis of coronary artery of minto heart, unspecified vessel or lesion type, unspecified whether angina present TAKE 1 TABLET BY MOUTH EVERY MORNING 90 tablet 1 02/05/20 25 11:34 AM EST 025 Active famotidine (Pepcid) 20 MG tablet TAKE 1 TABLET BY MOUTH EVERY MORNING 90 tablet 02/05/20 25 11:34 AM EST 025 Active atorvastatin (Lipitor) 40 MG tablet TAKE 1 TABLET BY MOUTH EVERY MORNING 90 tablet 1 Active carvedilol (Coreg) 3.125 MG tabletIndicatio ns:Essential hypertension TAKE 1 TABLET BY MOUTH TWICE DAILY IN THE MORNING AND IN THE EVENING WITH FOOD 180 tablet Active verapamil SR (Calan SR) 120 MG ER tablet Take 120 mg by mouth at bedtime. Do not crush or chew. Active albuterol (Ventolin HFA) 108 (90 Base) MCG/ACT inhaler Inhale 2 puffs every 4 (four) hours if needed for shortness of breath. 18 g 11 02/21/20 25 5:06 PM EST Active ipratropium-alb uterol (Duo-Neb) 0.5-2.5 mg/3 mL nebulizer solutionIndicat ions:Chronic obstructive pulmonary disease, unspecified COPD type (CMS/HCC) ([facility]) Take 3 mL by nebulization every 6 (six) hours. 180 mL 2 02/21/20 25 5:06 PM EST 2025 Active predniSONE (Deltasone) 20 MG tabletIndicatio ns:Chronic obstructive pulmonary disease, unspecified COPD type (CMS/HCC) ([facility]) 2 tabs po daily for 5 days 10 tablet 02/21/20 2:13 PM EST Active atorvastatin (Lipitor) 40 MG tablet TAKE 1 TABLET BY MOUTH EVERY MORNING 90 tablet 1 025 2024 Discontinued albuterol (Ventolin HFA) 108 (90 Base) MCG/ACT inhaler Inhale 2 puffs every 4 (four) hours if needed for shortness of breath. 18 g 11 025 2024 Discontinued(R eorder (will not trigger notification to Pharmacy)) albuterol (2.5 MG/3ML) 0.083% nebulizer solution 2024 Discontinued(O ther) carvedilol (Coreg) 3.125 MG tabletIndicatio ns:Essential hypertension TAKE 1 TABLET BY MOUTH TWICE DAILY IN THE MORNING AND IN THE EVENING WITH FOOD 180 tablet 2024 Discontinued(R eorder (will not trigger notification to Pharmacy)) amLODIPine (Norvasc) 5 MG tablet TAKE 1 TABLET BY MOUTH EVERY EVENING 90 tablet 025 2024 Discontinued(R eorder (will not trigger notification to Pharmacy)) fluticasone (Flonase) 50 MCG/ACT nasal spray INSTILL 1-2 SPRAYS IN EACH NOSTRIL ONCE DAILY NEEDED FOR ALLERGIES 2024 Discontinued(O ther) Calcium 600/Vitamin D3 600-20 MG-MCG tablet TAKE 1 TABLET BY MOUTH TWICE DAILY IN THE MORNING AND IN THE EVENING WITH MEALS 180 tablet 3 02/05/20 25 11:34 AM EST 025 2024 Discontinued(O ther) amLODIPine (Norvasc) 5 MG tablet Take 1 tablet (5 mg) by mouth at bedtime. 90 tablet 025 2024 Discontinued(O ther) Hospital, Clinic, or Other Facility Administered Medication Ordered Dose Route Frequency Start Date End Date Status ipratropium-albutero l (Duo-Neb) 0.5-2.5 mg/3 mL nebulizer solution 3 mLIndications:Chroni c obstructive pulmonary disease, unspecified COPD type (CMS/HCC) ([facility]) 3 mL NEBULIZATION Once 02/20/2025 02/20/2025 En ded Active Problems Problem Noted Date Diagnosed Date Osteoporosis 02/20/2025 Acute exacerbation of chroni c obstructive pulmonary disease (COPD) (CMS/HCC) 10/10/2024 Eye lesion 08/12/2024 Diabetic retinopathy 08/12/2024 Leukocytosis [...] Elevated alkaline phosphatase level 05/22/2023 Rheumatoid arthritis (CMS/HCC) 03/04/2023 Lumbar vertebral fracture ([facility]/HCC) 03/04/2023 Assessment & Plan (09/02/2024 2:28 PM [...] yet for f/u by TB clinic [facility] Assessment & Plan (12/21/2022 11:17 AM EDT): Provider called [facility] TB during visit requesting status of appt. No answer Also gave family phone number to call [facility] TB directly RTC if cough worsens [...] Last Dental Exam: N, referral sent to [facility] Dental 07/2023 Assessment & Plan (11/05/2023 12:20 PM EDT): Assessment: - NOT at goal of A1c less than 7% or fasting BG between 70-130 mg/dL per ADA guidelines. Plan/ Recommendations: - START using ioSafeyle wilmar 3 today; demonstrated and applied during [...] yet for f/u by TB clinic [facility] Provider called [facility] TB during visit requesting status of appt. No answer Also gave family phone number to call [facility] TB directly RTC if cough worsens F/u PRN Assessment & Plan (11/02/2022 6:31 PM EDT): Wheezing noted exam Recommended SANTOS use PRN F/u PRN Obstructive sleep apnea syndrome 10/13/2014 Gastroparesis 12/10/2013 Hyperlipidemia 06/27/2012 Atherosclerosis of coronary artery of minto heart with other form of angina pectoris, unspecified vessel or lesion type 06/18/2012 Assessment & Plan (12/21/2022 11:13 AM EDT): Refill aspirin for medbox program F/u PRN Diabetic polyneuropathy 06/18/2012 Resolved Problems Problem Noted Date Diagnosed Date Resolved Date Senile purpura 10/10/2024 02/20/2025 Chronic cough 08/17/2023 10/17/2023 Encounters Date Type Department Care Team Description 02/20/2025 9:45 AM EST Office Visit [facility] [address] [place] [address] Hue Meza MD Chronic obstructive pulmonary disease, unspecified COPD type (CMS/HCC) ([facility]) (Primary Dx); Type 2 diabetes mellitus without complication, with long-term current use of insulin ([facility]); Essential hypertension; Osteoporosis, unspecified osteoporosis type, unspecified pathological fracture presence; Abnormal EKG; Atherosclerosis of coronary artery of minto heart with other form of angina pectoris, unspecified vessel or lesion type; Health care maintenance; Anemia, unspecified type; Rheumatoid arthritis, involving unspecified site, unspecified whether rheumatoid factor present (CMS/HCC) ([facility]); Acute exacerbation of chronic obstructive pulmonary disease (COPD) (CMS/HCC) ([facility]); Moderate chronic obstructive pulmonary disease (CMS/HCC) ([facility]); Obstructive sleep apnea syndrome 02/20/2025 Results Follow-Up [facility] [address] [place] [address] Hue Meza MD XR Chest 2 Views 02/20/2025 Travel 02/19/2025 Telephone [facility] [address] [place] [address] Hue Meza MD chartprep 02/19/2025 Orders Only GENERIC EXTERNAL DATA DEPARTMENT Provider, Generic External Data 02/16/2025 Refill [facility] [address] [place] [address] Hue Meza MD 01/21/2025 Refill [facility] [address] [place] [address] Hue Meza MD 01/15/2025 Refill [facility] [address] [place] [address] Hue Meza MD Atherosclerosis of coronary artery of minto heart, unspecified vessel or lesion type, unspecified whether angina present 01/12/2025 Orders Only GENERIC EXTERNAL DATA DEPARTMENT Provider, Generic External Data 01/06/2025 Travel 12/25/2024 Refill [facility] [address] [place] [address] uHe Meza MD [facility] 12/18/2024 Refill [facility] [address] [place] [address] Hue Meza MD Neuropathy 12/17/2024 Refill [facility] [address] [place] [address] Hue Meza MD Chronic diastolic (congestive) heart failure (HCC) 12/01/2024 Orders Only [facility] [address] [place] [address] Hue Meza MD 11/28/2024 Telephone [facility] [address] [place] [address] Hue Meza MD dec recall 11/27/2024 Results Follow-Up [facility] [address] [place] [address] Hue Meza MD BD DEXA Axial 11/27/2024 Orders Only [facility] External Provider, [facility] 11/25/2024 Refill [facility] [address] [place] [address] Zoila Romero MD Essential hypertension from Last 3 Months Immunizations Immunization Administration [...] Mass Index 27.73 02/20/2025 9:49 AM EST Plan of Treatment Upcoming Encounters Date Type Department Care Team (Late st Contact Info) Description 04/20/2025 11:30 AM EST Medication Management [facility] [address] [place] [address] Taylor Chan, PharmD [address] [place] [address] Health Maintenance Due Date Last Done Comments Diabetes: Foot Exam 12/17/1955 Eye Exam 12/17/1955 COVID-19 Vaccine ( season) 2024 12/24/2023, 03/02/2023, 01/31/2021, Additional history exists SDOH Screening 11/29/2024 11/30/2023 Depression Monitoring 02/12/2025 08/12/2024, 025 Diabetes: Hemoglobin A1C 05/21/2025 025, 01/06/2025, 08/29/2024, Additional history exists Alcohol/Substance Use Screening 08/12/2025 08/12/2024 Lipid Panel 08/29/2025 08/29/2024, 01/17, 03/20/2023 Diabetes: Urine Protein Screening 09/02/2025 09/02/2024, 02/05/2024, 12/22/2021, Additional history exists Tobacco Screening 02/20/2026 02/20/2025 DTaP/Tdap/Td Vaccines (3 - Td or Tdap) [...] has diabetic neuropathy No Hue Meza MD Procedures Procedure Name Priority Date/Time Associated Diagnosis Comments CT LUMBAR SPINE WO CONTRAST Routine 02/24/2025 1:15 PM EST XR CHEST 2 VIEWS Routine 02/20/2025 1:03 PM EST Chronic obstructive pulmonary disease, unspecified COPD type (CMS/HCC) (HCC) POCT GLYCATED HEMOGLOBIN, TOTAL Routine 02/20/2025 9:52 AM EST Type 2 diabetes mellitus without complication, with long-term current use of insulin (HCC) POCT GLUCOSE Routine 02/20/2025 9:51 AM EST Type 2 diabetes mellitus without complication, with long-term current use of insulin (HCC) GLUCOSE, WHOLE BLOOD Routine 02/19/2025 11:24 AM EST VITAMIN D,25-OH,TOTAL,IA Routine 01/12/2025 11:11 AM EDT COMPREHENSIVE METABOLIC PANEL Routine 01/12/2025 11:11 AM EDT POCT GLYCATED HEMOGLOBIN, TOTAL Routine 01/06/2025 11:04 AM EDT Type 2 diabetes mellitus without complication, with long-term current use of insulin ([facility]) TSH Routine 11/27/2024 2:14 PM EDT MAGNESIUM [...] Recently Relevant to Health Maintenance Results * CT Lumbar Spine w/o Contrast (02/24/2025 1:15 PM EST) Anatomical Region Laterality Modality Spine, L-spine Computed Tomogra phy 02/24/2025 1:15 PM EST Narrative 02/24/2025 2:31 PM EST [address] [address] [address] Scan Report Signed Patient: Hue Murphy MR#: [id number] : 1945 Acct:[id number] Age/Sex: 79 / F ADM Date: 02/24/25 Loc: HO.CT Attending Dr: Mima Black MD Ordering Physician: Mima Black MD Date of Service: 02/24/25 Procedure(s): CT lumbar spine wo IV con Accession Number(s): [id number] cc: Mima Black MD; Hue Meza MD Report Number: [id number]: Total DLP = 496.00 mGy-cm Reason for [...] 02/24/25 1428 DD/ 1315 TD/TT: 02/24/25 1416 Supervisor Remelt: Procedure Note Donotuseinterpreter, Image - 02/24/[address] [place] [address] [address] Scan Report Signed Patient: Hue Murphy [facility]#: [id number] : 6Acct:[id number] Age/Sex: 79 / FADM Date: 02/24/25 Loc: HO.CT Attending Dr: Mima Black MD Ordering Physician: Mima Black MD Date of Service: 02/24/25 Procedure(s): CT lumbar spine wo IV con Accession Number(s): [id number] cc: Mima Black MD; Hue Meza MD Report Number: [id number]: Total DLP = 496.00 mGy-cm Reason for [...] 02/24/25 1428 DD/ 1315 TD/TT: 02/24/25 1416 Supervisor Remelt: [facility] External Provider IMG CT PROCEDURES Final Result * XR Chest 2 Views (02/20/2025 1:03 PM EST) Anatomical Region Laterality Modality Chest Radiographic Azul ging 02/20/2025 1:03 PM EST Narrative 02/20/2025 1:29 PM EST [address] [address] XRay Report Signed Patient: Hue Murphy MR#: [id number] : 1945 Acct:[id number] Age/Sex: 79 / F ADM Date: 02/20/25 Loc: HO.HHCX Attending Dr: Hue Lopez MD Ordering Physician: Hue Meza MD Date of Service: 02/20/25 Procedure(s): XR chest 2V Accession Number(s): [id number] cc: Hue Meza MD Reason for Exam: [...] 02/20/25 1326 DD/ 1303 TD/TT: 02/20/25 1312 Supervisor Remelt: HERACLIO Procedure Note Donotuseinterpreter, Image - 02/20/[address] [address] XRay Report Signed Patient: Hue Murphy [facility]#: [id number] : 1945cct:[id number] Age/Sex: 79 / FADM Date: 02/20/25 Loc: .HHCX Attending Dr: Hue Lopez MD Ordering Physician: Hue Meza MD Date of Service: 02/20/25 Procedure(s): XR chest 2V Accession Number(s): [id number] cc: Hue Meza MD Reason for Exam: [...] 02/20/25 1326 DD/ 1303 TD/TT: 02/20/25 1312 Supervisor Remelt: HERACLIO Hue Lopez MD IMG XR PROCEDURES Final Result * (ABNORMAL) POCT Hgb A1c (02/20/2025 9:52 AM EST) Only the most recent of2 resultswithin the time period is included. Hemoglobin A1C 8.6(A) 4.0 - 5.7 % QC Media Lot # [id number] Lot# Expiration Date [id number] Blood 02/20/2025 9:52 AM EST Hue Lopez MD POINT OF CARE VELMA T ENTER/EDIT ORDERABLES Final Result * (ABNORMAL) POCT Glucose (02/20/2025 9:51 AM EST) Glucose Blood, POC 207(A) 60 - 200 mg/dL QC Media Lot # [id number] Lot# Expiration Date Blood Capillary blood specimen / Unknown 02/20/2025 9:51 AM EST Result [facility] Hue Lopez MD POINT OF CARE VELMA T ENTER/EDIT ORDERABLES Final Result * (ABNORMAL) Glucose, Whole Blood (02/19/2025 11:24 AM EST) Glucose, Whole Blood 197(H) 60 - 115 mg/dL [facility] Comment:METER #: [id number] Testing performed in the Endocrinology Department [address] , [address], [facility]. 02/19/2025 11:2 4 AM EST 02/19/2025 11:28 AM EST Generic External Data Provider LAB BLOOD ORDERAB LES Final Result [facility] [address] [place] [phone] * Vitamin D, 25-Hydroxy, Total, Immunoassay (01/12/2025 11:11 AM EDT) Vitamin D 25-OH Total 64.9 >30 ng/mL [facility] Comment: Health Based Reference Values*< 20 ng/mL Gldcgavir60-13 ng/mL Insufficient> 30 ng/mL Sufficient*Tristian PERALTA. N [...] confirmed with another method such as LC-MS/MS. 01/12/2025 11:1 1 AM EDT 01/12/2025 1:14 PM EDT us Generic External Data Provider LAB BLOOD ORDERAB LES Final Result [facility] [address] [place] [phone] * (ABNORMAL) Comprehensive Metabolic Panel (01/12/2025 11:11 AM EDT) Only the most recent of2 resultswithin the time period is included. Pathologist [facility] Sodium 144 135 - 145 mmol/L [facility] Potassium 4.5 3.3 - 5.1 mmol/L [facility] Chloride 108 96 - 108 mmol/L [facility] Carbon Dioxide 31(H) 22 - 29 mmol/L [facility] Anion Gap 10(L) 12 - 20 [facility] Urea Nitrogen (BUN) 14 9 - 16 mg/dL [facility] Creatinine, Serum 1.08 0.5 - 1.4 mg/dL [facility] Estimated Glomerular Filt Rate 49 [facility] Comment:Chronic Kidney Disea se: Estimated GFR < 60 mL/min/1.67p4Cxmspc Kidney Disease: Estimated GFR < 15 mL/min/1.73m2 Glucose 124(H) 60 - 115 mg/dL [facility] Calcium 8.9 8.4 - 10.2 mg/dL [facility] Bilirubin, Total 0.4 0.0 - 1.0 mg/dL [facility] Aspartate Amino Transferase 43(H) 5 - 31 U/L [facility] Alanine Aminotransferase 36(H) 0 - 31 U/L [facility] Total Protein 7.4 6.5 - 8.0 g/dL [facility] Albumin Level 4.3 3.5 - 5.0 g/dL [facility] Alkaline Phosphatase 129(H) 39 - 117 U/L [facility] 01/12/2025 11:1 1 AM EDT 01/12/2025 1:14 PM EDT us Generic External Data Provider LAB BLOOD ORDERAB LES Final Result [facility] [address] [place] [phone] * High Sensitivity Troponin I (11/27/2024 2:14 PM EDT) TROPONIN I HIGH SENSITIVITY 7.5 <3.5 - 17.0 ng/L [facility] Comment:The [employer] high sens itivity Troponin-I results should beused in conjunction with other diagnostic information suchas ECG, clinical observations and information, and patientsymptoms to aid in the diagnosis of ME. 11/27/2024 2:14 PM EDT 11/27/2024 2:16 PM EDT us Generic External Data Provider LAB BLOOD ORDERAB LES Final Result [facility] [address] [place] [phone] * (ABNORMAL) CBC auto differential (11/27/2024 2:14 PM EDT) White Blood Count 8.2 4.8 - 10.8 X10*3/uL [facility] Red Blood Count 4.26 4.20 - 5.50 X10*6/uL [facility] Hemoglobin 12.9 12.0 - 16.0 g/dl [facility] Hematocrit 39.5 37.0 - 47.0 % [facility] Mean Corpuscular Volume 92.7 80.0 - 98.0 fL [facility] Mean Corpuscular Hemoglobin 30.3 27.0 - 33.0 pg [facility] Mean Corpuscular HGB Conc 32.7 31.0 - 35.0 g/dl [facility] Red Cell Distribution Width 13.5 11.0 - 16.0 % [facility] Platelet Count 238 160 - 400 X10*3/uL [facility] Mean Platelet Volume 11.0 9.4 - 12.3 fL [facility] Neutrophils Percent Auto 45.4 45 - 73 % [facility] Imm Gran Pct Auto 0.2 0.0 - 0.4 % [facility] Lymphocytes Percent Auto 34.3 20 - 40 % [facility] Monocytes Percent Auto 13.8(H) 2 - 11 % [facility] Eosinophils Percent Auto 5.6(H) 0 - 4 % [facility] Basophils Percent Auto 0.7 0 - 2 % [facility] NRBC Pct Auto 0.0 0.0 - 0.2 /100WBC [facility] Neutrophils Absolute Auto 3.7 2.0 - 8.3 x10*3/uL [facility] Imm Gran Abs Auto 0.02 0.00 - 0.03 X10*3/uL [facility] Lymphocytes Absolute Auto 2.8 1.2 - 4.9 X10*3/uL [facility] Monocytes Absolute Auto 1.1 0.1 - 1.2 X10*3/uL [facility] Eosinophils Absolute Auto 0.5(H) 0.0 - 0.4 X10*3/uL [facility] Basophils Absolute Auto 0.1 0.0 - 0.2 X10*3/uL [facility] NRBC Abs Auto 0.000 0.0 - 0.012 X10*3/uL [facility] 11/27/2024 2:14 PM EDT 11/27/2024 2:16 PM EDT us Generic External Data Provider LAB BLOOD ORDERAB LES Final Result Performing Organization Address [facility] de Phone Number [facility] [address] [place] [phone] * TSH (11/27/2024 2:14 PM EDT) Thyroid Stimulating Hormone 1.20 0.32 - 4.0 uIU/mL [facility] Comment:TSH 3rd Generation ( [facility]) 11/27/2024 2:14 PM EDT 11/27/2024 2:16 PM EDT us Generic External Data Provider LAB BLOOD ORDERAB LES Final Result Performing Organization Address [facility] Co de Phone Number [facility] [address] [place] [phone] * Magnesium (11/27/2024 2:14 PM EDT) Magnesium 2.3 1.6 - 2.6 mg/dL [facility] 11/27/2024 2:14 PM EDT 11/27/2024 2:16 PM EDT us Generic External Data Provider LAB BLOOD ORDERAB LES Final Result Performing Organization Address City/[facility] Co de Phone Number [facility] [address] [place] [phone] * BD DEXA Axial (11/27/2024 11:15 AM EDT) Anatomical Region Laterality Modality Body Radiographic Azul ging 11/27/2024 11:1 5 AM EDT Narrative 11/27/2024 11:55 AM EDT [facility] [address] [place] [address] Mammography Report Signed Patient: Hue Murphy MR#: [id number] : 1945 Acct:[id number] Age/Sex: 78 / F ADM Date: 11/27/24 Loc: HO.MAMMO Attending Dr: Mima Black MD Ordering Physician: Mima Black MD Results: Date of Service: 11/27/24 Follow Up: Procedure(s): XR DEXA axial skeleton Accession Number(s): [id number] cc: Mima Black MD; Hue Meza MD EXAMINATION: DXA BONE DENSITY AXIAL HISTORY: M81.0 - Age-related osteoporosis without current pathological fracture TECHNIQUE: [employer] Dual energy absorptiometry (DEXA) of the lumbar [...] is a trademark of the [employer]'s [place] for Metabolic Bone Disease, a World Health Organization (WHO) Collaborating Center. Electronically signed by: Theron Nelson MD 11/27/2024 11:53 AM EDT RP Dictated By: Theron Nelson MD Signed By: <Electronically signed by Theron Nelson MD in OV> 11/27/24 1153 DD/ 1115 TD/TT: 11/27/24 1149 Supervisor Remelt: Procedure Note Donotuseinterpreter, Image - 11/27/2024 [place] [facility] [address] [place] [address] Mammography Report Signed Patient: Hue Murphy [facility]#: [id number] : 1945cct:[id number] Age/Sex: 78 / FADM Date: 11/27/24 Loc: MAMMO Attending Dr: Mima Black MD Ordering Physician: Mima Black MDResults: Date of Service: 11/27/24Follow Up: Procedure(s): XR DEXA axial skeleton Accession Number(s): [id number] cc: Mima Black MD; Hue Meza MD EXAMINATION: DXA BONE DENSITY AXIAL HISTORY: M81.0 - Age-related osteoporosis without current pathological fracture TECHNIQUE: [employer] Dual energy absorptiometry (DEXA) of the lumbar [...] is a trademark of the [employer]'s [place] for Metabolic Bone Disease, a World Health Organization (WHO) Collaborating Center. Electronically signed by: Theron Nelson MD 11/27/2024 11:53 AM EDT Dictated By: Theron Nelson MD Signed By: <Electronically signed by Theron Nelson MD in OV> 11/27/24 1153 DD/ 1115 TD/TT: 11/27/24 1149 Supervisor Remelt: [facility] External Provider IM DXA PROCEDURES Final Result * Albumin, Random Urine W/Creatinine (09/02/2024 2:28 PM EDT) Creatinine, Urine 38.57 mg/dL [facility] Microalbumin Urine 5.0 mg/L H [facility] Microalbum Creatinine Ratio Ur 12.9 <30 ug/mg cr [facility] Comment:Albumin/Creatinine R atio Reference Ranges: Normal: < 30 ug/mg creatinine Microalbuminuria: 30 - 300 ug/mg creatinineClinical Albuminuria: > 300 ug/mg creatinine Urine (Urine, Random) 09/02/2024 2:28 PM EDT 09/02/2024 4:05 PM EDT us Hue Lopez MD LAB URINE ORDERAB LES Final Result Performing Organization Address [facility]/ZIP Co de Phone Number [facility] [address] [place] [phone] * Hepatitis C Antibody with Reflex to HCV, RNA, Quantitative, Real-Time PCR (08/29/2024 12:30 PM EDT) Hepatitis C Antibody Nonreactive Nonreactive [facility] Comment:Antibodies to HCV no t detected; does not exclude early acuteHCV infection. Blood Venous blood specimen / Unknown 08/29/2024 12:30 PM EDT 08/29/2024 1:01 PM EDT us Hue Lopez MD LAB BLOOD ORDERAB LES Final Result [facility] [address] [place] [phone] * (ABNORMAL) Lipid Panel, Standard (08/29/2024 12:30 PM EDT) Triglycerides 92 <150 mg/dL [facility] Comment:Desirable Triglyceri de: less than 150 mg/dLBorderline High Triglyceride 150-199 mg/dLHigh Triglyceride: 200-499 mg/dLVery High Triglyceride: greater than or equal to 5OO mg/dL Cholesterol 226(H) <200 mg/dL [facility] Comment:Desirable Cholestero l: less than 200 mg/dLBorderline High Cholesterol: 200-239 mg/dLHigh Cholesterol: greater than 239 mg/dL LDL Cholesterol Calculated 78 <100 mg/dL [facility] Comment:Desirable LDL: less than 100 mg/dLNear Optimal/Above Optimal LDL: 110- 129 mg/dLBorderline High LDL: 130-159 mg/dLHigh LDL: 160-189 mg/dLVery High LDL: greater than or equal to 190 mg/dL HDL Cholesterol 130 >40 mg/dL [facility] Comment:Desirable HDL: great er than 40 mg/dL Note: This HDL assay may give artificially low results in patients with liver disease. Blood Venous blood specimen / Unknown 08/29/2024 12:30 PM EDT 08/29/2024 1:01 PM EDT Hue Lopez MD LAB BLOOD ORDERAB LES Final Result [facility] [address] [place] [phone] from Last 3 Months or Most Recently Relevant to Health Maintenance Additional Health Concerns Active Problems Noted Date [...] neuropathy 02/20/2025 Patient has diabetic neuropathy 02/20/2025 Insurance [id number] OPTIONS (O D-SNP) JESS SORENSEN [id number] Care Teams Protective Signal Operations Supervisor Relationship Specialty Start Date End Date Hue Meza MD [address] [place] [address] PCP - General Internal Medicine 12/22/22 Fely Bowens PharmD [address] [place] [phone] Pharmacist Internal Medicine 06/02/24
--- OUTSIDE RECORDS SUMMARY | 2025-02-24 17:29 | XMS_ITS | Encounter Summary ---
Author Organization [employer] Address [address] [facility] 7t [place] [address] Care Team Providers Care Security Sales Consultant Name Role Phone Hue Meza MD Primary Care Pro vider Fely Bowens PharmD Unavailable [phone] Reason for Visit * Reason Comments Med Refill Encounter Details Date Type Department Care Team (Late st Contact Info) Description 10/10/2024 Refill [facility] [address] [place], [place] [phone] Hue Meza MD [address] [place], [place] [phone] Social History Tobacco Use Types Packs/Day Years [...] Description 04/20/2025 11:30 AM EST Medication Management [facility] [address] [place] [address] Taylor Chan PharmD [address] [place] [phone] documented as of this encounter Goals Goal Patient Goal Type Associated Problems Recent Progress Patient-Stated? Author Blood Pressure < 140/90 Blood Pressure 126/62(2024 9:49 AM EST) No Boby Anand Hemoglobin A1c < 8 Result Component 8.6( 9:52 AM EST) No Boby Anand documented as of this encounter Visit Diagnoses Not on filedocumented in this encounter Additional Health Concerns Assessment Noted Time PHQ-9 Depression Total Score: 10 025 11:07 AM EDT documented as of this encounter Care Teams Security Sales Consultant Relationship Specialty Start Date End Date Hue Meza MD [address] [place] [address] PCP - General Internal Medicine 12/22/22 Fely Bowens, PharmD [address] [place] [phone] Pharmacist Internal Medicine 06/02/24 documented as of this encounter
--- OUTSIDE RECORDS SUMMARY | 2025-02-24 17:29 | XMS_ITS | Encounter Summary ---
Author Organization [employer] Address 75 [facility] 7t [place] [address] Care Team Providers Care Chief Nurse Executive Name Role Phone Hue Meza MD Primary Care Pro vider Fely Bowens PharmD Unavailable [phone] Reason for Visit * Reason Comments Med Refill Encounter Details Date Type Department Care Team (Late st Contact Info) Description 12/06/[address] [facility] [address] [place], [place] [phone] Racheal Mcclain, PharmD [address] [place], [place] [phone] Social History Tobacco Use Types Packs/Day Years [...] Description 04/20/2025 11:30 AM EST Medication Management [facility] [address] [place] [address] Taylor Chan, BessyD [address] [place], [place] [phone] documented as of this encounter Goals Goal [...] documented as of this encounter Care Teams Chief Nurse Executive Relationship Specialty Start Date End Date Hue Meza MD [address] [place] [address] PCP - General Internal Medicine 12/22/22 Fely Bowens BessyD [address] [place] [phone] Pharmacist Internal Medicine 06/02/24 documented as of this encounter
--- OUTSIDE RECORDS SUMMARY | 2025-02-24 17:29 | XMS_ITS | Encounter Summary ---
Author Organization [employer] Address 75 [facility] 7t [place] [address] Care Team Providers Care Seating Captain Name Role Phone Hue Meza MD Primary Care Pro vider Fely Bowens PharmD Unavailable [phone] Reason for Visit * Reason Comments Med Refill Encounter Details Date Type Department Care Team (Late st Contact Info) Description 01/24/2023 Refill [facility] [address] [place], [place] [phone] Hue Meza MD [address] [place], [place] [phone] Closed fracture dislocation of lumbar spine, sequela [...] Description 04/20/2025 11:30 AM EST Medication Management [facility] [address] [place] [phone] Taylor Chan PharmD [address] [place], [place] [phone] documented as of this encounter Goals Goal [...] documented as of this encounter Care Teams Seating Captain Relationship Specialty Start Date End Date Hue Meza MD [address] [place] [address] [phone] PCP - General Internal Medicine 12/22/22 Fely Bowens, BessyD [address] [place] [address] [phone] Pharmacist Internal Medicine 06/02/24 documented as of this encounter
--- OUTSIDE RECORDS SUMMARY | 2025-02-24 17:29 | XMS_ITS | Encounter Summary ---
Author Organization [employer] Address 75 [facility] 7t [place] [address] Care Team Providers Care Blasting Machine Operator Name Role Phone Hue Meza MD Primary Care Pro vider Fely Bowens PharmD Unavailable [phone] Reason for Visit * Reason Comments Med Refill Encounter Details Date Type Department Care Team (Late st Contact Info) Description 12/28/2022 Refill [facility] [address] [place] [address] Cecy Gonzalez, AVIS Dementia without behavioral disturbance, [...] Description 04/20/2025 11:30 AM EST Medication Management [facility] [address] [place] [address] [phone] Taylor Chan PharmD [address] [place] [phone] documented as of this encounter Goals Goal [...] unspecified dementia severity, unspecified dementia type (CMS/HCC) ([facility]) documented in this encounter Additional Health Concerns Assessment Noted Time PHQ-9 Depression Total Score: 15 023 1:49 PM EDT documented as of this encounter Care Teams Blasting Machine Operator Relationship Specialty Start Date End Date Hue Meza MD [address] [place] [address] [phone] PCP - General Internal Medicine 12/22/22 Fely Bowens PharmD [address] [place] [address] [phone] Pharmacist Internal Medicine 06/02/24 documented as of this encounter
--- OUTSIDE RECORDS SUMMARY | 2025-02-24 17:29 | XMS_ITS | Encounter Summary ---
Author Organization [employer] Address 75 [facility] 7t [place] [address] Care Team Providers Care Seasoner Name Role Phone Hue Meza MD Primary Care Pro vider Fely Bowens PharmD Unavailable [phone] Reason for Visit * Reason Comments Med Refill Encounter Details Date Type Department Care Team (Late st Contact Info) Description 06/21/2024 Refill [facility] [address] [place], [place] [phone] Hue Meza MD [address] [place] [address] Neuropathy Social History Tobacco Use Types Packs/Day [...] Description 04/20/2025 11:30 AM EST Medication Management [facility] [address] [place] [address] Taylor Chan, PharmD [address] [place] [address] documented as of this encounter Goals Goal [...] documented as of this encounter Care Teams Seasoner Relationship Specialty Start Date End Date Hue Meza MD [address] [place] [address] PCP - General Internal Medicine 12/22/22 Fely Bowens, Jamie [address] [place] [phone] Pharmacist Internal Medicine 06/02/24 documented as of this encounter
--- OUTSIDE RECORDS SUMMARY | 2025-02-24 17:29 | XMS_ITS | Encounter Summary ---
Author Organization [employer] Address 75 [facility] 7t [place] [address] Care Team Providers Care Contact Worker Name Role Phone Hue Meza MD Primary Care Pro vider Fely Bowens PharmD Unavailable [phone] Reason for Visit * Reason Comments Med Refill Encounter Details Date Type Department Care Team (Late st Contact Info) Description 12/18/2024 Refill [facility] [address] [place], [place] [phone] Hue Meza MD [address] [place] [address] Neuropathy Social History Tobacco Use Types Packs/Day [...] Description 04/20/2025 11:30 AM EST Medication Management [facility] [address] [place] [address] Taylor Chan, PharmD [address] [place] [phone] documented as of this encounter Goals Goal [...] documented as of this encounter Care Teams Contact Worker Relationship Specialty Start Date End Date Hue Meza MD [address] [place] [address] PCP - General Internal Medicine 12/22/22 Fely Bowens, Jamie [address] [place] [phone] Pharmacist Internal Medicine 06/02/24 documented as of this encounter
--- OUTSIDE RECORDS SUMMARY | 2025-02-24 17:29 | XMS_ITS | Encounter Summary ---
Author Organization [employer] [facility] Address [address] [facility] 7t [place] [address] Care Team Providers Care Metal Bonder Name Role Phone Cecy Gonzalez PSYCHOLOGICAL OPERATIONS SPECIALIST Primary Care Provider Hue Fish MD Primary Care Pro vider Fely Bowens PharmD Unavailable [phone] Reason for Visit * Reason Comments Med Refill Encounter Details Date Type Department Care Team (Late st Contact Info) Description 12/12/2022 Refill [facility] [address] [place] [address] Cecy Gonzalez FNP Primary hypertension Social History [...] Description 04/20/2025 11:30 AM EST Medication Management [facility] [address] [place] [address] Taylor Chan, PharmD [address] [place] [address] documented as of this encounter Goals Goal [...] documented as of this encounter Care Teams Metal Bonder Relationship Specialty Start Date End Date Cecy Gonzalez FNP PCP - General Family Medicine 08/22/22 12/21/22 Hue Meza MD [address] [place] [phone] PCP - General Internal Medicine 12/22/22 Fely Bowens PharmD [address] [place] [phone] Pharmacist Internal Medicine 06/02/24 documented as of this encounter
== END 2025-02-24 13:09 | disposition home or self-care (01) ==
LOC: HO.CT 13:08
PROVIDERS: PCP Student in an Organized Health Care Education/Training Program; Visit Provider Student in an Organized Health Care Education/Training Program
DX: S32.000A Wedge compression fracture of unspecified lumbar vertebra, initial encounter for closed fracture (principal)
CPT/HCPCS: 72131

== ENCOUNTER → 2025-02-24 13:12 | Outpatient (BNV) | payer OTHER, SELFPAY | PROVIDERS: PCP Student in an Organized Health Care Education/Training Program; Visit Provider Radiology Diagnostic Radiology | DX: S32.029A Unspecified fracture of second lumbar vertebra, initial encounter for closed fracture (principal) | CPT/HCPCS: 72131 ==

== ENCOUNTER 2025-02-24 13:25 | Outpatient (AMB) | payer OTHER, SELFPAY ==
[2025-02-24 13:33] VITALS: BMI 28.9
--- NOTE | 2025-02-24 13:33 | A.OFFVIS_ITS ---
VS Expanded 02/24/25 13:33 Height 4 ft 11 in Weight 143 lb BMI 28.9 Intake Visit Reasons: T2DM A1C 9.4 Allergies losartan Adverse Reaction (Mild, Verified 02/23/25 11:53) Cough Nutrition Presentation Details: Pt presents for medical nutrition therapy for uncontrolled type 2 diabetes (most recent A1c at 9.4%). Patient presents with with her granddaughter during this appointment (Erin) Pt reports lack of appetite, no dentures, choosing starches as the main meals and snacks with very little protein foods. Patient expresses interest in learning food choices to incorporating her diet to improve her diet and blood glucose level Patient reports choosing original Ensure 1-3 a day due to lack of appetite BS Monitoring Most Recent Diabetes Results: Creatinine, (0.5-1.4) 1.08 mg/dL 01/12/25 BUN, (9-16) 14 mg/dL 01/12/25 Sodium, (135-145) 144 mmol/L 01/12/25 Potassium, (3.3-5.1) 4.5 mmol/L 01/12/25 Chloride, (96-108) 108 mmol/L 01/12/25 Carbon Dioxide, (22-29) 31 mmol/L H 01/12/25 Calcium, (8.4-10.2) 8.9 mg/dL 01/12/25 AST, (5-31) 43 U/L H 01/12/25 ALT, (0-31) 36 U/L H 01/12/25 Total Protein, (6.5-8.0) 7.4 g/dL 01/12/25 Albumin, (3.5-5.0) 4.3 g/dL 01/12/25 TSE-Tvetpub-Ty.Jeor Equation Height: 4 ft 11 in Weight: 143 lb Resting Metabolic Rate: 1034.93 Calculated Activity Level: Sedentary Calories Needed to Maintain Weight: 1241.92 Diagnosis Nutrition problem #1: food nutri know defi As related to (etiology) #1: diagnosis As evidenced by (sign/symptom) #1: knowledge deficit of diet [facility] Medical History Uncontrolled type 2 diabetes mellitus with hyperglycemia Osteoporosis Insomnia Gout Osteoarthritis of acromioclavicular joints, bilateral Latent tuberculosis Restrictive lung disease CAD (coronary artery disease) Asthma Allergic rhinitis COPD exacerbation COPD (chronic obstructive pulmonary disease) Cough Hypertension Diabetes Surgical History History of hysterectomy Hx of CABG Family History Mother Acute arthritis Social History Household Members: Family Housing: Apartment Do you presently have visiting nurse or other home services: Yes ([facility]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) Alcohol intake: never Patient Tobacco Use Status: Never used Tobacco e-Cigarette/Vaping Use: Never Used Second Hand Smoke Exposure: No service: No Current occupational status: unemployed Assessment & Plan Assessment & Plan (1) Uncontrolled type 2 diabetes mellitus with hyperglycemia: Code(s): E11.65 - Type 2 diabetes mellitus with hyperglycemia Category: Medical Plan: RECOMMEND FOR PCP TO SWITCH TO HIGH-PROTEIN SHAKES (GLUCERNA OR HIGH-PROTEIN ENSURE WHICH HAVE LESS CARBOHYDRATES AND HIGHER PROTEIN THAN THE ORIGINAL PROTEIN SHAKE current wt: 65 kg ( 03/12 ) est kcal needs as per MSJ: 1300- 1500 CALORIES est protein needs as per 1 g/kg BW: 60-70 est fluid needs as per 30 ml/kg BW: 2000 Recommended fiber > 12 g /day and gradually increase up to 25-28 g /day or as tolerated Nutrition topics discussed : Reviewed (R), Pt verbalized understanding (V) , not applicable (N/A) R, : Healthy Plate Method Concept: R, V, N/A: Carbohydrates: food sources of carbohydrates, relationship of carbohydrates to blood glucose, fatty liver GI health. Recommended total amount of carbohydrates per meals and snack. Differences between simple carbohydrates and complex carbohydrates R, : Lean protein foods including vegan , vegetarian sources of protein. Jung efits of protein (including but not limited to healing, nutritional value , benefits in weight loss, glucose control R, V, N/A: Fats : Source of fats, benefits of fats. Difference between saturated and unsaturated fats. Saturated fats and its contribution to inflammation R, V, N/A: Fiber: food sources and role of fiber in the diet (including but not limited to its role as a prebiotic, benefits in constipation, role in IBS , role in glucose control and cholesterol level) R, V, N/A: Hydration: role of hydration and prevention of dehydration or over hydration. Foods and water content. R, V, N/A: Vitamins and Minerals in foods and supplements R, V, N/A: Interpreting food labels, including serving size, macronutrients, vitamins, minerals, allergens, ingredient list , % daily value Patient Instructions: * Switch to ensure high protein SHAKEs 1-2 a day (Cambia a las batidas altas en proteina : glucerna o ensure high protein, glucose control) * Incorporate tuna, scrambled eggs, peanut butter, milk (fair life milk), choose soft protein foods to include with starches (incorpora proteinas suaves con los almidones: tuna con pasta, revoltillo de huevo con edenilson, mantequilla de chelsea en la shimon , leche (fair life es mas kendal en proteina) Coding Level of Care Code Nutr Indiv Intake (82967) Diagnoses Uncontrolled type 2 diabetes mellitus with hyperglycemia E11.65 Time Spent (min) 30
[2025-03-02 13:07] VITALS: BMI 28.9
== END 2025-02-24 14:03 | disposition home or self-care (01) ==
LOC: HO.ENCR 13:26
PROVIDERS: PCP Student in an Organized Health Care Education/Training Program; Visit Provider Dietitian, Registered
DX: E11.65 Type 2 diabetes mellitus with hyperglycemia (principal)